=== PATIENT | female | born 1940 | race Caucasian/White ===

== ENCOUNTER → 2017-12-28 10:18 | Outpatient (BNVA) | payer MEDICARE, SELFPAY | PROVIDERS: PCP Student in an Organized Health Care Education/Training Program; Visit Provider Internal Medicine Cardiovascular Disease | DX: I48.0 Paroxysmal atrial fibrillation (principal); I10 Essential (primary) hypertension; E03.9 Hypothyroidism, unspecified; Z95.0 Presence of cardiac pacemaker; E78.2 Mixed hyperlipidemia | CPT/HCPCS: 93280; 99213 ==

== ENCOUNTER 2018-02-15 09:29 | Outpatient (CLI) | payer MEDICARE, SELFPAY ==
--- NOTE | 2018-02-15 09:25 | DI.RAD_ITS ---
SYMPTOM/DIAGNOSIS: S/P RT TKA RIGHT KNEE: Comparison is made with 12/20/16. Standing views were performed. There has been no change in the appearance of the right total knee prosthesis or surrounding bone.
== END 2018-02-15 09:49 ==
PROVIDERS: PCP Student in an Organized Health Care Education/Training Program; Visit Provider Student in an Organized Health Care Education/Training Program
DX: Z96.651 Presence of right artificial knee joint (principal); Z47.1 Aftercare following joint replacement surgery; I10 Essential (primary) hypertension; M17.11 Unilateral primary osteoarthritis, right knee
CPT/HCPCS: 99213; 73560

== ENCOUNTER 2018-03-09 01:19 | Outpatient (CLI) | payer MEDICARE, SELFPAY ==
--- NOTE | 2018-03-09 09:02 | DI.RAD_ITS ---
SYMPTOM/DIAGNOSIS: CHECK FOR HARRELL CAPSULE K21.9 PA AND LATERAL CHEST: 03/09/18 This examination was obtained to evaluate Harrell capsule position. There appears to be a mid esophageal indwelling device. There is also a transvenous cardiac pacemaker in position. Cardiac size is within normal limits. Lungs are clear and well expanded. No pleural effusion seen. Vascular clips noted in right upper quadrant consistent with previous cholecystectomy. 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
== END 2018-03-09 01:39 ==
PROVIDERS: PCP Student in an Organized Health Care Education/Training Program; Visit Provider Internal Medicine Gastroenterology
DX: K21.9 Gastro-esophageal reflux disease without esophagitis (principal); Z95.0 Presence of cardiac pacemaker
CPT/HCPCS: 71046

== ENCOUNTER 2018-03-13 00:44 | Outpatient (CLI) | payer MEDICARE, SELFPAY ==
--- NOTE | 2018-03-13 08:05 | DI.RAD_ITS ---
SYMPTOM/DIAGNOSIS: CHECK FOR HARRELL CAPSULE PA AND LATERAL CHEST: 03/13 Heart is not enlarged. Lungs are clear. There is a transvenous cardiac pacemaker in position. Presumed HARRELL capsule noted overlying mid-esophagus. No change from 03/09/18.
== END 2018-03-13 01:04 ==
PROVIDERS: PCP Student in an Organized Health Care Education/Training Program; Visit Provider Internal Medicine Gastroenterology
DX: Z95.0 Presence of cardiac pacemaker (principal); K21.9 Gastro-esophageal reflux disease without esophagitis
CPT/HCPCS: 71046

== ENCOUNTER 2018-03-13 07:08 | Outpatient (CLI) | payer MEDICARE, SELFPAY ==
[2018-03-13 07:48] LABS: HCT 42.5 % (36.0-46.0); HGB 14.4 g/dL (12.0-15.5); Mean Corp. HGB Concentration 33.9 g/dL (32.0-36.0); Mean Corpuscular Hemoglobin 32.3 pg (27.0-33.0); Mean Corpuscular Volume 95.3 fL (80-95); Mean Platelet Volume 12.3 fL (8.0-11.0); Platelet Count 162 x1000/uL (130-400); RBC 4.46 m/cumm (4.00-5.20); RBC Distribution Width 13.9 % (11.7-14.6); White Blood Cell Count 3.87 k/cumm (4.4-10.8)
[2018-03-13 09:08] LABS: Anion Gap 9.6 mmol/L (3-11); BUN 12 mg/dL (7-18); CO2 29.4 mmol/L (21.0-32.0); CREATININE 0.77 mg/dL (0.55-1.02); Calcium 9.3 mg/dL (8.5-10.1); Chloride 104 mmol/L (98-107); Cholesterol 204 mg/dL (50-200); Glucose 139 mg/dL (70-100); HDL Cholesterol 90 mg/dL (40-60); LDL CHOLESTEROL 101 mg/dL (<100); Potassium 4.2 mmol/L (3.5-5.1); Sodium 143 mmol/L (136-145); Triglyceride 75 mg/dL (30-150)
== END 2018-03-13 07:28 ==
PROVIDERS: PCP Student in an Organized Health Care Education/Training Program; Visit Provider Student in an Organized Health Care Education/Training Program
DX: E11.9 Type 2 diabetes mellitus without complications (principal); E03.9 Hypothyroidism, unspecified; I10 Essential (primary) hypertension; E78.5 Hyperlipidemia, unspecified
CPT/HCPCS: 36415; 80048; 80061; 83721; 85027; 71046; 84443

== ENCOUNTER 2018-03-17 00:35 | Outpatient (CLI) | payer MEDICARE, SELFPAY ==
--- NOTE | 2018-03-17 08:30 | DI.RAD_ITS ---
SYMPTOMS/DIAGNOSIS: CHECK FOR HARRELL CAPSULE PA AND LATERAL CHEST: The lungs are free of infiltrate. There is no pleural effusion. The cardiovascular structures are intact. Pacing wires are noted ending in the right ventricle and right atrium and are in stable position when compared with prior images. A Harrell capsule is noted overlying the mid esophagus, also unchanged in position when compared with previous images. SUMMARY: No acute abnormality is seen.
== END 2018-03-17 00:55 ==
PROVIDERS: PCP Student in an Organized Health Care Education/Training Program; Visit Provider Internal Medicine Gastroenterology
DX: K21.9 Gastro-esophageal reflux disease without esophagitis (principal); Z95.0 Presence of cardiac pacemaker
CPT/HCPCS: 71046

== ENCOUNTER 2018-03-22 09:41 | Outpatient (CLI) | payer MEDICARE, SELFPAY ==
--- NOTE | 2018-03-22 09:20 | DI.RAD_ITS ---
SYMPTOMS/DIAGNOSIS: CHECK FOR HARRELL CAPSULE, K21.9 PA CHEST: Comparison is made with February,. A pacemaker is again noted. The heart size is normal. An electronic device is again noted posterior to the heart. The lungs are clear. IMPRESSION: No change in position of the Harrell capsule compared with the previous exam.
== END 2018-03-22 10:01 ==
PROVIDERS: PCP Student in an Organized Health Care Education/Training Program; Visit Provider Internal Medicine Gastroenterology
DX: K21.9 Gastro-esophageal reflux disease without esophagitis (principal); Z95.0 Presence of cardiac pacemaker
CPT/HCPCS: 71045

== ENCOUNTER 2018-03-24 00:28 | Outpatient (CLI) | payer MEDICARE, SELFPAY ==
--- NOTE | 2018-03-24 09:16 | DI.RAD_ITS ---
SYMPTOMS/DIAGNOSIS: CHECK FOR HARRELL CAPSULE PA CHEST: A single view was obtained and shows the previously noted Harrell capsule unchanged in position overlying the mid esophagus. The lungs are clear and well expanded.
== END 2018-03-24 00:48 ==
PROVIDERS: PCP Student in an Organized Health Care Education/Training Program; Visit Provider Internal Medicine Gastroenterology
DX: K21.9 Gastro-esophageal reflux disease without esophagitis (principal); Z95.0 Presence of cardiac pacemaker
CPT/HCPCS: 71046

== ENCOUNTER 2018-03-31 09:50 | Outpatient (CLI) | payer MEDICARE, SELFPAY ==
--- NOTE | 2018-03-31 09:50 | DI.RAD_ITS ---
SYMPTOM/DIAGNOSIS: CHECK FOR HARRELL CAPSULE PA CHEST: Comparison is made with prior examinations. The Harrell capsule is not visualized on the current examination. Pacing wires are stable in position. Heart size and pulmonary vasculature are within normal limits. The lungs are clear and well expanded. No effusions or pneumothoraces are identified. Surgical clips are seen in the right upper quadrant, likely reflecting prior cholecystectomy. IMPRESSION: 1. No acute pulmonary process. 2. Non visualization of the Harrell capsule.
== END 2018-03-31 10:10 ==
PROVIDERS: PCP Student in an Organized Health Care Education/Training Program; Visit Provider Internal Medicine Gastroenterology
DX: K21.9 Gastro-esophageal reflux disease without esophagitis (principal); Z95.0 Presence of cardiac pacemaker
CPT/HCPCS: 71045

== ENCOUNTER → 2018-04-04 12:49 | Outpatient (BNVA) | payer MEDICARE, SELFPAY | PROVIDERS: PCP Student in an Organized Health Care Education/Training Program; Visit Provider Nurse Practitioner Primary Care | DX: R69 Illness, unspecified (principal) ==

== ENCOUNTER 2018-04-04 13:30 | Outpatient (CLI) | payer MEDICARE, SELFPAY | END 2018-04-04 13:50 | PROVIDERS: PCP Student in an Organized Health Care Education/Training Program; Visit Provider Nurse Practitioner Primary Care | DX: I44.30 Unspecified atrioventricular block (principal); I48.91 Unspecified atrial fibrillation; E66.9 Obesity, unspecified; I10 Essential (primary) hypertension; E11.9 Type 2 diabetes mellitus without complications; Z45.018 Encounter for adjustment and management of other part of cardiac pacemaker | CPT/HCPCS: 93288; 99213 ==

== ENCOUNTER 2018-05-19 09:39 | Outpatient (CLI) | payer MEDICARE, SELFPAY ==
--- NOTE | 2018-05-19 09:45 | DI.RAD_ITS ---
SYMPTOM/DIAGNOSIS: RT LEG PAIN RIGHT TIBIA AND FIBULA: Comparison is made with right knee dated 15 February 2018. There is a total knee prosthesis which is partially included on the exam. No fracture or abnormal bony lucencies are seen. There are degenerative changes of the ankle and calcaneal spurs. IMPRESSION: No acute abnormality.
== END 2018-05-19 09:59 ==
PROVIDERS: PCP Student in an Organized Health Care Education/Training Program; Referring Provider Student in an Organized Health Care Education/Training Program; Visit Provider Student in an Organized Health Care Education/Training Program
DX: M79.604 Pain in right leg (principal); Z96.651 Presence of right artificial knee joint; M19.071 Primary osteoarthritis, right ankle and foot; M77.31 Calcaneal spur, right foot; M79.89 Other specified soft tissue disorders
CPT/HCPCS: 99214; 73590

== ENCOUNTER 2018-05-22 00:38 | Outpatient (CLI) | payer MEDICARE, SELFPAY ==
--- NOTE | 2018-05-22 11:35 | DI.US_ITS ---
SYMPTOM/DIAGNOSIS: RT LEG SWELLING, ? DVT, M79.89 RIGHT LOWER EXTREMITY ULTRASOUND: The femoral, popliteal and calf veins as well as saphenous vein appear free of thrombus. The Doppler venous wave form augments normally. No superficial venous thrombosis is seen. There is no evidence of popliteal cyst or hematoma. IMPRESSION: Negative right lower extremity ultrasound. No evidence of DVT.
== END 2018-05-22 00:58 ==
PROVIDERS: PCP Student in an Organized Health Care Education/Training Program; Visit Provider Student in an Organized Health Care Education/Training Program
DX: R22.41 Localized swelling, mass and lump, right lower limb (principal); M79.89 Other specified soft tissue disorders
CPT/HCPCS: 93971

== ENCOUNTER → 2018-06-16 09:10 | Outpatient (BNVA) | payer MEDICARE, SELFPAY | PROVIDERS: PCP Student in an Organized Health Care Education/Training Program; Referring Provider Student in an Organized Health Care Education/Training Program; Visit Provider Student in an Organized Health Care Education/Training Program | DX: M79.604 Pain in right leg (principal) | CPT/HCPCS: 99213 ==

== ENCOUNTER 2018-06-22 00:56 | Outpatient (CLI) | payer MEDICARE, SELFPAY ==
--- NOTE | 2018-06-22 12:35 | DI.CT_ITS ---
SYMPTOMS/DIAGNOSIS: RT LOWER LEG PAIN, M79.661 CT OF THE RIGHT LOWER LEG: Comparison is made with plain films dated . Images were performed from the distal femoral metaphysis through the inferior aspect of the callous. There is a total knee prothesis in place which creates artifact. No surrounding bony lucencies are seen. The bones appear osteoporotic. A smoothly marginated bony density is seen beneath the tip of the lateral malleolus. Vascular calcifications are seen. There are dilated superficial venous varicosities. IMPRESSION: Unremarkable total knee prosthesis. Osteoporosis. No evidence of fracture.
== END 2018-06-22 01:16 ==
PROVIDERS: PCP Student in an Organized Health Care Education/Training Program; Visit Provider Physician Assistant
DX: M79.661 Pain in right lower leg (principal); Z96.651 Presence of right artificial knee joint; M81.0 Age-related osteoporosis without current pathological fracture
CPT/HCPCS: 73700

== ENCOUNTER → 2018-07-13 13:32 | Outpatient (BNVA) | payer MEDICARE, SELFPAY | PROVIDERS: PCP Student in an Organized Health Care Education/Training Program; Visit Provider Internal Medicine Cardiovascular Disease | DX: R69 Illness, unspecified (principal) ==

== ENCOUNTER 2018-07-13 14:40 | Outpatient (CLI) | payer MEDICARE, SELFPAY | END 2018-07-13 15:00 | PROVIDERS: PCP Student in an Organized Health Care Education/Training Program; Visit Provider Internal Medicine Cardiovascular Disease | DX: I44.30 Unspecified atrioventricular block (principal); I48.0 Paroxysmal atrial fibrillation; I10 Essential (primary) hypertension; Z45.018 Encounter for adjustment and management of other part of cardiac pacemaker; E78.5 Hyperlipidemia, unspecified; E03.9 Hypothyroidism, unspecified; Z79.01 Long term (current) use of anticoagulants | CPT/HCPCS: 93280; 99214 ==

== ENCOUNTER → 2018-07-31 13:33 | Outpatient (BNVA) | payer MEDICARE, SELFPAY | PROVIDERS: PCP Student in an Organized Health Care Education/Training Program; Referring Provider Student in an Organized Health Care Education/Training Program; Visit Provider Student in an Organized Health Care Education/Training Program | DX: M79.604 Pain in right leg (principal) | CPT/HCPCS: 99213 ==

== ENCOUNTER 2018-09-22 01:19 | Outpatient (CLI) | payer MEDICARE, SELFPAY ==
--- NOTE | 2018-09-22 09:47 | DI.CT_ITS ---
SYMPTOMS/DIAGNOSIS: GERD, K21.9, ABNL WT LOSS, R63.4 CT SCAN OF THE ABDOMEN AND PELVIS: CT scan of the abdomen and pelvis was performed following the uneventful administration of intravenous contrast material. The visualized lung bases are clear. There is a moderate sized hiatal hernia present. The liver is normal in size. No suspicious hepatic mass is seen. The patient is status post cholecystectomy. There is no biliary ductal dilatation. The portal, superior mesenteric and spleen veins are patent. The pancreas, spleen and adrenal glands show no acute abnormality. The kidneys show normal and symmetric enhancement. No solid renal mass or obstruction is present. The urinary bladder is intact. The patient appears to be status post hysterectomy. There is mild atherosclerosis of the abdominal aorta but no aneurysmal dilatation is seen. No significant abdominal or pelvic adenopathy, ascites or pneumoperitoneum is present. There is diverticulosis of the colon but no evidence of acute diverticulitis. The bowel shows no evidence of obstruction or inflammation. There is a normal appendix present. Incidental note is made of a circumaortic left renal vein. Degenerative changes are present in the spine. There is a right convex scoliosis of the lumbar spine noted. IMPRESSION: 1. No evidence of abdominal mass or adenopathy. 2. Moderate hiatal hernia. 3. Colonic diverticulosis but no evidence of acute diverticulitis.
[2018-09-22] MEDS: Omnipaque 350 MG/ML 100 ML BTL IJ (09:48)
== END 2018-09-22 01:39 ==
PROVIDERS: PCP Student in an Organized Health Care Education/Training Program; Visit Provider Internal Medicine Gastroenterology
DX: K21.9 Gastro-esophageal reflux disease without esophagitis (principal); R63.4 Abnormal weight loss; K44.9 Diaphragmatic hernia without obstruction or gangrene; K57.30 Diverticulosis of large intestine without perforation or abscess without bleeding
CPT/HCPCS: 74177; J3490

== ENCOUNTER 2018-11-14 00:19 | Outpatient (CLI) | payer MEDICARE, SELFPAY ==
--- NOTE | 2018-11-14 13:48 | DI.NM_ITS ---
SYMPTOMS/DIAGNOSIS: GASTROPARESIS SYNDROME GASTRIC EMPTYING EXAMINATION: The patient received 1.0 mCi of technetium 99m sulfur colloid according to protocol. The 1-hour gastric emptying time was 103%, the 2-hour gastric emptying percentage was 57%, the 4-hour gastric emptying percent was 7%. These are within normal limits. IMPRESSION: Normal gastric emptying examination.
== END 2018-11-14 00:39 ==
PROVIDERS: PCP Student in an Organized Health Care Education/Training Program; Visit Provider Surgery
DX: K31.84 Gastroparesis (principal)
CPT/HCPCS: 78265

== ENCOUNTER 2018-12-01 02:29 | Outpatient (CLI) | payer MEDICARE, SELFPAY ==
--- NOTE | 2018-12-01 12:50 | DI.MAMMO_ITS ---
SYMPTOMS/DIAGNOSIS: SCREENING, Z12.31 MAMMOGRAM: Mammograms were interpreted according to the usual protocol including computer analysis with CAD system, tomosynthesis and C view imaging. The breasts are heterogeneously dense. No dominant mass or clumped microcalcification is identified in either breast. The current examination is compared with previous examinations including August 2017 and there has been no gross interval change in appearance in comparison with the previous studies. CONCLUSION: No significant evidence of malignancy at this time. Routine screening examinations are suggested at yearly intervals due to the family history of breast carcinoma. Category 1, breast density category C. MQSA ASSESSMENT OF FINDINGS: Negative. Category 1. Patient will receive a letter notifying them of these results. Bi-RADS category C. The breasts are heterogeneously dense, which may obscure small masses.
== END 2018-12-01 02:49 ==
PROVIDERS: PCP Student in an Organized Health Care Education/Training Program; Visit Provider Student in an Organized Health Care Education/Training Program
DX: Z12.31 Encounter for screening mammogram for malignant neoplasm of breast (principal)
CPT/HCPCS: 77063; 77067

== ENCOUNTER 2019-03-05 08:08 | Outpatient (CLI) | payer MEDICARE, SELFPAY ==
[2019-03-05 09:58] LABS: TSH (W/Ref FT4) 4.28 uIU/mL (0.36-3.74)
== END 2019-03-05 08:28 ==
PROVIDERS: PCP Student in an Organized Health Care Education/Training Program; Visit Provider Student in an Organized Health Care Education/Training Program
DX: E03.9 Hypothyroidism, unspecified (principal); E04.1 Nontoxic single thyroid nodule
CPT/HCPCS: 36415; 84439; 84443

== ENCOUNTER 2019-03-26 15:07 | Outpatient (CLI) | payer MEDICARE, SELFPAY ==
--- NOTE | 2019-03-26 15:03 | DI.RAD_ITS ---
EXAM: XR HIP RT COMPLETE AND AP PELVIS INDICATION: Pain after a mechanical fall, W19.XXXA. COMPARISON: No exams were available for comparison TECHNIQUE: 2D digital imaging was performed. FINDINGS: On the lateral view, there appears to be discontinuity of the cortex in the subcapital region of the right femur suspicious for nondisplaced subcapital fracture. No other fracture or dislocation is see n. The bones are normally mineralized. The soft tissues are unremarkable. IMPRESSION: Findings suspicious for nondisplaced subcapital right femoral neck fracture. A CT scan of the right hip is requested for further evaluation.
--- NOTE | 2019-03-26 15:05 | DI.RAD_ITS ---
EXAM: XR KNEE RT 3V AP,LAT,IFEANYI INDICATION: Pain after a mechanical fall, W19.XXXA. COMPARISON: XR knee RT 2V AP,lat from 02/15/2018 TECHNIQUE: 2D digital imaging was performed. FINDINGS: There are again seen postsurgical changes of a right total knee replacement. The orthopedic hardware appears in good position. No fracture is identified. The soft tissues are unremarkable. IMPRESSION: No acute fracture or dislocation.
== END 2019-03-26 15:27 ==
PROVIDERS: PCP Student in an Organized Health Care Education/Training Program; Visit Provider Family Medicine
DX: M25.551 Pain in right hip (principal); M21.851 Other specified acquired deformities of right thigh; M25.561 Pain in right knee; Z96.651 Presence of right artificial knee joint; W19.XXXA Unspecified fall, initial encounter
CPT/HCPCS: 73562; 73502

== ENCOUNTER 2019-03-26 16:27 | Emergency (ER) | payer MEDICARE, SELFPAY ==
[2019-03-26 16:28] VITALS: BP 154/72; PULSE 83; RESP 12; TEMP 36.5; O2SAT 98
--- NOTE | 2019-03-26 16:33 | ED.GENADUL_ITS ---
Discharge Plan Disposition Patient Disposition: HOME Condition: Improving Discharge Details Chief Complaint: Orthopedic Clinical Impression: Traumatic ecchymosis of multiple sites of right lower extremity Primary Care Provider: Vicenta Freed ED Provider: Brandon Wall Home Meds and New Rx's Prescriptions: Continued psyllium husk [Metamucil] 0.4 gram capsule 1.2 gm PO BID RF: 0 flecainide 150 mg tablet 150 mg PO BID Qty: 180 RF: 3 glucosam-chond vl-[id number]-sv ac 1 EACH capsule 1 ea PO DAILY RF: 0 albuterol sulfate [ProAir HFA] 8.5 GM HFA aerosol inhaler 2 puff Inhalation Q4H PRN PRNQty: 3 RF: 3 omeprazole 40 MG capsule,delayed release(DR/EC) 40 mg PO BID RF: 0 metoprolol tartrate 25 mg tablet 12.5 mg PO BID Qty: 90 RF: 3 Eliquis 5 mg tablet 5 mg PO BID Qty: 180 RF: 1 Flovent HFA 110 mcg/actuation HFA aerosol inhaler 2 puff Inhalation BID Qty: 3 RF: 3 levothyroxine 100 mcg tablet 100 mcg PO DAILY Qty: 90 RF: 3 multivitamin 1 EACH capsule 1 ea PO DAILY RF: 0 acetaminophen [Mapap Extra Strength] 500 MG tablet 1,000 mg PO TID PRN PRNQty: 120 RF: 0 Lactobacillus acidophilus Tablet,Chewable 2 tab PO DAILY RF: 0 Discharge Instructions Instructions: Contusion in Adults (ED) Additional Instructions: Follow-up in clinic if you have pain that persist beyond 7 to 10 days time. Apply ice 20 minutes of time to reduce inflammation and discomfort. May use Tylenol if needed for pain. Return to the emergency department for any acute concerns. Continue your regular medications. Medical Decision Making 79-year-old female who fell 1 week ago and is developed right hip and knee pain since that time. Referred from outpatient clinic after outpatient x-rays of the right hip revealed discontinuity of the cortex in the subcapital region of the right femur suspicious for nondisplaced subcapital fracture. The knee x-ray was unremarkable. Patient does have tenderness with axial loading and palpation of the right hip. Given the question of a subtle finding on the x-ray, the patient was referred for noncontrast CT scan of the right lower extremity. This was notable for no evidence of bony injury. Laboratories reassuring. Patient with recent fall, ecchymosis, now no evidence of bony injury and therefore consistent with muscular contusion and bruising. Discussed with her and spit a course of resolution. She is stable and appropriate for outpatient management. Lab Data Lab results reviewed: Yes I reviewed the patient's lab results. Labs: Laboratory Results - last 24 hr 03/26/19 03/26/19 03/26/19 16:58 16:58 16:58 WBC 5.17 RBC 4.07 Hgb 13.1 Hct 39.9 MCV 98.0 H MCH 32.2 MCHC 32.8 RDW 13.5 Plt Count 181 MPV 10.9 Immature Gran % 0.2 Neutrophils % 53.0 Lymphocytes % 32.9 Monocytes % 11.2 Eosinophils % 2.5 Basophils % 0.2 Absolute Neutrophils 2.74 Absolute Lymphocytes 1.70 Absolute Monocytes 0.58 Absolute Eosinophils 0.13 Absolute Basophils 0.01 PT 10.6 INR 1.1 Sodium 142 Potassium 4.0 Chloride 104 Carbon Dioxide 30.9 Anion Gap 7.1 BUN 19 H Creatinine 0.77 Estimated GFR/1.73 m2 >= 60.00 Glucose 124 H Calcium 8.9 Total Bilirubin 0.3 AST 18 ALT 28 Alkaline Phosphatase 49 Total Protein 7.1 Albumin 3.6 HPI General Mode of arrival: ambulatory . Date/Time Provider Initiated Documentation: 03/26/19 16:27 . Limitations to Documentation: no limitations . Information obtained by: patient . History of Present Illness 79 year old F presents to the emergency department with the chief complaint of Possible right hip fracture., described as moderate, and is localized to the right and lower extremity. Patient reports no radiation. and it has been constant. Movement worsens symptoms . Patient notes other (Bruising). Patient did receive the following treatments prior to arrival, none Related Data Home Medications Medication Instructions Recorded Confirmed glucosam-chond ug-[id number]-wl ac 1 ea PO DAILY NS 07/03/12 03/26/19 multivitamin 1 ea PO DAILY 11/05/12 03/26/19 albuterol sulfate [ProAir HFA] 2 puff INHALATION Q4H PRN PRN #3 06/28/16 03/26/19 inhaler acetaminophen [Mapap Extra 1,000 mg PO TID PRN PRN #120 tab 12/03/16 03/26/19 Strength] omeprazole 40 mg PO BID tab-cap 11/17/17 03/26/19 metoprolol tartrate 25 mg tablet 12.5 mg PO BID #90 tab 06/18/18 03/26/19 apixaban 5 mg tablet 5 mg PO BID #180 tab-cap 09/29/18 03/26/19 fluticasone propionate 110 2 puff INHALATION BID #3 inh 01/11/19 03/26/19 mcg/actuation HFA aerosol inhaler flecainide 150 mg tablet 150 mg PO BID #180 tab-cap 03/01/19 03/26/19 psyllium husk 0.4 gram capsule 1.2 gm PO BID cap 03/01/19 03/26/19 levothyroxine 100 mcg tablet 100 mcg PO DAILY #90 tab-cap 03/06/19 03/26/19 Lactobacillus acidophilus 2 tab PO DAILY 03/26/19 03/26/19 Previous Rx's Medication Instructions Recorded acetaminophen [Mapap Extra 1,000 mg PO TID PRN PRN #120 tab 12/03/16 Strength] metoprolol tartrate 25 mg tablet 12.5 mg PO BID #90 tab 06/18/18 apixaban 5 mg tablet 5 mg PO BID #180 tab-cap 09/29/18 fluticasone propionate 110 2 puff INHALATION BID #3 inh 01/11/19 mcg/actuation HFA aerosol inhaler flecainide 150 mg tablet 150 mg PO BID #180 tab-cap 03/01/19 levothyroxine 100 mcg tablet 100 mcg PO DAILY #90 tab-cap 03/06/19 Allergies Allergy/AdvReac Type Severity Reaction Status Date / Time ranitidine Allergy Severe WHEEZING Verified 03/26/19 16:35 cefadroxil Allergy Mild Verified 03/26/19 16:35 ciprofloxacin AdvReac Intermediate WEAKNESS Verified 03/26/19 16:35 pneumococcal 13-valent AdvReac Intermediate temp and Verified 03/26/19 16:35 conjugate to body aches [From Prevnar 13 (PF)] sucralfate AdvReac Intermediate N/V Verified 03/26/19 16:35 General Stated Complaint: Orthopedic DEXTER: 3 Review of Systems Narrative: 6 systems reviewed and otherwise neg [facility] Medical History Asthma Atrial fibrillation Essential hypertension GERD without esophagitis Hypothyroidism Sensorineural hearing loss of both ears Surgical History Cardiac Cath, 2008 Cholecystectomy Colonoscopy - IV Sedation (03/17/16) EGD - MAC (06/29/17) Extraction of cataract B/L Hernia, hiatal (banding) Hyseterectomy, Total Laparoscopic w/ BSO (07/01/16) +Endometrial cancer Pacemaker (12/04/13) Replacement of total knee joint (12/03/16) R knee Dr Del Cid sentinal lymph node dissection (07/01/16) NEG for mets from endometrium upper GI Series (10/05/17) for sx of epigastric dysphagia,GERD. Done by Dr. Duncan. Impression: Moderate sized Hiatal Hernia. Marked gastroesophageal reflux. Family History Mother , old age at age 98. No problems noted. Father , Heart disease at age 64. Heart disease [place] Sister , Colon [place] Personal history of malignant neoplasm Sister , Heart problems at age 72. Personal history of malignant neoplasm Breast cancer, dx'ed in her 60s Heart disease Sister Hypertensive disorder, systemic arterial Diabetes Sister Diabetes Sister Hypertensive disorder, systemic arterial Brother , Parkinson's at age 75. Personal history of malignant neoplasm Brother Parkinson's disease Brother , Heart condition at age 62. Hypertensive disorder, systemic arterial Diabetes Brother Hypertensive disorder, systemic arterial Diabetes Social History (Updated 03/26/19 @ 15:45 by Colleen Melendrez LPN) Smoking/Tobacco Use Status: Never Alcohol Intake: never Drug use: Never Substance use type: does not use Adopted: No Foster care: No Housing: apartment Number of Children: 0 number of grandchildren: 0 Communication Needs: Corrective Lenses current occupation: retired from [employer] Pets and animals: No Current gender identity: female What is your relationship status?: Panel score (0-1 are the most socially isolated patients): 0 Seatbelt use: always Working smoke detector in home: Yes Fire extinguisher in home: Yes Carbon monox detector in home: Yes Firearms in home: No Do you feel safe at home: Yes Do you feel safe in your relationship?: Yes Exam Narrative Exam Narrative: GEN: awake, alert, oriented 3. Pleasant, well groomed, interactive. HEAD: Normocephalic, atraumatic ENT: Mucous membranes moist, oropharynx unremarkable, External ear exam unremarkable EYES: PERRL, EOMI NECK: Full ROM, no CONSTANCE, no menigismus CHEST/RESP: Nontender, clear to auscultation bilateral, no wheeze/rhonchi/rales CARDIOVASCULAR: RRR, no murmur, rub dorian. 2+ Rad pulse bilateral ABDOMEN: Soft, nontender, no mass. +Bowel sounds EXT: Full ROM, the right lateral hip is ecchymotic and tender to palpation. No significant pain with internal or external rotation. Pain with axial loading of the femur. There is bruising and minimal tenderness of the right lateral knee. Neuro: Grossly normal neurologic exam, conversant, interactive. Psych: Speech fluent, thoughts congruent, affect normal Course Vital Signs Vital signs: Vital Signs Temperature 36.5 C 03/26/19 16:28 Pulse 83 03/26/19 16:28 Respiratory Rate 12 03/26/19 16:28 Blood Pressure 154/72 H 03/26/19 16:28 Pulse Oximetry 98 03/26/19 16:28 Temperature 36.5 C 03/26/19 16:28 Temperature Source Temporal Artery Scan 03/26/19 16:28 Pulse 83 03/26/19 16:28 Respiratory Rate 12 03/26/19 16:28 Blood Pressure 154/72 H 03/26/19 16:28 Blood Pressure Position Sitting 03/26/19 16:28 Pulse Oximetry 98 03/26/19 16:28 Oxygen Delivery Method Room Air 03/26/19 16:28 Oxygen Flow Rate 0 03/26/19 16:28 Pain Level 5 03/26/19 16:28
[2019-03-26] MEDS: Normal Saline Flush 10 ML SYR IVP (17:03)
[2019-03-26 17:11] LABS: Abs Immature Grans 0.01 k/cumm (0.0-0.09); Absolute Basophil Count 0.01 k/cumm (0.0-0.2); Absolute Eosinophil Count 0.13 k/cumm (0.0-0.7); Absolute Monocyte Count 0.58 k/cumm (0.11-0.7); Absolute Neutrophil Count 2.74 k/cumm (1.2-6.7); Basophils % 0.2; Eosinophils % 2.5; HCT 39.9 % (36.0-46.0); HGB 13.1 g/dL (12.0-15.5); Immature Grans % 0.2; Lymphocytes % 32.9; Mean Corp. HGB Concentration 32.8 g/dL (32.0-36.0); Mean Corpuscular Hemoglobin 32.2 pg (27.0-33.0); Mean Platelet Volume 10.9 fL (8.0-11.0); Monocytes % 11.2; Platelet Count 181 x1000/uL (130-400); RBC 4.07 m/cumm (4.00-5.20); RBC Distribution Width 13.5 % (11.7-14.6); White Blood Cell Count 5.17 k/cumm (4.4-10.8)
[2019-03-26 17:18] LABS: INR 1.1 (0.9-1.1); Prothrombin Time 10.6 sec (9.3-11.0)
--- NOTE | 2019-03-26 17:18 | DI.CT_ITS ---
EXAM: CT LOWER EXTREMITY RT WO CLINICAL HISTORY: R hip question fracture. Pain TECHNIQUE: Imaging Protocol: Axial computed tomography images with coronal and sagittal reformatted images were created and reviewed. COMPARISON: XR HIP RT COMPLETE AP PELVIS from 03/26/2019 FINDINGS: Bones: The osseous structures and articular surfaces are intact. There is no evidence of fracture or dislocation. Bony alignment is satisfactory. There is no evidence of joint space narrowing or cysti c degeneration seen. There is periarticular spurring of the acetabulum and the femoral head. Soft Tissues: Normal. IMPRESSION: No acute fracture or dislocation. If symptoms persist, an MRI may be considered for further evaluati on. DATA REPOSITORY: All CT scans at this facility are submitted to the National Radiology Data Registry (NRDR) Dose Index Registry (DIR) with the [employer] (ACR). RADIATION OPTIMIZATION: All CT scans at this facility use at least one of these dose optimization te chniques: automated exposure control; mA and/or kV adjustment per patient size (includes targeted exa ms where dose is matched to clinical indication); or iterative reconstruction.
[2019-03-26 17:21] LABS: ALT 28 U/L (14-59); AST 18 U/L (15-37); Albumin 3.6 g/dL (3.4-5.0); Alkaline Phosphatase 49 U/L (46-116); Anion Gap 7.1 mmol/L (3-11); BUN 19 mg/dL (7-18); Bilirubin, Total 0.3 mg/dL (0.2-1.0); CO2 30.9 mmol/L (21.0-32.0); CREATININE 0.77 mg/dL (0.55-1.02); Calcium 8.9 mg/dL (8.5-10.1); Chloride 104 mmol/L (98-107); Glucose 124 mg/dL (74-106); Sodium 142 mmol/L (136-145); Total Protein 7.1 g/dL (6.4-8.2)
--- NOTE | 2019-03-26 17:30 | DI.VRAD_ITS ---
PROCEDURE INFORMATION: Exam: CT Right Lower Extremity Without Contrast, Hip Exam date and time: 03/26/2019 5:13 PM Age: 79 years old Clinical history: Pain; Hip; Right TECHNIQUE: Imaging protocol: CT of the Right lower extremity without contrast was performed. Exam focused on the hip. COMPARISON: CR XR HIP RT COMPLETE AP PELVIS 03/26/2019 2:57 PM FINDINGS: Bones/joints: Normal. No acute fracture or dislocation. Soft tissues: Normal. IMPRESSION: Unremarkable CT. Dictated and Authenticated by: Antonio Maldonado MD. Ordering:JR Taylor MD
[2019-03-26 17:59] VITALS: BP 119/80; PULSE 65; TEMP 37; O2SAT 97
== END 2019-03-26 18:03 | disposition home or self-care (01) ==
PROVIDERS: Emergency Provider Emergency Medicine; PCP Student in an Organized Health Care Education/Training Program
DX: S70.01XA Contusion of right hip, initial encounter (principal); S80.01XA Contusion of right knee, initial encounter; W19.XXXA Unspecified fall, initial encounter; Z79.01 Long term (current) use of anticoagulants; I48.91 Unspecified atrial fibrillation; I10 Essential (primary) hypertension
CPT/HCPCS: 36415; 73562; 80053; 86900; 86901; 99284; 73502; 73700; 85025; 85610

== ENCOUNTER → 2019-05-04 10:02 | Outpatient (BNVA) | payer MEDICARE, SELFPAY | PROVIDERS: PCP Student in an Organized Health Care Education/Training Program; Referring Provider Student in an Organized Health Care Education/Training Program; Visit Provider Student in an Organized Health Care Education/Training Program | DX: M70.61 Trochanteric bursitis, right hip (principal); M25.551 Pain in right hip; G57.01 Lesion of sciatic nerve, right lower limb; I10 Essential (primary) hypertension | CPT/HCPCS: 20610; 99213; J1040 ==

== ENCOUNTER 2019-06-14 08:33 | Outpatient (CLI) | payer MEDICARE, SELFPAY ==
[2019-06-14 09:53] LABS: TSH (W/Ref FT4) 2.15 uIU/mL (0.36-3.74)
== END 2019-06-14 08:53 ==
PROVIDERS: PCP Student in an Organized Health Care Education/Training Program; Visit Provider Student in an Organized Health Care Education/Training Program
DX: E03.9 Hypothyroidism, unspecified (principal); E04.1 Nontoxic single thyroid nodule; R23.2 Flushing
CPT/HCPCS: 36415; 84443

== ENCOUNTER → 2019-06-15 10:39 | Outpatient (BNVA) | payer MEDICARE, SELFPAY | PROVIDERS: PCP Student in an Organized Health Care Education/Training Program; Referring Provider Student in an Organized Health Care Education/Training Program; Visit Provider Student in an Organized Health Care Education/Training Program | DX: G57.01 Lesion of sciatic nerve, right lower limb (principal); M70.61 Trochanteric bursitis, right hip; Z98.890 Other specified postprocedural states; I10 Essential (primary) hypertension | CPT/HCPCS: 99213 ==

== ENCOUNTER 2019-06-19 01:59 | Outpatient (CLI) | payer MEDICARE, SELFPAY ==
--- NOTE | 2019-06-19 12:00 | DI.US_ITS ---
EXAM: US THYROID CLINICAL HISTORY: thyroid nodules, e04.1, flushing, r23.2, ? change in nodules TECHNIQUE: Ultrasound performed using standard protocol. COMPARISON: US lower extremity venous RT from 05/22/2018 FINDINGS: Thyroid ultrasound was performed according to the usual protocol. Right thyroid lobe measures 42 x 1 4 x 14 millimeters. Left thyroid lobe measures 41 x 18 x 14 millimeters. Thyroid parenchyma is diff usely heterogeneous. 5 millimeters solid mildly hypoechoic nodule noted, lower pole of left thyroid lobe. No other focal findings. IMPRESSION: Heterogeneous appearance of thyroid parenchyma. 5 millimeter hypoechoic nodule left thyroid lobe. F ollow-up thyroid ultrasound recommended in 12 months. DATA REPOSITORY:
== END 2019-06-19 02:19 ==
PROVIDERS: PCP Student in an Organized Health Care Education/Training Program; Visit Provider Student in an Organized Health Care Education/Training Program
DX: E04.1 Nontoxic single thyroid nodule (principal); R23.2 Flushing
CPT/HCPCS: 76536

== ENCOUNTER 2019-07-03 00:24 | Outpatient (CLI) | payer MEDICARE, SELFPAY ==
--- NOTE | 2019-07-03 09:45 | DI.NM_ITS ---
EXAM: NM BONE SCAN WHOLE BODY GRP CLINICAL HISTORY: RIGHT ILIAC BONE PAIN, M89.8X8. TECHNIQUE: Injected Dose: 26 mCi Tc-99m MDP Delayed Images: 2-3 hours. COMPARISON: CT ABDOMEN PELVIS W from 09/22/2018 from 11/14/2018 FINDINGS: Symmetric axial uptake. Bilateral renal excretion is identified. There are foci of increased radiotra cer uptake on the right at L4-L5 and L5-S1 and on the left at L3-L4. These areas correspond to degen erative changes in the lumbar spine as identified on the CT scan from 09/22/2018. A right convex scol iosis of the lumbar spine is noted. Symmetric uptake is seen in the shoulders bilaterally, which is likely degenerative. Findings consistent with a right knee replacement are noted. There is symmetri c uptake in the feet. This likely reflects degenerative change. Correlation with plain films may be obtained. No abnormal radiotracer uptake is seen the pelvis. No findings to definitely suggest met astatic disease are present. There is symmetric uptake seen in the kidneys and urinary bladder. IMPRESSION: 1. No definite evidence to suggest osseous metastatic disease. 2. Findings most suggestive of degenerative changes in the axial and appendicular skeleton as describ ed above. The radiotracer uptake seen in the lower lumbar spine appears to correspond to the signifi cant degenerative changes in the patient as seen on the CT scan from 09/22/2018. 3. No abnormal radiotracer uptake is seen in the pelvis. DATA REPOSITORY:
== END 2019-07-03 00:44 ==
PROVIDERS: PCP Student in an Organized Health Care Education/Training Program; Visit Provider Student in an Organized Health Care Education/Training Program
DX: M47.817 Spondylosis without myelopathy or radiculopathy, lumbosacral region (principal); M89.8X8 Other specified disorders of bone, other site; M19.011 Primary osteoarthritis, right shoulder; M19.012 Primary osteoarthritis, left shoulder; Z96.651 Presence of right artificial knee joint
CPT/HCPCS: 78306

== ENCOUNTER → 2019-07-09 10:49 | Outpatient (BNVA) | payer MEDICARE, SELFPAY | PROVIDERS: PCP Student in an Organized Health Care Education/Training Program; Referring Provider Student in an Organized Health Care Education/Training Program; Visit Provider Student in an Organized Health Care Education/Training Program | DX: M70.61 Trochanteric bursitis, right hip (principal) | CPT/HCPCS: 20610; 99213; J1030; J1040 ==

== ENCOUNTER → 2019-07-11 09:18 | Outpatient (BNVA) | payer MEDICARE, SELFPAY | PROVIDERS: PCP Student in an Organized Health Care Education/Training Program; Referring Provider Student in an Organized Health Care Education/Training Program; Visit Provider Physician Assistant | DX: I48.91 Unspecified atrial fibrillation (principal); Z79.899 Other long term (current) drug therapy; Z45.018 Encounter for adjustment and management of other part of cardiac pacemaker | CPT/HCPCS: 93280; 99211; 99213 ==

== ENCOUNTER 2019-08-24 08:33 | Outpatient (CLI) | payer MEDICARE, SELFPAY ==
[2019-08-25 14:01] LABS: COVID-19 RT-PCR UVMMC Result Negative (Negative)
== END 2019-08-24 08:53 ==
PROVIDERS: PCP Student in an Organized Health Care Education/Training Program; Visit Provider Student in an Organized Health Care Education/Training Program
DX: R06.02 Shortness of breath (principal); R50.9 Fever, unspecified
CPT/HCPCS: U0003

== ENCOUNTER 2019-09-24 01:26 | Outpatient (CLI) | payer MEDICARE, SELFPAY ==
--- NOTE | 2019-09-24 07:15 | DI.NM_ITS ---
APPROVED REPORT Exam: Pharmacologic Patient Location: Out-Patient Room/Bed: Stress Nurse: Amy Smith RN BMI: 32.11 Baseline Rhythm: Atrial Paced, R BBB. Comment: MN=0.40 Indications: Patient testing today = Flecanide Surveillance (Atrial Fibrillation). Medical History Medical History: Atrial Fibrillation, AV Heart Block, GERD, Hypothyroidism. Cardiac Medications: Flecainide, Apixaban, Metoprolol Tartrate. Allergies: Ranitidine, Cefadroxil, Ciprofloxacin, Pneumococcal 13 Valent, Sucralfate. Cardiac Risk Factors: FHX of CAD, HTN, Asthma Previous Cardiac Procedures: Pacemaker 2013, Cardiac Cath 2008. Pretest Chest Pain Characteristics: None Exercise History: Sedentary Physical Disabilities: Patient unable to walk in treadmill. Lung Sounds: Clear to auscultation Heart Sounds: Regular Stress Test Details Test: Pharmacologic stress testing performed using 0.4 mg of regadenoson per 5 mL given IV over 10 s econds. Reason for pharmacologic stress test: physical limitation. Nuclear Acquisition: Rest Tc-99m/Stress Tc-99m 1 day Rest Isotope: Tc-99m Sestamibi. Dose: 10.8 Date: 09/24/2019 Injection Time: 0845 Stress Isotope: Tc-99m Sestamibi. Dose: 33.2 Date: 09/24/2019 Injection Time: 1025 HR Resting HR Supine: 62 bpm Max Heart Rate (APMHR): 140 bpm Target HR (85% APMHR): 119 bpm Max HR Achieved: 67 bpm % of APMHR: 47 HR response to stress: Blunted HR response to stress BP Resting BP Supine: 138/82 mmHg Max BP: 146/80 mmHg BP response to stress: Blunted blood pressure response to stress. ECG Resting ECG: Atrial Paced, R BBB, MN=0.40. Stress ECG: , RBBB Recovery ECG: RBBB Clinical Stress Symptoms: Chest pain under left breast (rated 7/10) at approximately 20 seconds until approxim ately 4 minutes post Lexiscan injection. Stress ECG Conclusion 1. Patient underwent pharmacologic stress with Lexiscan. 2. Baseline electrocardiogram showed atrial pacing and a right bundle branch block. Blunted heart ra te and blood pressure response to pharmacologic stress. Patient complained of chest pain following t he Lexiscan infusion which persisted into recovery 3. Electrocardiographically the test was nondiagnostic due to inadequate heart rate achieved (47% of predicted for age) 4. There were no dysrhythmias Stress Test Summary STAGE HR BP Symptoms NOTES Supine 62 138/82 1 min post Lexiscan injection 65 130/70 3 min post Lexiscan injection 62 140/72 6 min post Lexiscan injection 64 146/80 9 min post Lexiscan injection 62 142/80 MPI Conclusion There is no evidence of myocardial ischemia or infarction Calculated ejection fraction is 60% Radiologist Interpretation Radiologist Interpretation by: Brandon Toure MD Interpretation Date/Time: 09/25/2019 13:29:54
[2019-09-24] MEDS: Regadenoson 0.4 MG/5 ML SYR IVP (14:50)
== END 2019-09-24 01:46 ==
PROVIDERS: PCP Student in an Organized Health Care Education/Training Program; Visit Provider Physician Assistant
DX: I48.91 Unspecified atrial fibrillation (principal); I44.30 Unspecified atrioventricular block; E03.9 Hypothyroidism, unspecified; K21.9 Gastro-esophageal reflux disease without esophagitis; Z79.899 Other long term (current) drug therapy; Z82.49 Family history of ischemic heart disease and other diseases of the circulatory system
CPT/HCPCS: 78452; 93016; 93018; 93017; J2785

== ENCOUNTER → 2019-09-28 12:30 | Outpatient (BNVA) | payer MEDICARE, SELFPAY | PROVIDERS: PCP Student in an Organized Health Care Education/Training Program; Referring Provider Student in an Organized Health Care Education/Training Program; Visit Provider Internal Medicine Cardiovascular Disease | DX: I48.91 Unspecified atrial fibrillation (principal); Z79.899 Other long term (current) drug therapy; Z95.0 Presence of cardiac pacemaker; I10 Essential (primary) hypertension | CPT/HCPCS: 99213 ==

== ENCOUNTER 2019-10-01 11:28 | Outpatient (CLI) | payer MEDICARE, SELFPAY ==
--- NOTE | 2019-10-01 10:45 | DI.RAD_ITS ---
EXAM: XR LUMBAR SPINE COMPLETE CLINICAL HISTORY: eval spinal stenosis. TECHNIQUE: 2D digital imaging was performed. COMPARISON: No exams were available for comparison FINDINGS: There are 5 lumbar type vertebral bodies. There is a right convex scoliosis of the upper lumbar spin e. No acute fracture or subluxation is seen. There is disc space narrowing at L2-3, L3-4 and L5-S1. Vacuum discs are noted at these levels. There are hypertrophic changes of the facets throughout th e lumbar spine. The bones are osteopenic. There are surgical clips in the right upper quadrant of t he abdomen. IMPRESSION: Moderately severe degenerative changes of the lumbar spine. DATA REPOSITORY: RADIATION DOSE DELIVERED:
== END 2019-10-01 11:48 ==
PROVIDERS: PCP Student in an Organized Health Care Education/Training Program; Referring Provider Student in an Organized Health Care Education/Training Program; Visit Provider Student in an Organized Health Care Education/Training Program
DX: M48.061 Spinal stenosis, lumbar region without neurogenic claudication (principal); M41.26 Other idiopathic scoliosis, lumbar region; M51.37 Other intervertebral disc degeneration, lumbosacral region; M85.88 Other specified disorders of bone density and structure, other site
CPT/HCPCS: 99213; 72110

== ENCOUNTER 2019-10-02 01:45 | Outpatient (CLI) | payer MEDICARE, SELFPAY ==
--- NOTE | 2019-10-02 14:50 | DI.CT_ITS ---
EXAM: CT LUMBAR SPINE WO CLINICAL HISTORY: PAIN, SPINAL STENOSIS LUMBAR REGION M48.061. TECHNIQUE: Imaging Protocol: Axial computed tomography images with coronal and sagittal reformatted images were created and reviewed CONTRAST MATERIAL: Intravenous: Omnipaque 350 Contrast volume:0 mL Oral: No COMPARISON: CT LUMBAR SPINE WITHOUT CONTRAST from 01/06/2016 FINDINGS: Bones: The last intervertebral disc space is designated the L5/S1 level for the numbering purpose of this examination. The vertebral body heights are well maintained. There is a right convex scoliosis of the lumbar spine. No fracture is seen. T12-L1: There is a vacuum disc. Endplate osteophytes are present. No significant central spinal ca nal stenosis is seen no significant neural foraminal stenosis is present. L1-2: No significant central spinal canal stenosis is seen. Mild bilateral neural foraminal narrowi ng is present. There are endplate osteophytes and vacuum disc present. Facet arthropathy is present . L2-3: There is a vacuum disc present. No significant central spinal canal stenosis is seen. There are degenerative changes of the facets. Endplate osteophytes are present. Moderately severe left ne ural foraminal stenosis is seen. No significant right neural foraminal stenosis is present. L3-4: There is a vacuum disc. There is a mild diffuse disc bulge. There are hypertrophic changes o f the facets. These all contribute to cause moderate central spinal canal stenosis. Moderately helen re right and moderate left neural foraminal stenosis is present. L4-5: There is a vacuum disc. Endplate osteophytes are seen. There is diffuse disc bulge. Hypertr ophic changes of the facets are noted. These all contribute to cause moderate central spinal canal s tenosis. There is marked right neural foraminal stenosis. No significant left neural foraminal sten osis is present. L5-S1: There is a vacuum disc. Endplate osteophytes are present. Degenerative changes are seen in the facet joints. No significant central spinal canal stenosis is present. Mild bilateral neural fo raminal stenosis is present. Soft Tissues: The visualized SI joints and sacrum are will maintained. The paraspinal soft tissues a re unremarkable. IMPRESSION: Multilevel degenerative changes in the lumbar spine. The findings result in multilevel central spina l canal and neural foraminal stenosis as described above. RADIATION DOSE DELIVERED: 594.63mGy.cm Total DLP 594.63mGy.cm Total DLP DATA REPOSITORY: All CT scans at this facility are submitted to the National Radiology Data Registry (NRDR) Dose Index Registry (DIR) with the [employer] (A[employer]). RADIATION OPTIMIZATION: All CT scans at this facility use at least one of these dose optimization te chniques: automated exposure control; mA and/or kV adjustment per patient size (includes targeted exa ms where dose is matched to clinical indication); or iterative reconstruction.
== END 2019-10-02 02:05 ==
PROVIDERS: PCP Student in an Organized Health Care Education/Training Program; Visit Provider Student in an Organized Health Care Education/Training Program
DX: M54.5 Low back pain (principal); M48.061 Spinal stenosis, lumbar region without neurogenic claudication; M41.26 Other idiopathic scoliosis, lumbar region; M51.37 Other intervertebral disc degeneration, lumbosacral region
CPT/HCPCS: 72131

== ENCOUNTER 2019-11-06 08:42 | Outpatient (CLI) | payer MEDICARE, SELFPAY ==
--- NOTE | 2019-11-06 06:00 | DI.RAD_ITS ---
EXAM: XR PAIN CLINIC LUMBAR SP 2V CLINICAL HISTORY: Lumbar Radiculopathy TECHNIQUE: 2D and realtime digital imaging was performed. Fluoroscopy was provided in the OR COMPARISON: No exams were available for comparison FINDINGS: C-arm fluoroscopy was utilized by Dr. Maloney during reported transforaminal epidural steroid injection. H anel copy shows needle placement at what appears to be the L5-S1 neural foramen, laterality not specif ied. Fluoro time, 23.9 seconds. IMPRESSION: RADIATION DOSE DELIVERED: Total DLP
[2019-11-06 08:50] VITALS: BP 135/82; PULSE 67; RESP 18; TEMP 37.2; O2SAT 99
--- NOTE | 2019-11-06 08:51 | PDOC.PAIN ---
Pain Clinic Procedure Note Procedure Note Procedure Note: PROCEDURE NOTE Transforaminal Epidural Steroid Injection with Fluoroscopic Guidance at right L5 TFESI Chief Complaint: right leg pain. Pre-operative diagnosis: lumbar radiculopathy Post-operative diagnosis: same as above Elaina Huddleston has [facility]bar Transforaminal Epidural Steroid Injection right L5 COMMENTS: Referring provider: Ms Lucio APRN Pre-procedure VAS: moderate level of pain to the right leg. Elaina Huddleston was greeted by the nurse who verified patients name and . Patient was then taken to the fluoroscopy suite. Elaina was interviewed and the medical record reviewed. There were no medical, pharmacologic, radiographic or other structural contraindications to attempting fluoroscopically guided transforaminal lumbar epidural steroid injection. The risks, benefits, and potential side effects were reviewed with the patient. Risk include, but not limited to, post dural puncture, headache, infection, nerve injury, allergic reaction, possible increase in symptoms over the ensuing 24 to 48 hours, and paralysis. The patient appeared to understand, questions were answered and the patient agreed to proceed. Once I obtained informed verbal consent, the printed consent form was signed by the patient and myself. Standard time-out procedure was performed. TECHNIQUE: After informed written consent was obtained the patient was placed in the prone position. The lumbar spine was prepped with chloraprep and draped. Sterile technique was observed during the entire procedure ( cap, gloves, and mask were worn). Vitals signs were monitored throughout the procedure. The RIGHT side was marked with a radioopaque marker. The skin and subcutaneous structures were anesthetized with lidocaine 1% to a total volume of 3 ML at each level. Under fluoroscopic guidance, in ipsilateral oblique view, co-axial approach, 22 gauge 5'' spinal needle(s) were advanced to the base of the L5 pedicle(s). The needle(s) were advanced to the superio-posterior aspect of the neural foramen under lateral view. Oblique and AP views were rechecked. Under AP view Omnipaque 240 1.5 cc's was injected while visualized with fluoroscopy. There was no evidence of intravascular uptake, the epidural space was delineated. 15 mg Dexamethasone was injected after negative aspiration, at each level, followed by lidocaine 1% 1.0-ML at each level. (48 cc of Omnipaque was wasted) Outcome: The patient tolerated the procedure well and had stable vital signs. The patient noted after getting up after the procedure that their RIGHT leg pain was at a 2 out of 10 level. Follow up plans and appointments were discussed with Elaina . The patient was observed in the pain clinic and then discharged after having met discharge criteria to the care of a electric train driver. The patient received written instructions as documented in nursing records. Disposition: Elaina was discharged from the procedure suite without new neurological complaints. Follow-up: Follow up with Ms Brett APRN on PRN basis. I personally performed the entire procedure. Jeromy Davies MD ABPN-subspecialty board certification in Pain Medicine Attending Physician-Pain Management
[2019-11-06 09:32] VITALS: BP 133/52; PULSE 60; RESP 17; O2SAT 98
[2019-11-06] MEDS: Dexamethasone Sod. Phos./Pres-Free 10 MG/ML VIAL IJ (09:35)
[2019-11-06] MEDS: Omnipaque 240 MG/ML 50 ML BTL IJ (09:35)
== END 2019-11-06 09:02 ==
PROVIDERS: PCP Student in an Organized Health Care Education/Training Program; Visit Provider Internal Medicine
DX: M54.16 Radiculopathy, lumbar region (principal)
CPT/HCPCS: 64483; 72100; 76000; Q9967

== ENCOUNTER → 2020-01-30 08:49 | Outpatient (BNVA) | payer MEDICARE, SELFPAY | PROVIDERS: PCP Student in an Organized Health Care Education/Training Program; Referring Provider Student in an Organized Health Care Education/Training Program; Visit Provider Internal Medicine Cardiovascular Disease | DX: I48.91 Unspecified atrial fibrillation (principal); Z45.018 Encounter for adjustment and management of other part of cardiac pacemaker; I10 Essential (primary) hypertension | CPT/HCPCS: 93280; 99212 ==

== ENCOUNTER 2020-02-01 02:40 | Outpatient (CLI) | payer MEDICARE, SELFPAY ==
[2020-02-01 15:21] LABS: HCT 37.3 % (36.0-46.0); HGB 12.6 g/dL (11.2-15.7); MCH 32.6 pg (27.0-33.0); MCHC 33.8 % (32.0-36.0); MCV 96.6 fL (80-95); Platelet Count 185 10^3/uL (130-400); RBC 3.86 10^6/uL (3.93-5.22); RDW 12.8 % (11.7-14.6); RDW-SD 45.3 fL; WBC 5.15 10^3/uL (4.4-10.8)
[2020-02-01 16:19] LABS: Anion Gap 7.2 mmol/L (3-11); BUN 11 mg/dL (7-18); CO2 29.8 mmol/L (21.0-32.0); CREATININE 0.78 mg/dL (0.55-1.02); Calcium 8.5 mg/dL (8.5-10.1); Calculated LDL 136 mg/dL (<100); Chloride 105 mmol/L (98-107); Cholesterol 261 mg/dL (<200); Glucose 190 mg/dL (74-106); HDL Cholesterol 101 mg/dL (40-60); Sodium 142 mmol/L (136-145); TSH (W/Ref FT4) 2.75 uIU/mL (0.36-3.74); Triglyceride 120 mg/dL (<150)
== END 2020-02-01 03:00 ==
PROVIDERS: PCP Student in an Organized Health Care Education/Training Program; Visit Provider Student in an Organized Health Care Education/Training Program
DX: R00.1 Bradycardia, unspecified (principal); I10 Essential (primary) hypertension; R79.89 Other specified abnormal findings of blood chemistry
CPT/HCPCS: 36415; 80048; 80061; 85027; 84443

== ENCOUNTER 2020-03-14 04:03 | Outpatient (CLI) | payer MEDICARE, SELFPAY ==
--- NOTE | 2020-03-14 12:09 | DI.MAMMO_ITS ---
EXAM: MAMMO SCREENING CLINICAL HISTORY: screening,Z12.39 TECHNIQUE: Bilateral full field digital CC and MLO mammographic images were obtained with 3D tomosyn thesis and utilizing computer aided detection (CAD). COMPARISON: Available for comparison. FINDINGS: Masses/Architectural Distortion: There is a new asymmetric density in the posterior lateral right karen ast seen on the CC view. Microcalcifications: No suspicious pleomorphic-type are seen. Skin Thickening/Nipple Retraction: None. IMPRESSION: 1. New asymmetric density in the posterolateral right breast on the CC view. 2. This area should be further evaluated with a spot compression view. Ultrasound may be indicated a t that time. BI-RADS Category 0 - Assessment Incomplete: Need additional imaging evaluation Breast Density - Category C - Heterogeneously dense The mammogram demonstrates the patient's breast tissue is dense. Dense breast tissue is very common a nd is not abnormal but dense breast tissue can make it harder to find cancer on a mammogram. Also, de nse breast tissue may increase their breast cancer risk. This information about the result of the [facility] mogram report was provided to the patient to raise their awareness. Use this report when you speak wi th the patient about their risks for breast cancer, which includes their family history. At that time , you may recommend for more screening tests (Ultrasound or MRI) as they might be useful based on the ir risk. A negative radiographic report should not delay biopsy if a dominant or clinically suspicious mass is present. Up to ten percent of cancers are not identified on mammography. A negative report may reinforce clinical impression. Adenosis and dense breasts may obscure an underlying neoplasm. False positive reports average 6 to 10%. Patient will receive a letter notifying them of these results.
== END 2020-03-14 04:23 ==
PROVIDERS: PCP Student in an Organized Health Care Education/Training Program; Visit Provider Student in an Organized Health Care Education/Training Program
DX: Z12.31 Encounter for screening mammogram for malignant neoplasm of breast (principal); R92.8 Other abnormal and inconclusive findings on diagnostic imaging of breast
CPT/HCPCS: 77063; 77067

== ENCOUNTER 2020-03-24 01:22 | Outpatient (CLI) | payer MEDICARE, SELFPAY ==
--- NOTE | 2020-03-24 | DI.US_ITS ---
EXAM: MG MAMMO SCREEN CALL BACK UNI AND US BREAST RT LIMITED CLINICAL HISTORY: F/U MAMMO, NEW ASYMMETRIC DENSITY POST LAT RT BREAST ON CC VIEW. TECHNIQUE: 3D spot compression view of the area of concern in the posterior lateral right breast. COMPARISON: Prior mammograms. FINDINGS: This additional 3D view of the previously described area renders this area less concerning. In addit ion, today's complete right breast ultrasound revealed no evidence of solid or significant cystic les ions in all 4 quadrants. I note that there is a group of microcalcifications towards the upper outer quadrant of the right karen ast, which is more evident than on prior studies. Presently it has benign appearance but recommend 6- month followup. IMPRESSION: 1. Additional spot 3D spot view is less concerning. No radiographic evidence of malignancy at this l ocation in the right breast. 2. Right breast ultrasound is negative. 3. Appropriate followup is repeat right breast mammogram in 6 months to restudy the group of microcal cifications in the upper-outer quadrant of the right breast. BI-RADS Category 3 - 6 month - Probably Benign Finding: Recommend follow-up mammography in 6 months Breast Density - Category B - Scattered areas of fibroglandular density Breast density Category C or D implies that the patient has dense breast tissue. Dense breast tissue can make it harder to find cancer on a mammogram. Dense breast tissue is also associated with an incr eased risk of breast cancer. This information about the result of the mammogram report was provided to the patient to raise their awareness. Use this report when you speak with the patient about their risks for breast cancer, which includes their family history. At that time, you may recommend additional screening tests (Ultrasoun d or MRI) as these tests may add significant information. A negative radiographic report should not delay biopsy if a dominant or clinically suspicious mass is present. Up to ten percent of cancers are not identified on mammography. A negative report may reinforce clinical impression. Adenosis and dense breasts may obscure an underlying neoplasm. False positive reports average 6 to 10%. Patient will receive a letter notifying them of these results.
== END 2020-03-24 01:42 ==
PROVIDERS: PCP Student in an Organized Health Care Education/Training Program; Visit Provider Student in an Organized Health Care Education/Training Program
DX: R92.8 Other abnormal and inconclusive findings on diagnostic imaging of breast (principal); R92.0 Mammographic microcalcification found on diagnostic imaging of breast
CPT/HCPCS: 76642; 77063; 77067

== ENCOUNTER → 2020-08-13 09:48 | Outpatient (BNVA) | payer MEDICARE, SELFPAY | PROVIDERS: PCP Student in an Organized Health Care Education/Training Program; Referring Provider Student in an Organized Health Care Education/Training Program; Visit Provider Physician Assistant | DX: I48.0 Paroxysmal atrial fibrillation (principal); I44.30 Unspecified atrioventricular block; Z45.018 Encounter for adjustment and management of other part of cardiac pacemaker | CPT/HCPCS: 93280; 99212 ==

== ENCOUNTER 2020-08-31 06:23 | Emergency (ER) | payer MEDICARE, SELFPAY ==
--- NOTE | 2020-08-31 06:25 | W.ED.GENAD ---
Discharge Plan Disposition Patient Disposition: HOME Condition: Good Discharge Details Clinical Impression: Muscle spasm of left shoulder area Primary Care Provider: Vicenta Freed ED Provider: Jonah Garcia [place] Meds and New Rx's Prescriptions: New methocarbamol 500 mg tablet 500 mg PO TID PRN (Reason: spasm) Qty: 15 RF: 0 Continued levothyroxine 112 mcg tablet 112 mcg PO DAILY Qty: 90 RF: 3 omeprazole 40 mg capsule,delayed release(DR/EC) 40 mg PO DAILY Qty: 90 RF: 3 psyllium husk [Metamucil] 0.4 gram capsule 1.2 gm PO BID RF: 0 glucosam-chond or-[id number]-[id number] ac 1 EACH capsule 1 ea PO DAILY RF: 0 Flovent HFA 110 mcg/actuation HFA aerosol inhaler 2 puff Inhalation BID Qty: 3 RF: 3 flecainide 150 mg tablet 150 mg PO BID Qty: 180 RF: 3 Eliquis 5 mg tablet 5 mg PO BID Qty: 180 RF: 6 albuterol sulfate [ProAir HFA] 90 mcg/actuation HFA aerosol inhaler 2 puff Inhalation Q4H PRN PRN (Reason: shortness of breath or wheezing) Qty: 3 RF: 1 metoprolol tartrate 25 mg tablet 12.5 mg PO BID Qty: 90 RF: 3 multivitamin 1 EACH capsule 1 ea PO DAILY RF: 0 acetaminophen [Mapap Extra Strength] 500 MG tablet 1,000 mg PO TID PRN PRNQty: 120 RF: 0 Lactobacillus acidophilus Tablet,Chewable 2 tab PO DAILY RF: 0 Discharge Instructions Instructions: Muscle Spasm (ED) Additional Instructions: This appears to be related to muscle spasm involving the trapezius muscle. We will try using heat and gentle massage. Continue your Tylenol. Start methocarbamol as directed to see if this helps relax the muscles. Follow-up with primary care next week if not improving. Return to ED if you develop chest pain, shortness of breath, numbness, weakness, other concerns. Referrals: Vicenta Freed DO [Primary Care Provider] - Medical Decision Making Despite there being no known injury this is likely muscle spasm involving the left trapezius muscle. Less likely radicular pain as this pain is brought on by certain range of motion. No chest pain or pressure and no pleuritic pain or shortness of breath. Given history and exam this does not appear to be cardiac or pulmonary in nature. Would like to use lidocaine patch but she is on flecainide and this is too much of a risk. Cannot use nonsteroidals because she is on blood thinning. We will continue Tylenol. We will start Robaxin. Moist heat and gentle massage recommended. Follow-up primary care later this week if no improvement. Return to ED for chest pain, shortness of breath, numbness, weakness. HPI General Mode of arrival: ambulatory. Date/Time Provider Initiated Documentation: 08/31/20 06:25. Limitations to Documentation: no limitations. Information obtained by: patient and RN notes reviewed. HPI Narrative: Patient presents to ED with left shoulder pain that started about 1 week ago. Instead of getting better seems to be getting worse. It does down the back of the left side of her neck into the top of her shoulder and somewhat into the back of the arm. It hurts to turn or flex extend her neck. It hurts in the posterior shoulder when she is trying to use her left upper extremity. She does not have any numbness or weakness in the arm. She has no chest pain or pressure. She has no pleuritic pain or shortness of breath. She is on flecainide and metoprolol as well as Eliquis. She has been using Tylenol, miracle rub, heat/cold. This morning seem to be much worse. She came into ED to have it evaluated. Related Data Home Medications Medication Instructions Recorded Confirmed glucosam-chond [id number] ac 1 ea PO DAILY NS 07/03/12 08/31/20 multivitamin 1 ea PO DAILY 11/05/12 08/31/20 acetaminophen [Mapap Extra 1,000 mg PO TID PRN PRN #120 tab 12/03/16 08/31/20 Strength] psyllium husk 0.4 gram capsule 1.2 gm PO BID cap 03/01/19 08/31/20 Lactobacillus acidophilus 2 tab PO DAILY 03/26/19 08/31/20 fluticasone propionate 110 2 puff INHALATION BID #3 inh 01/18/20 08/31/20 mcg/actuation HFA aerosol inhaler levothyroxine 112 mcg tablet 112 mcg PO DAILY #90 tab-cap 02/07/20 08/31/20 flecainide 150 mg tablet 150 mg PO BID #180 tab-cap 03/18/20 08/31/20 apixaban 5 mg tablet 5 mg PO BID #180 tab-cap 05/26/20 08/31/20 albuterol sulfate 90 mcg/actuation 2 puff INHALATION Q4H PRN PRN #3 06/11/20 08/31/20 aerosol inhaler inhaler metoprolol tartrate 25 mg tablet 12.5 mg PO BID #90 tab 07/23/20 08/31/20 omeprazole 40 mg capsule,delayed 40 mg PO DAILY #90 tab-cap 08/07/20 08/31/20 release methocarbamol 500 mg PO TID PRN #15 tab 08/31/20 Previous Rx's Medication Instructions Recorded acetaminophen [Mapap Extra 1,000 mg PO TID PRN PRN #120 tab 12/03/16 Strength] fluticasone propionate 110 2 puff INHALATION BID #3 inh 01/18/20 mcg/actuation HFA aerosol inhaler levothyroxine 112 mcg tablet 112 mcg PO DAILY #90 tab-cap 02/07/20 flecainide 150 mg tablet 150 mg PO BID #180 tab-cap 03/18/20 apixaban 5 mg tablet 5 mg PO BID #180 tab-cap 05/26/20 albuterol sulfate 90 mcg/actuation 2 puff INHALATION Q4H PRN PRN #3 06/11/20 aerosol inhaler inhaler metoprolol tartrate 25 mg tablet 12.5 mg PO BID #90 tab 07/23/20 omeprazole 40 mg capsule,delayed 40 mg PO DAILY #90 tab-cap 08/07/20 release methocarbamol 500 mg PO TID PRN #15 tab 08/31/20 Allergies Allergy/AdvReac Type Severity Reaction Status Date / Time ranitidine Allergy Severe WHEEZING Verified 08/31/20 06:32 cefadroxil Allergy Mild Verified 08/31/20 06:32 ciprofloxacin AdvReac Intermediate WEAKNESS Verified 08/31/20 06:32 pneumococcal 13-valent AdvReac Intermediate temp and Verified 08/31/20 06:32 conjugate to body aches [From Prevnar 13 (PF)] sucralfate AdvReac Intermediate N/V Verified 08/31/20 06:32 General DEXTER: 3 Review of Systems Narrative: As documented in HPI otherwise negative as below. Const: no fever, chills, weakness Resp: no cough, SOB, pleuritic pain CV: no CP, diaphoresis, edema, syncope Neuro: no headache, numbness, focal weakness, confusion PFSH Medical History Asthma Atrial fibrillation Deformity of toenail Essential hypertension GERD without esophagitis High risk medications (not anticoagulants) long-term use Flecainide - started by Dr. Douglass Hypothyroidism Sensorineural hearing loss of both ears Surgical History Cardiac Cath, 2008 Cholecystectomy Colonoscopy - IV Sedation (03/17/16) EGD - MAC (06/29/17) Extraction of cataract B/L Hernia, hiatal (banding) Hyseterectomy, Total Laparoscopic w/ BSO (07/01/16) +Endometrial cancer Pacemaker (12/04/13) Replacement of total knee joint (12/03/16) R knee Dr Del Cid sentinal lymph node dissection (07/01/16) NEG for mets from endometrium upper GI Series (10/05/17) for sx of epigastric dysphagia,GERD. Done by Dr. Duncan. Impression: Moderate sized Hiatal Hernia. Marked gastroesophageal reflux. Family History Mother , old age at age 98. No problems noted. Father , Heart disease at age 64. Heart disease [place] Sister , Colon [place] Personal history of malignant neoplasm Sister , Heart problems at age 72. Personal history of malignant neoplasm Breast cancer, dx'ed in her 60s Heart disease Sister Hypertensive disorder, systemic arterial Diabetes Sister Diabetes Sister Hypertensive disorder, systemic arterial Brother , Parkinson's at age 75. Personal history of malignant neoplasm Brother Parkinson's disease Brother , Heart condition at age 62. Hypertensive disorder, systemic arterial Diabetes Brother Hypertensive disorder, systemic arterial Diabetes Social History Smoking/Tobacco Use Status: Never Smoking risk assessment performed?: Yes Alcohol Intake: never Drug use: Never Substance use type: does not use Adopted: No Foster care: No Housing: apartment Number of Children: 0 number of grandchildren: 0 Communication Needs: Corrective Lenses current occupation: retired from [employer] Pets and animals: No Current gender identity: female What is your relationship status?: Panel score (0-1 are the most socially isolated patients): 0 Seatbelt use: always Working smoke detector in home: Yes Fire extinguisher in home: Yes Carbon monox detector in home: Yes Firearms in home: No Do you feel safe at home: Yes Do you feel safe in your relationship?: Yes Exam Narrative Exam Narrative: Const: Elderly female in NAD. HEENT: NC/AT. Normal facial exam. Neck: Trachea midline. Some tenderness along the left trapezius extending from the base of skull down to the top of posterior shoulder. Range of motion intact though with discomfort with turning head left or right. Lungs: Normal respiratory effort. Lungs are clear. Cor: RRR without murmur/gallop. Good radial pulses. Neuro: A+O x 3. Normal speech, mentation, gait. Cranial nerves II - XII grossly intact. No gross motor or sensory deficit. Left upper extremity with 5 out of 5 strength and normal sensation. Ext: Pain posterior left shoulder with range of motion involving left upper extremity. Skin: Warm and dry without rash.
[2020-08-31 06:27] VITALS: BP 160/82; PULSE 87; RESP 16; TEMP 36.3; O2SAT 94
[2020-08-31] MEDS: Methocarbamol 500 MG TAB PO (07:07)
[2020-08-31 07:22] VITALS: BP 134/68; PULSE 65; RESP 16; TEMP 36.7; O2SAT 98
== END 2020-08-31 07:23 | disposition home or self-care (01) ==
PROVIDERS: Emergency Provider Emergency Medicine; PCP Student in an Organized Health Care Education/Training Program
DX: M62.838 Other muscle spasm (principal)
CPT/HCPCS: 99283

== ENCOUNTER 2020-09-13 19:20 | Emergency (ER) | payer MEDICARE, SELFPAY ==
[2020-09-13] VITALS (17 sets, daily range): BP systolic 114–143; BP diastolic 52–106; PULSE 64–89; RESP 10–21; TEMP 36.3–36.9; O2SAT 94–100
--- NOTE | 2020-09-13 19:15 | RT.EKG_ITS ---
APPROVED REPORT Exam: Resting ECG Reason for Exam: chest pain Patient Location: E HR:78 bpm ECG Measurements Heart Rate 78 AXIS MS 283 P 16 QRSd 123 QRS 49 QT 406 T -19 QTc 463 Conclusion Sinus rhythm...normal P axis, V-rate 60- 99 Prolonged MS interval...MS >220, V-rate 50- 90 Nonspecific intraventricular conduction delay...QRSd >115mS, not LBBB/RBBB Nonspecific T abnormalities, anterior leads...T <-0.10mV, V2-V4 Physician: Rate of 78, sinus, less than [address] depression in the V3. T wave inversion in III, V2 th rough V5. Prolonged MS 283. QTc 463. Previous ekg from 2014 shows similiar inversions and depressions
--- NOTE | 2020-09-13 19:37 | ED.GENADUL_ITS ---
Discharge Plan Disposition Patient Disposition: HOME Condition: Stable Discharge Details Clinical Impression: Chest pain Primary Care Provider: Vicenta Freed ED Provider: Gee Vazquez Home Meds and New Rx's Prescriptions: Continued levothyroxine 112 mcg tablet 112 mcg PO DAILY Qty: 90 RF: 3 omeprazole 40 mg capsule,delayed release(DR/EC) 40 mg PO DAILY Qty: 90 RF: 3 psyllium husk [Metamucil] 0.4 gram capsule 1.2 gm PO BID RF: 0 glucosam-chond xg-arrpgv-dk ac 1 EACH capsule 1 ea PO DAILY RF: 0 Flovent HFA 110 mcg/actuation HFA aerosol inhaler 2 puff Inhalation BID Qty: 3 RF: 3 flecainide 150 mg tablet 150 mg PO BID Qty: 180 RF: 3 Eliquis 5 mg tablet 5 mg PO BID Qty: 180 RF: 6 albuterol sulfate [ProAir HFA] 90 mcg/actuation HFA aerosol inhaler 2 puff Inhalation Q4H PRN PRN (Reason: shortness of breath or wheezing) Qty: 3 RF: 1 metoprolol tartrate 25 mg tablet 12.5 mg PO BID Qty: 90 RF: 3 multivitamin 1 EACH capsule 1 ea PO DAILY RF: 0 acetaminophen [Mapap Extra Strength] 500 MG tablet 1,000 mg PO TID PRN PRNQty: 120 RF: 0 Lactobacillus acidophilus Tablet,Chewable 2 tab PO DAILY RF: 0 Discharge Instructions Instructions: Chest Pain (ED) Additional Instructions: At this time your work-up shows that you are not having a heart attack. The reproducible pain in your chest is likely from a muscle spasm or irritation from your pacemaker but there is no evidence of infection or new concerning abnormality at this time. Please follow-up closely with your primary care provider. If you notice any worsening of your symptoms, or any new symptoms such as vomiting, diarrhea, fever, chills, shortness of breath, chest pain, numbness, weakness, or fainting , please return immediately to the emergency department for reevaluation. Please follow up with your primary care provider as soon as possible for reassessment and reevaluation. As always, it was a pleasure participating in your medical care today. Referrals: Vicenta Freed DO [Primary Care Provider] - Discharge Data Discharge Date/Time-TO BE ENTERED AT DEPARTURE: 09/14/20 00:25 Medical Decision Making <Asuncion Cates DO - Last Filed: 09/14/20 13:10> 80-year-old female with a history of obesity, pacemaker, hypothyroidism, hypertension, hyperlipidemia, atrial fibrillation, GERD presents for 2 episodes of left-sided chest pain since this afternoon. Given 4 baby aspirin and nitro in route and pain now improved. EKG on arrival notes a rate of 78, sinus, prolonged MN with T wave inversion in lead III and anterior leads. No STEMI. BP hypertensive per EMS 180/110s. Blood pressure now 120/52. Remainder vitals within normal limits. She appears afebrile and nontoxic. Her left anterior chest pain is reproducible and tender to palpation. Her pain appears likely musculoskeletal, possibly radiating from her recent left shoulder trapezius muscle spasm, however considering her age and improvement with nitro, will obtain a cardiac work-up, CT chest and plan for repeat troponin and EKG. Case endorsed to Dr. Vazquez to follow-up on labs and imaging and final disposition. ECG Data Attestation: I personally reviewed and interpreted this ECG (s) as follows: Interpretation: Rate of 78, sinus, less than [address] depression in the V3. T wave inversion in III, V2 through V5. Prolonged MN 283. QTc 463. <Gee Vazquez DO - Last Filed: 09/13/20 23:47> Patient was signed out to me by my colleague Dr. Asuncion Cates. Please refer to her HPI, physical exam assessment and plan. Patient was seen and assessed by myself. Patient describes a sharp intermittent pain in her left anterior chest. Began earlier this evening, and is currently completely gone aside for when you palpate the left anterior chest wall just below her pacemaker. This brings back the pain in its original state. Is been goes away immediately after he stopped pressing. She denies any pleuritic chest pain, she denies any crushing sensation or heaviness on her chest. She denies any tearing or ripping sensation. Physical exam shows no signs of shingles, and is otherwise unremark able. Patient has had a unremarkable and reassuring work-up. No acute process per virtual radiology on CTA of the chest. Laboratory work-up shows no elevated white count, elevated troponin or other abnormality. Serial troponins are normal. Serial EKGs are unchanged. No other acute process. On reassessment the patient remains notably stable. Symptoms at this time are clinically inconsistent with STEMI or ACS as the pain is reproducible, and serial troponins and EKG are unremarkable especially in the setting of an absence of previous ischemic heart disease. Patient will be discharged home. I did discuss observation versus discharge and the patient states that she feels very comfortable going home and would like to go home. Discussed red flags which to return. I have extensively reviewed the treatment plan and discharge instructions with the patient. I have addressed all patient concerns at this time. The patient was made aware of what symptoms to monitor for that would warrant a return to the emergency department. Discussed the plan with the patient, they demonstrate verbal understanding and agreement with our assessment and plan at this time. The documentation in this chart was dictated using [email or web address] dictation software. Please excuse any dictation errors. FINDINGS: Tubes, catheters and devices: Mild cardiomegaly.Cardiac pacemaker without gross hardware complication or change. No gross fluid collections are seen around the pacer unit. Pulmonary arteries: The pulmonary arteries enhance appropriately with no evidence of pulmonary embolism. Aorta: The aorta enhances appropriately without evidence of dissection or aneurysm. No mediastinal hematoma. Moderate aortic ectasia/tortuosity with mild calcific atherosclerosis. Thyroid: The visualized thyroid gland demonstrates no gross abnormality. Lungs: No acute tracheobronchial abnormalities. No gross pulmonary infiltrates or edema pattern. Mild atelectasis in the lung bases. No pulmonary mass lesions are identified. Pleural spaces: No pleural effusion. No pneumothorax. Heart: No pericardial effusion. Mediastinal space: Moderate-sized hiatal hernia. The mid and distal stomach are grossly normal. Small peripelvic cysts in the left renal hilum unchanged. These do not require further evaluation. Lymph nodes: No supraclavicular or axillary adenopathy. No mediastinal or hilar adenopathy. Gallbladder and bile ducts: Prior cholecystectomy with expected mild postoperative dilatation of the common bile duct. This is unchanged. Pancreas: Mild pancreatic atrophy without acute abnormality. No pancreatic ductal dilatation. Bones/joints: No acute osseous abnormalities are identified. Osteopenia. Moderate rightward convexity lumbar scoliosis partially visualized. Soft tissues: The soft tissues of the chest wall demonstrate no acute abnormality. IMPRESSION: 1. No evidence of pulmonary embolism or aortic disse ction. 2. No acute thoracic process. 3. Mild cardiomegaly and cardiac pacemaker without gross hardware complication or change. There are no fluid collections or inflammatory changes seen around the pacer unit although local streak artifact limits the assessment of this somewhat. 4. Moderate-sized hiatal hernia. 5. Additional non-emergent findings detailed above. Thank you for allowing us to participate in the care of your patient. Dictated and Authenticated by: Matheus Ghosh MD 09/13/2020 9:25 PM Eastern Time ([place] & [place]) EKG HPI <Asuncion Cates DO - Last Filed: 09/14/20 13:10> General Mode of arrival: EMS . Date/Time Provider Initiated Documentation: 09/13/20 19:29 . Limitations to Documentation: no limitations . Information obtained by: patient . HPI Narrative: Patient is an 80-year-old female with a history of obesity, hypertension, hyperlipidemia, pacemaker, atrial fibrillation on Eliquis presents to the ED with a complaint of 2 episodes of chest pain since this afternoon. Patient states the first episode occurred while she was sitting at home, last approximately 30 minutes and then resolved on its own. She states the second episode also started at rest while she was sitting after her shower at home and states the pain is left-sided, sharp without radiation. She was given 4 aspirin in route per EMS as well as nitro and states the pain is now improved and currently 4/10. She admits to some dizziness consistent with a spinning sensation earlier today but denies any dizziness at present. She denies any fever, cough, nausea, vomiting. Of note, patient was seen here earlier this month for muscle spasm in her left shoulder which was treated with methocarbamol. She states she is unsure if the pain is radiating from this left shoulder muscle strain but states the pain in her chest is worse with palpation. Related Data Home Medications Medication Instructions Recorded Confirmed glucosam-chond ad-aktewn-hp ac 1 ea PO DAILY NS 07/03/12 09/13/20 multivitamin 1 ea PO DAILY 11/05/12 09/13/20 acetaminophen [Mapap Extra 1,000 mg PO TID PRN PRN #120 tab 12/03/16 09/13/20 Strength] psyllium husk 0.4 gram capsule 1.2 gm PO BID cap 03/01/19 09/13/20 Lactobacillus acidophilus 2 tab PO DAILY 03/26/19 09/13/20 fluticasone propionate 110 2 puff INHALATION BID #3 inh 01/18/20 09/13/20 mcg/actuation HFA aerosol inhaler levothyroxine 112 mcg tablet 112 mcg PO DAILY #90 tab-cap 02/07/20 09/13/20 flecainide 150 mg tablet 150 mg PO BID #180 tab-cap 03/18/20 09/13/20 apixaban 5 mg tablet 5 mg PO BID #180 tab-cap 05/26/20 09/13/20 albuterol sulfate 90 mcg/actuation 2 puff INHALATION Q4H PRN PRN #3 06/11/20 09/13/20 aerosol inhaler inhaler metoprolol tartrate 25 mg tablet 12.5 mg PO BID #90 tab 07/23/20 09/13/20 omeprazole 40 mg capsule,delayed 40 mg PO DAILY #90 tab-cap 08/07/20 09/13/20 release Previous Rx's Medication Instructions Recorded acetaminophen [Mapap Extra 1,000 mg PO TID PRN PRN #120 tab 12/03/16 Strength] fluticasone propionate 110 2 puff INHALATION BID #3 inh 01/18/20 mcg/actuation HFA aerosol inhaler levothyroxine 112 mcg tablet 112 mcg PO DAILY #90 tab-cap 02/07/20 flecainide 150 mg tablet 150 mg PO BID #180 tab-cap 03/18/20 apixaban 5 mg tablet 5 mg PO BID #180 tab-cap 05/26/20 albuterol sulfate 90 mcg/actuation 2 puff INHALATION Q4H PRN PRN #3 06/11/20 aerosol inhaler inhaler metoprolol tartrate 25 mg tablet 12.5 mg PO BID #90 tab 07/23/20 omeprazole 40 mg capsule,delayed 40 mg PO DAILY #90 tab-cap 08/07/20 release Allergies Allergy/AdvReac Type Severity Reaction Status Date / Time ranitidine Allergy Severe WHEEZING Verified 09/13/20 19:36 cefadroxil Allergy Mild Verified 09/13/20 19:36 ciprofloxacin AdvReac Intermediate WEAKNESS Verified 09/13/20 19:36 pneumococcal 13-valent AdvReac Intermediate temp and Verified 09/13/20 19:36 conjugate to body aches [From Prevnar 13 (PF)] sucralfate AdvReac Intermediate N/V Verified 09/13/20 19:36 General Stated Complaint: Chest Pain DEXTER: 2 Review of Systems <Asuncion Cates DO - Last Filed: 09/14/20 13:10> All systems reviewed & are unremarkable except as noted in HPI and below Constitutional Constitutional: Reports as per HPI, Denies chills and Denies fever(s) Eyes Eyes: Denies blurry vision ENT Ears, Nose, Mouth, and Throat: Denies dizziness, Denies sore throat and Denies throat swelling Cardiovascular Cardiovascular: Reports chest pain and Denies dyspnea Respiratory Respiratory: Denies cough and Denies dyspnea Gastrointestinal Gastrointestinal: Denies abdominal pain, Denies diarrhea and Denies vomiting Genitourinary Genitourinary: Denies hematuria and Denies dysuria Musculoskeletal Musculoskeletal: Denies back pain and Denies numbness Integumentary/Breasts Skin/Breast: Denies lesions and Denies rash Neurologic Neurologic: Denies dizziness, Denies localized weakness and Denies numbness Allergic/Immunologic Allergic/Immunologic: Denies throat swelling PFSH <Asuncion Cates DO - Last Filed: 09/14/20 13:10> Medical History Asthma Atrial fibrillation Deformity of toenail Essential hypertension GERD without esophagitis High risk medications (not anticoagulants) long-term use Flecainide - started by Dr. Douglass Hypothyroidism Sensorineural hearing loss of both ears Surgical History Cardiac Cath, 2008 Cholecystectomy Colonoscopy - IV Sedation (03/17/16) EGD - MAC (06/29/17) Extraction of cataract B/L Hernia, hiatal (banding) Hyseterectomy, Total Laparoscopic w/ BSO (07/01/16) +Endometrial cancer Pacemaker (12/04/13) Replacement of total knee joint (12/03/16) R knee Dr Del Cid sentinal lymph node dissection (07/01/16) NEG for mets from endometrium upper GI Series (10/05/17) for sx of epigastric dysphagia,GERD. Done by Dr. Duncan. Impression: Moderate sized Hiatal Hernia. Marked gastroesophageal reflux. Family History Mother , old age at age 98. No problems noted. Father , Heart disease at age 64. Heart disease [place] Sister , Colon [place] Personal history of malignant neoplasm Sister , Heart problems at age 72. Personal history of malignant neoplasm Breast cancer, dx'ed in her 60s Heart disease Sister Hypertensive disorder, systemic arterial Diabetes Sister Diabetes Sister Hypertensive disorder, systemic arterial Brother , Parkinson's at age 75. Personal history of malignant neoplasm Brother Parkinson's disease Brother , Heart condition at age 62. Hypertensive disorder, systemic arterial Diabetes Brother Hypertensive disorder, systemic arterial Diabetes Social History Smoking/Tobacco Use Status: Never Smoking risk assessment performed?: Yes Alcohol Intake: never Drug use: Never Substance use type: does not use Adopted: No Foster care: No Housing: apartment Number of Children: 0 number of grandchildren: 0 Communication Needs: Corrective Lenses current occupation: retired from [employer] Pets and animals: No Current gender identity: female What is your relationship status?: Panel score (0-1 are the most socially isolated patients): 0 Seatbelt use: always Working smoke detector in home: Yes Fire extinguisher in home: Yes Carbon monox detector in home: Yes Firearms in home: No Do you feel safe at home: Yes Do you feel safe in your relationship?: Yes Exam <Asuncion Cates DO - Last Filed: 09/14/20 13:10> Const General: cooperative and no acute distress [facility] Head: normal to inspection Face and sinus: normal facial exam Eyes General: appearance normal, both eyes and all related structures EOM: EOM intact bilaterally Neck Neck: normal visual inspection and No submandibular swelling Lymphatic: no lymphadenopathy noted Chest Chest: normal inspection of the chest Chest/axillae images: 1. Localized tenderness to palpation. No crepitus, erythema, edema, rash, ecchymosis. Resp Effort & Inspection: normal respiratory effort and able to speak in complete sentences Auscultation: clear to auscultation bilaterally Cardio Rate: regular rate Rhythm: regular rhythm GI Inspection: normal to inspection Palpation: soft, not firm, not rigid and nontender Auscultation: normal bowel sounds Skin General skin exam: no rashes or lesions noted Neuro General: patient alert, patient awake and patient oriented x3 Cognition: normal cognition Speech: speech normal Motor: muscle tone normal throughout Sensory Exam: no sensory deficits noted Extrem General: normal to inspection, full ROM, capillary refill normal, no calf tenderness bilaterally and no edema Psych Appearance: grossly normal Mental Status: mental status grossly normal Speech and Movement: speech and movement normal Affect: normal affect Course <Asuncion Cates DO - Last Filed: 09/14/20 13:10> Vital Signs Vital signs: Vital Signs Temperature 98.4 F 09/13/20 19:31 Pulse 76 09/13/20 19:31 Respiratory Rate 20 09/13/20 19:31 Blood Pressure 128/52 L 09/13/20 19:31 Pulse Oximetry 94 09/13/20 19:31 Temperature 98.4 F 09/13/20 19:31 Temperature Source Skin 09/13/20 19:31 Pulse 76 09/13/20 19:31 Respiratory Rate 20 09/13/20 19:31 Blood Pressure 128/52 L 09/13/20 19:31 Blood Pressure Position Sitting 09/13/20 19:31 Pulse Oximetry 94 09/13/20 19:31 Oxygen Delivery Method Room Air 09/13/20 19:31 Oxygen Flow Rate 0 09/13/20 19:31 Pain Level 3 09/13/20 19:31 Sign Out <Asuncion Cates DO - Last Filed: 09/14/20 13:10> Sign Out Data: Sign Out Comment: Chest pain work-up. Her pain appears reproducible but was improved with nitro. Considering her age and comorbidities, may likely need admission for ACS rule out. Follow-up labs and imaging and final disposition. Plan for repeat troponin and EKG. Last updated by Asuncion Cates DO at 09/13/20 20:00
--- NOTE | 2020-09-13 19:45 | DI.CT_ITS ---
Exam(s) CT THORAX CTA EXAM: CT THORAX CTA CLINICAL HISTORY: L sided chest pain, dizzy. TECHNIQUE: Imaging Protocol: Axial CT angiography was performed with multi-slice acquisition and mu lti-planar and/or 3D reconstructions. CONTRAST MATERIAL: Intravenous: Omnipaque 350 Contrast volume:structured data in ml COMPARISON: CT CT ABDOMEN PELVIS W from 09/22/2018 FINDINGS: CT angiography of the chest was performed with intravenous infusion of 75 cc of Omnipaque 350. There is a transvenous cardiac pacemaker in position. No gross fluid collection associated with the pacer site. Pacer wires grossly intact as visualized although there is some artifact which obscures evaluation. The lungs are clear. No pleural effusion. Tracheobronchial tree appears intact. No evidence of pulmonary embolic disease. Thoracic aorta is of normal diameter, no thoracic aortic an eurysm or dissection, major branch vessels appear intact. No mediastinal or hilar adenopathy. Images obtained through the upper abdomen show unremarkable appearance of the visualized portions of the liver, spleen, pancreas, adrenals, and kidneys. Note is made of apparent left parapelvic renal c ysts. Note is made of a prior cholecystectomy. IMPRESSION: Negative CT angiogram of the chest. No evidence of pulmonary embolic disease. RADIATION DOSE DELIVERED: 538.06mGy.cm Total DLP 538.06mGy.cm Total DLP DATA REPOSITORY: All CT scans at this facility are submitted to the National Radiology Data Registry (NRDR) Dose Index Registry (DIR) with the [employer] (ACR). RADIATION OPTIMIZATION: All CT scans at this facility use at least one of these dose optimization te chniques: automated exposure control; mA and/or kV adjustment per patient size (includes targeted exa ms where dose is matched to clinical indication); or iterative reconstruction.
[2020-09-13 19:56] LABS: Abs Immature Grans 0.02 10^3/uL (0.0-0.06); Absolute Basophil Count 0.02 10^3/uL (0.0-0.2); Absolute Eosinophil Count 0.12 10^3/uL (0.0-0.7); Absolute Neutrophil Count 3.18 10^3/uL (1.2-6.7); Basophils % 0.3; HCT 39.4 % (36.0-46.0); HGB 13.1 g/dL (11.2-15.7); Immature Grans % 0.3; Lymphocytes % 33.7; MCH 32.1 pg (27.0-33.0); MCHC 33.2 % (32.0-36.0); MCV 96.6 fL (80-95); MPV 11.5 fL (8.0-11.0); Monocytes % 10.1; Neutrophils % 53.6; Nucleated RBC 0 %; Platelet Count 192 10^3/uL (130-400); RBC 4.08 10^6/uL (3.93-5.22); RDW 13.2 % (11.7-14.6); RDW-SD 46.5 fL; WBC 5.94 10^3/uL (4.4-10.8)
[2020-09-13 20:23] LABS: PTT Activated 21.9 sec (21.0-27.5); Prothrombin Time 10.5 sec (9.3-11.0)
[2020-09-13 20:29] LABS: ALT 22 U/L (14-59); AST 15 U/L (15-37); Albumin 3.7 g/dL (3.4-5.0); Alkaline Phosphatase 56 U/L (46-116); Anion Gap 8.6 mmol/L (3-11); BUN 16 mg/dL (7-18); Bilirubin, Total 0.4 mg/dL (0.2-1.0); CO2 30.4 mmol/L (21.0-32.0); CREATININE 0.8 mg/dL (0.55-1.02); Calcium 9.2 mg/dL (8.5-10.1); Chloride 106 mmol/L (98-107); Glucose 144 mg/dL (74-106); Magnesium 1.6 mg/dL (1.8-2.4); Potassium 3.9 mmol/L (3.5-5.1); Sodium 145 mmol/L (136-145); Total Protein 7.2 g/dL (6.4-8.2); Troponin I < 0.05 ng/mL (<0.06)
[2020-09-13] MEDS: Omnipaque 350 MG/ML 100 ML BTL IJ (20:46)
[2020-09-13] MEDS: Normal Saline - Diluent 50 ML VIAL IV (20:46)
--- NOTE | 2020-09-13 21:25 | DI.VRAD_ITS ---
PROCEDURE INFORMATION: Exam: CTA Chest With Contrast Exam date and time: 09/13/2020 7:51 PM Age: 80 years old Clinical indication: Chest pressure; Patient HX: Chest pain today, pain around pacemaker. TECHNIQUE: Imaging protocol: Computed tomographic angiography of the chest with contrast. 3D rendering (Not supervised by radiologist): MIP and/or 3D reconstructed images were created by the technologist. Total images: 1426 Radiation optimization: All CT scans at this facility use at least one of these dose optimization techniques: automated exposure control; mA and/or kV adjustment per patient size (includes targeted exams where dose is matched to clinical indication); or iterative reconstruction. Contrast material: OMNIPAQUE 350; Contrast volume: 75 ml; Contrast route: INTRAVENOUS (IV); COMPARISON: CT CHEST FOR PULMONARY EMBOLUS 11/21/2014 5:38 PM FINDINGS: Tubes, catheters and devices: Mild cardiomegaly.Cardiac pacemaker without gross hardware complication or change. No gross fluid collections are seen around the pacer unit. Pulmonary arteries: The pulmonary arteries enhance appropriately with no evidence of pulmonary embolism. Aorta: The aorta enhances appropriately without evidence of dissection or aneurysm. No mediastinal hematoma. Moderate aortic ectasia/tortuosity with mild calcific atherosclerosis. Thyroid: The visualized thyroid gland demonstrates no gross abnormality. Lungs: No acute tracheobronchial abnormalities. No gross pulmonary infiltrates or edema pattern. Mild atelectasis in the lung bases. No pulmonary mass lesions are identified. Pleural spaces: No pleural effusion. No pneumothorax. Heart: No pericardial effusion. Mediastinal space: Moderate-sized hiatal hernia. The mid and distal stomach are grossly normal. Small peripelvic cysts in the left renal hilum unchanged. These do not require further evaluation. Lymph nodes: No supraclavicular or axillary adenopathy. No mediastinal or hilar adenopathy. Gallbladder and bile ducts: Prior cholecystectomy with expected mild postoperative dilatation of the common bile duct. This is unchanged. Pancreas: Mild pancreatic atrophy without acute abnormality. No pancreatic ductal dilatation. Bones/joints: No acute osseous abnormalities are identified. Osteopenia. Moderate rightward convexity lumbar scoliosis partially visualized. Soft tissues: The soft tissues of the chest wall demonstrate no acute abnormality. IMPRESSION: 1. No evidence of pulmonary embolism or aortic dissection. 2. No acute thoracic process. 3. Mild cardiomegaly and cardiac pacemaker without gross hardware complication or change. There are no fluid collections or inflammatory changes seen around the pacer unit although local streak artifact limits the assessment of this somewhat. 4. Moderate-sized hiatal hernia. 5. Additional non-emergent findings detailed above. Dictated and Authenticated by: Matheus Ghosh MD. Ordering:MIKAELA Roland MD
--- NOTE | 2020-09-13 22:45 | RT.EKG_ITS ---
APPROVED REPORT Exam: Resting ECG Reason for Exam: chest pain Patient Location: E HR:69 bpm ECG Measurements Heart Rate 69 AXIS MS 336 P 6 QRSd 115 QRS 23 QT 411 T 28 QTc 441 Conclusion Sinus rhythm...normal P axis, V-rate 60- 99 Prolonged MS interval...MS >220, V-rate 50- 90 Nonspecific intraventricular conduction delay...QRSd >115mS, not LBBB/RBBB Nonspecific T abnormalities, anterior leads...T <-0.10mV, V2-V4 Physician: persistant t wave inversions V2-V5, unchanged from today or 2014. no stemi or significant ST elevtion or depression
[2020-09-13 23:18] LABS: Troponin I < 0.05 ng/mL (<0.06)
--- NOTE | 2020-09-13 23:57 | NUR.NOTE ---
pt is pain free , she is dressed and waiting for RTC to bring her home Nursing Note:
== END 2020-09-14 00:25 | disposition home or self-care (01) ==
PROVIDERS: Physician Assistant; Emergency Provider Student in an Organized Health Care Education/Training Program; PCP Student in an Organized Health Care Education/Training Program
DX: R07.9 Chest pain, unspecified (principal); Z95.0 Presence of cardiac pacemaker
CPT/HCPCS: 36415; 71275; 80053; 93005; 96374; 99285; 83735; 84484; 85025; 85610; 85730; 93010; 99284; J3490

== ENCOUNTER 2020-09-24 02:23 | Outpatient (CLI) | payer MEDICARE, SELFPAY ==
--- NOTE | 2020-09-24 10:23 | DI.MAMMO_ITS ---
Exam(s) MG MAMMO DIAGNOSTIC UNI EXAM: MG MAMMO DIAGNOSTIC UNI CLINICAL HISTORY: DIAGNOSTIC, F/U ABNL MAMMO, 6 MONTH FOLLOW UP,Q83.9,R92.8. TECHNIQUE: Craniocaudal and mediolateral oblique Full Field Digital Mammography views of the right b reast with Computer Aided Diagnosis followed by Tomosynthesis. COMPARISON: Priors available for comparison FINDINGS: Mammography/Tomosynthesis: Masses/Architectural Distortion: None seen. Microcalcifictions: No suspicious pleomorphic-type are seen. Stable calcifications in the upper-outer quadrant of the right breast. Skin Thickening/Nipple Retraction: None. IMPRESSION: 1. No evidence of malignancy is noted. 2. Unless there is more urgent need, follow-up screening mammography is recommended, as per [employer] guidelines. 3. The findings were discussed with the patient on the date of the examination. BI-RADS Category 2 - Benign Findings Breast Density - Category B - Scattered areas of fibroglandular density Breast density Category C or D implies that the patient has dense breast tissue. Dense breast tissue can make it harder to find cancer on a mammogram. Dense breast tissue is also associated with an incr eased risk of breast cancer. This information about the result of the mammogram report was provided to the patient to raise their awareness. Use this report when you speak with the patient about their risks for breast cancer, which includes their family history. At that time, you may recommend additional screening tests (Ultrasoun d or MRI) as these tests may add significant information. A negative radiographic report should not delay biopsy if a dominant or clinically suspicious mass is present. Up to ten percent of cancers are not identified on mammography. A negative report may reinforce clinical impression. Adenosis and dense breasts may obscure an underlying neoplasm. False positive reports average 6 to 10%. Patient will receive a letter notifying them of these results.
== END 2020-09-24 02:43 ==
PROVIDERS: PCP Student in an Organized Health Care Education/Training Program; Visit Provider Student in an Organized Health Care Education/Training Program
DX: Z12.31 Encounter for screening mammogram for malignant neoplasm of breast (principal); R92.8 Other abnormal and inconclusive findings on diagnostic imaging of breast; N60.81 Other benign mammary dysplasias of right breast
CPT/HCPCS: 77061; 77065; G0279

== ENCOUNTER → 2020-10-13 13:08 | Outpatient (BNVA) | payer MEDICARE, SELFPAY | PROVIDERS: PCP Student in an Organized Health Care Education/Training Program; Referring Provider Student in an Organized Health Care Education/Training Program; Visit Provider Internal Medicine Cardiovascular Disease | DX: I10 Essential (primary) hypertension (principal); I48.91 Unspecified atrial fibrillation; Z95.0 Presence of cardiac pacemaker | CPT/HCPCS: 99213 ==

== ENCOUNTER 2021-01-27 04:05 | Outpatient (CLI) | payer MEDICARE, SELFPAY ==
[2021-01-28 10:58] LABS: FREE T4 1.31 ng/dL (0.76-1.46)
== END 2021-01-27 04:06 | disposition home or self-care (01) ==
LOC: LBO 04:05
PROVIDERS: PCP Student in an Organized Health Care Education/Training Program; Visit Provider Student in an Organized Health Care Education/Training Program
DX: R00.1 Bradycardia, unspecified (principal)
CPT/HCPCS: 36415; 84439; 84443

== ENCOUNTER → 2021-02-11 11:18 | Outpatient (BNVA) | payer MEDICARE, SELFPAY | PROVIDERS: PCP Student in an Organized Health Care Education/Training Program; Referring Provider Student in an Organized Health Care Education/Training Program; Visit Provider Physician Assistant | DX: I48.91 Unspecified atrial fibrillation (principal); Z45.018 Encounter for adjustment and management of other part of cardiac pacemaker | CPT/HCPCS: 93280; 99212 ==

== ENCOUNTER 2021-02-23 00:50 | Outpatient (CLI) | payer MEDICARE, SELFPAY ==
--- NOTE | 2021-02-23 06:30 | DI.NM_ITS ---
APPROVED REPORT Conclusion This is a pharmacologic nuclear stress test paired with low-level exercise Resting EKG showed atrial pacing, ventricular sensing At peak exercise there was atrial and ventricular pacing, peak heart rate was 120 Reported heart rates of 190 at peak exercise were inaccurate A resting myocardial perfusion imaging study alone was performed, this showed no evidence of prior my ocardial infarction. Perfusion appeared normal Resting scan was reviewed with Dr. Toure from radiology
== END 2021-02-23 01:10 ==
PROVIDERS: PCP Student in an Organized Health Care Education/Training Program; Visit Provider Physician Assistant
DX: I48.91 Unspecified atrial fibrillation (principal); Z95.0 Presence of cardiac pacemaker
CPT/HCPCS: 78452; 93016; 93018; 78451; 93017

== ENCOUNTER 2021-02-23 01:48 | Outpatient (CLI) | payer MEDICARE, SELFPAY ==
--- NOTE | 2021-02-23 08:45 | DI.RAD_ITS ---
Exam(s) XR LUMBAR SPINE COMP W FLEX/EX EXAM: XR LUMBAR SPINE COMP W FLEX/EX CLINICAL HISTORY: Evaluate stenosis, arthropathy; r/o bony path,spinal stenosis,leg weakness,. TECHNIQUE: 2D digital imaging was performed. COMPARISON: CR XR LUMBAR SPINE COMPLETE from 10/01/2019 FINDINGS: Again noted is rotoscoliosis convex right, appearing unchanged. No evidence of acute fracture. Agai n noted is advanced multilevel disc space narrowing. The epicenter of the scoliosis is again noted t o be at L2-3 level. Multilevel facet arthropathy is again noted. Sacroiliac joints appear unchanged . No ominous osseous lesions. Cardiac pacemaker wires in the right atrium and right ventricle are again noted as are cholecystectom y clips IMPRESSION: As above. No radiographic change from 10/01/2019. DATA REPOSITORY: RADIATION DOSE DELIVERED:
== END 2021-02-23 02:08 ==
PROVIDERS: PCP Student in an Organized Health Care Education/Training Program; Visit Provider Student in an Organized Health Care Education/Training Program
DX: M48.062 Spinal stenosis, lumbar region with neurogenic claudication (principal); M54.16 Radiculopathy, lumbar region; R29.898 Other symptoms and signs involving the musculoskeletal system
CPT/HCPCS: 72114

== ENCOUNTER 2021-02-23 10:50 | Emergency (ER) | payer MEDICARE, SELFPAY ==
[2021-02-23] VITALS (22 sets, daily range): BP systolic 127–144; BP diastolic 53–104; PULSE 59–94; RESP 11–21; TEMP 36.5–36.6; O2SAT 95–100
--- NOTE | 2021-02-23 10:45 | RT.EKG_ITS ---
APPROVED REPORT Exam: Resting ECG Reason for Exam: sob Patient Location: E HR:62 bpm ECG Measurements Heart Rate 62 AXIS NM 237 P [id number] QRSd 114 QRS 72 QT 390 T 67 QTc 396 Conclusion Atrial-paced rhythm no STEMI I have reviewed and interpreted ECG and agree with software generated interpretation.
[2021-02-23 11:04] LABS: Abs Immature Grans 0.02 10^3/uL (0.0-0.06); Absolute Basophil Count 0.01 10^3/uL (0.0-0.2); Absolute Eosinophil Count 0.12 10^3/uL (0.0-0.7); Absolute Lymphocyte Count 1.25 10^3/uL (1.2-3.4); Absolute Monocyte Count 0.47 10^3/uL (0.1-0.8); Basophils % 0.2; Eosinophils % 2.4; HCT 38.7 % (36.0-46.0); HGB 12.8 g/dL (11.2-15.7); Immature Grans % 0.4; Lymphocytes % 25.2; MCH 31.9 pg (27.0-33.0); MCHC 33.1 % (32.0-36.0); MCV 96.5 fL (80-95); MPV 11.1 fL (8.0-11.0); Monocytes % 9.5; Neutrophils % 62.3; Nucleated RBC 0 %; Platelet Count 181 10^3/uL (130-400); RBC 4.01 10^6/uL (3.93-5.22); RDW 12.6 % (11.7-14.6); RDW-SD 45.1 fL; WBC 4.97 10^3/uL (4.4-10.8)
[2021-02-23 11:17] LABS: ALT 24 U/L (14-59); AST 17 U/L (15-37); Albumin 3.5 g/dL (3.4-5.0); Alkaline Phosphatase 57 U/L (46-116); Anion Gap 7.6 mmol/L (3-11); BUN 12 mg/dL (7-18); Bilirubin, Total 0.6 mg/dL (0.2-1.0); CO2 29.4 mmol/L (21.0-32.0); CREATININE 0.7 mg/dL (0.55-1.02); Calcium 8.9 mg/dL (8.5-10.1); Chloride 104 mmol/L (98-107); Glucose 154 mg/dL (74-106); Potassium 3.7 mmol/L (3.5-5.1); Sodium 141 mmol/L (136-145); Total Protein 6.8 g/dL (6.4-8.2)
[2021-02-23 11:25] LABS: Magnesium 1.7 mg/dL (1.8-2.4)
[2021-02-23 11:28] LABS: INR 1.1 (0.9-1.1); Prothrombin Time 11.2 sec (9.3-11.0)
[2021-02-23 11:34] LABS: Troponin I < 0.05 ng/mL (<0.06)
[2021-02-23 11:40] LABS: TSH (W/Ref FT4) 1.28 uIU/mL (0.36-3.74)
[2021-02-23 11:50] LABS: D-Dimer 744 ng/mlFEU (<500)
--- NOTE | 2021-02-23 12:00 | DI.RAD_ITS ---
Exam(s) XR PORTABLE CHEST AP EXAM: XR PORTABLE CHEST AP CLINICAL HISTORY: episode of vtach, h/o pacemaker. TECHNIQUE: 2D digital imaging was performed. COMPARISON: CR XR CHEST 1V IN DI DEPT from 03/31/2018 FINDINGS: Heart size is upper normal. Bipolar left subclavian pacemaker again noted with lead tips in are in R A and RV The mediastinum is not widened. Lungs are clear. No infiltrates nor obvious pleural effusions. Incidentally noted is a calcific density measuring 1.3 x 1.3 cm in the right glenohumeral joint infer ior recess region IMPRESSION: No acute pulmonary findings on this single AP portable view of the chest. Bipolar pacemaker. No pulmonary edema. 13 x 13 millimeter right glenohumeral joint calcified loose body incidentally noted. DATA REPOSITORY: RADIATION DOSE DELIVERED: All CT scans at this facility use at least one of these dose optimization techniques: automated exposure control; mA and/or kV adjustment per patient size (includes targeted e xams where dose is matched to clinical indication); or iterative reconstruction.
--- NOTE | 2021-02-23 12:07 | W.ED.GENAD ---
Discharge Plan Disposition Patient Disposition: HOME Condition: Stable Discharge Details Clinical Impression: Atrioventricular pacing seen on electrocardiogram Primary Care Provider: Vicenta Freed ED Provider: Sandy Miller Home Meds and New Rx's Prescriptions: Continued omeprazole 40 mg capsule,delayed release(DR/EC) 40 mg PO DAILY Qty: 90 RF: 3 levothyroxine 112 mcg tablet 112 mcg PO DAILY Qty: 90 RF: 3 metformin 500 mg tablet 500 mg PO BID Qty: 60 RF: 1 flecainide 150 mg tablet 150 mg PO BID Qty: 180 RF: 1 Eliquis 5 mg tablet 5 mg PO BID Qty: 180 RF: 6 albuterol sulfate [ProAir HFA] 90 mcg/actuation HFA aerosol inhaler 2 puff Inhalation Q4H PRN PRN (Reason: shortness of breath or wheezing) Qty: 3 RF: 1 metoprolol tartrate 25 mg tablet 12.5 mg PO BID Qty: 90 RF: 3 Flovent HFA 110 mcg/actuation HFA aerosol inhaler 2 puff Inhalation BID Qty: 3 RF: 3 multivitamin 1 EACH capsule 1 ea PO DAILY RF: 0 acetaminophen [Mapap Extra Strength] 500 MG tablet 1,000 mg PO TID PRN PRNQty: 120 RF: 0 Discharge Instructions Additional Instructions: Please return immediately to the emergency department if you develop any new or worsening symptoms, if your condition does not improve as expected, or if you become otherwise concerned. 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 Referrals: Gaston Gonzalez [[facility]] - Vicenta Freed DO [Primary Care Provider] - Discharge Data Discharge Date/Time-TO BE ENTERED AT DEPARTURE: 02/23/21 12:52 Medical Decision Making Elaina Huddleston is an 81-year-old woman with a history of diabetes, hyperlipidemia, hypothyroidism, GERD, hypertension, atrial fibrillation on apixaban status post pacemaker placement presenting to the emergency department for episode of V. tach during stress test, Pt asymptomatic during episode. Now in atrially paced rhythm, continues to be asymptomatic. Concern for metabolic/electrolyte derangement, ACS, pulmonary embolism, other. EKG obtained and okay. Plan for IV placement, telemetry, screening labs, CXR, will interrogate pacer and discuss with Dr. García of cardiology. Labs reviewed, mild hypomagnesemia at 1.7, d-dimer elevated but WNL when age adjusted, trop neg. CXR neg. Pacer interrogation shows no v tach. Dr. García called ED, states that she reviewed tracing from stress test, no v. tach present, rhythm was normal with pacing artifact. No further intervention recommended. Mag repleted with PO. Plan for outpt f/u with PCP. Pt remains asymptomatic, requesting d/c to home. I had a lengthy discussion with Patient regarding return to emergency department precautions, home care, and importance of outpatient follow-up. Pt verbalizes understanding of the plan and is amenable. Patient discharged to home with clear plan for outpatient follow-up. All questions were answered. Disposition decision was made weighing the risks and benefits of hospitalization versus outpatient treatment, the risk for further decompensation, and the patient's wishes. Medical Records Medical records reviewed: Yes I reviewed the patient's medical records. Imaging Data Radiologic Study: Attestation: I personally reviewed and interpreted this imaging study as follows: Radiologist's impression: EXAM: XR PORTABLE CHEST AP CLINICAL HISTORY: episode of vtach, h/o pacemaker. TECHNIQUE: 2D digital imaging was performed. COMPARISON: CR XR CHEST 1V IN DI DEPT from 03/31/2018 FINDINGS: Heart size is upper normal. Bipolar left subclavian pacemaker again noted with lead tips in are in RA and RV The mediastinum is not widened. Lungs are clear. No infiltrates nor obvious pleural effusions. Incidentally noted is a calcific density measuring 1.3 x 1.3 cm in the right glenohumeral joint inferior recess region IMPRESSION: No acute pulmonary findings on this single AP portable view of the chest. Bipolar pacemaker. No pulmonary edema. 13 x 13 millimeter right glenohumeral joint calcified loose body incidentally noted. Lab Data Lab results reviewed: Yes I reviewed the patient's lab results. Labs: Laboratory Tests Range/Units 02/23/21 02/23/21 02/23/21 10:50 10:50 10:50 WBC (4.4-10.8) 10^3/uL 4.97 RBC (3.93-5.22) 10^6/uL 4.01 Hgb (11.2-15.7) g/dL 12.8 Hct (36.0-46.0) % 38.7 MCV (80-95) fL 96.5 H MCH (27.0-33.0) pg 31.9 MCHC (32.0-36.0) % 33.1 RDW (11.7-14.6) % 12.6 Plt Count (130-400) 10^3/uL 181 MPV (8.0-11.0) fL 11.1 H Immature Gran % 0.4 Neutrophils % 62.3 Lymphocytes % 25.2 Monocytes % 9.5 Eosinophils % 2.4 Basophils % 0.2 Nucleated RBC % % 0 Absolute Neutrophils (1.2-6.7) 10^3/uL 3.10 Absolute Lymphocytes (1.2-3.4) 10^3/uL 1.25 Absolute Monocytes (0.1-0.8) 10^3/uL 0.47 Absolute Eosinophils (0.0-0.7) 10^3/uL 0.12 Absolute Basophils (0.0-0.2) 10^3/uL 0.01 PT (9.3-11.0) sec INR (0.9-1.1) D-Dimer (<500) ng/mlFEU Sodium (136-145) mmol/L 141 Potassium (3.5-5.1) mmol/L 3.7 Chloride (98-107) mmol/L 104 Carbon Dioxide (21.0-32.0) mmol/L 29.4 Anion Gap (3-11) mmol/L 7.6 BUN (7-18) mg/dL 12 Creatinine (0.55-1.02) mg/dL 0.7 Estimated GFR/1.73 m2 (mL/min/1.73m2) >= 60.00 Glucose (74-106) mg/dL 154 H Calcium (8.5-10.1) mg/dL 8.9 Magnesium (1.8-2.4) mg/dL 1.7 L Total Bilirubin (0.2-1.0) mg/dL 0.6 AST (15-37) U/L 17 ALT (14-59) U/L 24 Alkaline Phosphatase (46-116) U/L 57 Troponin I (<0.06) ng/mL Total Protein (6.4-8.2) g/dL 6.8 Albumin (3.4-5.0) g/dL 3.5 TSH (0.36-3.74) uIU/mL Range/Units 02/23/21 02/23/21 02/23/21 10:50 10:50 11:10 WBC (4.4-10.8) 10^3/uL RBC (3.93-5.22) 10^6/uL Hgb (11.2-15.7) g/dL Hct (36.0-46.0) % MCV (80-95) fL MCH (27.0-33.0) pg MCHC (32.0-36.0) % RDW (11.7-14.6) % Plt Count (130-400) 10^3/uL MPV (8.0-11.0) fL Immature Gran % Neutrophils % Lymphocytes % Monocytes % Eosinophils % Basophils % Nucleated RBC % % Absolute Neutrophils (1.2-6.7) 10^3/uL Absolute Lymphocytes (1.2-3.4) 10^3/uL Absolute Monocytes (0.1-0.8) 10^3/uL Absolute Eosinophils (0.0-0.7) 10^3/uL Absolute Basophils (0.0-0.2) 10^3/uL PT (9.3-11.0) sec INR (0.9-1.1) D-Dimer (<500) ng/mlFEU 744 H Sodium (136-145) mmol/L Potassium (3.5-5.1) mmol/L Chloride (98-107) mmol/L Carbon Dioxide (21.0-32.0) mmol/L Anion Gap (3-11) mmol/L BUN (7-18) mg/dL Creatinine (0.55-1.02) mg/dL Estimated GFR/1.73 m2 (mL/min/1.73m2) Glucose (74-106) mg/dL Calcium (8.5-10.1) mg/dL Magnesium (1.8-2.4) mg/dL Total Bilirubin (0.2-1.0) mg/dL AST (15-37) U/L ALT (14-59) U/L Alkaline Phosphatase (46-116) U/L Troponin I (<0.06) ng/mL < 0.05 Total Protein (6.4-8.2) g/dL Albumin (3.4-5.0) g/dL TSH (0.36-3.74) uIU/mL 1.28 Range/Units 02/23/21 02/23/21 11:10 13:53 WBC (4.4-10.8) 10^3/uL RBC (3.93-5.22) 10^6/uL Hgb (11.2-15.7) g/dL Hct (36.0-46.0) % MCV (80-95) fL MCH (27.0-33.0) pg MCHC (32.0-36.0) % RDW (11.7-14.6) % Plt Count (130-400) 10^3/uL MPV (8.0-11.0) fL Immature Gran % Neutrophils % Lymphocytes % Monocytes % Eosinophils % Basophils % Nucleated RBC % % Absolute Neutrophils (1.2-6.7) 10^3/uL Absolute Lymphocytes (1.2-3.4) 10^3/uL Absolute Monocytes (0.1-0.8) 10^3/uL Absolute Eosinophils (0.0-0.7) 10^3/uL Absolute Basophils (0.0-0.2) 10^3/uL PT (9.3-11.0) sec 11.2 H INR (0.9-1.1) 1.1 D-Dimer (<500) ng/mlFEU Sodium (136-145) mmol/L Potassium (3.5-5.1) mmol/L Chloride (98-107) mmol/L Carbon Dioxide (21.0-32.0) mmol/L Anion Gap (3-11) mmol/L BUN (7-18) mg/dL Creatinine (0.55-1.02) mg/dL Estimated GFR/1.73 m2 (mL/min/1.73m2) Glucose (74-106) mg/dL Calcium (8.5-10.1) mg/dL Magnesium (1.8-2.4) mg/dL Total Bilirubin (0.2-1.0) mg/dL AST (15-37) U/L ALT (14-59) U/L Alkaline Phosphatase (46-116) U/L Troponin I (<0.06) ng/mL Cancelled Total Protein (6.4-8.2) g/dL Albumin (3.4-5.0) g/dL TSH (0.36-3.74) uIU/mL ECG Data Attestation: I personally reviewed and interpreted this ECG (s) as follows: Interpretation: EKG shows atrial paced rhythm at 62, normal axis, inferior T wave changes improved from prior 09/13/2020, no STEMI, nondiagnostic EKG HPI General Mode of arrival: wheelchair. Date/Time Provider Initiated Documentation: 02/23/21 10:52. Limitations to Documentation: no limitations. Information obtained by: patient, RN notes reviewed and old records reviewed. HPI Narrative: Elaina Huddleston is an 81-year-old woman with a history of diabetes, hyperlipidemia, hypothyroidism, GERD, hypertension, atrial fibrillation on apixaban status post pacemaker placement presenting to the emergency department for episode of V. tach. Patient had nuclear stress test today, ordered by cardiology for proximal atrial fibrillation. Stress test staff report that during stress test patient had 5 to 6 minutes of ventricular tachycardia, triage note reports patient complaining of shortness of breath during episode, however patient states to me that she felt essentially normal at the time and had no symptoms. Patient converted to sinus rhythm, patient denies sensation of defibrillator shock, is now in an atrially paced rhythm on the monitor. Patient sent to the emergency department by Dr. García of cardiology for further evaluation. Patient denies any pain, cough, shortness of breath, fever, vomiting, diarrhea, numbness, weakness. Patient reports that she feels well and in her usual state of health and has no recent illness. She reports that she has had a good appetite. No complaints recently or at this time. Related Data Home Medications Medication Instructions Recorded Confirmed multivitamin 1 ea PO DAILY 11/05/12 02/23/21 acetaminophen [Mapap Extra 1,000 mg PO TID PRN PRN #120 tab 12/03/16 02/23/21 Strength] apixaban 5 mg tablet 5 mg PO BID #180 tab-cap 05/26/20 02/23/21 albuterol sulfate 90 mcg/actuation 2 puff INHALATION Q4H PRN PRN #3 06/11/20 02/23/21 aerosol inhaler inhaler metoprolol tartrate 25 mg tablet 12.5 mg PO BID #90 tab 07/23/20 02/23/21 omeprazole 40 mg capsule,delayed 40 mg PO DAILY #90 tab-cap 08/07/20 02/23/21 release fluticasone propionate 110 2 puff INHALATION BID #3 inh 02/06/21 02/23/21 mcg/actuation HFA aerosol inhaler flecainide 150 mg tablet 150 mg PO BID #180 tab-cap 02/19/21 02/23/21 levothyroxine 112 mcg tablet 112 mcg PO DAILY #90 tab-cap 02/19/21 02/23/21 metformin 500 mg tablet 500 mg PO BID #60 tab 02/19/21 02/23/21 Previous Rx's Medication Instructions Recorded acetaminophen [Mapap Extra 1,000 mg PO TID PRN PRN #120 tab 12/03/16 Strength] apixaban 5 mg tablet 5 mg PO BID #180 tab-cap 05/26/20 albuterol sulfate 90 mcg/actuation 2 puff INHALATION Q4H PRN PRN #3 06/11/20 aerosol inhaler inhaler metoprolol tartrate 25 mg tablet 12.5 mg PO BID #90 tab 07/23/20 omeprazole 40 mg capsule,delayed 40 mg PO DAILY #90 tab-cap 08/07/20 release fluticasone propionate 110 2 puff INHALATION BID #3 inh 02/06/21 mcg/actuation HFA aerosol inhaler flecainide 150 mg tablet 150 mg PO BID #180 tab-cap 02/19/21 levothyroxine 112 mcg tablet 112 mcg PO DAILY #90 tab-cap 02/19/21 metformin 500 mg tablet 500 mg PO BID #60 tab 02/19/21 Allergies Allergy/AdvReac Type Severity Reaction Status Date / Time ranitidine Allergy Severe WHEEZING Verified 02/23/21 11:05 cefadroxil Allergy Mild Verified 02/23/21 11:05 ciprofloxacin AdvReac Intermediate WEAKNESS Verified 02/23/21 11:05 pneumococcal 13-valent AdvReac Intermediate temp and Verified 02/23/21 11:05 conjugate to body aches [From Prevnar 13 (PF)] sucralfate AdvReac Intermediate N/V Verified 02/23/21 11:05 General Stated Complaint: SOB DEXTER: 3 Review of Systems Narrative: Constitutional: denies fevers Eyes: denies eye pain ENT: denies ear pain, dental pain, sore throat Cardiovascular: denies chest pain, edema, palpitations Respiratory: denies SOB, cough GI: denies abdominal pain, vomiting, diarrhea : denies flank pain MSK: denies back pain, neck pain, arthralgias, myalgias Skin: denies rash Neuro: denies headaches, numbness, weakness PFSH Medical History Asthma Atrial fibrillation Deformity of toenail Essential hypertension GERD without esophagitis High risk medications (not anticoagulants) long-term use Flecainide - started by Dr. Douglass Hypothyroidism Leg edema Leg weakness With standing .. Hx lumbar stenosis .. Hx spinal injection (?) Sensorineural hearing loss of both ears Surgical History Cardiac Cath, 2008 Cholecystectomy Colonoscopy - IV Sedation (03/17/16) EGD - MAC (06/29/17) Extraction of cataract B/L Hernia, hiatal (banding) Hyseterectomy, Total Laparoscopic w/ BSO (07/01/16) +Endometrial cancer Pacemaker (12/04/13) Replacement of total knee joint (12/03/16) R knee Dr Del Cid sentinal lymph node dissection (07/01/16) NEG for mets from endometrium upper GI Series (10/05/17) for sx of epigastric dysphagia,GERD. Done by Dr. Duncan. Impression: Moderate sized Hiatal Hernia. Marked gastroesophageal reflux. Family History Mother , old age at age 98. No problems noted. Father , Heart disease at age 64. Heart disease [place] Sister , Colon [place] Personal history of malignant neoplasm Sister , Heart problems at age 72. Personal history of malignant neoplasm Breast cancer, dx'ed in her 60s Heart disease Sister Hypertensive disorder, systemic arterial Diabetes Sister Diabetes Sister Hypertensive disorder, systemic arterial Brother , Parkinson's at age 75. Personal history of malignant neoplasm Brother Parkinson's disease Brother , Heart condition at age 62. Hypertensive disorder, systemic arterial Diabetes Brother Hypertensive disorder, systemic arterial Diabetes Social History Smoking/Tobacco Use Status: Never Smoking risk assessment performed?: Yes Alcohol Intake: never Drug use: Never Substance use type: does not use Adopted: No Foster care: No Housing: apartment Number of Children: 0 number of grandchildren: 0 Communication Needs: Corrective Lenses current occupation: retired from [employer] Pets and animals: No Current gender identity: female What is your relationship status?: Panel score (0-1 are the most socially isolated patients): 0 Seatbelt use: always Working smoke detector in home: Yes Fire extinguisher in home: Yes Carbon monox detector in home: Yes Firearms in home: No Do you feel safe at home: Yes Do you feel safe in your relationship?: Yes Exam Narrative Exam Narrative: Constitutional: well and [id number], pleasant, conversing normally HENT: head atraumatic/normocephalic/normal inspection, mucous membranes moist Eyes: conjunctiva normal, sclera normal, pupils 3mm b/l Neck: no stridor, normal ROM, trachea midline Chest: normal inspection Resp: normal work of breathing, LCTAB Cardio: normal rate, normal rhythm, no murmur appreciated GI: abdomen soft, non-tender, non-distended Back: normal inspection, no rash Skin: warm, dry, normal color, no rash Neuro: alert, not altered, grossly non-focal, normal tone Ext: no edema, no posterior calf TTP Psych: normal mood, normal affect, normal behavior Course Vital Signs Vital signs: Vital Signs Temperature 36.6 C 02/23/21 10:57 Pulse 85 02/23/21 10:57 Respiratory Rate 16 02/23/21 10:57 Blood Pressure 144/72 H 02/23/21 10:57 Pulse Oximetry 95 02/23/21 10:57 Temperature 36.6 C 02/23/21 10:57 Temperature Source Tympanic 02/23/21 10:57 Pulse 72 02/23/21 11:03 Pulse 60 02/23/21 11:10 Respiratory Rate 14 02/23/21 11:10 Respiratory Effort 02/23/21 11:23 Respiratory Depth Normal 02/23/21 11:23 Respiratory Pattern Normal 02/23/21 11:23 Blood Pressure 144/72 H 02/23/21 11:03 Blood Pressure Mean 89 02/23/21 11:03 Blood Pressure Position Sitting 02/23/21 10:57 Pulse Oximetry 100 02/23/21 11:10 Oxygen Delivery Method Room Air 02/23/21 10:57 Oxygen Flow Rate 0 02/23/21 10:57 Lab/Test Results Lab/Test Results: Laboratory Tests Range/Units 02/23/21 02/23/21 02/23/21 10:50 10:50 10:50 WBC (4.4-10.8) 10^3/uL 4.97 RBC (3.93-5.22) 10^6/uL 4.01 Hgb (11.2-15.7) g/dL 12.8 Hct (36.0-46.0) % 38.7 MCV (80-95) fL 96.5 H MCH (27.0-33.0) pg 31.9 MCHC (32.0-36.0) % 33.1 RDW (11.7-14.6) % 12.6 Plt Count (130-400) 10^3/uL 181 MPV (8.0-11.0) fL 11.1 H Immature Gran % 0.4 Neutrophils % 62.3 Lymphocytes % 25.2 Monocytes % 9.5 Eosinophils % 2.4 Basophils % 0.2 Nucleated RBC % % 0 Absolute Neutrophils (1.2-6.7) 10^3/uL 3.10 Absolute Lymphocytes (1.2-3.4) 10^3/uL 1.25 Absolute Monocytes (0.1-0.8) 10^3/uL 0.47 Absolute Eosinophils (0.0-0.7) 10^3/uL 0.12 Absolute Basophils (0.0-0.2) 10^3/uL 0.01 PT (9.3-11.0) sec INR (0.9-1.1) D-Dimer (<500) ng/mlFEU Sodium (136-145) mmol/L 141 Potassium (3.5-5.1) mmol/L 3.7 Chloride (98-107) mmol/L 104 Carbon Dioxide (21.0-32.0) mmol/L 29.4 Anion Gap (3-11) mmol/L 7.6 BUN (7-18) mg/dL 12 Creatinine (0.55-1.02) mg/dL 0.7 Estimated GFR/1.73 m2 (mL/min/1.73m2) >= 60.00 Glucose (74-106) mg/dL 154 H Calcium (8.5-10.1) mg/dL 8.9 Magnesium (1.8-2.4) mg/dL 1.7 L Total Bilirubin (0.2-1.0) mg/dL 0.6 AST (15-37) U/L 17 ALT (14-59) U/L 24 Alkaline Phosphatase (46-116) U/L 57 Troponin I (<0.06) ng/mL Total Protein (6.4-8.2) g/dL 6.8 Albumin (3.4-5.0) g/dL 3.5 TSH (0.36-3.74) uIU/mL Range/Units 02/23/21 02/23/21 02/23/21 10:50 10:50 11:10 WBC (4.4-10.8) 10^3/uL RBC (3.93-5.22) 10^6/uL Hgb (11.2-15.7) g/dL Hct (36.0-46.0) % MCV (80-95) fL MCH (27.0-33.0) pg MCHC (32.0-36.0) % RDW (11.7-14.6) % Plt Count (130-400) 10^3/uL MPV (8.0-11.0) fL Immature Gran % Neutrophils % Lymphocytes % Monocytes % Eosinophils % Basophils % Nucleated RBC % % Absolute Neutrophils (1.2-6.7) 10^3/uL Absolute Lymphocytes (1.2-3.4) 10^3/uL Absolute Monocytes (0.1-0.8) 10^3/uL Absolute Eosinophils (0.0-0.7) 10^3/uL Absolute Basophils (0.0-0.2) 10^3/uL PT (9.3-11.0) sec INR (0.9-1.1) D-Dimer (<500) ng/mlFEU 744 H Sodium (136-145) mmol/L Potassium (3.5-5.1) mmol/L Chloride (98-107) mmol/L Carbon Dioxide (21.0-32.0) mmol/L Anion Gap (3-11) mmol/L BUN (7-18) mg/dL Creatinine (0.55-1.02) mg/dL Estimated GFR/1.73 m2 (mL/min/1.73m2) Glucose (74-106) mg/dL Calcium (8.5-10.1) mg/dL Magnesium (1.8-2.4) mg/dL Total Bilirubin (0.2-1.0) mg/dL AST (15-37) U/L ALT (14-59) U/L Alkaline Phosphatase (46-116) U/L Troponin I (<0.06) ng/mL < 0.05 Total Protein (6.4-8.2) g/dL Albumin (3.4-5.0) g/dL TSH (0.36-3.74) uIU/mL 1.28 Range/Units 02/23/21 11:10 WBC (4.4-10.8) 10^3/uL RBC (3.93-5.22) 10^6/uL Hgb (11.2-15.7) g/dL Hct (36.0-46.0) % MCV (80-95) fL MCH (27.0-33.0) pg MCHC (32.0-36.0) % RDW (11.7-14.6) % Plt Count (130-400) 10^3/uL MPV (8.0-11.0) fL Immature Gran % Neutrophils % Lymphocytes % Monocytes % Eosinophils % Basophils % Nucleated RBC % % Absolute Neutrophils (1.2-6.7) 10^3/uL Absolute Lymphocytes (1.2-3.4) 10^3/uL Absolute Monocytes (0.1-0.8) 10^3/uL Absolute Eosinophils (0.0-0.7) 10^3/uL Absolute Basophils (0.0-0.2) 10^3/uL PT (9.3-11.0) sec 11.2 H INR (0.9-1.1) 1.1 D-Dimer (<500) ng/mlFEU Sodium (136-145) mmol/L Potassium (3.5-5.1) mmol/L Chloride (98-107) mmol/L Carbon Dioxide (21.0-32.0) mmol/L Anion Gap (3-11) mmol/L BUN (7-18) mg/dL Creatinine (0.55-1.02) mg/dL Estimated GFR/1.73 m2 (mL/min/1.73m2) Glucose (74-106) mg/dL Calcium (8.5-10.1) mg/dL Magnesium (1.8-2.4) mg/dL Total Bilirubin (0.2-1.0) mg/dL AST (15-37) U/L ALT (14-59) U/L Alkaline Phosphatase (46-116) U/L Troponin I (<0.06) ng/mL Total Protein (6.4-8.2) g/dL Albumin (3.4-5.0) g/dL TSH (0.36-3.74) uIU/mL
--- NOTE | 2021-02-23 12:14 | NUR.NOTE ---
pacemaker interrogated and sent Nursing Note:
[2021-02-23] MEDS: Magnesium Oxide 400 MG TAB PO (12:40)
== END 2021-02-23 12:52 | disposition home or self-care (01) ==
PROVIDERS: Emergency Provider Student in an Organized Health Care Education/Training Program; PCP Student in an Organized Health Care Education/Training Program
DX: I49.1 Atrial premature depolarization (principal); E83.42 Hypomagnesemia; Z95.0 Presence of cardiac pacemaker; E03.9 Hypothyroidism, unspecified
CPT/HCPCS: 36415; 72114; 80053; 93005; 93016; 93018; 99285; 71045; 78451; 83735; 84443; 84484; 85025; 85379; 85610; 93010

== ENCOUNTER → 2021-05-19 10:54 | Outpatient (BNVA) | payer MEDICARE, SELFPAY | PROVIDERS: PCP Student in an Organized Health Care Education/Training Program; Referring Provider Student in an Organized Health Care Education/Training Program; Visit Provider Surgery | DX: K21.9 Gastro-esophageal reflux disease without esophagitis (principal); Z95.0 Presence of cardiac pacemaker; I48.91 Unspecified atrial fibrillation | CPT/HCPCS: 99212; 99213 ==

== ENCOUNTER 2021-05-21 11:16 | Outpatient (CLI) | payer MEDICARE, SELFPAY ==
--- NOTE | 2021-05-21 11:15 | RT.EKG_ITS ---
APPROVED REPORT Exam: Resting ECG Reason for Exam: tachycardia Patient Location: O HR:128 bpm ECG Measurements Heart Rate 128 AXIS IA 141 P 100 QRSd 245 QRS -89 QT 436 T 104 QTc 638 Conclusion Ventricular-paced rhythm
== END 2021-05-21 11:17 | disposition home or self-care (01) ==
LOC: DI.KIM 11:17
PROVIDERS: PCP Student in an Organized Health Care Education/Training Program; Visit Provider Student in an Organized Health Care Education/Training Program
DX: R00.0 Tachycardia, unspecified (principal); Z95.0 Presence of cardiac pacemaker
CPT/HCPCS: 93010

== ENCOUNTER 2021-06-01 03:11 | Outpatient (CLI) | payer MEDICARE, SELFPAY ==
[2021-06-01 10:11] LABS: Source Nasal/Nares
[2021-06-01 12:57] LABS: COVID-19 PCR Negative (Negative)
== END 2021-06-01 03:12 | disposition home or self-care (01) ==
LOC: LBO 03:11
PROVIDERS: PCP Student in an Organized Health Care Education/Training Program; Visit Provider Surgery
DX: Z20.822 Contact with and (suspected) exposure to COVID-19 (principal); Z01.818 Encounter for other preprocedural examination
CPT/HCPCS: 87635

== ENCOUNTER 2021-06-03 08:19 | Day surgery (SDC) | payer MEDICARE, SELFPAY ==
--- NOTE | 2021-06-03 06:38 | ENDO_ITS ---
Date of service: 06/03/21 Time of Service: Endoscopy Report DATE OF PROCEDURE: 06/03/21 PRE-OP DIAGNOSIS: Dysphagia, GERD POST-OP DIAGNOSIS: other (Gastritis, duodenitis, Hiatal Hernia and Reflux esophagitis) PROCEDURE: EGD with biopsies SURGEON: Eusebia Tavera ANESTHESIA TYPE: General:No Airway (Nirav Antunez, CLAIRE) ESTIMATED BLOOD LOSS: 3 PATHOLOGY: other (Duodenal bx, antrum bx, GE junction bx, ) COMPLICATIONS: None DISPOSITION: same day INDICATIONS: Mrs Huddleston is an 81-year-old female with a history of reflux who comes in with increased and heartburn and reflux symptoms as well as some dysphagia. Her last upper endoscopy was in 2018 and showed some mild gastritis. Duodenal biopsies were normal. We discussed the procedure, risks and benefits. I reviewed her cardiac history. I will have anesthesia review her history as well. I do not think that she needs an echocardiogram especially as she just saw cardiology who did not feel she needed 1. Risks, benefits and complications have been reviewed. Complications include but are not limited to bleeding, pain, perforation, sore throat, aspiration, and adverse reaction to the medications. Questions were entertained and answered to their satisfaction and they wished to proceed. No guarantees were given or implied. EGD under sedation (2) Pacemaker: (3) Atrial fibrillation: PROCEDURE START TIME: FINDINGS: Inflammation of the duodenum, stomach and esophagus. Hiatal hernia PROCEDURE DESCRIPTION: After informed consent was obtained the patient was take to the procedure room and placed in a supine position. Monitors were applied and a time out was done. The patients name, date of , procedure type, allergies to medications and metal in their body was reviewed. A bite block was placed and the patient was sedated. Once sedated and comfortable the gastroscope was advanced through the oropharynx which was grossly normal into the esophagus. The proximal and mid- esophagus were normal. In the distal esophagus there was some scarring and mild inflammation noted. The GE junction was wide open. The scope was advanced into the stomach and through the pylorus into the 3rd portion of the duodenum. The duodenum was noted to have some mild inflammation. Biopsies were done in D2. The scope was retracted back into the stomach. There was moderate inflammation of the antrum and body. Biopsies were done to rule out H. pylori. There were no ulcers. The scope was retroflexed. The cardia and fundus were noted to be normal. There was a 5 cm hiatal hernia noted. The scope was retracted back into the esophagus and biopsies were done of the GE junction to rule out Saleh's. The Z line was regular. The GE junction was at 32 cm. The scope was removed and the patient was woken up and taken back to [facility] in stable condition. Follow up: 7-10 days in the office
--- NOTE | 2021-06-03 06:41 | W.PM.DSUDISC ---
Discharge Plan Disposition Patient Disposition: HOME Condition: Good Discharge Details Reason For Visit: EGD Attending Provider: Eusebia Tavera Primary Care Provider: Vicenta Freed Home Meds and New Rx's Prescriptions: New omeprazole 40 mg capsule,delayed release(DR/EC) 40 mg PO BID Qty: 60 RF: 0 Continued levothyroxine 112 mcg tablet 112 mcg PO DAILY Qty: 90 RF: 3 flecainide 150 mg tablet 150 mg PO BID Qty: 180 RF: 1 (DME) compress.stocking,knee,reg,lrg Misc See Rx Instructions .ROUTE .MEDSUPPLY Qty: 1 RF: 0 Jardiance 10 mg tablet 10 mg PO DAILY Qty: 30 RF: 1 Eliquis 5 mg tablet 5 mg PO BID Qty: 180 RF: 6 albuterol sulfate [ProAir HFA] 90 mcg/actuation HFA aerosol inhaler 2 puff Inhalation Q4H PRN PRN (Reason: shortness of breath or wheezing) Qty: 3 RF: 1 metoprolol tartrate 25 mg tablet 12.5 mg PO BID Qty: 90 RF: 3 Flovent HFA 110 mcg/actuation HFA aerosol inhaler 2 puff Inhalation BID Qty: 3 RF: 3 multivitamin 1 EACH capsule 1 ea PO DAILY RF: 0 acetaminophen [Mapap Extra Strength] 500 MG tablet 1,000 mg PO TID PRN PRNQty: 120 RF: 0 Discontinued omeprazole 40 mg capsule,delayed release(DR/EC) 40 mg PO DAILY Qty: 90 RF: 3 Discharge Instructions Instructions: Diet for Stomach Ulcers and Gastritis (ED), Gastritis (DC), GERD (Gastroesophageal Reflux Disease) (DC), Hiatal Hernia (DC) Additional Instructions: Findings: Inflammation of the stomach, Hiatal Hernia Follow up: in the office on 06/12 Please call if you develop: fevers >101.5 Nausea or Vomiting Abdominal pain that is not transient Rectal bleeding that is more then a tbsp A hard abdomen and inability to pass gas DAY SURGERY UNIT POST ENDOSCOPY INSTRUCTIONS Instructions for everyone who is given Anesthesia: For your safety, please do the following for the next 24 Hours: a. Do not drive or operate dangerous equipment b. Do not drink alcohol beverages or use any recreational drugs for the first 24 hours or while taking pain medications. The medications in your body may have a reaction that can be dangerous. c. Do not make any important decisions or sign any important papers 1. Generally there are no restrictions on your activity after a day or so has gone by, but you may feel a bit fatigued for a few days. 2. After you arrive home you may have a light meal and return to a normal diet as you can tolerate it without feeling sick to your stomach. 3. After surgery, you may feel pain or discomfort. This should be only transient, but if it persists please contact your doctor. 4. If there are any questions regarding the findings of your procedure, please feel free to contact your doctor. 6. If you are unable to contact your doctor with a problem, contact the hospital at [phone]. 7. Continue all your regular medications unless directed otherwise. I understand the above instructions and have no questions. Signature of Patient or Responsible Adult Escort Date/Time Name of Responsible Adult Escort Signature of Nurse Date/Time Referrals: Eusebia Tavera MD [ [facility] STAFF PHYSICIAN] - Activity:: Activity as Tolerated Diet:: low acid Discharge Orders Discharge Orders: Discharge Order (Routine); Ordered 06/03/21 Ordered By: Eusebia Tavera
[2021-06-03 08:33] VITALS: BP 148/87; PULSE 91; RESP 18; TEMP 36.1; O2SAT 95
[2021-06-03] MEDS: Lactated Ringers 1,000 ML 80 ML IV (08:53)
--- NOTE | 2021-06-03 09:04 | ANES.PREOP_ITS ---
General Info Date of Service Date Performed: 06/03/21 Height: 5 ft 1 in Weight: 83.8 kg Body Mass Index (BMI): 34.9 Surgical Procedure: Operation Date: 06/03/21 09:35 Proposed Procedures Side Surgeon p Gastroscopy Eusebia Tavera MD Meds Allergies and Home Medications Allergies Allergy/AdvReac Type Severity Reaction Status Date / Time ranitidine Allergy Severe WHEEZING Verified 06/03/21 08:42 cefadroxil Allergy Mild Verified 06/03/21 08:42 ciprofloxacin AdvReac Intermediate WEAKNESS Verified 06/03/21 08:42 pneumococcal 13-valent AdvReac Intermediate temp and Verified 06/03/21 08:42 conjugate to body aches [From Prevnar 13 (PF)] sucralfate AdvReac Intermediate N/V Verified 06/03/21 08:42 Home Medication Medication Instructions Recorded multivitamin 1 ea PO DAILY 11/05/12 acetaminophen [Mapap Extra 1,000 mg PO TID PRN PRN #120 tab 12/03/16 Strength] apixaban 5 mg tablet 5 mg PO BID #180 tab-cap 05/26/20 albuterol sulfate 90 mcg/actuation 2 puff INHALATION Q4H PRN PRN #3 06/11/20 aerosol inhaler inhaler metoprolol tartrate 25 mg tablet 12.5 mg PO BID #90 tab 07/23/20 omeprazole 40 mg capsule,delayed 40 mg PO DAILY #90 tab-cap 08/07/20 release fluticasone propionate 110 2 puff INHALATION BID #3 inh 02/06/21 mcg/actuation HFA aerosol inhaler flecainide 150 mg tablet 150 mg PO BID #180 tab-cap 02/19/21 levothyroxine 112 mcg tablet 112 mcg PO DAILY #90 tab-cap 02/19/21 compress.stocking,knee,reg,lrg #1 ea 03/20/21 empagliflozin 10 mg tablet 10 mg PO DAILY #30 tab 04/25/21 Current Visit Medications: Current Medications Generic Name Dose Route Start Last Admin Trade Name Freq PRN Reason Stop Dose Admin Hyoscyamine Sulfate 0.125 mg 06/03/21 06:42 Hyoscyamine 0.125 Mg Sl/Oral/Chew SL DIRECTED PRN Ringer's Solution 1,000 mls @ 80 mls/hr 06/03/21 06:00 06/03/21 08:53 IV 06/22/21 23:59 80 mls/hr INFUSION FLORIAN Administration IV Miscellaneous Supplies 1 each 06/03/21 06:00 Iv Access IV 06/22/21 23:59 DIRECTED FLORIAN Ondansetron HCl 4 mg 06/03/21 06:42 Ondansetron 4 Mg/2 Ml Vial IVP Q4H PRN PRN Nausea / Vomiting Sodium Chloride 0 ml 06/03/21 06:00 Normal Saline Flush 10 Ml Syr IV 06/22/21 23:59 PRN PRN Sodium Chloride 0 ml 06/03/21 06:00 Normal Saline 10 Ml Vial IJ 06/22/21 23:59 DIRECTED PRN Sterile Water 0 ml 06/03/21 06:00 Water,Injection,Sterile 10 Ml Vial IJ 06/22/21 23:59 DIRECTED PRN PFSH Active Problems Active Problems: Problem Status Onset Code Tachycardia R00.0 Atrioventricular pacing seen on electrocardiogram R94.31 Pacemaker 09/16/17 Z95.0 SOB (shortness of breath) R06.02 Reactive airway disease J45.909 Chest pain R07.9 Dysphagia, unspecified 07/07/12 R13.10 Atrophic gastritis without mention of hemorrhage 07/07/12 K29.40 Gastroesophageal reflux disease 07/07/12 K21.9 Epigastric abdominal pain of unknown etiology 05/26/17 R10.13 Obesity, unspecified 07/06/11 E66.9 Atrioventricular block 07/07/12 I44.30 Atrial fibrillation 07/06/11 I48.91 Medical History Medical History Asthma (01/18/13) possible asthma; PFTs normal 04/27/2012.07/2013 Atrial fibrillation 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 A1C goal 7.5 ... 7.1 today, 08/07/20. 6.8/6.9 in 11/2016. A1C 6.5 post weight loss and focused effort on reducing carbs/sweets. 06/02/18, ik A1C remains @ 6.5 08/2018, good job! 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 [facility] q6m x1 year, then annually. --[facility] [place] 06/2016 Shakira Diaz MD Post-radiation association with new abd pain (?), ik, 05/26/17 Essential hypertension (01/18/13) FRS 13% .. Well controlled, 116/70 06/02/18, ik Exertional dyspnea (01/28/15) Family hx-breast malignancy (11/13/12) SISTER IN 60s High risk medications (not anticoagulants) long-term use Flecainide - started by Dr. Douglass History of hiatal hernia History of postmenopausal bleeding Hot flashes Hot Flashes x 6 mos, 06/13/19. Hyperlipidemia (07/07/12) Hypomagnesemia Noted @ ED, 02/2021 .. replenished. Monitor [ ] Hypothyroidism (01/02/13) TSH 2.43 (05/2017) vs. >9 (02/2017). Cont @ same 88mcg. Impaired glucose tolerance (03/10/12) Leg edema Leg weakness With standing .. Hx lumbar stenosis .. Hx spinal injection (?) Macular pucker Multinodular goiter (12/19/15) Muscle spasm of left shoulder area Trapezius MM Spasm .. Neurogenic pain of right lower extremity (09/19/15) Osteoarth NOS-unspec (07/06/11) Pelvic pain (02/07/13) Piriformis syndrome of right side Postnasal drip (01/09/15) Primary osteoarthritis of right knee (01/10/17) s/p RT TKR Fall 2018 Right lumbar radiculopathy Sensorineural hearing loss of both ears Sensorineural hearing loss, bilateral (12/28/13) Spinal stenosis of lumbar region Symptomatic bradycardia Thyroid nodule (01/28/15) 01/01/15 US 4mm nodule isthmus 05/15/15 US 4.5 nodule isthmus, ?7x5 nodule right Trochanteric bursitis, right hip (05/19/16) Urge incontinence Surgical History Surgical History Cardiac Cath, 2008 Cholecystectomy Colonoscopy - IV Sedation (03/17/16) EGD - MAC (06/29/17) Extraction of cataract B/L Hernia, hiatal (banding) History of Surgical Procedure a. Cholecystectomy. b. Bilateral cataract surgery. c. Hiatal hernia repair 2008. d. Esophagus stretching 2013 - Dr. Ragsdale. e. Pacemaker 12/04/2013 Hyseterectomy, Total Laparoscopic w/ BSO (07/01/16) +Endometrial cancer Pacemaker (12/04/13) Replacement of total knee joint (12/03/16) R knee Dr Del Cid sentinal lymph node dissection (07/01/16) NEG for mets from endometrium Status post right knee replacement Dr. Del Cid, Ortho. She is happy with knee, able to step down from sidewalk w/o fear per 03/02/18 appt discussion. COntinues to do well; seeing ortho for possible neuropathic pain (outer rt calf). upper GI Series (10/05/17) for sx of epigastric dysphagia,GERD. Done by Dr. Duncan. Impression: Moderate sized Hiatal Hernia. Marked gastroesophageal reflux. Tobacco Smoking/Tobacco Use Status: Never Alcohol Alcohol Intake: never Substance Use Substance use: Never Substance use type: does not use Vital Signs and Lab Results Vital Signs Most Recent Vital Signs in EMR: Most Recent Vital Signs Temp Pulse Resp BP Pulse Ox 36.1 C L 91 H 18 148/87 H 95 06/03/21 08:33 06/03/21 08:33 06/03/21 08:33 06/03/21 08:33 06/03/21 08:33 Point of Care Results Point of Care Results: Finger Stick Blood Glucose 131 06/03/21 08:33 Lab Results Blood Type / Crossmatch: No Data to Display Complete Blood Count: No Data to Display Complete Metabolic Panel: Hemoglobin A1c 7.5 % (4.5-5.7) H 05/21/21 11:16 05/21/21 Liver Function Panel: No Data to Display Coagulation Panel: No Data to Display Cardiac Panel: No Data to Display Arterial Blood Gas: No Data to Display Venous Blood Gas: No Data to Display Pancreas Panel: No Data to Display Thyroid Panel: No Data to Display Infectious Disease: Coronavirus (COVID-19)(PCR) Negative (Negative) 06/01/21 09:27 06/01/21 Coronavirus 2019 Source Nasal/Nares 06/01/21 09:27 06/01/21 Blood Cultures: No Data to Display Toxicology Panel: No Data to Display Anesthesia Assessment and Plan Anesthesia History Personal History: No History of Anesthesia Complications Family History: No Family History of Anesthesia Complications Exercise Tolerance Exercise Tolerance: Metabolic Equivalents<4 Pertinent Negatives Pertinent Negatives: No Symptoms of GERD, No Major Cardiovascular Symptoms or Complaints, No Major Pulmonary Symptoms or Complaints and No History of CVA/TIA Cardiac & Pulmonary Exam Cardiac Exam: Normal S1/S2 Heart Sounds Pulmonary Exam: Clear Bilateral Breath Sounds Implantable Cardiac Device Does patient have a Pacemaker or an ICD?: Yes Device Distribution Operations Supervisor:: [employer] for Placement:: Joonib Date of Last Device Interrogation:: 05/13/21 Airway Exam Known Difficult Airway: No Mallampati Class: 1 Mouth Opening: Normal (> 3cm) Thyromental Distance: Greater than 3 cm Neck Range of Motion: Full ROM Neck Circumference: Normal Teeth Condition: Normal Dentition ASA Classification ASA Score: ASA 2 Emergency Case?: No NPO Status NPO Status: NPO Clears >2 hours, Solids >8 hours Anesthesia Plan Resuscitation Status: Full Code Anesthesia Technique: General Anesthesia Airway Planned: Natural Airway Monitors Used: Standard Monitors
[2021-06-03 09:09] VITALS: BMI 34.9
--- NOTE | 2021-06-03 09:24 | STOM_PTH ---
PATIENT: Elaina Huddleston LOC: [facility] U#:[id number] AGE/SX: 81/F ROOM: RE06/03/[address]: Eusebia Tavera MD : 1940 BED: DIS: 06/03/2021 SPEC #: [id number] RECD: 06/03/21 12:47 STATUS: MOE RE #: [id number] ANTONIO: 06/03/21 09:[address]: Eusebia Tavera DEPT: Surgical Specimen RECD BY: Mallory Carcamo ENTERED: 06/03/21 12:49 SP TYPE: STOMACH OTHR DR: Vicenta Freed DO Tissues: 1 - BIOPSY BOWEL 2 - STOMACH BIOPSY 3 - ESOPHAGUS BIOPSY Procedures: GROSS AND MICRO LEVEL 4 Comments: [id number]
[2021-06-03 09:37] VITALS: BP 129/69; PULSE 62; RESP 16; TEMP 36.2; O2SAT 98
[2021-06-03 09:39] VITALS: BP 129/69; PULSE 62; RESP 12; TEMPC 36.3; O2SAT 100
--- NOTE | 2021-06-03 09:39 | W.ANESPOSTOP ---
Postoperative Evaluation Date, Time and Location Date Performed: 06/03/21 Time Performed: 09:39 Patient Location: Day Surgery Unit Vital Signs Most Recent Imported Vital Signs: Most Recent Vital Signs Temp Pulse Resp BP Pulse Ox 36.1 C L 91 H 18 148/87 H 95 06/03/21 08:33 06/03/21 08:33 06/03/21 08:33 06/03/21 08:33 06/03/21 08:33 Most Recent Manually Entered Vital Signs: Adult Blood Pressure: 129/69 Heart Rate: 62 Respirations: 12 Oxygen Saturation (%): 100 Temperature (C): 36.3 C Pain Score (0-10 Scale): 9 Pain Score Most Recent Pain Score: Most Recent Pain Score Pain Level 0 06/03/21 08:33 Assessment Mental Status: Awake (Alert & Oriented to Patient Baseline) Airway and Respiratory Function: Patent airway with normal (patient baseline) respiratory exam Cardiovascular Function: Hemodynamically Stable Hydration Status: Adequately Hydrated Nausea & Vomiting: No Nausea or Vomiting Pain: Pt. Denies Any Pain Peripheral Nerve Block: Patient did not receive a nerve block
[2021-06-03 10:07] VITALS: BP 117/62; PULSE 60; RESP 16; TEMP 36.2; O2SAT 100
== END 2021-06-03 10:34 | disposition home or self-care (01) ==
LOC: SUR 08:19
PROVIDERS: PCP Student in an Organized Health Care Education/Training Program; Visit Provider Surgery
PROC: 0DJ68ZZ Inspection of Stomach, Via Natural or Artificial Opening Endoscopic (ICD-10-PCS; CPT 43235; principal; 2021-06-03 09:30)
DX: K29.70 Gastritis, unspecified, without bleeding (principal); K29.80 Duodenitis without bleeding; K21.00 Gastro-esophageal reflux disease with esophagitis, without bleeding; E11.9 Type 2 diabetes mellitus without complications; K44.9 Diaphragmatic hernia without obstruction or gangrene; J45.909 Unspecified asthma, uncomplicated; E66.9 Obesity, unspecified; I48.91 Unspecified atrial fibrillation; Z95.0 Presence of cardiac pacemaker; K31.89 Other diseases of stomach and duodenum
CPT/HCPCS: 43239; 88305; J2001

== ENCOUNTER 2021-06-09 08:37 | Outpatient (CLI) | payer MEDICARE, SELFPAY ==
--- NOTE | 2021-06-09 08:30 | RT.EKG_ITS ---
APPROVED REPORT Exam: Resting ECG Reason for Exam: tachycardia Patient Location: O HR:98 bpm ECG Measurements Heart Rate 98 AXIS NM 47 P [id number] QRSd 217 QRS -71 QT 459 T 94 QTc 587 Conclusion A-V dual-paced rhythm with some inhibition...atrial and/or vent inhibition No further analysis attempted due to paced rhythm
== END 2021-06-09 08:38 | disposition home or self-care (01) ==
LOC: DI.CARD 08:38
PROVIDERS: PCP Student in an Organized Health Care Education/Training Program; Visit Provider Internal Medicine Cardiovascular Disease
DX: R00.0 Tachycardia, unspecified (principal)
CPT/HCPCS: 93010

== ENCOUNTER → 2021-06-09 10:43 | Outpatient (BNVA) | payer MEDICARE, SELFPAY | PROVIDERS: PCP Student in an Organized Health Care Education/Training Program; Referring Provider Student in an Organized Health Care Education/Training Program; Visit Provider Internal Medicine Cardiovascular Disease | DX: Z95.0 Presence of cardiac pacemaker (principal); I48.91 Unspecified atrial fibrillation; R00.0 Tachycardia, unspecified | CPT/HCPCS: 93005; 99214 ==

== ENCOUNTER → 2021-06-23 09:50 | Outpatient (BNVA) | payer MEDICARE, SELFPAY | PROVIDERS: PCP Student in an Organized Health Care Education/Training Program; Referring Provider Student in an Organized Health Care Education/Training Program; Visit Provider Surgery | DX: Z48.815 Encounter for surgical aftercare following surgery on the digestive system (principal); K29.70 Gastritis, unspecified, without bleeding; K20.90 Esophagitis, unspecified without bleeding | CPT/HCPCS: 99212; 99213 ==

== ENCOUNTER → 2021-07-10 09:44 | Outpatient (BNVA) | payer MEDICARE, SELFPAY | PROVIDERS: PCP Student in an Organized Health Care Education/Training Program; Referring Provider Student in an Organized Health Care Education/Training Program; Visit Provider Surgery | DX: Z48.815 Encounter for surgical aftercare following surgery on the digestive system (principal) | CPT/HCPCS: 99212 ==

== ENCOUNTER 2021-07-14 02:40 | Outpatient (CLI) | payer MEDICARE, SELFPAY ==
[2021-07-14 15:50] LABS: ALT 23 U/L (14-59); AST 16 U/L (15-37); Albumin 3.7 g/dL (3.4-5.0); Alkaline Phosphatase 61 U/L (46-116); Anion Gap 10.8 mmol/L (3-11); BUN 16 mg/dL (7-18); Bilirubin, Total 0.4 mg/dL (0.2-1.0); CO2 26.2 mmol/L (21.0-32.0); CREATININE 0.9 mg/dL (0.55-1.02); Chloride 105 mmol/L (98-107); Estimated GFR 59.94 (mL/min/1.73m2); Glucose 163 mg/dL (74-106); Potassium 4.6 mmol/L (3.5-5.1); Sodium 142 mmol/L (136-145); Total Protein 6.7 g/dL (6.4-8.2)
== END 2021-07-14 02:41 | disposition home or self-care (01) ==
LOC: LBO 02:40
PROVIDERS: Internal Medicine Cardiovascular Disease; PCP Student in an Organized Health Care Education/Training Program; Visit Provider Internal Medicine Cardiovascular Disease
DX: I44.30 Unspecified atrioventricular block (principal); I48.91 Unspecified atrial fibrillation; R00.0 Tachycardia, unspecified; R06.02 Shortness of breath; R07.9 Chest pain, unspecified
CPT/HCPCS: 36415; 80053

== ENCOUNTER 2021-08-06 02:41 | Outpatient (CLI) | payer MEDICARE, SELFPAY ==
--- NOTE | 2021-08-06 10:00 | NS.NUTBLAN_ITS ---
Elaina was referred for diabetes self management. She reports being dx with Dm2 a couple years ago and has been unable to tolerate metformin and most recently Jardiance. Most recent A1C (05/21/21) 7.5% which is at target in view of advanced age. She takes no DM meds at this time. Finger stick today: 197 mg/dl- 4 hours after eating 2 eggo waffles with butter Session today focused on how to balance carbohydrates and other macronutrients at meals. Reviewed typical meals and made adjustments for better glycemic management. Session also focused on how to use glucometer. The lancets she was prescribed are too delicate in view of her declining dexterity. She was able to us a BD microtainer contact activated lancet. Elaina demonstrated back that she can preform accurate finger sticks. Provided Elaina a blood sugar log book and asked her to check her fasting levels and 1 hour after lunch. Follow up appt. scheduled for 10:30 am on 08/12/21 to review blood sugar log.
== END 2021-08-06 02:42 | disposition home or self-care (01) ==
PROVIDERS: PCP Student in an Organized Health Care Education/Training Program; Visit Provider Dietitian, Registered
DX: E11.9 Type 2 diabetes mellitus without complications (principal); Z71.3 Dietary counseling and surveillance
CPT/HCPCS: 97802

== ENCOUNTER 2021-08-08 13:12 | Emergency (ER) | payer MEDICARE, SELFPAY ==
[2021-08-08] VITALS (79 sets, daily range): BP systolic 77–172; BP diastolic 42–149; PULSE 54–165; RESP 0–31; TEMP 36.7; O2SAT 89–99
--- NOTE | 2021-08-08 13:15 | RT.EKG_ITS ---
APPROVED REPORT Exam: Resting ECG Reason for Exam: sob Patient Location: E HR:125 bpm ECG Measurements Heart Rate 125 AXIS TN 152 P [id number] QRSd 288 QRS 0 QT 492 T 112 QTc 712 Conclusion Atrial-paced rhythm Right bundle branch block...QRSd>120, terminal axis(90,270) Anterolateral infarct, acute...ST >0.20mV, V2-V6,I,aVL paced rhythn, wide regular, tachycardia; largely unchanged from prior although wider
--- NOTE | 2021-08-08 13:45 | DI.CT_ITS ---
Exam(s) CT CHEST PE CTA EXAM: CT CHEST PE CTA CLINICAL HISTORY: tachy,sob. TECHNIQUE: Imaging Protocol: CT angiography of the chest was performed using pulmonary embolus alfredo col. Multi planar reconstructions were performed. CONTRAST MATERIAL: Intravenous: Omnipaque 350 Contrast volume: 100 cc COMPARISON: CT,NM,TMT NM MPI REST OR STRESS ONLY from 02/23/2021 FINDINGS: CHEST: PULMONARY ARTERIES: There are no intraluminal filling defects to suggest acute pulmonary emboli. LUNGS: There are bilateral diffuse infiltrates. Also multiple bilateral sub cm nodular densities thr oughout both lung ford. Tiny unilateral left pleural effusion. MEDIASTINUM: Small right hilar lymph nodes noted. No obvious left hilar adenopathy. No prominent me diastinal adenopathy. Visualized thyroid unremarkable. CARDIAC: Mild cardiomegaly. Pacemaker wires.Caliber of the thoracic aorta is within normal limits. R ight ventricle is slightly larger than the left and there is some reflux of contrast into the intrahe patic IVC and intrahepatic veins.. No pericardial effusion. Caliber thoracic aorta is within normal limits. PARTIALLY VISUALIZED UPPERMOST ABDOMEN: Gallbladder surgically absent. No adrenal masses evident. OSSEOUS: No significant osseous lesions.. IMPRESSION: 1. No evidence of acute pulmonary emboli. 2. Extensive subtle bilateral nodular infiltrates, average size 7-8 millimeters. Also non nodular in filtrates. Tiny left pleural effusion. Cannot exclude malignancy here such as metastatic disease. Also infectious/inflammatory etiologies. 3. Cardiomegaly. Pacemaker wires. Enlarged right ventricle. RADIATION DOSE DELIVERED: 437.36mGy.cm Total DLP DATA REPOSITORY: All CT scans at this facility are submitted to the National Radiology Data Registry (NRDR) Dose Index Registry (DIR) with the [employer] (ACR). RADIATION OPTIMIZATION: All CT scans at this facility use at least one of these dose optimization te chniques: automated exposure control; mA and/or kV adjustment per patient size (includes targeted exa ms where dose is matched to clinical indication); or iterative reconstruction.
[2021-08-08 13:50] LABS: Source Nasal/Nares
[2021-08-08 13:55] LABS: Abs Immature Grans 0.02 10^3/uL (0.0-0.06); Absolute Basophil Count 0.03 10^3/uL (0.0-0.2); Absolute Eosinophil Count 0.05 10^3/uL (0.0-0.7); Absolute Lymphocyte Count 1.39 10^3/uL (1.2-3.4); Absolute Monocyte Count 0.53 10^3/uL (0.1-0.8); Basophils % 0.4; Eosinophils % 0.7; HCT 42.5 % (36.0-46.0); Immature Grans % 0.3; Lymphocytes % 19.8; MCH 32.3 pg (27.0-33.0); MCHC 32.9 % (32.0-36.0); MCV 97.9 fL (80-95); MPV 12.1 fL (8.0-11.0); Monocytes % 7.5; Neutrophils % 71.3; Platelet Count 199 10^3/uL (130-400); RBC 4.34 10^6/uL (3.93-5.22); RDW 13.2 % (11.7-14.6); RDW-SD 48.2 fL; WBC 7.02 10^3/uL (4.4-10.8)
[2021-08-08 14:09] LABS: INR 1.2 (0.9-1.1); PTT Activated 25.1 sec (21.0-27.5); Prothrombin Time 12.4 sec (9.3-11.0)
[2021-08-08 14:18] LABS: ALT 52 U/L (14-59); AST 41 U/L (15-37); Albumin 3.8 g/dL (3.4-5.0); Alkaline Phosphatase 67 U/L (46-116); Anion Gap 11.8 mmol/L (3-11); BUN 30 mg/dL (7-18); Bilirubin, Total 0.6 mg/dL (0.2-1.0); CO2 23.2 mmol/L (21.0-32.0); CREATININE 1.2 mg/dL (0.55-1.02); Calcium 9.3 mg/dL (8.5-10.1); Chloride 103 mmol/L (98-107); Estimated GFR 43.01 (mL/min/1.73m2); Glucose 247 mg/dL (74-106); Magnesium 1.8 mg/dL (1.8-2.4); NT-proBNP 4479 pg/mL (<300); Potassium 4.3 mmol/L (3.5-5.1); Sodium 138 mmol/L (136-145); TSH (W/Ref FT4) 0.63 uIU/mL (0.36-3.74); Total Protein 7.1 g/dL (6.4-8.2); Troponin I < 50 ng/L (<or=60)
--- NOTE | 2021-08-08 14:24 | ED.GENADUL_ITS ---
Discharge Plan Disposition Patient Disposition: STILL A PATIENT Condition: Serious Discharge Details Chief Complaint: SOB Primary Care Provider: Vicenta Freed ED Provider: Edin Pollock Home Meds and New Rx's Prescriptions: No Action levothyroxine 112 mcg tablet 112 mcg PO DAILY Qty: 90 3RF (DME) compress.stocking,knee,reg,lrg Misc See Rx Instructions .ROUTE .MEDSUPPLY Qty: 1 0RF Rx Instructions: As directed, 20mmHg-30mmHg (pt unable to tolerate higher pressure) Mylanta Coat-Cool 1,200 mg-270 mg -80 mg/10 mL suspension PO 0RF (DME) lancing device with lancets [OneTouch Delica Plus Lanc Dev] Kit See Rx Instructions .ROUTE .MEDSUPPLY Qty: 1 0RF Rx Instructions: Monitor BS 2-3x/wk; E11.9, to achieve A1C under 7%, T 2 DM (DME) lancets [OneTouch Delica Plus Lancet] 33 gauge misc See Rx Instructions .ROUTE .MEDSUPPLY Qty: 100 3RF Rx Instructions: Monitor BS 2-3x/wk; E11.9, to achieve A1C under 7%, T 2 DM (DME) blood-glucose meter [OneTouch Verio Meter] Misc See Rx Instructions .ROUTE .MEDSUPPLY Qty: 1 0RF Rx Instructions: Monitor BS 2-3x/wk; E11.9, to achieve A1C under 7%, T 2 DM (DME) OneTouch Verio test strips Strip See Rx Instructions .ROUTE .MEDSUPPLY Qty: 100 3RF Rx Instructions: Monitor BS 2-3x/wk; E11.9, to achieve A1C under 7%, T 2 DM flecainide 150 mg tablet 150 mg PO BID Qty: 180 1RF Flovent HFA 110 mcg/actuation HFA aerosol inhaler 2 puff Inhalation BID Qty: 3 3RF Rx Instructions: Rinse mouth after use metoprolol tartrate 25 mg tablet 12.5 mg PO BID Qty: 90 3RF Rx Instructions: 0.5 tab bid Eliquis 5 mg tablet 5 mg PO BID Qty: 180 6RF fluconazole [Diflucan] 150 mg tablet 150 mg PO Q3D Qty: 2 1RF Hold Instructions: Home Medication placed on hold at Doctor's office Rx Instructions: Do not take @ same time as flecainide albuterol sulfate [ProAir HFA] 90 mcg/actuation HFA aerosol inhaler 2 puff Inhalation Q4H PRN PRN (Reason: shortness of breath or wheezing) Qty: 3 1RF Jardiance 10 mg tablet 10 mg PO DAILY Qty: 90 3RF Hold Instructions: Home Medication placed on hold at Doctor's office Rx Instructions: Continue pantoprazole [Protonix] 40 mg tablet,delayed release (DR/EC) 40 mg PO DAILY 0RF Rx Instructions: 07/29/[address] [facility] GASTRO STOPPED OMEPRAZOLE AND ORDERED PROTONIX JWO multivitamin 1 EACH capsule 1 ea PO DAILY 0RF acetaminophen [Mapap Extra Strength] 500 MG tablet 1,000 mg PO TID PRN PRNQty: 120 0RF Medical Decision Making 81-year-old female presents to the ER reporting worsening dyspnea with exertion of the past couple of weeks, worse so today. Patient is able to speak in full sentences, O2 sat is 99% on room air but she is tachycardic in the 120s, lungs diminished bilateral bases, minimal pitting edema bilateral lower extremities. Examination concerning for PE, CHF, less likely ACS or infectious process. Question pacemaker functionality, plan to interrogate pacemaker. Given low suspicion for ACS, will not initiate aspirin. Initial blood pressure of 128/93, no evidence of hypotension, given concern for CHF, will hold any fluid bolus. Case discussed with Dr. Arellano, who personally evaluated the patient, please see his note. Laboratory values reveal a white blood cell count of 7.02 hemoglobin 14.0 hematocrit 42.5 platelet count 199. INR 1.2, D-dimer elevated at 924. Electrolytes unremarkable. Creatinine 1.2 with a GFR of 43.01. Glucose 247, initial troponin less than 50. BNP 4479. COVID-negative. TSH is 0.63. Watching her cardiac rn, heart rate dropped into the 80s and could see good pacer spikes. At that time blood pressures dropped into the 80s over 60s. Within a matter of 10-15 seconds heart rate back into the 120s, blood pressure back into the low 100s over 70s Renal function slightly decreased from baseline. Multiple repeat blood pressures revealed 102/71, 79/51, 107/67. Patient still satting in the mid 90s without difficulty. Given her hypotension, plan is to give 500 cc of IV fluid All pertinent information was faxed to [facility] and requested a consult at 1410. I received a call from [facility] at 1449, after the interrogation everything appears to be functioning normally. Good atrial capture. The heart rate of 130 is the maximum tracking rate. They plan to fax us the full report. This report will also be faxed to [facility] cardiology. CTA obtained, awaiting official read. 1524, I received a call from [facility]. They report there is a long cardiology wait and they will be calling us back as soon as possible. They state that they cannot accept the patient today but could likely except tomorrow. CTA reveals no evidence of pulmonary embolism. Small effusions with coarse interstitial changes and nodular opacities with airspace disease seen in both lungs. Consider infectious versus inflammatory process. Follow-up recommended. At time of signout, awaiting cardiology consultation, likely need for IV diuresis and admission whether that be here at our facility or transfer to a higher level of care. Medical Records Medical records reviewed: Yes I reviewed the patient's medical records. Imaging Data Radiologic Study: Attestation: I personally reviewed and interpreted this imaging study as follows: Imaging: CT Scan Radiologist's impression: PROCEDURE INFORMATION: Exam: CTA Chest With Contrast Exam date and time: 08/08/2021 2:40 PM Age: 81 years old Clinical indication: Shortness of breath and other: Tachycardia TECHNIQUE: Imaging protocol: Computed tomographic angiography of the chest with contrast. 3D rendering (Not supervised by radiologist): MIP and/or 3D reconstructed images were created by the technologist. Radiation optimization: All CT scans at this facility use at least one of these dose optimization techniques: automated exposure control; mA and/or kV adjustment per patient size (includes targeted exams where dose is matched to clinical indication); or iterative reconstruction. Contrast material: OMNIPAQUE 350; Contrast volume: 100 ml; Contrast route: INTRAVENOUS (IV); COMPARISON: CT THORAX CTA 09/13/2020 8:50 PM FINDINGS: Tubes, catheters and devices: Left-sided pacemaker noted. Pulmonary arteries: Normal. No pulmonary emboli. Aorta: Unremarkable. No aortic aneurysm. No aortic dissection. Lungs: There are some coarse interstitial markings seen in the lower lobes particularly with hazy illdefined airspace opacities and nodular densities particularly in the lower lobes with more mild right upper lobe involvement. Pleural spaces: There are small bilateral pleural effusions. Heart: Cardiomegaly. Lymph nodes: Unremarkable. No enlarged lymph nodes.Gallbladder and bile ducts: Status post cholecystectomy. Bones/joints: Unremarkable. No acute fracture. Soft tissues: Unremarkable. Other findings: There is some mild right infrahilar fullness. IMPRESSION: 1. No evidence for pulmonary embolus. 2. Small effusions with coarse interstitial changes and nodular opacities with airspace disease seen in both lungs. Consider infectious versus inflammatory process. Follow-up recommended. Lab Data Lab results reviewed: Yes I reviewed the patient's lab results. Labs: Laboratory Tests Range/Units 08/08/21 08/08/21 08/08/21 13:40 13:45 13:45 WBC (4.4-10.8) 10^3/uL 7.02 RBC (3.93-5.22) 10^6/uL 4.34 Hgb (11.2-15.7) g/dL 14.0 Hct (36.0-46.0) % 42.5 MCV (80-95) fL 97.9 H MCH (27.0-33.0) pg 32.3 MCHC (32.0-36.0) % 32.9 RDW (11.7-14.6) % 13.2 Plt Count (130-400) 10^3/uL 199 MPV (8.0-11.0) fL 12.1 H Immature Gran % 0.3 Neutrophils % 71.3 Lymphocytes % 19.8 Monocytes % 7.5 Eosinophils % 0.7 Basophils % 0.4 Nucleated RBC % (0.0-0.3) % 0.0 Absolute Neutrophils (1.2-6.7) 10^3/uL 5.00 Absolute Lymphocytes (1.2-3.4) 10^3/uL 1.39 Absolute Monocytes (0.1-0.8) 10^3/uL 0.53 Absolute Eosinophils (0.0-0.7) 10^3/uL 0.05 Absolute Basophils (0.0-0.2) 10^3/uL 0.03 PT (9.3-11.0) sec INR (0.9-1.1) APTT (21.0-27.5) sec D-Dimer (<500) ng/mlFEU Sodium (136-145) mmol/L 138 Potassium (3.5-5.1) mmol/L 4.3 Chloride (98-107) mmol/L 103 Carbon Dioxide (21.0-32.0) mmol/L 23.2 Anion Gap (3-11) mmol/L 11.8 H BUN (7-18) mg/dL 30 H Creatinine (0.55-1.02) mg/dL 1.2 H Estimated GFR/1.73 m2 (mL/min/1.73m2) 43.01 Glucose (74-106) mg/dL 247 H Calcium (8.5-10.1) mg/dL 9.3 Magnesium (1.8-2.4) mg/dL 1.8 Total Bilirubin (0.2-1.0) mg/dL 0.6 AST (15-37) U/L 41 H ALT (14-59) U/L 52 Alkaline Phosphatase (46-116) U/L 67 Troponin I (<or=60) ng/L < 50 NT-Pro-B Natriuret Pep (<300) pg/mL 4479 H Total Protein (6.4-8.2) g/dL 7.1 Albumin (3.4-5.0) g/dL 3.8 TSH Cancelled 0.63 COVID-19 Source SARS-CoV-2 (PCR) (Negative) Range/Units 08/08/21 08/08/21 13:45 13:45 WBC (4.4-10.8) 10^3/uL RBC (3.93-5.22) 10^6/uL Hgb (11.2-15.7) g/dL Hct (36.0-46.0) % MCV (80-95) fL MCH (27.0-33.0) pg MCHC (32.0-36.0) % RDW (11.7-14.6) % Plt Count (130-400) 10^3/uL MPV (8.0-11.0) fL Immature Gran % Neutrophils % Lymphocytes % Monocytes % Eosinophils % Basophils % Nucleated RBC % (0.0-0.3) % Absolute Neutrophils (1.2-6.7) 10^3/uL Absolute Lymphocytes (1.2-3.4) 10^3/uL Absolute Monocytes (0.1-0.8) 10^3/uL Absolute Eosinophils (0.0-0.7) 10^3/uL Absolute Basophils (0.0-0.2) 10^3/uL PT (9.3-11.0) sec 12.4 H INR (0.9-1.1) 1.2 H APTT (21.0-27.5) sec 25.1 D-Dimer (<500) ng/mlFEU 924 H Sodium (136-145) mmol/L Potassium (3.5-5.1) mmol/L Chloride (98-107) mmol/L Carbon Dioxide (21.0-32.0) mmol/L Anion Gap (3-11) mmol/L BUN (7-18) mg/dL Creatinine (0.55-1.02) mg/dL Estimated GFR/1.73 m2 (mL/min/1.73m2) Glucose (74-106) mg/dL Calcium (8.5-10.1) mg/dL Magnesium (1.8-2.4) mg/dL Total Bilirubin (0.2-1.0) mg/dL AST (15-37) U/L ALT (14-59) U/L Alkaline Phosphatase (46-116) U/L Troponin I (<or=60) ng/L NT-Pro-B Natriuret Pep (<300) pg/mL Total Protein (6.4-8.2) g/dL Albumin (3.4-5.0) g/dL TSH COVID-19 Source Nasal/Nares SARS-CoV-2 (PCR) (Negative) Negative ECG Data Attestation: I personally reviewed and interpreted this ECG (s) as follows: Interpretation: Please see official report by Dr. Arellano. Atrial paced rhythm, heart rate of 125. Right bundle branch block. No dynamic changes when compared to recent EKG performed at cardiology appointment on 06-09 HPI General Mode of arrival: ambulatory . Date/Time Provider Initiated Documentation: 08/08/21 13:14 . Limitations to Documentation: no limitations . Information obtained by: patient . HPI Narrative: This is a an 81-year-old female, past surgical history of pacemaker, A. fib, atrioventricular block, reactive airway disease, diabetes, thyroid disease, anticoagulated, presenting to the ER for 2 to 3 weeks of worsening dyspnea with exertion, much worse today. Patient denies recent illness or trauma. She denies headache, fever, chest pain, cough, abdominal pain, nausea, vomiting. Reports chronic low back pain. Denies pain or swelling in her lower extremities. Patient states that she was seen by her service team leader a month or so ago and is scheduled to be seen again in the next couple of weeks. Reports that she is taking all of her medications as directed. Reports that her pacemaker is approximately 8 years old. Related Data Home Medications Medication Instructions Recorded Confirmed multivitamin 1 ea PO DAILY 11/05/12 08/08/21 acetaminophen 500 mg tablet (Mapap 1,000 mg PO TID PRN PRN #120 tab 12/03/16 08/08/21 Extra Strength) metoprolol tartrate 25 mg tablet 12.5 mg PO BID #90 tab 07/23/20 08/08/21 levothyroxine 112 mcg tablet 112 mcg PO DAILY #90 tab-cap 02/19/21 08/08/21 compress.stocking,knee,reg,lrg #1 ea 03/20/21 07/24/21 apixaban 5 mg tablet (Eliquis) 5 mg PO BID #180 tab-cap 06/15/21 08/08/21 calcium carb 1,200 mg-mag hydrox ml PO 06/23/21 07/24/21 270 mg-simeth 80 mg/10 mL oral susp (Mylanta Coat-Cool) albuterol sulfate 90 mcg/actuation 2 puff INHALATION Q4H PRN PRN #3 06/24/21 08/08/21 aerosol inhaler (ProAir HFA) inhaler empagliflozin 10 mg tablet 10 mg PO DAILY #90 tab 06/24/21 08/08/21 (Jardiance) fluconazole 150 mg tablet 150 mg PO Q3D #2 tab 06/24/21 08/08/21 (Diflucan) blood sugar diagnostic (OneTouch #100 ea 07/24/21 08/08/21 Verio test strips) blood-glucose meter (OneTouch #1 ea 07/24/21 Verio Meter) flecainide 150 mg tablet 150 mg PO BID #180 tab-cap 07/24/21 08/08/21 fluticasone propionate 110 2 puff INHALATION BID #3 inh 07/24/21 08/08/21 mcg/actuation HFA aerosol inhaler (Flovent HFA) lancets 33 gauge (GatherTouch Delica #100 ea 07/24/21 Plus Lancet) lancing device with lancets kit #1 ea 07/24/21 (Flintuch Delica Plus Lanc Dev) pantoprazole 40 mg tablet,delayed 40 mg PO DAILY 07/29/21 08/08/21 release (Protonix) Previous Rx's Medication Instructions Recorded acetaminophen 500 mg tablet (Mapap 1,000 mg PO TID PRN PRN #120 tab 12/03/16 Extra Strength) metoprolol tartrate 25 mg tablet 12.5 mg PO BID #90 tab 07/23/20 levothyroxine 112 mcg tablet 112 mcg PO DAILY #90 tab-cap 02/19/21 compress.stocking,knee,reg,lrg #1 ea 03/20/21 apixaban 5 mg tablet (Eliquis) 5 mg PO BID #180 tab-cap 06/15/21 albuterol sulfate 90 mcg/actuation 2 puff INHALATION Q4H PRN PRN #3 06/24/21 aerosol inhaler (ProAir HFA) inhaler empagliflozin 10 mg tablet 10 mg PO DAILY #90 tab 06/24/21 (Jardiance) fluconazole 150 mg tablet 150 mg PO Q3D #2 tab 06/24/21 (Diflucan) blood sugar diagnostic (OneTouch #100 ea 07/24/21 Verio test strips) blood-glucose meter (OneTouch #1 ea 07/24/21 Verio Meter) flecainide 150 mg tablet 150 mg PO BID #180 tab-cap 07/24/21 fluticasone propionate 110 2 puff INHALATION BID #3 inh 07/24/21 mcg/actuation HFA aerosol inhaler (Flovent HFA) lancets 33 gauge (OneTouch Delica #100 ea 07/24/21 Plus Lancet) lancing device with lancets kit #1 ea 07/24/21 (Flintuch Delica Plus Lanc Dev) Allergies Allergy/AdvReac Type Severity Reaction Status Date / Time ranitidine Allergy Severe WHEEZING Verified 08/08/21 13:26 cefadroxil Allergy Mild Verified 08/08/21 13:26 ciprofloxacin AdvReac Intermediate WEAKNESS Verified 08/08/21 13:26 pneumococcal 13-valent AdvReac Intermediate temp and Verified 08/08/21 13:26 conjugate to body aches [From Prevnar 13 (PF)] sucralfate AdvReac Intermediate N/V Verified 08/08/21 13:26 General Stated Complaint: SOB DEXTER: 2 Review of Systems Constitutional Constitutional: Denies fever(s), Denies headache(s) and Reports weakness (Gener alized) ENT Ears, Nose, Mouth, and Throat: Denies headache(s) and Denies neck pain Cardiovascular Cardiovascular: Denies chest pain, Reports dyspnea and Reports dyspnea on exertion Respiratory Respiratory: Denies cough, Reports dyspnea and Reports dyspnea on exertion Gastrointestinal Gastrointestinal: Denies abdominal pain, Denies nausea and Denies vomiting Musculoskeletal Musculoskeletal: Reports back pain and Denies neck pain Integumentary/Breasts Skin/Breast: Denies rash Neurologic Neurologic: Denies headache(s) and Reports weakness (Generalized) Hematologic/Lymphatic Hematologic/Lymphatic: Reports easy bleeding and Reports easy bruising PFSH All Active Problems Edema (Acute) LE edema , R>L .. notable, possibly 2' Jardiance intolerance, but possible lymphedema (?) Medication intolerance (Acute) Unable to tolerate Jardiance (candidiasis!), Metformin. Gastroesophageal reflux disease (Acute 07/07/12) Managed with PPI for years, worsening x 2-3 months. Now associated with LUQ tenderness, 05/26/17. []H.pylori [] U/S LUQ ik IMPROVED with weight loss, 06/02.19, ik EGD rescheduled with Dr. Escobar (2' Bock not yet taking appts @ [facility]), 05/26/17 .. Consulted, EGD sched for 06/29/17. note: s/p Singh, hernia repair, and esoph dilation (2013) Atrophic gastritis without mention of hemorrhage (Acute 07/07/12) History of hiatal hernia (Acute) Type 2 diabetes mellitus (Acute) Recent A1C increase, from [id number] to DM this past year.. Vulvovaginal candidiasis (Acute) 2' Jardiance .. trial monostat or diflucan . STOP Jardiance if janae returns. Esophagitis determined by biopsy (Acute) Tachycardia (Acute) Atrioventricular pacing seen on electrocardiogram (Acute) Pacemaker (Acute 09/16/17) Dual lead Medtronic pacemaker Adapta .. Placed 2013, Dr. Edin Robles. 99Medtronic dual lead pacemaker implanted 12/04/2013 .. Adapta ADDRO1 [id number] .. RA Medtronic [id number], 11/2013.. RV [id number] 12/04/2013)) Reactive airway disease (Chronic) Dysphagia, unspecified (Acute 07/07/12) EGD KD: mild esophagitis 10/[address] Ragsdale 09/23/[address] Duncan, [facility], [place], [place]. Impression: Gerd Dysphagia. Rule out secondary to esophageal ulcer,dysmotility, or from perhaps a failing Singh. recommeded: Upper GI Gerd protocaol discussed w/ pt. panel 2,B12 If pt continues sx, may want to repeat upper endoscopy. Plans to see her back in follw[place]. Atrioventricular block (Acute 07/07/12) pacemaker placement 12/04/2013; 5 sec asystoles last interrogation, 03/2017.. Placing referral since Dr. Sweeney retired and she may need cardio eval pre-GI surgery, ik, 09/01/17 Atrial fibrillation (Acute 07/06/11) normal echo and cath 2008; flecanide Rx; apixiban; echo 09/2013 EF 60%.. 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 A1C goal 7.5 ... 7.1 today, 08/07/20. 6.8/6.9 in 11/2016. A1C 6.5 post weight loss and focused effort on reducing carbs/sweets. 06/02/18, ik A1C remains @ 6.5 08/2018, good job! 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 [facility] q6m x1 year, then annually. --[facility] [place] 06/2016 Shakira Diaz MD Post-radiation association with new abd pain (?), ik, 05/26/17 Essential hypertension (01/18/13) FRS 13% .. Well controlled, 116/70 06/02/18, ik Exertional dyspnea (01/28/15) Family hx-breast malignancy (11/13/12) SISTER IN 60s High risk medications (not anticoagulants) long-term use Flecainide - started by Dr. Douglass History of postmenopausal bleeding Hot flashes Hot Flashes x 6 mos, 06/13/19. Hyperlipidemia (07/07/12) Hypomagnesemia Noted @ ED, 02/2021 .. replenished. Monitor [ ] Hypothyroidism (01/02/13) TSH 2.43 (05/2017) vs. >9 (02/2017). Cont @ same 88mcg. Impaired glucose tolerance (03/10/12) Leg edema Leg weakness With standing .. Hx lumbar stenosis .. Hx spinal injection (?) Macular pucker Multinodular goiter (12/19/15) Muscle spasm of left shoulder area Trapezius MM Spasm .. Neurogenic pain of right lower extremity (09/19/15) Osteoarth NOS-unspec (07/06/11) Pelvic pain (02/07/13) Piriformis syndrome of right side Postnasal drip (01/09/15) Primary osteoarthritis of right knee (01/10/17) s/p RT TKR Fall 2018 Right lumbar radiculopathy Sensorineural hearing loss of both ears Sensorineural hearing loss, bilateral (12/28/13) Spinal stenosis of lumbar region Symptomatic bradycardia Thyroid nodule (01/28/15) 01/01/15 US 4mm nodule isthmus 05/15/15 US 4.5 nodule isthmus, ?7x5 nodule right Trochanteric bursitis, right hip (05/19/16) Urge incontinence Surgical History Cardiac Cath, 2008 Cholecystectomy Colonoscopy - IV Sedation (03/17/16) EGD - MAC (06/29/17) Extraction of cataract B/L Hernia, hiatal (banding) History of Surgical Procedure a. Cholecystectomy. b. Bilateral cataract surgery. c. Hiatal hernia repair 2008. d. Esophagus stretching 2013 - Dr. Ragsdale. e. Pacemaker 12/04/2013 Hyseterectomy, Total Laparoscopic w/ BSO (07/01/16) +Endometrial cancer Pacemaker (12/04/13) Replacement of total knee joint (12/03/16) R knee Dr Del Cid sentinal lymph node dissection (07/01/16) NEG for mets from endometrium Status post right knee replacement Dr. Del Cid, Ortho. She is happy with knee, able to step down from sidewalk w/o fear per 03/02/18 appt discussion. COntinues to do well; seeing ortho for possible neuropathic pain (outer rt calf). upper GI Series (10/05/17) for sx of epigastric dysphagia,GERD. Done by Dr. Duncan. Impression: Moderate sized Hiatal Hernia. Marked gastroesophageal reflux. Family History Mother , old age at age 98. No problems noted. Father , Heart disease at age 64. Heart disease [place] Sister , Colon Ca Personal history of malignant neoplasm Sister , Heart problems at age 72. Personal history of malignant neoplasm Breast cancer, dx'ed in her 60s Heart disease Sister Hypertensive disorder, systemic arterial Diabetes Sister Diabetes Sister Hypertensive disorder, systemic arterial Brother , Parkinson's at age 75. Personal history of malignant neoplasm Brother Parkinson's disease Brother , Heart condition at age 62. Hypertensive disorder, systemic arterial Diabetes Brother Hypertensive disorder, systemic arterial Diabetes Social History Smoking/Tobacco Use Status: Never Smoking risk assessment performed?: Yes Alcohol Intake: never Drug use: Never Substance use type: does not use Adopted: No Foster care: No Housing: apartment Number of Children: 0 number of grandchildren: 0 Communication Needs: Corrective Lenses current occupation: retired from [employer] Pets and animals: No Current gender identity: female What is your relationship status?: Panel score (0-1 are the most socially isolated patients): 0 Seatbelt use: always Working smoke detector in home: Yes Fire extinguisher in home: Yes Carbon monox detector in home: Yes Firearms in home: No Do you feel safe at home: Yes Do you feel safe in your relationship?: Yes Exam Const General: cooperative, healthy appearing, comfortable and no acute distress Orientation: alert, awake and oriented x3 HENMT Head: normal to inspection, normocephalic and atraumatic Mouth: moist mucous membranes abnormal (Slightly dry) Eyes General: appearance normal, both eyes and all related structures Conjunctivae: conjunctivae normal Neck Neck: normal visual inspection, full ROM, trachea midline and supple Resp Effort & Inspection: normal respiratory effort and able to speak in complete sentences Auscultation: diminished lung sounds bilaterally in the lower lung ford Cardio Rate: tachycardic (120's) Rhythm: regular rhythm GI Palpation: soft and nontender Back/Spine/Pelvis Back: No no CVA tenderness and No back tenderness Skin General skin exam: no rashes or lesions noted Neuro General: patient alert, patient awake, patient oriented x3, moves all extremities and no focal motor deficits Cognition: normal cognition Speech: speech normal Gait: normal gait Motor: muscle tone normal throughout Sensory Exam: no sensory deficits noted Extrem General: full ROM, capillary refill normal and pedal edema bilaterally (Minimal, pitting) Psych Appearance: grossly normal Mental Status: mental status grossly normal Course Vital Signs Vital signs: Vital Signs Temperature 36.7 C 08/08/21 13:22 Pulse 122 H 08/08/21 13:22 Respiratory Rate 15 08/08/21 13:22 Blood Pressure 128/93 H 08/08/21 13:22 Pulse Oximetry 99 08/08/21 13:22 Temperature 36.7 C 08/08/21 13:22 Temperature Source Skin 08/08/21 13:22 Pulse 113 H 08/08/21 13:46 Pulse 130 H 08/08/21 13:50 Respiratory Rate 16 08/08/21 13:50 Respiratory Effort Labored 08/08/21 13:45 Respiratory Depth Normal 08/08/21 13:45 Respiratory Pattern Normal 08/08/21 13:45 Blood Pressure 121/96 H 08/08/21 13:46 Blood Pressure Mean 99 08/08/21 13:46 Blood Pressure Position Supine 08/08/21 13:22 Pulse Oximetry 98 08/08/21 13:50 Oxygen Delivery Method Room Air 08/08/21 13:22 Oxygen Flow Rate 0 08/08/21 13:22 Pain Level 0 08/08/21 13:22 Lab/Test Results Lab/Test Results: Laboratory Tests Range/Units 08/08/21 08/08/21 08/08/21 13:40 13:45 13:45 WBC (4.4-10.8) 10^3/uL 7.02 RBC (3.93-5.22) 10^6/uL 4.34 Hgb (11.2-15.7) g/dL 14.0 Hct (36.0-46.0) % 42.5 MCV (80-95) fL 97.9 H MCH (27.0-33.0) pg 32.3 MCHC (32.0-36.0) % 32.9 RDW (11.7-14.6) % 13.2 Plt Count (130-400) 10^3/uL 199 MPV (8.0-11.0) fL 12.1 H Immature Gran % 0.3 Neutrophils % 71.3 Lymphocytes % 19.8 Monocytes % 7.5 Eosinophils % 0.7 Basophils % 0.4 Nucleated RBC % (0.0-0.3) % 0.0 Absolute Neutrophils (1.2-6.7) 10^3/uL 5.00 Absolute Lymphocytes (1.2-3.4) 10^3/uL 1.39 Absolute Monocytes (0.1-0.8) 10^3/uL 0.53 Absolute Eosinophils (0.0-0.7) 10^3/uL 0.05 Absolute Basophils (0.0-0.2) 10^3/uL 0.03 PT (9.3-11.0) sec INR (0.9-1.1) APTT (21.0-27.5) sec Sodium (136-145) mmol/L 138 Potassium (3.5-5.1) mmol/L 4.3 Chloride (98-107) mmol/L 103 Carbon Dioxide (21.0-32.0) mmol/L 23.2 Anion Gap (3-11) mmol/L 11.8 H BUN (7-18) mg/dL 30 H Creatinine (0.55-1.02) mg/dL 1.2 H Estimated GFR/1.73 m2 (mL/min/1.73m2) 43.01 Glucose (74-106) mg/dL 247 H Calcium (8.5-10.1) mg/dL 9.3 Magnesium (1.8-2.4) mg/dL 1.8 Total Bilirubin (0.2-1.0) mg/dL 0.6 AST (15-37) U/L 41 H ALT (14-59) U/L 52 Alkaline Phosphatase (46-116) U/L 67 Troponin I (<or=60) ng/L < 50 NT-Pro-B Natriuret Pep (<300) pg/mL 4479 H Total Protein (6.4-8.2) g/dL 7.1 Albumin (3.4-5.0) g/dL 3.8 TSH Cancelled 0.63 COVID-19 Source Range/Units 08/08/21 08/08/21 13:45 13:45 WBC (4.4-10.8) 10^3/uL RBC (3.93-5.22) 10^6/uL Hgb (11.2-15.7) g/dL Hct (36.0-46.0) % MCV (80-95) fL MCH (27.0-33.0) pg MCHC (32.0-36.0) % RDW (11.7-14.6) % Plt Count (130-400) 10^3/uL MPV (8.0-11.0) fL Immature Gran % Neutrophils % Lymphocytes % Monocytes % Eosinophils % Basophils % Nucleated RBC % (0.0-0.3) % Absolute Neutrophils (1.2-6.7) 10^3/uL Absolute Lymphocytes (1.2-3.4) 10^3/uL Absolute Monocytes (0.1-0.8) 10^3/uL Absolute Eosinophils (0.0-0.7) 10^3/uL Absolute Basophils (0.0-0.2) 10^3/uL PT (9.3-11.0) sec 12.4 H INR (0.9-1.1) 1.2 H APTT (21.0-27.5) sec 25.1 Sodium (136-145) mmol/L Potassium (3.5-5.1) mmol/L Chloride (98-107) mmol/L Carbon Dioxide (21.0-32.0) mmol/L Anion Gap (3-11) mmol/L BUN (7-18) mg/dL Creatinine (0.55-1.02) mg/dL Estimated GFR/1.73 m2 (mL/min/1.73m2) Glucose (74-106) mg/dL Calcium (8.5-10.1) mg/dL Magnesium (1.8-2.4) mg/dL Total Bilirubin (0.2-1.0) mg/dL AST (15-37) U/L ALT (14-59) U/L Alkaline Phosphatase (46-116) U/L Troponin I (<or=60) ng/L NT-Pro-B Natriuret Pep (<300) pg/mL Total Protein (6.4-8.2) g/dL Albumin (3.4-5.0) g/dL TSH COVID-19 Source Nasal/Nares Critical Care Time Critical Care Time Critical Care Time: Yes Total Critical Care Time: 35 Attestation: Upon my evaluation, this patient had a high probability of clinically significant, life-threatening deterioration due to their current medical conditions, which required my direct attention, intervention, and personal management. I have personally provided greater than 30 minutes of critical care time exclusive of the time spend on separately billable procedures. Time includes obtaining a history, examining the patient, pulse oximetry, review of laboratory data, radiology results, discussion with consultants, arranging urgent treatment with development of a management plan, evaluation of patient's response to treatment, and monitoring for potential decompensation. Interventions were performed as documented above.
[2021-08-08 14:27] LABS: D-Dimer 924 ng/mlFEU (<500)
[2021-08-08 14:37] LABS: COVID-19 PCR Negative (Negative)
[2021-08-08] MEDS: Omnipaque 350 MG/ML 100 ML BTL IJ (14:46)
[2021-08-08] MEDS: Normal Saline Flush 10 ML SYR IVP (14:46)
[2021-08-08] MEDS: Normal Saline 250 ML 500 ML IV (15:06)
--- NOTE | 2021-08-08 15:40 | DI.VRAD_ITS ---
PROCEDURE INFORMATION: Exam: CTA Chest With Contrast Exam date and time: 08/08/2021 2:40 PM Age: 81 years old Clinical indication: Shortness of breath and other: Tachycardia TECHNIQUE: Imaging protocol: Computed tomographic angiography of the chest with contrast. 3D rendering (Not supervised by radiologist): MIP and/or 3D reconstructed images were created by the technologist. Radiation optimization: All CT scans at this facility use at least one of these dose optimization techniques: automated exposure control; mA and/or kV adjustment per patient size (includes targeted exams where dose is matched to clinical indication); or iterative reconstruction. Contrast material: OMNIPAQUE 350; Contrast volume: 100 ml; Contrast route: INTRAVENOUS (IV); COMPARISON: CT THORAX CTA 09/13/2020 8:50 PM FINDINGS: Tubes, catheters and devices: Left-sided pacemaker noted. Pulmonary arteries: Normal. No pulmonary emboli. Aorta: Unremarkable. No aortic aneurysm. No aortic dissection. Lungs: There are some coarse interstitial markings seen in the lower lobes particularly with hazy ill-defined airspace opacities and nodular densities particularly in the lower lobes with more mild right upper lobe involvement. Pleural spaces: There are small bilateral pleural effusions. Heart: Cardiomegaly. Lymph nodes: Unremarkable. No enlarged lymph nodes. Gallbladder and bile ducts: Status post cholecystectomy. Bones/joints: Unremarkable. No acute fracture. Soft tissues: Unremarkable. Other findings: There is some mild right infrahilar fullness. IMPRESSION: 1. No evidence for pulmonary embolus. 2. Small effusions with coarse interstitial changes and nodular opacities with airspace disease seen in both lungs. Consider infectious versus inflammatory process. Follow-up recommended. Dictated and Authenticated by: Lucy Mills MD. Ordering:ARABELLA Jesus MD
[2021-08-08] MEDS: Furosemide 20 MG/2 ML VIAL IVP ×2 (16:16→18:36)
[2021-08-08] MEDS: Metoprolol 5 MG/5 ML VIAL IVP (17:05)
[2021-08-08 17:07] LABS: Troponin I < 50 ng/L (<or=60)
[2021-08-08] MEDS: Furosemide 20 MG/2 ML VIAL (18:36)
--- NOTE | 2021-08-08 19:08 | W.ED.GENAD ---
Discharge Plan Disposition Patient Disposition: STILL A PATIENT Condition: Serious Discharge Details Primary Care Provider: Vicenta Freed ED Provider: Mallory Castellon Home Meds and New Rx's Prescriptions: No Action levothyroxine 112 mcg tablet 112 mcg PO DAILY Qty: 90 3RF (DME) compress.stocking,knee,reg,lrg Misc See Rx Instructions .ROUTE .MEDSUPPLY Qty: 1 0RF Rx Instructions: As directed, 20mmHg-30mmHg (pt unable to tolerate higher pressure) Mylanta Coat-Cool 1,200 mg-270 mg -80 mg/10 mL suspension PO 0RF (DME) lancing device with lancets [OneTouch Delica Plus Lanc Dev] Kit See Rx Instructions .ROUTE .MEDSUPPLY Qty: 1 0RF Rx Instructions: Monitor BS 2-3x/wk; E11.9, to achieve A1C under 7%, T 2 DM (DME) lancets [OneTouch Delica Plus Lancet] 33 gauge misc See Rx Instructions .ROUTE .MEDSUPPLY Qty: 100 3RF Rx Instructions: Monitor BS 2-3x/wk; E11.9, to achieve A1C under 7%, T 2 DM (DME) blood-glucose meter [OneTouch Verio Meter] Misc See Rx Instructions .ROUTE .MEDSUPPLY Qty: 1 0RF Rx Instructions: Monitor BS 2-3x/wk; E11.9, to achieve A1C under 7%, T 2 DM (DME) OneTouch Verio test strips Strip See Rx Instructions .ROUTE .MEDSUPPLY Qty: 100 3RF Rx Instructions: Monitor BS 2-3x/wk; E11.9, to achieve A1C under 7%, T 2 DM flecainide 150 mg tablet 150 mg PO BID Qty: 180 1RF Flovent HFA 110 mcg/actuation HFA aerosol inhaler 2 puff Inhalation BID Qty: 3 3RF Rx Instructions: Rinse mouth after use metoprolol tartrate 25 mg tablet 12.5 mg PO BID Qty: 90 3RF Rx Instructions: 0.5 tab bid Eliquis 5 mg tablet 5 mg PO BID Qty: 180 6RF fluconazole [Diflucan] 150 mg tablet 150 mg PO Q3D Qty: 2 1RF Hold Instructions: Home Medication placed on hold at Doctor's office Rx Instructions: Do not take @ same time as flecainide albuterol sulfate [ProAir HFA] 90 mcg/actuation HFA aerosol inhaler 2 puff Inhalation Q4H PRN PRN (Reason: shortness of breath or wheezing) Qty: 3 1RF Jardiance 10 mg tablet 10 mg PO DAILY Qty: 90 3RF Hold Instructions: Home Medication placed on hold at Doctor's office Rx Instructions: Continue pantoprazole [Protonix] 40 mg tablet,delayed release (DR/EC) 40 mg PO DAILY 0RF Rx Instructions: 07/29/21 Isidro WEEKS [facility] GASTRO STOPPED OMEPRAZOLE AND ORDERED PROTONIX JWO multivitamin 1 EACH capsule 1 ea PO DAILY 0RF acetaminophen [Mapap Extra Strength] 500 MG tablet 1,000 mg PO TID PRN PRNQty: 120 0RF Medical Decision Making Care accepted in transfer 1600 from Edin Gastelum physician respiratory therapist assistant pending CTA and reassessment Patient was given 20 mg of IV Lasix I spoke with Dr. Mayo, community relations coordinator with [facility] and he recommended attempting 5 mg of metoprolol This is administered, however patient became quite hypotensive to 85/60 and I do not feel comfortable giving additional medication at this time At this time her rhythm is uncertain, her Medtronic pacemaker was interrogated with our device but is actively removed interrogation only and does not display rhythms Dr. Mayo recommended calling electrophysiology should you have any additional medication question and so Dr. Nelson was consulted who recommends transfer to higher level of care Patient is agreeable to transfer at this time He confirmed her CODE STATUS is DNR/DNI She is agreeable to further medications and intervention for dysrhythmia at this time She is fully alert, oriented, of decisional capacity She is pending transfer to [facility] [address] and has been accepted under the care of Dr. Yazmin FLOREZ General Mode of arrival: ambulatory. Date/Time Provider Initiated Documentation: 08/08/21 13:14. Limitations to Documentation: no limitations. Information obtained by: patient. Related Data Home Medications Medication Instructions Recorded Confirmed multivitamin 1 ea PO DAILY 11/05/12 08/08/21 acetaminophen 500 mg tablet (Mapap 1,000 mg PO TID PRN PRN #120 tab 12/03/16 08/08/21 Extra Strength) metoprolol tartrate 25 mg tablet 12.5 mg PO BID #90 tab 07/23/20 08/08/21 levothyroxine 112 mcg tablet 112 mcg PO DAILY #90 tab-cap 02/19/21 08/08/21 compress.stocking,knee,reg,lrg #1 ea 03/20/21 07/24/21 apixaban 5 mg tablet (Eliquis) 5 mg PO BID #180 tab-cap 06/15/21 08/08/21 calcium carb 1,200 mg-mag hydrox ml PO 06/23/21 07/24/21 270 mg-simeth 80 mg/10 mL oral susp (Mylanta Coat-Cool) albuterol sulfate 90 mcg/actuation 2 puff INHALATION Q4H PRN PRN #3 06/24/21 08/08/21 aerosol inhaler (ProAir HFA) inhaler empagliflozin 10 mg tablet 10 mg PO DAILY #90 tab 06/24/21 08/08/21 (Jardiance) fluconazole 150 mg tablet 150 mg PO Q3D #2 tab 06/24/21 08/08/21 (Diflucan) blood sugar diagnostic (COSMIC COLORuch #100 ea 07/24/21 08/08/21 Verio test strips) blood-glucose meter (OneTouch #1 ea 07/24/21 Verio Meter) flecainide 150 mg tablet 150 mg PO BID #180 tab-cap 07/24/21 08/08/21 fluticasone propionate 110 2 puff INHALATION BID #3 inh 07/24/21 08/08/21 mcg/actuation HFA aerosol inhaler (Flovent HFA) lancets 33 gauge (WaveseisTouch Delica #100 ea 07/24/21 Plus Lancet) lancing device with lancets kit #1 ea 07/24/21 (OneTouch Delica Plus Lanc Dev) pantoprazole 40 mg tablet,delayed 40 mg PO DAILY 07/29/21 08/08/21 release (Protonix) Previous Rx's Medication Instructions Recorded acetaminophen 500 mg tablet (Mapap 1,000 mg PO TID PRN PRN #120 tab 12/03/16 Extra Strength) metoprolol tartrate 25 mg tablet 12.5 mg PO BID #90 tab 07/23/20 levothyroxine 112 mcg tablet 112 mcg PO DAILY #90 tab-cap 02/19/21 compress.stocking,knee,reg,lrg #1 ea 03/20/21 apixaban 5 mg tablet (Eliquis) 5 mg PO BID #180 tab-cap 06/15/21 albuterol sulfate 90 mcg/actuation 2 puff INHALATION Q4H PRN PRN #3 06/24/21 aerosol inhaler (ProAir HFA) inhaler empagliflozin 10 mg tablet 10 mg PO DAILY #90 tab 06/24/21 (Jardiance) fluconazole 150 mg tablet 150 mg PO Q3D #2 tab 06/24/21 (Diflucan) blood sugar diagnostic (WaveseisTouch #100 ea 07/24/21 Verio test strips) blood-glucose meter (WaveseisTouch #1 ea 07/24/21 Verio Meter) flecainide 150 mg tablet 150 mg PO BID #180 tab-cap 07/24/21 fluticasone propionate 110 2 puff INHALATION BID #3 inh 07/24/21 mcg/actuation HFA aerosol inhaler (Flovent HFA) lancets 33 gauge (WaveseisTouch Delica #100 ea 07/24/21 Plus Lancet) lancing device with lancets kit #1 ea 07/24/21 (OneTouch Delica Plus Lanc Dev) Allergies Allergy/AdvReac Type Severity Reaction Status Date / Time ranitidine Allergy Severe WHEEZING Verified 08/08/21 13:26 cefadroxil Allergy Mild Verified 08/08/21 13:26 ciprofloxacin AdvReac Intermediate WEAKNESS Verified 08/08/21 13:26 pneumococcal 13-valent AdvReac Intermediate temp and Verified 08/08/21 13:26 conjugate to body aches [From Prevnar 13 (PF)] sucralfate AdvReac Intermediate N/V Verified 08/08/21 13:26 General Stated Complaint: SOB DEXTER: 2 PFSH All Active Problems Edema (Acute) LE edema , R>L .. notable, possibly 2' Jardiance intolerance, but possible lymphedema (?) Medication intolerance (Acute) Unable to tolerate Jardiance (candidiasis!), Metformin. Gastroesophageal reflux disease (Acute 07/07/12) Managed with PPI for years, worsening x 2-3 months. Now associated with LUQ tenderness, 05/26/17. []H.pylori [] U/S LUQ ik IMPROVED with weight loss, 06/02.19, ik EGD rescheduled with Dr. Escobar (2' [place] not yet taking appts @ [facility]), 05/26/17 .. Consulted, EGD sched for 06/29/17. note: s/p Singh, hernia repair, and esoph dilation (2013) Atrophic gastritis without mention of hemorrhage (Acute 07/07/12) History of hiatal hernia (Acute) Type 2 diabetes mellitus (Acute) Recent A1C increase, from [id number] to DM this past year.. Vulvovaginal candidiasis (Acute) 2' Jardiance .. trial monostat or diflucan . STOP Jardiance if janae returns. Esophagitis determined by biopsy (Acute) Tachycardia (Acute) Atrioventricular pacing seen on electrocardiogram (Acute) Pacemaker (Acute 09/16/17) Dual lead Medtronic pacemaker Adapta .. Placed 2013, Dr. Edin Robles. 99Medtronic dual lead pacemaker implanted 12/04/2013 .. Adapta [id number] [id number] .. RA Medtronic [id number], 11/2013.. RV [id number] 12/04/2013)) Reactive airway disease (Chronic) Dysphagia, unspecified (Acute 07/07/12) EGD KD: mild esophagitis 10/[address] Ragsdale 09/23/[address] Duncan, [facility], [place], [place]. Impression: Gerd Dysphagia. Rule out secondary to esophageal ulcer,dysmotility, or from perhaps a failing Singh. recommeded: Upper GI Gerd protocaol discussed w/ pt. panel 2,B12 If pt continues sx, may want to repeat upper endoscopy. Plans to see her back in [place]oll[place]. Atrioventricular block (Acute 07/07/12) pacemaker placement 12/04/2013; 5 sec asystoles last interrogation, 03/2017.. Placing referral since Dr. Sweeney retired and she may need cardio eval pre-GI surgery, ik, 09/01/17 Atrial fibrillation (Acute 07/06/11) normal echo and cath 2008; flecanide Rx; apixiban; echo 09/2013 EF 60%.. 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 A1C goal 7.5 ... 7.1 today, 08/07/20. 6.8/6.9 in 11/2016. A1C 6.5 post weight loss and focused effort on reducing carbs/sweets. 06/02/18, ik A1C remains @ 6.5 08/2018, good job! 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 [facility] q6m x1 year, then annually. [place] [place] Shakira Diaz MD Post-radiation association with new abd pain (?), ik, 05/26/17 Essential hypertension (01/18/13) FRS 13% .. Well controlled, 116/70 06/02/18, ik Exertional dyspnea (01/28/15) Family hx-breast malignancy (11/13/12) SISTER IN 60s High risk medications (not anticoagulants) long-term use Flecainide - started by Dr. Douglass History of postmenopausal bleeding Hot flashes Hot Flashes x 6 mos, 06/13/19. Hyperlipidemia (07/07/12) Hypomagnesemia Noted @ ED, 02/2021 .. replenished. Monitor [ ] Hypothyroidism (01/02/13) TSH 2.43 (05/2017) vs. >9 (02/2017). Cont @ same 88mcg. Impaired glucose tolerance (03/10/12) Leg edema Leg weakness With standing .. Hx lumbar stenosis .. Hx spinal injection (?) Macular pucker Multinodular goiter (12/19/15) Muscle spasm of left shoulder area Trapezius MM Spasm .. Neurogenic pain of right lower extremity (09/19/15) Osteoarth NOS-unspec (07/06/11) Pelvic pain (02/07/13) Piriformis syndrome of right side Postnasal drip (01/09/15) Primary osteoarthritis of right knee (01/10/17) s/p RT TKR Fall 2018 Right lumbar radiculopathy Sensorineural hearing loss of both ears Sensorineural hearing loss, bilateral (12/28/13) Spinal stenosis of lumbar region Symptomatic bradycardia Thyroid nodule (01/28/15) 01/01/15 US 4mm nodule isthmus 05/15/15 US 4.5 nodule isthmus, ?7x5 nodule right Trochanteric bursitis, right hip (05/19/16) Urge incontinence Surgical History Cardiac Cath, 2008 Cholecystectomy Colonoscopy - IV Sedation (03/17/16) EGD - MAC (06/29/17) Extraction of cataract B/L Hernia, hiatal (banding) History of Surgical Procedure a. Cholecystectomy. b. Bilateral cataract surgery. c. Hiatal hernia repair 2008. d. Esophagus stretching 2013 - Dr. Ragsdale. e. Pacemaker 12/04/2013 Hyseterectomy, Total Laparoscopic w/ BSO (07/01/16) +Endometrial cancer Pacemaker (12/04/13) Replacement of total knee joint (12/03/16) R knee Dr Del Cid sentinal lymph node dissection (07/01/16) NEG for mets from endometrium Status post right knee replacement Dr. Del Cid, Ortho. She is happy with knee, able to step down from sidewalk w/o fear per 03/02/18 appt discussion. COntinues to do well; seeing ortho for possible neuropathic pain (outer rt calf). upper GI Series (10/05/17) for sx of epigastric dysphagia,GERD. Done by Dr. Duncan. Impression: Moderate sized Hiatal Hernia. Marked gastroesophageal reflux. Family History Mother , old age at age 98. No problems noted. Father , Heart disease at age 64. Heart disease [place] Sister , Colon Ca Personal history of malignant neoplasm Sister , Heart problems at age 72. Personal history of malignant neoplasm Breast cancer, dx'ed in her 60s Heart disease Sister Hypertensive disorder, systemic arterial Diabetes Sister Diabetes Sister Hypertensive disorder, systemic arterial Brother , Parkinson's at age 75. Personal history of malignant neoplasm Brother Parkinson's disease Brother , Heart condition at age 62. Hypertensive disorder, systemic arterial Diabetes Brother Hypertensive disorder, systemic arterial Diabetes Social History Smoking/Tobacco Use Status: Never Smoking risk assessment performed?: Yes Alcohol Intake: never Drug use: Never Substance use type: does not use Adopted: No Foster care: No Housing: apartment Number of Children: 0 number of grandchildren: 0 Communication Needs: Corrective Lenses current occupation: retired from [employer] Pets and animals: No Current gender identity: female What is your relationship status?: Panel score (0-1 are the most socially isolated patients): 0 Seatbelt use: always Working smoke detector in home: Yes Fire extinguisher in home: Yes Carbon monox detector in home: Yes Firearms in home: No Do you feel safe at home: Yes Do you feel safe in your relationship?: Yes Course Vital Signs Vital signs: Vital Signs Temperature 36.7 C 08/08/21 13:22 Pulse 122 H 08/08/21 13:22 Respiratory Rate 15 08/08/21 13:22 Blood Pressure 128/93 H 08/08/21 13:22 Pulse Oximetry 99 08/08/21 13:22 Temperature 36.7 C 08/08/21 13:22 Temperature Source Skin 08/08/21 13:22 Pulse 96 H 08/08/21 18:17 Pulse 133 H 08/08/21 18:17 Respiratory Rate 22 08/08/21 18:17 Respiratory Effort Labored 08/08/21 13:45 Respiratory Depth Normal 08/08/21 13:45 Respiratory Pattern Normal 08/08/21 13:45 Blood Pressure 93/62 L 08/08/21 18:17 Blood Pressure Mean 70 08/08/21 18:17 Blood Pressure Position Supine 08/08/21 13:22 Pulse Oximetry 94 08/08/21 18:17 Oxygen Delivery Method Room Air 08/08/21 13:22 Oxygen Flow Rate 0 08/08/21 13:22 Pain Level 0 08/08/21 13:22 Lab/Test Results Lab/Test Results: Laboratory Tests Range/Units 08/08/21 08/08/21 08/08/21 13:40 13:45 13:45 WBC (4.4-10.8) 10^3/uL 7.02 RBC (3.93-5.22) 10^6/uL 4.34 Hgb (11.2-15.7) g/dL 14.0 Hct (36.0-46.0) % 42.5 MCV (80-95) fL 97.9 H MCH (27.0-33.0) pg 32.3 MCHC (32.0-36.0) % 32.9 RDW (11.7-14.6) % 13.2 Plt Count (130-400) 10^3/uL 199 MPV (8.0-11.0) fL 12.1 H Immature Gran % 0.3 Neutrophils % 71.3 Lymphocytes % 19.8 Monocytes % 7.5 Eosinophils % 0.7 Basophils % 0.4 Nucleated RBC % (0.0-0.3) % 0.0 Absolute Neutrophils (1.2-6.7) 10^3/uL 5.00 Absolute Lymphocytes (1.2-3.4) 10^3/uL 1.39 Absolute Monocytes (0.1-0.8) 10^3/uL 0.53 Absolute Eosinophils (0.0-0.7) 10^3/uL 0.05 Absolute Basophils (0.0-0.2) 10^3/uL 0.03 PT (9.3-11.0) sec INR (0.9-1.1) APTT (21.0-27.5) sec D-Dimer (<500) ng/mlFEU Sodium (136-145) mmol/L 138 Potassium (3.5-5.1) mmol/L 4.3 Chloride (98-107) mmol/L 103 Carbon Dioxide (21.0-32.0) mmol/L 23.2 Anion Gap (3-11) mmol/L 11.8 H BUN (7-18) mg/dL 30 H Creatinine (0.55-1.02) mg/dL 1.2 H Estimated GFR/1.73 m2 (mL/min/1.73m2) 43.01 Glucose (74-106) mg/dL 247 H Calcium (8.5-10.1) mg/dL 9.3 Magnesium (1.8-2.4) mg/dL 1.8 Total Bilirubin (0.2-1.0) mg/dL 0.6 AST (15-37) U/L 41 H ALT (14-59) U/L 52 Alkaline Phosphatase (46-116) U/L 67 Troponin I (<or=60) ng/L < 50 NT-Pro-B Natriuret Pep (<300) pg/mL 4479 H Total Protein (6.4-8.2) g/dL 7.1 Albumin (3.4-5.0) g/dL 3.8 TSH Cancelled 0.63 COVID-19 Source SARS-CoV-2 (PCR) (Negative) Range/Units 08/08/21 08/08/21 08/08/21 13:45 13:45 16:25 WBC (4.4-10.8) 10^3/uL RBC (3.93-5.22) 10^6/uL Hgb (11.2-15.7) g/dL Hct (36.0-46.0) % MCV (80-95) fL MCH (27.0-33.0) pg MCHC (32.0-36.0) % RDW (11.7-14.6) % Plt Count (130-400) 10^3/uL MPV (8.0-11.0) fL Immature Gran % Neutrophils % Lymphocytes % Monocytes % Eosinophils % Basophils % Nucleated RBC % (0.0-0.3) % Absolute Neutrophils (1.2-6.7) 10^3/uL Absolute Lymphocytes (1.2-3.4) 10^3/uL Absolute Monocytes (0.1-0.8) 10^3/uL Absolute Eosinophils (0.0-0.7) 10^3/uL Absolute Basophils (0.0-0.2) 10^3/uL PT (9.3-11.0) sec 12.4 H INR (0.9-1.1) 1.2 H APTT (21.0-27.5) sec 25.1 D-Dimer (<500) ng/mlFEU 924 H Sodium (136-145) mmol/L Potassium (3.5-5.1) mmol/L Chloride (98-107) mmol/L Carbon Dioxide (21.0-32.0) mmol/L Anion Gap (3-11) mmol/L BUN (7-18) mg/dL Creatinine (0.55-1.02) mg/dL Estimated GFR/1.73 m2 (mL/min/1.73m2) Glucose (74-106) mg/dL Calcium (8.5-10.1) mg/dL Magnesium (1.8-2.4) mg/dL Total Bilirubin (0.2-1.0) mg/dL AST (15-37) U/L ALT (14-59) U/L Alkaline Phosphatase (46-116) U/L Troponin I (<or=60) ng/L < 50 NT-Pro-B Natriuret Pep (<300) pg/mL Total Protein (6.4-8.2) g/dL Albumin (3.4-5.0) g/dL TSH COVID-19 Source Nasal/Nares SARS-CoV-2 (PCR) (Negative) Negative Sign Out Sign Out Data: Sign Out Comment: CHF, hypotension, tachycardia. Awaiting [facility] cardiology consultation, eventual diuresis and disposition. Last updated by Edin Pollock PA at 08/08/21 15:51
== END 2021-08-08 20:09 | disposition still patient (30) ==
PROVIDERS: Physician Assistant; Emergency Provider Physician Assistant; PCP Student in an Organized Health Care Education/Training Program
DX: Z20.822 Contact with and (suspected) exposure to COVID-19 (principal)
CPT/HCPCS: 71275; 80053; 87635; 93005; 96361; 96374; 96375; 96376; 99291; 83735; 83880; 84443; 84484; 85025; 85379; 85610; 85730; 93010; J1941; J3490

== ENCOUNTER 2021-08-12 03:37 | Outpatient (CLI) | payer MEDICARE, SELFPAY ==
--- NOTE | 2021-08-14 13:26 | W.DIABETESNO ---
Date of service: 08/14/21 Time of Service: 13:26 Diabetes Note Reason for Visit: dm NOTE: Elaina missed appt this week secondary to being [place] [facility] [place] Spoke to her on phone today. She reports her fasting sugars have been under 130 mg/dl. Post prandial levels have ranged from 175-203 mgdl. She will return to [facility] on 08/20/21. Requested that Elaina bring Dr. Ceron her blood sugar log and to check her sugars at least twice daily (fasting/after lunch). She is able to use the lancets but would prefer the other larger lancet. WIll call if needs further diabetes self management education. Time Spent in Nutritional Counseling and Treatment: 0
== END 2021-08-12 03:38 | disposition home or self-care (01) ==
LOC: DS 03:37
PROVIDERS: PCP Student in an Organized Health Care Education/Training Program; Visit Provider Dietitian, Registered

== ENCOUNTER → 2021-08-25 01:07 | Outpatient (CLI) | payer MEDICARE, SELFPAY ==
--- NOTE | 2021-08-25 13:33 | DI.RAD_ITS ---
Exam(s) XR CHEST 2V PA LATERAL EXAM: XR CHEST 2V PA LATERAL CLINICAL HISTORY: baseline for starting amiodarone, yearly,high risk medication,z79.899. TECHNIQUE: 2D digital imaging was performed. COMPARISON: CR XR PORTABLE CHEST AP from 02/23/2021 FINDINGS: 2 views: Bipolar left subclavian pacemaker again noted with lead tips in right atrium and RV, unchanged. Heart size is normal. The mediastinum is not widened. Right lung is clear. Mild markings left infrahilar region noted. No pleural effusions. No pulmonar y edema. No pneumothorax. IMPRESSION: Minimal increased markings in the left infrahilar region. No large infiltrates nor pleural effusions . Bipolar cardiac pacemaker. Heart size upper normal. No pulmonary edema. DATA REPOSITORY: RADIATION DOSE DELIVERED:
== END ==
PROVIDERS: PCP Student in an Organized Health Care Education/Training Program; Visit Provider Student in an Organized Health Care Education/Training Program
DX: J98.4 Other disorders of lung; Z95.0 Presence of cardiac pacemaker; I42.9 Cardiomyopathy, unspecified; Z79.899 Other long term (current) drug therapy
CPT/HCPCS: 71046

== ENCOUNTER → 2021-08-31 08:54 | Outpatient (BNVA) | payer MEDICARE, SELFPAY | PROVIDERS: PCP Student in an Organized Health Care Education/Training Program; Referring Provider Student in an Organized Health Care Education/Training Program | DX: M25.562 Pain in left knee (principal) | CPT/HCPCS: 20610; J1040 ==

== ENCOUNTER 2021-09-09 14:25 | Outpatient (CLI) | payer MEDICARE, SELFPAY ==
--- NOTE | 2021-09-09 14:15 | RT.EKG_ITS ---
APPROVED REPORT Exam: Resting ECG Reason for Exam: afib Patient Location: O HR:86 bpm ECG Measurements Heart Rate 86 AXIS IN 162 P 0 QRSd 95 QRS 4 QT 388 T -16 QTc 464 Conclusion Atrial-paced complexes...other complexes also detected Probable left ventricular hypertrophy...multiple LVH criteria Baseline wander in lead(s) V2,V3,V4
[2021-09-09 22:23] LABS: ALT 24 U/L (14-59); AST 16 U/L (15-37); Albumin 3.5 g/dL (3.4-5.0); Alkaline Phosphatase 57 U/L (46-116); Anion Gap 7.3 mmol/L (3-11); BUN 20 mg/dL (7-18); Bilirubin, Total 0.3 mg/dL (0.2-1.0); CO2 30.7 mmol/L (21.0-32.0); CREATININE 1.1 mg/dL (0.55-1.02); Calcium 8.8 mg/dL (8.5-10.1); Chloride 102 mmol/L (98-107); Estimated GFR 47.55 (mL/min/1.73m2); Glucose 186 mg/dL (74-106); Potassium 3.8 mmol/L (3.5-5.1); Sodium 140 mmol/L (136-145); TSH (W/Ref FT4) 0.33 uIU/mL (0.36-3.74); Total Protein 6.7 g/dL (6.4-8.2)
[2021-09-09 22:40] LABS: FREE T4 1.67 ng/dL (0.76-1.46)
== END 2021-09-09 14:26 | disposition home or self-care (01) ==
LOC: DI.CARD 14:26 → LBN 21:35
PROVIDERS: PCP Student in an Organized Health Care Education/Training Program; Visit Provider Physician Assistant
DX: I42.9 Cardiomyopathy, unspecified (principal); I44.30 Unspecified atrioventricular block; I48.91 Unspecified atrial fibrillation; Z95.0 Presence of cardiac pacemaker; I47.1 Supraventricular tachycardia
CPT/HCPCS: 80053; 84439; 84443

== ENCOUNTER → 2021-09-09 14:44 | Outpatient (BNVA) | payer MEDICARE, SELFPAY | PROVIDERS: PCP Student in an Organized Health Care Education/Training Program; Visit Provider Physician Assistant | DX: I48.91 Unspecified atrial fibrillation (principal); I42.9 Cardiomyopathy, unspecified; I44.30 Unspecified atrioventricular block; I47.1 Supraventricular tachycardia; Z95.0 Presence of cardiac pacemaker | CPT/HCPCS: 36415; 93005; 93280 ==

== ENCOUNTER 2021-10-05 04:39 | Outpatient (CLI) | payer MEDICARE, SELFPAY ==
[2021-10-05] MEDS: Albuterol HFA 18 GM 200 PUFF INH IH (10:57)
[2021-10-05] MEDS: Inhaler, Assist Device 1 EACH MC (10:58)
--- NOTE | 2021-10-05 15:59 | W.PFT ---
Date of service: 10/05/21 Time of Service: 10:06 Pulmonary Function Test Result Requesting Provider Abdiaziz Indications: Amiodarone use Interpretation Spirometry: There is no airflow limitation. There is no significant bronchodilator response. Lung Volumes: Lung volumes are normal. Diffusion Capacity: Diffusion is normal Airway Pressure: Airways resistance is normal Impression Normal pulmonary function testing Note: When compared to 04/27/12, lung function is stable. Clinical Correlation therefore is recommended.
== END 2021-10-05 04:40 | disposition home or self-care (01) ==
LOC: RT 04:39
PROVIDERS: PCP Student in an Organized Health Care Education/Training Program; Visit Provider Student in an Organized Health Care Education/Training Program
DX: I42.9 Cardiomyopathy, unspecified (principal); I47.1 Supraventricular tachycardia; Z79.899 Other long term (current) drug therapy
CPT/HCPCS: 94060; 94726; 94729

== ENCOUNTER 2021-12-03 01:42 | Outpatient (CLI) | payer MEDICARE, SELFPAY ==
[2021-12-03 10:53] LABS: ALT 26 U/L (14-59); AST 17 U/L (15-37); Albumin 3.2 g/dL (3.4-5.0); Alkaline Phosphatase 47 U/L (46-116); BUN 14 mg/dL (7-18); Bilirubin, Direct 0.1 mg/dL (0.0-0.2); Bilirubin, Total 0.4 mg/dL (0.2-1.0); CREATININE 0.8 mg/dL (0.55-1.02); Calcium 8.6 mg/dL (8.5-10.1); Chloride 104 mmol/L (98-107); Glucose 199 mg/dL (74-106); Potassium 3.8 mmol/L (3.5-5.1); Sodium 141 mmol/L (136-145); TSH (W/Ref FT4) 1.75 uIU/mL (0.36-3.74); Total Protein 6.4 g/dL (6.4-8.2)
== END 2021-12-03 01:43 | disposition home or self-care (01) ==
LOC: LBO 01:43
PROVIDERS: PCP Student in an Organized Health Care Education/Training Program; Visit Provider Student in an Organized Health Care Education/Training Program
DX: E11.9 Type 2 diabetes mellitus without complications (principal); I42.9 Cardiomyopathy, unspecified; I48.91 Unspecified atrial fibrillation; R60.0 Localized edema; Z79.899 Other long term (current) drug therapy
CPT/HCPCS: 36415; 80053; 80076; 84443

== ENCOUNTER → 2021-12-08 10:25 | Outpatient (BNVA) | payer MEDICARE, SELFPAY | PROVIDERS: PCP Student in an Organized Health Care Education/Training Program; Referring Provider Student in an Organized Health Care Education/Training Program; Visit Provider Internal Medicine Cardiovascular Disease | DX: Z79.01 Long term (current) use of anticoagulants (principal); I48.91 Unspecified atrial fibrillation; I42.9 Cardiomyopathy, unspecified; Z95.0 Presence of cardiac pacemaker | CPT/HCPCS: 99214 ==

== ENCOUNTER 2022-01-14 10:43 | Outpatient (CLI) | payer MEDICARE, SELFPAY ==
--- NOTE | 2022-01-14 09:30 | DI.RAD_ITS ---
Exam(s) XR HIP RT COMPLETE AP PELVIS EXAM: XR HIP RT COMPLETE AP PELVIS INDICATION: pain. COMPARISON: CT CT LOWER EXTREMITY RT WO from 03/26/2019 CR XR HIP RT COMPLETE AP PELVIS from 03/26/2019 TECHNIQUE: 2D digital imaging was performed. Three views. FINDINGS: There is mild bilateral hip joint space narrowing. There is acetabular spurring greater on the right . There is spurring from the margin of the right femoral head. There is no evidence of acute fractu re, lytic or blastic bony lesions. Degenerative changes are seen at the SI joints. IMPRESSION: Moderate degenerative changes of the right hip. Mild degenerative changes of the left hip. DATA REPOSITORY: RADIATION DOSE DELIVERED:
== END 2022-01-14 10:44 | disposition home or self-care (01) ==
LOC: DIORS 10:44
PROVIDERS: PCP Student in an Organized Health Care Education/Training Program; Referring Provider Student in an Organized Health Care Education/Training Program; Visit Provider Physician Assistant Surgical
DX: M25.562 Pain in left knee (principal); M25.561 Pain in right knee; M25.551 Pain in right hip
CPT/HCPCS: 20610; 73502; J1040

== ENCOUNTER 2022-01-17 13:23 | Emergency (ER) | payer MEDICARE, SELFPAY ==
[2022-01-17 13:30] VITALS: BP 140/64; PULSE 76; RESP 18; TEMP 36.7; O2SAT 99
--- NOTE | 2022-01-17 13:45 | DI.CT_ITS ---
Exam(s) CT LUMBAR SPINE WO EXAM: CT LUMBAR SPINE WO CLINICAL HISTORY: radicular symptoms to RLE. TECHNIQUE: Imaging Protocol: Axial computed tomography images with coronal and sagittal reformatted images were created and reviewed COMPARISON: CR XR LUMBAR SPINE COMPLETE from 10/01/2019 FINDINGS: Bones: The last intervertebral disc space is designated the L5/S1 level for the numbering purpose of this examination. The vertebral body heights are well maintained. There are prominent endplate osteophytes throughout. Multi level disc space narrowing with vacuum phenomenon. Facet degenerative changes present. Moderate dextro rotoscoliosis. Combination of the degenerative changes causes moderate central canal stenosis at L3-4 and L4-5. Multilevel neural foraminal narrowing is present. No gross evidence of a focal disc herniation. No fracture is seen. The visualized SI joints and sacrum are will maintained. Soft Tissues: Small hiatal hernia. Status post cholecystectomy. Mild atherosclerotic changes of th e aorta. The paraspinal soft tissues are unremarkable. IMPRESSION: Multilevel degenerative changes causing moderate central canal stenosis at L3-4 and L4-5 and multilev el neural foraminal narrowing. No evidence of acute fracture or destructive lesion. RADIATION DOSE DELIVERED: 842.32mGy.cm Total DLP 842.32mGy.cm Total DLP 842.32mGy.cm Total DLP 842.32mGy.cm Total DLP DATA REPOSITORY: All CT scans at this facility are submitted to the National Radiology Data Registry (NRDR) Dose Index Registry (DIR) with the [employer] ([employer]). RADIATION OPTIMIZATION: All CT scans at this facility use at least one of these dose optimization te chniques: automated exposure control; mA and/or kV adjustment per patient size (includes targeted exa ms where dose is matched to clinical indication); or iterative reconstruction.
--- NOTE | 2022-01-17 13:45 | DI.CT_ITS ---
Exam(s) CT LOWER EXTREMITY RT WO EXAM: CT LOWER EXTREMITY RT WO CLINICAL HISTORY: hip pain. TECHNIQUE: Imaging Protocol: Axial computed tomography images with coronal and sagittal reformatted images were created and reviewed. CONTRAST MATERIAL: Noncontrast COMPARISON: CT CT LOWER EXTREMITY RT WO from 03/26/2019 CR XR HIP RT COMPLETE AP PELVIS from 01/14/2022 FINDINGS: Bones: The osseous structures and articular surfaces are intact. There is no evidence of fracture or dislocation. Bony alignment is satisfactory. No cellulitic or osteomyelitic changes are identified. There is [id number]-rc-[id number] joint space narrowing. Mild to moderate periarticular spurring. No lyti c or sclerotic lesions are identified. Soft Tissues: Normal. IMPRESSION: Degenerative changes. No evidence of fracture. RADIATION DOSE DELIVERED: 525.39mGy.cm Total DLP DATA REPOSITORY: All CT scans at this facility are submitted to the National Radiology Data Registry (NRDR) Dose Index Registry (DIR) with the [employer] ([employer]). RADIATION OPTIMIZATION: All CT scans at this facility use at least one of these dose optimization te chniques: automated exposure control; mA and/or kV adjustment per patient size (includes targeted exa ms where dose is matched to clinical indication); or iterative reconstruction.
[2022-01-17] MEDS: oxyCODONE 5 MG TAB 2.5 MG PO (14:12)
[2022-01-17] MEDS: Acetaminophen 325 MG TAB 650 MG PO (14:12)
--- NOTE | 2022-01-17 14:14 | ED.GENADUL_ITS ---
Discharge Plan Disposition Patient Disposition: HOME Condition: Stable Discharge Details Clinical Impression: Acute lumbar radiculopathy Primary Care Provider: Vicenta Freed ED Provider: Edin Pollock Home Meds and New Rx's Prescriptions: Continued (DME) compress.stocking,knee,reg,lrg Misc See Rx Instructions .ROUTE .MEDSUPPLY Qty: 1 0RF Rx Instructions: As directed, 20mmHg-30mmHg (pt unable to tolerate higher pressure) Mylanta Coat-Cool 1,200 mg-270 mg -80 mg/10 mL suspension PO (DME) lancing device with lancets [OneTouch Delica Plus Lanc Dev] Kit See Rx Instructions .ROUTE .MEDSUPPLY Qty: 1 0RF Rx Instructions: Monitor BS 2-3x/wk; E11.9, to achieve A1C under 7%, T 2 DM (DME) blood-glucose meter [OneTouch Verio Meter] Misc See Rx Instructions .ROUTE .MEDSUPPLY Qty: 1 0RF Rx Instructions: Monitor BS 2-3x/wk; E11.9, to achieve A1C under 7%, T 2 DM (DME) OneTouch Verio test strips Strip See Rx Instructions .ROUTE .MEDSUPPLY Qty: 100 3RF Rx Instructions: Monitor BS 2-3x/wk; E11.9, to achieve A1C under 7%, T 2 DM fluticasone propionate [Flovent HFA] 110 mcg/actuation HFA aerosol inhaler 2 puff Inhalation BID Qty: 3 3RF Rx Instructions: Rinse mouth after use (DME) lancets [BD Microtainer Lancet] 30 gauge misc See Rx Instructions .Route Qty: 100 3RF Rx Instructions: monitor blood sugars once daily, T 2 DM E11.9, to achieve A1C goal under 7.5% Eliquis 5 mg tablet 5 mg PO BID Qty: 180 6RF albuterol sulfate [ProAir HFA] 90 mcg/actuation HFA aerosol inhaler 2 puff Inhalation Q4H PRN PRN (Reason: shortness of breath or wheezing) Qty: 3 1RF metoprolol tartrate 25 mg tablet 12.5 mg PO BID Qty: 90 3RF Rx Instructions: 0.5 tab bid levothyroxine 100 mcg tablet 100 mcg PO DAILY Qty: 90 1RF amiodarone 200 mg tablet 200 mg PO DAILY Qty: 90 1RF Rx Instructions: Cont Kiesling (Cardio) Rx furosemide 20 mg tablet 20 mg PO DAILY Qty: 90 3RF pantoprazole 40 mg tablet,delayed release (DR/EC) 40 mg PO DAILY Rx Instructions: 09/30/21- increase to BID . Bhavani Coyne APRN [facility] 10/29/21 decrease to daily P.YOKO Coyne multivitamin 1 EACH capsule 1 ea PO DAILY acetaminophen [Mapap Extra Strength] 500 MG tablet 1,000 mg PO TID PRN PRNQty: 120 0RF No Action methylprednisolone [Medrol (Roni)] 4 mg tablets,dose pack See Rx Instructions PO DIRECTED Qty: 21 0RF Rx Instructions: 1 pack PO as directed for right leg pain gabapentin 100 mg capsule 100 - 200 mg PO QHS Qty: 20 0RF Rx Instructions: Radicular right leg pain Discharge Instructions Additional Instructions: Follow-up with Dr. Del Cid, he is aware you are in the emergency department Please return earlier should you have new or worsening complaints Of right knee for several doses of pain medication, you may take this at home as needed, use caution Discharge Data Discharge Date/Time-TO BE ENTERED AT DEPARTURE: 01/17/22 16:58 Medical Decision Making <DARNELL Estrella - Last Filed: 01/20/22 18:23> Patient appears well, she is diffusely tender, low suspicion for DVT clinically this has been going on for the past month Dr. Del Cid was in contact and states that he is considering performing a hip injection on her, he states he did evaluate her a month ago for similar pain. There is no trauma, I did order CT lumbar spine she has been having some back pain and her pain radiates into her right lower extremity He did order oxycodone and Tylenol for discomfort She is pending CT at this time <DARNELL Hammond - Last Filed: 01/17/22 16:51> Patient appears well, she is diffusely tender, low suspicion for DVT clinically this has been going on for the past month Dr. Del Cid was in contact and states that he is considering performing a hip injection on her, he states he did evaluate her a month ago for similar pain. There is no trauma, I did order CT lumbar spine she has been having some back pain and her pain radiates into her right lower extremity He did order oxycodone and Tylenol for discomfort She is pending CT at this time 1530: Edin Pollock PA-C I assumed care of this 82-year-old female from my colleague DARNELL Castellon. Please see her initial HPI and examination. At time of signout awaiting CT imaging and disposition. CT imaging resulted, multiple chronic findings but nothing acute. Could consider outpatient MRI. Discussed CT findings with patient. She is able to ambulate slowly but steadily using her cane. She is scheduled to be seen by her PCP on Tuesday and her orthopedic team on . Will DC with plan set forth by DARNELL Castellon. Standard discharge and return precautions were provided. Patient understands, is agreeable to this plan, and has no additional questions or concerns upon discharge. This documentation was generated using [employer] system, please disregard any oddities of phrase or misspellings. Imaging Data Radiologic Study: Attestation: I personally reviewed and interpreted this imaging study as follows: Imaging: CT Scan Radiologist's impression: PROCEDURE INFORMATION: Exam: CT Lumbar Spine Without Contrast Exam date and time: 01/17/2022 3:48 PM Age: 82 years old Clinical indication: Low back pain; Patient HX: Radicular symptoms to rle TECHNIQUE: Imaging protocol: Computed tomography of the lumbar spine without contrast. COMPARISON: CT LUMBAR SPINE WO 10/02/2019 2:41 PM FINDINGS: Bones/joints: Lumbar scoliosis. No acute compression deformities. Advanced multilevel lumbar spine disc degeneration at every level. Diffuse spondylosis changes. Multilevel lateral recess and foraminal stenosis. Central canal narrowing L2-L3, L3-L4 and L4-L5. Mediastinal space: Small hiatal hernia. Gallbladder and bile ducts: Cholecystectomy. Cholecystectomy. Soft tissues: Unremarkable. IMPRESSION: 1. Advanced multilevel disc degeneration, spondylosis changes and scoliosis. 2. Multilevel central canal and foraminal narrowing. Consider follow-up MRI of the lumbar spine Radiologic Study #2: Attestation: I personally reviewed and interpreted this imaging study as kristie nance: Imaging: CT Scan Radiologist's impression: PROCEDURE INFORMATION: Exam: CT Right Lower Extremity Without Contrast, Hip Exam date and time: 01/17/2022 3:57 PM Age: 82 years old Clinical indication: Right; Patient HX: Hip pain TECHNIQUE: Imaging protocol: CT of the Right lower extremity without contrast was performed. Exam focused on the hip. COMPARISON: CT LOWER EXTREMITY RT WO 03/26/2019 5:13 PM FINDINGS: Bones/joints: Advanced disc degeneration at L3-L4, L4-L5 and L5-S1. Moderate degenerative changes of the right hip joint space. Pelvic rim is intact. No evidence of right hip fracture. Soft tissues: No soft tissue hematoma. Bowel: Sigmoid colon diverticulosis. IMPRESSION: No hip fracture. Moderate degenerative changes of the hip joint space. HPI <DARNELL Estrella - Last Filed: 01/20/22 18:23> General Date/Time Provider Initiated Documentation: 01/17/22 13:26 . HPI Narrative: This 82-year-old female presents with reports of right hip and back pain. She states it radiates down her entire right lower extremity. She denies any falls or injuries. She is actually states she was seen by orthopedics and is here secondary to worsening pain she denies any abdominal pain or urinary symptoms. Her pain is exacerbated with movement. She took Tylenol yesterday but states that this has not alleviated her symptoms. She does feel like she is able to ambulate around her house with cane. Related Data Home Medications Medication Instructions Recorded Confirmed multivitamin 1 ea PO DAILY 11/05/12 01/20/22 acetaminophen 500 mg tablet (Mapap 1,000 mg PO TID PRN PRN #120 tabs 12/03/16 01/20/22 Extra Strength) compress.stocking,knee,reg,lrg #1 ea 03/20/21 01/20/22 apixaban 5 mg tablet (Eliquis) 5 mg PO BID #180 tab-caps 06/15/21 01/20/22 calcium carb 1,200 mg-mag hydrox ml PO 06/23/21 01/20/22 270 mg-simeth 80 mg/10 mL oral susp (Mylanta Coat-Cool) albuterol sulfate 90 mcg/actuation 2 puff inhalation Q4H PRN PRN 06/24/21 01/20/22 aerosol inhaler (ProAir HFA) shortness of breath or wheezing ##3 blood sugar diagnostic (OneTouch #100 ea 07/24/21 01/20/22 Verio test strips) blood-glucose meter (OneTouch #1 ea 07/24/21 01/20/22 Verio Meter) fluticasone propionate 110 2 puff inhalation BID #3 07/24/21 01/20/22 mcg/actuation HFA aerosol inhaler inhalations (Flovent HFA) lancing device with lancets kit #1 ea 07/24/21 01/20/22 ([employer] Delica Plus Lancing Device kit) lancets 30 gauge (BD Microtainer #100 ea 08/20/21 01/20/22 Lancet) metoprolol tartrate 25 mg tablet 12.5 mg PO BID #90 tabs 08/24/21 01/20/22 levothyroxine 100 mcg tablet 100 mcg PO DAILY #90 tab-caps 09/20/21 01/20/22 amiodarone 200 mg tablet 200 mg PO DAILY #90 tabs 11/04/21 01/20/22 furosemide 20 mg tablet 20 mg PO DAILY #90 tabs 11/04/21 01/20/22 pantoprazole 40 mg tablet,delayed 40 mg PO DAILY 11/04/21 01/20/22 release gabapentin 100 mg capsule 100 - 200 mg PO QHS #20 caps 01/20/22 01/20/22 methylprednisolone 4 mg tablets in See Rx Instructions PO DIRECTED 01/20/22 01/20/22 a dose pack (BURLESQUICEOUSrol (Roni)) #21 dose pk Previous Rx's Medication Instructions Recorded acetaminophen 500 mg tablet (Mapap 1,000 mg PO TID PRN PRN #120 tabs 12/03/16 Extra Strength) compress.stocking,knee,reg,lrg #1 ea 03/20/21 apixaban 5 mg tablet (Eliquis) 5 mg PO BID #180 tab-caps 06/15/21 albuterol sulfate 90 mcg/actuation 2 puff inhalation Q4H PRN PRN 06/24/21 aerosol inhaler (ProAir HFA) shortness of breath or wheezing ##3 blood sugar diagnostic ([facility] ea 07/24/21 Verio test strips) blood-glucose meter (OneTouch #1 ea 07/24/21 Verio Meter) fluticasone propionate 110 2 puff inhalation BID #3 07/24/21 mcg/actuation HFA aerosol inhaler inhalations (Flovent HFA) lancing device with lancets kit #1 ea 07/24/21 ([employer] Delica Plus Lancing Device kit) lancets 30 gauge (BD Microtainer #100 ea 08/20/21 Lancet) metoprolol tartrate 25 mg tablet 12.5 mg PO BID #90 tabs 08/24/21 levothyroxine 100 mcg tablet 100 mcg PO DAILY #90 tab-caps 09/20/21 amiodarone 200 mg tablet 200 mg PO DAILY #90 tabs 11/04/21 furosemide 20 mg tablet 20 mg PO DAILY #90 tabs 11/04/21 gabapentin 100 mg capsule 100 - 200 mg PO QHS #20 caps 01/20/22 methylprednisolone 4 mg tablets in See Rx Instructions PO DIRECTED 01/20/22 a dose pack (Medrol (Roni)) #21 dose pk Allergies Allergy/AdvReac Type Severity Reaction Status Date / Time ranitidine Allergy Severe WHEEZING Verified 01/20/22 15:30 cefadroxil Allergy Mild Verified 01/20/22 15:30 ciprofloxacin AdvReac Intermediate WEAKNESS Verified 01/20/22 15:30 pneumococcal 13-valent AdvReac Intermediate temp and Verified 01/20/22 15:30 conjugate to body aches [From Prevnar 13 (PF)] sucralfate AdvReac Intermediate N/V Verified 01/20/22 15:30 General Stated Complaint: Orthopedic DEXTER: 4 Review of Systems <DARNELL Estrella - Last Filed: 01/20/22 18:23> All systems reviewed & are unremarkable except as noted in HPI and below PFSH <DARNELL Estrella - Last Filed: 01/20/22 18:23> All Active Problems (Updated 01/17/22 @ 15:42 by DARNELL Estrella) Acute lumbar radiculopathy (Acute) Pyrosis (Acute) Sensorineural hearing loss (Acute) Lesion of face (Acute) or BCCA left lateral canthus 09/14/[address] Dillon 09/22/21 sutures removed Left knee pain (Acute) DEPO MEDROL 01/14/[address] [facility] during hosp stay for atrial tachy .. NEG.. referred to local ortho ([facility]). High risk medications (not anticoagulants) long-term use (Acute) Amiodarone started, 07/2021 (after years on flecainide).. [ ] Ophtho, EP, Echo, PFTs .. short-term lasix. Cardiomyopathy (Acute) Due to atrial tachycardia.. xferred to [facility], PM reprogrammed. Amiodarone replacing flecainide. Low-dose diuretics (see 08/11/21 [facility] Cardio note).. Atrial tachycardia (Acute) per Cardiology, [facility] .. Admitted post xfer from [facility] ED (08/08/21). EF 50%. Amiodarone started; Flecainide stopped. Atrioventricular pacing seen on electrocardiogram (Acute) Atrial fibrillation (Acute 07/06/11) normal echo and cath 2008; flecanide Rx; apixiban; echo 09/2013 EF 60%.. Atrioventricular block (Acute 07/07/12) pacemaker placement 12/04/2013; 5 sec asystoles last interrogation, 03/2017. Pacemaker (Acute 09/16/17) Sees DARNELL Tejada ([facility]). Dual lead Medtronic pacemaker Adapta .. Placed 2013, Dr. Edin Robles. 99Medtronic dual lead pacemaker implanted 12/04/2013 .. Adapta [id number] .. RA Medtronic [id number], 11/2013.. RV [id number] 12/04/2013)) Tachycardia (Acute) Type 2 diabetes mellitus (Acute) Recent A1C increase, from pre-diabetes to DM this past year.. Edema (Acute) LE edema , R>L .. notable, possibly 2' Jardiance intolerance, but possible lymphedema (?) Medication intolerance (Acute) Unable to tolerate Jardiance (candidiasis!), Metformin. Vulvovaginal candidiasis (Acute) 2' Jardiance .. trial monostat or diflucan . STOP Jardiance if janae returns. Dysphagia, unspecified (Acute 07/07/12) EGD KD: mild esophagitis 10/[address] Ragsdale 09/23/[address] Duncan, [facility], [place], [place]. Impression: Gerd Dysphagia. Rule out secondary to esophageal ulcer,dysmotility, or from perhaps a failing Singh. recommeded: Upper GI Gerd protocaol discussed w/ pt. panel 2,B12 If pt continues sx, may want to repeat upper endoscopy. Plans to see her back in follwup. Gastroesophageal reflux disease (Acute 07/07/12) Managed with PPI for years, worsening x 2-3 months. Now associated with LUQ tenderness, 05/26/17. []H.pylori [] U/S LUQ ik IMPROVED with weight loss, 06/02., ik EGD rescheduled with Dr. Escobar (2' Margaret not yet taking appts @ [facility]), 05/26/17 .. Consulted, EGD sched for 06/29/17. 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 A1C goal 7.5 ... 7.1 today, 08/07/20. 6.8/6.9 in 11/2016. A1C 6.5 post weight loss and focused effort on reducing carbs/sweets. 06/02/18, ik A1C remains @ 6.5 08/2018, good job! 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 [facility] q6m x1 year, then annually. --[facility] 06/2016 Shakira Diaz MD Post-radiation association with new abd pain (?), ik, 05/26/17 Essential hypertension (01/18/13) FRS 13% .. Well controlled, 116/70 06/02/18, ik Exertional dyspnea (01/28/15) Failed fundoplication Family hx-breast malignancy (11/13/12) SISTER IN 60s High risk medications (not anticoagulants) long-term use Flecainide - started by Dr. Douglass History of postmenopausal bleeding Hot flashes Hot Flashes x 6 mos, 06/13/19. Hyperlipidemia (07/07/12) Hypomagnesemia Noted @ ED, 02/2021 .. replenished. Monitor [ ] Hypothyroidism (01/02/13) TSH 2.43 (05/2017) vs. >9 (02/2017). Cont @ same 88mcg. Impaired glucose tolerance (03/10/12) Leg edema Leg weakness With standing .. Hx lumbar stenosis .. Hx spinal injection (?) Macular pucker Multinodular goiter (12/19/15) Muscle spasm of left shoulder area Trapezius MM Spasm .. Neurogenic pain of right lower extremity (09/19/15) Osteoarth NOS-unspec (07/06/11) Pelvic pain (02/07/13) Piriformis syndrome of right side Postnasal drip (01/09/15) Primary osteoarthritis of right knee (01/10/17) s/p RT TKR Fall 2017 Right lumbar radiculopathy Sensorineural hearing loss of both ears Sensorineural hearing loss, bilateral (12/28/13) Spinal stenosis of lumbar region Symptomatic bradycardia Thyroid nodule (01/28/15) 01/01/15 US 4mm nodule isthmus 05/15/15 US 4.5 nodule isthmus, ?7x5 nodule right Trochanteric bursitis, right hip (05/19/16) Urge incontinence Surgical History Cardiac Cath, 2008 Cholecystectomy Colonoscopy - IV Sedation (03/17/16) EGD - MAC (06/29/17) Extraction of cataract B/L Hernia, hiatal (banding) History of Surgical Procedure a. Cholecystectomy. b. Bilateral cataract surgery. c. Hiatal hernia repair 2008. d. Esophagus stretching 2013 - Dr. Ragsdale. e. Pacemaker 12/04/2013 Hyseterectomy, Total Laparoscopic w/ BSO (07/01/16) +Endometrial cancer Pacemaker (12/04/13) Replacement of total knee joint (12/03/16) R knee Dr Del Cid sentinal lymph node dissection (07/01/16) NEG for mets from endometrium Status post right knee replacement Dr. Del Cid, Ortho. She is happy with knee, able to step down from sidewalk w/o fear per 03/02/18 appt discussion. COntinues to do well; seeing ortho for possible neuropathic pain (outer rt calf). upper GI Series (10/05/17) for sx of epigastric dysphagia,GERD. Done by Dr. Duncan. Impression: Moderate sized Hiatal Hernia. Marked gastroesophageal reflux. Family History Mother , old age at age 98. No problems noted. Father , Heart disease at age 64. Heart disease ID Sister , Colon Ca Personal history of malignant neoplasm Sister , Heart problems at age 72. Personal history of malignant neoplasm Breast cancer, dx'ed in her 60s Heart disease Sister Hypertensive disorder, systemic arterial Diabetes Sister Diabetes Sister Hypertensive disorder, systemic arterial Brother , Parkinson's at age 75. Personal history of malignant neoplasm Brother Parkinson's disease Brother , Heart condition at age 62. Hypertensive disorder, systemic arterial Diabetes Brother Hypertensive disorder, systemic arterial Diabetes Social History Smoking/Tobacco Use Status: Never Smoking risk assessment performed?: Yes Alcohol Intake: never Drug use: Never Substance use type: does not use Adopted: No Foster care: No Housing: apartment Number of Children: 0 number of grandchildren: 0 Communication Needs: Corrective Lenses current occupation: retired from [employer] Pets and animals: No Current gender identity: female What is your relationship status?: Panel score (0-1 are the most socially isolated patients): 0 Seatbelt use: always Working smoke detector in home: Yes Fire extinguisher in home: Yes Carbon monox detector in home: Yes Firearms in home: No Do you feel safe at home: Yes Do you feel safe in your relationship?: Yes Exam <DARNELL Estrella - Last Filed: 01/20/22 18:23> Const General: cooperative and comfortable Resp Effort & Inspection: normal respiratory effort Auscultation: clear to auscultation bilaterally Cardio Rate: regular rate Rhythm: regular rhythm GI Inspection: normal to inspection Other: No abdominal tenderness No CVA tenderness, no abdominal bruit or pulsatile mass Skin General skin exam: no rashes or lesions noted Neuro General: patient alert and patient oriented x3 Other: distal pulses intact Extrem Other: tenderness to right hip and knee Course <DARNELL Estrella - Last Filed: 01/20/22 18:23> Vital Signs Vital signs: Vital Signs Temperature 36.7 C 01/17/22 13:30 Pulse 76 01/17/22 13:30 Respiratory Rate 18 01/17/22 13:30 Blood Pressure 140/64 01/17/22 13:30 Pulse Oximetry 99 01/17/22 13:30 Temperature 36.7 C 01/17/22 13:30 Temperature Source Tympanic 01/17/22 13:30 Pulse 76 01/17/22 13:30 Respiratory Rate 18 01/17/22 13:30 Respiratory Effort 01/17/22 13:32 Blood Pressure 140/64 01/17/22 13:30 Blood Pressure Position Supine 01/17/22 13:30 Pulse Oximetry 99 01/17/22 13:30 Oxygen Delivery Method Room Air 01/17/22 13:30 Oxygen Flow Rate 0 01/17/22 13:30 Pain Level 10 01/17/22 14:12 Sign Out <DARNELL Estrella - Last Filed: 01/20/22 18:23> Sign Out Data: Sign Out Comment: pending ct hip and lumbar spine, amb trial if wnl Last updated by Mallory Castellon PA at 01/17/22 15:40
--- NOTE | 2022-01-17 16:22 | DI.VRAD_ITS ---
PROCEDURE INFORMATION: Exam: CT Lumbar Spine Without Contrast Exam date and time: 01/17/2022 3:48 PM Age: 82 years old Clinical indication: Low back pain; Patient HX: Radicular symptoms to rle TECHNIQUE: Imaging protocol: Computed tomography of the lumbar spine without contrast. COMPARISON: CT LUMBAR SPINE WO 10/02/2019 2:41 PM FINDINGS: Bones/joints: Lumbar scoliosis. No acute compression deformities. Advanced multilevel lumbar spine disc degeneration at every level. Diffuse spondylosis changes. Multilevel lateral recess and foraminal stenosis. Central canal narrowing L2-L3, L3-L4 and L4-L5. Mediastinal space: Small hiatal hernia. Gallbladder and bile ducts: Cholecystectomy. Cholecystectomy. Soft tissues: Unremarkable. IMPRESSION: 1. Advanced multilevel disc degeneration, spondylosis changes and scoliosis. 2. Multilevel central canal and foraminal narrowing. Consider follow-up MRI of the lumbar spine. Dictated and Authenticated by: Turner Galaviz MD. Ordering:MAGDIEL Tejada MD
--- NOTE | 2022-01-17 16:22 | DI.VRAD_ITS ---
PROCEDURE INFORMATION: Exam: CT Right Lower Extremity Without Contrast, Hip Exam date and time: 01/17/2022 3:57 PM Age: 82 years old Clinical indication: Right; Patient HX: Hip pain TECHNIQUE: Imaging protocol: CT of the Right lower extremity without contrast was performed. Exam focused on the hip. COMPARISON: CT LOWER EXTREMITY RT WO 03/26/2019 5:13 PM FINDINGS: Bones/joints: Advanced disc degeneration at L3-L4, L4-L5 and L5-S1. Moderate degenerative changes of the right hip joint space. Pelvic rim is intact. No evidence of right hip fracture. Soft tissues: No soft tissue hematoma. Bowel: Sigmoid colon diverticulosis. IMPRESSION: No hip fracture. Moderate degenerative changes of the hip joint space. Dictated and Authenticated by: Turner Galaviz MD. Ordering:MAGDIEL Tejada MD
== END 2022-01-17 16:58 | disposition home or self-care (01) ==
PROVIDERS: Emergency Provider Physician Assistant; PCP Student in an Organized Health Care Education/Training Program
DX: M54.16 Radiculopathy, lumbar region (principal); I10 Essential (primary) hypertension; J45.909 Unspecified asthma, uncomplicated; E11.9 Type 2 diabetes mellitus without complications; Z79.51 Long term (current) use of inhaled steroids
CPT/HCPCS: 99284; 72131; 73700

== ENCOUNTER → 2022-01-21 03:33 | Outpatient (CLI) | payer MEDICARE, SELFPAY ==
--- NOTE | 2022-01-21 08:30 | DI.RAD_ITS ---
Exam(s) RF JOINT INJECTION FLUORO GUID EXAM: RF JOINT INJECTION FLUORO GUID CLINICAL HISTORY: R HIP INJ UNDER FLUORO,rt hip pain, m25.551 TECHNIQUE: 2D and realtime digital imaging was performed. CONTRAST MATERIAL: Water soluble contrast was administered. COMPARISON: No exams were available for comparison FINDINGS: Fluoroscopy was provided for Dr. Del Cid during the performance of a right hip injection. Please r efer to the procedure report for complete details. IMPRESSION: RADIATION DOSE DELIVERED: cassie Henry=8.87 mGy
[2022-01-21] MEDS: Bupivacaine 0.5% Pres-Free 10 ML VIAL IJ (15:40)
[2022-01-21] MEDS: methylPREDNISolone ACETATE 80 MG/ML VIAL IM (15:41)
[2022-01-21] MEDS: Omnipaque 300 MG/ML 10 ML BTL IJ (15:41)
--- NOTE | 2022-01-21 21:25 | W.PROCNOTE ---
Date of service: 01/21/22 Time of Service: 15:40 Procedure Note Date of procedure: 01/21/22 Procedure: Right Hip Injection with Fluoroscopic Guidance Surgeon/Proceduralist/Physician: Castillo Del Cid Procedure Diagnosis: Right Hip Osteoarthritis Procedure Indications: Elaina has had persistent and debilitating pain of the RIGHT hip and groin. Noninvasive measures have been tried. To serve as both diagnostic and therapeutic, an injection under fluoroscopy was recommended. I had discussed the risks of the procedure and the patient elected to proceed. Procedure Description: Elaina was greeted in the flouroscopy room. The correct side was identified and the consent was reviewed with the patient and signed. The patient was then placed in the supine position on the fluoroscopy table. The RIGHT hip was then prepped with Chloraprep. The anterolateral injection starting point was identiifed by bony landmarks and fluoroscopy. The skin and soft tissue in the tract of the injection was anesthetized with 1% Lidocaine. A spinal needle was then inserted deep into the hip joint at the level of the lateral femoral neck under fluoroscopic guidance. A small amount of Omnipaque solution was injected to confirm intraarticular placement. Once confirmed, the hip was injected with 5cc of 0.5% Bupivicaine and 80mg of Depo-Medrol. A bandaid was placed on the injection site. The patient tolerated the procedure well and noted improvement in pre-injection pain.
== END ==
PROVIDERS: PCP Student in an Organized Health Care Education/Training Program; Visit Provider Student in an Organized Health Care Education/Training Program
DX: M25.551 Pain in right hip (principal)
CPT/HCPCS: 20610; 77002; J1040

== ENCOUNTER → 2022-01-29 13:55 | Outpatient (CLI) | payer MEDICARE, SELFPAY ==
--- NOTE | 2022-01-29 09:45 | DI.RAD_ITS ---
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 TECHNIQUE: 2D digital imaging was performed. COMPARISON: CR XR KNEE RT 3V AP,LAT,IFEANYI from 03/26/2019 FINDINGS: 3 views There is a right knee prosthesis. There is satisfactory position alignment of the components of the prosthesis. No evidence of fracture or obvious loosening. There is no radiographic evidence of oste omyelitis. No prominent joint effusion. IMPRESSION: Satisfactory appearance of the prosthesis. DATA REPOSITORY: RADIATION DOSE DELIVERED:
== END ==
PROVIDERS: PCP Student in an Organized Health Care Education/Training Program; Visit Provider Nurse Practitioner Adult Health
DX: Z96.652 Presence of left artificial knee joint
CPT/HCPCS: 73562

== ENCOUNTER 2022-02-25 10:23 | Outpatient (CLI) | payer MEDICARE, SELFPAY ==
[2022-02-25 10:34] VITALS: BP 124/77; PULSE 72; RESP 20; TEMP 36.4; O2SAT 94
[2022-02-25 11:13] VITALS: BP 137/65; PULSE 65; RESP 12; O2SAT 100
--- NOTE | 2022-02-25 11:18 | PDOC.PAIN ---
Date of service: 02/25/22 Time of Service: 11:24 Pain Clinic Procedure Note Procedure Note Procedure Note: Lumbar Epidural Steroid Injection Procedure Note COMMENTS:She was previously evaluated by Dr. Del Cid. She has low back pain and pain radiating to the right leg (right buttock, posterior thigh, and lateral calf). She has positive findings on MRI which could cause these symptoms. Pre-procedure pain VAS was 6/10. She is diabetic and her blood sugar this AM was 207. For this reason I did reduce the amount of Depomedrol from 80 mg to 40 mg. Dx: Lumbosacral radiculopathy Elaina Huddleston has been referred to the [facility] for lumbar epidural steroid injection. The patient was greeted by the nurse who verified patients name and . Patient was then taken to the fluoroscopy suite. The patient was interviewed and the medial record reviewed. There were no medical, pharmacologic, radiographic, or other structural contraindications to attempting fluoroscopically guided lumbar epidural steroid injection. Risks and expected side effects as well as potential benefits of the procedure were reviewed and voiced concerns expressed. The patient consent form was signed and witnessed. Standard patient time-out procedure was performed. The patient was placed in the prone position on the fluoroscopy table and automated blood pressure cuff and pulse oximeter applied. The skin entry point for entering/approaching the epidural space by a L5-L5 and marked. Following thorough chlorhexadine preparation of the skin and draping and 1% lidocaine infiltration of the skin entry point and subcutaneous tissues, a 18 gauge Touhy needle was placed under fluoroscopic guidance and with loss of resistance technique into the epidural space. Needle tip placement and depth were aided and confirmed by fluoroscopy. There was no paresthesia or return of blood or CSF through the needle. 1 cc's of Omnipaque 240 was injected with clear epidural spread confirmed with fluoroscopy. 40mg depomedrol was injected. There was not any unusual discomfort expressed by Elaina Huddleston. Patient's vital signs were stable throughout the procedure and were as recorded in nursing records. Follow up plans and appointments were discussed with patient. Post procedure instruction was given as documented in nursing records and having met discharge criteria and was discharged from the [facility]. COMMENTS: If this procedure is helpful, it can be completed up to 3 times per 12 months. Post-procedure pain VAS was 2/10. Nirav Richmond DO, MPH [facility]-Pain Management [facility]
--- NOTE | 2022-02-25 11:19 | DI.RAD_ITS ---
Exam(s) XR PAIN CLINIC LUMBAR SP 2V EXAM: XR PAIN CLINIC LUMBAR SP 2V CLINICAL HISTORY: DX: lumbar radiculopathy TECHNIQUE: 2D and realtime digital imaging was performed. COMPARISON: No exams were available for comparison FINDINGS: C-arm fluoroscopy was utilized by Dr. Richmond during reported upper dural injection. Hard copy shows ep idural injection at what appears to be the L5-S1 level. IMPRESSION: RADIATION DOSE DELIVERED: cassie Henry=8.79 mGy
[2022-02-25] MEDS: methylPREDNISolone ACETATE 80 MG/ML VIAL IJ (11:26)
[2022-02-25] MEDS: Omnipaque 240 MG/ML 50 ML BTL IJ (11:27)
== END 2022-02-25 10:24 | disposition home or self-care (01) ==
LOC: PC 10:23
PROVIDERS: PCP Student in an Organized Health Care Education/Training Program; Visit Provider Preventive Medicine Occupational Medicine
DX: M54.17 Radiculopathy, lumbosacral region (principal); M54.50 Low back pain, unspecified
CPT/HCPCS: 62323; 72100; J1040; Q9967

== ENCOUNTER → 2022-03-10 13:42 | Outpatient (BNVA) | payer MEDICARE, SELFPAY | PROVIDERS: PCP Student in an Organized Health Care Education/Training Program; Visit Provider Physician Assistant | DX: I44.30 Unspecified atrioventricular block (principal); Z95.0 Presence of cardiac pacemaker; I48.91 Unspecified atrial fibrillation | CPT/HCPCS: 93280 ==

== ENCOUNTER → 2022-03-30 13:25 | Outpatient (CLI) | payer MEDICARE, SELFPAY ==
--- NOTE | 2022-03-30 12:45 | DI.RAD_ITS ---
Exam(s) XR KNEE LT 4V AP,LAT,IFEANYI,PAT EXAM: XR KNEE LT 4V AP,LAT,IFEANYI,PAT CLINICAL HISTORY: evaluate patella, new swelling, lt ant knee pain, tenderness lt patella,. TECHNIQUE: 2D digital imaging was performed of the left knee. Five images were obtained. Merchant, AP, lateral and PA tunnel views were obtained. COMPARISON: CR LEFT KNEE 3 VIEW COMPLETE from 10/20/2010 CR KNEES BILAT AP STANDING from 11/11/2010 FINDINGS: BONES: No acute fracture is present. No bony destructive lesion is seen. JOINTS: Degenerative changes are seen in the knee with joint space narrowing and periarticular spurri ng. The findings are marked at the patellofemoral joint. 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 No joint effusion is seen. SOFT TISSUE: Chronic well corticated calcifications are seen in the soft tissues anterior to the knee . IMPRESSION: Marked osteoarthritis of the knee. DATA REPOSITORY: RADIATION DOSE DELIVERED:
== END ==
PROVIDERS: PCP Student in an Organized Health Care Education/Training Program; Visit Provider Student in an Organized Health Care Education/Training Program
DX: M17.12 Unilateral primary osteoarthritis, left knee (principal)
CPT/HCPCS: 73564

== ENCOUNTER 2022-04-08 07:43 | Emergency (ER) | payer MEDICARE, SELFPAY ==
[2022-04-08 07:44] VITALS: BP 118/90; PULSE 81; RESP 18; TEMP 36.3; O2SAT 99
--- NOTE | 2022-04-08 08:31 | W.ED.GENAD ---
Discharge Plan Disposition Patient Disposition: Home Condition: Stable Discharge Details Clinical Impression: Knee pain, left anterior Primary Care Provider: Vicenta Freed ED Provider: Edin Pollock Home Meds and New Rx's Prescriptions: Continued (DME) compress.stocking,knee,reg,lrg Misc See Rx Instructions .ROUTE .MEDSUPPLY Qty: 1 0RF Rx Instructions: As directed, 20mmHg-30mmHg (pt unable to tolerate higher pressure) Mylanta Coat-Cool 1,200 mg-270 mg -80 mg/10 mL suspension PO (DME) lancing device with lancets [OneTouch Delica Plus Lanc Dev] Kit See Rx Instructions .ROUTE .MEDSUPPLY Qty: 1 0RF Rx Instructions: Monitor BS 2-3x/wk; E11.9, to achieve A1C under 7%, T 2 DM (DME) blood-glucose meter [OneTouch Verio Meter] Misc See Rx Instructions .ROUTE .MEDSUPPLY Qty: 1 0RF Rx Instructions: Monitor BS 2-3x/wk; E11.9, to achieve A1C under 7%, T 2 DM (DME) OneTouch Verio test strips Strip See Rx Instructions .ROUTE .MEDSUPPLY Qty: 100 3RF Rx Instructions: Monitor BS 2-3x/wk; E11.9, to achieve A1C under 7%, T 2 DM fluticasone propionate [Flovent HFA] 110 mcg/actuation HFA aerosol inhaler 2 puff Inhalation BID Qty: 3 3RF Rx Instructions: Rinse mouth after use gabapentin 100 mg capsule 100 mg PO TID PRN (Reason: burning leg pain) Qty: 90 1RF Rx Instructions: Radicular right leg pain, qHS & AM trial (DME) lancets [BD Microtainer Lancet] 30 gauge misc See Rx Instructions .Route Qty: 100 3RF Rx Instructions: monitor blood sugars once daily, T 2 DM E11.9, to achieve A1C goal under 7.5% Eliquis 5 mg tablet 5 mg PO BID Qty: 180 6RF albuterol sulfate [ProAir HFA] 90 mcg/actuation HFA aerosol inhaler 2 puff Inhalation Q4H PRN PRN (Reason: shortness of breath or wheezing) Qty: 3 1RF metoprolol tartrate 25 mg tablet 12.5 mg PO BID Qty: 90 3RF Rx Instructions: 0.5 tab bid amiodarone 200 mg tablet 200 mg PO DAILY Qty: 90 1RF Rx Instructions: Cont Kiesling (Cardio) Rx furosemide 20 mg tablet 20 mg PO DAILY Qty: 90 3RF pantoprazole 40 mg tablet,delayed release (DR/EC) 40 mg PO DAILY Rx Instructions: 09/30/21- increase to BID . Bhavani Coyne APRN [facility] 10/29/21 decrease to daily P.YOKO Coyne levothyroxine 100 mcg tablet 100 mcg PO DAILY Qty: 90 1RF multivitamin 1 EACH capsule 1 ea PO DAILY acetaminophen [Mapap Extra Strength] 500 MG tablet 1,000 mg PO TID PRN PRNQty: 120 0RF Discharge Instructions Instructions: Knee Pain (ED) Additional Instructions: I was able to review your x-ray from 03-30 which reveals osteoarthritis. Rest, elevate, cool and/or warm compresses every 2 hours for 20 minutes. [id number] Tylenol as directed as well as Lidoderm patches. Wear Ruben compression wrap as needed, advance activity as tolerated. I recommend using your walker as opposed to your cane as it is more stable. I was able to make you the orthopedic appointment on May 03 at 10 AM which is a 1 week sooner than your already scheduled appointment, you will also be placed on the cancellation list. Please watch for new or worsening symptoms and return to the ER for any concerns. Medical Decision Making This is an 82-year-old female who presents complaining of chronic left knee pain, no acute injury. Had an x-ray on 03-30 but did not get the results. I was able to review this x-ray reveals osteoarthritis. Patient reports that she has had multiple injections to her knee and they seem to help less and less as time goes on. She is unable to be seen by orthopedics until May 10. Clinically she appears well, nontoxic. Knee pain appears chronic in nature. No acute injury, I see no clear indication to repeat imaging. Exam is not consistent with DVT. No evidence of septic joint. Patient does have what appears to be a small effusion, given her treatment with apixaban, will defer aspiration at this time. Plan to provide p.o. Tylenol, Lidoderm patch, and a compression Ruben wrap with web rolling Patient reports some relief with her symptoms. She typically ambulates with a cane because she states the walker is too cumbersome. She was able to ambulate steadily using a walker throughout the ER. Pt schedueld to be seen by ortho on 05/10/22, concerned she can't wait that long. Ortho office contacted and appointment made for 05/03/22 at 10am, will also be placed on can cancellation list. Standard discharge and return precautions were provided. Patient understands, is agreeable to this plan, and has no additional questions or concerns upon discharge. This documentation was generated using [employer]ation system, please disregard any oddities of phrase or misspellings. Medical Records Medical records reviewed: Yes I reviewed the patient's medical records. HPI General Mode of arrival: EMS. Date/Time Provider Initiated Documentation: 04/08/22 07:47. Limitations to Documentation: no limitations. Information obtained by: patient and EMS. History of Present Illness 82 year old F presents to the emergency department with the chief complaint of L knee pain, described as severe, with intensity rated at 7. Quality is described as aching, and is localized to the left and lower extremity. Patient reports no radiation. Patient started experiencing this year(s) (Many) and it has been constant. No relieving factors improve symptom(s), Movement worsens symptoms . Patient notes no other symptoms.. Patient did receive the following treatments prior to arrival, none Related Data Home Medications Medication Instructions Recorded Confirmed multivitamin 1 ea PO DAILY 11/05/12 04/08/22 acetaminophen 500 mg tablet (Mapap 1,000 mg PO TID PRN PRN #120 tabs 12/03/16 04/08/22 Extra Strength) compress.stocking,knee,reg,lrg #1 ea 03/20/21 04/08/22 apixaban 5 mg tablet (Eliquis) 5 mg PO BID #180 tab-caps 06/15/21 04/08/22 calcium carb 1,200 mg-mag hydrox ml PO 06/23/21 03/30/22 270 mg-simeth 80 mg/10 mL oral susp (Mylanta Coat-Cool) albuterol sulfate 90 mcg/actuation 2 puff inhalation Q4H PRN PRN 06/24/21 04/08/22 aerosol inhaler (ProAir HFA) shortness of breath or wheezing ##3 blood sugar diagnostic (OneTouch #100 ea 07/24/21 04/08/22 Verio test strips) blood-glucose meter (OneTouch #1 ea 07/24/21 04/08/22 Verio Meter) fluticasone propionate 110 2 puff inhalation BID #3 07/24/21 04/08/22 mcg/actuation HFA aerosol inhaler inhalations (Flovent HFA) lancing device with lancets kit #1 ea 07/24/21 04/08/22 (OneTouch Delica Plus Lancing Device kit) lancets 30 gauge (BD Microtainer #100 ea 08/20/21 04/08/22 Lancet) metoprolol tartrate 25 mg tablet 12.5 mg PO BID #90 tabs 08/24/21 04/08/22 amiodarone 200 mg tablet 200 mg PO DAILY #90 tabs 11/04/21 04/08/22 furosemide 20 mg tablet 20 mg PO DAILY #90 tabs 11/04/21 04/08/22 pantoprazole 40 mg tablet,delayed 40 mg PO DAILY 11/04/21 04/08/22 release levothyroxine 100 mcg tablet 100 mcg PO DAILY #90 tab-caps 03/10/22 04/08/22 gabapentin 100 mg capsule 100 mg PO TID PRN burning leg pain 03/30/22 04/08/22 #90 caps Previous Rx's Medication Instructions Recorded acetaminophen 500 mg tablet (Mapap 1,000 mg PO TID PRN PRN #120 tabs 12/03/16 Extra Strength) compress.stocking,knee,reg,lrg #1 ea 03/20/21 apixaban 5 mg tablet (Eliquis) 5 mg PO BID #180 tab-caps 06/15/21 albuterol sulfate 90 mcg/actuation 2 puff inhalation Q4H PRN PRN 06/24/21 aerosol inhaler (ProAir HFA) shortness of breath or wheezing ##3 blood sugar diagnostic (OneTouch #100 ea 07/24/21 Verio test strips) blood-glucose meter (OneTouch #1 ea 07/24/21 Verio Meter) fluticasone propionate 110 2 puff inhalation BID #3 07/24/21 mcg/actuation HFA aerosol inhaler inhalations (Flovent HFA) lancing device with lancets kit #1 ea 07/24/21 (Aktivito Delica Plus Lancing Device kit) lancets 30 gauge (BD Microtainer #100 ea 08/20/21 Lancet) metoprolol tartrate 25 mg tablet 12.5 mg PO BID #90 tabs 08/24/21 amiodarone 200 mg tablet 200 mg PO DAILY #90 tabs 11/04/21 furosemide 20 mg tablet 20 mg PO DAILY #90 tabs 11/04/21 levothyroxine 100 mcg tablet 100 mcg PO DAILY #90 tab-caps 03/10/22 gabapentin 100 mg capsule 100 mg PO TID PRN burning leg pain 03/30/22 #90 caps Allergies Allergy/AdvReac Type Severity Reaction Status Date / Time ranitidine Allergy Severe WHEEZING Verified 04/08/22 07:49 cefadroxil Allergy Mild Verified 04/08/22 07:49 ciprofloxacin AdvReac Intermediate WEAKNESS Verified 04/08/22 07:49 pneumococcal 13-valent AdvReac Intermediate temp and Verified 04/08/22 07:49 conjugate to body aches [From Prevnar 13 (PF)] sucralfate AdvReac Intermediate N/V Verified 04/08/22 07:49 General Stated Complaint: Orthopedic DEXTER: 4 Review of Systems Constitutional Constitutional: Denies fever(s) Cardiovascular Cardiovascular: Denies chest pain and Denies dyspnea Respiratory Respiratory: Denies dyspnea Musculoskeletal Musculoskeletal: Reports arthralgias, Reports joint swelling, Denies numbness, Reports stiffness and Denies tingling Integumentary/Breasts Skin/Breast: Denies rash Neurologic Neurologic: Denies numbness and Denies tingling Hematologic/Lymphatic Hematologic/Lymphatic: Reports easy bleeding and Reports easy bruising REPLACED BY [facility] All Active Problems (Updated 04/08/22 @ 09:34 by DARNELL Hammond) Knee pain, left anterior (Acute) Lymphedema (Acute) nonpitting edema -- seems lymphedema -- appreciate pt eval Knee pain, left anterior (Acute) Pyrosis (Acute) Sensorineural hearing loss (Acute) Lesion of face (Acute) or BCCA left lateral canthus 09/14/[address] Dillon 09/22/21 sutures removed Left knee pain (Acute) DEPO MEDROL 01/14/22 Arthrocentesis @ [facility] (during hosp stay for atrial tach), NEG.. referred to local ortho ([facility]). High risk medications (not anticoagulants) long-term use (Acute) Amiodarone started, 07/2021 (after years on flecainide).. [ ] Ophtho, EP, Echo, PFTs .. short-term lasix. Cardiomyopathy (Acute) Due to atrial tachycardia.. xferred to [facility], PM reprogrammed. Amiodarone replacing flecainide. Low-dose diuretics (see 08/11/21 [facility] Cardio note).. Atrial tachycardia (Acute) per Cardiology, [facility] .. Admitted post xfer from [facility] ED (08/08/21). EF 50%. Amiodarone started; Flecainide stopped. Atrioventricular pacing seen on electrocardiogram (Acute) Atrial fibrillation (Acute 07/06/11) normal echo and cath 2008; flecanide Rx; apixiban; echo 09/2013 EF 60%.. Atrioventricular block (Acute 07/07/12) pacemaker placement 12/04/2013; 5 sec asystoles last interrogation, 03/2017. Pacemaker (Acute 09/16/17) Sees DARNELL Tejada ([facility]). Dual lead Medtronic pacemaker Adapta .. Placed 2013, Dr. Edin Robles. 99Medtronic dual lead pacemaker implanted 12/04/2013 .. Adapta [id number] [id number] .. RA Medtronic [id number], 11/2013.. RV [id number] 12/04/2013)) Tachycardia (Acute) Type 2 diabetes mellitus (Acute) Recent A1C increase, from pre-diabetes to DM this past year.. Edema (Acute) LE edema , R>L .. notable, possibly 2' Jardiance intolerance, but possible lymphedema (?) Medication intolerance (Acute) Unable to tolerate Jardiance (candidiasis!), Metformin. Vulvovaginal candidiasis (Acute) 2' Jardiance .. trial monostat or diflucan . STOP Jardiance if janae returns. Dysphagia, unspecified (Acute 07/07/12) EGD KD: mild esophagitis 10/[address] Ragsdale 09/23/[address] Duncan, [facility], [place], [place]. Impression: Gerd Dysphagia. Rule out secondary to esophageal ulcer,dysmotility, or from perhaps a failing Singh. recommeded: Upper GI Gerd protocaol discussed w/ pt. panel 2,B12 If pt continues sx, may want to repeat upper endoscopy. Plans to see her back in follwup. Gastroesophageal reflux disease (Acute 07/07/12) Managed with PPI for years, worsening x 2-3 months. Now associated with LUQ tenderness, 05/26/17. []H.pylori [] U/S LUQ ik IMPROVED with weight loss, 06/02.19, ik EGD rescheduled with Dr. Escobar (2' Margaret not yet taking appts @ [facility]), 05/26/17 .. Consulted, EGD sched for 06/29/17. 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 A1C goal 7.5 ... 7.1 today, 08/07/20. 6.8/6.9 in 11/2016. A1C 6.5 post weight loss and focused effort on reducing carbs/sweets. 06/02/18, ik A1C remains @ 6.5 08/2018, good job! 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 [facility] q6m x1 year, then annually. --[facility] 06/2016 Shakira Diaz MD Post-radiation association with new abd pain (?), ik, 05/26/17 Essential hypertension (01/18/13) FRS 13% .. Well controlled, 116/70 06/02/18, ik Exertional dyspnea (01/28/15) Failed fundoplication Family hx-breast malignancy (11/13/12) SISTER IN 60s High risk medications (not anticoagulants) long-term use Flecainide - started by Dr. Douglass History of postmenopausal bleeding Hot flashes Hot Flashes x 6 mos, 06/13/19. Hyperlipidemia (07/07/12) Hypomagnesemia Noted @ ED, 02/2021 .. replenished. Monitor [ ] Hypothyroidism (01/02/13) TSH 2.43 (05/2017) vs. >9 (02/2017). Cont @ same 88mcg. Impaired glucose tolerance (03/10/12) Leg edema Leg weakness With standing .. Hx lumbar stenosis .. Hx spinal injection (?) Macular pucker Multinodular goiter (12/19/15) Muscle spasm of left shoulder area Trapezius MM Spasm .. Neurogenic pain of right lower extremity (09/19/15) Osteoarth NOS-unspec (07/06/11) Pelvic pain (02/07/13) Piriformis syndrome of right side Postnasal drip (01/09/15) Primary osteoarthritis of right knee (01/10/17) s/p RT TKR Fall 2018 Right lumbar radiculopathy Sensorineural hearing loss of both ears Sensorineural hearing loss, bilateral (12/28/13) Spinal stenosis of lumbar region Symptomatic bradycardia Thyroid nodule (01/28/15) 01/01/15 US 4mm nodule isthmus 05/15/15 US 4.5 nodule isthmus, ?7x5 nodule right Trochanteric bursitis, right hip (05/19/16) Urge incontinence Surgical History Cardiac Cath, 2008 Cholecystectomy Colonoscopy - IV Sedation (03/17/16) EGD - MAC (06/29/17) Extraction of cataract B/L Hernia, hiatal (banding) History of Surgical Procedure a. Cholecystectomy. b. Bilateral cataract surgery. c. Hiatal hernia repair 2008. d. Esophagus stretching 2013 - Dr. Ragsdale. e. Pacemaker 12/04/2013 Hyseterectomy, Total Laparoscopic w/ BSO (07/01/16) +Endometrial cancer Pacemaker (12/04/13) Replacement of total knee joint (12/03/16) R knee Dr Del Cid sentinal lymph node dissection (07/01/16) NEG for mets from endometrium Status post right knee replacement Dr. Del Cid, Ortho. She is happy with knee, able to step down from sidewalk w/o fear per 03/02/18 appt discussion. COntinues to do well; seeing ortho for possible neuropathic pain (outer rt calf). upper GI Series (10/05/17) for sx of epigastric dysphagia,GERD. Done by Dr. Duncan. Impression: Moderate sized Hiatal Hernia. Marked gastroesophageal reflux. Family History Mother , old age at age 98. No problems noted. Father , Heart disease at age 64. Heart disease [place] Sister , Colon [place] Personal history of malignant neoplasm Sister , Heart problems at age 72. Personal history of malignant neoplasm Breast cancer, dx'ed in her 60s Heart disease Sister Hypertensive disorder, systemic arterial Diabetes Sister Diabetes Sister Hypertensive disorder, systemic arterial Brother , Parkinson's at age 75. Personal history of malignant neoplasm Brother Parkinson's disease Brother , Heart condition at age 62. Hypertensive disorder, systemic arterial Diabetes Brother Hypertensive disorder, systemic arterial Diabetes Social History Smoking/Tobacco Use Status: Never Smoking risk assessment performed?: Yes Alcohol Intake: never Drug use: Never Substance use type: does not use Adopted: No Foster care: No Housing: apartment Number of Children: 0 number of grandchildren: 0 Communication Needs: Corrective Lenses current occupation: retired from [employer] Pets and animals: No Current gender identity: female What is your relationship status?: Panel score (0-1 are the most socially isolated patients): 0 Seatbelt use: always Working smoke detector in home: Yes Fire extinguisher in home: Yes Carbon monox detector in home: Yes Firearms in home: No Do you feel safe at home: Yes Do you feel safe in your relationship?: Yes Exam Const General: cooperative, healthy appearing, comfortable and no acute distress Orientation: alert and awake [facility] Head: normal to inspection, normocephalic and atraumatic Mouth: moist mucous membranes Eyes Conjunctivae: conjunctivae normal Neck Neck: normal visual inspection, trachea midline and supple Resp Effort & Inspection: normal respiratory effort and able to speak in complete sentences Cardio Rate: regular rate Rhythm: abnormal rhythm irregularly irregular Skin General skin exam: no rashes or lesions noted Neuro General: patient alert, patient awake, moves all extremities and no focal motor deficits Cognition: normal cognition Speech: speech normal Gait: antalgic (Minimally) and gait assisted Method: walker Sensory Exam: no sensory deficits noted Extrem General: full ROM and capillary refill normal Other: Left knee with diffuse anterior discomfort, what appears to be a small effusion along the medial/anterior aspect. There is no warmth or erythema. There is no posterior discomfort, calf discomfort, calf swelling or erythema. Negative Homans' sign. Normal pedal pulse and capillary refill. Knee appears stable but pain increases with range of motion. Psych Appearance: grossly normal Mental Status: mental status grossly normal Course Vital Signs Vital signs: Vital Signs Temperature 36.3 C L 04/08/22 07:44 Pulse 81 04/08/22 07:44 Respiratory Rate 18 04/08/22 07:44 Blood Pressure 118/90 04/08/22 07:44 Pulse Oximetry 99 04/08/22 07:44 Temperature 36.3 C L 04/08/22 07:44 Temperature Source Temporal Artery Scan 04/08/22 07:44 Pulse 81 04/08/22 07:44 Respiratory Rate 18 04/08/22 07:44 Respiratory Effort Non-Labored 04/08/22 07:46 Blood Pressure 118/90 04/08/22 07:44 Blood Pressure Position Sitting 04/08/22 07:44 Pulse Oximetry 99 04/08/22 07:44 Oxygen Delivery Method Room Air 04/08/22 07:44 Oxygen Flow Rate 0 04/08/22 07:44 Pain Level 10 04/08/22 07:46
[2022-04-08] MEDS: Lidocaine 5% Patch 1 PATCH TP (08:38)
[2022-04-08] MEDS: Acetaminophen 325 MG TAB 650 MG PO (08:39)
== END 2022-04-08 10:00 | disposition home or self-care (01) ==
PROVIDERS: Emergency Provider Physician Assistant; PCP Student in an Organized Health Care Education/Training Program
DX: M25.562 Pain in left knee (principal); G89.29 Other chronic pain; I10 Essential (primary) hypertension; E11.9 Type 2 diabetes mellitus without complications; J45.909 Unspecified asthma, uncomplicated; E03.9 Hypothyroidism, unspecified; M17.11 Unilateral primary osteoarthritis, right knee; Z95.0 Presence of cardiac pacemaker; Z96.651 Presence of right artificial knee joint; Z79.51 Long term (current) use of inhaled steroids
CPT/HCPCS: 99283; 99284

== ENCOUNTER → 2022-04-12 09:55 | Outpatient (BNVA) | payer MEDICARE, SELFPAY | PROVIDERS: PCP Student in an Organized Health Care Education/Training Program; Referring Provider Student in an Organized Health Care Education/Training Program; Visit Provider Student in an Organized Health Care Education/Training Program | DX: M17.12 Unilateral primary osteoarthritis, left knee (principal) | CPT/HCPCS: 99213 ==

== ENCOUNTER 2022-04-15 02:21 | Outpatient (CLI) | payer MEDICARE, SELFPAY ==
[2022-04-15 09:56] LABS: HCT 38.8 % (36.0-46.0); MCH 32.7 pg (27.0-33.0); MCHC 33.5 % (32.0-36.0); MCV 98 fL (80-95); MPV 11.5 fL (8.0-11.0); Platelet Count 223 10^3/uL (130-400); RBC 3.97 10^6/uL (3.93-5.22); RDW 12.8 % (11.7-14.6); RDW-SD 46.4 fL; WBC 5.99 10^3/uL (4.4-10.8)
[2022-04-15 10:27] LABS: Anion Gap 4.3 mmol/L (3-11); BUN 13 mg/dL (7-18); CO2 33.7 mmol/L (21.0-32.0); CREATININE 0.9 mg/dL (0.55-1.02); Calcium 9.3 mg/dL (8.5-10.1); Chloride 101 mmol/L (98-107); Estimated GFR 63.43 (mL/min/1.73m2); Glucose 258 mg/dL (74-106); Potassium 3.6 mmol/L (3.5-5.1); Sodium 139 mmol/L (136-145)
[2022-04-15 10:42] LABS: ALT 20 U/L (14-59); AST 23 U/L (15-37); Albumin 3.6 g/dL (3.4-5.0); Alkaline Phosphatase 68 U/L (46-116); Bilirubin, Direct 0.2 mg/dL (0.0-0.2); Bilirubin, Total 0.6 mg/dL (0.2-1.0); TSH (W/Ref FT4) 4.23 uIU/mL (0.36-3.74); Total Protein 7.3 g/dL (6.4-8.2)
[2022-04-15 11:05] LABS: FREE T4 1.68 ng/dL (0.76-1.46)
[2022-04-15 12:34] LABS: Hemoglobin A1C 8.6 % (<5.7)
[2022-04-15 22:03] LABS: Lab Add On Test DONE
[2022-04-16 19:59] LABS: T3, Total 63 ng/dL (97-169)
[2022-04-18 14:18] LABS: T3,Free 2.1 pg/mL (2.8-5.3)
== END 2022-04-15 02:22 | disposition home or self-care (01) ==
LOC: LBO 02:21
PROVIDERS: PCP Student in an Organized Health Care Education/Training Program; Visit Provider Student in an Organized Health Care Education/Training Program
DX: I42.9 Cardiomyopathy, unspecified (principal); I48.91 Unspecified atrial fibrillation; Z79.899 Other long term (current) drug therapy; M25.562 Pain in left knee; Z01.818 Encounter for other preprocedural examination; E11.9 Type 2 diabetes mellitus without complications; R79.89 Other specified abnormal findings of blood chemistry
CPT/HCPCS: 36415; 80048; 80076; 85027; 83036; 84439; 84443; 84480; 84481

== ENCOUNTER 2022-04-29 02:26 | Outpatient (CLI) | payer MEDICARE, SELFPAY ==
[2022-04-30 15:44] LABS: Fructosamine 345 mcmol/L (200 - 285)
== END 2022-04-29 02:27 | disposition home or self-care (01) ==
LOC: LBO 02:26
PROVIDERS: PCP Student in an Organized Health Care Education/Training Program; Visit Provider Student in an Organized Health Care Education/Training Program
DX: E08.65 Diabetes mellitus due to underlying condition with hyperglycemia (principal); M17.12 Unilateral primary osteoarthritis, left knee; Z01.818 Encounter for other preprocedural examination
CPT/HCPCS: 36415; 82985

== ENCOUNTER 2022-05-17 15:21 | Outpatient (REF) | payer MEDICARE, SELFPAY ==
[2022-05-18 15:10] LABS: Fructosamine 294 mcmol/L (200 - 285)
== END 2022-05-17 15:22 | disposition home or self-care (01) ==
LOC: LBN 15:21
PROVIDERS: PCP Student in an Organized Health Care Education/Training Program; Visit Provider Student in an Organized Health Care Education/Training Program
DX: E11.65 Type 2 diabetes mellitus with hyperglycemia (principal)
CPT/HCPCS: 82985

== ENCOUNTER 2022-05-26 07:05 | Inpatient (IN) | payer MEDICARE, SELFPAY ==
[2022-05-26] VITALS (10 sets, daily range): BP systolic 93–126; BP diastolic 43–81; PULSE 60–79; RESP 12–18; TEMP 36–36.7; O2SAT 96–99; BMI 32.0
--- NOTE | 2022-05-26 07:30 | HPE_ITS ---
Assessment and Plan Assessment and plan (1) Arthropathy of left knee: Status: Acute Assessment and plan: Elaina is an 82-year-old who unfortunately had worsening and debilitating pain about the left knee.? She has failed a host of nonoperative options.? Previous injection has helped but only for a few weeks.? She has severe deformity of the patellofemoral joint with other signs of arthritis throughout the knee.? At this point, I think the best neck step is knee replacement. She was previously scheduled for this but unfortunately had worsening blood glucose control. She is now doing much better and desires to proceed with left knee replacement. Once again, reviewed the basic details of knee replacement surgery. I also explained the necessary time for rehabilitation following the procedure.? Furthermore, I went over in detail the possible complications of knee replacement.? These include but are not limited to bleeding, infection, pain, stiffness, weakness, damage to nerves, damage to vessels, damage to muscle and tendon, fracture, leg length inequality, wound healing complications, instability, component loosening, and blood clot.? Questions were answered.?.? After a review of the presented information and risks, Elaina desired to proceed.? I will plan to keep her overnight in the hospital and likely utilize home health services given her level of debilitation and deconditioning.? She has been following with her primary care team and cardiology regularly without any change.? She has responded very well to her diabetes medication with an acceptable fructosamine level.? We will follow her glucose levels while she is here in the hospital. She has held the apixaban and is ready for surgery today. History of Present Illness History of Present Illness Chief Complaint: Left Knee Pain Narrative: Elaina is an 82-year-old female who had seen previously for debilitating left knee pain. She had the acute onset of left knee pain last year which continue to worsen to the point that she was unable to ambulate and even required the use of pain medications. I saw her previously in March for complete history and physical to move forward with knee replacement. Unfortunately, her A1c became elevated. Her surgery was postponed and she is work diligently on her blood glucose control. She denies any chest pain or shortness of breath. She denies any fevers or chills. She is had no recent sick contacts. Her fructosamine level drawn last week was 294 which is acceptable to proceed with surgery. She continues have pain about the left knee. She has a pacemaker which has been functioning appropriately. Additionally, she has elevated TSH but yet persistently normal/high T4 readings which is being managed by her primary care team. Review of Systems All systems reviewed & are unremarkable except as noted in HPI and below PFSH All Active Problems (Updated 05/26/22 @ 09:16 by Castillo Del Cid MD) Arthropathy of left knee (Acute) Diabetes mellitus due to underlying condition, uncontrolled, with hyperglycemia (Acute) A1C rise due to inactivity 2' back/knee pain & steroid use.. winter 2021 Insulin dose changed (Acute) Elevated serum free T4 level (Acute) high TSH, High T4, 03/2022 ... Hx low TSH and high T4 (08/2021) Elevated TSH (Acute) Arthritis of left knee (Acute) Lymphedema (Acute) nonpitting edema -- seems lymphedema -- appreciate pt eval Knee pain, left anterior (Acute) Pyrosis (Acute) Sensorineural hearing loss (Acute) Left knee pain (Acute) DEPO MEDROL 01/14/22 [place]cent[place] [facility] [place]ach[place] NEG.. referred to local ortho ([facility]). Atrial tachycardia (Acute) per Cardiology, [facility] .. Admitted post xfer from [facility] ED (08/08/21). EF 50%. Amiodarone started; Flecainide stopped. Atrioventricular pacing seen on electrocardiogram (Acute) Atrial fibrillation (Acute 07/06/11) normal echo and cath 2008; flecanide Rx; apixiban; echo 09/2013 EF 60%.. Atrioventricular block (Acute 07/07/12) pacemaker placement 12/04/2013; 5 sec asystoles last interrogation, 03/2017. Pacemaker (Acute 09/16/17) Sees DARNELL Tejada ([facility]). Dual lead Medtronic pacemaker Adapta .. Placed 2013, Dr. Edin Robles. 99Medtronic dual lead pacemaker implanted 12/04/2013 .. Adapta ADDRO1 [id number] .. RA Medtronic [id number], 11/2013.. RV [id number] 12/04/2013)) Tachycardia (Acute) Type 2 diabetes mellitus (Acute) A1C jump 2' limited ambulation & steroid use. [ ] Insulin due to intolerance of PO Rx, ik, 03/2022.. Recent A1C increase, from pre-diabetes to DM this past year.. Edema (Acute) LE edema , R>L .. notable, possibly 2' Jardiance intolerance, but possible lymphedema (?) Medication intolerance (Acute) Unable to tolerate Jardiance (candidiasis!), Metformin. Vulvovaginal candidiasis (Acute) 2' Jardiance .. trial monostat or diflucan . STOP Jardiance if janae returns. Dysphagia, unspecified (Acute 07/07/12) EGD KD: mild esophagitis 10/[address] Ragsdale 09/23/[address] Duncan, [facility], [place], [place]. Impression: Gerd Dysphagia. Rule out secondary to esophageal ulcer,dysmotility, or from perhaps a failing Singh. recommeded: Upper GI Gerd protocaol discussed w/ pt. panel 2,B12 If pt continues sx, may want to repeat upper endoscopy. Plans to see her back in follwup. Gastroesophageal reflux disease (Acute 07/07/12) Managed with PPI for years, worsening x 2-3 months. Now associated with LUQ t enderness, 05/26/17. []H.pylori [] U/S LUQ ik IMPROVED with weight loss, 06/02.19, ik EGD rescheduled with Dr. Escobar (2' Margaret not yet taking appts @ [facility]), 05/26/17 .. Consulted, EGD sched for 06/29/17. note: s/p Singh, hernia repair, and esoph dilation (2013) 10/29/21 GI visit with f/u in 6w Atrophic gastritis without mention of hemorrhage (Acute 07/07/12) History of hiatal hernia (Acute) Esophagitis determined by biopsy (Acute) Reactive airway disease (Chronic) Medical History Asthma (01/18/13) possible asthma; PFTs normal 04/27/2012.07/2013 Cardiomyopathy Due to atrial tachycardia.. xfer[place] [facility] PM reprogrammed. Amiodarone replacing flecainide. Low-dose diuretics (see 08/11/21 [facility] [place] note).. 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 A1C goal 7.5 ... 7.1 today, 08/07/20. 6.8/6.9 in 11/2016. A1C 6.5 post weight loss and focused effort on reducing carbs/sweets. 06/02/18, ik A1C remains @ 6.5 08/2018, good job! 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 [facility] q6m x1 year, then annually. --[facility] [place] Shakira Diaz MD Post-radiation association with new abd pain (?), ik, 05/26/17 Essential hypertension (01/18/13) FRS 13% .. Well controlled, 116/70 06/02/18, ik Exertional dyspnea (01/28/15) Failed fundoplication Family hx-breast malignancy (11/13/12) SISTER IN 60s High risk medications (not anticoagulants) long-term use Flecainide - started by Dr. Douglass High risk medications (not anticoagulants) long-term use Amiodarone started, 07/2021 (after years on flecainide).. [ ] Ophtho, EP, Echo, PFTs .. short-term lasix. History of postmenopausal bleeding Hot flashes Hot Flashes x 6 mos, 06/13/19. Hyperlipidemia (07/07/12) Hypomagnesemia Noted @ ED, 02/2021 .. replenished. Monitor [ ] Hypothyroidism (01/02/13) TSH 2.43 (05/2017) vs. >9 (02/2017). Cont @ same 88mcg. Impaired glucose tolerance (03/10/12) Leg edema Leg weakness With standing .. Hx lumbar stenosis .. Hx spinal injection (?) Lesion of face or BCCA left lateral canthus 09/14/[address] Dillon 09/22/21 sutures removed Macular pucker Multinodular goiter (12/19/15) Muscle spasm of left shoulder area Trapezius MM Spasm .. Neurogenic pain of right lower extremity (09/19/15) Osteoarth NOS-unspec (07/06/11) Pelvic pain (02/07/13) Piriformis syndrome of right side Postnasal drip (01/09/15) Primary osteoarthritis of right knee (01/10/17) s/p RT TKR Fall 2018 Right lumbar radiculopathy Sensorineural hearing loss of both ears Sensorineural hearing loss, bilateral (12/28/13) Spinal stenosis of lumbar region Symptomatic bradycardia Thyroid nodule (01/28/15) 01/01/15 US 4mm nodule isthmus 05/15/15 US 4.5 nodule isthmus, ?7x5 nodule right Trochanteric bursitis, right hip (05/19/16) Urge incontinence Surgical History Cardiac Cath, 2008 Cholecystectomy Colonoscopy - IV Sedation (03/17/16) EGD - MAC (06/29/17) Extraction of cataract B/L Hernia, hiatal (banding) History of Surgical Procedure a. Cholecystectomy. b. Bilateral cataract surgery. c. Hiatal hernia repair 2008. d. Esophagus stretching 2013 - Dr. Ragsdale. e. Pacemaker 12/04/2013 Hyseterectomy, Total Laparoscopic w/ BSO (07/01/16) +Endometrial cancer Pacemaker (12/04/13) Replacement of total knee joint (12/03/16) R knee Dr Del Cid sentinal lymph node dissection (07/01/16) NEG for mets from endometrium Status post right knee replacement Dr. Del Cid, Ortho. She is happy with knee, able to step down from sidewalk w/o fear per 03/02/18 appt discussion. COntinues to do well; seeing ortho for possible neuropathic pain (outer rt calf). upper GI Series (10/05/17) for sx of epigastric dysphagia,GERD. Done by Dr. Duncan. Impression: Moderate sized Hiatal Hernia. Marked gastroesophageal reflux. Family History Mother , old age at age 98. No problems noted. Father , Heart disease at age 64. Heart disease [place] Sister , Colon [place] Personal history of malignant neoplasm Sister , Heart problems at age 72. Personal history of malignant neoplasm Breast cancer, dx'ed in her 60s Heart disease Sister Hypertensive disorder, systemic arterial Diabetes Sister Diabetes Sister Hypertensive disorder, systemic arterial Brother , Parkinson's at age 75. Personal history of malignant neoplasm Brother Parkinson's disease Brother , Heart condition at age 62. Hypertensive disorder, systemic arterial Diabetes Brother Hypertensive disorder, systemic arterial Diabetes Social History Smoking/Tobacco Use Status: Never Smoking risk assessment performed?: Yes Alcohol Intake: never Drug use: Never Substance use type: does not use Adopted: No Foster care: No Housing: apartment Number of Children: 0 number of grandchildren: 0 Communication Needs: Corrective Lenses current occupation: retired from [employer] Pets and animals: No Current gender identity: female What is your relationship status?: Panel score (0-1 are the most socially isolated patients): 0 Seatbelt use: always Working smoke detector in home: Yes Fire extinguisher in home: Yes Carbon monox detector in home: Yes Firearms in home: No Do you feel safe at home: Yes Do you feel safe in your relationship?: Yes Meds Allergies and Home Medications Allergies Allergy/AdvReac Type Severity Reaction Status Date / Time ranitidine Allergy Severe WHEEZING Verified 05/26/22 08:05 cefadroxil Allergy Mild Verified 05/26/22 08:05 empagliflozin AdvReac Severe Other (See Unverified 05/26/22 08:05 [From Jardiance] Comment) metformin AdvReac Severe Diarrhea Unverified 05/26/22 08:05 ciprofloxacin AdvReac Intermediate WEAKNESS Verified 05/26/22 08:05 pneumococcal 13-valent AdvReac Intermediate temp and Verified 05/26/22 08:05 conjugate to body aches [From Prevnar 13 (PF)] sucralfate AdvReac Intermediate N/V Verified 05/26/22 08:05 Home Medications Medication Instructions Recorded Confirmed Type multivitamin 1 ea PO DAILY 11/05/12 05/26/22 History compress.stocking,knee,reg,lrg #1 ea 03/20/21 05/25/22 Rx apixaban 5 mg tablet (Eliquis) 5 mg PO BID #180 tab-caps 06/15/21 05/26/22 Rx calcium carb 1,200 mg-mag hydrox 10 ml PO PRN PRN 06/23/21 05/26/22 History 270 mg-simeth 80 mg/10 mL oral susp (Mylanta Coat-Cool) albuterol sulfate 90 mcg/actuation 2 puff inhalation Q4H PRN PRN 06/24/21 05/26/22 Rx aerosol inhaler (ProAir HFA) shortness of breath or wheezing ##3 blood sugar diagnostic (WorkSnugTouch #100 ea 07/24/21 05/25/22 Rx Verio test strips) blood-glucose meter (WorkSnugTouch #1 ea 07/24/21 05/25/22 Rx Verio Meter) fluticasone propionate 110 2 puff inhalation BID #3 07/24/21 05/26/22 Rx mcg/actuation HFA aerosol inhaler inhalations (Flovent HFA) lancing device with lancets kit #1 ea 07/24/21 05/25/22 Rx (qualifyor Delica Plus Lancing Device kit) lancets 30 gauge (BD Microtainer #100 ea 08/20/21 05/25/22 Rx Lancet) metoprolol tartrate 25 mg tablet 12.5 mg PO BID #90 tabs 08/24/21 05/26/22 Rx furosemide 20 mg tablet 20 mg PO DAILY #90 tabs 11/04/21 05/26/22 Rx pantoprazole 40 mg tablet,delayed 40 mg PO DAILY 11/04/21 05/26/22 History release levothyroxine 100 mcg tablet 100 mcg PO DAILY #90 tab-caps 03/10/22 05/26/22 Rx gabapentin 100 mg capsule 100 mg PO TID PRN burning leg pain 03/30/22 05/26/22 Rx #90 caps acetaminophen 500 mg tablet 1,000 mg PO TID PRN PRN knee and 04/15/22 05/26/22 Rx leg pain #120 tabs tramadol 50 mg tablet 50 mg PO Q8H PRN pain #15 tabs 04/15/22 05/26/22 Rx insulin glargine 100 unit/mL (3 10 unit (0.1 mL) subcut DAILY for 04/19/22 05/26/22 Rx mL) subcutaneous pen mgmt of diabetes, E11.9, with A1C goal < 7.5 #15 mL pen needle, diabetic 31 gauge x #100 ea 04/20/22 05/25/22 Rx 3/16 (BD Ultra-Fine Mini Pen Needle) amiodarone 200 mg tablet 200 mg PO DAILY #90 tabs 05/17/22 05/26/22 Rx Exam Const General: cooperative, healthy appearing, comfortable and no acute distress Resp Auscultation: clear to auscultation bilaterally Cardio Rate: regular rate Rhythm: regular rhythm Extrem Other: Left knee with no overlying skin changes per no signs of infection. Range of motion is 10 to 110 degrees. Pain with range of motion. Pain over the medial joint line. Results Labs Labs: Laboratory Results - last 24 hr 05/26/22 07:20 COVID-19 Source Nasal/Nares SARS-CoV-2 (PCR) Negative Last Vital Signs Temp 36.7 C 05/26/22 07:50 Pulse 79 05/26/22 07:50 Resp 16 05/26/22 07:50 BP 125/81 05/26/22 07:50 Pulse Ox 98 05/26/22 07:50
[2022-05-26 07:33] LABS: Source Nasal/Nares
[2022-05-26] MEDS: Gabapentin 300 MG CAP PO ×2 (08:00→23:27)
[2022-05-26] MEDS: Celecoxib 200 MG CAP 400 MG PO (08:00)
[2022-05-26] MEDS: Acetaminophen 500 MG TAB 1000 MG PO ×3 (08:00→20:34)
[2022-05-26 08:05] LABS: COVID-19 PCR Negative (Negative)
[2022-05-26] MEDS: Lactated Ringers 1,000 ML 80 ML IV ×2 (08:10→17:54)
--- NOTE | 2022-05-26 08:11 | W.ANESPRE ---
General Info Date of Service Date Performed: 05/26/22 Height: 5 ft 1 in Weight: 76.9 kg Body Mass Index (BMI): 32.0 Surgical Procedure: Operation Date: 05/26/22 09:40 Proposed Procedure Side Surgeon p Knee Total Arthroplasty, Cemented CR Left Castillo Del Cid MD Meds Allergies and Home Medications Allergies Allergy/AdvReac Type Severity Reaction Status Date / Time ranitidine Allergy Severe WHEEZING Verified 05/26/22 08:05 cefadroxil Allergy Mild Verified 05/26/22 08:05 empagliflozin AdvReac Severe Other (See Unverified 05/26/22 08:05 [From Jardiance] Comment) metformin AdvReac Severe Diarrhea Unverified 05/26/22 08:05 ciprofloxacin AdvReac Intermediate WEAKNESS Verified 05/26/22 08:05 pneumococcal 13-valent AdvReac Intermediate temp and Verified 05/26/22 08:05 conjugate to body aches [From Prevnar 13 (PF)] sucralfate AdvReac Intermediate N/V Verified 05/26/22 08:05 Home Medication Medication Instructions Recorded multivitamin 1 ea PO DAILY 11/05/12 compress.stocking,knee,reg,lrg #1 ea 03/20/21 apixaban 5 mg tablet (Eliquis) 5 mg PO BID #180 tab-caps 06/15/21 calcium carb 1,200 mg-mag hydrox 10 ml PO PRN PRN 06/23/21 270 mg-simeth 80 mg/10 mL oral susp (Mylanta Coat-Cool) albuterol sulfate 90 mcg/actuation 2 puff inhalation Q4H PRN PRN 06/24/21 aerosol inhaler (ProAir HFA) shortness of breath or wheezing ##3 blood sugar diagnostic (d[employer] TechnologiesTouch #100 ea 07/24/21 Verio test strips) blood-glucose meter (OneTouch #1 ea 07/24/21 Verio Meter) fluticasone propionate 110 2 puff inhalation BID #3 07/24/21 mcg/actuation HFA aerosol inhaler inhalations (Flovent HFA) lancing device with lancets kit #1 ea 07/24/21 (d[employer] TechnologiesTouch Delica Plus Lancing Device kit) lancets 30 gauge (BD Microtainer #100 ea 08/20/21 Lancet) metoprolol tartrate 25 mg tablet 12.5 mg PO BID #90 tabs 08/24/21 furosemide 20 mg tablet 20 mg PO DAILY #90 tabs 11/04/21 pantoprazole 40 mg tablet,delayed 40 mg PO DAILY 11/04/21 release levothyroxine 100 mcg tablet 100 mcg PO DAILY #90 tab-caps 03/10/22 gabapentin 100 mg capsule 100 mg PO TID PRN burning leg pain 03/30/22 #90 caps acetaminophen 500 mg tablet 1,000 mg PO TID PRN PRN knee and 04/15/22 leg pain #120 tabs tramadol 50 mg tablet 50 mg PO Q8H PRN pain #15 tabs 04/15/22 insulin glargine 100 unit/mL (3 10 unit (0.1 mL) subcut DAILY for 04/19/22 mL) subcutaneous pen mgmt of diabetes, E11.9, with A1C goal < 7.5 #15 mL pen needle, diabetic 31 gauge x #100 ea 04/20/2207/08 (BD Ultra-Fine Mini Pen Needle) amiodarone 200 mg tablet 200 mg PO DAILY #90 tabs 05/17/22 Current Visit Medications: Current Medications Generic Name Dose Route Start Last Admin Trade Name Freq PRN Reason Stop Dose Admin Acetaminophen 1,000 mg 05/26/22 06:00 05/26/22 08:00 Acetaminophen 500 Mg Tab PO 05/26/22 16:00 1,000 mg PREOP FLORIAN Administration Celecoxib 400 mg 05/26/22 06:00 05/26/22 08:00 Celecoxib 200 Mg Cap PO 05/26/22 16:00 400 mg PREOP FLORIAN Administration Gabapentin 300 mg 05/26/22 06:00 05/26/22 08:00 Gabapentin 300 Mg Cap PO 05/26/22 16:00 300 mg PREOP FLORIAN Administration Tranexamic Acid 1,000 mg/ 60 mls @ 360 mls/hr 05/26/22 06:00 Sodium Chloride IVPB 05/26/22 16:00 PREOP FLORIAN Ringer's Solution 1,000 mls @ 80 mls/hr 05/26/22 06:00 IV 06/24/22 23:59 INFUSION FLORIAN Cefazolin Sodium/Dextrose 2 gm in 50 mls @ 100 mls/hr 05/26/22 06:00 Ancef Duplex IVPB 06/24/22 23:59 PREOP FLORIAN IV Miscellaneous Supplies 1 each 05/26/22 06:00 Iv Access IV 06/24/22 23:59 DIRECTED FLORIAN Sodium Chloride 0 ml 05/26/22 06:00 Normal Saline Flush 10 Ml Syr IV 06/24/22 23:59 PRN PRN Sodium Chloride 0 ml 05/26/22 06:00 Normal Saline 10 Ml Vial IJ 06/24/22 23:59 DIRECTED PRN Sterile Water 0 ml 05/26/22 06:00 Water,Injection,Sterile 10 Ml Vial IJ 06/24/22 23:59 DIRECTED PRN PFSH Active Problems Active Problems: Problem Status Onset Code Diabetes mellitus due to underlying condition, uncontrolled, with hyperglycemia E08.65 Insulin dose changed Z79.4 Elevated serum free T4 level R79.89 Elevated TSH R79.89 Arthritis of left knee M17.12 Lymphedema I89.0 Knee pain, left anterior M25.562 Pyrosis R12 Sensorineural hearing loss H90.5 Left knee pain M25.562 Atrial tachycardia I47.1 Atrioventricular pacing seen on electrocardiogram R94.31 Atrial fibrillation 07/06/11 I48.91 Atrioventricular block 07/07/12 I44.30 Pacemaker 09/16/17 Z95.0 Tachycardia R00.0 Type 2 diabetes mellitus E11.9 Edema R60.9 Medication intolerance Z78.9 Vulvovaginal candidiasis B37.3 Dysphagia, unspecified 07/07/12 R13.10 Gastroesophageal reflux disease 07/07/12 K21.9 Atrophic gastritis without mention of hemorrhage 07/07/12 K29.40 History of hiatal hernia Z87.19 Esophagitis determined by biopsy K20.90 Reactive airway disease J45.909 Medical History Medical History Asthma (01/18/13) possible asthma; PFTs normal 04/27/2012.07/2013 Cardiomyopathy Due to atrial tachycardia.. xfer[place] to [facility] [place] [facility] [place] PM reprogrammed. Amiodarone replacing flecainide. Low-dose diuretics (see 08/11/21 [facility] [place]. 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 A1C goal 7.5 ... 7.1 today, 08/07/20. 6.8/6.9 in 11/2016. A1C 6.5 post weight loss and focused effort on reducing carbs/sweets. 06/02/18, ik A1C remains @ 6.5 08/2018, good job! 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 [facility] q6m x1 year, then annually. --[facility] [place] 06/2016 Shakira Diaz MD Post-radiation association with new abd pain (?), ik, 05/26/17 Essential hypertension (01/18/13) FRS 13% .. Well controlled, 116/70 06/02/18, ik Exertional dyspnea (01/28/15) Failed fundoplication Family hx-breast malignancy (11/13/12) SISTER IN 60s High risk medications (not anticoagulants) long-term use Flecainide - started by Dr. Douglass High risk medications (not anticoagulants) long-term use Amiodarone started, 07/2021 (after years on flecainide).. [ ] Ophtho, EP, Echo, PFTs .. short-term lasix. History of postmenopausal bleeding Hot flashes Hot Flashes x 6 mos, 06/13/19. Hyperlipidemia (07/07/12) Hypomagnesemia Noted @ ED, 02/2021 .. replenished. Monitor [ ] Hypothyroidism (01/02/13) TSH 2.43 (05/2017) vs. >9 (02/2017). Cont @ same 88mcg. Impaired glucose tolerance (03/10/12) Leg edema Leg weakness With standing .. Hx lumbar stenosis .. Hx spinal injection (?) Lesion of face or BCCA left lateral canthus 09/14/[address] Dillon 09/22/21 sutures removed Macular pucker Multinodular goiter (12/19/15) Muscle spasm of left shoulder area Trapezius MM Spasm .. Neurogenic pain of right lower extremity (09/19/15) Osteoarth NOS-unspec (07/06/11) Pelvic pain (02/07/13) Piriformis syndrome of right side Postnasal drip (01/09/15) Primary osteoarthritis of right knee (01/10/17) s/p RT TKR Fall 2018 Right lumbar radiculopathy Sensorineural hearing loss of both ears Sensorineural hearing loss, bilateral (12/28/13) Spinal stenosis of lumbar region Symptomatic bradycardia Thyroid nodule (01/28/15) 01/01/15 US 4mm nodule isthmus 05/15/15 US 4.5 nodule isthmus, ?7x5 nodule right Trochanteric bursitis, right hip (05/19/16) Urge incontinence Medical History Comments:: 05/26/22 - used inhaler at 0600am Surgical History Surgical History Cardiac Cath, 2008 Cholecystectomy Colonoscopy - IV Sedation (03/17/16) EGD - MAC (06/29/17) Extraction of cataract B/L Hernia, hiatal (banding) History of Surgical Procedure a. Cholecystectomy. b. Bilateral cataract surgery. c. Hiatal hernia repair 2008. d. Esophagus stretching 2013 - Dr. Ragsdale. e. Pacemaker 12/04/2013 Hyseterectomy, Total Laparoscopic w/ BSO (07/01/16) +Endometrial cancer Pacemaker (12/04/13) Replacement of total knee joint (12/03/16) R knee Dr Del Cid sentinal lymph node dissection (07/01/16) NEG for mets from endometrium Status post right knee replacement Dr. Del Cid, Ortho. She is happy with knee, able to step down from sidewalk w/o fear per 03/02/18 appt discussion. COntinues to do well; seeing ortho for possible neuropathic pain (outer rt calf). upper GI Series (10/05/17) for sx of epigastric dysphagia,GERD. Done by Dr. Duncan. Impression: Moderate sized Hiatal Hernia. Marked gastroesophageal reflux. Tobacco Smoking/Tobacco Use Status: Never Alcohol Alcohol Intake: never Substance Use Substance use: Never Substance use type: does not use Vital Signs and Lab Results Vital Signs Most Recent Vital Signs in EMR: Most Recent Vital Signs Temp Pulse Resp BP Pulse Ox 36.7 C 79 16 125/81 98 05/26/22 07:50 05/26/22 07:50 05/26/22 07:50 05/26/22 07:50 05/26/22 07:50 Point of Care Results Point of Care Results: Finger Stick Blood Glucose 157 05/26/22 07:46 Lab Results Blood Type / Crossmatch: No Data to Display Complete Blood Count: No Data to Display Complete Metabolic Panel: No Data to Display Liver Function Panel: No Data to Display Coagulation Panel: No Data to Display Cardiac Panel: No Data to Display Arterial Blood Gas: No Data to Display Venous Blood Gas: No Data to Display Pancreas Panel: No Data to Display Thyroid Panel: No Data to Display Infectious Disease: Coronavirus (COVID-19)(PCR) Negative (Negative) 05/26/22 07:20 Coronavirus 2019 Source Nasal/Nares 05/26/22 07:20 Blood Cultures: No Data to Display Toxicology Panel: No Data to Display Imaging and Studies Imaging and Studies Study information below may be from another EMR and interpreted by another provider. Please see original notes in EMR for more complete details. EKG Summary: Conclusion Atrial-paced complexes...other complexes also detected Probable left ventricular hypertrophy...multiple LVH criteria 09/09/21 Stress Test Summary: Conclusion This is a pharmacologic nuclear stress test paired with low-level exercise Resting EKG showed atrial pacing, ventricular sensing At peak exercise there was atrial and ventricular pacing, peak heart rate was 120 Reported heart rates of 190 at peak exercise were inaccurate A resting myocardial perfusion imaging study alone was performed, this showed no evidence of prior myocardial infarction. Perfusion appeared normal Resting scan was reviewed with Dr. Toure from radiology 02/23/21 Pulmonary Function Summary: Normal pulmonary function testing Note: When compared to 04/27/12, lung function is stable. 10/05/21 Anesthesia Assessment and Plan Anesthesia History Personal History: No History of Anesthesia Complications Family History: No Family History of Anesthesia Complications Exercise Tolerance Exercise Tolerance: Metabolic Equivalents<4 Cardiac & Pulmonary Exam Cardiac Exam: Normal S1/S2 Heart Sounds, Heart Murmur Present and Other Pulmonary Exam: Clear Bilateral Breath Sounds Implantable Cardiac Device Does patient have a Pacemaker or an ICD?: Yes Device Manager Clinical Applications:: [employer] [id number] Reason for Placement:: AV Block Date of Last Device Interrogation:: 02/2022 Airway Exam Known Difficult Airway: No Mallampati Class: 1 Mouth Opening: Normal (> 3cm) Thyromental Distance: Greater than 3 cm Neck Range of Motion: Full ROM Neck Circumference: Normal Teeth Condition: Normal Dentition (Some chipped, none loose. Prominent front teeth. ) ASA Classification ASA Score: ASA 3 Emergency Case?: No NPO Status NPO Status: NPO Clears >2 hours, Solids >8 hours Anesthesia Plan Resuscitation Status: Full Code Anesthesia Technique: Spinal Anesthesia Airway Planned: Natural Airway Monitors Used: Standard Monitors Preoperative Comments:: BS 157 @ 0746 Last Plavix dose 05/22/22
[2022-05-26] MEDS: ceFAZolin 2 GM/50 ML BAG IVPB (09:27)
--- NOTE | 2022-05-26 10:11 | W.ANESNERVE ---
Nerve Block Single Injection Procedure Date and Time Date Performed: 05/26/22 Procedure Start: 08:55 Location Where Procedure Performed Procedure Location: Day Surgery Unit Reason Performed: Postoperative Analgesia Requesting Provider: Castillo Del Cid Timeout Performed Timeout Performed: Yes Monitoring Used ECG, Blood Pressure, SpO2 and See EMR for corresponding vital signs Sterility Sterility: Hand Hygiene, Surgical Cap, Surgical Mask, Sterile Gloves, Sterile Drape/Sheet and Chlorhexidine Sedation Given During Procedure Sedation Given (Indicate Dose Given): Versed IV Dose:: 1 mg Patient Mental Status Patient Mental Status: Sedate with meaningful communication Nerve Block 1st Nerve Block: Laterality: Left Block Type: Adductor Canal Ultrasound Image Saved?: Yes Needle / Catheter Used: 100mm SonoPlex II Local Anesthetic Bolus (Indicate Dose Given): Lidocaine used for local infiltration of skin, Injected in 3-5ml increments after negative blood aspiration, Blood noted on aspiration (Needle withdrawn, line cleared, no further blood noted.) and Bupivacaine 0.25% Dose:: 15 ml Additives (Indicate Dose Given): None Ultrasound: Sterile probe cover and gel used Nerve Stimulator: Not Used Paresthesia: None Procedure Tolerated: No Complications Procedure Outcome: Successful Performed By: Irasema Yanez
--- NOTE | 2022-05-26 13:44 | W.ANESPOSTOP ---
Postoperative Evaluation Date, Time and Location Date Performed: 05/26/22 Time Performed: 11:49 Patient Location: PACU Vital Signs Most Recent Imported Vital Signs: Most Recent Vital Signs Temp Pulse Resp BP Pulse Ox 36.1 C L 67 18 115/68 97 05/26/22 13:03 05/26/22 13:03 05/26/22 13:03 05/26/22 13:03 05/26/22 13:03 Pain Score Most Recent Pain Score: Most Recent Pain Score Pain Level [left knee] 3 05/26/22 13:03 Pain Level 05/26/22 13:39 Assessment Mental Status: Awake (Alert & Oriented to Patient Baseline) Airway and Respiratory Function: Patent airway with normal (patient baseline) respiratory exam Cardiovascular Function: Hemodynamically Stable Hydration Status: Adequately Hydrated Nausea & Vomiting: No Nausea or Vomiting Pain: Pain is tolerable per patient Peripheral Nerve Block: Regional nerve block not resolved at time of post operative discharge
[2022-05-26] MEDS: ceFAZolin 1 GM/50 ML BAG IVPB ×2 (15:13→23:27)
--- NOTE | 2022-05-26 15:45 | PT.INIE ---
Date of service: 05/26/22 Time of Service: 03:45 PT Notes Visit Reasons: Left Knee DJD Physical Therapy Inpatient Initial Evaluation Date: 05/26/2022 Referring Doctor: DARNELL Sorto PT Orders: PT CONSULT: S/P Ortho Surgery Precautions: Fall. Standard. WBAT on the L LE with AD. Patient Profile/Admitting Diagnosis: Patient with arthropahty of L knee S/P R total knee arthroplasty on postoperative day 0. PMHX: All Active Problems?(Updated 05/26/22 @ 09:16 by Castillo Del Cid MD) Arthropathy of left knee (Acute) Diabetes mellitus due to underlying condition, uncontrolled, with hyperglycemia (Acute) A1C rise due to inactivity 2' back/knee pain & steroid use.. winter 2021 Insulin dose changed (Acute) Elevated serum free T4 level (Acute) high TSH, High T4, 03/2022 ... Hx low TSH and high T4 (08/2021)Elevated TSH (Acute) Arthritis of left knee (Acute) Lymphedema (Acute) nonpitting edema -- seems lymphedema -- appreciate pt eval Knee pain, left anterior (Acute) Pyrosis (Acute) Sensorineural hearing loss (Acute) Left knee pain (Acute) DEPO MEDROL 01/14/22 Arthrocentesis @ [facility] (during hosp stay for atrial tach), NEG.. referred to local ortho ([facility]). Atrial tachycardia (Acute) per Cardiology, [facility] .. Admitted post xfer from [facility] ED (08/08/21). EF 50%. Amiodarone started; Flecainide stopped.Atrioventricular pacing seen on electrocardiogram (Acute) Atrial fibrillation (Acute 07/06/11) normal echo and cath 2008; flecanide Rx; apixiban; echo 09/2013 EF 60%.. Atrioventricular block (Acute 07/07/12) pacemaker placement 12/04/2013; 5 sec asystoles last interrogation, 03/2017. Pacemaker (Acute 09/16/17) Sees DARNELL Tejada ([facility]). Dual lead Medtronic pacemaker? Adapta .. Placed 2013, Dr. Edin Robles.? 99 Medtronic dual lead pacemaker implanted 2013 .. Adapta ADDRO1? [id number] .. RA? Medtronic [id number], 11/2013.. RV [id number]? 12/04/2013)) Tachycardia (Acute) Type 2 diabetes mellitus (Acute) A1C jump 2' limited ambulation & steroid use. [ ] Insulin due to intolerance of PO Rx, ik, 03/2022.. Recent A1C increase, from pre-diabetes to DM this past year.. Edema (Acute) LE edema , R>L .. notable, possibly 2' Jardiance intolerance, but possible lymphedema (?)Medication intolerance (Acute) Unable to tolerate Jardiance (candidiasis!), Metformin. Vulvovaginal candidiasis (Acute) 2' Jardiance .. trial monostat or diflucan . STOP Jardiance if janae returns. Dysphagia, unspecified (Acute 07/07/12) EGD KD: mild esophagitis 10/[address] Ragsdale 09/23/[address] Duncan, [facility], [place], [place]. Impression: Gerd Dysphagia. Rule out secondary to esophageal ulcer,dysmotility, or from perhaps a failing Singh. recommeded: Upper GI Gerd protocaol discussed w/ pt. panel 2,B12 If pt continues sx, may want to repeat upper endoscopy. Plans to see her back in follwup. Gastroesophageal reflux disease (Acute 07/07/12) Managed with PPI for years, worsening x 2-3 months. Now associated with LUQ tenderness, 05/26/17. []H.pylori [] U/S LUQ ik IMPROVED with weight loss, 06/02.19, ik EGD rescheduled with Dr. Escobar (2' Margaret not yet taking appts @ [facility]), 05/26/17 .. Consulted, EGD sched for 06/29/17. note: s/p Singh, hernia repair, and esoph dilation (2013) 10/29/21 GI visit with f/u in 6w Atrophic gastritis without mention of hemorrhage (Acute 07/07/12) History of hiatal hernia (Acute) Esophagitis determined by biopsy (Acute) Reactive airway disease (Chronic) Medical History? Asthma (01/18/13) possible asthma; PFTs normal 04/27/2012.07/2013 Cardiomyopathy Due to atrial tachycardia.. xferred to [facility], PM reprogrammed. Amiodarone replacing flecainide. Low-dose diuretics (see 08/11/21 [facility] Cardio note).. 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 A1C goal 7.5 ... 7.1 today, 08/07/20. 6.8/6.9 in 11/2016. A1C 6.5 post weight loss and focused effort on reducing carbs/sweets. 06/02/18, ik A1C remains @ 6.5 08/2018, good job! 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 [facility] q6m x1 year, then annually. --[facility] 06/2016 Shakira Diaz MD Post-radiation association with new abd pain (?), ik, 05/26/17 Essential hypertension (01/18/13) FRS 13% .. Well controlled, 116/70 06/02/18, ik Exertional dyspnea (01/28/15) Failed fundoplication Family hx-breast malignancy (11/13/12) SISTER IN 60s High risk medications (not anticoagulants) long-term use Flecainide - started by Dr. DouglassHigh risk medications (not anticoagulants) long-term use Amiodarone started, 07/2021 (after years on flecainide).. [ ] Ophtho, EP, Echo, PFTs .. short-term lasix.History of postmenopausal bleeding Hot flashes Hot Flashes x 6 mos, 06/13/19.Hyperlipidemia (07/07/12) Hypomagnesemia Noted @ ED, 02/2021 .. replenished. Monitor [ ] Hypothyroidism (01/02/13) TSH 2.43 (05/2017) vs. >9 (02/2017). Cont @ same 88mcg. Impaired glucose tolerance (03/10/12) Leg edema Leg weakness With standing .. Hx lumbar stenosis .. Hx spinal injection (?) Lesion of face or BCCA left lateral canthus 09/14/[address] Dillon 09/22/21 sutures removedMacular pucker Multinodular goiter (12/19/15) Muscle spasm of left shoulder area Trapezius MM Spasm .. Neurogenic pain of right lower extremity (09/19/15) Osteoarth NOS-unspec (07/06/11) Pelvic pain (02/07/13) Piriformis syndrome of right side Postnasal drip (01/09/15) Primary osteoarthritis of right knee (01/10/17) s/p RT TKR Fall 2018Right lumbar radiculopathy Sensorineural hearing loss of both ears Sensorineural hearing loss, bilateral (12/28/13) Spinal stenosis of lumbar region Symptomatic bradycardia Thyroid nodule (01/28/15) 01/01/15 US 4mm nodule isthmus 05/15/15 US 4.5 nodule isthmus, ?7x5 nodule right Trochanteric bursitis, right hip (05/19/16) Urge incontinence Surgical History? Cardiac Cath, 2008 Cholecystectomy Colonoscopy - IV Sedation (03/17/16) EGD - MAC (06/29/17) Extraction of cataract B/LHernia, hiatal (banding) History of Surgical Procedure a. Cholecystectomy. b. Bilateral cataract surgery. c. Hiatal hernia repair 2008. d. Esophagus stretching 2013 - Dr. Ragsdale. e. Pacemaker 12/04/2013Hyseterectomy, Total Laparoscopic w/ BSO (07/01/16) +Endometrial cancer Pacemaker (12/04/13) Replacement of total knee joint (12/03/16) R knee Dr Del Cid sentinal lymph node dissection (07/01/16) NEG for mets from endometrium Status post right knee replacement Dr. Del Cid, Ortho. She is happy with knee, able to step down from sidewalk w/o fear per 03/02/18 appt discussion. COntinues to do well; seeing ortho for possible neuropathic pain (outer rt calf). upper GI Series (10/05/17) for sx of epigastric dysphagia,GERD. Done by Dr. Duncan. Impression: Moderate sized Hiatal Hernia. Marked gastroesophageal reflux. Social History/Home Situation: Lives in an independent longterm facility in [place], [place] with a ramp to the building entrance. Has a friend who has been providing transportation needs lately as she had been having issues with her L knee. Independent with all indoor and outdoor ambulation using SPC. Occasionally uses a FWW. Prepares own meals and does her own groceries. Manages home chores on her own. Equipment Owned/DME: FWW, SPC Subjective: Reports pain in L knee at 4-5/10 initially with movement of left leg onto edge of bed prior to sitting up and during initial ambulation but felt better later in the walk. Denies headache, chest pain, and lightheadedness throughout. Did report fatigue which limited ambulation distance minimally. Agreeable to home health PT. Objective: General Observation: Supine in bed. JEANINE wraps to L LE. Cyocuff to L knee. IV in R UE. Mental Status: Alert and oriented as to person, place, time, and purpose. Able to pay attention, focus, and respond appropriately. Pain: 4-5/10 in L knee Vital Signs: WNl as closley monitored by nursing staff ROM: Right Lower Extremity: Hip flexion WFL. Hip abduction WFL. Knee flexion WFL. Ankle dorsiflexion WFL. Ankle plantarflexion WFL. Left Lower Extremity: Hip flexion WFL. Hip abduction WFL. Knee flexion 45 degrees to 90 degrees. Knee extension -45 degrees. Ankle dorsiflexion WFL. Ankle plantarflexion WFL. Strength: Right Lower Extremity: Hip flexors 4/5. Hip abductors 4/5. Knee flexors 4/5. Knee extensors 4/5. Ankle dorsiflexors 4/5. Ankle plantarflexors 4/5. Left Lower Extremity: Hip flexors 4-/5. Hip abductors 4-/5. Knee flexors 3-/5. Knee extensors 3-/5. Ankle dorsiflexors 4-/5. Ankle plantarflexors 4-/5. Bed Mobility/Transfers: Supine to sit minimal assist to L LE Sit to stand minimal assist Stand to sit contact guard assist Bed to reclining chair contact guard assist Gait: Instructed patient with level surface ambulation of 60 feet requiring contact guard assist. Step-to gait pattern. Abiola decreased. Gait mildly antalgic. Thoracic kyphosis. Balance: Static Sitting: Normal Dynamic Sitting: Normal Static Standing: Fair Dynamic Standing: Fair Special Tests: Mobility Limitations Standardized Measure [facility] AM-PAC 6 clicks Basic Mobility Inpatient Short Form: Raw Score: 18 CMS Score: 47% deficit Informed Consent/Education: Patient was instructed in purpose of PT consult and plan of care. Agreeable to proceed with established PT POC to achieve personal goals. Will provide HEP training and written HEP prior to discharge. Assessment: Patient with arthropahty of L knee S/P R total klnee arthroplasty on postoperative day 0. Will benefit from pre-medication for pain to maximize transfers and ambulation performance. Patient presents with clinical signs and symptoms consistent with current/admitting diagnoses that have resulted to mobility limitations, gait instability, generalized weakness, and overall ADL decline as demonstrated by the following impairment level findings: 1. Decreased strength to L knee major muscle groups 2. Impaired standing balance 3. Impaired activity tolerance 4. Limitation of joint range of motion in L knee Impairments are contributing to the following functional limitations: 1. Decline in bed mobility skills 2. Decline in transfer skills 3. Difficulty with ambulation without assistive device and physical assistance 4. Increased completion time for mobility ADL performance 5. Increased risk for falls 6. Difficulty with managing steps alone safely Patient is assessed as a 04648 moderate complexity based on the following: History: 82-year-old female with past medical history as indicated above Examination: Demonstrable impairment in strength, balance, and mobility level with underlying impairments and functional limitations as exhibited above as well as deficit score of 47% utilizing the [facility] Mobility Inpatient Short Form Presentation: Evolving Decision Makin moderate complexity Goals: Goals X1 week 1. Supine-Sit independent 2. Sit-Supine independent 3. Sit-Stand independent 4. Stand-Sit independent with Fww 5. Bed-Chair independent with FWW 6. Chair-Bed independent with FWW 7. Independent gait on level surface with use of FWW for at least 300 feet without report of pain nor dyspnea Plan of Care/Treatment Plan: 1-2x/day, 7 days/week x 1 week. Plan of care has been reviewed with the HOME CARE COORDINATOR providing the service under Physical Therapy direction. Initiate Physical Therapy intervention for pain management as needed, strengthening, bed mobility, transfers, gait, stairs, balance training, and use of assistive device. DISCHARGE RECOMMENDATIONS: [] Home with no services [] [X] Home with services. Home when medically cleared by orthopedic surgeon/hospitalist. Recommend home health PT services in order to progress mobility level using least restrictive assistive ambulatory device, assess home safety, identify additional equipment needs, and establish a functional maintenance program that will increase ability of patient to remain at home. [] Home with outpatient PT [] [] SNF for continued rehabilitation [] [] [facility] [] [] SNF versus LTC based on ability to participate and progress [] TREATMENT CODE/TIME: 18298 x 20 minutes, 43403 x 25 minutes begining at 15:45 PM. Thank you for the opportunity to participate in the care of this patient. Jaja Treadwell PT, DPT, CLT [facility] [place], [place]
[2022-05-26] MEDS: Insulin Aspart 300 UNITS/3 ML PEN SC (17:02)
--- NOTE | 2022-05-26 20:30 | ROE_ITS ---
Date of service: 05/26/22 Time of Service: 10:45 Operative Note Operative Note DATE OF PROCEDURE: 05/26/22 PRE-OP DIAGNOSIS: Left Knee Osteoarthritis POST-OP DIAGNOSIS: same PROCEDURE: Left Total Knee Replacement SURGEON: Castillo Del Cid ANESTHESIA TYPE: Spinal Refer to Anesthesia Record ESTIMATED BLOOD LOSS: 300 PATHOLOGY: none sent COMPLICATIONS: None Patient was transported to: PACU Patient's condition: stable Implants: 1. Depuy Attune Cruciate Retaining Femoral Component, Size 4 2. Depuy Attune Rotating Platform Tibial Component, Size 3 3. Depuy Attune 4x10mm CR,RP Poly 4. Depuy Attune Patellar Component, Size 29 Indications: I have seen Elaina in clinic for symptoms of knee arthritis, confirmed with radiographic findings. She has exhausted nonoperative methods and was having significant limitations in daily function and desired better function and less pain. I discussed the technical details of a knee replacement. I explained the risks of the procedure to include, but not limited to, bleeding, infection, pain, stiffness, fracture, damage to nerves and vessels, damage to muscles and tendons, loosening, need for repeat procedure, blood clot and cardiopulmonary demise. Despite these risks, Elaina elected to proceed. Findings: There was significant signs of arthritis throughout the knee with severe bony changes of the patella and the trochlea. She also had bronze colored synovium fitting with a diagnosis of hemarthrosis.. Procedure Description: Elaina was greeted in the preoperative holding area where the correct side was identified and marked. The consent was reviewed with the patient and signed. The history and physical was updated. All questions were answered. Preoperative mediacations were administered: Acetaminophen 1000mg, Celebrex 400mg, and Gabapentin 300mg. An adductor canal block was then administered by the anesthesia team in the PACU. Elaina was taken back to the operating room. A spinal anesthestic was then administered. The patient was placed into the supine position on the operating room table. A nonsterile tourniquet was placed high onto the leg but only used for cementing. Posts were placed for positioning during the procedure. All b dianne prominences were well padded. Prophylactic antibiotics in the form of Cefazolin were administered. 1g of Tranxemic Acid was given intravenously within 30 minutes of incision. The left leg was then prepped with Chloraprep and draped in a standard fashion with impervious stockinette and extremity drape. A second prep with Chloraprep was performed prior to placing Ioband. A timeout to confirm correct identity, side and site, procedure, allergies, anesthesia, and medical concerns was performed. With the knee in some flexion, a midline incision was made overlying the knee. Full thickness skin flaps were raised once the extensor mechanism was encountered. These were raised medially and laterally. Any bleeding was controlled with electrocautery. Once the extensor mechanism was fully exposed, a medial parapatellar arthrotomy was performed in a flexed position. All bleeding from the arthrotomy and the geniculate arteries was coagulated. A medial subperiosteal peel was performed with electrocautery to the midcoronal plane. The fat pad was removed while keeping the patellar tendon protected. The anterior distal femur synovium was removed for later visualization. The ACL and PCL were resected and the anterior horn of the lateral meniscus was transected. The knee was then flexed with the patella everted. Large osteophytes from the tibia were removed. Large osteophytes from the femur were removed. There was a significant groove worn into the trochlea and the distal-anterior femur. The synovium of the knee was bronze-colored consistent with recurrent hemarthrosis. A synovectomy was performed. Using a step drill, and based on preoperative templating, the femoral canal was entered. This was done with a step drill without any difficulty. The intramedullary distal femoral cut guide was inserted, set to a 5 degree valgus cut and 9mm cut thickness. The distal femoral cut guide was then held in position and pinned. With the soft tissues protected, the distal cut was performed. This was passed over a few times to ensure a planar cut. I then turned attention to the tibia. The extramedullary guide was placed onto the leg. The distal aspect was slid m edial to adjust for position of center of ankle and stay in line with shaft of the tibia. Approximately 3-5 degrees of posterior slope was kept in the proximal cutting guide. The center of the guide was aligned with the PCL. The stylus was used to assess cut thickness. The medial side, most involved side, was set for a 6mm cut, corresponding to 9mm laterally. This was then held in position and pinned into place with 2 additional pins and a cross pin for stability. The medial and lateral collateral ligaments were protected and the cut was performed. With this completed, it was assessed and noted to be of appropriate dimensions. The guide was removed. A spacer block was inserted and the knee was brought into extension. The 8mm spacer block provided full extension, without hyperextension and with stability of both the medial and lateral collateral ligaments was assessed. The pins from the femur and the tibia were then removed. The distal femur was then sized. The anterior stylus was placed onto the lateral ridge of the anterior femur. This indicated a size 4 femur. The external rotation of the guide was adjusted to 5 degrees to match the epicondylar axis, perpendicular to [place]?s line. The 4-in-1 cutting guide was the placed. The posterior medial femur cut was evaluated and appeared of good thickness. The spacer block was inserted underneath the cutting guide and stability was confirmed in 90 degrees of flexion. An adam wing was used to confirm appropriate position of the anterior cut to avoid notching. This cutting guide was ensured to be flush on the cut surface and then pinned into place with headed pins. While protecting the soft tissues, quad tendon, and collateral ligaments, the anterior and posterior cuts were performed with a saw. The central two pins were removed and the posterior and anterior chamfers were cut next. The notch-cutting guide was placed. This was pinned to lateralize the femoral component as much as possible while keeping it flush on the cut surface. This was then pinned into position. A reciprocating saw was used to make the small notch cut. A trial CR femoral component was then inserted, impacted down to the cut surfaces, and the lug holes were drilled. A provisional trial tibial component was placed and the knee was brought through range of motion. There was noted to be excellent extension and flexion. There was no significant instability. The patella was tracking without thumbs. The tibial cut surface was fully exposed. The medial and lateral menisci were removed. The tibia was then sized as a 4. The tibia had been previously marked during trialing to correspond to the center of the tibial component to help with rotation. The trial was aligned to this shabana, approximately rotated to the medial 1/3rd of the tibial tubercle. The trial was pinned into place. The tibia was prepared with a reamer and a keel punch. The knee was then brought into extension and the patella was measured as 17mm. Using the patellar clamp, this was resected to a flat surface with at least 13mm of thickness remaining. The size 29 patella fit the best. This was oriented and then clamped into position. The lugs were drilled. The trial components were removed. The final components, except for the polyethylene were opened on the back table. The periosteal and capsular tissues, especially posteriorly, around the knee were then systematically injected with a periarticular cocktail consisting of 246mg of Ropivacaine, 0.5mg of Epinephrine, 0.08mg of Clonidine, and 30mg of Ketorolac, diluted to 100cc.. The tourniquet was then inflated to 275mmHg. The knee was thoroughly irrigated with a pulse lavage and dried. On the back table, with the implants opened, the cement was mixed. 2 batches of medium viscosity cement were prepared with vacuum assistance. After the cement was ready it was placed on to the back side of the tibial and femoral component. Cement was manual pressurized and impregnated into the cut surface of the tibia. The tibial component was then inserted into the cut surface and impacted into position. Excess cement was removed and the component was reimpacted. Again, excess cement was removed and our attention was then turned to the femur. The femoral cut surface was once again dried and cement was manually impacted into the cut surface. The femoral component was lined with the lug holes and impacted. Excess cement was removed. It was ensured to be down against the cut surface. The trial polyethylene was then inserted and the leg was brought out into full extension for the duration of the cement curing process, approximately 18min. Cement was lastly manually impacted into the cut surface of the patella and the patellar button was clamped into position and held. During this process attention was turned to the gutters of the knee and for all interfaces for any excess cement. While the cement was hardening, the knee was irrigated with Surgiphor Betadine solution. It was allowed to sit in the knee for 3 minutes and then it was thoroughly irrigated with saline. After the cement had finally cured, approximately 18min, the clamp was removed from the patella and the knee was taken through range of motion. A size 10mm polyethylene component provided the best range of motion and stability with less than 2mm gapping with medial and lateral stress and full extension without significant hyperextension. The patella was tracking with a no-thumbs technique. The trial poly was removed and once again the knee was checked for any loose, excess, or errant cement. The poly component was then inserted into position after cleaning and drying the tibial tray. The capsule was then reapproximated with a No. 1 Vicryl at multiple locations. The capsule was finally closed with a No. 2 Stratafix, barbed suture. The tourniquet was then released and the arthrotomy appeared watertight without significant bleeding. The second dosing of 1g TXA was started. Deep tissues were then reapproximated with 0 Vicryl and 2-0 Vicryl. The skin was closed with a running 3-0 Monocryl in a subcuticular fashion. This was reinforced with skin glue. A Mepilex silver dressing was applied along with a [id number] JEANINE wrap. A CryoCuff was applied. Elaina was transferred to the hospital bed without difficulty an suffering no apparent complication. Elaina has a good prognosis. Physical therapy will start today and without restrictions, weight-bearing as tolerated. Home medicine of kaity will be used for DVT prophylaxis.
[2022-05-26] MEDS: Apixaban 5 MG TAB PO (20:33)
[2022-05-26] MEDS: Celecoxib 200 MG CAP PO (20:33)
[2022-05-26] MEDS: Mometasone 220 MCG 14 DOSE INHALER 2 PUFF IH (20:34)
[2022-05-27] VITALS (7 sets, daily range): BP systolic 98–112; BP diastolic 56–78; PULSE 61–73; RESP 14–18; TEMP 36.1–36.5; O2SAT 92–99
[2022-05-27] MEDS: Lactated Ringers 1,000 ML 80 ML IV (05:49)
[2022-05-27] MEDS: Levothyroxine 100 MCG TAB PO (05:49)
[2022-05-27] MEDS: Mometasone 220 MCG 14 DOSE INHALER 2 PUFF IH ×2 (07:50→21:04)
--- NOTE | 2022-05-27 08:19 | PDOC.CMIN ---
- If Service Date Differs Date of service: 05/27/22 Time of Service: 08:19 Care Management Initial Assess REASON FOR HOSPITALIZATION:: Left knee DJD PAST MEDICAL HISTORY/PAST SURGICAL HISTORY:: All Active Problems (Updated 05/26/22 @ 09:16 by Castillo Del Cid MD). Arthropathy of left knee (Acute). Diabetes mellitus due to underlying condition, uncontrolled, with hyperglycemia (Acute). A1C rise due to inactivity 2' back/knee pain & steroid use.. winter 2021. Insulin dose changed (Acute). Elevated serum free T4 level (Acute). high TSH, High T4, 03/2022 ... Hx low TSH and high T4 (08/2021). Elevated TSH (Acute). Arthritis of left knee (Acute). Lymphedema (Acute). nonpitting edema -- seems lymphedema -- appreciate pt eval. Knee pain, left anterior (Acute). Pyrosis (Acute). Sensorineural hearing loss (Acute). Left knee pain (Acute). DEPO MEDROL 01/14/22. Arthrocentesis @ [facility] [place] (during hosp stay for atrial tach), NEG.. referred to local ortho ([facility] Atrial tachycardia (Acute). per Cardiology, [facility] [place] .. Admitted post xfer from [facility] ED (08/08/21). EF 50%. Amiodarone started; Flecainide stopped. Atrioventricular pacing seen on electrocardiogram (Acute). Atrial fibrillation (Acute 07/06/11). normal echo and cath 2008; flecanide Rx; apixiban; echo 09/2013 EF 60%.. Atrioventricular block (Acute 07/07/12). pacemaker placement 12/04/2013; 5 sec asystoles. last interrogation, 03/2017. Pacemaker (Acute 09/16/17). Sees DARNELL Tejada ([facility]). Dual lead Medtronic pacemaker Adapta .. Placed 2013, Dr. Edin Robles. 99Medtronic dual lead pacemaker implanted 12/04/2013 .. Adapta ADDRO1 [id number] .. RA Medtronic [id number], 11/2013.. RV [id number] 12/04/2013)). Tachycardia (Acute). Type 2 diabetes mellitus (Acute). A1C jump 2' limited ambulation & steroid use. [ ] Insulin due to intolerance of PO Rx, ik, 03/2022.. Recent A1C increase, from pre-diabetes to DM this past year.. Edema (Acute). LE edema , R>L .. notable, possibly 2' Jardiance intolerance, but possible lymphedema (?). Medication intolerance (Acute). Unable to tolerate Jardiance (candidiasis!), Metformin. Vulvovaginal candidiasis (Acute). 2' Jardiance .. trial monostat or diflucan . STOP Jardiance if janae returns. Dysphagia, unspecified (Acute 07/07/12). EGD KD: mild esophagitis. 10/[address] Ragsdale. 09/23/[address] Duncan, [facility], [place], [place]. Impression: Gerd. Dysphagia. Rule out secondary to esophageal ulcer,dysmotility, or from perhaps a failing Singh. recommeded: Upper GI. Gerd protocaol discussed w/ pt. panel 2,B12. If pt continues sx, may want to repeat upper endoscopy. Plans to see her back in follwup. Gastroesophageal reflux disease (Acute 07/07/12). Managed with PPI for years, worsening x 2-3 months. Now associated with LUQ tenderness, 05/26/17. []H.pylori [] U/S LUQ ik IMPROVED with weight loss, 06/02.19, ik. EGD rescheduled with Dr. Escobar (2' Margaret not yet taking appts @ [facility]), 05/26/17 .. Consulted, EGD sched for 06/29/17. note: s/p Singh, hernia repair, and esoph dilation (2013). 10/29/21 GI visit with f/u in 6w. Atrophic gastritis without mention of hemorrhage (Acute 07/07/12). History of hiatal hernia (Acute). Esophagitis determined by biopsy (Acute). Reactive airway disease (Chronic). Medical History . Asthma (01/18/13). possible asthma; PFTs normal 04/27/2012.07/2013. Cardiomyopathy. Due to atrial tachycardia.. xferred to [facility] [place], PM reprogrammed. Amiodarone replacing flecainide. Low-dose diuretics (see 08/11/21 [facility] [place] [place] Cardio note).. 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 Dr Jeffrey Cardenas. Controlled type 2 diabetes mellitus without complication, without long-term current use of insulin (03/26/16). POOR CTL, 01/2021 (A1C 7.6) .. A1C goal 7.5 ... 7.1 today, 08/07/20. 6.8/6.9 in 11/2016. A1C 6.5 post weight loss and focused effort on reducing carbs/sweets. 06/02/18, ik A1C remains @ 6.5 08/2018, good job! Deformity of toenail. Endometrial cancer (07/19/16). --Stage 1A grade 2 endometrioid endometrial cancer (no lymph node mets). --Recommend surveillance; pt will see Dr. [facility] q6m x1 year, then annually. --[facility] [place] 06/2016 Shakira Diaz MD. Post-radiation association with new abd pain (?), ik, 05/26/17. Essential hypertension (01/18/13). FRS 13% .. Well controlled, 116/70 06/02/18, ik. Exertional dyspnea (01/28/15). Failed fundoplication. Family hx-breast malignancy (11/13/12). SISTER IN 60s. High risk medications (not anticoagulants) long-term use. Flecainide - started by Dr. Douglass. High risk medications (not anticoagulants) long-term use. Amiodarone started, 07/2021 (after years on flecainide).. [ ] Ophtho, EP, Echo, PFTs .. short-term lasix. History of postmenopausal bleeding. Hot flashes. Hot Flashes x 6 mos, 06/13/19. Hyperlipidemia (07/07/12). Hypomagnesemia. Noted @ ED, 02/2021 .. replenished. Monitor [ ]. Hypothyroidism (01/02/13). TSH 2.43 (05/2017) vs. >9 (02/2017). Cont @ same 88mcg. Impaired glucose tolerance (03/10/12). Leg edema. Leg weakness. With standing .. Hx lumbar stenosis .. Hx spinal injection (?). Lesion of face. or BCCA left lateral canthus. 09/14/[address] Dillon. 09/22/21 sutures removed. Macular pucker. Multinodular goiter (12/19/15). Muscle spasm of left shoulder area. Trapezius MM Spasm .. Neurogenic pain of right lower extremity (09/19/15). Osteoarth NOS-unspec (07/06/11). Pelvic pain (02/07/13). Piriformis syndrome of right side. Postnasal drip (01/09/15). Primary osteoarthritis of right knee (01/10/17). s/p RT TKR Fall 2018. Right lumbar radiculopathy. Sensorineural hearing loss of both ears. Sensorineural hearing loss, bilateral (12/28/13). Spinal stenosis of lumbar region. Symptomatic bradycardia. Thyroid nodule (01/28/15). 01/01/15 US 4mm nodule isthmus. 05/15/15 US 4.5 nodule isthmus, ?7x5 nodule right. Trochanteric bursitis, right hip (05/19/16). Urge incontinence. Surgical History . Cardiac Cath, 2008. Cholecystectomy. Colonoscopy - IV Sedation (03/17/16). EGD - MAC (06/29/17). Extraction of cataract. B/L. Hernia, hiatal (banding). History of Surgical Procedure. a. Cholecystectomy. b. Bilateral cataract surgery. c. Hiatal hernia repair 2008. d. Esophagus stretching 2013 - Dr. Ragsdale. [place]. Pacemaker 12/04/2013. Hyseterectomy, Total Laparoscopic w/ BSO (07/01/16). +Endometrial cancer. Pacemaker (12/04/13). Replacement of total knee joint (12/03/16). R knee. Dr Del Cid. sentinal lymph node dissection (07/01/16). NEG for mets from endometrium. Status post right knee replacement. Dr. Del Cid, Ortho. She is happy with knee, able to step down from sidewalk w/o fear per 03/02/18 appt discussion. COntinues to do well; seeing ortho for possible neuropathic pain (outer rt calf). upper GI Series (10/05/17). for sx of epigastric dysphagia,GERD. Done by Dr. Duncan. Impression: Moderate sized Hiatal Hernia. Marked gastroesophageal reflux. PREVIOUS FUNCTIONAL STATUS/SOCIAL/FAMILY SUPPORTS:: Elaina is retired and lives alone at the [facility]. Elaina shares that she's lived there for the past 8 years and feels very supported by the friends she's made. Elaina is independent at baseline and uses a cane PRN. She has a car but drives infrequently. Her friends typically transport her otherwise she uses [facility]. CURRENT FUNCTIONAL STATUS:: Elaina is sitting in her chair when CM met with her. She is awake, alert and easily engages in conversation. Per pt, she is managing quite well in the community. She defers a referral to [facility] or [facility] at this time. ADVANCE DIRECTIVES:: None on file. Has patient been provided with info about the portal/API?: Yes Did the patient sign up for the portal?: No CODE STATUS:: Full Code INSURANCE COVERAGE / FINANCIAL ISSUES:: [facility]. Medicare CURRENT HOME/COMMUNITY SERVICES/EQUIPMENT:: [employer] PRIMARY CARE PHYSICIAN:: Vicenta Freed POTENTIAL DISCHARGE NEEDS:: [facility] RN/PT/OT. Discharge plan. Follow up appointments PATIENT/FAMILY EDUCATION NEEDS:: Review discharge instructions, limitations, medications and plan to follow up with community providers. Discuss ask me three and goals of self care. TRANSPORTATION:: Via private vehicle with friend. PLAN:: Anticipate Elaina will discharge home with New [facility] RN/PT/OT when medically ready per provider. She will transport via private vehicle with her friend Denice. She will follow up with community providers and discharge plan of care as prescribed.
[2022-05-27] MEDS: ceFAZolin 1 GM/50 ML BAG IVPB (08:47)
[2022-05-27] MEDS: Insulin Aspart 300 UNITS/3 ML PEN SC ×3 (08:48→17:09)
[2022-05-27] MEDS: Acetaminophen 500 MG TAB 1000 MG PO ×2 (08:56→14:14)
[2022-05-27] MEDS: Amiodarone 200 MG TAB PO (09:00)
[2022-05-27] MEDS: Apixaban 5 MG TAB PO (09:00)
[2022-05-27] MEDS: Furosemide 20 MG TAB PO (09:01)
[2022-05-27] MEDS: Celecoxib 200 MG CAP PO (09:01)
[2022-05-27] MEDS: Insulin Glargine 300 UNITS/3 ML PEN 10 UNITS SC (09:02)
[2022-05-27] MEDS: Multivitamin TAB 1 TAB PO (09:03)
[2022-05-27] MEDS: Pantoprazole 40 MG TABCR PO (09:03)
[2022-05-27] MEDS: Metoprolol 12.5 MG TAB PO ×2 (09:03→21:02)
[2022-05-27] MEDS: Gabapentin 100 MG CAP PO (09:07)
--- NOTE | 2022-05-27 11:45 | PT.INTREAT ---
Date of service: 05/27/22 Time of Service: 09:00 PT Notes Visit Reasons: Left Knee DJD Inpatient Physical Therapy Treatment Note [facility] Date: 05/27/2022 PRECAUTIONS: Fall, WBAT R, Activity as tolerated SUBJECTIVE: Elaina is pleasant and agreeable to participating in PT. She reports that she does not feel that she can manage independently at home at this time. She states that she does not want to discharge to a rehab if she does not have to. OBJECTIVE: PAIN: Patient c/o pain in R knee with all knee flexion, and mobility activities BED MOBILITY/TRANSFERS Sit-supine: Min A with HOB flat Sit-stand: CGA Stand-sit: CGA GAIT Assistive Device: FWW Weight bearing: WBAT R Assist: SBA Distance: 60' in a.m.; 70' in p.m. Deviation: Slow pacing, short step height and length, antalgic gait, step-to to step-through pattern THEREX: Patient was issued and instructed in a HEP for LE strengthening and stabilization, to include: ankle pumps, quad sets, glute sets, heel slides, SLR. Patient requires assist due to pain. She is also guarding against flexing past about 30 degrees due to pain. ASSESSMENT: Patient tolerated session with c/o pain in R knee area with all activity and specifically with knee flexion. She was able to tolerate a slight progression in gait distance with FWW support and with SBA. Due to pain, she does not appear ready to discharge to home, where she is alone and independent. PLAN: Continue with global strengthening, gait and transfer training for improved mobility and activity tolerance. TREATMENT CODE/TIME: Session 1: 30 minutes; [id number], [id number] (09:00) Session 2: 33 minutes; [id number], [id number] (12:40)
[2022-05-27] MEDS: oxyCODONE 5 MG TAB PO ×2 (12:15→21:03)
--- NOTE | 2022-05-27 14:14 | CHAPLAIN ---
Elaina was up in the chair when I visited. She said her knee was is hurting, but she expects that. This is her second knee replacement. She was very pleasant and easily engaged in a conversation. Elaina said her family is a nephew, and he isn't able to visit, but she has many friends that she can rely on and they have been visiting. Elaina seems to be comfortable being here.
--- NOTE | 2022-05-27 18:12 | W.PM.PROGNOT ---
Date of Service Date of service: 05/27/22 Time of Service: 15:15 Assessment and Plan Assessment and plan (1) Arthritis of left knee: Status: Acute Assessment and plan: Elaina is a 82-year-old status post left knee replacement POD #1. Unfortunate, she is having some pain. She had significant deformity of the patellofemoral joint and it seems most her pain is related to this as well as notable swelling. She already has ecchymosis throughout the leg which is likely result of her anticoagulation. I will plan to hold her Eliquis for the next a day or 2. I will continue to encourage her mobilization. We will try ketorolac IV to help with pain. Continue with physical therapy. Hopeful to discharge to home with home health services in the upcoming few days. I will also check labs in the morning. Subjective Subjective Interval history since last seen: Elaina has been having some pain, especially with flexion. She has had some relief with the medications although she is reluctant to take them. She has been able to work with PT although with some pain. No F/C. NO SOB. Exam Narrative Exam Narrative: Sitting up in the hospital bed. NAD. AAOx3. LLE has notable ecchymosis and swelling. Knee joint is still compressible. Leg is soft but edemtaous. +ADF/APF/EHL/FHL. SILT DP/SP/Tib. [place] DP pulse. Able to demonstrate SLR but with pain. Time Spent with Patient Time Spent with Patient: <25 minutes Time was spent: obtaining and/or reviewing separately otained hiistory and ordering medications,tests, procedures
[2022-05-27] MEDS: Gabapentin 300 MG CAP PO (21:03)
[2022-05-28] VITALS (7 sets, daily range): BP systolic 88–111; BP diastolic 48–68; PULSE 63–74; RESP 16–19; TEMP 36.1–36.8; O2SAT 94–99
[2022-05-28] MEDS: oxyCODONE 5 MG TAB PO ×3 (02:24→16:07)
[2022-05-28] MEDS: Levothyroxine 100 MCG TAB PO (05:32)
[2022-05-28 06:09] LABS: HCT 31.5 % (36.0-46.0); HGB 10.4 g/dL (11.2-15.7); MCH 32.5 pg (27.0-33.0); MCV 98 fL (80-95); MPV 11.7 fL (8.0-11.0); Platelet Count 147 10^3/uL (130-400); RDW 13.1 % (11.7-14.6); RDW-SD 46.7 fL; WBC 7.14 10^3/uL (4.4-10.8)
[2022-05-28 06:33] LABS: Anion Gap 6.7 mmol/L (3-11); BUN 14 mg/dL (7-18); CO2 29.3 mmol/L (21.0-32.0); CREATININE 0.9 mg/dL (0.55-1.02); Calcium 8.7 mg/dL (8.5-10.1); Chloride 104 mmol/L (98-107); Estimated GFR 63.43 (mL/min/1.73m2); Glucose 186 mg/dL (74-106); Potassium 3.8 mmol/L (3.5-5.1); Sodium 140 mmol/L (136-145)
[2022-05-28] MEDS: Mometasone 220 MCG 14 DOSE INHALER 2 PUFF IH ×2 (07:49→19:45)
[2022-05-28] MEDS: Amiodarone 200 MG TAB PO (08:02)
[2022-05-28] MEDS: Acetaminophen 500 MG TAB 1000 MG PO ×3 (08:02→19:45)
[2022-05-28] MEDS: Furosemide 20 MG TAB PO (08:02)
[2022-05-28] MEDS: Insulin Aspart 300 UNITS/3 ML PEN SC ×3 (08:03→17:03)
[2022-05-28] MEDS: Insulin Glargine 300 UNITS/3 ML PEN 10 UNITS SC (08:03)
[2022-05-28] MEDS: Metoprolol 12.5 MG TAB PO (08:04)
[2022-05-28] MEDS: Ketorolac 15 MG/ML VIAL IVP ×3 (08:04→20:39)
[2022-05-28] MEDS: Multivitamin TAB 1 TAB PO (08:04)
[2022-05-28] MEDS: Pantoprazole 40 MG TABCR PO (08:04)
[2022-05-28] MEDS: Normal Saline Flush 10 ML SYR IV ×2 (08:05→20:40)
[2022-05-28] MEDS: Polyethylene Glycol 3350 17 GM PACKET PO (08:17)
--- NOTE | 2022-05-28 09:18 | PDOC.CMPRO ---
- If Service Date Differs Date of service: 05/28/22 Time of Service: 09:18 Care Management Progress Note S/O: Elaina is sitting up in her chair when CM met with her. She is awake and easily engages in conversation. She is working with PT and mentions it is mostly just difficult to go from a sit to stand position. Anticipate, Elaina will discharge home with New [facility] PT/OT in the next few days per Ortho. CM will continue to follow. A: 82 year old female admitted to [facility] on 05/26/22 for Left knee DJD P: Anticipate Elaina will discharge home with New [facility] PT/OT when medically ready per Ortho. She will transport via private vehicle with her friend Denice. She will follow up with community providers and discharge plan of care as prescribed.
--- NOTE | 2022-05-28 10:22 | PT.INTREAT ---
PT Notes Visit Reasons: Left Knee DJD Date: 05/28/2022 PRECAUTIONS: Fall, WBAT R, Activity as tolerated SUBJECTIVE: Pt in recliner when approached for therapy this morning, Pt pleasant and agreeable to participating with therapy, pt had concerns about knee being painful 10/10 but is concerned about taking pain meds and that she is concerned about getting hooked with pain meds. Pt eventually agreed to taking oxicodone prior to therapy after a few minutes conversing with nurse and therapist. OBJECTIVE:? PAIN: Patient c/o pain in R knee with all knee flexion, and mobility activities ? BED MOBILITY/TRANSFERS? Sit-supine: Min A with HOB flat ? Sit-stand: CGA? Stand-sit: CGA? GAIT? Assistive Device: FWW? Weight bearing: WBAT R Assist: SBA ? Distance:? 80' ? Deviation: Slow pacing, short step height and length, antalgic gait, Step to/ step-through pattern ? THEREX: Review of HEP for LE strengthening and stabilization: ankle pumps, quad sets, glute sets, heel slides, SLR. ? ASSESSMENT:? Pt transfer going in bed post gait training to place cryo cuff to help with swelling and pain. pt able to move in bed to position herself using verbal and tactile cue for guidance with activity. PLAN: Continue with global strengthening, gait and transfer training for improved mobility and activity tolerance. TREATMENT CODE/TIME: Session 1: 30 minutes; [id number], [id number] (8:40) ?
--- NOTE | 2022-05-28 12:27 | W.PM.PROGNOT ---
Date of Service Date of service: 05/28/22 Time of Service: 12:27 Assessment and Plan Assessment and plan (1) Arthritis of left knee: Status: Acute Assessment and plan: Elaina is an 82-year-old who is postop day #2 status post left knee replacement. Her case is complicated given her notable debilitation and deconditioning prior to the surgery with severe bony deformity of the left knee. She also seems to be complicated by significant bleeding and swelling around the left knee. She does have some improvements when she takes the oxycodone however, she has been reluctant to do so. Therefore, I recommend that she be more aggressive with taking this medication as we will be supervising here in the hospital. I also will change her to IV ketorolac and hold her Eliquis. I am hopeful that the bleeding will temper and the ketorolac will help out with some of her pain in place of the Celebrex. She has completed her antibiotic course. She is on a sliding scale insulin regimen. Likely discharge to home with home health therapy in the next few days. Subjective Subjective Interval history since last seen: Elaina had pain overnight and was reluctant to take pain medications. However, she did take oxycodone this morning and that did help out. She was able to mobilize physical therapy. She does find it painful to get out of the chair. However, once walking she was feeling better. She does feel that it is slightly better than last night. There was some concern about redness and warmth to the knee. However, according to her nurse, this is fluctuated throughout the day. She denies fevers or chills. No chest pain or shortness of breath. She is tolerating a regular diet. She is voiding. Exam Narrative Exam Narrative: Sitting up in the chair. No acute distress. Alert and orient x3 Evaluation the left knee shows various amounts of ecchymosis around the left knee, mostly medial. There is a generalized rubor to the skin mostly adjacent to the incision within the central portion of the knee more lateral than medial. There is some edema throughout the knee and the upper portion of the leg. Mild effusion. Given the concern for hemarthrosis, I did aspirate the left knee after prepping the skin with ChloraPrep. I removed approximate 10 cc of old appearing blood. While she had some pain she was able to demonstrate a straight leg raise with minimal lag. Sensation intact light touch over the deep and superficial peroneal nerve and tibial nerve. Palpable DP pulse. Objective Last Vital Signs Temp 36.8 C 05/28/22 11:28 Pulse 66 05/28/22 11:28 Resp 16 05/28/22 11:28 BP 108/67 05/28/22 11:28 Pulse Ox 94 05/28/22 11:28 Laboratory Results - last 24 hr 05/28/22 05/28/22 06:00 06:00 WBC 7.14 RBC 3.20 L Hgb 10.4 L Hct 31.5 L MCV 98 H MCH 32.5 MCHC 33.0 RDW 13.1 Plt Count 147 MPV 11.7 H Sodium 140 Potassium 3.8 Chloride 104 Carbon Dioxide 29.3 Anion Gap 6.7 BUN 14 Creatinine 0.9 Est GFR (CKD-EPI 2020) 63.43 Glucose 186 H Calcium 8.7 Time Spent with Patient Time Spent with Patient: <25 minutes Time was spent: preparing to see the patient(eg.review tests), obtaining and/or reviewing separately otained hiistory and indepentently interpreting results
[2022-05-28] MEDS: Gabapentin 300 MG CAP PO (19:44)
[2022-05-29 03:57] VITALS: BP 107/57; PULSE 75; RESP 18; TEMP 36.9; O2SAT 93
[2022-05-29] MEDS: Levothyroxine 100 MCG TAB PO (06:17)
[2022-05-29 06:58] VITALS: BP 132/63; PULSE 79; RESP 16; TEMP 36.8; O2SAT 100
[2022-05-29] MEDS: Mometasone 220 MCG 14 DOSE INHALER 2 PUFF IH ×2 (07:41→19:55)
[2022-05-29] MEDS: Normal Saline Flush 10 ML SYR IV ×2 (07:58→14:52)
[2022-05-29] MEDS: Insulin Aspart 300 UNITS/3 ML PEN SC ×3 (07:58→16:44)
[2022-05-29] MEDS: Polyethylene Glycol 3350 17 GM PACKET PO (07:58)
[2022-05-29] MEDS: Metoprolol 12.5 MG TAB PO ×2 (07:59→19:53)
[2022-05-29] MEDS: Multivitamin TAB 1 TAB PO (07:59)
[2022-05-29] MEDS: Ketorolac 15 MG/ML VIAL IVP ×3 (07:59→20:05)
[2022-05-29] MEDS: Insulin Glargine 300 UNITS/3 ML PEN 10 UNITS SC (07:59)
[2022-05-29] MEDS: Pantoprazole 40 MG TABCR PO (07:59)
[2022-05-29] MEDS: Acetaminophen 500 MG TAB 1000 MG PO ×3 (07:59→19:54)
[2022-05-29] MEDS: Docusate Sodium 100 MG CAP PO ×2 (07:59→15:44)
[2022-05-29] MEDS: Furosemide 20 MG TAB PO (07:59)
[2022-05-29] MEDS: Amiodarone 200 MG TAB PO (07:59)
[2022-05-29] MEDS: Apixaban 5 MG TAB PO ×2 (08:12→19:53)
--- NOTE | 2022-05-29 09:37 | PT.INTREAT ---
PT Notes Visit Reasons: Left Knee DJD Date: 05/29/2022 PRECAUTIONS: Fall, WBAT R, Activity as tolerated SUBJECTIVE: Pt in recliner when approached for therapy this morning, Pt agreed to participating with therapy. OBJECTIVE:? PAIN: Patient @2/10 at rest, 8/10 upon standing, 5/10 after gait training, 2/10 sitting back at recliner. ? BED MOBILITY/TRANSFERS? Sit-stand: CGA/SBA ? Stand-sit: CGA/SBA? GAIT? Assistive Device: FWW? Weight bearing: WBAT L Assist: SBA ? Distance:? 100' ? Deviation: Slow pacing, short step height and length, antalgic gait, Step to iniytially, step-through pattern after 20' ? THEREX: Review of HEP for seated LE strengthening and stabilization: ankle pumps, quad sets, glute sets, heel slides, SLR. ? ASSESSMENT: Pt reports that the pain decreases after standing for awhile and has place some weight on her Left knee. pt had no complaints and was able to perform exercises with good technique after review. PLAN: Continue with global strengthening, gait and transfer training for improved mobility and activity tolerance. TREATMENT CODE/TIME: Session 1: 30 minutes; [id number], [id number] (8:00am) ?
[2022-05-29] MEDS: oxyCODONE 5 MG TAB PO (09:55)
[2022-05-29 11:26] VITALS: BP 92/48; PULSE 65; RESP 16; TEMP 37; O2SAT 98
[2022-05-29 15:14] VITALS: BP 96/55; PULSE 64; RESP 16; TEMP 36.8; O2SAT 99
[2022-05-29] MEDS: Mylanta Suspension 30 ML CUP PO (15:44)
--- NOTE | 2022-05-29 16:02 | W.PM.PROGNOT ---
Date of Service Date of service: 05/29/22 Time of Service: 11:00 Assessment and Plan Assessment and plan (1) Arthritis of left knee: Status: Acute Assessment and plan: Elaina is an 82-year-old who is status post left knee replacement. She still continues to have pain as well as hypotension. She also is having continued pain and some difficulty with mobilization. I do feel she is making some progress. I would encourage her to continue work with nursing and with physical therapy. I do not see any signs of complication. Where initial bleeding occurred in the left knee seems to have stopped and thus we will resume Eliquis. I will continue to watch her for hyperglycemia and have blood pressure issues she continues to mobilize. She has yet to have a bowel movement as well and therefore we will start be more aggressive with bowel movement treatment. Subjective Subjective Interval history since last seen: Elaina continues to report pain about the left knee. She has been able to ambulate with nursing with some support. She finds that initiating motion, getting out of the chair of the bed and the first step or 2 is the worst. However, she does feel that things are improving as she walks. She is try to make her self walk farther every time. She has not had a bowel movement. She denies fevers or chills. She does report continued redness around the knee itself. No chest pain or shortness of breath. Exam Narrative Exam Narrative: Sitting up in the chair. Left knee shows a dressing which is clean dry and intact. There is rubor and some ecchymosis seen around the left knee although not significantly different from yesterday's exam. The knee still feels soft without significant effusion under pressure. She is able to demonstrate a straight leg raise although causes her pain. She has intact ankle dorsiflexion and plantarflexion as well as great toe extension and flexion. Sensation intact light touch over the deep and superficial peroneal nerve and tibial nerve. I am able to work her through range of motion from 5 to 85 degrees although deeper flexion causes pain. Time Spent with Patient Time Spent with Patient: <25 minutes Time was spent: preparing to see the patient(eg.review tests), obtaining and/or reviewing separately otained hiistory, ordering medications,tests, procedures and counseling the patient
--- NOTE | 2022-05-29 16:13 | W.PM.PROGNOT ---
Date of Service Date of service: 05/29/22 Time of Service: 11:00 Assessment and Plan Assessment and plan (1) Arthritis of left knee: Status: Acute Assessment and plan: Elaina is an 82-year-old who is status post left knee replacement. She still continues to have pain as well as hypotension. She also is having continued pain and some difficulty with mobilization. I do feel she is making some progress. I would encourage her to continue work with nursing and with physical therapy. I do not see any signs of complication. Where initial bleeding occurred in the left knee seems to have stopped and thus we will resume Eliquis. I will continue to watch her for hyperglycemia and have blood pressure issues she continues to mobilize. She has yet to have a bowel movement as well and therefore we will start be more aggressive with bowel movement treatment. (2) Diabetes mellitus due to underlying condition, uncontrolled, with hyperglycemia: Status: Acute (3) Hypotension due to blood loss: Status: Acute Subjective Subjective Interval history since last seen: Eliana continues to report pain about the left knee. She has been able to ambulate with nursing with some support. She finds that initiating motion, getting out of the chair of the bed and the first step or 2 is the worst. However, she does feel that things are improving as she walks. She is try to make her self walk farther every time. She has not had a bowel movement. She denies fevers or chills. She does report continued redness around the knee itself. No chest pain or shortness of breath. Exam Narrative Exam Narrative: Sitting up in the chair. Left knee shows a dressing which is clean dry and intact. There is rubor and some ecchymosis seen around the left knee although not significantly different from yesterday's exam. The knee still feels soft without significant effusion under pressure. She is able to demonstrate a straight leg raise although causes her pain. She has intact ankle dorsiflexion and plantarflexion as well as great toe extension and flexion. Sensation intact light touch over the deep and superficial peroneal nerve and tibial nerve. I am able to work her through range of motion from 5 to 85 degrees although deeper flexion causes pain. Time Spent with Patient Time Spent with Patient: <25 minutes Time was spent: preparing to see the patient(eg.review tests), obtaining and/or reviewing separately otained hiistory, ordering medications,tests, procedures and counseling the patient
[2022-05-29] MEDS: Bisacodyl 10 MG SUPP PR (18:14)
[2022-05-29 19:24] VITALS: BP 129/76; PULSE 86; RESP 18; TEMP 36.9; O2SAT 96
[2022-05-29] MEDS: Gabapentin 300 MG CAP PO (19:52)
[2022-05-29 23:57] VITALS: BP 112/71; PULSE 70; RESP 16; TEMP 36.5; O2SAT 100
[2022-05-30] VITALS (11 sets, daily range): BP systolic 93–122; BP diastolic 48–68; PULSE 63–88; RESP 16–20; TEMP 36.2–38.6; O2SAT 94–100
[2022-05-30] MEDS: Levothyroxine 100 MCG TAB PO (05:58)
[2022-05-30] MEDS: Normal Saline Flush 10 ML SYR IV ×3 (07:28→20:15)
[2022-05-30] MEDS: Polyethylene Glycol 3350 17 GM PACKET PO (07:28)
[2022-05-30] MEDS: Ketorolac 15 MG/ML VIAL IVP ×3 (07:29→20:15)
[2022-05-30] MEDS: Metoprolol 12.5 MG TAB PO ×2 (07:29→20:14)
[2022-05-30] MEDS: Furosemide 20 MG TAB PO (07:29)
[2022-05-30] MEDS: Pantoprazole 40 MG TABCR PO (07:29)
[2022-05-30] MEDS: Amiodarone 200 MG TAB PO (07:30)
[2022-05-30] MEDS: Apixaban 5 MG TAB PO ×2 (07:30→20:14)
[2022-05-30] MEDS: Acetaminophen 500 MG TAB 1000 MG PO ×3 (07:30→20:14)
[2022-05-30] MEDS: Multivitamin TAB 1 TAB PO (07:30)
[2022-05-30] MEDS: Mometasone 220 MCG 14 DOSE INHALER 2 PUFF IH ×2 (08:50→20:15)
[2022-05-30] MEDS: Insulin Glargine 300 UNITS/3 ML PEN 10 UNITS SC (09:03)
[2022-05-30] MEDS: Insulin Aspart 300 UNITS/3 ML PEN SC ×2 (09:04→16:49)
[2022-05-30] MEDS: oxyCODONE 5 MG TAB PO (09:13)
--- NOTE | 2022-05-30 11:51 | PT.INTREAT ---
PT Notes Visit Reasons: Left Knee DJD Date: 05/30/2022 PRECAUTIONS: Fall, WBAT R, Activity as tolerated SUBJECTIVE: Pt in bed when approached for therapy this morning, Pt agreed to participating with therapy. Pt reported that she had a vomiting fit yesterday afternoon lasting to the night preventing her from having a restful sleep, pt reports that she was not able to perform bed exercises due to this, pt reports feeling much better this morning and is looking forward to walking. OBJECTIVE:? PAIN: Patient @2/10 at rest, 5/10 upon standing, 5/10 after gait training, 2/10 sitting back at recliner. ? BED MOBILITY/TRANSFERS? Supine to EOB: CGA EOB to supine: CGA/setup A ? Sit-stand: CGA/SBA ? Stand-sit: CGA/SBA? GAIT? Assistive Device: FWW? Weight bearing: WBAT L Assist: SBA ? Distance:? 140' ? Deviation: Slow pacing, short step height and length, antalgic gait, Step to iniytially, step-through pattern after 20' ? THEREX: Review of HEP for supine and seated LE strengthening and stabilization: ankle pumps, quad sets, glute sets, heel slides, SLR. ? ASSESSMENT: Pt tolerated activity well with pt able to improve on distance and durartion during gait training. pt reports that the pain stayed at her starting level despite doing the walking. PLAN: Continue with global strengthening, gait and transfer training for improved mobility and activity tolerance. TREATMENT CODE/TIME: Session 1: 30 minutes; [id number], [id number] (9:10-9:40am)
[2022-05-30 14:08] LABS: Bilirubin Negative (Negative); Blood Negative (Negative); Clarity Clear (Clear); Glucose Negative (Negative); Ketones Negative (Negative); Leukocyte Esterase Negative (Negative); Nitrite Negative (Negative); Urobilinogen 0.2 EU/dL (Up TO 0.2)
--- NOTE | 2022-05-30 17:59 | W.PM.PROGNOT ---
Date of Service Date of service: 05/30/22 Time of Service: 10:30 Assessment and Plan Assessment and plan (1) Hypotension due to blood loss: Status: Acute (2) Diabetes mellitus due to underlying condition, uncontrolled, with hyperglycemia: Status: Acute (3) Arthritis of left knee: Status: Acute Assessment and plan: POD#4 s/p L TKA. Elaina seems to be making some improvements. Her pain is not peaking as much and she is still reluctant to utilize any pain medications. She continues to have some hyperglycemia so I will change the scale to moderate and consider an incrase in her baseline lantus. Continue to mobilize with PT. Check UA with history of one episode of fever. Start IS. Likely home d/c with HH services tomrorow. Subjective Subjective Interval history since last seen: Elaina had some nausea last night which has improved. She had a large BM yesterday. She continues to have some hypotension and hyperglycemia. Pain has been controlled. She has been mobilizing to the bathroom with nursing. No other acute issues except for a momentary episode of some confusion and panic this morning. Exam Narrative Exam Narrative: Sitting up in the chair. NAD. AAOx3. LLE leg with some rubor and ecchymosis. No significant change. Dressing c/d/i. +SLR. +ADF/APF/EHL/FHL SILT DP/SP/Tib Objective Last Vital Signs Temp 36.8 C 05/30/22 15:23 Pulse 75 05/30/22 15:23 Resp 18 05/30/22 15:23 BP 113/59 L 05/30/22 15:23 Pulse Ox 95 05/30/22 15:23 Laboratory Results - last 24 hr 05/30/22 13:50 Urine Color Yellow Urine Clarity Clear Urine pH 6.0 Ur Specific [place] 1.010 Urine Protein Negative Urine Ketones Negative Urine Blood Negative Urine Nitrite Negative Urine Bilirubin Negative Urine Urobilinogen 0.2 Ur Leukocyte Esterase Negative Urine Glucose Negative Time Spent with Patient Time Spent with Patient: <25 minutes Time was spent: preparing to see the patient(eg.review tests), obtaining and/or reviewing separately otained hiistory and ordering medications,tests, procedures
[2022-05-30] MEDS: Gabapentin 300 MG CAP PO (22:05)
[2022-05-31 03:17] VITALS: BP 101/65; PULSE 64; RESP 18; TEMP 36.3; O2SAT 98
[2022-05-31] MEDS: Levothyroxine 100 MCG TAB PO (05:55)
[2022-05-31 07:22] VITALS: BP 134/65; PULSE 78; RESP 16; TEMP 37.1; O2SAT 97
[2022-05-31] MEDS: Normal Saline Flush 10 ML SYR IV (07:47)
[2022-05-31] MEDS: Acetaminophen 500 MG TAB 1000 MG PO (07:48)
[2022-05-31] MEDS: Insulin Aspart 300 UNITS/3 ML PEN SC ×2 (07:48→12:18)
[2022-05-31] MEDS: Metoprolol 12.5 MG TAB PO (07:48)
[2022-05-31] MEDS: Ketorolac 15 MG/ML VIAL IVP (07:48)
[2022-05-31] MEDS: Pantoprazole 40 MG TABCR PO (07:49)
[2022-05-31] MEDS: Furosemide 20 MG TAB PO (07:49)
[2022-05-31] MEDS: Multivitamin TAB 1 TAB PO (07:49)
[2022-05-31] MEDS: Apixaban 5 MG TAB PO (07:49)
[2022-05-31] MEDS: Amiodarone 200 MG TAB PO (07:49)
[2022-05-31] MEDS: Mometasone 220 MCG 14 DOSE INHALER 2 PUFF IH (07:53)
[2022-05-31] MEDS: Polyethylene Glycol 3350 17 GM PACKET PO (07:54)
[2022-05-31] MEDS: Insulin Glargine 300 UNITS/3 ML PEN 10 UNITS SC (08:07)
--- NOTE | 2022-05-31 11:06 | PDOC.CMDIS ---
- If Service Date Differs Date of service: 05/31/22 Time of Service: 11:06 LACE Index Scoring Tool - Questions: Length of Stay (in days): 4 - 6 Acuity (Admit via E.D.?): No Comorbidities: Diabetes w/o Complication, Metastatic Solid Tumor (HX endometrial cancer, ) E.D. Visits: 3 - Answers: Total Score: 12 Risk of Readmission: High Risk Care Management Discharge Reason for Hospitalization: Left knee DJD Discharge Plan: Elaina is discharged home with new [facility] RN, PT/OT, [employer]OT[employer] ENGINEERING TECHNICIAN services. She is transported via private vehicle with her friend. Elaina will follow up with community providers and discharge plan of care as prescribed. New RX's are transferred to [facility]. Elaina is planning to follow up with ortho on 06/07/22, as scheduled. Patient/Family Education Needs: Review discharge instructions, limitations and plan to follow up with community providers. Discuss ask me three. Services Needed at Discharge: Home Health Care Services ([facility] RN/PT/OT/AUTOMOTIVE ENGINEERING TECHNICIAN, CM notified agency)
[2022-05-31 11:12] VITALS: BP 100/66; PULSE 68; RESP 14; TEMP 36.8; O2SAT 94
--- NOTE | 2022-05-31 12:56 | DSE_ITS ---
Date of service: 05/31/22 Time of Service: 12:56 DS: Diagnosis Discharge Diagnosis (1) Arthropathy of left knee: Discharge Plan Disposition Patient Disposition: Home Condition: Good Discharge Details Reason For Visit: Left Knee DJD Admit Date/Time: 05/26/22 07:05 Admit Provider: Castillo Del Cid Attending Provider: Castillo Del Cid Primary Care Provider: Vicenta Freed Hospital Course Hospital Course: Patient was admitted to the medical/surgical floor following the procedure. The surgery was tolerated well without any notable medical, surgical, or anesthetic complications. Mobilization began postoperatively. She was voiding spontaneously. She had a bowel movement. She did have difficulties with hypoglycemia and hypotension following the procedure. This was also complicated with some periods of weakness and pain which did respond eventually to typical treatment algorithms. Vitals were stable. [facility] for discharge home with home health services. No acute medical issues. Pain was controlled on oral regimen. Home Meds and New Rx's Prescriptions: New acetaminophen 500 mg tablet 1,000 mg PO Q8H PRN Qty: 90 0RF Rx Instructions: Take two tablets up to every 8 hours as needed for pain celecoxib [Celebrex] 200 mg capsule 200 mg PO BID PRNQty: 60 0RF Rx Instructions: Take one tablet twice daily for pain and inflammation docusate sodium [Colace] 100 mg capsule 100 mg PO BID Qty: 30 0RF Continued (DME) compress.stocking,knee,reg,lrg Misc See Rx Instructions .ROUTE .MEDSUPPLY Qty: 1 0RF Rx Instructions: As directed, 20mmHg-30mmHg (pt unable to tolerate higher pressure) Mylanta Coat-Cool 1,200 mg-270 mg -80 mg/10 mL suspension 10 ml PO PRN PRN (DME) lancing device with lancets [OneTouch Delica Plus Lanc Dev] Kit See Rx Instructions .ROUTE .MEDSUPPLY Qty: 1 0RF Rx Instructions: Monitor BS 2-3x/wk; E11.9, to achieve A1C under 7%, T 2 DM (DME) blood-glucose meter [OneTouch Verio Meter] Misc See Rx Instructions .ROUTE .MEDSUPPLY Qty: 1 0RF Rx Instructions: Monitor BS 2-3x/wk; E11.9, to achieve A1C under 7%, T 2 DM (DME) OneTouch Verio test strips Strip See Rx Instructions .ROUTE .MEDSUPPLY Qty: 100 3RF Rx Instructions: Monitor BS 2-3x/wk; E11.9, to achieve A1C under 7%, T 2 DM fluticasone propionate [Flovent HFA] 110 mcg/actuation HFA aerosol inhaler 2 puff Inhalation BID Qty: 3 3RF Rx Instructions: Rinse mouth after use gabapentin 100 mg capsule 100 mg PO TID PRN (Reason: burning leg pain) Qty: 90 1RF Rx Instructions: Radicular right leg pain, qHS & AM trial (DME) lancets [BD Microtainer Lancet] 30 gauge misc See Rx Instructions .Route Qty: 100 3RF Rx Instructions: monitor blood sugars once daily, T 2 DM E11.9, to achieve A1C goal under 7.5% Eliquis 5 mg tablet 5 mg PO BID Qty: 180 6RF albuterol sulfate [ProAir HFA] 90 mcg/actuation HFA aerosol inhaler 2 puff Inhalation Q4H PRN PRN (Reason: shortness of breath or wheezing) Qty: 3 1RF metoprolol tartrate 25 mg tablet 12.5 mg PO BID Qty: 90 3RF Rx Instructions: 0.5 tab bid furosemide 20 mg tablet 20 mg PO DAILY Qty: 90 3RF pantoprazole 40 mg tablet,delayed release (DR/EC) 40 mg PO DAILY Rx Instructions: 09/30/21- increase to BID . Bhavani Coyne APRN [facility] gastro 10/29/21 decrease to daily YOKO Rios levothyroxine 100 mcg tablet 100 mcg PO DAILY Qty: 90 1RF insulin glargine 100 unit/mL (3 mL) insulin pen 10 unit subcut DAILY Qty: 15 1RF Rx Instructions: Start @ 10units and increase per CDE/PCP direction (DME) pen needle, diabetic [BD Ultra-Fine Mini Pen Needle] 31 gauge x 3/16 needle See Rx Instructions .ROUTE .MEDSUPPLY Qty: 100 2RF Rx Instructions: For DM, E11.9, FOR ONCE DAILY INJECTION, WITH GOAL A1C < 8 amiodarone 200 mg tablet 200 mg PO DAILY Qty: 90 3RF Rx Instructions: Cont Kiesling (Cardio) Rx multivitamin 1 EACH capsule 1 ea PO DAILY Changed tramadol 50 mg tablet 50 mg PO Q4H PRN PRN (Reason: pain) Qty: 15 0RF Discontinued acetaminophen 500 mg tablet 1,000 mg PO TID PRN PRN (Reason: knee and leg pain) Qty: 120 1RF Discharge Instructions Additional Instructions: Total Knee Discharge Instructions Activity: The most important activity is to walk and to work on gentle motion (both flexion and extension). You should try to take short walks a few times a day. It is important that when resting you work on keeping the knee straight. Avoid putting a pillow behind the knee as this will encourage flexion. Work on range of motion exercises as provided by Physical Therapy. - You will have Home Health PT to help with exercises and walking until you can start outpatient physical therapy around 2 weeks. - You should wear the APRIL hose on both legs for 2 weeks. You may remove these at night. You may also use any compression sock in place of the APRIL hose. - Utilize [employer] to review exercises, see videos on exercises and obtain basic information pertaining to your surgery and your recovery. Dressing: Remove the Ruben wrap by 2 days after your surgery and put on the APRIL st ocking given to you from the hospital. Keep the surgical dressing (underneath the RUBEN wrap) in place for at least one week. After the first week it may be removed and replaced with light gauze and tape or nothing. The wound and dressing may get wet after 3 days but avoid soaking the dressing or otherwise it will need to be changed. Many people prefer covering the dressing with cling wrap (saran wrap) to minimize it from getting soaked. If it gets wet, just pat dry. If it starts to peel off then it will need to be changed. Medications: - You should take Tylenol and anti-inflammatory Celebrex as your primary pain control medications. If the Celebrex is too expensive or not covered, please call the office for another alternative (Advil/Ibuprofen or Naproxen/Aleve) - You have been prescribed a stronger pain medication Tramadol for breakthrough pain, take as needed as prescribed. - You normally take a stomach acid reduction agent Pantoprozole to help reduce stomach acid and reflux - continue with this medication. - You take Gabapentin at baseline - continued with this medication to help with restlessness and nerve pain. - You will resume your Apixaban for DVT prevention. - If you have constipation you should take Colace (which has been prescribed) or Miralax (which is available [id number]). It takes most people 3-4 days to have a bowel movement. Follow-up: 2 weeks If you have any acute concerns or questions, please do not hesitate to contact the office at [phone]. You may contact Dr. Del Cid with any questions after hours through the hospital at [phone] or on his cell phone at [phone]. 1. Encounter Date and Reason I certify that Elaina Huddleston was seen by Castillo Del Cid MD on 05/31/22 and that I had a [id number] encounter with this patient that meets the physician face to face encounter requirements. 2. Clinical Findings Supporting Skilled Need and Homebound Status I certify that home health services are medically necessary, include either intermittent care home and/or physical/speech therapy, and that this patient is homebound in that absences from the home require considerable and taxing effort and are infrequent or of short duration, or are attributable to the need to receive medical care. [X] (a) Attached documentation from encounter provides clinical findings supporting skilled need and homebound status (including what assistance patient requires to leave the home). The encounter with the patient was in whole, or in part, for the following medical condition, which is the primary reason for home health care: Left Knee DJD Senior Living: Elaina will benefit from home health services including nursing to assist with management of postoperative medications, pain, and complications. Physical Therapy: Elaina will benefit from home health PT/OT services to assist with return to independent daily living, ambulation, and function. She has weakness and limitations following left knee replacement. She has no formal restrictions. Speech Therapy: Homebound: Elaina is homebound. She is unable to leave her home unassisted. 3. Certification and Authentication I certify that I composed the above information based on my clinical judgement relating to this patient's medical condition and, if applicable, clinical findings communicated to me by the NPP or inpatient physician who performed the Home Health Referral. All further orders will be obtained through Dr. Castillo De lCid Stand Alone Forms: Nursing Discharge Form Referrals: Castillo Del Cid MD [ [facility] STAFF PHYSICIAN] - 06/07/22 10:30 am Activity:: Activity as Tolerated Equipment/Supplies:: Walker Diet:: As Tolerated Discharge Orders Discharge Orders: Discharge Order (Routine); Ordered 05/31/22 Ordered By: Castillo Del Cid DS: Summary Time Spent with Patient providing and/or coordinating discharge services: Less than 30 minutes Status at Discharge Functional status at discharge: uses cane/walker Overall status at discharge: patient is progressing back to baseline Mental Status: mental status grossly normal Speech and Movement: speech and movement normal Mood: congruent mood Affect: normal affect Exam Narrative Exam Narrative: NAD. AAOx3. Sitting up in the chair. Dressing c/d/i. +SLR. Tolerates ROM from 10-90. +ADF/APF/EHL/FHL. SILT DP/SP/Tib. Psych Mental Status: mental status grossly normal Speech and Movement: speech and movement normal Mood: congruent mood Affect: normal affect DS: Data Vitals/I&O Vitals and I&O: Vital Signs Temp Pulse Resp BP Pulse Ox 05/31/22 07:22 37.1 C 78 16 134/65 97 05/31/22 03:17 36.3 C L 64 18 101/65 98 05/30/22 23:46 36.2 C L 63 16 105/59 L 97 PFSH All Active Problems Hypotension due to blood loss (Acute) Diabetes mellitus due to underlying condition, uncontrolled, with hyperglycemia (Acute) A1C rise due to inactivity 2' back/knee pain & steroid use.. winter 2021 Insulin dose changed (Acute) Elevated serum free T4 level (Acute) high TSH, High T4, 03/2022 ... Hx low TSH and high T4 (08/2021) Elevated TSH (Acute) Arthritis of left knee (Acute) s/p L TKA 05/26/22 Lymphedema (Acute) nonpitting edema -- seems lymphedema -- appreciate pt eval Pyrosis (Acute) Sensorineural hearing loss (Acute) Left knee pain (Acute) DEPO MEDROL 01/14/22 Arthrocentesis @ [facility] (during hosp stay for atrial tach), NEG.. referred to local ortho ([facility]). Atrial tachycardia (Acute) per Cardiology, [facility] .. Admitted post xfer from [facility] ED (08/08/21). EF 50%. Amiodarone started; Flecainide stopped. Atrioventricular pacing seen on electrocardiogram (Acute) Atrial fibrillation (Acute 07/06/11) normal echo and cath 2008; flecanide Rx; apixiban; echo 09/2013 EF 60%.. Atrioventricular block (Acute 07/07/12) pacemaker placement 12/04/2013; 5 sec asystoles last interrogation, 03/2017. Pacemaker (Acute 09/16/17) Sees DARNELL Tejada ([facility]). Dual lead Medtronic pacemaker Adapta .. Placed 2013, Dr. Edin Robles. 99Medtronic dual lead pacemaker implanted 12/04/2013 .. Adapta ADDRO1 [id number] .. RA Medtronic [id number], 11/2013.. RV [id number] 12/04/2013)) Tachycardia (Acute) Type 2 diabetes mellitus (Acute) A1C jump 2' limited ambulation & steroid use. [ ] Insulin due to intolerance of PO Rx, ik, 03/2022.. Recent A1C increase, from pre-diabetes to DM this past year.. Edema (Acute) LE edema , R>L .. notable, possibly 2' Jardiance intolerance, but possible lymphedema (?) Medication intolerance (Acute) Unable to tolerate Jardiance (candidiasis!), Metformin. Vulvovaginal candidiasis (Acute) 2' Jardiance .. trial monostat or diflucan . STOP Jardiance if janae returns. Dysphagia, unspecified (Acute 07/07/12) EGD KD: mild esophagitis 10/[address] Ragsdale 09/23/[address] Duncan, [facility], [place], [place]. Impression: Gerd Dysphagia. Rule out secondary to esophageal ulcer,dysmotility, or from perhaps a failing Singh. recommeded: Upper GI Gerd protocaol discussed w/ pt. panel 2,B12 If pt continues sx, may want to repeat upper endoscopy. Plans to see her back in follwup. Gastroesophageal reflux disease (Acute 07/07/12) Managed with PPI for years, worsening x 2-3 months. Now associated with LUQ tenderness, 05/26/17. []H.pylori [] U/S LUQ ik IMPROVED with weight loss, 06/02.19, ik EGD rescheduled with Dr. Escobar (2' Dorena not yet taking appts @ [facility]), 05/26/17 .. Consulted, EGD sched for 06/29/17. note: s/p Singh, hernia repair, and esoph dilation (2013) 10/29/21 GI visit with f/u in 6w Atrophic gastritis without mention of hemorrhage (Acute 07/07/12) History of hiatal hernia (Acute) Esophagitis determined by biopsy (Acute) Reactive airway disease (Chronic) Medical History Arthropathy of left knee Asthma (01/18/13) possible asthma; PFTs normal 04/27/2012.07/2013 Cardiomyopathy Due to atrial tachycardia.. xferred to [facility], PM reprogrammed. Amiodarone replacing flecainide. Low-dose diuretics (see 08/11/21 [facility] Cardio note).. 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 A1C goal 7.5 ... 7.1 today, 08/07/20. 6.8/6.9 in 11/2016. A1C 6.5 post weight loss and focused effort on reducing carbs/sweets. 06/02/18, ik A1C remains @ 6.5 08/2018, good job! 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 [facility] q6m x1 year, then annually. --[facility] 06/2016 Shakira Diaz MD Post-radiation association with new abd pain (?), ik, 05/26/17 Essential hypertension (01/18/13) FRS 13% .. Well controlled, 116/70 06/02/18, ik Exertional dyspnea (01/28/15) Failed fundoplication Family hx-breast malignancy (11/13/12) SISTER IN 60s High risk medications (not anticoagulants) long-term use Flecainide - started by Dr. Douglass High risk medications (not anticoagulants) long-term use Amiodarone started, 07/2021 (after years on flecainide).. [ ] Ophtho, EP, Echo, PFTs .. short-term lasix. History of postmenopausal bleeding Hot flashes Hot Flashes x 6 mos, 06/13/19. Hyperlipidemia (07/07/12) Hypomagnesemia Noted @ ED, 02/2021 .. replenished. Monitor [ ] Hypothyroidism (01/02/13) TSH 2.43 (05/2017) vs. >9 (02/2017). Cont @ same 88mcg. Impaired glucose tolerance (03/10/12) Leg edema Leg weakness With standing .. Hx lumbar stenosis .. Hx spinal injection (?) Lesion of face or BCCA left lateral canthus 09/14/[address] Dillon 09/22/21 sutures removed Macular pucker Multinodular goiter (12/19/15) Muscle spasm of left shoulder area Trapezius MM Spasm .. Neurogenic pain of right lower extremity (09/19/15) Osteoarth NOS-unspec (07/06/11) Pelvic pain (02/07/13) Piriformis syndrome of right side Postnasal drip (01/09/15) Primary osteoarthritis of right knee (01/10/17) s/p RT TKR Fall 2017 Right lumbar radiculopathy Sensorineural hearing loss of both ears Sensorineural hearing loss, bilateral (12/28/13) Spinal stenosis of lumbar region Symptomatic bradycardia Thyroid nodule (01/28/15) 01/01/15 US 4mm nodule isthmus 05/15/15 US 4.5 nodule isthmus, ?7x5 nodule right Trochanteric bursitis, right hip (05/19/16) Urge incontinence Surgical History Cardiac Cath, 2008 Cholecystectomy Colonoscopy - IV Sedation (03/17/16) EGD - MAC (06/29/17) Extraction of cataract B/L Hernia, hiatal (banding) History of Surgical Procedure a. Cholecystectomy. b. Bilateral cataract surgery. c. Hiatal hernia repair 2008. d. Esophagus stretching 2013 - Dr. Ragsdale. e. Pacemaker 12/04/2013 Hyseterectomy, Total Laparoscopic w/ BSO (07/01/16) +Endometrial cancer Pacemaker (12/04/13) Replacement of total knee joint (12/03/16) R knee Dr Del Cid sentinal lymph node dissection (07/01/16) NEG for mets from endometrium Status post right knee replacement Dr. Del Cid, Ortho. She is happy with knee, able to step down from sidewalk w/o fear per 03/02/18 appt discussion. COntinues to do well; seeing ortho for possible neuropathic pain (outer rt calf). upper GI Series (10/05/17) for sx of epigastric dysphagia,GERD. Done by Dr. Duncan. Impression: Moderate sized Hiatal Hernia. Marked gastroesophageal reflux. Family History Mother , old age at age 98. No problems noted. Father , Heart disease at age 64. Heart disease [place] Sister , Colon [place] Personal history of malignant neoplasm Sister , Heart problems at age 72. Personal history of malignant neoplasm Breast cancer, dx'ed in her 60s Heart disease Sister Hypertensive disorder, systemic arterial Diabetes Sister Diabetes Sister Hypertensive disorder, systemic arterial Brother , Parkinson's at age 75. Personal history of malignant neoplasm Brother Parkinson's disease Brother , Heart condition at age 62. Hypertensive disorder, systemic arterial Diabetes Brother Hypertensive disorder, systemic arterial Diabetes Social History Smoking/Tobacco Use Status: Never Smoking risk assessment performed?: Yes Alcohol Intake: never Drug use: Never Substance use type: does not use Adopted: No Foster care: No Housing: apartment Number of Children: 0 number of grandchildren: 0 Communication Needs: Corrective Lenses current occupation: retired from [employer] Pets and animals: No Current gender identity: female What is your relationship status?: Panel score (0-1 are the most socially isolated patients): 0 Seatbelt use: always Working smoke detector in home: Yes Fire extinguisher in home: Yes Carbon monox detector in home: Yes Firearms in home: No Do you feel safe at home: Yes Do you feel safe in your relationship?: Yes Time Spent with Patient Time Spent with Patient: <45 minutes Time was spent: preparing to see the patient(eg.review tests), obtaining and/or reviewing separately otained hiistory and ordering medications,tests, procedures
--- NOTE | 2022-05-31 14:20 | PT.INTREAT ---
Date of service: 05/31/22 Time of Service: 09:02 PT Notes Visit Reasons: Left Knee DJD Inpatient Physical Therapy Treatment Note [facility] Date: 05/31/2022 PRECAUTIONS: Fall, WBAT L, Activity as tolerated SUBJECTIVE: Elaina is pleasant and agreeable to participating in PT. She reports feeling much better today, and feeling more confident and ready to return home. OBJECTIVE: PAIN: Minimal L knee discomfort reported with ther ex and initiating ambulation BED MOBILITY/TRANSFERS Sit-supine: S with HOB flat Sit-supine: S with HOB flat Sit-stand: SBA Stand-sit: SBA GAIT Assistive Device: FWW Weight bearing: WBAT L Assist: SBA Distance: 60' Deviation: Slow pacing, short step height and length, antalgic gait, step-to to step-through pattern THEREX: Patient was instructed in a LE strengthening and stabilization, to include: ankle pumps, quad sets, glute sets, heel slides, hip abduction and SLR. ASSESSMENT: Patient tolerated session with minimal c/o L knee discomfort with therex and gait training initiation. She demonstrates improved ability to complete transfers and bed mobility without assist. PLAN: Patient to discharge to home later today, per provider. Recommend follow up with PT upon discharge. TREATMENT CODE/TIME: 24 minutes; [id number], [id number] (09:02)
--- NOTE | 2022-05-31 18:00 | PT.INDS ---
PT Notes Visit Reasons: Left Knee DJD Physical Therapy Inpatient Discharge Summary Date: 06/01/2022 Dates of service: 05/26/2022 through 05/31/2022 This is a clinical summary of care provided for the duration of dates listed above. No charge was made in the completion of this documentation. Referring Doctor:? DARNELL Sorto PT Orders: PT CONSULT: S/P Ortho Surgery Precautions: Fall. Standard.?WBAT on the L LE with AD. Patient Profile/Admitting Diagnosis:? Patient with arthropahty of L knee S/P R total knee arthroplasty on postoperative day 0. PMHX: All Active Problems?(Updated 05/26/22 @ 09:16 by Castillo Del Cid MD) Arthropathy of left knee (Acute) Diabetes mellitus due to underlying condition, uncontrolled, with hyperglycemia (Acute) A1C rise due to inactivity 2' back/knee pain & steroid use.. winter 2021 Insulin dose changed (Acute) Elevated serum free T4 level (Acute) high TSH, High T4, 03/2022 ... Hx low TSH and high T4 (08/2021)Elevated TSH (Acute) Arthritis of left knee (Acute) Lymphedema (Acute) nonpitting edema -- seems lymphedema -- appreciate pt eval Knee pain, left anterior (Acute) Pyrosis (Acute) Sensorineural hearing loss (Acute) Left knee pain (Acute) DEPO MEDROL 01/14/22 Arthrocentesis @ [facility] (during hosp stay for atrial tach), NEG.. referred to local ortho ([facility]). Atrial tachycardia (Acute) per Cardiology, [facility] .. Admitted post xfer from [facility] ED (08/08/21). EF 50%. Amiodarone started; Flecainide stopped.Atrioventricular pacing seen on? electrocardiogram (Acute) Atrial fibrillation (Acute 07/06/11) normal echo and cath 2008; flecanide Rx; apixiban; echo 09/2013 EF 60%.. Atrioventricular block (Acute 07/07/12) pacemaker placement 12/04/2013; 5 sec asystoles last interrogation, 03/2017. Pacemaker (Acute 09/16/17) Sees DARNELL Tejada ([facility]). Dual lead Medtronic pacemaker? Adapta .. Placed 2013, Dr. Edin Robles.? 99 Medtronic dual lead pacemaker implanted ? ? ? 2014 .. Adapta ADDRO1? [id number] .. RA? Medtronic [id number], 11/2013.. RV [id number]? 12/04/2013)) Tachycardia (Acute) Type 2 diabetes mellitus (Acute) A1C jump 2' limited ambulation & steroid use. [ ] Insulin due to intolerance of PO Rx, ik, 03/2022.. Recent A1C increase, from pre-diabetes to DM this past? year.. Edema (Acute) LE edema , R>L .. notable, possibly 2' Jardiance intolerance, but possible lymphedema (?)Medication intolerance (Acute) Unable to tolerate Jardiance (candidiasis!), Metformin. Vulvovaginal candidiasis (Acute) 2' Jardiance .. trial monostat or diflucan . STOP Jardiance if janae returns. Dysphagia, unspecified (Acute 07/07/12) EGD KD: mild esophagitis 10/[address] Ragsdale 09/23/[address] Duncan, [facility], [place], [place]. Impression: Gerd Dysphagia. Rule out secondary to esophageal ulcer,dysmotility, or from perhaps a failing Singh. recommeded: Upper GI Gerd protocaol discussed w/ pt. panel 2,B12 If pt continues sx, may want to repeat upper endoscopy. Plans to see her back in follwup. Gastroesophageal reflux disease (Acute 07/07/12) Managed with PPI for years, worsening x 2-3 months. Now associated with LUQ tenderness, 05/26/17. []H.pylori [] U/S LUQ ik IMPROVED with weight loss, 06/02.19, ik EGD rescheduled with Dr. Escobar (2' [facility] not yet taking appts @ [facility]), 05/26/17 .. Consulted, EGD sched for 06/29/17. note: s/p Singh, hernia repair, and esoph dilation (2013) 10/29/21 GI visit with f/u in 6w Atrophic gastritis without mention of hemorrhage (Acute 07/07/12) History of hiatal hernia (Acute) Esophagitis determined by biopsy (Acute) Reactive airway disease (Chronic) Medical History? Asthma (01/18/13) possible asthma; PFTs normal 04/27/2012.07/2013 Cardiomyopathy Due to atrial tachycardia.. xferred to [facility], PM reprogrammed. Amiodarone replacing flecainide. Low-dose diuretics (see 08/11/21 [facility] Cardio note).. 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 A1C goal 7.5 ... 7.1 today, 08/07/20. 6.8/6.9 in 11/2016. A1C 6.5 post weight loss and focused effort on reducing carbs/sweets.? ? ? 06/02/18, ik A1C remains @ 6.5 08/2018, good job! 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 [facility] q6m x1 year, then annually. --[facility] 06/2016 Shakira Diaz MD Post-radiation association with new abd pain (?), ik, 05/26/17 Essential hypertension (01/18/13) FRS 13% .. Well controlled, 116/70 06/02/18, ik Exertional dyspnea (01/28/15) Failed fundoplication Family hx-breast malignancy (11/13/12) SISTER IN 60s High risk medications (not anticoagulants) long-term use Flecainide - started by Dr. DouglassHigh risk medications (not anticoagulants) long-term use Amiodarone started, 07/2021 (after years on flecainide).. [ ] Ophtho, EP, Echo, PFTs .. short-term lasix.History of postmenopausal bleeding Hot flashes Hot Flashes x 6 mos, 06/13/19.Hyperlipidemia (07/07/12) Hypomagnesemia Noted @ ED, 02/2021 .. replenished. Monitor [ ] Hypothyroidism (01/02/13) TSH 2.43 (05/2017) vs. >9 (02/2017). Cont @ same 88mcg. Impaired glucose tolerance (03/10/12) Leg edema Leg weakness With standing .. Hx lumbar stenosis .. Hx spinal injection (?) Lesion of face or BCCA left lateral canthus 09/14/[address] Dillon 09/22/21 sutures removedMacular pucker Multinodular goiter (12/19/15) Muscle spasm of left shoulder area Trapezius MM Spasm .. Neurogenic pain of right lower extremity (09/19/15) Osteoarth NOS-unspec (07/06/11) Pelvic pain (02/07/13) Piriformis syndrome of right side Postnasal drip (01/09/15) Primary osteoarthritis of right knee (01/10/17) s/p RT TKR Fall 2018Right lumbar radiculopathy Sensorineural hearing loss of both ears Sensorineural hearing loss, bilateral (12/28/13) Spinal stenosis of lumbar region Symptomatic bradycardia Thyroid nodule (01/28/15) 01/01/15 US 4mm nodule isthmus 05/15/15 US 4.5 nodule isthmus, ?7x5 nodule right Trochanteric bursitis, right hip (05/19/16) Urge incontinence Surgical History? Cardiac Cath, 2008 Cholecystectomy Colonoscopy - IV Sedation (03/17/16) EGD - MAC (06/29/17) Extraction of cataract B/LHernia, hiatal (banding) History of Surgical Procedure a. Cholecystectomy. b. Bilateral cataract surgery. c. Hiatal hernia repair 2008. d. Esophagus stretching 2013 - Dr. Ragsdale. e. Pacemaker 12/04/2013Hyseterectomy, Total Laparoscopic w/ BSO (07/01/16) +Endometrial cancer Pacemaker (12/04/13) Replacement of total knee joint (12/03/16) R knee Dr Del Cid sentinal lymph node dissection (07/01/16) NEG for mets from endometrium Status post right knee replacement Dr. Del Cid, Ortho. She is happy with knee, able to step down from sidewalk w/o fear per 03/02/18 appt discussion. COntinues to do well; seeing ortho for? possible neuropathic pain (outer rt calf). upper GI Series (06/13/18) for sx of epigastric dysphagia,GERD. Done by Dr. Duncan. Impression: Moderate sized Hiatal Hernia. Marked gastroesophageal reflux. Social History/Home Situation: Lives in an independent prison facility in [place], [place] with a ramp to the building entrance.? Has a friend who has been providing transportation needs lately as she had been having issues with her L knee.? Independent with all indoor and outdoor ambulation using SPC.? Occasionally uses a FWW.? Prepares own meals and does her own groceries.? Manages home chores on her own. Equipment Owned/DME: FWW, SPC Subjective: NT. See most recent GEODETIC TECHNICIAN notes. Objective: General Observation: NT. See most recent GEODETIC TECHNICIAN notes. Mental Status: NT. See most recent GEODETIC TECHNICIAN notes. Pain: NT. See most recent GEODETIC TECHNICIAN notes. Vital Signs: NT. See most recent GEODETIC TECHNICIAN notes. ROM: Right Lower Extremity: Hip flexion WFL. Hip abduction WFL. Knee flexion WFL. Ankle dorsiflexion WFL. Ankle plantarflexion WFL. Left Lower Extremity: Hip flexion WFL. Hip abduction WFL. Knee flexion 45 degrees to 90 degrees.? Knee extension -45 degrees.? Ankle dorsiflexion WFL. Ankle plantarflexion WFL. Strength: Right Lower Extremity: Hip flexors 4/5. Hip abductors 4/5. Knee flexors 4/5. Knee extensors 4/5. Ankle dorsiflexors 4/5. Ankle plantarflexors 4/5. Left Lower Extremity: Hip flexors 4-/5. Hip abductors 4-/5. Knee flexors 3-/5. Knee extensors 3-/5. Ankle dorsiflexors 4-/5. Ankle plantarflexors 4-/5. BED MOBILITY/TRANSFERS? Sit-supine: S with HOB flat ? Sit-supine: S with HOB flat Sit-stand: SBA? Stand-sit: SBA? GAIT? Assistive Device: FWW? Weight bearing: WBAT L Assist: SBA ? Distance:? 60'? Deviation: Slow pacing, short step height and length, antalgic gait, step-to to step-through pattern Balance: Static Sitting: Normal Dynamic Sitting: Normal Static Standing: Fair Dynamic Standing: Fair Special Tests: Mobility Limitations Standardized Measure [facility]-PAC 6 clicks Basic Mobility Inpatient Short Form: Raw Score: 23? CMS Score: 11% deficit? ? ? Assessment: Patient with arthropahty of L knee S/P R total klnee arthroplasty on postoperative day 0.? Will benefit from pre-medication for pain to maximize transfers and ambulation performance.? Patient presents with clinical signs and symptoms consistent with current/admitting diagnoses that have resulted to mobility limitations, gait instability, generalized weakness, and overall ADL decline as demonstrated by the following impairment level findings: 1.? Decreased strength to L knee major muscle groups 2.? Impaired standing balance 3.? Impaired activity tolerance 4.? Limitation of joint range of motion in L knee Impairments are contributing to the following functional limitations: 1.? Decline in bed mobility skills 2.? Decline in transfer skills 3.? Difficulty with ambulation without assistive device and physical assistance 4.? Increased completion time for mobility ADL performance 5.? Increased risk for falls 6.? Difficulty with managing steps alone safely Goals: Goals X1 week 1. Supine-Sit independent NOT MET 2. Sit-Supine independent NOT MET 3. Sit-Stand independent NOT MET 4. Stand-Sit independent with FWW NOT MET 5. Bed-Chair independent with FWW NOT MET 6. Chair-Bed independent with FWW NOT MET 7. Independent gait on level surface with use of FWW for at least 300 feet without report of pain nor dyspnea NOT MET DISCHARGE RECOMMENDATIONS: [] ? Home with no services [] [X] ? Home with services.? Home when medically cleared by orthopedic surgeon/hospitalist.? Recommend home health PT services in order to progress mobility level using least restrictive assistive ambulatory device, assess home safety, identify additional equipment needs, and establish a functional maintenance program that will increase ability of patient to remain at home. [] ? Home with outpatient PT [] [] ? SNF for continued rehabilitation [] [] ? Retirement Care [] [] ? SNF versus LTC based on ability to participate and progress [] TREATMENT CODE/TIME: [facility] Thank you for the opportunity to participate in the care of this patient. Jaja Treadwell PT, DPT, CLT [facility] [place], [place]
== END 2022-05-31 13:29 | disposition home or self-care (01) | DRG 470 ==
LOC: PDS 09:51 → MS 12:00
PROVIDERS: Admitting Provider Student in an Organized Health Care Education/Training Program; PCP Student in an Organized Health Care Education/Training Program; Visit Provider Student in an Organized Health Care Education/Training Program
PROC: 0SRD0J9 Replacement of Left Knee Joint with Synthetic Substitute, Cemented, Open Approach (ICD-10-PCS; CPT 27447; principal; 2022-05-26 09:30)
DX: M17.12 Unilateral primary osteoarthritis, left knee (principal); I42.8 Other cardiomyopathies; Z79.4 Long term (current) use of insulin; I89.0 Lymphedema, not elsewhere classified; I48.91 Unspecified atrial fibrillation; I44.30 Unspecified atrioventricular block; Z95.0 Presence of cardiac pacemaker; K21.9 Gastro-esophageal reflux disease without esophagitis; J45.909 Unspecified asthma, uncomplicated; E78.5 Hyperlipidemia, unspecified; E03.9 Hypothyroidism, unspecified; M54.16 Radiculopathy, lumbar region; M48.061 Spinal stenosis, lumbar region without neurogenic claudication; Z96.651 Presence of right artificial knee joint; Z79.01 Long term (current) use of anticoagulants; G89.18 Other acute postprocedural pain; M25.562 Pain in left knee; I95.81 Postprocedural hypotension; E11.65 Type 2 diabetes mellitus with hyperglycemia
CPT/HCPCS: 27447; 36415; 76942; 80048; 85027; 87635; 94640; 97110; 97162; 97530; 81003; J0690; J1100; J1885; J2250; J2370; J2405; J3490

== ENCOUNTER → 2022-06-07 10:23 | Outpatient (BNVA) | payer MEDICARE, SELFPAY | PROVIDERS: PCP Student in an Organized Health Care Education/Training Program; Referring Provider Student in an Organized Health Care Education/Training Program | DX: R60.0 Localized edema; Z47.1 Aftercare following joint replacement surgery; Z96.652 Presence of left artificial knee joint ==

== ENCOUNTER 2022-06-08 12:39 | Outpatient (REF) | payer MEDICARE, SELFPAY ==
[2022-06-08 13:30] LABS: Abs Immature Grans 0.12 10^3/uL (0.0-0.06); Absolute Basophil Count 0.04 10^3/uL (0.0-0.2); Absolute Eosinophil Count 0.38 10^3/uL (0.0-0.7); Absolute Lymphocyte Count 1.29 10^3/uL (1.2-3.4); Absolute Monocyte Count 0.58 10^3/uL (0.1-0.8); Absolute Neutrophil Count 6.19 10^3/uL (1.2-6.7); Basophils % 0.5; Eosinophils % 4.4; HCT 33.2 % (36.0-46.0); HGB 10.7 g/dL (11.2-15.7); Immature Grans % 1.4; MCH 31.3 pg (27.0-33.0); MCHC 32.2 % (32.0-36.0); MCV 97 fL (80-95); MPV 10.1 fL (8.0-11.0); Monocytes % 6.7; Platelet Count 436 10^3/uL (130-400); RBC 3.42 10^6/uL (3.93-5.22); RDW-SD 48.6 fL
[2022-06-08 13:37] LABS: ALT 27 U/L (14-59); AST 41 U/L (15-37); Albumin 3.4 g/dL (3.4-5.0); Alkaline Phosphatase 74 U/L (46-116); Anion Gap 7.2 mmol/L (3-11); BUN 12 mg/dL (7-18); Bilirubin, Total 0.5 mg/dL (0.2-1.0); CO2 31.8 mmol/L (21.0-32.0); Calcium 9.1 mg/dL (8.5-10.1); Chloride 99 mmol/L (98-107); Glucose 107 mg/dL (74-106); Potassium 3.9 mmol/L (3.5-5.1); Sodium 138 mmol/L (136-145); Total Protein 6.7 g/dL (6.4-8.2)
== END 2022-06-08 12:40 | disposition home or self-care (01) ==
LOC: LBN 12:39
PROVIDERS: PCP Student in an Organized Health Care Education/Training Program; Visit Provider Student in an Organized Health Care Education/Training Program
DX: R68.89 Other general symptoms and signs (principal)
CPT/HCPCS: 80053; 85025

== ENCOUNTER 2022-06-14 12:26 | Outpatient (CLI) | payer MEDICARE, SELFPAY ==
--- NOTE | 2022-06-14 10:15 | DI.RAD_ITS ---
Exam(s) XR CHEST 2V PA LATERAL EXAM: XR CHEST 2V PA LATERAL CLINICAL HISTORY: Acute Dyspnea-R06.00, Known Cardiomyopathy, Acute SOB TECHNIQUE: 2D digital imaging was performed. COMPARISON: CR XR CHEST 2V PA LATERAL from 08/25/2021 FINDINGS: A pacemaker is noted. HEART: Normal size. Aorta: Not dilated. PULMONARY VASCULATURE: Normal. LUNGS: Clear. PLEURAL SPACE: No pleural effusion or pneumothorax. BONE:Unremarkable for age. IMPRESSION: No acute abnormality. DATA REPOSITORY: RADIATION DOSE DELIVERED:
== END 2022-06-14 12:46 ==
LOC: DI 12:28
PROVIDERS: PCP Student in an Organized Health Care Education/Training Program; Visit Provider Family Medicine
DX: R06.00 Dyspnea, unspecified (principal); I42.9 Cardiomyopathy, unspecified
CPT/HCPCS: 71046

== ENCOUNTER 2022-06-14 14:47 | Outpatient (CLI) | payer MEDICARE, SELFPAY ==
--- NOTE | 2022-06-14 14:45 | RT.EKG_ITS ---
APPROVED REPORT Exam: Resting ECG Reason for Exam: Shortness of breath Patient Location: O HR:74 bpm ECG Measurements Heart Rate 74 AXIS WV [id number] P [id number] QRSd 95 QRS 36 QT 446 T 32 QTc 495 Conclusion Probably sinus rhythm with atrial premature beats Test of baseline artifact Borderline prolonged QT interval...QTc >485mS
== END 2022-06-14 14:48 | disposition home or self-care (01) ==
LOC: DI.KIM 14:48
PROVIDERS: PCP Student in an Organized Health Care Education/Training Program; Visit Provider Family Medicine
DX: R06.02 Shortness of breath (principal)
CPT/HCPCS: 93010

== ENCOUNTER 2022-06-16 12:10 | Outpatient (CLI) | payer MEDICARE, SELFPAY ==
--- NOTE | 2022-06-16 11:15 | DI.CT_ITS ---
Exam(s) CT CHEST PE CTA EXAM: CT CHEST PE CTA CLINICAL HISTORY: Post-op dyspnea,? PE. TECHNIQUE: Imaging Protocol: Axial CT angiography was performed with multi-slice acquisition and mu lti-planar and/or 3D reconstructions. CONTRAST MATERIAL: Intravenous: Omnipaque 350 contrast volume:66 mL COMPARISON: CT CT ABDOMEN PELVIS W from 09/22/[address] THORAX CTA from 09/13/[address] CHEST PE CTA from 08/08/2021 CR XR CHEST 2V PA LATERAL from 06/14/2022 FINDINGS: Tracheobronchial tree: Patent where visualized. Pulmonary parenchyma: No consolidation or dominant measurable mass. Atelectatic changes are seen in t he lung bases. Pulmonary Arteries: No evidence of filling defect to suggest pulmonary emboli. Mediastinum and Maricel: No dominant adenopathy or fluid collection. The esophagus is unremarkable. Th ere is a moderate hiatal hernia. Visualized thyroid gland: Unremarkable. Pleura: No effusion or pneumothorax. Heart: The heart is not dilated. No coronary artery calcifications are seen. No pericardial effusion. Aorta: Thoracic aorta non-dilated. No evidence of dissection. Atherosclerosis is present. Upper abdomen: Unremarkable. Tubes, Catheters, and Lines: Cardiac pacing wires are stable in position. Soft tissues: Unremarkable. Bones: Within normal limits for the patient's age. IMPRESSION: 1. No evidence of pulmonary embolism, thoracic aortic dissection or aneurysm. 2. No acute pulmonary process. RADIATION DOSE DELIVERED: 351.73mGy.cm Total DLP DATA REPOSITORY: All CT scans at this facility are submitted to the National Radiology Data Registry (NRDR) Dose Index Registry (DIR) with the [employer] (ACR). RADIATION OPTIMIZATION: All CT scans at this facility use at least one of these dose optimization te chniques: automated exposure control; mA and/or kV adjustment per patient size (includes targeted exa ms where dose is matched to clinical indication); or iterative reconstruction.
[2022-06-16] MEDS: Omnipaque 350 MG/ML 100 ML BTL IJ (14:11)
[2022-06-16] MEDS: Normal Saline - Diluent 50 ML VIAL IJ (14:13)
[2022-06-16] MEDS: Normal Saline Flush 10 ML SYR IVP (14:14)
== END 2022-06-16 12:30 ==
LOC: DI 12:10
PROVIDERS: PCP Student in an Organized Health Care Education/Training Program; Visit Provider Family Medicine
DX: R06.09 Other forms of dyspnea (principal); Z95.0 Presence of cardiac pacemaker; R06.02 Shortness of breath
CPT/HCPCS: 71275; J3490

== ENCOUNTER 2022-06-21 08:59 | Outpatient (REF) | payer MEDICARE, SELFPAY ==
[2022-06-20 16:07] LABS: BUN 16 mg/dL (7-18); Calcium 8.9 mg/dL (8.5-10.1); Glucose 197 mg/dL (74-106); Sodium 144 mmol/L (136-145)
[2022-06-20 16:08] LABS: Anion Gap 7.5 mmol/L (3-11); CO2 31.5 mmol/L (21.0-32.0); Chloride 105 mmol/L (98-107); NT-proBNP 166 pg/mL (<300); Potassium 2.6 mmol/L (3.5-5.1)
== END 2022-06-21 09:00 | disposition home or self-care (01) ==
LOC: LBN 08:59
PROVIDERS: PCP Student in an Organized Health Care Education/Training Program; Visit Provider Student in an Organized Health Care Education/Training Program
DX: R06.00 Dyspnea, unspecified (principal); R06.02 Shortness of breath; R06.89 Other abnormalities of breathing; R60.0 Localized edema; Z86.79 Personal history of other diseases of the circulatory system; E08.65 Diabetes mellitus due to underlying condition with hyperglycemia; I10 Essential (primary) hypertension; E78.5 Hyperlipidemia, unspecified; E11.65 Type 2 diabetes mellitus with hyperglycemia; E83.42 Hypomagnesemia
CPT/HCPCS: 80048; 83880

== ENCOUNTER 2022-06-23 01:44 | Outpatient (CLI) | payer MEDICARE, SELFPAY ==
--- NOTE | 2022-06-23 08:00 | DI.CT_ITS ---
Exam(s) CT CHEST HIGH RESOLUTION EXAM: CT CHEST HIGH RESOLUTION CLINICAL HISTORY: evaluate for AMIODARONE TOXICITY,SOB,HYPOKALEMIA,HIGH RISK,R06.02,Z79.899. TECHNIQUE: Imaging protocol: Axial computed tomography images were obtained and coronal and sagittal reformatted images were created and reviewed. COMPARISON: CT CT CHEST PE CTA from 06/16/2022 FINDINGS: Tracheobronchial tree: Patent where visualized. Mediastinum and Maricel: No dominant adenopathy or fluid collection. The esophagus is unremarkable. Pulmonary parenchyma: There are ground-glass opacity seen in the lung bases. No focal consolidations are seen. No noncalcified pulmonary nodules or linear opacities are present. No architectural dist ortion. Pleura: No effusion or pneumothorax. Heart: The heart is not dilated. No coronary artery calcifications are seen. There is a cardiac pacem mickey in place. Aorta: Thoracic aorta non-dilated. Atherosclerosis is present. Upper abdomen: There is increased density of the liver. Patient is status post cholecystectomy. Th ere is a moderate hiatal hernia. Lymph nodes: Within normal limits. Bones:Within normal limits for the patient's age. Degenerative changes are seen in the shoulders kai aterally. Tubes, Catheters, and Lines: There is a cardiac pacemaker in place. IMPRESSION: 1. Ground-glass opacities seen predominantly in the lung bases. This can be seen with amiodarone tox icity. 2. Increased attenuation of the liver and spleen which can be seen with amiodarone administration. 3. No focal consolidating infiltrates. RADIATION DOSE DELIVERED: 576.35mGy.cm Total DLP DATA REPOSITORY: All CT scans at this facility are submitted to the National Radiology Data Registry (NRDR) Dose Index Registry (DIR) with the [employer] (ACR). RADIATION OPTIMIZATION: All CT scans at this facility use at least one of these dose optimization te chniques: automated exposure control; mA and/or kV adjustment per patient size (includes targeted exa ms where dose is matched to clinical indication); or iterative reconstruction.
== END 2022-06-23 02:04 ==
PROVIDERS: PCP Student in an Organized Health Care Education/Training Program; Visit Provider Student in an Organized Health Care Education/Training Program
DX: R06.02 Shortness of breath (principal); Z79.899 Other long term (current) drug therapy; Z95.0 Presence of cardiac pacemaker; R91.8 Other nonspecific abnormal finding of lung field; E87.6 Hypokalemia
CPT/HCPCS: 71250

== ENCOUNTER 2022-06-24 16:32 | Outpatient (REF) | payer MEDICARE, SELFPAY ==
[2022-06-24 17:06] LABS: Hemoglobin A1C 6.7 % (<5.7)
[2022-06-24 17:13] LABS: Anion Gap 8.1 mmol/L (3-11); BUN 16 mg/dL (7-18); CO2 29.9 mmol/L (21.0-32.0); CREATININE 1.1 mg/dL (0.55-1.02); Calcium 9.4 mg/dL (8.5-10.1); Chloride 105 mmol/L (98-107); Estimated GFR 49.86 (mL/min/1.73m2); Glucose 163 mg/dL (74-106); Magnesium 1.6 mg/dL (1.8-2.4); Potassium 5.2 mmol/L (3.5-5.1); Sodium 143 mmol/L (136-145); TSH (W/Ref FT4) 3.41 uIU/mL (0.36-3.74)
== END 2022-06-24 16:33 | disposition home or self-care (01) ==
LOC: NCHCN 16:32
PROVIDERS: PCP Student in an Organized Health Care Education/Training Program; Visit Provider Student in an Organized Health Care Education/Training Program
DX: E08.65 Diabetes mellitus due to underlying condition with hyperglycemia (principal); E87.6 Hypokalemia; R06.02 Shortness of breath
CPT/HCPCS: 80048; 83036; 83735; 84443

== ENCOUNTER 2022-06-28 18:45 | Outpatient (REF) | payer MEDICARE, SELFPAY ==
[2022-06-28 18:18] LABS: Anion Gap 9.9 mmol/L (3-11); BUN 25 mg/dL (7-18); CO2 28.1 mmol/L (21.0-32.0); CREATININE 1.2 mg/dL (0.55-1.02); Calcium 9.2 mg/dL (8.5-10.1); Chloride 105 mmol/L (98-107); Estimated GFR 44.91 (mL/min/1.73m2); Glucose 136 mg/dL (74-106); Magnesium 1.8 mg/dL (1.8-2.4); Potassium 4.4 mmol/L (3.5-5.1); Sodium 143 mmol/L (136-145)
== END 2022-06-28 18:46 | disposition home or self-care (01) ==
LOC: LBN 18:45
PROVIDERS: PCP Student in an Organized Health Care Education/Training Program; Visit Provider Student in an Organized Health Care Education/Training Program
DX: E87.5 Hyperkalemia (principal); R79.0 Abnormal level of blood mineral
CPT/HCPCS: 80048; 83735

== ENCOUNTER 2022-07-01 11:20 | Outpatient (CLI) | payer MEDICARE, SELFPAY ==
--- NOTE | 2022-07-01 11:15 | RT.EKG_ITS ---
APPROVED REPORT Exam: Resting ECG Reason for Exam: atrial tachy Patient Location: O HR:85 bpm ECG Measurements Heart Rate 85 AXIS IA 56 P -72 QRSd 101 QRS 7 QT 441 T 36 QTc 525 Conclusion Atrial paced rhythm Borderline T wave abnormalities...T/QRS ratio < 1/20 or flat T Baseline wander in lead(s) V5
== END 2022-07-01 11:21 | disposition home or self-care (01) ==
LOC: DI.CARD 11:20
PROVIDERS: PCP Student in an Organized Health Care Education/Training Program; Visit Provider Internal Medicine Cardiovascular Disease
DX: I47.1 Supraventricular tachycardia (principal); R94.31 Abnormal electrocardiogram [ECG] [EKG]
CPT/HCPCS: 93010

== ENCOUNTER → 2022-07-01 12:45 | Outpatient (BNVA) | payer MEDICARE, SELFPAY | PROVIDERS: PCP Student in an Organized Health Care Education/Training Program; Visit Provider Internal Medicine Cardiovascular Disease | DX: I48.91 Unspecified atrial fibrillation (principal); Z95.0 Presence of cardiac pacemaker; I42.8 Other cardiomyopathies; I47.1 Supraventricular tachycardia; R06.02 Shortness of breath | CPT/HCPCS: 93005; 99214 ==

== ENCOUNTER 2022-07-05 15:32 | Outpatient (CLI) | payer MEDICARE, SELFPAY ==
--- NOTE | 2022-07-05 13:00 | DI.RAD_ITS ---
Exam(s) XR KNEE LT 1V XR STANDING ALIGNMENT EXAM: XR STANDING ALIGNMENT and XR knee LT 1 V CLINICAL HISTORY: S/P L TKA. TECHNIQUE: 2D digital imaging was performed. Five images were obtained. COMPARISON: CR XR KNEE LT 4V AP,LAT,IFEANYI,PAT from 03/30/2022 CR XR KNEE LT 1V from 07/05/2022 FINDINGS: BONES: There are degenerative changes in the hips, right greater than left. The patient now has bila teral total knee replacements which appear in good position. The ankles are well maintained.There is no significant leg length discrepancy. SOFT TISSUE: Normal. IMPRESSION: Bilateral total knee replacements. DATA REPOSITORY: RADIATION DOSE DELIVERED:
== END 2022-07-05 15:33 | disposition home or self-care (01) ==
LOC: DIORS 15:33
PROVIDERS: PCP Student in an Organized Health Care Education/Training Program; Referring Provider Student in an Organized Health Care Education/Training Program; Visit Provider Physician Assistant
DX: Z96.652 Presence of left artificial knee joint (principal); Z47.1 Aftercare following joint replacement surgery
CPT/HCPCS: 73560; 77073

== ENCOUNTER 2022-07-21 09:11 | Outpatient (CLI) | payer MEDICARE, SELFPAY ==
--- NOTE | 2022-07-21 06:00 | DI.RAD_ITS ---
Exam(s) XR PAIN CLINIC LUMBAR SP 2V EXAM: XR PAIN CLINIC LUMBAR SP 2V CLINICAL HISTORY: DX: Lumbar Radiculopatchy TECHNIQUE: 2D and realtime digital imaging was performed. CONTRAST MATERIAL: Refer to procedure report. COMPARISON: No exams were available for comparison FINDINGS: Fluoroscopy was provided for Dr. Richmond during the performance of a pain management. Please refer to the procedure report for complete details. Ka,r=6.0 mGy IMPRESSION: RADIATION DOSE DELIVERED:
[2022-07-21 09:36] VITALS: BP 130/77; PULSE 63; RESP 20; TEMP 36.2; O2SAT 100
[2022-07-21] MEDS: Omnipaque 240 MG/ML 50 ML BTL IJ (10:08)
[2022-07-21 10:09] VITALS: BP 123/69; PULSE 63; RESP 18; O2SAT 96
[2022-07-21] MEDS: methylPREDNISolone ACETATE 80 MG/ML VIAL IJ (10:09)
--- NOTE | 2022-07-21 10:17 | PDOC.PAIN ---
Date of service: 07/21/22 Time of Service: 10:22 Pain Clinic Procedure Note Procedure Note Procedure Note: Lumbar Epidural Steroid Injection Procedure Note COMMENTS:She last had this procedure on 02/25/2022 and had 80% pain relief up until about 1-2 weeks ago. She also states that her function was improved >50% during that time. Her blood sugars did not rise with the procedure. Her diabetes is well controlled. I am using 40 mg of Depomedrol, instead of 80mg, because of the diabetes. Dx: Lumbosacral radiculopathy Pre-procedure pain VAS was 4/10 Elaina Huddleston has been referred to the [facility] for lumbar epidural steroid injection. The patient was greeted by the nurse who verified patients name and . Patient was then taken to the fluoroscopy suite. The patient was interviewed and the medial record reviewed. There were no medical, pharmacologic, radiographic, or other structural contraindications to attempting fluoroscopically guided lumbar epidural steroid injection. Risks and expected side effects as well as potential benefits of the procedure were reviewed and voiced concerns expressed. The patient consent form was signed and witnessed. Standard patient time-out procedure was performed. The patient was placed in the prone position on the fluoroscopy table and automated blood pressure cuff and pulse oximeter applied. The skin entry point for entering/approaching the epidural space at L5-S1 and marked. Following thorough chlorhexadine preparation of the skin and draping and 1% lidocaine infiltration of the skin entry point and subcutaneous tissues, a 18 gauge Touhy needle was placed under fluoroscopic guidance and with loss of resistance technique into the epidural space. Needle tip placement and depth were aided and confirmed by fluoroscopy. There was no paresthesia or return of blood or CSF through the needle. 1 cc's of Omnipaque 240 was injected with clear epidural spread confirmed with fluoroscopy. 40mg depomedrol was injected. This was followed by 2 cc of 1% Lidocaine. The needle was then removed. There was not any unusual discomfort expressed by Elaina Huddleston. Patient's vital signs were stable throughout the procedure and were as recorded in nursing records. Follow up plans and appointments were discussed with patient. Post procedure instruction was given as documented in nursing records and having met discharge criteria and was discharged from the Pain Management Center. COMMENTS: If this procedure is helpful, it can be completed up to 3 times per 12 months. Post-procedure pain VAS was 0/10. If this procedure allows her to have >50% improvement in pain and/or function for at least 3 months, the procedure can be repeated. Nirav Richmond DO, MPH [facility]-Pain Management [facility]
== END 2022-07-21 09:12 | disposition home or self-care (01) ==
LOC: PC 09:11
PROVIDERS: PCP Student in an Organized Health Care Education/Training Program; Visit Provider Preventive Medicine Occupational Medicine
DX: M54.17 Radiculopathy, lumbosacral region (principal); M54.50 Low back pain, unspecified
CPT/HCPCS: 62323; 72100; J1040; Q9967

== ENCOUNTER → 2022-08-02 12:55 | Outpatient (BNVA) | payer MEDICARE, SELFPAY | PROVIDERS: PCP Student in an Organized Health Care Education/Training Program; Referring Provider Student in an Organized Health Care Education/Training Program; Visit Provider Student in an Organized Health Care Education/Training Program | DX: Z47.1 Aftercare following joint replacement surgery (principal); Z96.652 Presence of left artificial knee joint ==

== ENCOUNTER 2022-08-24 04:20 | Outpatient (CLI) | payer MEDICARE, SELFPAY ==
--- NOTE | 2022-08-24 14:10 | DI.US_ITS ---
APPROVED REPORT EXAM: Comprehensive 2D, Doppler, and color-flow Echocardiogram Patient Location: Out-Patient Finish Mixer: Casey Howell RDMS, RVT Indications: SOB, AFIB Other Information Study Quality: Adequate Conclusion Normal left ventricular wall thickness and chamber size. Ejection fraction is 55 to 60%. Wall motio n is normal Normal right ventricular size and function Both atria are normal in size Device lead noted in the right heart The aortic valve is sclerotic and trileaflet with mild regurgitation Mild mitral annular calcification. Mildly thickened mitral leaflets. Mild mitral regurgitation Normal tricuspid valve with moderate regurgitation. Estimated right ventricular systolic pressure is 28 mmHg Wall motion Left Ventricle The left ventricle is normal size. The left ventricular systolic function is normal. The left ventric ular ejection fraction is within the normal range. There is normal left ventricular wall thickness. T here is normal LV segmental wall motion. There is no ventricular septal defect visualized. LVEF is 5 5-60%. Right Ventricle The right ventricle is normal size. The right ventricular systolic function is normal. The RVSP is 27 .9 mmHg. Pacemaker lead is present in the right ventricle. Atria The left atrium size is normal. The right atrium size is normal. The interatrial septum is intact wit h no evidence for an atrial septal defect. Aortic Valve The Aortic valve is sclerotic. Aortic valve is trileaflet. There is no aortic valvular stenosis. Mild aortic regurgitation. Mitral Valve Mild mitral annular calcification. The mitral valve is mildly thickened. No evidence of mitral valve stenosis. Mild mitral regurgitation. Tricuspid Valve The tricuspid valve is normal in structure. There is no tricuspid valve stenosis. moderate tricuspid regurgitation. Pulmonic Valve The pulmonary valve is normal in structure. There is no pulmonic valvular stenosis. There is no pulmo sharan valvular regurgitation. Great Vessels The aortic root is normal in size. The ascending aorta is normal in size. Aortic arch is normal in ca liber. IVC is normal in size and collapses >50% with inspiration. Pericardium There is no pericardial effusion. 2D Dimensions IVSD d PLAX 0.85 cm F: 0.6-1.0 LV Vol A2C d MOD 94.4 mL LVPW d PLAX 0.82 cm F: 0.6 - 1.0 LV Vol A4C d MOD 69.7 mL LVID d PLAX 4.41 cm F: 3.8 - 5.2 LA vol/ BSA A2C s A-L 37.3 mL/m2 LVDs 3.05 cm F: 2.2 - 3.5 LA vol/ BSA A4C s A-L 36.2 mL/m2 Ao Root d 2.71 cm F: 2.7 - 3.3 LA Vol/ BSA Biplane s A-L 37.1 mL/m2 RA Area A4C 11.49 cm2 LA Area A4C s MOD 21.07 cm2 RA Vol/ BSA A4C s A-L 14.4 mL/m2 LA Area A2C s MOD 21.20 cm2 Ao Asc Diam d 3.18 cm F: 2.3 - 3.1 LV EF A4C MOD 55.4 % LV EF Teichholz 58.6 % LV EF A2C MOD 54.8 % LVEF (Arreola's) 53.61 % F: 54 - 74 LV EF Biplane MOD 53.6 % LV Volume 66.29 mL F: 46 - 106 SV 44.92 mL LV Volume Index 38.54 mL/m2 F: 29 - 61 SV Index 26.15 mL/m2 LV Vol Biplane MOD 83.8 mL FS 30.75 % M-Mode TAPSE 1.99 cm (M/F) >1.7 LV Diastology MV E' medial 0.066 (>0.07 m/s) E/A Ratio 1.2 LV E/e MED 10.05 (<14) MV E Vmax 0.67 (0.4-1.3 m/s) MV E' lateral 0.086 (>0.1 m/s) MV A Vmax 0.55 (0.4-1.3 m/s) LV E/e LAT 7.80 (<14) MV E/A Ratio 1.13 MV E/E' medial 10.10 MV E/E' lateral 7.80 Aortic Valve LVOT Area 2.60 cm2 AoV Area Vmax 1.78 cm2 LVOT Vmax 0.86 m/s AoV Area/ BSA (Vmax) 1.04 cm2/m2 LVOT Mean Bret. 0.57 m/s MARIKA Mean Bret. 1.61 cm2 LVOT Peak Grad 2.9 mmHg MARIKA Mean Bret. Index 0.94 cm2/m2 LVOT Mean Grad 1.5 mmHg AR DT 1807 msec LVOT VTI 0.188 m AR PHT 524 msec LVOT Diam s 1.80 cm AoV Vmax 1.25 m/s Velocity Ratio 0.69 AoV Mean Bret. 0.92 m/s AoV Peak Grad 6.3 mmHg LVOT SV 48.99 mL AoV Mean Grad 3.8 mmHg AoV VTI 0.286 m AoV Area VTI 1.71 cm2 AoV Area/ BSA (VTI) 1.00 cm/m2 Mitral Valve MV DT 243 (160-240 msec) MV PHT 70 msec MV Area PHT 3.13 cm2 MV VTI 0.208 m MV Area VTI 2.35 (4.0-6.0 cm2) Pulmonary Valve PV Vmax 1.09 (0.5-1.5 m/s) RVOT Peak Gr. 0.61 mmHg PV Peak Grad 4.7 mmHg RVOT Mean Gr. 0.30 mmHg PV Mean Grad 2.4 mmHg RVOT VTI 0.092 m PV VTI 0.275 m RVOT Vmax 0.39 m/s Tricuspid Valve TR Peak Grad 24.8 mmHg TR Vmax 2.49 m/s RA Pressure 3.00 mmHg RVSP (TR) 27.9 mmHg
== END 2022-08-24 04:40 ==
LOC: DI 04:20
PROVIDERS: PCP Student in an Organized Health Care Education/Training Program; Visit Provider Internal Medicine Cardiovascular Disease
DX: I48.91 Unspecified atrial fibrillation (principal)
CPT/HCPCS: 93306

== ENCOUNTER → 2022-09-08 12:43 | Outpatient (BNVA) | payer MEDICARE, SELFPAY | PROVIDERS: PCP Student in an Organized Health Care Education/Training Program; Referring Provider Student in an Organized Health Care Education/Training Program; Visit Provider Physician Assistant | DX: Z45.010 Encounter for checking and testing of cardiac pacemaker pulse generator [battery] (principal); I48.91 Unspecified atrial fibrillation; Z79.01 Long term (current) use of anticoagulants | CPT/HCPCS: 93280; 99213 ==

== ENCOUNTER 2022-09-17 12:12 | Outpatient (CLI) | payer MEDICARE, SELFPAY ==
[2022-09-17 12:00] LABS: ALT 23 U/L (14-59); AST 21 U/L (15-37); Albumin 3.5 g/dL (3.4-5.0); Alkaline Phosphatase 56 U/L (46-116); Anion Gap 5.5 mmol/L (3-11); BUN 17 mg/dL (7-18); Bilirubin, Total 0.4 mg/dL (0.2-1.0); CO2 29.5 mmol/L (21.0-32.0); CREATININE 0.8 mg/dL (0.55-1.02); Chloride 103 mmol/L (98-107); Estimated GFR 73.06 (mL/min/1.73m2); Glucose 143 mg/dL (74-106); Magnesium 1.5 mg/dL (1.8-2.4); Potassium 3.2 mmol/L (3.5-5.1); Sodium 138 mmol/L (136-145); TSH (W/Ref FT4) 1.58 uIU/mL (0.36-3.74); Total Protein 6.9 g/dL (6.4-8.2)
[2022-09-17 12:09] LABS: Bilirubin, Direct 0.1 mg/dL (0.0-0.2)
== END 2022-09-17 12:13 | disposition home or self-care (01) ==
LOC: LBO 12:14
PROVIDERS: PCP Student in an Organized Health Care Education/Training Program; Visit Provider Student in an Organized Health Care Education/Training Program
DX: N17.9 Acute kidney failure, unspecified (principal); T50.2X5A Adverse effect of carbonic-anhydrase inhibitors, benzothiadiazides and other diuretics, initial encounter; I42.9 Cardiomyopathy, unspecified; Z79.899 Other long term (current) drug therapy; E87.6 Hypokalemia
CPT/HCPCS: 36415; 80048; 80076; 83735; 84443

== ENCOUNTER 2022-09-21 03:59 | Outpatient (CLI) | payer MEDICARE, SELFPAY ==
[2022-09-21 12:42] LABS: Anion Gap 8.7 mmol/L (3-11); BUN 17 mg/dL (7-18); CO2 30.3 mmol/L (21.0-32.0); CREATININE 0.9 mg/dL (0.55-1.02); Calcium 9.5 mg/dL (8.5-10.1); Chloride 102 mmol/L (98-107); Estimated GFR 63.43 (mL/min/1.73m2); Glucose 146 mg/dL (74-106); Magnesium 1.4 mg/dL (1.8-2.4); Potassium 3.8 mmol/L (3.5-5.1); Sodium 141 mmol/L (136-145)
== END 2022-09-21 04:00 | disposition home or self-care (01) ==
LOC: LBO 03:59
PROVIDERS: PCP Student in an Organized Health Care Education/Training Program; Visit Provider Student in an Organized Health Care Education/Training Program
DX: E87.6 Hypokalemia (principal); N17.9 Acute kidney failure, unspecified
CPT/HCPCS: 36415; 80048; 83735

== ENCOUNTER → 2022-09-27 10:09 | Outpatient (BNVA) | payer MEDICARE, SELFPAY | PROVIDERS: PCP Student in an Organized Health Care Education/Training Program; Visit Provider Student in an Organized Health Care Education/Training Program | DX: Z47.1 Aftercare following joint replacement surgery (principal); Z96.652 Presence of left artificial knee joint | CPT/HCPCS: 99213 ==

== ENCOUNTER 2022-10-05 01:57 | Outpatient (CLI) | payer MEDICARE, SELFPAY ==
[2022-10-05 12:30] LABS: ALT 22 U/L (14-59); AST 21 U/L (15-37); Albumin 3.6 g/dL (3.4-5.0); Alkaline Phosphatase 60 U/L (46-116); Bilirubin, Direct 0.1 mg/dL (0.0-0.2); Bilirubin, Total 0.5 mg/dL (0.2-1.0); TSH (W/Ref FT4) 0.64 uIU/mL (0.36-3.74); Total Protein 7.1 g/dL (6.4-8.2)
== END 2022-10-05 01:58 | disposition home or self-care (01) ==
LOC: LBO 01:58
PROVIDERS: PCP Student in an Organized Health Care Education/Training Program; Referring Provider Student in an Organized Health Care Education/Training Program; Visit Provider Student in an Organized Health Care Education/Training Program
DX: E87.6 Hypokalemia (principal); I48.91 Unspecified atrial fibrillation; I42.9 Cardiomyopathy, unspecified; Z79.899 Other long term (current) drug therapy; R60.0 Localized edema; R79.89 Other specified abnormal findings of blood chemistry; R94.6 Abnormal results of thyroid function studies
CPT/HCPCS: 36415; 80076; 84443

== ENCOUNTER 2022-10-22 01:23 | Outpatient (CLI) | payer MEDICARE, SELFPAY ==
[2022-10-22 10:11] LABS: Anion Gap 5.7 mmol/L (3-11); BUN 11 mg/dL (7-18); CO2 34.3 mmol/L (21.0-32.0); CREATININE 0.7 mg/dL (0.55-1.02); Calcium 8.7 mg/dL (8.5-10.1); Chloride 101 mmol/L (98-107); Estimated GFR 85.76 (mL/min/1.73m2); Glucose 145 mg/dL (74-106); Magnesium 1.7 mg/dL (1.8-2.4); Potassium 3.5 mmol/L (3.5-5.1); Sodium 141 mmol/L (136-145)
== END 2022-10-22 01:24 | disposition home or self-care (01) ==
LOC: LBO 01:23
PROVIDERS: PCP Student in an Organized Health Care Education/Training Program; Referring Provider Student in an Organized Health Care Education/Training Program; Visit Provider Student in an Organized Health Care Education/Training Program
DX: Z91.89 Other specified personal risk factors, not elsewhere classified (principal); R79.89 Other specified abnormal findings of blood chemistry
CPT/HCPCS: 36415; 80048; 83735

== ENCOUNTER 2022-11-18 09:42 | Outpatient (CLI) | payer MEDICARE, SELFPAY ==
[2022-11-18 09:58] VITALS: BP 124/73; PULSE 78; RESP 20; TEMP 36.6; O2SAT 95
--- NOTE | 2022-11-18 10:29 | DI.RAD_ITS ---
Exam(s) XR PAIN CLINIC LUMBAR SP 2V EXAM: XR PAIN CLINIC LUMBAR SP 2V CLINICAL HISTORY: Dx: Lumbar Radiculopathy TECHNIQUE: 2D and realtime digital imaging was performed. Radiologist not present. CONTRAST MATERIAL: None. COMPARISON: No exams were available for comparison FINDINGS: Fluoroscopy was provided for pain management therapy. Please refer to procedure report or details. Radiation Exposure Index: Ka,r=7.67 mGy IMPRESSION: As above. RADIATION DOSE DELIVERED:
[2022-11-18 10:31] VITALS: BP 125/67; PULSE 65; RESP 16; O2SAT 100
[2022-11-18] MEDS: Omnipaque 240 MG/ML 50 ML BTL IJ (10:31)
[2022-11-18] MEDS: methylPREDNISolone ACETATE 80 MG/ML VIAL IJ (10:31)
--- NOTE | 2022-11-18 10:35 | PDOC.PAIN_ITS ---
Date of service: 11/18/22 Time of Service: 10:35 Pain Managment Procedure Note Procedure Note Procedure Note: PROCEDURE NOTE LUMBAR EPIDURAL STEROID INJECTION Date of Service: November 18, 2022 Patient:Elaina Winn? Provider: Nirav Richmond DO, MPH Elaina Huddleston has been referred to the [facility] for a lumbar epidural steroid injection. Pre-operative diagnosis: Lumbosacral Radiculopathy Post-operative diagnosis: Same Pre-Procedure Pain: VAS= 8 /10 Comments: PCP has allowed her to hold the Eliquis. She had >60% pain relief for >3 months with her last LESI on 07/21/22. Elaina was interviewed and the medical record was reviewed.? There were no medical, pharmacologic, radiographic or other structural contraindications to attempting fluoroscopically guided Lumbar epidural steroid injection.? Risks, potential side effects, indications, and potential benefits of the procedure were reviewed with Elaina.? Questions and concerns were addressed.? After it was clear that Elaina was fully informed about the procedure, the printed consent form was signed by the patient and myself.? Elaina was placed in the prone position on the fluoroscopy table and automated blood pressure cuff and pulse oximeter applied. The skin entry point for entering/approaching the epidural space for the lumbar epidural steroid injection was marked. Following thorough chlorhexadine preparation of the skin and draping and 1% lidocaine infiltration of the skin entry point and subcutaneo us tissues, an 18 gauge Touhy needle was placed and advanced under fluoroscopic guidance and with loss of resistance technique into the L5-S1 epidural space. Needle tip placement and depth were aided and confirmed by fluoroscopy. There was no paresthesia or return of blood or CSF through the needle. 1 mls of Omnipaque 240 was injected with clear epidural spread confirmed with fluoroscopy. 80 mg of Depo-Medrol was? injected. This was followed by 1 ml of preservative-free normal saline to flush the steroid out of the needle. There was no unusual discomfort expressed by Elaina. The needle was withdrawn without difficulty. (49 mls of Omnipaque was wasted) Elaina was observed and was without hemodynamic, neurologic, or allergic reactions.? Fluoroscopic images were digitally archived. Elaina's vital signs were stable throughout the procedure and were as recorded in nursing records. Follow up plans and appointments were discussed with Elaina. Post procedure instruction was given as documented in nursing records and having met discharge criteria Elaina was discharged from the [facility]. COMMENTS: No apparent complications. Post-procedure pain: VAS= 0/10. Elaina to contact [facility] as needed. If at least 50% improvement in pain and/or function for at least 3 months is achieved, this procedure can be repeated. I personally performed this entire procedure. NIRAV RICHMOND DO, MPH ABPMR-subspecialty board certification in Pain Medicine [facility]
== END 2022-11-18 09:43 | disposition home or self-care (01) ==
LOC: PC 09:42
PROVIDERS: PCP Student in an Organized Health Care Education/Training Program; Visit Provider Preventive Medicine Occupational Medicine
DX: M54.50 Low back pain, unspecified (principal); M54.17 Radiculopathy, lumbosacral region
CPT/HCPCS: 62323; 72100; J1040; Q9967

== ENCOUNTER 2022-12-31 07:47 | Emergency (ER) | payer MEDICARE, SELFPAY ==
[2022-12-31] VITALS (24 sets, daily range): BP systolic 106–150; BP diastolic 49–71; PULSE 59–85; RESP 9–22; TEMP 37.2; O2SAT 93–100
--- NOTE | 2022-12-31 07:45 | RT.EKG_ITS ---
APPROVED REPORT Exam: Resting ECG Reason for Exam: SOB Patient Location: E HR:76 bpm ECG Measurements Heart Rate 76 AXIS MA 219 P -45 QRSd 93 QRS 11 QT 407 T 11 QTc 455 Conclusion Sinus or ectopic atrial rhythm...P axis (-45,135) Atrial premature complex...SV complex w/ short R-R interval Borderline prolonged MA interval...MA >212, V-rate 50- 90
--- NOTE | 2022-12-31 08:00 | DI.CT_ITS ---
Exam(s) CT CHEST PE CTA EXAM: CT CHEST PE CTA CLINICAL HISTORY: shortness of breath, chest pain. TECHNIQUE: Imaging Protocol: Axial CT angiography was performed with multi-slice acquisition and mu lti-planar and/or 3D reconstructions. CONTRAST MATERIAL: Intravenous: Omnipaque 350 contrast volume:70 mL COMPARISON: CT CT CHEST PE CTA from 06/16/[address] CHEST HIGH RESOLUTION from 06/23/2022 FINDINGS: Tracheobronchial tree: Patent where visualized. Pulmonary parenchyma: There is a ground-glass infiltrate in the right lower lobe suspicious for pneum onia. No architectural distortion. Pulmonary Arteries: No evidence of filling defect to suggest pulmonary emboli. Mediastinum and Maricel: No dominant adenopathy or fluid collection. The esophagus is unremarkable. St able mildly enlarged right hilar lymph node. Hiatal hernia. Visualized thyroid gland: Unremarkable. Pleura: No effusion or pneumothorax. Heart: Cardiomegaly. No coronary artery calcifications are seen. No pericardial effusion. Aorta: Thoracic aorta non-dilated. No evidence of dissection. Atherosclerosis. Upper abdomen: Status post cholecystectomy. Tubes, Catheters, and Lines: There is a cardiac pacing device in place. Soft tissues: Unremarkable. Bones: Within normal limits for the patient's age. IMPRESSION: 1. No evidence of pulmonary embolism, thoracic aortic dissection or aneurysm. 2. Ground-glass infiltrate in the right lower lobe suspicious for pneumonia. 3. Findings were discussed with Dr. Dalal at 9:38 a.m. on 12/31/2022. RADIATION DOSE DELIVERED: 404.21mGy.cm Total DLP DATA REPOSITORY: All CT scans at this facility are submitted to the National Radiology Data Registry (NRDR) Dose Index Registry (DIR) with the [employer] (ACR). RADIATION OPTIMIZATION: All CT scans at this facility use at least one of these dose optimization te chniques: automated exposure control; mA and/or kV adjustment per patient size (includes targeted exa ms where dose is matched to clinical indication); or iterative reconstruction.
--- NOTE | 2022-12-31 08:09 | W.ED.GENAD ---
Discharge Plan Disposition Patient Disposition: Home Condition: Stable Discharge Details Clinical Impression: Shortness of breath, Hypokalemia, CAP (community acquired pneumonia), Hypomagnesemia Primary Care Provider: Vicenta Freed ED Provider: Kg Dalal Home Meds and New Rx's Prescriptions: New levofloxacin 750 mg tablet 750 mg PO DAILY Qty: 5 0RF Continued (DME) compress.stocking,knee,reg,lrg Misc See Rx Instructions .ROUTE .MEDSUPPLY Qty: 1 0RF Rx Instructions: As directed, 20mmHg-30mmHg (pt unable to tolerate higher pressure) Mylanta Coat-Cool 1,200 mg-270 mg -80 mg/10 mL suspension 10 ml PO PRN PRN (DME) lancing device with lancets [Vingle Delica Plus Lanc Dev] Kit See Rx Instructions .ROUTE .MEDSUPPLY Qty: 1 0RF Rx Instructions: Monitor BS 2-3x/wk; E11.9, to achieve A1C under 7%, T 2 DM (DME) blood-glucose meter [OneTo [employer] Verio Meter] Misc See Rx Instructions .ROUTE .MEDSUPPLY Qty: 1 0RF Rx Instructions: Monitor BS 2-3x/wk; E11.9, to achieve A1C under 7%, T 2 DM potassium chloride 20 mEq tablet extended release 20 meq PO BID PRN (Reason: very low K as discussed with PCP) Patient Comments: patient no longer taking fluticasone propionate [Flovent HFA] 110 mcg/actuation HFA aerosol inhaler 2 puff Inhalation BID Qty: 3 3RF Rx Instructions: Rinse mouth after use Eliquis 5 mg tablet 5 mg PO BID Qty: 180 6RF albuterol sulfate [ProAir HFA] 90 mcg/actuation HFA aerosol inhaler 2 puff Inhalation Q4H PRN PRN (Reason: shortness of breath or wheezing) Qty: 3 1RF pantoprazole 40 mg tablet,delayed release (DR/EC) 40 mg PO DAILY Rx Instructions: 09/30/21- increase to BID . Bhavani Altte, RESTORATIVE CARE TECHNICIAN [facility] gastro 10/29/21 decrease to daily P.Margarete, RESTORATIVE CARE TECHNICIAN (DME) pen needle, diabetic [BD Ultra-Fine Mini Pen Needle] 31 gauge x 3/16 needle See Rx Instructions .ROUTE .MEDSUPPLY Qty: 100 2RF Rx Instructions: For DM, E11.9, FOR ONCE DAILY INJECTION, WITH GOAL A1C < 8 (DME) OneTouch Verio test strips Strip See Rx Instructions .ROUTE .MEDSUPPLY Qty: 200 3RF Rx Instructions: Monitor BS BID per CDE; E11.9, to achieve A1C under 7%, T2 DM (DME) lancets [OneTouch Delica Lancets] 33 gauge misc See Rx Instructions .Route Qty: 100 3RF Rx Instructions: As directed metoprolol tartrate 25 mg tablet See Rx Instructions .ROUTE .COMPLEX Qty: 90 3RF Dose Instruction: TAKE 1/2 TABLET BY MOUTH TWICE DAILY Rx Instructions: TAKE 1/2 TABLET BY MOUTH TWICE DAILY levothyroxine 100 mcg tablet 100 mcg PO DAILY Qty: 90 1RF insulin glargine 100 unit/mL (3 mL) insulin pen 10 unit subcut DAILY Qty: 15 1RF Rx Instructions: Start @ 10units and increase per CDE/PCP direction furosemide 20 mg tablet 20 mg PO BID MDD 40mg Qty: 180 3RF Rx Instructions: Re-start @ 2/day multivitamin 1 EACH capsule 1 ea PO DAILY acetaminophen 500 mg tablet 1,000 mg PO Q8H PRN Qty: 90 0RF Rx Instructions: Take two tablets up to every 8 hours as needed for pain docusate sodium [Colace] 100 mg capsule 100 mg PO BID Qty: 30 0RF Patient Comments: patient no longer taking Discharge Instructions Instructions: Hypokalemia (ED), Hypomagnesemia (ED), Pneumonia (ED) Additional Instructions: follow up with your primary care provider next week especially if you aren't feeling better if you feel more ill, have worsening shortness of breath or severe pain return to the emergency department Medical Decision Making 82 yo female with hx of pacemaker, afib, gerd, who comes in with cc of shortness of breath and cough for 2 days. Denies fevers or chills, states yesterday when she was coughing she had anterior chest pain, no pain since. Does also note some mild swelling of her lower extremities. She is stable on arrival, caox4 and speaking clearly. She does have pitting edema bilaterally of her lower distal extremities, no calf tenderness, clear lungs. No concerning findings on bedside pocus of her heart or lungs. Given her age and complaints will proceed with cbc, cmp, ekg/troponin, probnp, fluvid, and cta of the chest. labs show mild low mag and K, repletion ordered, CTA unremarkable other then a small right lower lobe infiltrate. Pt stable with stable vitals, o2 sat on room air is 96% and she is speaking in full sentences. She is caox4 and has decision making capacity. Discussed obs admission vs trial oral antibiotics for pneumonia as an outpatient and she wants to proceed with oral antibiotics and discharge which I feel is reasonable given her reassuring workup and well appearance with stable vitals. She will f/u with her pcp xi and return precautions given. Pt with symptoms over 2 days so do not feel delta troponin indicated. Differential Diagnosis Differential Diagnosis: chf, pneumonia, pe, covid, flu Medical Records Medical records reviewed: Yes I reviewed the patient's medical records. Imaging Data Radiologic Study: Attestation: I personally reviewed and interpreted this imaging study as follows: Imaging: CT Scan Radiologist's impression: right lower lobe infiltrate Lab Data Lab results reviewed: Yes I reviewed the patient's lab results. ECG Data Attestation: I personally reviewed and interpreted this ECG (s) as follows: Prior ECG tracings: available for review Interpretation: sinus rate of 76, pr 219, no stemi HPI General Date/Time Provider Initiated Documentation: 12/31/22 07:51. Limitations to Documentation: no limitations. Information obtained by: patient. History of Present Illness 82 year old F presents to the emergency department with the chief complaint of shortness of breath, described as moderate, Patient started experiencing this day(s) (2) and it has been constant. No relieving factors improve symptom(s), No exacerbating factors reported . Patient notes chest pain and cough; denies fever/chills. Patient did receive the following treatments prior to arrival, none Related Data Home Medications Medication Instructions Recorded Confirmed multivitamin 1 ea PO DAILY 11/05/12 12/31/22 compress.stocking,knee,reg,lrg #1 ea 03/20/21 11/24/22 calcium carb 1,200 mg-mag hydrox 10 ml PO PRN PRN 06/23/21 12/31/22 270 mg-simeth 80 mg/10 mL oral susp (Mylanta Coat-Cool) albuterol sulfate 90 mcg/actuation 2 puff inhalation Q4H PRN PRN 06/24/21 12/31/22 aerosol inhaler (ProAir HFA) shortness of breath or wheezing ##3 blood-glucose meter (OneTouch #1 ea 07/24/21 11/24/22 Verio Meter) lancing device with lancets kit #1 ea 07/24/21 11/24/22 (OneTouch Delica Plus Lancing Device kit) pantoprazole 40 mg tablet,delayed 40 mg PO DAILY 11/04/21 12/31/22 release pen needle, diabetic 31 gauge x #100 ea 04/20/22 11/24/22 3/16 (BD Ultra-Fine Mini Pen Needle) acetaminophen 500 mg tablet 1,000 mg PO Q8H PRN pain #90 tabs 05/26/22 12/31/22 docusate sodium 100 mg capsule 100 mg PO BID #30 caps 05/26/22 11/24/22 (Colace) blood sugar diagnostic (OneTouch #200 ea 07/07/22 11/24/22 Verio test strips) lancets 33 gauge (OneTouch Delica #100 ea 07/12/22 11/24/22 Lancets) metoprolol tartrate 25 mg tablet See Rx Instructions .Route 07/27/22 12/31/22 .COMPLEX #90 tabs levothyroxine 100 mcg tablet 100 mcg PO DAILY #90 tab-caps 09/09/22 12/31/22 fluticasone propionate 110 2 puff inhalation BID #3 09/17/22 12/31/22 mcg/actuation HFA aerosol inhaler inhalations (Flovent HFA) insulin glargine 100 unit/mL (3 10 unit (0.1 mL) subcut DAILY for 10/07/22 12/31/22 mL) subcutaneous pen mgmt of diabetes, E11.9, with A1C goal < 7.5 #15 mL potassium chloride 20 mEq 20 meq PO BID PRN very low K as 10/12/22 11/18/22 tablet,extended release discussed with PCP furosemide 20 mg tablet 20 mg PO BID edema #180 tabs 10/14/22 12/31/22 apixaban 5 mg tablet (Eliquis) 5 mg PO BID #180 tab-caps 11/24/22 12/31/22 levofloxacin 750 mg tablet 750 mg PO DAILY #5 tabs 12/31/22 Previous Rx's Medication Instructions Recorded compress.stocking,knee,reg,lrg #1 ea 03/20/21 albuterol sulfate 90 mcg/actuation 2 puff inhalation Q4H PRN PRN 06/24/21 aerosol inhaler (ProAir HFA) shortness of breath or wheezing ##3 blood-glucose meter (OneTouch #1 ea 07/24/21 Verio Meter) lancing device with lancets kit #1 ea 07/24/21 (Refined Investment TechnologiesTouch Delica Plus Lancing Device kit) pen needle, diabetic 31 gauge x #100 ea 04/20/22 3/ (BD Ultra-Fine Mini Pen Needle) acetaminophen 500 mg tablet 1,000 mg PO Q8H PRN pain #90 tabs 05/26/22 docusate sodium 100 mg capsule 100 mg PO BID #30 caps 05/26/22 (Colace) blood sugar diagnostic (OneTouch #200 ea 07/07/22 Verio test strips) lancets 33 gauge (OneTouch Delica #100 ea 07/12/22 Lancets) metoprolol tartrate 25 mg tablet See Rx Instructions .Route 07/27/22 .COMPLEX #90 tabs levothyroxine 100 mcg tablet 100 mcg PO DAILY #90 tab-caps 09/09/22 fluticasone propionate 110 2 puff inhalation BID #3 09/17/22 mcg/actuation HFA aerosol inhaler inhalations (Flovent HFA) insulin glargine 100 unit/mL (3 10 unit (0.1 mL) subcut DAILY for 10/07/22 mL) subcutaneous pen mgmt of diabetes, E11.9, with A1C goal < 7.5 #15 mL furosemide 20 mg tablet 20 mg PO BID edema #180 tabs 10/14/22 apixaban 5 mg tablet (Eliquis) 5 mg PO BID #180 tab-caps 11/24/22 levofloxacin 750 mg tablet 750 mg PO DAILY #5 tabs 12/31/22 Allergies Allergy/AdvReac Type Severity Reaction Status Date / Time ranitidine Allergy Severe WHEEZING Verified 12/31/22 07:57 cefadroxil Allergy Mild Verified 12/31/22 07:57 empagliflozin AdvReac Severe UTI Verified 12/31/22 08:01 [From Jardiance] metformin AdvReac Severe Diarrhea Verified 12/31/22 07:57 ciprofloxacin AdvReac Intermediate WEAKNESS Verified 12/31/22 07:57 pneumococcal 13-valent AdvReac Intermediate temp and Verified 12/31/22 07:57 conjugate to body aches [From Prevnar 13 (PF)] sucralfate AdvReac Intermediate N/V Verified 12/31/22 07:57 General Stated Complaint: SOB/SuddenOnset DEXTER: 3 Review of Systems All systems reviewed & are unremarkable except as noted in HPI and below Constitutional Constitutional: Denies chills, Denies fever(s) and Denies weakness Cardiovascular Cardiovascular: Reports chest pain and Reports dyspnea Respiratory Respiratory: Reports cough and Reports dyspnea Gastrointestinal Gastrointestinal: Denies abdominal pain, Denies nausea and Denies vomiting Integumentary/Breasts Skin/Breast: Denies rash Neurologic Neurologic: Denies weakness PFSH All Active Problems (Updated 12/31/22 @ 09:58 by Kg Dalal MD) Shortness of breath (Acute) Hypokalemia (Acute) CAP (community acquired pneumonia) (Acute) Hypomagnesemia (Acute) Lipedema of lower extremity (Acute) nodular, symm, tender inner upper calves Nail dystrophy (Acute) Hypokalemia (Acute) Critically low, High risk medication use (Acute) Amiodarone since July, evaluating for tox (06/20/22 d/w [facility]) 2' SOB w/NEG CTA & no improvement post diuresis (furosemide 40) SOB (shortness of breath) (Acute) Diabetes mellitus due to underlying condition, uncontrolled, with hyperglycemia (Acute) A1C rise due to inactivity 2' back/knee pain & steroid use.. winter 2021 Insulin dose changed (Acute) Elevated serum free T4 level (Acute) high TSH, High T4, 03/2022 ... Hx low TSH and high T4 (08/2021) Elevated TSH (Acute) Lymphedema (Acute) nonpitting edema -- seems lymphedema -- appreciate pt eval Atrial tachycardia (Acute) per Cardiology, [facility] [place] .. Admitted post xfer from [facility] ED (08/08/21). EF 50%. Amiodarone started; Flecainide stopped. Amiodarone stopped 2022 concern for pulm tox Atrial fibrillation (Acute 07/06/11) normal echo and cath 2008; flecanide Rx; apixiban; echo 09/2013 EF 60%.. Atrioventricular block (Acute 07/07/12) pacemaker placement 12/04/2013; 5 sec asystoles last interrogation, 03/2017. Pacemaker (Acute 09/16/17) Sees DARNELL Tejada ([facility]). Dual lead Medtronic pacemaker Adapta .. Placed 2013, Dr. Edin Robles. 99Medtronic dual lead pacemaker implanted 12/04/2013 .. Adapta [id number] .. RA Medtronic [id number], 11/2013.. RV [id number] 12/04/2013)) Tachycardia (Acute) Type 2 diabetes mellitus (Acute) A1C jump 2' limited ambulation & steroid use. [ ] Insulin due to intolerance of PO Rx, ik, 03/2022.. Recent A1C increase, from pre-diabetes to DM this past year.. Edema (Acute) LE edema , R>L .. notable, possibly 2' Jardiance intolerance, but possible lymphedema (?) Medication intolerance (Acute) Unable to tolerate Jardiance (candidiasis!), Metformin. Dysphagia, unspecified (Acute 07/07/12) EGD KD: mild esophagitis 10/[address] Ragsdale 09/23/[address] Duncan, [facility], [place], [place]. Impression: Gerd Dysphagia. Rule out secondary to esophageal ulcer,dysmotility, or from perhaps a failing Singh. recommeded: Upper GI Gerd protocaol discussed w/ pt. panel 2,B12 If pt continues sx, may want to repeat upper endoscopy. Plans to see her back in follwup. Gastroesophageal reflux disease (Acute 07/07/12) Managed with PPI for years, worsening x 2-3 months. Now associated with LUQ tenderness, 05/26/17. []H.pylori [] U/S LUQ ik IMPROVED with weight loss, 06/02.19, ik EGD rescheduled with Dr. Escobar (2' Margaret not yet taking appts @ [facility]), 05/26/17 .. Consulted, EGD sched for 06/29/17. note: s/p Singh, hernia repair, and esoph dilation (2013) 10/29/21 GI visit with f/u in 6w Atrophic gastritis without mention of hemorrhage (Acute 07/07/12) History of hiatal hernia (Acute) Reactive airway disease (Chronic) Medical History (Updated 12/31/22 @ 09:58 by Kg Dalal MD) Arthritis of left knee s/p L TKA 05/26/22 Arthropathy of left knee Asthma (01/18/13) possible asthma; PFTs normal 04/27/2012.07/2013 Cardiomyopathy Due to atrial tachycardia.. xferred to [facility] [place], PM reprogrammed. Amiodarone replacing flecainide. Low-dose diuretics (see 08/11/21 [facility] Cardio note).. 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 A1C goal 7.5 ... 7.1 today, 08/07/20. 6.8/6.9 in 11/2016. A1C 6.5 post weight loss and focused effort on reducing carbs/sweets. 06/02/18, ik A1C remains @ 6.5 08/2018, good job! 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 [facility] q6m x1 year, then annually. --[facility] [place] 06/2016 Shakira Diaz MD Post-radiation association with new abd pain (?), ik, 05/26/17 Esophagitis determined by biopsy Essential hypertension (01/18/13) FRS 13% .. Well controlled, 116/70 06/02/18, ik Exertional dyspnea (01/28/15) Failed fundoplication Family hx-breast malignancy (11/13/12) SISTER IN 60s High risk medications (not anticoagulants) long-term use Flecainide - started by Dr. Douglass High risk medications (not anticoagulants) long-term use Amiodarone started, 07/2021 (after years on flecainide).. [ ] Ophtho, EP, Echo, PFTs .. short-term lasix. History of postmenopausal bleeding Hot flashes Hot Flashes x 6 mos, 06/13/19. Hyperlipidemia (03/15/13) Hypomagnesemia Noted @ ED, 02/2021 .. replenished. Monitor [ ] Hypothyroidism (01/02/13) TSH 2.43 (05/2017) vs. >9 (02/2017). [facility] Impaired glucose tolerance (03/10/12) Left knee pain DEPO MEDROL 01/14/22 Arthrocentesis @ [facility] [place] (during hosp stay for atrial tach), NEG.. referred to local ortho ([facility]). Leg edema Leg weakness With standing .. Hx lumbar stenosis .. Hx spinal injection (?) Lesion of face or BCCA left lateral canthus 09/14/[address] Dillon 09/22/21 sutures removed Macular pucker Multinodular goiter (12/19/15) Muscle spasm of left shoulder area Trapezius MM Spasm .. Neurogenic pain of right lower extremity (09/19/15) Osteoarth NOS-unspec (07/06/11) Pelvic pain (02/07/13) Piriformis syndrome of right side Postnasal drip (01/09/15) Primary osteoarthritis of right knee (01/10/17) s/p RT TKR Fall 2017 Pyrosis Right lumbar radiculopathy Sensorineural hearing loss Sensorineural hearing loss of both ears Sensorineural hearing loss, bilateral (12/28/13) Spinal stenosis of lumbar region Symptomatic bradycardia Thyroid nodule (01/28/15) 01/01/15 US 4mm nodule isthmus 05/15/15 US 4.5 nodule isthmus, ?7x5 nodule right Trochanteric bursitis, right hip (05/19/16) Urge incontinence Vulvovaginal candidiasis 2' Jardiance .. trial monostat or diflucan . STOP Jardiance if janae returns. Surgical History Cardiac Cath, 2008 Cholecystectomy Colonoscopy - IV Sedation (03/17/16) EGD - MAC (06/29/17) Extraction of cataract B/L Hernia, hiatal (banding) History of Surgical Procedure a. Cholecystectomy. b. Bilateral cataract surgery. c. Hiatal hernia repair 2008. d. Esophagus stretching 2013 - Dr. Ragsdale. [place]. Pacemaker 12/04/2013 History of total knee arthroplasty (05/26/22) History of total left knee replacement (TKR) (05/26/22) Hyseterectomy, Total Laparoscopic w/ BSO (07/01/16) +Endometrial cancer Pacemaker (12/04/13) Replacement of total knee joint (12/03/16) R knee Dr Del Cid sentinal lymph node dissection (07/01/16) NEG for mets from endometrium Status post right knee replacement Dr. Del Cid, Ortho. She is happy with knee, able to step down from sidewalk w/o fear per 03/02/18 appt discussion. COntinues to do well; seeing ortho for possible neuropathic pain (outer rt calf). upper GI Series (10/05/17) for sx of epigastric dysphagia,GERD. Done by Dr. Duncan. Impression: Moderate sized Hiatal Hernia. Marked gastroesophageal reflux. Family History Mother , old age at age 98. No problems noted. Father , Heart disease at age 64. Heart disease PR Sister , Colon Ca Personal history of malignant neoplasm Sister , Heart problems at age 72. Personal history of malignant neoplasm Breast cancer, dx'ed in her 60s Heart disease Sister Hypertensive disorder, systemic arterial Diabetes Sister Diabetes Sister Hypertensive disorder, systemic arterial Brother , Parkinson's at age 75. Personal history of malignant neoplasm Brother Parkinson's disease Brother , Heart condition at age 62. 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 Pets and animals: No Current gender identity: female What is your relationship status?: Panel score (0-1 are the most socially isolated patients): 0 Seatbelt use: always Working smoke detector in home: Yes Fire extinguisher in home: Yes Carbon monox detector in home: Yes Firearms in home: No Do you feel safe at home: Yes Do you feel safe in your relationship?: Yes Exam Const General: no acute distress Orientation: alert HENMT Head: normal to inspection Ears: external ears normal General nose exam: external nose normal Mouth: moist mucous membranes Eyes General: appearance normal, both eyes and all related structures Neck Neck: normal visual inspection Resp Effort & Inspection: normal respiratory effort and able to speak in complete sentences Auscultation: clear to auscultation bilaterally Cardio Jugular venous pressure: no JVD Rate: regular rate GI Palpation: soft and nontender Skin General skin exam: no rashes or lesions noted Neuro General: patient alert and patient oriented x3 Extrem General: edema Psych Mental Status: mental status grossly normal Course Vital Signs Vital signs: Vital Signs Temperature 37.2 C 12/31/22 07:52 Pulse 69 12/31/22 07:52 Respiratory Rate 22 12/31/22 07:52 Blood Pressure 150/71 H 12/31/22 07:52 Pulse Oximetry 98 12/31/22 07:52 Temperature 37.2 C 12/31/22 07:52 Temperature Source Skin 12/31/22 07:52 Pulse 69 12/31/22 07:52 Respiratory Rate 22 12/31/22 07:52 Blood Pressure 150/71 H 12/31/22 07:52 Blood Pressure Position Supine 12/31/22 07:52 Pulse Oximetry 98 12/31/22 07:52 Oxygen Delivery Method Room Air 12/31/22 07:52 Oxygen Flow Rate 0 12/31/22 07:52 Pain Level 0 12/31/22 07:52 Lab/Test Results Lab/Test Results: Laboratory Tests Range/Units 12/31/22 07:52 COVID-19 Source Cancelled SARS-CoV-2 (PCR) Cancelled POCUS Exam (ED) Limited Cardiac Exam DATE OF EXAM: 12/31/22 TIME OF EXAM: 08:16 PROVIDER THAT PERFORMED THE STUDY: Kg Dalal IS THIS A REPEAT EXAM DURING THIS ENCOUNTER: no REASON FOR EXAM: Dyspnea VISUALIZED STRUCTURES: Four Chambers VIEW OBTAINED: Parasternal long-axis and Parasternal short-axis PERTINENT FINDINGS/IMPRESSION: No apparent abnormalities; No LV dysfunction Exam complete Limited Thoracic Lung Exam DATE OF EXAM: 12/31/22 TIME OF EXAM: 08:22 PROVIDER THAT PERFORMED THE STUDY: Kg Dalal IS THIS A REPEAT EXAM DURING THIS ENCOUNTER: No REASON FOR EXAM: Shortness ofBreath VISUALIZED STRUCTURES: right anterior and left anterior PERTINENT FINDINGS/IMPRESSION: No apparent abnormalities Exam complete
[2022-12-31 08:14] LABS: BE (Venous) 8 mmol/L (-2-3); HCO3 (Venous) 32 mmol/L (23-28); O2 Sat (Venous) 75 %; TCO2 (Venous) 29 mmol/L (24-29); pCO2 (Venous) 47 mmHg (41-51); pH (Venous) 7.45 (7.31-7.41); pO2 (Venous) 39 mmHg
[2022-12-31 08:16] LABS: Abs Immature Grans 0.03 10^3/uL (0.0-0.06); Absolute Basophil Count 0.03 10^3/uL (0.0-0.2); Absolute Eosinophil Count 0.09 10^3/uL (0.0-0.7); Absolute Monocyte Count 0.59 10^3/uL (0.1-0.8); Absolute Neutrophil Count 4.65 10^3/uL (1.2-6.7); Basophils % 0.5; Eosinophils % 1.4; HCT 37.3 % (36.0-46.0); HGB 12.6 g/dL (11.2-15.7); Immature Grans % 0.5; Lymphocytes % 18.2; MCH 32.3 pg (27.0-33.0); MCHC 33.8 % (32.0-36.0); MCV 96 fL (80-95); MPV 10.6 fL (8.0-11.0); Neutrophils % 70.4; Platelet Count 201 10^3/uL (130-400); RDW 13.1 % (11.7-14.6); RDW-SD 45.9 fL; WBC 6.59 10^3/uL (4.4-10.8)
[2022-12-31 08:29] LABS: PTT Activated 26.3 sec (21.5-31.9); Prothrombin Time 10.5 sec (9.3-11.0)
[2022-12-31 08:46] LABS: ALT 17 U/L (14-59); AST 17 U/L (15-37); Albumin 3.4 g/dL (3.4-5.0); Alkaline Phosphatase 59 U/L (46-116); Anion Gap 5.9 mmol/L (3-11); BUN 9 mg/dL (7-18); Bilirubin, Total 0.7 mg/dL (0.2-1.0); CO2 33.1 mmol/L (21.0-32.0); CREATININE 0.7 mg/dL (0.55-1.02); Calcium 8.7 mg/dL (8.5-10.1); Chloride 102 mmol/L (98-107); Estimated GFR 85.76 (mL/min/1.73m2); Glucose 151 mg/dL (74-106); Magnesium 1.6 mg/dL (1.8-2.4); NT-proBNP 143 pg/mL (<300); Sodium 141 mmol/L (136-145); TSH (W/Ref FT4) 0.77 uIU/mL (0.36-3.74); Total Protein 6.9 g/dL (6.4-8.2); Troponin I < 50 ng/L (<or=60)
[2022-12-31] MEDS: Omnipaque 350 MG/ML 100 ML BTL IJ (08:55)
[2022-12-31] MEDS: Normal Saline - Diluent 50 ML VIAL IJ (08:56)
[2022-12-31 09:00] LABS: COVID-19 PCR Negative (Negative); Influenza A PCR Negative (Negative); Influenza B PCR Negative (Negative); RSV PCR Negative (Negative); Source Nasopharynx
[2022-12-31] MEDS: Potassium Chloride 20 MEQ TABCR 40 MEQ PO (09:24)
[2022-12-31] MEDS: MAGNESIUM SULFATE 1 GM/100 ML BAG IVPB (09:25)
[2022-12-31] MEDS: levoFLOXacin 500 MG, levoFLOXacin 250 MG 750 MG PO (09:58)
== END 2022-12-31 10:40 | disposition home or self-care (01) ==
PROVIDERS: Emergency Provider Emergency Medicine; PCP Student in an Organized Health Care Education/Training Program
DX: J18.9 Pneumonia, unspecified organism (principal); E87.6 Hypokalemia; E83.42 Hypomagnesemia; R94.31 Abnormal electrocardiogram [ECG] [EKG]; I48.91 Unspecified atrial fibrillation; Z79.01 Long term (current) use of anticoagulants; Z79.4 Long term (current) use of insulin; Z95.0 Presence of cardiac pacemaker
CPT/HCPCS: 36415; 71275; 76604; 80053; 82805; 87635; 87637; 93005; 93308; 96365; 99285; 83735; 83880; 84443; 84484; 85025; 85610; 85730; 93010; 99284; J3475; J3490

== ENCOUNTER → 2023-01-13 11:24 | Outpatient (BNVA) | payer MEDICARE, SELFPAY | PROVIDERS: PCP Student in an Organized Health Care Education/Training Program; Visit Provider Internal Medicine Cardiovascular Disease | DX: I48.0 Paroxysmal atrial fibrillation (principal); E11.9 Type 2 diabetes mellitus without complications; Z95.0 Presence of cardiac pacemaker | CPT/HCPCS: 99213 ==

== ENCOUNTER 2023-01-17 02:11 | Outpatient (CLI) | payer MEDICARE, SELFPAY ==
[2023-01-17 10:20] LABS: HGB 12.7 g/dL (11.2-15.7)
[2023-01-17 11:04] LABS: Anion Gap 6.7 mmol/L (3-11); BUN 9 mg/dL (7-18); CO2 30.3 mmol/L (21.0-32.0); CREATININE 0.7 mg/dL (0.55-1.02); Calcium 9.1 mg/dL (8.5-10.1); Chloride 104 mmol/L (98-107); Estimated GFR 85.23 (mL/min/1.73m2); Glucose 106 mg/dL (74-106); Magnesium 1.8 mg/dL (1.8-2.4); Potassium 3.7 mmol/L (3.5-5.1); Sodium 141 mmol/L (136-145)
[2023-01-17 11:10] LABS: Hemoglobin A1C 6.6 % (<5.7)
== END 2023-01-17 02:12 | disposition home or self-care (01) ==
LOC: LBO 02:11
PROVIDERS: PCP Student in an Organized Health Care Education/Training Program; Referring Provider Student in an Organized Health Care Education/Training Program; Visit Provider Student in an Organized Health Care Education/Training Program
DX: I10 Essential (primary) hypertension (principal); R73.09 Other abnormal glucose
CPT/HCPCS: 36415; 80048; 83036; 83735; 85018

== ENCOUNTER → 2023-02-23 09:56 | Outpatient (BNVA) | payer MEDICARE, SELFPAY | PROVIDERS: PCP Student in an Organized Health Care Education/Training Program; Referring Provider Student in an Organized Health Care Education/Training Program; Visit Provider Podiatrist | DX: B35.1 Tinea unguium (principal); L60.3 Nail dystrophy; I73.89 Other specified peripheral vascular diseases; E11.65 Type 2 diabetes mellitus with hyperglycemia; R60.0 Localized edema; I87.2 Venous insufficiency (chronic) (peripheral); L60.0 Ingrowing nail | CPT/HCPCS: 11721 ==

== ENCOUNTER 2023-03-01 01:11 | Outpatient (CLI) | payer MEDICARE, SELFPAY ==
[2023-03-01 11:08] LABS: Anion Gap 8.4 mmol/L (3-11); BUN 11 mg/dL (7-18); CO2 29.6 mmol/L (21.0-32.0); CREATININE 0.7 mg/dL (0.55-1.02); Calcium 9.3 mg/dL (8.5-10.1); Chloride 103 mmol/L (98-107); Estimated GFR 85.23 (mL/min/1.73m2); Glucose 135 mg/dL (74-106); Potassium 3.6 mmol/L (3.5-5.1); Sodium 141 mmol/L (136-145)
== END 2023-03-01 01:12 | disposition home or self-care (01) ==
LOC: LBO 01:11
PROVIDERS: Absent Provider Student in an Organized Health Care Education/Training Program; PCP Student in an Organized Health Care Education/Training Program; Visit Provider Student in an Organized Health Care Education/Training Program
DX: E87.8 Other disorders of electrolyte and fluid balance, not elsewhere classified (principal)
CPT/HCPCS: 36415; 80048

== ENCOUNTER 2023-03-30 10:46 | Outpatient (CLI) | payer MEDICARE, SELFPAY ==
--- NOTE | 2023-03-30 06:00 | DI.RAD_ITS ---
Exam(s) XR PAIN CLINIC SACRIOILIAC 2V EXAM: XR PAIN CLINIC SACRIOILIAC 2V CLINICAL HISTORY: Dx: Sacroiliac Joint Dysfunction. TECHNIQUE: Fluoroscopy was provided for the referring physician for guidance with performing pain cl inic injection procedure. COMPARISON: No exams were available for comparison FINDINGS: Please see procedure note for details. Fluoro time: 16.1 seconds RADIATION DOSE DELIVERED: Kar=3.92 mGy
[2023-03-30 11:14] VITALS: BP 142/77; PULSE 77; RESP 20; TEMP 36.7; O2SAT 98
[2023-03-30 11:58] VITALS: BP 145/84; PULSE 66; RESP 14; O2SAT 100
[2023-03-30] MEDS: methylPREDNISolone ACETATE 80 MG/ML VIAL IJ (12:01)
[2023-03-30] MEDS: Omnipaque 240 MG/ML 50 ML BTL IJ (12:01)
--- NOTE | 2023-04-05 15:12 | PDOC.PAIN_ITS ---
Date of service: 03/30/23 Time of Service: 15:00 Pain Managment Procedure Note Procedure Note Procedure Note: PROCEDURE NOTE RIGHT INTRA-ARTICULAR SACROILIAC JOINT INJECTION Date of Service: March 30, 2023 Patient: Elaina Huddleston Provider: Nirav Kilpatrick DO, MPH COMMENTS: I previously evaluated the patient in the office and their symptoms in relation to the sacroiliac joint pain have remained the same. Pre-operative diagnosis: Sacroiliac joint dysfunction Post-operative diagnosis: Same Pre-procedure pain: VAS= 7/10 Elaina Huddleston has been referred to our [facility] for a Right intra-articular Sacroiliac joint injection. Elaina was interviewed and the medical record reviewed. There were no medical, pharmacologic, radiographic or other structural contraindications to attempting a fluoroscopically-guided, contrast-enhanced, intra-articular Sacroiliac joint injection. The risks, benefits, and potential side effects of this procedure were reviewed with the patient. Questions and concerns were addressed. After it was clear that Elaina was fully informed about the procedure, the printed consent form was signed by the patient and myself. Elaina was placed in the prone position on the fluoroscopy table and an automated blood pressure cuff, 3 lead EKG, and pulse oximeter were applied. The skin entry point for approaching the Right sacroiliac joint was identified under the most advantageous fluoroscopic view and marked. Following thorough Chlorhexadine preparation of the skin and draping with sterile surgical drapes, 2 mls of 1% lidocaine was infiltrated into the skin at the entry point and the surrounding subcutaneous tissues. Next, a 3.5 22G spinal needle was placed under fluoroscopic guidance into the Right sacroiliac joint. Intra-articular placement was confirmed by a clear arthrogram resulting from the injection of 0.25ml of Omnipaque-240. Next, 1 ml of Depo- Medrol 80 mg/ml was injected intra- articularly with an initial reproduction of a significant component of the usual pain. This was followed with 1 ml of 1% Lidocaine. The needle was then removed without difficulty. (49 ml of Omnipaque-240 was wasted). Elaina's vital signs were stable throughout the procedure and were as recorded in nursing records. Follow up plans and appointments were discussed with Elaina. Post procedure instructions were given as documented in nursing records. Having met discharge criteria, Elaina was [facility] from the [facility]. COMMENTS: Post-procedure pain: VAS= 0/10. If the patient receives at least 50% improvement in pain and/or function for at least 3 months, this procedure can be repeated if needed. I personally performed this entire procedure. NIRAV KILPATRICK DO, MPH ABPMR-subspecialty board certification in Pain Medicine [facility]
== END 2023-03-30 10:47 | disposition home or self-care (01) ==
LOC: PC 10:46
PROVIDERS: PCP Student in an Organized Health Care Education/Training Program; Visit Provider Preventive Medicine Occupational Medicine
DX: M54.50 Low back pain, unspecified (principal); M46.1 Sacroiliitis, not elsewhere classified
CPT/HCPCS: 00123; 27096; 72200; J1040; Q9967

== ENCOUNTER 2023-04-07 07:27 | Inpatient (IN) | payer MEDICARE, SELFPAY ==
[2023-04-07] VITALS (135 sets, daily range): BP systolic 60–184; BP diastolic 33–119; PULSE 68–143; RESP 9–35; TEMP 36.4–38.4; O2SAT 2–100
--- OUTSIDE RECORDS SUMMARY | 2023-04-07 09:12 | XMS_ITS | Continuity of Care Document ---
Author Name Unknown Organization [facility] Ambulatory Clinics Address [address] [place] [address] Care Team Providers Care Exercise Equipment Specialist Name Role Phone Unavailable, Physician Primary Care Physician Un available Encounter [facility] NBR [id number] Date(s): 01/25/23 - 01/25/23 [facility] [address], [place] [address] Encounter Diagnosis GERD - Gastro-esophageal reflux disease(Discharge Diagnosis) - 01/25/23 Family history of cancer of colon(Discharge Diagnosis) - 01/25/23 H/O adenomatous polyp of colon(Discharge Diagnosis) - 01/25/23 Discharge Disposition: Home or Self Care Attending Physician: Jake Watts MD Referring Physician: Jake Watts MD Allergies, Adverse Reactions, Alerts Substance Reaction Severity Status ciprofloxacin Weakness Unknown Active cefadroxil Unknown Active sucralfate Weakness Unknown Active pneumococcal 13-valent conjugate vaccine Unknown Active raNITIdine Wheezing Unknown Active Medications amiodarone 200 mg oral tablet 200 mg = 1 tab, Oral, Daily, # 90 tab, 0 Refill(s) Start Date: 12/27/22 Status: Ordered BD UF MINI PEN NEEDLE [id number] BD UF MINI PEN NEEDLE [id number], TEST ONCE DAILY Start Date: 12/27/22 Status: Ordered celecoxib 200 mg oral capsule 200 mg = 1 cap, Oral, BID, # 60 cap, 0 Refill(s) Start Date: 12/27/22 Status: Ordered Eliquis 5 mg oral tablet 5 mg = 1 tab, Oral, BID, # 60 tab, 0 Refill(s) Start Date: 12/27/22 Status: Ordered Flovent HFA 110 mcg/inh inhalation aerosol 2 puffs, Inhale, BID, # 12 g, 0 Refill(s) Start Date: 12/27/22 Status: Ordered Flovent HFA 110 mcg/inh inhalation aerosol 2 puffs, Inhale, BID, # 12 g, 0 Refill(s) Start Date: 12/27/22 Status: Ordered furosemide 20 mg oral tablet 20 mg = 1 tab, Oral, Daily, # 90 tab, 0 Refill(s) Start Date: 12/27/22 Status: Ordered gabapentin 100 mg oral capsule 100 mg = 1 cap, Oral, TID, # 90 cap, 0 Refill(s) Start Date: 12/27/22 Status: Ordered Lantus Solostar Pen 100 units/mL subcutaneous solution 10 units =, Subcutaneous, Daily, # 3 mL, 0 Refill(s) Start Date: 12/27/22 Status: Ordered levothyroxine 100 mcg (0.1 mg) oral tablet 100 mcg = 1 tab, Oral, Daily, # 90 tab, 0 Refill(s) Start Date: 12/27/22 Status: Ordered MethylPREDNISolone Dose Pack 4 mg oral tablet 1 packets, Oral, Once, as directed on package labeling, # 21 tab, 0 Refill(s) Start Date: 12/27/22 Status: Ordered Metoprolol Tartrate 25 mg oral tablet 25 mg = 1 tab, Oral, BID, # 180 tab, 0 Refill(s) Start Date: 12/27/22 Status: Ordered ONETOUCH DELICA PLUS 33G LANCT ONETOUCH DELICA PLUS 33G LANCT, 0 Refill(s) Start Date: 12/27/22 Status: Ordered ONETOUCH VERIO TEST STRIP ONETOUCH VERIO TEST STRIP, MONITOR BLOOD SUGAR TWO TIMES A DAY Start Date: 12/27/22 Status: Ordered pantoprazole 40 mg oral delayed release tablet 1 tab, Oral, BID, # 60 tab, 1 Refill(s), Pharmacy: [id number] Start Date: 12/06/22 Stop Date: 01/05/23 Status: Ordered Potassium Chloride (Eqv-K-Tab) 20 mEq oral tablet, extended release TAKE ONE TABLET BY MOUTH TWICE A DAY FOR 5 DAYS Start Date: 12/27/22 Status: Ordered Restasis 0.05% ophthalmic emulsion 1 drops, Eye-Both, BID, # 30 EA, 0 Refill(s) Start Date: 12/27/22 Status: Ordered traMADol 50 mg oral tablet 50 mg = 1 tab, Oral, every 4 hr, PRN as needed for pain, 0 Refill(s) Start Date: 12/27/22 Status: Ordered Tylenol 8 Hour 650 mg oral tablet, extended release 1,300 mg = 2 tab, Oral, every 8 hr, PRN as needed for fever, # 24 tab, 0 Refill(s) Start Date: 01/25/23 Status: Ordered Problem List Condition Confirmation Course Effective Dates Status H ealth Status Informant Allergic rhinitis Confirmed Active Asthma Confirmed Active Atrial fibrillation Confirmed Active Atrophic gastritis Confirmed Active Bilateral hearing loss Confirmed Active Endometrial cancer Confirmed Active Cardiac pacemaker Confirmed Active Chronic gastritis Confirmed Active Degenerative joint disease Confirmed Active DM - Diabetes mellitus type 2 Confirmed Active Dysphagia Confirmed Active Family history of cancer of colon 1 Confirmed Active Failed fundoplication Confirmed Active Gastritis Confirmed Active GERD - Gastro-esophageal reflux disease Confirmed Active Hiatal hernia Confirmed Active H/O adenomatous polyp of colon Confirmed Active Hyperlipidemia Confirmed Active Hypertension Confirmed Active Lumbar spinal stenosis Confirmed Active Obesity Confirmed Active Piriformis syndrome Confirmed Active Pyrosis Confirmed Active Symptomatic sinus bradycardia Confirmed Active Thyroid disease Confirmed Active Trochanteric bursitis Confirmed Active Urge incontinence of urine Confirmed Active Weakness of leg Confirmed Active 1pt sister Procedures Procedure Date Related Diagnosis Body Site Status EGD - Esophagogastroduodenoscopy 06/02/21 Completed EGD - Esophagogastroduodenoscopy 06/28/17 Completed Knee replacement 12/02/16 Complete d Sentinal lymph node dissection 06/30/16 Completed Colonoscopy 03/16/16 Completed Implantation of cardiac pacemaker 1 12/03/13 Completed lap hiatal hernia 02/26/09 Complet ed Angioplasty Completed Cataract surgery Complete d Cholecystectomy Completed Dilation and curettage 2 Completed Esophageal Stretching 3 C ompleted [facility] [address] Vital Signs Most recent to oldest [Reference Range]: 1 Temperature Temporal Artery [36-38 Deg C ] 36.2 Deg C (01/25/23 1:28 PM) Peripheral Pulse Rate [60-100 bpm] 72 bp m (01/25/23 1:28 PM) Blood Pressure [90-140/60-90 mmHg] 110/7 8mmHg (01/25/23 1:28 PM) Weight 74.84 kg (01/25/23 1:28 PM) Weight Measured (lbs) 164.994 lb (01/25/23 1:28 PM) [place] Body Weight Calculated 47.854 kg (01/25/23 1:28 PM) Height 155 cm (01/25/23 1:28 PM) Height/Length Measured (inches) 61.02 in ch (01/25/23 1:28 PM) BSA Measured 1.8 m2 (01/25/23 1:28 PM) Body Mass Index 31.15 kg/m2 (01/25/23 1:28 PM) Social History Social History Type Response Tobacco Never tobacco user T obacco Use:. Sex Physician Outpatient Note * Jake Watts MD: PERFORM Event Display: Office Clinic Note Physician Authored Date: [id number] WEOR BENJAMIN :1940 Age:83 years Sex:Female Visit Date:01/25/2023 Primary Care Physician: Unavailable, Physician Chief Complaint 1 year follow up History of Present Illness 83-year-old female??seen in follow-up??for GERD,??on PPI twice daily??for slipped fundoplication??with 5 cm hiatal hernia. ??Her last EGD??was on 06/03/2021 which showed a 5 cm hiatal hernia??without si gnificant??histologic??abnormality.?? Her last colonoscopy was in 2016 which showed a sessile serrated adenoma.?? Sister had colon cancer in her 70s.?? Patient is inquiring whether or not??she shouldhave a colonoscopy.?? The patient is status post??pacemaker,??she is on amiodarone,??Eliquis??but has Performance status.?? She denies heartburn, regurgitation, dysphagia??or change in bowel habits.?? Despite the large hiatal hernia she has infrequent episodes of??substernal/epigastric discomfort??and cannot recall her last episode. ??She has been using laxatives infrequently??essentially all of her life. Physical Exam Vitals & Measurements T:??36.2?C ??(Temporal Artery)?? HR:??72??(Peripheral)?? BP:??110/78?? SpO2:??99%?? HT:??155??cm?? WT:??74.84??kg?? BMI:??31.15?? BSA:??1.8?? Well-developed well-nourished white female no acute distress She is alert and oriented,??walks with a cane. Lungs: Clear auscultation bilaterally Heart: Regular rhythm S1-S2 Abdomen:??Normoactive bowel sounds, soft, nontender, no masses organomegaly Assessment/Plan 1.??GERD - Gastro-esophageal reflux disease??K21.9 Symptoms are well controlled on??PPI which she takes twice daily 30 minutes before meal.?? Despite slipped fundoplication large hiatal hernia she is doing well. 2.??Family history of cancer of colon??Z80.0 We discussed the fact that??she has a first-degree relative with colorectal cancer??and??per??[place] [employer] recommendations??this would be considered??a risk factor??for colorectal cancer.?? However??we also discussed that??other GI societies??did not consider??late onset colorectal cancer??to be a significant increased risk??for??colorectal cancer.?? Therefore,??it really is up to patient preference??as to whether or not she would like to proceed with colonoscopy.?? She will think about this??and let us know her decision.?? She has performance status.?? She stated that??if she werefound to have??colon cancer??on colonoscopy??she would agree to??surgical resection??if cure was pos sible.?? Although no formal follow-up was scheduled, we will be happy to see her back as needed. 3.??H/O adenomatous polyp of colon??Z86.010 Problem List/Past Medical History Ongoing Allergic rhinitis Asthma Atrial fibrillation Atrophic gastritis Bilateral hearing loss Cardiac pacemaker Chronic gastritis Degenerative joint disease DM - Diabetes mellitus type 2 Dysphagia Endometrial cancer Failed fundoplication Family history of cancer of colon Gastritis GERD - Gastro-esophageal reflux disease H/O adenomatous polyp of colon Hiatal hernia Hyperlipidemia Hypertension Lumbar spinal stenosis Obesity Piriformis syndrome Pyrosis Symptomatic sinus bradycardia Thyroid disease Trochanteric bursitis Urge incontinence of urine Weakness of leg Historical No qualifying data Procedure/Surgical History ???EGD - Esophagogastroduodenoscopy (06/03/2021)???EGD - Esophagogastroduodenoscopy (06/29/2017)???Knee replacement (12/03/2016)???Sentinal lymph node dissection (07/01/2016)???Colonoscopy (03/17/2016)???Implantation of cardiac pacemaker (12/04/2013)???lap hiatal hernia (02/27/2009)???Angioplasty???Cataract surgery???Cholecystectomy???Dilation and curettage???Esophageal Stretching Medications amiodarone 200 mg oral tablet, 200 mg= 1 tab, Oral, Daily BD UF MINI PEN NEEDLE [id number] celecoxib 200 mg oral capsule, 200 mg= 1 cap, Oral, BID Eliquis 5 mg oral tablet, 5 mg= 1 tab, Oral, BID Flovent HFA 110 mcg/inh inhalation aerosol, 2 puffs, Inhale, BID Flovent HFA 110 mcg/inh inhalation aerosol, 2 puffs, Inhale, BID furosemide 20 mg oral tablet, 20 mg= 1 tab, Oral, Daily gabapentin 100 mg oral capsule, 100 mg= 1 cap, Oral, TID Lantus Solostar Pen 100 units/mL subcutaneous solution, 10 units, Subcutaneous, Daily levothyroxine 100 mcg (0.1 mg) oral tablet, 100 mcg= 1 tab, Oral, Daily MethylPREDNISolone Dose Pack 4 mg oral tablet, 1 packets, Oral, Once Metoprolol Tartrate 25 mg oral tablet, 25 mg= 1 tab, Oral, BID ONETOUCH DELICA PLUS 33G LANCT ONETOUCH VERIO TEST STRIP pantoprazole 40 mg oral delayed release tablet, 1 tab, Oral, BID Potassium Chloride (Eqv-K-Tab) 20 mEq oral tablet, extended release Restasis 0.05% ophthalmic emulsion, 1 drops, Eye-Both, BID traMADol 50 mg oral tablet, 50 mg= 1 tab, Oral, every 4 hr, PRN Tylenol 8 Hour 650 mg oral tablet, extended release, 1300 mg= 2 tab, Oral, every 8 hr, PRN Allergies cefadroxil ciprofloxacin??(Weakness) pneumococcal 13-valent conjugate vaccine raNITIdine??(Wheezing) sucralfate??(Weakness) Social History Alcohol Never Electronic Cigarette/Vaping Electronic Cigarette Use: Never. Substance Use Never, Heroin Tobacco Never tobacco user Tobacco Use:. Family History Breast cancer: Sister. Cancer: Sister, Sister and Brother. Cancer of colon: Sister. Diabetes mellitus: Mother. Heart disease: Mother and Father. Family Member(s): ?? FATHER, at age: Unknown. Cause of : Family Member(s): ?? MOTHER, at age: Unknown. Cause of : Electronically Signed on 01/25/23 01:56 PM Jake Watts MD Patient Care team information Care Team Personnel Name: Unavailable, Physician Position: No Access Member Role: Primary Care Physician
--- NOTE | 2023-04-07 09:15 | DI.RAD_ITS ---
Exam(s) XR PORTABLE CHEST AP EXAM: XR PORTABLE CHEST AP CLINICAL HISTORY: fever TECHNIQUE: 2D digital imaging was performed of the chest. One image was obtained. An AP view was ob tained. COMPARISON: CR XR PORTABLE CHEST AP from 02/23/2021 CR XR CHEST 2V PA LATERAL from 06/14/2022 FINDINGS: MEDIASTINUM: Normal. HEART: Normal. There is a cardiac pacing device in stable position. PULMONARY VASCULATURE: Normal. LUNGS: There is an opacity in the right lung base. The left lung is clear. PLEURAL SPACE: No pleural effusion or pneumothorax. BONE:Within normal limits for the patient's age. OTHER FINDINGS:Normal. IMPRESSION: Right basilar infiltrate. This may represent a pneumonia. A follow-up chest x-ray is recommended fo llowing treatment to document complete resolution. DATA REPOSITORY: RADIATION DOSE DELIVERED:
--- NOTE | 2023-04-07 09:15 | RT.EKG_ITS ---
APPROVED REPORT Exam: Resting ECG Reason for Exam: abd pain, fever Patient Location: E HR:87 bpm ECG Measurements Heart Rate 87 AXIS PA 218 P 29 QRSd 89 QRS 99 QT 363 T -10 QTc 436 Conclusion sinus 87 normal axis, PRlong 218 no acute changes
[2023-04-07] MEDS: PIPERACILLIN/TAZO 4.5 GM in Normal Saline 100 ML IVPB (09:23)
[2023-04-07 09:29] LABS: COVID-19 PCR Negative (Negative); Influenza A PCR Negative (Negative); Influenza B PCR Negative (Negative); RSV PCR Negative (Negative); Source Nasopharynx
--- NOTE | 2023-04-07 09:41 | ED.GENADUL_ITS ---
Discharge Plan Disposition Patient Disposition: Admit to [facility] Condition: Serious Discharge Details Chief Complaint: Fever Clinical Impression: Fever, Sepsis, Pneumonia Admit Date/Time: 04/07/23 12:33 Admit Provider: Edin Johnson Attending Provider: Edin Johnson Primary Care Provider: Vicenta Freed ED Provider: Jessica Fatima Medical Decision Making Patient arrived and was initially evaluated during downtime. Please see downtime documentation. Emergent evaluation of fever and bodyaches. Initial concerns for sepsis, pneumonia, intra-abdominal infection, UTI. Patient has no obvious signs on physical examination. Her fever is improving with Tylenol given by EMS. Will check lab work, cultures and imaging. 0955: Labs reported during downtime. CMP reviewed, no significant electrolyte abnormalities. Normal liver and renal function. CBC with a leukocytosis of 12, no anemia, normal platelet count. Lactic acid slightly elevated at 1.9. There was a delay in antibiotic administration secondary to the patient not knowing her allergies and being unable to access the medical record due to downtime. 1000: Chest x-ray and report reviewed and independently interpreted by me, the patient has a right lower lobe infiltrate. Broad-spectrum antibiotics have already been given. A CT scan was obtained due to the patient's persistent nausea, she has a benign abdominal exam and the CT scan does not demonstrate any additional intra- abdominal findings. Discussed with the hospitalist and the patient will be admitted for further management of her pneumonia. During the patient's time in the emergency department, she became progressively tachypneic and blood pressures began to soften. Though not hypoxic, patient placed on 2 L of oxygen to help with work of breathing. Medical Records Medical records reviewed: Yes I reviewed the patient's medical records. Lab Data Lab results reviewed: Yes I reviewed the patient's lab results. ECG Data Attestation: I personally reviewed and interpreted this ECG (s) as follows: Interpretation: Sinus 87, normal axis, prolonged ID interval at 218 HPI General Date/Time Provider Initiated Documentation: 04/07/23 09:03 . HPI Narrative: 83-year-old female with past medical history of PVD, diabetes, A-fib presents for evaluation of not feeling well. Patient reports that yesterday she started feeling sick. Had the chills and could not get warm. She is says that this morning she woke up feeling worse, she felt like her heart was racing fast. She has generalized fatigue and bodyaches. She has nausea and has vomited a few times. She received Tylenol and Zofran by EMS. Related Data Home Medications Medication Instructions Recorded Confirmed multivitamin 1 ea PO DAILY 11/05/12 04/07/23 compress.stocking,knee,reg,lrg #1 ea 03/20/21 04/07/23 calcium carb 1,200 mg-mag hydrox 10 ml PO PRN PRN 06/23/21 04/07/23 270 mg-simeth 80 mg/10 mL oral susp (Mylanta Coat-Cool) albuterol sulfate 90 mcg/actuation 2 puff inhalation Q4H PRN PRN 06/24/21 04/07/23 aerosol inhaler (ProAir HFA) shortness of breath or wheezing ##3 blood-glucose meter (OneTouch #1 ea 07/24/21 04/07/23 Verio Meter) lancing device with lancets kit #1 ea 07/24/21 04/07/23 (OneTouch Delica Plus Lancing Device kit) acetaminophen 500 mg tablet 1,000 mg (2 x 500 mg) PO Q8H PRN 05/26/22 04/07/23 pain #90 tabs docusate sodium 100 mg capsule 100 mg PO BID #30 caps 05/26/22 04/07/23 (Colace) blood sugar diagnostic (OneTouch #200 ea 07/07/22 04/07/23 Verio test strips) metoprolol tartrate 25 mg tablet See Rx Instructions .Route 07/27/22 04/07/23 .COMPLEX #90 tabs fluticasone propionate 110 2 puff inhalation BID #3 09/17/22 04/07/23 mcg/actuation HFA aerosol inhaler inhalations (Flovent HFA) insulin glargine 100 unit/mL (3 10 unit (0.1 mL) subcut DAILY for 10/07/22 04/07/23 mL) subcutaneous pen mgmt of diabetes, E11.9, with A1C goal < 7.5 #15 mL furosemide 20 mg tablet 20 mg PO BID edema #180 tabs 10/14/22 04/07/23 apixaban 5 mg tablet (Eliquis) 5 mg PO BID #180 tab-caps 11/24/22 04/07/23 pen needle, diabetic 31 gauge x #100 ea 01/03/23 04/07/23 316 (BD Ultra-Fine Mini Pen Needle) potassium chloride 20 mEq 20 meq PO DAILY #90 tabs 01/13/23 04/07/23 tablet,extended release lancets 33 gauge (OneTouch Delica #100 ea 02/03/23 04/07/23 Plus Lancet) ketoconazole 2 % topical cream 1 applic topical DAILY 3 months 02/23/23 04/07/23 #60 grams levothyroxine 100 mcg tablet 100 mcg PO DAILY #90 tab-caps 03/06/23 04/07/23 Previous Rx's Medication Instructions Recorded compress.stocking,knee,reg,lrg #1 ea 03/20/21 albuterol sulfate 90 mcg/actuation 2 puff inhalation Q4H PRN PRN 06/24/21 aerosol inhaler (ProAir HFA) shortness of breath or wheezing ##3 blood-glucose meter (OneTouch #1 ea 07/24/21 Verio Meter) lancing device with lancets kit #1 ea 07/24/21 (OneTouch Delica Plus Lancing Device kit) acetaminophen 500 mg tablet 1,000 mg (2 x 500 mg) PO Q8H PRN 05/26/22 pain #90 tabs docusate sodium 100 mg capsule 100 mg PO BID #30 caps 05/26/22 (Colace) blood sugar diagnostic (OneTouch #200 ea 07/07/22 Verio test strips) metoprolol tartrate 25 mg tablet See Rx Instructions .Route 07/27/22 .COMPLEX #90 tabs fluticasone propionate 110 2 puff inhalation BID #3 09/17/22 mcg/actuation HFA aerosol inhaler inhalations (Flovent HFA) insulin glargine 100 unit/mL (3 10 unit (0.1 mL) subcut DAILY for 10/07/22 mL) subcutaneous pen mgmt of diabetes, E11.9, with A1C goal < 7.5 #15 mL furosemide 20 mg tablet 20 mg PO BID edema #180 tabs 10/14/22 apixaban 5 mg tablet (Eliquis) 5 mg PO BID #180 tab-caps 11/24/22 pen needle, diabetic 31 gauge x #100 ea 01/03/23 316 (BD Ultra-Fine Mini Pen Needle) potassium chloride 20 mEq 20 meq PO DAILY #90 tabs 01/13/23 tablet,extended release lancets 33 gauge (OneTouch Delica #100 ea 02/03/23 Plus Lancet) ketoconazole 2 % topical cream 1 applic topical DAILY 3 months 02/23/23 #60 grams levothyroxine 100 mcg tablet 100 mcg PO DAILY #90 tab-caps 03/06/23 Allergies Allergy/AdvReac Type Severity Reaction Status Date / Time ranitidine Allergy Severe WHEEZING Verified 03/30/23 11:12 cefadroxil Allergy Mild Verified 03/30/23 11:12 empagliflozin AdvReac Severe UTI Verified 03/30/23 11:12 [From Jardiance] metformin AdvReac Severe Diarrhea Verified 03/30/23 11:12 ciprofloxacin AdvReac Intermediate WEAKNESS Verified 03/30/23 11:12 pneumococcal 13-valent AdvReac Intermediate temp and Verified 03/30/23 11:12 conjugate to body aches [From Prevnar 13 (PF)] sucralfate AdvReac Intermediate N/V Verified 03/30/23 11:12 levofloxacin AdvReac Other (See Verified 03/30/23 11:12 Comment) General Stated Complaint: Fever DEXTER: 3 PFSH All Active Problems (Updated 04/07/23 @ 14:35 by Jessica Fatima MD) Pneumonia (Acute) Sepsis (Acute) Fever (Acute) Ingrown toenail (Acute) Onychomycosis (Acute) PVD (peripheral vascular disease) (Chronic) Venous insufficiency (Acute) Sacroiliac joint dysfunction of right side (Acute) Hiatal hernia (Chronic) 01/25/23 5cm (H GI) Lipedema of lower extremity (Acute) nodular, symm, tender inner upper calves Nail dystrophy (Acute) Hypokalemia (Acute) Critically low, High risk medication use (Acute) Amiodarone since July, evaluating for tox (06/20/22 d/w [facility] cardio) 2' SOB w/NEG CTA & no improvement post diuresis (furosemide 40) SOB (shortness of breath) (Acute) Diabetes mellitus due to underlying condition, uncontrolled, with hyperglycemia (Acute) A1C rise due to inactivity 2' back/knee pain & steroid use.. winter 2021 Insulin dose changed (Acute) Elevated serum free T4 level (Acute) high TSH, High T4, 03/2022 ... Hx low TSH and high T4 (08/2021) Elevated TSH (Acute) Lymphedema (Acute) nonpitting edema -- seems lymphedema -- appreciate pt eval Atrial tachycardia (Acute) per Cardiology, [facility] .. Admitted post xfer from [facility] ED (08/08/21). EF 50%. Amiodarone started; Flecainide stopped. Amiodarone stopped 2022 concern for pulm tox Atrial fibrillation (Acute 07/06/11) normal echo and cath 2008; flecanide Rx; apixiban; echo 09/2013 EF 60%.. Atrioventricular block (Acute 07/07/12) pacemaker placement 12/04/2013; 5 sec asystoles last interrogation, 03/2017. Pacemaker (Acute 09/16/17) Sees DARNELL Tejada ([facility]). Dual lead Medtronic pacemaker Adapta .. Placed 2013, Dr. Edin Robles. 99Medtronic dual lead pacemaker implanted 12/04/2013 .. Adapta [id number] .. RA Medtronic [id number], 11/2013.. RV [id number] 12/04/2013)) Tachycardia (Acute) Type 2 diabetes mellitus (Acute) A1C jump 2' limited ambulation & steroid use. [ ] Insulin due to intolerance of PO Rx, ik, 03/2022.. Recent A1C increase, from pre-diabetes to DM this past year.. Edema (Acute) LE edema , R>L .. notable, possibly 2' Jardiance intolerance, but possible lymphedema (?) Medication intolerance (Acute) Unable to tolerate Jardiance (candidiasis!), Metformin. Dysphagia, unspecified (Acute 07/07/12) EGD KD: mild esophagitis 10/[address] Ragsdale 09/23/[address] Duncan, [facility], [place], [place]. Impression: Gerd Dysphagia. Rule out secondary to esophageal ulcer,dysmotility, or from perhaps a failing Singh. recommeded: Upper GI Gerd protocaol discussed w/ pt. panel 2,B12 If pt continues sx, may want to repeat upper endoscopy. Plans to see her back in [place]. Gastroesophageal reflux disease (Acute 07/07/12) Managed with PPI for years, worsening x 2-3 months. Now associated with LUQ tenderness, 05/26/17. []H.pylori [] U/S LUQ ik IMPROVED with weight loss, 06/02.19, ik EGD rescheduled with Dr. Escobar (2' [place] not yet taking appts @ [facility]), 05/26/17 .. Consulted, EGD sched for 06/29/17. note: s/p Singh, hernia repair, and esoph dilation (2013) 10/29/21 GI visit with f/u in 6w Atrophic gastritis without mention of hemorrhage (Acute 07/07/12) History of hiatal hernia (Acute) Reactive airway disease (Chronic) Medical History Arthropathy of left knee Arthritis of left knee s/p L TKA 05/26/22 Failed fundoplication Pyrosis Sensorineural hearing loss Lesion of face or BCCA left lateral canthus 09/14/[address] Dillon 09/22/21 sutures removed Left knee pain DEPO MEDROL 01/14/22 Arthrocentesis @ [facility] (during hosp stay for atrial tach), NEG.. referred to local ortho ([facility]). High risk medications (not anticoagulants) long-term use Amiodarone started, 07/2021 (after years on flecainide).. [ ] Ophtho, EP, Echo, PFTs .. short-term lasix. Cardiomyopathy Due to atrial tachycardia.. xferred to [facility], PM reprogrammed. Amiodarone replacing flecainide. Low-dose diuretics (see 08/11/21 [facility] Cardio note).. Vulvovaginal candidiasis 2' Jardiance .. trial monostat or diflucan . STOP Jardiance if janae returns. Esophagitis determined by biopsy Hypomagnesemia Noted @ ED, 02/2021 .. replenished. Monitor [ ] Macular pucker Leg edema Leg weakness With standing .. Hx lumbar stenosis .. Hx spinal injection (?) Muscle spasm of left shoulder area Trapezius MM Spasm .. Deformity of toenail Right lumbar radiculopathy Spinal stenosis of lumbar region High risk medications (not anticoagulants) long-term use Flecainide - started by Dr. Heitzman Hot flashes Hot Flashes x 6 mos, 06/13/19. Piriformis syndrome of right side Pelvic pain (02/07/13) Trochanteric bursitis, right hip (05/19/16) Thyroid nodule (01/28/15) 01/01/15 US 4mm nodule isthmus 05/15/15 US 4.5 nodule isthmus, ?7x5 nodule right Sensorineural hearing loss, bilateral (12/28/13) Primary osteoarthritis of right knee (01/10/17) s/p RT TKR Fall 2017 Postnasal drip (01/09/15) Osteoarth NOS-unspec (07/06/11) Neurogenic pain of right lower extremity (09/19/15) Multinodular goiter (12/19/15) Impaired glucose tolerance (03/10/12) Hypothyroidism (01/02/13) TSH 2.43 (05/2017) vs. >9 (02/2017). Cont @ same 88mcg. Hyperlipidemia (07/07/12) Family hx-breast malignancy (11/13/12) SISTER IN 60s Exertional dyspnea (01/28/15) Essential hypertension (01/18/13) FRS 13% .. 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 [facility] q6m x1 year, then annually. --[facility] 06/2016 Shakira Diaz MD Post-radiation association with new abd pain (?), ik, 05/26/17 Controlled type 2 diabetes mellitus without complication, without long-term current use of insulin (03/26/16) POOR CTL, 01/2021 (A1C 7.6) .. A1C goal 7.5 ... 7.1 today, 08/07/20. 6.8/6.9 in 11/2016. A1C 6.5 post weight loss and focused effort on reducing carbs/sweets. 06/02/18, michelle A1C remains @ 6.5 08/2018, good job! Chronic eczematoid otitis externa of both ears (01/22/16) Dr Jeffrey Cardenas Asthma (01/18/13) possible asthma; PFTs normal 04/27/2012.07/2013 Sensorineural hearing loss of both ears Urge incontinence History of postmenopausal bleeding Symptomatic bradycardia Surgical History History of total left knee replacement (TKR) (05/26/22) History of total knee arthroplasty (05/26/22) Status post right knee replacement Dr. Del Cid, Ortho. She is happy with knee, able to step down from sidewalk w/o fear per 03/02/18 appt discussion. COntinues to do well; seeing ortho for possible neuropathic pain (outer rt calf). upper GI Series (10/05/17) for sx of epigastric dysphagia,GERD. Done by Dr. Duncan. Impression: Moderate sized Hiatal Hernia. Marked gastroesophageal reflux. sentinal lymph node dissection (07/01/16) NEG for mets from endometrium Replacement of total knee joint (12/03/16) R knee Dr Del Cid Pacemaker (12/04/13) Hyseterectomy, Total Laparoscopic w/ BSO (07/01/16) +Endometrial cancer Hernia, hiatal (banding) EGD - MAC (06/29/17) Colonoscopy - IV Sedation (03/17/16) Cholecystectomy Extraction of cataract B/L Cardiac Cath, 2008 History of Surgical Procedure a. Cholecystectomy. b. Bilateral cataract surgery. c. Hiatal hernia repair 2008. d. Esophagus stretching 2013 - Dr. Ragsdale. e. Pacemaker 12/04/2013 Family History Mother , old age at age 98. No problems noted. Father , Heart disease at age 64. Heart disease [place] Sister , Colon [place] Personal history of malignant neoplasm Sister , Heart problems at age 72. Personal history of malignant neoplasm Breast cancer, dx'ed in her 60s Heart disease Sister Hypertensive disorder, systemic arterial Diabetes Sister Diabetes Sister Hypertensive disorder, systemic arterial Brother , Parkinson's at age 75. Personal history of malignant neoplasm Brother Parkinson's disease Brother , Heart condition at age 62. Hypertensive disorder, systemic arterial Diabetes Brother Hypertensive disorder, systemic arterial Diabetes Social History Smoking/Tobacco Use Status: Never Smoking risk assessment performed?: Yes Alcohol Intake: never Drug use: Never Substance use type: does not use Adopted: No Foster care: No Housing: apartment Number of Children: 0 number of grandchildren: 0 Communication Needs: Corrective Lenses current occupation: retired from [employer] Pets and animals: No Current gender identity: female What is your relationship status?: Panel score (0-1 are the most socially isolated patients): 0 Seatbelt use: always Working smoke detector in home: Yes Fire extinguisher in home: Yes Carbon monox detector in home: Yes Firearms in home: No Do you feel safe at home: Yes Do you feel safe in your relationship?: Yes Exam Narrative Exam Narrative: Review of Systems: All systems reviewed & are unremarkable except as noted in HPI and below: CONSTITUTIONAL: Alert and oriented Elderly, frail HEENT: NCAT EYES: PERRL, no conjunctival injection NOSE nares patent MOUTH dry MM NECK: Symmetric, trachea midline, No thyromegaly THROAT oropharynx clear CVS: Regular rate, No murmurs or gallops. Peripheral pulses 2+ and equal in all extremities Brisk capillary refill in all extremities. No peripheral edema RESP: Unlabored respiratory effort, Clear to auscultation bilaterally No wheezes rales or rhonchi GI: Soft, Nontender, Nondistended, No organomegaly MSK: Extremities with full range of motion, no deformity or TTP SKIN: Warm, Dry. No rashes or lesions. NEURO: No focal neurologic deficits. Course Vital Signs Vital signs: Vital Signs Temperature 37.7 C H 04/07/23 09:00 Pulse 75 04/07/23 09:00 Respiratory Rate 14 04/07/23 09:00 Blood Pressure 129/53 L 04/07/23 09:00 Pulse Oximetry 97 04/07/23 09:00 Temperature 37.9 C H 04/07/23 09:10 Temperature Source Oral 04/07/23 09:10 Pulse 80 04/07/23 09:10 Respiratory Rate 16 04/07/23 09:10 Respiratory Effort Normal, Non-Labored 04/07/23 09:08 Blood Pressure 139/68 04/07/23 09:10 Pulse Oximetry 97 04/07/23 09:10 Oxygen Delivery Method Room Air 04/07/23 09:10 Oxygen Flow Rate 0 04/07/23 09:04 Pain Level 4 04/07/23 09:10 Lab/Test Results Lab/Test Results: 04/07/23 09:20 Blood Blood Culture - Pending 04/07/23 09:00 Blood Blood Culture - Pending Laboratory Tests Range/Units 04/07/23 08:05 COVID-19 Source Nasopharynx SARS-CoV-2 (PCR) (Negative) Negative Influenza Type A (PCR) (Negative) Negative Influenza Type B (PCR) (Negative) Negative RSV (PCR) (Negative) Negative Critical Care Time Critical Care Time Critical Care Time: Yes Total Critical Care Time: 35 Attestation: CRITICAL CARE Upon my evaluation, this patient had a high probability of imminent or life- threatening deterioration due to sepsis, pneumonia which required my direct at tention, intervention, and personal management. I have personally provided 35 minutes of critical care time exclusive of time spent on separately billable procedures. Time includes review of laboratory data, radiology results, discussion with consultants, and monitoring for potential decompensation. Interventions were performed as documented above
[2023-04-07] MEDS: VANCOMYCIN/WATER (PEG) 1 GM/200 ML BAG IV (10:05)
[2023-04-07] MEDS: Promethazine 25 MG TAB PO (10:07)
[2023-04-07] MEDS: Normal Saline - Diluent 50 ML VIAL IJ (11:08)
[2023-04-07] MEDS: Omnipaque 350 MG/ML 500 ML BTL-Imaging package 100 ML IJ (11:10)
--- NOTE | 2023-04-07 11:15 | DI.CT_ITS ---
Exam(s) CT ABDOMEN PELVIS W EXAM: CT ABDOMEN PELVIS W CLINICAL HISTORY: nausea, fever TECHNIQUE: Imaging Protocol: Axial computed tomography images with coronal and sagittal reformatted images were created and reviewed CONTRAST MATERIAL: Intravenous: Omnipaque 350 Contrast volume:100 mL Oral: No COMPARISON: CT CT ABDOMEN PELVIS W from 09/22/[address] CHEST PE CTA from 12/31/2022 CR XR PORTABLE CHEST AP from 04/07/2023 FINDINGS: ABDOMEN: Lung Bases: There is a moderate size hiatal hernia. There is an infiltrate in the right middle lobe. Liver: Normal density. No measurable mass. Portal, Superior Mesenteric, and Splenic Veins: Unremarkable. Gallbladder and Biliary Tract: Status post cholecystectomy. There is no significant biliary ductal d ilatation. Pancreas: Normal density, no abnormal calcifications or inflammatory process. Spleen: Normal. Adrenals: No masses seen. Kidneys: Normal size, contour and axis. No radiodense stones or obstructive uropathy. No masses seen. Abdominal Aorta: Abdominal portion non-dilated. Atherosclerosis. Bowel: There is diverticulosis of the colon but no evidence of acute diverticulitis. There is no dipika dence of bowel obstruction or bowel wall thickening. No evidence of appendicitis. Peritoneal Cavity: No ascites, collection or mesenteric inflammatory response. No free air. Lymph Nodes: Within normal limits. Bones: Within normal limits for the patient's age. There is a right convex lumbar scoliosis. Soft Tissues: Unremarkable. PELVIS: Bladder: Symmetric distention, no gross wall thickening. Reproductive Organs: Status post hysterectomy. Lymph Nodes: Within normal limits. Bones: Within normal limits for the patient's age. IMPRESSION: 1. There is a right middle lobe pneumonia. 2. No acute abdominal or pelvic process. 3. Findings were discussed with Dr. Fatima at 11:54 a.m. on 04/07/2023. RADIATION DOSE DELIVERED: Total DLP DATA REPOSITORY: All CT scans at this facility are submitted to the National Radiology Data Registry (NRDR) Dose Index Registry (DIR) with the [employer] (ACR). RADIATION OPTIMIZATION: All CT scans at this facility use at least one of these dose optimization te chniques: automated exposure control; mA and/or kV adjustment per patient size (includes targeted exa ms where dose is matched to clinical indication); or iterative reconstruction.
[2023-04-07 11:19] LABS: ALT 20 U/L (14-59); AST 14 U/L (15-37); Albumin 3.3 g/dL (3.4-5.0); Alkaline Phosphatase 60 U/L (46-116); Anion Gap 8.9 mmol/L (3-11); BUN 12 mg/dL (7-18); Bilirubin, Total 1.1 mg/dL (0.2-1.0); CO2 29.1 mmol/L (21.0-32.0); CREATININE 0.8 mg/dL (0.55-1.02); Calcium 9.2 mg/dL (8.5-10.1); Chloride 98 mmol/L (98-107); Estimated GFR 72.61 (mL/min/1.73m2); Glucose 188 mg/dL (74-106); Lipase 13 U/L (16-77); NT-proBNP 92 pg/mL (<300); Potassium 3.5 mmol/L (3.5-5.1); Sodium 136 mmol/L (136-145)
[2023-04-07 11:20] LABS: Lactate 1.9 mmol/L (0.6-1.4); WBC 12.07 10^3/uL (4.4-10.8)
[2023-04-07 11:21] LABS: Absolute Basophil Count 0.03 10^3/uL (0.0-0.2); Absolute Eosinophil Count 0.03 10^3/uL (0.0-0.7); Absolute Lymphocyte Count 1.39 10^3/uL (1.2-3.4); Absolute Monocyte Count 1.34 10^3/uL (0.1-0.8); Absolute Neutrophil Count 9.21 10^3/uL (1.2-6.7); Basophils % 0.2; Eosinophils % 0.2; HCT 38.7 % (36.0-46.0); HGB 13.4 g/dL (11.2-15.7); Immature Grans % 0.6; Lymphocytes % 11.5; MCH 32.4 pg (27.0-33.0); MCHC 34.6 % (32.0-36.0); MCV 94 fL (80-95); MPV 10.7 fL (8.0-11.0); Monocytes % 11.1; Neutrophils % 76.4; Platelet Count 223 10^3/uL (130-400); RBC 4.13 10^6/uL (3.93-5.22); RDW 12.4 % (11.7-14.6); RDW-SD 42.7 fL
[2023-04-07 11:22] LABS: Abs Immature Grans 0.07 10^3/uL (0.0-0.06)
[2023-04-07] MEDS: Ketorolac 15 MG/ML VIAL 10 MG IVP (12:25)
[2023-04-07 13:23] LABS: Bilirubin Negative (Negative); Blood Large (Negative); Clarity Clear (Clear); Glucose Negative (Negative); Ketones Negative (Negative); Leukocyte Esterase Negative (Negative); Nitrite Negative (Negative); Urobilinogen 0.2 mg/dL (Up to 0.2)
[2023-04-07 13:30] LABS: Bacteria Negative HPF (Negative); C & S Indicated? No; Casts Negative LPF (Negative); Crystals Negative HPF (Negative); Epithelial Cells Rare HPF (Negative); Mucus Negative (Negative); RBC 20-50 HPF (0-2); WBC Negative HPF (0-5)
[2023-04-07] MEDS: Normal Saline 500 ML IV (13:45)
[2023-04-07 15:01] LABS: MRSA PCR Negative (Negative)
--- NOTE | 2023-04-07 15:19 | HPE_ITS ---
Date of service: 04/07/23 Time of Service: 14:50 Assessment and Plan Assessment and plan (1) Pneumonia: Status: Acute Assessment and plan: WBC 12.07, febrile 38.0, N/V, CT: right middle lobe PNA; CXR with Started on Vancomycin in the ED, will continue and discontiue if MRSA PCR is positive. Patient is now hypottensive and febrile Cefepime for coverage for more severe pneumonia and Azithromycin Awaiting furhter lab results, might be able to narrow the treatment (2) Fever: Status: Acute Assessment and plan: PRN acetaminophen , give IV if unable to retain oral Patient remains febrile after IV APAP (3) Sepsis associated hypotension: Status: Acute Assessment and plan: Recurring hypotension despite initial fluid resuscitation in the ER, will complete to 30 ml/kg of ideal body weight; considering ICU transfer if hypotension persists Treating pneumonia with above antibiotics. At 17:50 the patient had another episode of hypotension w SBP 80's- 70's, febrile 38.4.Patient was lethargic, looked pasty and showed signs of hypoperfusion with pallor around her mouth, was arousable to tactile stimuli, 250 ml LR bolus given X2. Dr Johnson completed a passive leg raise assessment and the stroke volume had increased 10%, most likely indicating positive fluid responsiveness. HR reported to be 120-130's, also noticed with POCUS-obstruction of outflow tract by mitral valve d/t fast rate. lopressor ordered and administered with decreased in HR; HR 87-99 post lopressor 2.5 mg IV X2, BP 80's/50's. Patient was less lethargic and more responsive to verbal stimuli,less localized pallor, more aware of her surroundings. Patient was transferred to ICU to the care of Dr. Johnson. (4) SIRS (systemic inflammatory response syndrome): Status: Acute Assessment and plan: As above (5) At risk for sepsis: Status: Acute Assessment and plan: As above lactic 1.9, RR 28 in the ED, (6) On deep vein thrombosis (DVT) prophylaxis: Status: Acute Assessment and plan: On Eliquis for Atrial-Fibrillation (7) Nausea and vomiting: Status: Acute Assessment and plan: Will start PRN IV ondansetron (8) Atrial fibrillation: Status: Acute Assessment and plan: On telemetry Metorprolol with parameters,A-fib HR 100 on telemetry Qualifiers: Atrial fibrillation type: unspecified Qualified Code(s): I48.91 - Unspecified atrial fibrillation (9) Discharge planning issues: Status: Acute Assessment and plan: CM to f/u, leaving alone Discussed with Dr. Johnson History of Present Illness History of Present Illness Chief Complaint: Shortness of breath nausea vomiting, malaise Narrative: This 83-year-old female patient with a past medical history of diabetes, atrial fibrillation, cardiomyopathy with a pacemaker, CHF with LVEF 50-55% in 07/2022, PVD presented to the emergency room at [facility] today via EMS with complaints of not feeling well since yesterday afternoon. During EMS transport, the patient received ondansetron and acetaminophen. In the ED, the patient was on oxygen remarkable labs were WBC at 12, and a lactic at 1.9. Fulvid was negative. Chest XR way showed right lower lobe infiltrate and the chest CT showed right middle lobe infiltrate. The patient received Zosyn, Vancomycin IV. The hospitalist was consulted and the patient was admitted to the medical-surgical unit with telemetry for management and evaluation of community acquired pneumonia, SIRS. After the acceptance to the floor,The patient also received 1 liter of NS in the ED for hypotension When seen, the patient reported chills,fever, inability to warm up, shortness of breath, no further palpitations, nausea without vomiting. The patient also reported having body aches and fatigue. The patient denied change in vision, coughing, nasal congestion, chest pain ,sore throat, hematemesis, diarrhea, constipation, melena, or dysuria. The patient also mentions that she has a pacemaker and that she wants to be revived and intubated if she can leave a normal life after. Review of Systems Narrative: Patient reports fatigue, body ache,chills Constitutional Constitutional: Reports system reviewed and no additional complaints, except as documented, Reports daytime sleepiness, Reports fatigue, Denies headache(s), Reports lethargy, Reports malaise and Reports weakness Eyes Eyes: Reports system reviewed and no additional complaints, except as documented and Denies loss of vision ENT Ears, Nose, Mouth, and Throat: Denies headache(s) Cardiovascular Cardiovascular: Reports as per HPI, Denies acrocyanosis, Denies chest pain, Reports palpitations, Reports dyspnea and Reports dyspnea on exertion Respiratory Respiratory: Reports as per HPI, Reports dyspnea and Reports dyspnea on exertion Gastrointestinal Gastrointestinal: Reports as per HPI, Reports system reviewed and no additional complaints, except as documented, Denies abdominal pain, Denies diarrhea, Reports nausea and Reports vomiting Genitourinary Genitourinary: Reports system reviewed and no additional complaints, except as documented, Denies dysuria, Denies urinary hesitancy and Denies urinary urgency Musculoskeletal Musculoskeletal: Denies back pain, Reports myalgias and Reports muscle weakness Integumentary/Breasts Skin/Breast: Reports system reviewed and no additional complaints, except as documented, Denies lesions, Denies rash and Denies wounds Neurologic Neurologic: Reports system reviewed and no additional complaints, except as documented, Reports as per HPI, Denies headache(s), Denies loss of vision and Reports weakness Psychiatric Psychiatric: Reports system reviewed and no additional complaints, except as documented Endocrine Endocrine: Reports fatigue and Reports palpitations Hematologic/Lymphatic Hematologic/Lymphatic: Reports system reviewed and no additional complaints, except as documented, Denies easy bruising and Denies lymphadenopathy PFSH All Active Problems At risk for sepsis (Acute) Sepsis associated hypotension (Acute) Nausea and vomiting (Acute) Discharge planning issues (Acute) On deep vein thrombosis (DVT) prophylaxis (Acute) SIRS (systemic inflammatory response syndrome) (Acute) Pneumonia (Acute) Sepsis (Acute) Fever (Acute) Ingrown toenail (Acute) Onychomycosis (Acute) PVD (peripheral vascular disease) (Chronic) Venous insufficiency (Acute) Sacroiliac joint dysfunction of right side (Acute) Hiatal hernia (Chronic) 01/25/23 5cm ([facility] GI) Lipedema of lower extremity (Acute) nodular, symm, tender inner upper calves Nail dystrophy (Acute) Hypokalemia (Acute) Critically low, High risk medication use (Acute) Amiodarone since July, evaluating for tox [place] [facility] [place] 2' SOB w/NEG CTA & no improvement post diuresis (furosemide 40) SOB (shortness of breath) (Acute) Diabetes mellitus due to underlying condition, uncontrolled, with hyperglycemia (Acute) A1C rise due to inactivity 2' back/knee pain & steroid use.. winter 2021 Insulin dose changed (Acute) Elevated serum free T4 level (Acute) high TSH, High T4, 03/2022 ... Hx low TSH and high T4 (08/2021) Elevated TSH (Acute) Lymphedema (Acute) nonpitting edema -- seems lymphedema -- appreciate pt eval Atrial tachycardia (Acute) per Cardiology, [facility] [place] .. Admitted post xfer from [facility] ED (08/08/21). EF 50%. Amiodarone started; Flecainide stopped. Amiodarone stopped 2022 concern for pulm tox Atrial fibrillation (Acute 07/06/11) normal echo and cath 2008; flecanide Rx; apixiban; echo 09/2013 EF 60%.. Atrioventricular block (Acute 07/07/12) pacemaker placement 12/04/2013; 5 sec asystoles last interrogation, 03/2017. Pacemaker (Acute 09/16/17) Sees DARNELL Tejada ([facility]). Dual lead Medtronic pacemaker Adapta .. Placed 2013, Dr. Edin Robles. 99Medtronic dual lead pacemaker implanted 12/04/2013 .. Adapta [id number] .. RA Medtronic [id number], 11/2013.. RV [id number] 12/04/2013)) Tachycardia (Acute) Type 2 diabetes mellitus (Acute) A1C jump 2' limited ambulation & steroid use. [ ] Insulin due to intolerance of PO Rx, ik, 03/2022.. Recent A1C increase, from pre-diabetes to DM this past year.. Edema (Acute) LE edema , R>L .. notable, possibly 2' Jardiance intolerance, but possible lymphedema (?) Medication intolerance (Acute) Unable to tolerate Jardiance (candidiasis!), Metformin. Dysphagia, unspecified (Acute 07/07/12) EGD KD: mild esophagitis 10/[address] Ragsdale 09/23/[address] Duncan, [facility], [place], [place]. Impression: Gerd Dysphagia. Rule out secondary to esophageal ulcer,dysmotility, or from perhaps a failing Singh. recommeded: Upper GI Gerd protocaol discussed w/ pt. panel 2,B12 If pt continues sx, may want to repeat upper endoscopy. Plans to see her back in follwup. Gastroesophageal reflux disease (Acute 07/07/12) Managed with PPI for years, worsening x 2-3 months. Now associated with LUQ tenderness, 2/1/18. []H.pylori [] U/S LUQ ik IMPROVED with weight loss, 06/02.19, ik EGD rescheduled with Dr. Escobar (2' [place] not yet taking appts @ [facility]), 05/26/17 .. Consulted, EGD sched for 06/29/17. note: s/p Singh, hernia repair, and esoph dilation (2013) 10/29/21 GI visit with f/u in 6w Atrophic gastritis without mention of hemorrhage (Acute 07/07/12) History of hiatal hernia (Acute) Reactive airway disease (Chronic) Medical History Arthropathy of left knee Arthritis of left knee s/p L TKA 05/26/22 Failed fundoplication Pyrosis Sensorineural hearing loss Lesion of face or BCCA left lateral canthus 09/14/[address] Dillon 09/22/21 sutures removed Left knee pain DEPO MEDROL 01/14/22 Arthrocentesis @ [facility] [facility] (during hosp stay for atrial tach), NEG.. referred to local ortho ([facility]). High risk medications (not anticoagulants) long-term use Amiodarone started, 07/2021 (after years on flecainide).. [ ] Ophtho, EP, Echo, PFTs .. short-term lasix. Cardiomyopathy Due to atrial tachycardia.. xferred to [facility] [place], PM reprogrammed. Amiodarone replacing flecainide. Low-dose diuretics (see 08/11/21 [facility] Cardio note).. Vulvovaginal candidiasis 2' Jardiance .. trial monostat or diflucan . STOP Jardiance if janae returns. Esophagitis determined by biopsy Hypomagnesemia Noted @ ED, 02/2021 .. replenished. Monitor [ ] Macular pucker Leg edema Leg weakness With standing .. Hx lumbar stenosis .. Hx spinal injection (?) Muscle spasm of left shoulder area Trapezius MM Spasm .. Deformity of toenail Right lumbar radiculopathy Spinal stenosis of lumbar region High risk medications (not anticoagulants) long-term use Flecainide - started by Dr. Douglass Hot flashes Hot Flashes x 6 mos, 06/13/19. Piriformis syndrome of right side Pelvic pain (02/07/13) Trochanteric bursitis, right hip (05/19/16) Thyroid nodule (01/28/15) 01/01/15 US 4mm nodule isthmus 05/15/15 US 4.5 nodule isthmus, ?7x5 nodule right Sensorineural hearing loss, bilateral (12/28/13) Primary osteoarthritis of right knee (01/10/17) s/p RT TKR Fall 2017 Postnasal drip (01/09/15) Osteoarth NOS-unspec (07/06/11) Neurogenic pain of right lower extremity (09/19/15) Multinodular goiter (12/19/15) Impaired glucose tolerance (03/10/12) Hypothyroidism (01/02/13) TSH 2.43 (05/2017) vs. >9 (02/2017). Cont @ same 88mcg. Hyperlipidemia (07/07/12) Family hx-breast malignancy (11/13/12) SISTER IN 60s Exertional dyspnea (01/28/15) Essential hypertension (01/18/13) FRS 13% .. 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 [facility] q6m x1 year, then annually. --[facility] 06/2016 Shakira Diaz MD Post-radiation association with new abd pain (?), ik, 05/26/17 Controlled type 2 diabetes mellitus without complication, without long-term current use of insulin (03/26/16) POOR CTL, 01/2021 (A1C 7.6) .. A1C goal 7.5 ... 7.1 today, 08/07/20. 6.8/6.9 in 11/2016. A1C 6.5 post weight loss and focused effort on reducing carbs/sweets. 06/02/18, michelle A1C remains @ 6.5 08/2018, good job! Chronic eczematoid otitis externa of both ears (01/22/16) Dr Jeffrey Cardenas Asthma (01/18/13) possible asthma; PFTs normal 04/27/2012.07/2013 Sensorineural hearing loss of both ears Urge incontinence History of postmenopausal bleeding Symptomatic bradycardia Surgical History History of total left knee replacement (TKR) (05/26/22) History of total knee arthroplasty (05/26/22) Status post right knee replacement Dr. Del Cid, Ortho. She is happy with knee, able to step down from sidewalk w/o fear per 03/02/18 appt discussion. COntinues to do well; seeing ortho for possible neuropathic pain (outer rt calf). upper GI Series (10/05/17) for sx of epigastric dysphagia,GERD. Done by Dr. Duncan. Impression: Moderate sized Hiatal Hernia. Marked gastroesophageal reflux. sentinal lymph node dissection (07/01/16) NEG for mets from endometrium Replacement of total knee joint (12/03/16) R knee Dr Del Cid Pacemaker (12/04/13) Hyseterectomy, Total Laparoscopic w/ BSO (07/01/16) +Endometrial cancer Hernia, hiatal (banding) EGD - MAC (06/29/17) Colonoscopy - IV Sedation (03/17/16) Cholecystectomy Extraction of cataract B/L Cardiac Cath, 2008 History of Surgical Procedure a. Cholecystectomy. b. Bilateral cataract surgery. c. Hiatal hernia repair 2008. d. Esophagus stretching 2013 - Dr. Ragsdale. e. Pacemaker 12/04/2013 Family History Mother , old age at age 98. No problems noted. Father , Heart disease at age 64. Heart disease [place] Sister , [place] Personal history of malignant neoplasm Sister , Heart problems at age 72. Personal history of malignant neoplasm Breast cancer, dx'ed in her 60s Heart disease Sister Hypertensive disorder, systemic arterial Diabetes Sister Diabetes Sister Hypertensive disorder, systemic arterial Brother , Parkinson's at age 75. Personal history of malignant neoplasm Brother Parkinson's disease Brother , Heart condition at age 62. Hypertensive disorder, systemic arterial Diabetes Brother Hypertensive disorder, systemic arterial Diabetes Social History Smoking/Tobacco Use Status: Never Smoking risk assessment performed?: Yes Alcohol Intake: never Drug use: Never Substance use type: does not use Adopted: No Foster care: No Housing: apartment Number of Children: 0 number of grandchildren: 0 Communication Needs: Corrective Lenses current occupation: retired from [employer] Pets and animals: No Current gender identity: female What is your relationship status?: Panel score (0-1 are the most socially isolated patients): 0 Seatbelt use: always Working smoke detector in home: Yes Fire extinguisher in home: Yes Carbon monox detector in home: Yes Firearms in home: No Do you feel safe at home: Yes Do you feel safe in your relationship?: Yes Meds Allergies and Home Medications Allergies Allergy/AdvReac Type Severity Reaction Status Date / Time ranitidine Allergy Severe WHEEZING Verified 03/30/23 11:12 cefadroxil Allergy Mild Verified 03/30/23 11:12 empagliflozin AdvReac Severe UTI Verified 03/30/23 11:12 [From Jardiance] metformin AdvReac Severe Diarrhea Verified 03/30/23 11:12 ciprofloxacin AdvReac Intermediate WEAKNESS Verified 03/30/23 11:12 pneumococcal 13-valent AdvReac Intermediate temp and Verified 03/30/23 11:12 conjugate to body aches [From Prevnar 13 (PF)] sucralfate AdvReac Intermediate N/V Verified 03/30/23 11:12 levofloxacin AdvReac Other (See Verified 03/30/23 11:12 Comment) Home Medications Medication Instructions Recorded Confirmed Type multivitamin 1 ea PO DAILY 11/05/12 04/07/23 History compress.stocking,knee,reg,lrg #1 ea 03/20/21 04/07/23 Rx calcium carb 1,200 mg-mag hydrox 10 ml PO PRN PRN 06/23/21 04/07/23 History 270 mg-simeth 80 mg/10 mL oral susp (Mylanta Coat-Cool) albuterol sulfate 90 mcg/actuation 2 puff inhalation Q4H PRN PRN 06/24/21 04/07/23 Rx aerosol inhaler (ProAir HFA) shortness of breath or wheezing ##3 blood-glucose meter (OneTouch #1 ea 07/24/21 04/07/23 Rx Verio Meter) lancing device with lancets kit #1 ea 07/24/21 04/07/23 Rx (OneTouch Delica Plus Lancing Device kit) acetaminophen 500 mg tablet 1,000 mg (2 x 500 mg) PO Q8H PRN 05/26/22 04/07/23 Rx pain #90 tabs docusate sodium 100 mg capsule 100 mg PO BID #30 caps 05/26/22 04/07/23 Rx (Colace) blood sugar diagnostic (OneTouch #200 ea 07/07/22 04/07/23 Rx Verio test strips) metoprolol tartrate 25 mg tablet See Rx Instructions .Route 07/27/22 04/07/23 Rx .COMPLEX #90 tabs fluticasone propionate 110 2 puff inhalation BID #3 09/17/22 04/07/23 Rx mcg/actuation HFA aerosol inhaler inhalations (Flovent HFA) insulin glargine 100 unit/mL (3 10 unit (0.1 mL) subcut DAILY for 10/07/22 04/07/23 Rx mL) subcutaneous pen mgmt of diabetes, E11.9, with A1C goal < 7.5 #15 mL furosemide 20 mg tablet 20 mg PO BID edema #180 tabs 10/14/22 04/07/23 Rx apixaban 5 mg tablet (Eliquis) 5 mg PO BID #180 tab-caps 11/24/22 04/07/23 Rx pen needle, diabetic 31 gauge x #100 ea 01/03/23 04/07/23 Rx 3/16 (BD Ultra-Fine Mini Pen Needle) potassium chloride 20 mEq 20 meq PO DAILY #90 tabs 01/13/23 04/07/23 Rx tablet,extended release lancets 33 gauge (Upgrade, IncTouch Delica #100 ea 02/03/23 04/07/23 Rx Plus Lancet) ketoconazole 2 % topical cream 1 applic topical DAILY 3 months 02/23/23 04/07/23 Rx #60 grams levothyroxine 100 mcg tablet 100 mcg PO DAILY #90 tab-caps 03/06/23 04/07/23 Rx Exam Narrative Exam Narrative: Constitutional The patient lying in bed with generalized weakness,and cooperative and somnolent during the interview. HENMT: Head is atraumatic, normocephalic, no lymphadenopathy. Facial structures with normal appearance Eyes: Well aligned but cannot keep them opened Neck: Normal ROM, no meningeal signs Neuro:alert and oriented to self, person, place, time and situation. No neurological focal deficit, Chest:Chest is symmetrical and normal appearance Resp: Oxygen applied, clear lung bilaterally with decreased right middle and lower lobes, no tachypnea Cardio: Tele Atrial fibrillation HR 100, S1, S2, no murmur, bilateral radial and dorsalis pedis pulses are positive, no edema GI: Abdomen is not distended, soft and non tender, bowel sounds are present : Negative Costovertebral angle tenderness, no bladder distension Back/spine/Pelvis: No back tenderness, normal alignment Integumentary: No skin lesions or rash Extremities: strength is consistently equal to bilateral lower and upper extremities Psych: RASS 0, congruent mood and normal affect. Results Labs 04/07/23 07:50 04/07/23 07:50 Labs: Laboratory Results - last 24 hr 04/07/23 04/07/23 04/07/23 07:50 08:05 13:10 WBC 12.07 H RBC 4.13 Hgb 13.4 Hct 38.7 MCV 94 MCH 32.4 MCHC 34.6 RDW 12.4 Plt Count 223 MPV 10.7 Immature Gran % 0.6 Neutrophils % 76.4 Lymphocytes % 11.5 Monocytes % 11.1 Eosinophils % 0.2 Basophils % 0.2 Nucleated RBC % 0.0 Absolute Neutrophils 9.21 H Absolute Lymphocytes 1.39 Absolute Monocytes 1.34 H Absolute Eosinophils 0.03 Absolute Basophils 0.03 VBG Lactate 1.9 H Sodium 136 Potassium 3.5 Chloride 98 Carbon Dioxide 29.1 Anion Gap 8.9 BUN 12 Creatinine 0.8 Est GFR (CKD-EPI 2020) 72.61 Glucose 188 H Calcium 9.2 Total Bilirubin 1.1 H AST 14 L ALT 20 Alkaline Phosphatase 60 NT-Pro-B Natriuret Pep 92 Total Protein 7.0 Albumin 3.3 L Lipase 13 L Urine Color Urine Clarity Urine pH Ur Specific [place] Urine Protein Urine Ketones Urine Blood Urine Nitrite Urine Bilirubin Urine Urobilinogen Ur Leukocyte Esterase Urine RBC Urine WBC Ur Epithelial Cells Urine Crystals Urine Bacteria Urine Casts Urine Mucus Ur Culture Indicated? Urine Glucose COVID-19 Source Nasopharynx SARS-CoV-2 (PCR) Negative Influenza Type A (PCR) Negative Influenza Type B (PCR) Negative RSV (PCR) Negative MRSA (TEM-PCR) Negative 04/07/23 13:15 WBC RBC Hgb Hct MCV MCH MCHC RDW Plt Count MPV Immature Gran % Neutrophils % Lymphocytes % Monocytes % Eosinophils % Basophils % Nucleated RBC % Absolute Neutrophils Absolute Lymphocytes Absolute Monocytes Absolute Eosinophils Absolute Basophils VBG Lactate Sodium Potassium Chloride Carbon Dioxide Anion Gap BUN Creatinine Est GFR (CKD-EPI 2020) Glucose Calcium Total Bilirubin AST ALT Alkaline Phosphatase NT-Pro-B Natriuret Pep Total Protein Albumin Lipase Urine Color Yellow Urine Clarity Clear Urine pH 6.0 Ur Specific [place] 1.010 Urine Protein Negative Urine Ketones Negative Urine Blood Large H Urine Nitrite Negative Urine Bilirubin Negative Urine Urobilinogen 0.2 Ur Leukocyte Esterase Negative Urine RBC 20-50 H Urine WBC Negative Ur Epithelial Cells Rare Urine Crystals Negative Urine Bacteria Negative Urine Casts Negative Urine Mucus Negative Ur Culture Indicated? No Urine Glucose Negative COVID-19 Source SARS-CoV-2 (PCR) Influenza Type A (PCR) Influenza Type B (PCR) RSV (PCR) MRSA (TEM-PCR) Last Vital Signs Temp 38.4 C H 04/07/23 14:42 Pulse 97 H 04/07/23 14:42 Resp 22 04/07/23 14:42 BP 88/52 L 04/07/23 14:42 Pulse Ox 93 04/07/23 14:42 Time Spent Time spent with Patient: >75 minutes Time was spent: preparing to see the patient(eg.review tests), obtaining and/or reviewing separately otained hiistory, ordering medications,tests, procedures, referring, communicating with other health child caregiver, indepentently interpreting results, counseling the patient and care coordination
[2023-04-07] MEDS: Albuterol/Ipratropium 3 ML UPD VIAL UPD ×2 (16:02→20:50)
[2023-04-07] MEDS: ACETAMINOPHEN 1,000 MG/100 ML BTL 400 MG IVPB (16:17)
[2023-04-07] MEDS: AZITHROMYCIN 500 MG in Normal Saline 250 ML 250 MG IVPB (16:29)
[2023-04-07] MEDS: Ondansetron 4 MG/2 ML VIAL IVP (17:17)
[2023-04-07] MEDS: CEFEPIME 2 GM in Normal Saline 100 ML IVPB (17:20)
--- NOTE | 2023-04-07 18:28 | W.PC.ACHO ---
Registration Status: ADM MAURISIO Primary Language: Preferred Language: Tajik ED Information & Data Chief Complaint Fever 04/07/23 09:42 Triage Note Epigastric pain since 04/07/23 09:04 yesterday afternoon w/ accompanying chills, unknown fever. EMS called today for same, found pt nauseous, vomiting (1x), and febrile ( 101.8). Received 1 gram tylenol and 4 mg Zophran en route. Medical / Surgical History (Last Reviewed 04/07/23 @ 11:04 by Jessica Fatima MD) Arthropathy of left knee Arthritis of left knee Failed fundoplication Pyrosis Sensorineural hearing loss Lesion of face Left knee pain High risk medications (not anticoagulants) long-term use Cardiomyopathy Vulvovaginal candidiasis Esophagitis determined by biopsy Hypomagnesemia Macular pucker Leg edema Leg weakness Muscle spasm of left shoulder area Deformity of toenail Right lumbar radiculopathy Spinal stenosis of lumbar region High risk medications (not anticoagulants) long-term use Hot flashes Piriformis syndrome of right side Pelvic pain (02/07/13) Trochanteric bursitis, right hip (05/19/16) Thyroid nodule (01/28/15) Sensorineural hearing loss, bilateral (12/28/13) Primary osteoarthritis of right knee (01/10/17) Postnasal drip (01/09/15) Osteoarth NOS-unspec (07/06/11) Neurogenic pain of right lower extremity (09/19/15) Multinodular goiter (12/19/15) Impaired glucose tolerance (03/10/12) Hypothyroidism (01/02/13) Hyperlipidemia (07/07/12) Family hx-breast malignancy (11/13/12) Exertional dyspnea (01/28/15) Essential hypertension (01/18/13) Endometrial cancer (07/19/16) Controlled type 2 diabetes mellitus without complication, without long-term current use of insulin (03/26/16) Chronic eczematoid otitis externa of both ears (01/22/16) Asthma (01/18/13) Sensorineural hearing loss of both ears Urge incontinence History of postmenopausal bleeding Symptomatic bradycardia (Last Reviewed 04/07/23 @ 11:04 by Jessica Fatima MD) History of total left knee replacement (TKR) (05/26/22) History of total knee arthroplasty (05/26/22) Status post right knee replacement upper GI Series (10/05/17) sentinal lymph node dissection (07/01/16) Replacement of total knee joint (12/03/16) Pacemaker (12/04/13) Hyseterectomy, Total Laparoscopic w/ BSO (07/01/16) Hernia, hiatal (banding) EGD - MAC (06/29/17) Colonoscopy - IV Sedation (03/17/16) Cholecystectomy Extraction of cataract Cardiac Cath, 2008 History of Surgical Procedure Most Recent Vital Signs Temperature 38 C H 04/07/23 15:51 Temperature Source Tympanic 04/07/23 15:51 Pulse 100 H 04/07/23 16:02 Pulse Rhythm Irregular 04/07/23 14:42 Pulse 102 H 04/07/23 14:01 Respiratory Rate 16 04/07/23 16:06 Respiratory Effort Labored 04/07/23 14:42 Respiratory Depth Shallow 04/07/23 14:42 Respiratory Pattern Tachypnea 04/07/23 14:42 Blood Pressure 117/71 04/07/23 15:51 Blood Pressure Mean 59 04/07/23 14:12 Pulse Oximetry 98 04/07/23 16:02 Oxygen Delivery Method Nasal Cannula 04/07/23 16:02 Oxygen Flow Rate 1 04/07/23 16:02 Pain Level 0 04/07/23 15:51 Allergies ranitidine Allergy (Severe, Verified 03/30/23 11:12) WHEEZING cefadroxil Allergy (Mild, Verified 03/30/23 11:12) pt. cant remember; HAS HAD CEFAZOLIN THE PAST WITH NO ISSUE empagliflozin [From Jardiance] Adverse Reaction (Severe, Verified 03/30/23 11:12) UTI metformin Adverse Reaction (Severe, Verified 03/30/23 11:12) Diarrhea ciprofloxacin Adverse Reaction (Intermediate, Verified 03/30/23 11:12) WEAKNESS pneumococcal 13-valent conjugate to [From Prevnar 13 (PF)] Adverse Reaction (Intermediate, Verified 03/30/23 11:12) temp and body aches sucralfate Adverse Reaction (Intermediate, Verified 03/30/23 11:12) N/V levofloxacin Adverse Reaction (Verified 03/30/23 11:12) Other (See Comment) pt reported stiff tendons both ankles. Active Medications Generic Name Dose Route Start Last Admin Trade Name Freq PRN Reason Stop Dose Admin Acetaminophen 1,000 mg 04/07/23 14:18 04/07/23 17:50 Acetaminophen 500 Mg Tab PO Not Given TID FLORIAN Albuterol/Ipratropium 3 ml 04/07/23 16:00 04/07/23 16:02 Albuterol/Ipratropium 3 Ml Upd Vial UPD 3 ml QID FLORIAN Administration Cefepime HCl 2 gm/ Sodium 100 mls @ 200 mls/hr 04/07/23 16:00 04/07/23 17:20 Chloride IVPB 200 mls/hr Q8H FLORIAN Administration Ondansetron HCl 4 mg 04/07/23 15:15 04/07/23 17:17 Ondansetron 4 Mg/2 Ml Vial IVP 4 mg Q6H PRN PRN Administration IV IV Catheter Type [Left Peripheral IV Antecubital] Diet Orders Category Date Time Status Diabetes Consistent CHO/Heart Healthy [DIET] Nutrition 04/07/23 Dinner Active Diagnostics 04/07/23 04/07/23 04/07/23 Range/Units Unknown 16:40 16:20 WBC (4.4-10.8) 10^3/uL RBC (3.93-5.22) 10^6/uL Hgb (11.2-15.7) g/dL Hct (36.0-46.0) % MCV (80-95) fL MCH (27.0-33.0) pg MCHC (32.0-36.0) % RDW (11.7-14.6) % Plt Count (130-400) 10^3/uL MPV (8.0-11.0) fL Immature Gran % Neutrophils % Lymphocytes % Monocytes % Eosinophils % Basophils % Nucleated RBC % (0.0-0.3) % Absolute Neutrophils (1.2-6.7) 10^3/uL Absolute Lymphocytes (1.2-3.4) 10^3/uL Absolute Monocytes (0.1-0.8) 10^3/uL Absolute Eosinophils (0.0-0.7) 10^3/uL Absolute Basophils (0.0-0.2) 10^3/uL VBG Lactate (0.6-1.4) mmol/L Sodium (136-145) mmol/L Potassium (3.5-5.1) mmol/L Chloride (98-107) mmol/L Carbon Dioxide (21.0-32.0) mmol/L Anion Gap (3-11) mmol/L BUN (7-18) mg/dL Creatinine (0.55-1.02) mg/dL Est GFR (CKD-EPI 2020) (mL/min/1.73m2) Glucose (74-106) mg/dL Calcium (8.5-10.1) mg/dL Total Bilirubin (0.2-1.0) mg/dL AST (15-37) U/L ALT (14-59) U/L Alkaline Phosphatase (46-116) U/L NT-Pro-B Natriuret Pep (<300) pg/mL Total Protein (6.4-8.2) g/dL Albumin (3.4-5.0) g/dL Lipase (16-77) U/L Urine Color (Yellow) Urine Clarity (Clear) Urine pH (5-8) Ur Specific [place] (1.005-1.025) Urine Protein (Negative) mg/dL Urine Ketones (Negative) mg/dL Urine Blood (Negative) Urine Nitrite (Negative) Urine Bilirubin (Negative) Urine Urobilinogen (Up to 0.2) mg/dL Ur Leukocyte Esterase (Negative) Urine RBC (0-2) HPF Urine WBC (0-5) HPF Ur Epithelial Cells (Negative) HPF Urine Crystals (Negative) HPF Urine Bacteria (Negative) HPF Urine Casts (Negative) LPF Urine Mucus (Negative) Ur Culture Indicated? Urine Glucose (Negative) mg/dL COVID-19 Source SARS-CoV-2 (PCR) (Negative) Influenza Type A (PCR) (Negative) Influenza Type B (PCR) (Negative) Urine Legionella Ag Pending RSV (PCR) (Negative) MRSA (TEM-PCR) Pending (Negative) Ur Strep pneumoniae Ag Pending Add-On Test Request Pending 04/07/23 04/07/23 04/07/23 Range/Units 13:15 13:10 08:05 WBC (4.4-10.8) 10^3/uL RBC (3.93-5.22) 10^6/uL Hgb (11.2-15.7) g/dL Hct (36.0-46.0) % MCV (80-95) fL MCH (27.0-33.0) pg MCHC (32.0-36.0) % RDW (11.7-14.6) % Plt Count (130-400) 10^3/uL MPV (8.0-11.0) fL Immature Gran % Neutrophils % Lymphocytes % Monocytes % Eosinophils % Basophils % Nucleated RBC % (0.0-0.3) % Absolute Neutrophils (1.2-6.7) 10^3/uL Absolute Lymphocytes (1.2-3.4) 10^3/uL Absolute Monocytes (0.1-0.8) 10^3/uL Absolute Eosinophils (0.0-0.7) 10^3/uL Absolute Basophils (0.0-0.2) 10^3/uL VBG Lactate (0.6-1.4) mmol/L Sodium (136-145) mmol/L Potassium (3.5-5.1) mmol/L Chloride (98-107) mmol/L Carbon Dioxide (21.0-32.0) mmol/L Anion Gap (3-11) mmol/L BUN (7-18) mg/dL Creatinine (0.55-1.02) mg/dL Est GFR (CKD-EPI 2020) (mL/min/1.73m2) Glucose (74-106) mg/dL Calcium (8.5-10.1) mg/dL Total Bilirubin (0.2-1.0) mg/dL AST (15-37) U/L ALT (14-59) U/L Alkaline Phosphatase (46-116) U/L NT-Pro-B Natriuret Pep (<300) pg/mL Total Protein (6.4-8.2) g/dL Albumin (3.4-5.0) g/dL Lipase (16-77) U/L Urine Color Yellow (Yellow) Urine Clarity Clear (Clear) Urine pH 6.0 (5-8) Ur Specific [place] 1.010 (1.005-1.025) Urine Protein Negative (Negative) mg/dL Urine Ketones Negative (Negative) mg/dL Urine Blood Large H (Negative) Urine Nitrite Negative (Negative) Urine Bilirubin Negative (Negative) Urine Urobilinogen 0.2 (Up to 0.2) mg/dL Ur Leukocyte Esterase Negative (Negative) Urine RBC 20-50 H (0-2) HPF Urine WBC Negative (0-5) HPF Ur Epithelial Cells Rare (Negative) HPF Urine Crystals Negative (Negative) HPF Urine Bacteria Negative (Negative) HPF Urine Casts Negative (Negative) LPF Urine Mucus Negative (Negative) Ur Culture Indicated? No Urine Glucose Negative (Negative) mg/dL COVID-19 Source Nasopharynx SARS-CoV-2 (PCR) Negative (Negative) Influenza Type A (PCR) Negative (Negative) Influenza Type B (PCR) Negative (Negative) Urine Legionella Ag RSV (PCR) Negative (Negative) MRSA (TEM-PCR) Negative (Negative) Ur Strep pneumoniae Ag Add-On Test Request 04/07/23 Range/Units 07:50 WBC 12.07 H (4.4-10.8) 10^3/uL RBC 4.13 (3.93-5.22) 10^6/uL Hgb 13.4 (11.2-15.7) g/dL Hct 38.7 (36.0-46.0) % MCV 94 (80-95) fL MCH 32.4 (27.0-33.0) pg MCHC 34.6 (32.0-36.0) % RDW 12.4 (11.7-14.6) % Plt Count 223 (130-400) 10^3/uL MPV 10.7 (8.0-11.0) fL Immature Gran % 0.6 Neutrophils % 76.4 Lymphocytes % 11.5 Monocytes % 11.1 Eosinophils % 0.2 Basophils % 0.2 Nucleated RBC % 0.0 (0.0-0.3) % Absolute Neutrophils 9.21 H (1.2-6.7) 10^3/uL Absolute Lymphocytes 1.39 (1.2-3.4) 10^3/uL Absolute Monocytes 1.34 H (0.1-0.8) 10^3/uL Absolute Eosinophils 0.03 (0.0-0.7) 10^3/uL Absolute Basophils 0.03 (0.0-0.2) 10^3/uL VBG Lactate 1.9 H (0.6-1.4) mmol/L Sodium 136 (136-145) mmol/L Potassium 3.5 (3.5-5.1) mmol/L Chloride 98 (98-107) mmol/L Carbon Dioxide 29.1 (21.0-32.0) mmol/L Anion Gap 8.9 (3-11) mmol/L BUN 12 (7-18) mg/dL Creatinine 0.8 (0.55-1.02) mg/dL Est GFR (CKD-EPI 2020) 72.61 (mL/min/1.73m2) Glucose 188 H (74-106) mg/dL Calcium 9.2 (8.5-10.1) mg/dL Total Bilirubin 1.1 H (0.2-1.0) mg/dL AST 14 L (15-37) U/L ALT 20 (14-59) U/L Alkaline Phosphatase 60 (46-116) U/L NT-Pro-B Natriuret Pep 92 (<300) pg/mL Total Protein 7.0 (6.4-8.2) g/dL Albumin 3.3 L (3.4-5.0) g/dL Lipase 13 L (16-77) U/L Urine Color (Yellow) Urine Clarity (Clear) Urine pH (5-8) Ur Specific [place] (1.005-1.025) Urine Protein (Negative) mg/dL Urine Ketones (Negative) mg/dL Urine Blood (Negative) Urine Nitrite (Negative) Urine Bilirubin (Negative) Urine Urobilinogen (Up to 0.2) mg/dL Ur Leukocyte Esterase (Negative) Urine RBC (0-2) HPF Urine WBC (0-5) HPF Ur Epithelial Cells (Negative) HPF Urine Crystals (Negative) HPF Urine Bacteria (Negative) HPF Urine Casts (Negative) LPF Urine Mucus (Negative) Ur Culture Indicated? Urine Glucose (Negative) mg/dL COVID-19 Source SARS-CoV-2 (PCR) (Negative) Influenza Type A (PCR) (Negative) Influenza Type B (PCR) (Negative) Urine Legionella Ag RSV (PCR) (Negative) MRSA (TEM-PCR) (Negative) Ur Strep pneumoniae Ag Add-On Test Request 04/07/23 14:30 Sputum Culture - Pending Sputum Gram Stain - Pending 04/07/23 09:00 Blood Culture - Pending Blood 04/07/23 09:20 Blood Culture - Pending Blood Intake and Output - 24 Hour Total 04/07/23 07:27 thru 04/07/23 17:51 Intake Total 1150 Output Total 525 Balance 625 Intake: IV 1150 Output: Urine 525 Other: Urine Color Yellow Urine Appearance Clear Falls Risk Assessment History of Falls No History 04/07/23 14:42 Contributing Factors Unstable 04/07/23 14:42 Ambulatory Aids Uses ambulatory device 04/07/23 14:42 Tubes/Lines W/no contributing factors 04/07/23 14:42 Fall Total Score 28 04/07/23 14:42 Level of Risk Moderate Risk 04/07/23 14:42 Problems (Last Reviewed 04/07/23 @ 11:04 by Jessica Fatima MD) At risk for sepsis (Acute) Sepsis associated hypotension (Acute) Nausea and vomiting (Acute) Discharge planning issues (Acute) On deep vein thrombosis (DVT) prophylaxis (Acute) SIRS (systemic inflammatory response syndrome) (Acute) Pneumonia (Acute) Sepsis (Acute) Fever (Acute) Atrial fibrillation (Acute 07/06/11) v v v v v v v v v Sending and/or Receiving Nurses: Please use comment section below to note any information pertinent to the patient hand-off not included above. Information / Comments: A/O x3, but fading O2 2 lPM Irreg HR zofran given for nausea A-fib Kaur in place Independent at baseline R arm IV infiltrated #20 in LAC Report received from: Marisol Amaro RN
--- NOTE | 2023-04-07 18:44 | NUR.NOTE ---
Received pt from ED staff approx 1415, 500 ml bolus of NS running, 2nd one since admit for low BPs. Pt received three 250ml boluses of LR between then and 1829 when she was transferred to the ICU. Dr. Johnson used US to view the heart. Gave two metoprolol IV push 2.[address], times: 1806 & 1824. +Nursing Note:
[2023-04-07] MEDS: Norepinephrine in D5W 8 MG/250 ML BAG 18.75 MG IV (19:03)
--- NOTE | 2023-04-07 19:45 | DI.RAD_ITS ---
Exam(s) XR PORTABLE CHEST AP EXAM: XR PORTABLE CHEST AP CLINICAL HISTORY: CVC line placement TECHNIQUE: 2D digital imaging was performed. COMPARISON: CR XR CHEST 2V PA LATERAL from 06/14/[address] ABDOMEN PELVIS W from 04/07/2023 CR XR PORTABLE CHEST AP from 04/07/2023 FINDINGS: There is central venous catheter has been inserted via the right internal jugular. The tip lies in the upper right atrium. Pacemaker again noted. LUNGS: Suboptimal evaluation due to poor pulmonary inflation. Increased densities are noted at the r ight lung base. Mild pulmonary vascular prominence and coarsening of interstitial markings on could indicate mild pulmonary edema. HEART: Normal size. AORTA: Normal diameter. BONES: Unremarkable for age. Soft tissues: Unremarkable. IMPRESSION: Tip of central line lies in the upper right atrium. Right basilar infiltrate. Question of mild pulm onary edema. DATA REPOSITORY: RADIATION DOSE DELIVERED:
[2023-04-07 19:55] LABS: MRSA PCR Negative (Negative)
--- NOTE | 2023-04-07 20:00 | DI.RAD_ITS ---
Exam(s) XR PORTABLE CHEST AP EXAM: XR PORTABLE CHEST AP CLINICAL HISTORY: Post line insertion TECHNIQUE: 2D digital imaging was performed. COMPARISON: CR,XR XR PORTABLE CHEST AP from 04/07/2023 FINDINGS: Limited exam due to positioning. The central line has been pulled back and the tip now lies in the d istal superior vena cava. No pneumothorax. DATA REPOSITORY: RADIATION DOSE DELIVERED:
[2023-04-07 20:28] LABS: Lab Add On Test DONE
--- NOTE | 2023-04-07 20:36 | W.EVENT ---
Date of service: 04/07/23 Time of Service: 17:35 Event Note: Called to see the patient urgently because of refractory hypotension despite IV fluids. I presented to the bedside along with my nurse practitioner who had been managing the patient earlier in the day. Patient denied any chest pain or shortness of breath. With systolic pressures 70s and 80s despite IV fluid resuscitation. Patient had 1250 mL total IV fluids prior to my arrival. We gave her another 250 mL fluid bolus which reached her 30 mL/kg ideal body weight sepsis guidelines. As she was still hypotensive I did a bedside [id number] ultrasound. Her IVC was not collapsing greater than 50% with IVC was less than 2 cm in diameter. We gave her another fluid bolus transferred to the intensive care unit where performed calculation of her volume time and no growth to her LVOT. She was noted to be in rapid atrial fibrillation during her hypotensive event and she received two 2.5 mg IV pushes of Lopressor to get her heart rate down. Systolic pressure stabilized in the 80s at the time we got her into the intensive care unit. However despite further fluid boluses she remained hypotensive and required norepinephrine drip although her atrial fibrillation rate was now controlled in the high 90s to low 100s. Patient is currently in the intensive care unit on norepinephrine drip with systolic blood pressures in the 120s heart rate of 98. CVC line was placed in the right internal jugular vein. See separate procedure note. Bedside echo shows normal systolic LV and RV function with LVH. Time Spent with Patient Time spent in critical care(minutes): 180 Time Spent Included: Performing procedures not included in c.c time, Coordination of care, Chart review, Documenting critically ill care, Time at immediate bedside and Discussing critically ill care with other medical staff
--- NOTE | 2023-04-07 20:55 | ROE_ITS ---
Date of service: 04/07/23 Time of Service: 19:04 Operative Note Operative Note DATE OF PROCEDURE: 04/07/23 PRE-OP DIAGNOSIS: Hypotension, sepsis POST-OP DIAGNOSIS: same PROCEDURE: Right internal jugular central venous triple-lumen catheter SURGEON: Edin Johnson ANESTHESIA TYPE: Local By Surgeon Refer to Anesthesia Record ESTIMATED BLOOD LOSS: 5 ([place]) PATHOLOGY: none sent COMPLICATIONS: None Patient was transported to: ICU Procedure Description: After obtaining verbal informed consent including discussion of indications, alternative treatments, potential complications patient consented to placement of triple-lumen central venous catheter. Timeout was taken to verify correct patient correct procedure and correct site. Patient was prepped and draped in sterile fashion after I had gowned and gloved and masked in a sterile fashion. Using the materials from an [employer] [place] 3 lumen 20 cm Blue Plus Pressure Injectable catheter along pressure injectable aero guard Blue +3 lumen CVC catheter kit. 5 mL of 1% lidocaine was used to locally anesthetize the skin and subcutaneous tissue and using SonArdelyx PX L 12-3 trans linear ultrasound probe which had been covered in sterile probe cover to identify the internal jugular vein. The vein was cannulated using the enclosed 18-gauge by 2-1/2 inch radiopaque over 20-gauge RW introducer needle.. Needle tip was followed into the internal jugular vein under ultrasound guidance. Dark red nonpulsatile blood flow was obtained through the syringe. Using Seldinger technique the enclosed spring wire guide with flexible J-tip guidewire was advanced through the needle and the needle was withdrawn. Small incision was used with the enclosed scalpel to allow introduction of the vessel dilator. After dilation of vessel slow dark red nonpulsatile blood flow occurred through the site. Vessel dilator was withdrawn and the previously filled triple-lumen catheter was advanced over the guidewire to the level of 15 cm at the skin. Guidewire was withdrawn. Blood flow was withdrawn through each of the ports and the triple- lumen catheter and then flushed a second time. Catheter was then secured at the skin incision site using the enclosed second site adjustable hub fastener and catheter clamp which were then sutured to the skin. Bio dot was applied over the catheter entry site and a dry sterile dressing with a clear window was applied over the entry site and catheter. [id number] ultrasound was done of her lungs to ensure there was no evidence for pneumothorax. Bubble study was performed which also confirmed proper placement of the catheter in the IVC with bubbles entering the right atrium from the SVC. Stat portable chest x-ray was performed and results are pending. I reviewed the x-ray myself the catheter tip appears to be at the SVC right atrial junction possibly in the RA, therefore under sterile technique, the catheter was repositioned by pulling the catheter back 5 cm and was resutured to the skin using the clamp locks and sutures. Repeat CXR was performed and demonstrated appropriate placement. Patient tolerated procedure well with no apparent complications.
--- NOTE | 2023-04-07 20:58 | DI.VRAD_ITS ---
PROCEDURE INFORMATION: Exam: XR Chest Exam date and time: 04/07/2023 8:15 PM Age: 83 years old Clinical indication: Device placement; Other: Cvc line placement TECHNIQUE: Imaging protocol: Radiologic exam of the chest. Views: 1 view. COMPARISON: CR XR PORTABLE CHEST AP 04/07/2023 8:00 PM FINDINGS: Tubes, catheters and devices: There is a right central line catheter in place. The tip is seen at the distal SVC level. Left-sided double lead pacemaker unchanged. Lungs: Hazy airspace opacification right lung base again noted, atelectasis versus consolidation. There are some coarse left lower lobe retrocardiac markings as well. Pleural spaces: Unremarkable. No pleural effusion. No pneumothorax. Heart/Mediastinum: Unremarkable. No cardiomegaly. Bones/joints: Unremarkable. IMPRESSION: Central line catheter tip distal SVC. Dictated and Authenticated by: Lucy Mills MD. Ordering:[facility] Alex Jesus MD
--- NOTE | 2023-04-07 21:00 | DI.VRAD_ITS ---
PROCEDURE INFORMATION: Exam: XR Chest Exam date and time: 04/07/2023 8:00 PM Age: 83 years old Clinical indication: Device placement; Other: Cvc line placement TECHNIQUE: Imaging protocol: Radiologic exam of the chest. Views: 1 view. COMPARISON: CR XR PORTABLE CHEST AP 04/07/2023 9:31 AM FINDINGS: Tubes, catheters and devices: A right central line catheter is in place. The tip is seen at the distal SVC/right atrial level. Double lead pacemaker again noted. Lungs: Right lung base airspace opacification appears slightly worse compared to earlier exam, atelectasis versus consolidation. There is some interval development of some coarse left lung base increased parenchymal markings. Pleural spaces: No pneumothorax after line placement. Heart/Mediastinum: Unremarkable. No cardiomegaly. Bones/joints: Unremarkable. Other findings: Coarse calcification at the right glenohumeral level, presumed loose body. IMPRESSION: 1. Right central line catheter tip at the distal SVC/right atrial level. 2. Bibasilar airspace opacity, atelectasis versus early consolidation. Follow-up to assess clearing recommended. Dictated and Authenticated by: Lucy Mills MD. Ordering:[facility] Alex Jesus MD
[2023-04-07 21:01] LABS: Procalcitonin < 0.1 ng/mL
[2023-04-07] MEDS: Mometasone 220 MCG 14 DOSE INHALER 2 PUFF IH (21:08)
[2023-04-07] MEDS: guaiFENesin 600 MG TABCR PO (21:15)
[2023-04-07] MEDS: Apixaban 5 MG TAB PO (21:16)
[2023-04-07] MEDS: Acetaminophen 500 MG TAB 1000 MG PO (21:16)
[2023-04-07] MEDS: Docusate Sodium 100 MG CAP PO (21:16)
[2023-04-07] MEDS: Amiodarone in Dextrose 360 MG/200 ML BAG 33.3 MG IV (22:18)
[2023-04-07] MEDS: Normal Saline Flush 10 ML SYR IVP (23:09)
[2023-04-08] VITALS (173 sets, daily range): BP systolic 61–139; BP diastolic 31–106; PULSE 56–139; RESP 3–30; TEMP 36.3–37.7; O2SAT 88–99
[2023-04-08] MEDS: Normal Saline-STERILE FIELD 0.9% 10 ML SYR (00:08)
[2023-04-08] MEDS: Hydrocortisone SOD SUC. 100 MG VIAL IVP (00:22)
[2023-04-08] MEDS: DOXYCYCLINE 100 MG in Normal Saline 100 ML IVPB ×3 (00:23→22:01)
[2023-04-08] MEDS: Pantoprazole 40 MG VIAL IVP ×2 (00:38→22:01)
[2023-04-08] MEDS: Normal Saline Flush 10 ML SYR IVP ×5 (00:38→23:42)
[2023-04-08] MEDS: CEFEPIME 2 GM in Normal Saline 100 ML IVPB ×3 (00:56→19:50)
[2023-04-08] MEDS: Norepinephrine in D5W 8 MG/250 ML BAG 33.75 MG IV (01:58)
[2023-04-08] MEDS: VANCOMYCIN/WATER (PEG) 1 GM/200 ML BAG IVPB ×2 (03:55→22:02)
[2023-04-08] MEDS: Levothyroxine 100 MCG TAB PO (06:04)
[2023-04-08 06:24] LABS: Abs Immature Grans 0.38 10^3/uL (0.0-0.06); Absolute Lymphocyte Count 0.59 10^3/uL (1.2-3.4); Basophils % 0.5; Eosinophils % 0.1; HCT 39.5 % (36.0-46.0); HGB 13.4 g/dL (11.2-15.7); Immature Grans % 1.3; MCH 31.9 pg (27.0-33.0); MCHC 33.9 % (32.0-36.0); MCV 94 fL (80-95); MPV 10.9 fL (8.0-11.0); Monocytes % 3.3; Neutrophils % 92.8; Platelet Count 207 10^3/uL (130-400); RDW 12.7 % (11.7-14.6); RDW-SD 43.9 fL
[2023-04-08 06:35] LABS: Absolute Basophil Count 0.15 10^3/uL (0.0-0.2); Absolute Eosinophil Count 0.03 10^3/uL (0.0-0.7); Absolute Monocyte Count 0.97 10^3/uL (0.1-0.8); Absolute Neutrophil Count 27.33 10^3/uL (1.2-6.7); WBC 29.45 10^3/uL (4.4-10.8)
[2023-04-08 06:47] LABS: ALT 17 U/L (14-59); AST 19 U/L (15-37); Albumin 2.6 g/dL (3.4-5.0); Alkaline Phosphatase 62 U/L (46-116); Anion Gap 11.9 mmol/L (3-11); BUN 13 mg/dL (7-18); Bilirubin, Total 0.8 mg/dL (0.2-1.0); CO2 25.1 mmol/L (21.0-32.0); Calcium 8.5 mg/dL (8.5-10.1); Chloride 106 mmol/L (98-107); Estimated GFR 55.55 (mL/min/1.73m2); Glucose 249 mg/dL (74-106); Potassium 3.1 mmol/L (3.5-5.1); Sodium 143 mmol/L (136-145); Total Protein 6.2 g/dL (6.4-8.2)
[2023-04-08 06:49] LABS: Troponin I 111 ng/L (<or=60)
[2023-04-08 07:10] LABS: Diff Comment Diff Reviewed; RBC Morphology Normal
[2023-04-08] MEDS: Albuterol/Ipratropium 3 ML UPD VIAL UPD ×4 (08:08→19:41)
[2023-04-08] MEDS: Insulin Glargine 300 UNITS/3 ML PEN 10 UNITS SC (08:15)
[2023-04-08] MEDS: Insulin Aspart 300 UNITS/3 ML PEN SC ×3 (08:19→16:46)
[2023-04-08] MEDS: Acetaminophen 500 MG TAB 1000 MG PO ×3 (08:41→19:51)
[2023-04-08] MEDS: guaiFENesin 600 MG TABCR PO ×2 (08:43→19:50)
[2023-04-08] MEDS: Docusate Sodium 100 MG CAP PO ×2 (08:43→19:51)
[2023-04-08] MEDS: Apixaban 5 MG TAB PO ×2 (08:44→19:51)
[2023-04-08] MEDS: Hydrocortisone SOD SUC. 100 MG VIAL 50 MG IVP ×3 (08:50→23:43)
--- NOTE | 2023-04-08 09:24 | POCUS_ITS ---
Pocus Exam Limited Cardiac Exam DATE OF EXAM: 04/07/23 REASON FOR EXAM: Hypotension and Septic Shock VISUALIZED STRUCTURES: four chambers, LVOT, aortic valve, mitral valve, Interventricular septum and IVC VIEW OBTAINED: Apical 4-Chamber, Parasternal long-axis, Parasternal short-axis and Subxiphoid PERTINENT FINDINGS/IMPRESSION: no IVC inspiratory collapsability, No LV dysfunction, No pericardial effusion, No plethoric IVC, No RV dilation and No RV dysfunction INCIDENTAL FINDINGS: Bedside [id number] ultrasound was performed to assess LV and RV function as well as to evaluate fluid responsiveness. Echocardiogram was performed including apical 4 and 5 chamber view as well as parasternal long axis parasternal short axis and subxiphoid view as well as views of the IVC. Patient had grossly normal LV and RV size and function with evidence of LVH. VTI performed with passive leg raise while the patient was receiving a fluid bolus was 19.8 cm on average (patient was in atrial fibrillation therefore for national account representative velocity time were obtained) and her post passive leg raise and fluid challenge demonstrated a VTI of 21.9 cm (over and average of 5 national account representative VTI curves). This represents an increase of 10.4% suggesting that the patient is still fluid responsive. Subxiphoid view of the heart was obtained and subsequently rotated to provide the long axis view of the IVC d emonstrating maximal dilatation 1.86 cm with an inspiratory collapse of 27.5%. This would suggest mildly increased right atrial pressure of 8 cm. Cautious judicious use of fluids is advised. Exam complete
[2023-04-08] MEDS: Ketoconazole 2% CREAM 15 GM TUBE TP (10:10)
--- NOTE | 2023-04-08 10:10 | PGE_ITS ---
Date of Service Date of service: 04/08/23 Time of Service: 10:10 Assessment and Plan Assessment and plan (1) Septic shock: Status: Acute Assessment and plan: - Patient had septic shock criteria with heart rate greater than 90, respiratory rate greater than 20, source of infection being pneumonia and ongoing hypotension despite adequate fluid resuscitation -Please see Dr. Dawson's event note overnight showing details -However, patient required transfer to the ICU and placement of right IJ central line and required up to 20 mics of Levophed -Currently on 14 mics of Levophed, continue to wean with goal mean arterial pressure greater than 65 -Continue vancomycin and cefepime -Follow-up blood and sputum cultures (2) Pneumonia: Status: Acute Assessment and plan: - Source of infection as noted above (3) Acute respiratory failure with hypoxia: Status: Acute Assessment and plan: - Likely secondary to pneumonia and septic shock as noted above -Currently on 1 L nasal cannula to maintain oxygen saturation greater than 92% -Wean as tolerated with goal oxygen saturation greater than 92% (4) Chronic atrial fibrillation with RVR: Status: Acute Assessment and plan: - Patient was in rapid A-fib last night likely secondary to hypotension and septic shock as noted above -Responded well to administration of IV Lopressor -Heart rate currently between 80 and 100 -Given that patient is on significant Levophed, will hold off on restarting her p.o. Lopressor and will give as needed IV doses at this time until needed -Will restart her home Lopressor once significant decrease and Levophed dosage (5) Diastolic heart failure: Status: Acute Assessment and plan: - Holding patient's home diuretic given that she is hypotensive and continues to be on Levophed Subjective Subjective Interval history since last seen: Patient states that she feels significantly better as compared to yesterday. She appreciates the care that she has been receiving and has no complaints or concerns at this time. Exam Narrative Exam Narrative: Well-appearing older female sitting up in the chair no acute distress, A&O x 4 right IJ venous cannula in place without surrounding erythema or drainage, heart irregularly irregular, rate between 80 and 90, lungs coarse breath sounds in the right middle and lower lobes, abdomen soft, nontender nondistended Objective Last Vital Signs Temp 98.8 F 04/08/23 07:35 Pulse 93 H 04/08/23 08:09 Resp 25 H 04/08/23 08:09 BP 100/75 04/08/23 08:09 Pulse Ox 97 04/08/23 09:10 Laboratory Results - last 24 hr 04/07/23 04/07/23 04/07/23 07:50 13:10 13:15 WBC 12.07 H RBC 4.13 Hgb 13.4 Hct 38.7 MCV 94 MCH 32.4 MCHC 34.6 RDW 12.4 Plt Count 223 MPV 10.7 Immature Gran % 0.6 Neutrophils % 76.4 Lymphocytes % 11.5 Monocytes % 11.1 Eosinophils % 0.2 Basophils % 0.2 Nucleated RBC % 0.0 Absolute Neutrophils 9.21 H Absolute Lymphocytes 1.39 Absolute Monocytes 1.34 H Absolute Eosinophils 0.03 Absolute Basophils 0.03 RBC Morphology VBG Lactate 1.9 H Sodium 136 Potassium 3.5 Chloride 98 Carbon Dioxide 29.1 Anion Gap 8.9 BUN 12 Creatinine 0.8 Est GFR (CKD-EPI 2020) 72.61 Glucose 188 H Calcium 9.2 Total Bilirubin 1.1 H AST 14 L ALT 20 Alkaline Phosphatase 60 Troponin I NT-Pro-B Natriuret Pep 92 Total Protein 7.0 Albumin 3.3 L Lipase 13 L Procalcitonin < 0.1 Urine Color Yellow Urine Clarity Clear Urine pH 6.0 Ur Specific Mabel 1.010 Urine Protein Negative Urine Ketones Negative Urine Blood Large H Urine Nitrite Negative Urine Bilirubin Negative Urine Urobilinogen 0.2 Ur Leukocyte Esterase Negative Urine RBC 20-50 H Urine WBC Negative Ur Epithelial Cells Rare Urine Crystals Negative Urine Bacteria Negative Urine Casts Negative Urine Mucus Negative Ur Culture Indicated? No Urine Glucose Negative MRSA (TEM-PCR) Negative Add-On Test Request 04/07/23 04/07/23 04/08/23 16:20 Unknown 05:35 WBC 29.45 H* RBC 4.20 Hgb 13.4 Hct 39.5 MCV 94 MCH 31.9 MCHC 33.9 RDW 12.7 Plt Count 207 MPV 10.9 Immature Gran % 1.3 Neutrophils % 92.8 Lymphocytes % 2.0 Monocytes % 3.3 Eosinophils % 0.1 Basophils % 0.5 Nucleated RBC % 0.0 Absolute Neutrophils 27.33 H Absolute Lymphocytes 0.59 L Absolute Monocytes 0.97 H Absolute Eosinophils 0.03 Absolute Basophils 0.15 RBC Morphology Normal VBG Lactate Sodium 143 Potassium 3.1 L Chloride 106 Carbon Dioxide 25.1 Anion Gap 11.9 H BUN 13 Creatinine 1.0 Est GFR (CKD-EPI 2020) 55.55 Glucose 249 H Calcium 8.5 Total Bilirubin 0.8 AST 19 ALT 17 Alkaline Phosphatase 62 Troponin I 111 H* NT-Pro-B Natriuret Pep Total Protein 6.2 L Albumin 2.6 L Lipase Procalcitonin Urine Color Urine Clarity Urine pH Ur Specific Mabel Urine Protein Urine Ketones Urine Blood Urine Nitrite Urine Bilirubin Urine Urobilinogen Ur Leukocyte Esterase Urine RBC Urine WBC Ur Epithelial Cells Urine Crystals Urine Bacteria Urine Casts Urine Mucus Ur Culture Indicated? Urine Glucose MRSA (TEM-PCR) Negative Add-On Test Request DONE Time Spent with Patient Time Spent with Patient: >50 minutes (60 minutes taking care of critically ill patient with right IJ central line requiring high doses of IV Levophed) Time was spent: preparing to see the patient(eg.review tests), obtaining and/or reviewing separately otained hiistory, ordering medications,tests, procedures, referring, communicating with other health career development engineer, indepentently interpreting results, counseling the patient and care coordination
[2023-04-08] MEDS: Multivitamin TAB 1 TAB PO (10:11)
[2023-04-08] MEDS: Potassium Chloride 20 MEQ TABCR PO (10:11)
[2023-04-08] MEDS: Norepinephrine in D5W 8 MG/250 ML BAG 20.625 MG IV (10:43)
[2023-04-08] MEDS: Potassium Chloride 20 MEQ TABCR 40 MEQ PO (11:34)
[2023-04-08] MEDS: Metoprolol 12.5 MG TAB PO ×2 (12:23→19:51)
--- NOTE | 2023-04-08 12:54 | NUR.NOTE ---
Heart rate much improved and is now in the low 100's after administration of 12.5 of Metoprolol. BP map is 67. Norepinephrine remains running at 5mcg/min.Nursing Note:
--- NOTE | 2023-04-08 14:03 | INITIAL_ITS ---
Date of service: 04/08/23 Time of Service: 14:03 Care Management Initial Assmt Initial Assessment REASON FOR HOSPITALIZATION:: Pneumonia PREVIOUS FUNCTIONAL STATUS/SOCIAL/FAMILY SUPPORTS:: Elaina is retired and lives alone at the [facility]. Elaina shares that she's lived there for the past 8 years and feels very supported by the friends she's made. Elaina is independent at baseline and uses a cane PRN. She has a car but drives infrequently. Her friends typically transport her otherwise she uses [facility]. CURRENT FUNCTIONAL STATUS:: ICU transfer for septic shock; continues to require closely monitoring at this time. ADVANCE DIRECTIVES:: None on file. Has patient been provided with info about the portal/API?: Yes Did the patient sign up for the portal?: No CODE STATUS:: Full Code INSURANCE COVERAGE / FINANCIAL ISSUES:: [facility]. Medicare CURRENT HOME/COMMUNITY SERVICES/EQUIPMENT:: [employer] PRIMARY CARE PHYSICIAN:: Vicenta Freed POTENTIAL DISCHARGE NEEDS:: Follow up appointments. PATIENT/FAMILY EDUCATION NEEDS:: Review discharge instructions, limitations, medications and plan to follow up with community providers. Discuss ask me three and goals of self care. ANTICIPATED BARRIERS TO DISCHARGE:: None identified at this time; patient is COVID positive. TRANSPORTATION:: Private vehicle. PLAN:: Anticipate Elaina will discharge home when medically ready per provider, she will be evaluated for additional services prior to discharge. She will transport via private vehicle with her friend or via [facility]. She will follow up with community providers and discharge plan of care as prescribed. PFSH All Active Problems (Updated 04/08/23 @ 10:16 by Joe Collier MD) Acute respiratory failure with hypoxia (Acute) Diastolic heart failure (Acute) Chronic atrial fibrillation with RVR (Acute) Septic shock (Acute) At risk for sepsis (Acute) Sepsis associated hypotension (Acute) Nausea and vomiting (Acute) Discharge planning issues (Acute) On deep vein thrombosis (DVT) prophylaxis (Acute) SIRS (systemic inflammatory response syndrome) (Acute) Pneumonia (Acute) Sepsis (Acute) Fever (Acute) Ingrown toenail (Acute) Onychomycosis (Acute) PVD (peripheral vascular disease) (Chronic) Venous insufficiency (Acute) Sacroiliac joint dysfunction of right side (Acute) Hiatal hernia (Chronic) 01/25/23 5cm ([facility]) Lipedema of lower extremity (Acute) nodular, symm, tender inner upper calves Nail dystrophy (Acute) Hypokalemia (Acute) Critically low, High risk medication use (Acute) Amiodarone since July, evaluating for tox (06/20/22 [place] [facility] 2' SOB w/NEG CTA & no improvement post diuresis (furosemide 40) SOB (shortness of breath) (Acute) Diabetes mellitus due to underlying condition, uncontrolled, with hyperglycemia (Acute) A1C rise due to inactivity 2' back/knee pain & steroid use.. winter 2021 Insulin dose changed (Acute) Elevated serum free T4 level (Acute) high TSH, High T4, 03/2022 ... Hx low TSH and high T4 (08/2021) Elevated TSH (Acute) Lymphedema (Acute) nonpitting edema -- seems lymphedema -- appreciate pt eval Atrial tachycardia (Acute) per Cardiology, [facility] .. Admitted post xfer from [facility] ED (08/08/21). EF 50%. Amiodarone started; Flecainide stopped. Amiodarone stopped 2022 concern for pulm tox Atrial fibrillation (Acute 07/06/11) normal echo and cath 2008; flecanide Rx; apixiban; echo 09/2013 EF 60%.. Atrioventricular block (Acute 07/07/12) pacemaker placement 12/04/2013; 5 sec asystoles last interrogation, 03/2017. Pacemaker (Acute 09/16/17) Sees DARNELL Tejada ([facility]). Dual lead Medtronic pacemaker Adapta .. Placed 2013, Dr. Edin Robles. 99Medtronic dual lead pacemaker implanted 12/04/2013 .. Adapta [id number] .. RA Medtronic [id number], 11/2013.. RV [id number] 12/04/2013)) Tachycardia (Acute) Type 2 diabetes mellitus (Acute) A1C jump 2' limited ambulation & steroid use. [ ] Insulin due to intolerance of PO Rx, ik, 03/2022.. Recent A1C increase, from pre-diabetes to DM this past year.. Edema (Acute) LE edema , R>L .. notable, possibly 2' Jardiance intolerance, but possible lymphedema (?) Medication intolerance (Acute) Unable to tolerate Jardiance (candidiasis!), Metformin. Dysphagia, unspecified (Acute 07/07/12) EGD KD: mild esophagitis 10/[address] Ragsdale 09/23/[address] Duncan, [facility], [place], [place]. Impression: Gerd Dysphagia. Rule out secondary to esophageal ulcer,dysmotility, or from perhaps a failing Singh. recommeded: Upper GI Gerd protocaol discussed w/ pt. panel 2,B12 If pt continues sx, may want to repeat upper endoscopy. Plans to see her back in [place]oll[place]. Gastroesophageal reflux disease (Acute 07/07/12) Managed with PPI for years, worsening x 2-3 months. Now associated with LUQ tenderness, 05/26/17. []H.pylori [] U/S LUQ ik IMPROVED with weight loss, 06/02.19, ik EGD rescheduled with Dr. Escobar (2' [place] not yet taking appts @ [facility]), 05/26/17 .. Consulted, EGD sched for 06/29/17. note: s/p Singh, hernia repair, and esoph dilation (2013) 10/29/21 GI visit with f/u in 6w Atrophic gastritis without mention of hemorrhage (Acute 07/07/12) History of hiatal hernia (Acute) Reactive airway disease (Chronic) Medical History Arthropathy of left knee Arthritis of left knee s/p L TKA 05/26/22 Failed fundoplication Pyrosis Sensorineural hearing loss Lesion of face or BCCA left lateral canthus 09/14/[address] Dillon 09/22/21 sutures removed Left knee pain DEPO MEDROL 01/14/22 Arthrocentesis @ [facility] (during hosp stay for atrial tach), NEG.. referred to local ortho ([facility]). High risk medications (not anticoagulants) long-term use Amiodarone started, 07/2021 (after years on flecainide).. [ ] Ophtho, EP, Echo, PFTs .. short-term lasix. Cardiomyopathy Due to atrial tachycardia.. xferred to [facility], PM reprogrammed. Amiodarone replacing flecainide. Low-dose diuretics (see 08/11/21 [facility] Cardio note).. Vulvovaginal candidiasis 2' Jardiance .. trial monostat or diflucan . STOP Jardiance if janae returns. Esophagitis determined by biopsy Hypomagnesemia Noted @ ED, 02/2021 .. replenished. Monitor [ ] Macular pucker Leg edema Leg weakness With standing .. Hx lumbar stenosis .. Hx spinal injection (?) Muscle spasm of left shoulder area Trapezius MM Spasm .. Deformity of toenail Right lumbar radiculopathy Spinal stenosis of lumbar region High risk medications (not anticoagulants) long-term use Flecainide - started by Dr. Douglass Hot flashes Hot Flashes x 6 mos, 06/13/19. Piriformis syndrome of right side Pelvic pain (02/07/13) Trochanteric bursitis, right hip (05/19/16) Thyroid nodule (01/28/15) 01/01/15 US 4mm nodule isthmus 05/15/15 US 4.5 nodule isthmus, ?7x5 nodule right Sensorineural hearing loss, bilateral (12/28/13) Primary osteoarthritis of right knee (01/10/17) s/p RT TKR Fall 2017 Postnasal drip (01/09/15) Osteoarth NOS-unspec (07/06/11) Neurogenic pain of right lower extremity (09/19/15) Multinodular goiter (12/19/15) Impaired glucose tolerance (03/10/12) Hypothyroidism (01/02/13) TSH 2.43 (05/2017) vs. >9 (02/2017). [facility] [place] Hyperlipidemia (07/07/12) Family hx-breast malignancy (11/13/12) SISTER IN 60s Exertional dyspnea (01/28/15) Essential hypertension (01/18/13) FRS 13% .. 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 [facility] q6m x1 year, then annually. --[facility] 06/2016 Shakira Diaz MD Post-radiation association with new abd pain (?), ik, 05/26/17 Controlled type 2 diabetes mellitus without complication, without long-term current use of insulin (12/02/16) POOR CTL, 01/2021 (A1C 7.6) .. A1C goal 7.5 ... 7.1 today, 08/07/20. 6.8/6.9 in 11/2016. A1C 6.5 post weight loss and focused effort on reducing carbs/sweets. 06/02/18, ik A1C remains @ 6.5 08/2018, good job! Chronic eczematoid otitis externa of both ears (01/22/16) Dr Jeffrey Cardenas Asthma (01/18/13) possible asthma; PFTs normal 04/27/2012.07/2013 Sensorineural hearing loss of both ears Urge incontinence History of postmenopausal bleeding Symptomatic bradycardia Surgical History History of total left knee replacement (TKR) (05/26/22) History of total knee arthroplasty (05/26/22) Status post right knee replacement Dr. Del Cid, Ortho. She is happy with knee, able to step down from sidewalk w/o fear per 03/02/18 appt discussion. COntinues to do well; seeing ortho for possible neuropathic pain (outer rt calf). upper GI Series (10/05/17) for sx of epigastric dysphagia,GERD. Done by Dr. Duncan. Impression: Moderate sized Hiatal Hernia. Marked gastroesophageal reflux. sentinal lymph node dissection (07/01/16) NEG for mets from endometrium Replacement of total knee joint (12/03/16) R knee Dr Del Cid Pacemaker (12/04/13) Hyseterectomy, Total Laparoscopic w/ BSO (07/01/16) +Endometrial cancer Hernia, hiatal (banding) EGD - MAC (06/29/17) Colonoscopy - IV Sedation (03/17/16) Cholecystectomy Extraction of cataract B/L Cardiac Cath, 2008 History of Surgical Procedure a. Cholecystectomy. b. Bilateral cataract surgery. c. Hiatal hernia repair 2008. d. Esophagus stretching 2013 - Dr. Ragsdale. e. Pacemaker 12/04/2013 Family History Mother , old age at age 98. No problems noted. Father , Heart disease at age 64. Heart disease MD Sister , Colon Ca Personal history of malignant neoplasm Sister , Heart problems at age 72. Personal history of malignant neoplasm Breast cancer, dx'ed in her 60s Heart disease Sister Hypertensive disorder, systemic arterial Diabetes Sister Diabetes Sister Hypertensive disorder, systemic arterial Brother , Parkinson's at age 75. Personal history of malignant neoplasm Brother Parkinson's disease Brother , Heart condition at age 62. Hypertensive disorder, systemic arterial Diabetes Brother Hypertensive disorder, systemic arterial Diabetes Social History Smoking/Tobacco Use Status: Never Smoking risk assessment performed?: Yes Alcohol Intake: never Drug use: Never Substance use type: does not use Adopted: No Foster care: No Housing: apartment Number of Children: 0 number of grandchildren: 0 Communication Needs: Corrective Lenses current occupation: retired from [employer] Pets and animals: No Current gender identity: female What is your relationship status?: Panel score (0-1 are the most socially isolated patients): 0 Seatbelt use: always Working smoke detector in home: Yes Fire extinguisher in home: Yes Carbon monox detector in home: Yes Firearms in home: No Do you feel safe at home: Yes Do you feel safe in your relationship?: Yes
[2023-04-08] MEDS: Lactated Ringers 500 ML IV (17:58)
[2023-04-08] MEDS: Mometasone 220 MCG 14 DOSE INHALER 2 PUFF IH (19:38)
[2023-04-08 21:15] LABS: Legionella Ag Detection Urine Negative (Negative)
[2023-04-09] VITALS (55 sets, daily range): BP systolic 81–122; BP diastolic 45–92; PULSE 68–92; RESP 12–28; TEMP 36.6–37; O2SAT 93–100
[2023-04-09 04:59] LABS: HCT 31.8 % (36.0-46.0); HGB 10.9 g/dL (11.2-15.7); MCH 32.5 pg (27.0-33.0); MCHC 34.3 % (32.0-36.0); MCV 95 fL (80-95); MPV 10.6 fL (8.0-11.0); Platelet Count 140 10^3/uL (130-400); RBC 3.35 10^6/uL (3.93-5.22); RDW 12.9 % (11.7-14.6); RDW-SD 45.1 fL
[2023-04-09 05:18] LABS: ALT 16 U/L (14-59); AST 16 U/L (15-37); Alkaline Phosphatase 52 U/L (46-116); BUN 14 mg/dL (7-18); Bilirubin, Total 0.6 mg/dL (0.2-1.0); CREATININE 0.8 mg/dL (0.55-1.02); Calcium 8.6 mg/dL (8.5-10.1); Chloride 108 mmol/L (98-107); Estimated GFR 72.61 (mL/min/1.73m2); Glucose 200 mg/dL (74-106); Sodium 140 mmol/L (136-145); Total Protein 5.3 g/dL (6.4-8.2)
[2023-04-09] MEDS: Levothyroxine 100 MCG TAB PO (06:39)
[2023-04-09] MEDS: Insulin Glargine 300 UNITS/3 ML PEN 10 UNITS SC (07:33)
[2023-04-09] MEDS: Insulin Aspart 300 UNITS/3 ML PEN SC ×3 (07:35→16:28)
[2023-04-09] MEDS: Albuterol/Ipratropium 3 ML UPD VIAL UPD ×2 (07:52→13:04)
[2023-04-09] MEDS: CEFEPIME 2 GM in Normal Saline 100 ML IVPB ×2 (07:52→20:11)
[2023-04-09] MEDS: Polyethylene Glycol 3350 17 GM PACKET PO (07:56)
[2023-04-09] MEDS: Acetaminophen 500 MG TAB 1000 MG PO ×3 (08:15→20:12)
[2023-04-09] MEDS: guaiFENesin 600 MG TABCR PO ×2 (08:16→20:11)
[2023-04-09] MEDS: Apixaban 5 MG TAB PO ×2 (08:16→20:14)
[2023-04-09] MEDS: Docusate Sodium 100 MG CAP PO (08:16)
[2023-04-09] MEDS: Metoprolol 12.5 MG TAB PO ×2 (08:17→20:12)
[2023-04-09] MEDS: Multivitamin TAB 1 TAB PO (08:17)
[2023-04-09] MEDS: Potassium Chloride 20 MEQ TABCR PO (08:17)
[2023-04-09] MEDS: Ketoconazole 2% CREAM 15 GM TUBE TP (08:24)
[2023-04-09] MEDS: Hydrocortisone SOD SUC. 100 MG VIAL 50 MG IVP (08:34)
[2023-04-09] MEDS: Normal Saline Flush 10 ML SYR IVP ×4 (08:35→23:19)
--- NOTE | 2023-04-09 09:00 | W.PM.PROGNOT ---
Date of Service Date of service: 04/09/23 Time of Service: 09:01 Assessment and Plan Assessment and plan (1) Septic shock: Status: Acute Assessment and plan: - Patient had septic shock criteria with heart rate greater than 90, respiratory rate greater than 20, source of infection being pneumonia and ongoing hypotension despite adequate fluid resuscitation -Please see Dr. Dawson's event note overnight showing details -However, patient required transfer to the ICU and placement of right IJ central line and required up to 20 mics of Levophed early evening 04/07/2023 -Since that time, Levophed has been weaned and discontinued at 4:30 AM on 04/09/2023 -Continue vancomycin and cefepime -Follow-up blood and sputum cultures (2) Pneumonia: Status: Acute Assessment and plan: - Source of infection as noted above (3) Acute respiratory failure with hypoxia: Status: Acute Assessment and plan: - Likely secondary to pneumonia and septic shock as noted above -Has not needed supplemental oxygen since about 5 AM on 04/09/2023 -Wean as tolerated with goal oxygen saturation greater than 92% (4) Chronic atrial fibrillation with RVR: Status: Acute Assessment and plan: - Patient was in rapid A-fib last night likely secondary to hypotension and septic shock as noted above -Responded well to administration of IV Lopressor -Heart rate currently between 80 and 100 -Has restarted home Lopressor p.o. dose and experienced slow heart rates (5) Diastolic heart failure: Status: Acute Assessment and plan: - Holding patient's home diuretic given that she is hypotensive and continues to be on Levophed -Will restart home diuretic based on today's blood pressures Subjective Subjective Interval history since last seen: Patient states that she feels significantly better today. She is encouraged by the fact that she is no longer requiring pressor support or supplemental oxygen. She has no complaints or concerns at this time. Exam Narrative Exam Narrative: Well-appearing older female sitting up in the chair no acute distress, nasal cannula no longer in place, A&O x 4 right IJ venous cannula in place without surrounding erythema or drainage, heart irregularly irregular, rate between 80 and 90, lungs coarse breath sounds in the right middle and lower lobes, abdomen soft, nontender nondistended Objective Last Vital Signs Temp 98.1 F 04/09/23 07:41 Pulse 74 04/09/23 08:22 Resp 20 04/09/23 08:22 BP 116/58 L 04/09/23 07:41 Pulse Ox 98 04/09/23 08:22 Laboratory Results - last 24 hr 04/09/23 04:55 WBC 14.10 H RBC 3.35 L Hgb 10.9 L D Hct 31.8 L MCV 95 MCH 32.5 MCHC 34.3 RDW 12.9 Plt Count 140 MPV 10.6 Sodium 140 Potassium 4.0 Chloride 108 H Carbon Dioxide 25.0 Anion Gap 7.0 BUN 14 Creatinine 0.8 Est GFR (CKD-EPI 2020) 72.61 Glucose 200 H Calcium 8.6 Total Bilirubin 0.6 AST 16 ALT 16 Alkaline Phosphatase 52 Total Protein 5.3 L Albumin 2.0 L Time Spent with Patient Time Spent with Patient: >50 minutes Time was spent: preparing to see the patient(eg.review tests), obtaining and/or reviewing separately otained hiistory, ordering medications,tests, procedures, referring, communicating with other health interior plant caretaker, indepentently interpreting results, counseling the patient and care coordination
[2023-04-09] MEDS: DOXYCYCLINE 100 MG in Normal Saline 100 ML IVPB ×2 (10:18→21:27)
--- NOTE | 2023-04-09 15:19 | NUR.NOTE ---
Patient receives visitors.Nursing Note:
--- NOTE | 2023-04-09 18:20 | NUR.NOTE ---
Right IJ central line is dc'd. Patient tolerates same well. Pressure bandage applied to neck.Nursing Note:
[2023-04-09] MEDS: Mometasone 220 MCG 14 DOSE INHALER 2 PUFF IH (20:15)
[2023-04-10] VITALS (8 sets, daily range): BP systolic 126–148; BP diastolic 62–80; PULSE 66–84; RESP 15–22; TEMP 37–37.5; O2SAT 93–100
[2023-04-10] MEDS: Levothyroxine 100 MCG TAB PO (05:49)
--- NOTE | 2023-04-10 06:19 | NUR.NOTE ---
Nursing Note: pt arrived to floor via wheelchair in stable condition. report received from aram lin. vitals stable, denies sob and pain. denies needs at this time. patient appears to be oriented, answers all questions appropriately. pt states I am ready to go home. pt is now resting in bed. wctm.
[2023-04-10 06:41] LABS: HCT 33.1 % (36.0-46.0); HGB 10.8 g/dL (11.2-15.7); MCH 31.4 pg (27.0-33.0); MCHC 32.6 % (32.0-36.0); MCV 96 fL (80-95); MPV 10.9 fL (8.0-11.0); Platelet Count 154 10^3/uL (130-400); RBC 3.44 10^6/uL (3.93-5.22); RDW 13.1 % (11.7-14.6); RDW-SD 46.8 fL; WBC 9.23 10^3/uL (4.4-10.8)
[2023-04-10 06:57] LABS: Anion Gap 7.7 mmol/L (3-11); BUN 13 mg/dL (7-18); CO2 25.3 mmol/L (21.0-32.0); CREATININE 0.7 mg/dL (0.55-1.02); Calcium 8.8 mg/dL (8.5-10.1); Chloride 110 mmol/L (98-107); Estimated GFR 85.23 (mL/min/1.73m2); Glucose 95 mg/dL (74-106); Potassium 3.9 mmol/L (3.5-5.1); Sodium 143 mmol/L (136-145)
--- NOTE | 2023-04-10 08:27 | DSE_ITS ---
Date of service: 04/10/23 Time of Service: 08:35 DS: Diagnosis Discharge Diagnosis (1) Septic shock: Status: Acute Asessment and Plan: -Patient had septic shock criteria with heart rate greater than 90, respiratory rate greater than 20, source of infection being pneumonia and ongoing hypotension despite adequate fluid resuscitation -However, patient required transfer to the ICU and placement of right IJ central line and required up to 20 mics of Levophed -levophed has been discontinued for >24hrs prior to discharge -initially on vancomycin and cefepime -will DC with additional 2 days of azithromycin and 5 days of cefpodoxime (2) Pneumonia: Status: Acute Asessment and Plan: - Source of infection as noted above (3) Acute respiratory failure with hypoxia: Status: Acute Asessment and Plan: - Secondary to pneumonia and septic shock as noted above -Required up to 2 L nasal cannula -Has been weaned off of supplemental oxygen and been on room air for about 24 hours prior to discharge (4) Chronic atrial fibrillation with RVR: Status: Acute Asessment and Plan: - Continue home beta-scarlet and anticoagulant (5) Diastolic heart failure: Status: Acute Asessment and Plan: - Continue home Lasix Discharge Plan Disposition Patient Disposition: Home Condition: Good Discharge Details Reason For Visit: pneumonia Admit Date/Time: 04/07/23 12:33 Admit Provider: Edin Johnson Attending Provider: Edin Johnson Primary Care Provider: AbdiazizVicenta Hospital Course Hospital Course: Patient initially presented with community-acquired pneumonia but developed septic shock requiring right IJ central line placement and Levophed for roughly 12 hours after being discontinued. She also had acute hypoxic respiratory failure requiring up to 2 L nasal cannula which had also been weaned down to room air roughly 24 hours before discharge. She was also on vancomycin and Zosyn but will be discharged with additional 2 days of azithromycin and 5 days of cefpodoxime. Home Meds and New Rx's Prescriptions: New azithromycin 500 mg tablet 500 mg PO DAILY 3 Days Qty: 3 0RF cefpodoxime 200 mg tablet 200 mg PO BID Qty: 10 0RF Rx Instructions: must administer with a meal/food Continued Mylanta Coat-Cool 1,200 mg-270 mg -80 mg/10 mL suspension 10 ml PO PRN PRN fluticasone propionate [Flovent HFA] 110 mcg/actuation HFA aerosol inhaler 2 puff Inhalation BID Qty: 3 3RF Rx Instructions: Rinse mouth after use Eliquis 5 mg tablet 5 mg PO BID Qty: 180 6RF ketoconazole 2 % cream 1 applic topical DAILY 90 Days Qty: 60 3RF Rx Instructions: Apply to toenails once daily albuterol sulfate [ProAir HFA] 90 mcg/actuation HFA aerosol inhaler 2 puff Inhalation Q4H PRN PRN (Reason: shortness of breath or wheezing) Qty: 3 1RF metoprolol tartrate 25 mg tablet See Rx Instructions .ROUTE .COMPLEX Qty: 90 3RF Dose Instruction: TAKE 1/2 TABLET BY MOUTH TWICE DAILY Rx Instructions: TAKE 1/2 TABLET BY MOUTH TWICE DAILY insulin glargine 100 unit/mL (3 mL) insulin pen 10 unit subcut DAILY Qty: 15 1RF Rx Instructions: Start @ 10units and increase per CDE/PCP direction potassium chloride 20 mEq tablet extended release 20 meq PO DAILY Qty: 90 0RF levothyroxine 100 mcg tablet 100 mcg PO DAILY Qty: 90 3RF multivitamin 1 EACH capsule 1 ea PO DAILY acetaminophen 500 mg tablet 1,000 mg PO Q8H PRN Qty: 90 0RF Rx Instructions: Take two tablets up to every 8 hours as needed for pain docusate sodium [Colace] 100 mg capsule 100 mg PO BID Qty: 30 0RF Patient Comments: patient no longer taking Held furosemide 20 mg tablet 20 mg PO BID MDD 40mg Qty: 180 3RF Hold Instructions: Resume on 04/23/23. hold until seen by PCP Rx Instructions: Re-start @ 2/day No Action (DME) compress.stocking,knee,reg,lrg Misc See Rx Instructions .ROUTE .MEDSUPPLY Qty: 1 0RF Rx Instructions: As directed, 20mmHg-30mmHg (pt unable to tolerate higher pressure) (DME) lancing device with lancets [My Single Pointuch Delica Plus Lanc Dev] Kit See Rx Instructions .ROUTE .MEDSUPPLY Qty: 1 0RF Rx Instructions: Monitor BS 2-3x/wk; E11.9, to achieve A1C under 7%, T 2 DM (DME) blood-glucose meter [OneTouch Verio Meter] Misc See Rx Instructions .ROUTE .MEDSUPPLY Qty: 1 0RF Rx Instructions: Monitor BS 2-3x/wk; E11.9, to achieve A1C under 7%, T 2 DM (DME) OneTouch Verio test strips Strip See Rx Instructions .ROUTE .MEDSUPPLY Qty: 200 3RF Rx Instructions: Monitor BS BID per CDE; E11.9, to achieve A1C under 7%, T2 DM (DME) pen needle, diabetic [BD Ultra-Fine Mini Pen Needle] 31 gauge x 3/16 needle See Rx Instructions .ROUTE .COMPLEX Qty: 100 2RF Dose Instruction: TEST ONCE DAILY Rx Instructions: TEST ONCE DAILY (DME) lancets [OneTouch Delica Plus Lancet] 33 gauge misc See Rx Instructions .ROUTE .COMPLEX Qty: 100 3RF Dose Instruction: TEST TWICE DAILY DIRECTED Rx Instructions: TEST TID for A1C goal <7, DM E11.9 Discharge Instructions Instructions: Community Acquired Pneumonia (DC) Stand Alone Forms: Nursing Discharge Form Referrals: Vicenta Freed DO [Primary Care Provider] - 04/21/23 10:15 am Activity:: Activity as Tolerated Equipment/Supplies:: No Equipment Needed Diet:: As Tolerated Discharge Orders Discharge Orders: Discharge Order (Routine); Ordered 04/10/23 Ordered By: Joe Collier DS: Summary Time Spent with Patient providing and/or coordinating discharge services: Greater than 30 minutes Status at Discharge Functional status at discharge: independent ambulation Overall status at discharge: patient is back to baseline Mental Status: mental status grossly normal Speech and Movement: speech and movement normal Mood: congruent mood Affect: normal affect Exam Narrative Exam Narrative: Well-appearing older female sitting up in the chair no acute distress, nasal cannula no longer in place, A&O x 4, heart irregularly irregular, rate between 80 and 90, lungs coarse breath sounds in the right middle and lower lobes, abdomen soft, nontender nondistended Psych Mental Status: mental status grossly normal Speech and Movement: speech and movement normal Mood: congruent mood Affect: normal affect DS: Data Vitals/I&O Vitals and I&O: Vital Signs Temperature 99.0 F 04/10/23 06:17 Temperature Source Tympanic 04/10/23 06:17 Pulse 84 04/10/23 06:22 Pulse Rhythm Irregular 04/07/23 14:42 Pulse 70 04/10/23 04:01 Respiratory Rate 16 04/10/23 06:17 Respiratory Effort Normal, Non-Labored 04/10/23 04:05 Respiratory Depth Normal 04/10/23 04:05 Respiratory Pattern Normal 04/10/23 04:05 Blood Pressure 148/80 H 04/10/23 06:17 Blood Pressure Mean 81 04/10/23 04:01 Blood Pressure Position Supine 04/10/23 01:06 Pulse Oximetry 93 04/10/23 06:17 Oxygen Delivery Method Room Air 04/10/23 06:17 Oxygen Flow Rate 0 04/10/23 06:17 Pain Level 0 04/10/23 06:17 Comment Norepi off 04/09/23 05:31 Intake & Output 04/09/23 04/10/23 04/10/23 17:59 05:59 17:59 Intake Total 850 / 850 235 / 1085 Output Total 300 / 300 1250 / 1550 300 / 300 Balance 550 / 550 -1015 / -465 -300 / -300 Weight 173 lb 15.115 oz Intake: IV 200 / 200 235 / 435 Oral 650 / 650 Output: Urine 300 / 300 1250 / 1550 300 / 300 Other: Urine Color Dark Jyothi Yellow Straw Urine Appearance Clear Clear Sediment Urine Odor None None Comment Urine is dark jyothi. Kaur present Stool Size Moderate Stool Characteristics Soft Liquid Brown Voiding Methods Indwelling Catheter Indwelling Catheter Data Completed and Pending Labs on day of discharge: Labs from last 24 hours 04/10/23 05:37 WBC 9.23 RBC 3.44 L Hgb 10.8 L Hct 33.1 L MCV 96 H MCH 31.4 MCHC 32.6 RDW 13.1 Plt Count 154 MPV 10.9 Sodium 143 Potassium 3.9 Chloride 110 H Carbon Dioxide 25.3 Anion Gap 7.7 BUN 13 Creatinine 0.7 Est GFR (CKD-EPI 2020) 85.23 Glucose 95 Calcium 8.8 04/08/23 06:45 Sputum Sputum Culture - Pending Preliminary micro results at discharge 04/07/23 09:20 Blood Culture - Preliminary Blood NO GROWTH 48 HOURS 04/07/23 09:00 Blood Culture - Preliminary Blood NO GROWTH 48 HOURS 04/08/23 06:45 Sputum Culture - Pending Sputum PFSH All Active Problems (Updated 04/08/23 @ 10:16 by Joe Collier MD) Acute respiratory failure with hypoxia (Acute) Diastolic heart failure (Acute) Chronic atrial fibrillation with RVR (Acute) Septic shock (Acute) At risk for sepsis (Acute) Sepsis associated hypotension (Acute) Nausea and vomiting (Acute) Discharge planning issues (Acute) On deep vein thrombosis (DVT) prophylaxis (Acute) SIRS (systemic inflammatory response syndrome) (Acute) Pneumonia (Acute) Sepsis (Acute) Fever (Acute) Ingrown toenail (Acute) Onychomycosis (Acute) PVD (peripheral vascular disease) (Chronic) Venous insufficiency (Acute) Sacroiliac joint dysfunction of right side (Acute) Hiatal hernia (Chronic) 01/25/23 5cm ([facility] GI) Lipedema of lower extremity (Acute) nodular, symm, tender inner upper calves Nail dystrophy (Acute) Hypokalemia (Acute) Critically low, High risk medication use (Acute) Amiodarone since July, evaluating for tox (06/20/22 d/w [facility] cardio) 2' SOB w/NEG CTA & no improvement post diuresis (furosemide 40) SOB (shortness of breath) (Acute) Diabetes mellitus due to underlying condition, uncontrolled, with hyperglycemia (Acute) A1C rise due to inactivity 2' back/knee pain & steroid use.. winter 2021 Insulin dose changed (Acute) Elevated serum free T4 level (Acute) high TSH, High T4, 03/2022 ... Hx low TSH and high T4 (08/2021) Elevated TSH (Acute) Lymphedema (Acute) nonpitting edema -- seems lymphedema -- appreciate pt eval Atrial tachycardia (Acute) per Cardiology, [facility] .. Admitted post xfer from [facility] ED (08/08/21). EF 50%. Amiodarone started; Flecainide stopped. Amiodarone stopped 2022 concern for pulm tox Atrial fibrillation (Acute 07/06/11) normal echo and cath 2008; flecanide Rx; apixiban; echo 09/2013 EF 60%.. Atrioventricular block (Acute 07/07/12) pacemaker placement 12/04/2013; 5 sec asystoles last interrogation, 03/2017. Pacemaker (Acute 09/16/17) Sees DARNELL Tejada ([facility]). Dual lead Medtronic pacemaker Adapta .. Placed 2013, Dr. Edin Robles. 99Medtronic dual lead pacemaker implanted 12/04/2013 .. Adapta [id number] .. RA Medtronic [id number], 11/2013.. RV [id number] 12/04/2013)) Tachycardia (Acute) Type 2 diabetes mellitus (Acute) A1C jump 2' limited ambulation & steroid use. [ ] Insulin due to intolerance of PO Rx, ik, 03/2022.. Recent A1C increase, from pre-diabetes to DM this past year.. Edema (Acute) LE edema , R>L .. notable, possibly 2' Jardiance intolerance, but possible lymphedema (?) Medication intolerance (Acute) Unable to tolerate Jardiance (candidiasis!), Metformin. Dysphagia, unspecified (Acute 07/07/12) EGD KD: mild esophagitis 10/[address] Ragsdale 09/23/[address] Duncan, [facility], [place], [place]. Impression: Gerd Dysphagia. Rule out secondary to esophageal ulcer,dysmotility, or from perhaps a failing Singh. recommeded: Upper GI Gerd protocaol discussed w/ pt. panel 2,B12 If pt continues sx, may want to repeat upper endoscopy. Plans to see her back in [place]oll[place]. Gastroesophageal reflux disease (Acute 07/07/12) Managed with PPI for years, worsening x 2-3 months. Now associated with LUQ tenderness, 05/26/17. []H.pylori [] U/S LUQ ik IMPROVED with weight loss, 06/02.19, ik EGD rescheduled with Dr. Escobar (2' Margaret not yet taking appts @ [facility]), 05/26/17 .. Consulted, EGD sched for 06/29/17. note: s/p Singh, hernia repair, and esoph dilation (2013) 10/29/21 GI visit with f/u in 6w Atrophic gastritis without mention of hemorrhage (Acute 07/07/12) History of hiatal hernia (Acute) Reactive airway disease (Chronic) Medical History Arthropathy of left knee Arthritis of left knee s/p L TKA 05/26/22 Failed fundoplication Pyrosis Sensorineural hearing loss Lesion of face or BCCA left lateral canthus 09/14/[address] Dillon 09/22/21 sutures removed Left knee pain DEPO MEDROL 01/14/[address] [facility] (during hosp stay for atrial tach), NEG.. referred to local ortho ([place]). High risk medications (not anticoagulants) long-term use Amiodarone started, 07/2021 (after years on flecainide).. [ ] Ophtho, EP, Echo, PFTs .. short-term lasix. Cardiomyopathy Due to atrial tachycardia.. xferred to [facility], PM reprogrammed. Amiodarone replacing flecainide. Low-dose diuretics (see 08/11/21 [facility] Cardio note).. Vulvovaginal candidiasis 2' Jardiance .. trial monostat or diflucan . STOP Jardiance if janae returns. Esophagitis determined by biopsy Hypomagnesemia Noted @ ED, 02/2021 .. replenished. Monitor [ ] Macular pucker Leg edema Leg weakness With standing .. Hx lumbar stenosis .. Hx spinal injection (?) Muscle spasm of left shoulder area Trapezius MM Spasm .. Deformity of toenail Right lumbar radiculopathy Spinal stenosis of lumbar region High risk medications (not anticoagulants) long-term use Flecainide - started by Dr. Douglass Hot flashes Hot Flashes x 6 mos, 06/13/19. Piriformis syndrome of right side Pelvic pain (02/07/13) Trochanteric bursitis, right hip (05/19/16) Thyroid nodule (01/28/15) 01/01/15 US 4mm nodule isthmus 05/15/15 US 4.5 nodule isthmus, ?7x5 nodule right Sensorineural hearing loss, bilateral (12/28/13) Primary osteoarthritis of right knee (01/10/17) s/p RT TKR Fall 2018 Postnasal drip (01/09/15) Osteoarth NOS-unspec (07/06/11) Neurogenic pain of right lower extremity (09/19/15) Multinodular goiter (12/19/15) Impaired glucose tolerance (03/10/12) Hypothyroidism (01/02/13) TSH 2.43 (05/2017) vs. >9 (02/2017). Cont @ same [facility] [place]. Hyperlipidemia (07/07/12) Family hx-breast malignancy (11/13/12) SISTER IN 60s Exertional dyspnea (01/28/15) Essential hypertension (01/18/13) FRS 13% .. 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 [facility] q6m x1 year, then annually. --[facility] 06/2016 Shakira Diaz MD Post-radiation association with new abd pain (?), ik, 05/26/17 Controlled type 2 diabetes mellitus without complication, without long-term current use of insulin (03/26/16) POOR CTL, 01/2021 (A1C 7.6) .. A1C goal 7.5 ... 7.1 today, 08/07/20. 6.8/6.9 in 11/2016. A1C 6.5 post weight loss and focused effort on reducing carbs/sweets. 06/02/18, ik A1C remains @ 6.5 08/2018, good job! Chronic eczematoid otitis externa of both ears (01/22/16) Dr Jeffrey Cardenas Asthma (01/18/13) possible asthma; PFTs normal 04/27/2012.07/2013 Sensorineural hearing loss of both ears Urge incontinence History of postmenopausal bleeding Symptomatic bradycardia Surgical History History of total left knee replacement (TKR) (05/26/22) History of total knee arthroplasty (05/26/22) Status post right knee replacement Dr. Del Cid, Ortho. She is happy with knee, able to step down from sidewalk w/o fear per 03/02/18 appt discussion. COntinues to do well; seeing ortho for possible neuropathic pain (outer rt calf). upper GI Series (10/05/17) for sx of epigastric dysphagia,GERD. Done by Dr. Duncan. Impression: Moderate sized Hiatal Hernia. Marked gastroesophageal reflux. sentinal lymph node dissection (07/01/16) NEG for mets from endometrium Replacement of total knee joint (12/03/16) R knee Dr Del Cid Pacemaker (12/04/13) Hyseterectomy, Total Laparoscopic w/ BSO (07/01/16) +Endometrial cancer Hernia, hiatal (banding) EGD - [facility] [place] (06/29/17) Colonoscopy - IV Sedation (03/17/16) Cholecystectomy Extraction of cataract B/L Cardiac Cath, 2008 History of Surgical Procedure a. Cholecystectomy. b. Bilateral cataract surgery. c. Hiatal hernia repair 2008. d. Esophagus stretching 2013 - Dr. Ragsdale. e. Pacemaker 12/04/2013 Family History Mother , old age at age 98. No problems noted. Father , Heart disease at age 64. Heart disease [place] Sister , Colon Ca Personal history of malignant neoplasm Sister , Heart problems at age 72. Personal history of malignant neoplasm Breast cancer, dx'ed in her 60s Heart disease Sister Hypertensive disorder, systemic arterial Diabetes Sister Diabetes Sister Hypertensive disorder, systemic arterial Brother , Parkinson's at age 75. Personal history of malignant neoplasm Brother Parkinson's disease Brother , Heart condition at age 62. Hypertensive disorder, systemic arterial Diabetes Brother Hypertensive disorder, systemic arterial Diabetes Social History Smoking/Tobacco Use Status: Never Smoking risk assessment performed?: Yes Alcohol Intake: never Drug use: Never Substance use type: does not use Adopted: No Foster care: No Housing: apartment Number of Children: 0 number of grandchildren: 0 Communication Needs: Corrective Lenses current occupation: retired from [employer] Pets and animals: No Current gender identity: female What is your relationship status?: Panel score (0-1 are the most socially isolated patients): 0 Seatbelt use: always Working smoke detector in home: Yes Fire extinguisher in home: Yes Carbon monox detector in home: Yes Firearms in home: No Do you feel safe at home: Yes Do you feel safe in your relationship?: Yes Time Spent with Patient Time Spent with Patient: <45 minutes Time was spent: preparing to see the patient(eg.review tests), obtaining and/or reviewing separately otained hiistory, ordering medications,tests, procedures, referring, communicating with other health early breastfeeding care specialist, indepentently interpreting results, counseling the patient and care coordination
--- NOTE | 2023-04-10 10:05 | PDOC.CMDIS ---
Date of service: 04/10/23 Time of Service: 10:05 LACE Index Scoring Tool Questions: Length of Stay (in days): 3 Was the patient admitted via the E.D.?: Yes Comorbidities: PVD and Diabetes w/o Complication E.D. Visits: 1 Answers: Total Score: 9 Risk of Readmission: Low Risk Care Management Discharge Plan Reason for Hospitalization: Pneumonia Discharge Plan: Elaina will discharge home when medically cleared. She will transport via private vehicle with her friend. She will follow up with community providers and discharge plan of care as prescribed. Patient/Family Education Needs: Review discharge instructions, discuss Ask Me Three.
[2023-04-10 16:31] LABS: Streptococcus Pneumoniae Ag, U Negative (Negative)
[2023-04-11 16:36] LABS: Mycoplasma Pneumoniae PCR Negative (Negative); Specimen source Sputum
== END 2023-04-10 09:18 | disposition home or self-care (01) | DRG 871 ==
LOC: ER 09:47 → MS 14:35 → ICU 04-08 13:46 → MS 04-08 13:48 → ICU 04-09 00:59 → MS 04-10 06:07
PROVIDERS: Family Medicine; Nurse Practitioner Acute Care; Admitting Provider Internal Medicine; Emergency Provider Emergency Medicine; PCP Student in an Organized Health Care Education/Training Program; Visit Provider Internal Medicine
DX: A41.9 Sepsis, unspecified organism (principal); I50.33 Acute on chronic diastolic (congestive) heart failure; J18.9 Pneumonia, unspecified organism; R65.21 Severe sepsis with septic shock; J96.01 Acute respiratory failure with hypoxia; I42.9 Cardiomyopathy, unspecified; I48.20 Chronic atrial fibrillation, unspecified; R11.2 Nausea with vomiting, unspecified; E11.9 Type 2 diabetes mellitus without complications; Z95.0 Presence of cardiac pacemaker; I73.9 Peripheral vascular disease, unspecified; B35.1 Tinea unguium; I87.8 Other specified disorders of veins; K44.9 Diaphragmatic hernia without obstruction or gangrene; E87.6 Hypokalemia; Z79.899 Other long term (current) drug therapy; Z79.4 Long term (current) use of insulin; I89.0 Lymphedema, not elsewhere classified; R13.10 Dysphagia, unspecified; J45.909 Unspecified asthma, uncomplicated; K29.40 Chronic atrophic gastritis without bleeding; Z96.652 Presence of left artificial knee joint; M54.16 Radiculopathy, lumbar region; M48.061 Spinal stenosis, lumbar region without neurogenic claudication; H90.3 Sensorineural hearing loss, bilateral; E04.2 Nontoxic multinodular goiter; E78.5 Hyperlipidemia, unspecified; I11.0 Hypertensive heart disease with heart failure; N39.41 Urge incontinence; Z85.42 Personal history of malignant neoplasm of other parts of uterus
CPT/HCPCS: 36569; 00123; 36415; 36591; 80048; 80053; 83690; 84145; 85027; 87040; 87449; 87637; 87641; 93005; 93308; 94640; 96361; 96365; 96366; 96368; 96375; 99291; 71045; 74177; 81003; 81015; 83605; 83880; 84484; 85025; 87070; 87086; 87205; 87581; 87899; 93010; 93306; 94664; 94667; 94668; 94760; 99223; 99233; 99239; 99292; G0378; J0131; J0456; J1720; J1885; J2405; J2543; J3490; J7620

== ENCOUNTER 2023-04-21 11:47 | Outpatient (REF) | payer MEDICARE, SELFPAY ==
[2023-04-21 15:19] LABS: Abs Immature Grans 0.02 10^3/uL (0.0-0.06); Absolute Basophil Count 0.02 10^3/uL (0.0-0.2); Absolute Eosinophil Count 0.11 10^3/uL (0.0-0.7); Absolute Lymphocyte Count 1.52 10^3/uL (1.2-3.4); Absolute Monocyte Count 0.42 10^3/uL (0.1-0.8); Absolute Neutrophil Count 3.85 10^3/uL (1.2-6.7); Basophils % 0.3; Eosinophils % 1.9; HCT 37.1 % (36.0-46.0); HGB 12.4 g/dL (11.2-15.7); Immature Grans % 0.3; Lymphocytes % 25.6; MCH 31.4 pg (27.0-33.0); MCHC 33.4 % (32.0-36.0); MCV 94 fL (80-95); MPV 10.5 fL (8.0-11.0); Monocytes % 7.1; Neutrophils % 64.8; Platelet Count 330 10^3/uL (130-400); RBC 3.95 10^6/uL (3.93-5.22); RDW 13.2 % (11.7-14.6); RDW-SD 45.2 fL; WBC 5.94 10^3/uL (4.4-10.8)
[2023-04-21 15:40] LABS: ALT 20 U/L (14-59); AST 26 U/L (15-37); Albumin 3.3 g/dL (3.4-5.0); Alkaline Phosphatase 54 U/L (46-116); Anion Gap 8.6 mmol/L (3-11); BUN 9 mg/dL (7-18); Bilirubin, Direct 0.2 mg/dL (0.0-0.2); Bilirubin, Total 0.6 mg/dL (0.2-1.0); CO2 30.4 mmol/L (21.0-32.0); CREATININE 0.8 mg/dL (0.55-1.02); Calcium 9.1 mg/dL (8.5-10.1); Chloride 102 mmol/L (98-107); Estimated GFR 72.61 (mL/min/1.73m2); Glucose 134 mg/dL (74-106); Magnesium 1.6 mg/dL (1.8-2.4); NT-proBNP 121 pg/mL (<300); Potassium 3.1 mmol/L (3.5-5.1); Sodium 141 mmol/L (136-145); TSH (W/Ref FT4) 1.13 uIU/mL (0.36-3.74); Total Protein 6.5 g/dL (6.4-8.2)
[2023-04-21 15:42] LABS: Hemoglobin A1C 6.9 % (<5.7)
== END 2023-04-21 11:48 | disposition home or self-care (01) ==
LOC: LBN 11:47
PROVIDERS: PCP Student in an Organized Health Care Education/Training Program; Referring Provider Student in an Organized Health Care Education/Training Program; Visit Provider Student in an Organized Health Care Education/Training Program
DX: R73.09 Other abnormal glucose (principal); R06.02 Shortness of breath; I50.30 Unspecified diastolic (congestive) heart failure; I48.20 Chronic atrial fibrillation, unspecified; E87.6 Hypokalemia; R79.89 Other specified abnormal findings of blood chemistry; Z79.899 Other long term (current) drug therapy
CPT/HCPCS: 80053; 80076; 83036; 83735; 83880; 84443; 85025

== ENCOUNTER 2023-04-22 09:49 | Outpatient (CLI) | payer MEDICARE, SELFPAY | END 2023-04-22 09:50 | disposition home or self-care (01) | PROVIDERS: PCP Student in an Organized Health Care Education/Training Program; Visit Provider Student in an Organized Health Care Education/Training Program | DX: R06.02 Shortness of breath (principal) | CPT/HCPCS: 93246 ==

== ENCOUNTER 2023-05-13 16:41 | Outpatient (REF) | payer MEDICARE, SELFPAY ==
[2023-05-13 19:13] LABS: ALT 21 U/L (14-59); AST 18 U/L (15-37); Albumin 3.3 g/dL (3.4-5.0); Alkaline Phosphatase 43 U/L (46-116); Anion Gap 7.9 mmol/L (3-11); BUN 9 mg/dL (7-18); Bilirubin, Total 0.6 mg/dL (0.2-1.0); CO2 29.1 mmol/L (21.0-32.0); CREATININE 0.8 mg/dL (0.55-1.02); Calcium 8.9 mg/dL (8.5-10.1); Chloride 103 mmol/L (98-107); Estimated GFR 72.61 (mL/min/1.73m2); Glucose 225 mg/dL (74-106); Magnesium 1.6 mg/dL (1.8-2.4); Sodium 140 mmol/L (136-145); TSH (W/Ref FT4) 0.17 uIU/mL (0.36-3.74); Total Protein 6.4 g/dL (6.4-8.2)
[2023-05-13 19:18] LABS: Vitamin D 25 Total 12.4 ng/mL (30-100)
[2023-05-13 19:53] LABS: FREE T4 1.48 ng/dL (0.76-1.46)
== END 2023-05-13 16:42 | disposition home or self-care (01) ==
LOC: LBN 16:41
PROVIDERS: PCP Student in an Organized Health Care Education/Training Program; Visit Provider Student in an Organized Health Care Education/Training Program
DX: E08.65 Diabetes mellitus due to underlying condition with hyperglycemia (principal); E87.6 Hypokalemia; R06.02 Shortness of breath; R79.89 Other specified abnormal findings of blood chemistry; Z79.899 Other long term (current) drug therapy; Z86.19 Personal history of other infectious and parasitic diseases; Z91.89 Other specified personal risk factors, not elsewhere classified
CPT/HCPCS: 80053; 82306; 83735; 84439; 84443

== ENCOUNTER 2023-05-16 11:25 | Outpatient (CLI) | payer MEDICARE, SELFPAY ==
--- NOTE | 2023-05-17 08:09 | ZIOP_ITS ---
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 The predominant rhythm is atrial fibrillation with a 50% burden the fastest atrial fibrillation ventricular rate was 171 bpm. 2. Periods of normal sinus rhythm with an average heart rate of 81 bpm. 3. Rare PVCs, no V. tach 4. Occasional appropriate atrial pacing and occasional appropriate ventricular pacing 5. Patient triggers corresponded to rapid atrial fibrillation and PVCs. Impression: Paroxysmal atrial fibrillation with rapid ventricular response
== END 2023-05-16 11:26 | disposition home or self-care (01) ==
LOC: CARDOPNVT 11:25
PROVIDERS: PCP Student in an Organized Health Care Education/Training Program; Visit Provider Internal Medicine Interventional Cardiology
DX: R06.02 Shortness of breath (principal); I48.91 Unspecified atrial fibrillation
CPT/HCPCS: 93248

== ENCOUNTER 2023-05-30 14:07 | Outpatient (CLI) | payer MEDICARE, SELFPAY ==
--- NOTE | 2023-05-30 09:45 | DI.RAD_ITS ---
Exam(s) XR KNEE LT 2V AP,LAT EXAM: XR KNEE LT 2V AP,LAT CLINICAL HISTORY: ANNUAL F/U L TKA. TECHNIQUE: 2D digital imaging was performed. Three views. COMPARISON: CR XR KNEE LT 1V from 07/05/2022 FINDINGS: BONES: There has been no change in the alignment of the total knee prosthesis. No acute fracture is present. No bony destructive lesion is seen. JOINTS: The knee is normally aligned. No joint effusion is seen. SOFT TISSUE: Venous varicosities. IMPRESSION: Stable appearance of knee prosthesis. DATA REPOSITORY: RADIATION DOSE DELIVERED:
== END 2023-05-30 14:08 | disposition home or self-care (01) ==
LOC: DIORS 14:08
PROVIDERS: PCP Student in an Organized Health Care Education/Training Program; Referring Provider Student in an Organized Health Care Education/Training Program; Visit Provider Student in an Organized Health Care Education/Training Program
DX: Z96.652 Presence of left artificial knee joint (principal); Z47.1 Aftercare following joint replacement surgery
CPT/HCPCS: 99213; 73560

== ENCOUNTER → 2023-05-31 02:53 | Outpatient (CLI) | payer MEDICARE, SELFPAY ==
--- NOTE | 2023-05-31 10:27 | DI.RAD_ITS ---
Exam(s) XR CHEST 2V PA LATERAL EXAM: XR CHEST 2V PA LATERAL CLINICAL HISTORY: evaluate for clearig of RT lwr/middle PNA Infiltr,cough,r05.9,h/o pneumon TECHNIQUE: 2D digital imaging was performed. COMPARISON: CR,XR XR PORTABLE CHEST AP from 04/07/2023 FINDINGS: HEART: Normal size. Pacemaker. Aorta: Not dilated. PULMONARY VASCULATURE: Normal. LUNGS: Clear. PLEURAL SPACE: No pleural effusion or pneumothorax. BONE:Unremarkable for age. Soft tissues: Unremarkable. IMPRESSION: No acute abnormality. DATA REPOSITORY: RADIATION DOSE DELIVERED:
== END ==
PROVIDERS: PCP Student in an Organized Health Care Education/Training Program; Visit Provider Student in an Organized Health Care Education/Training Program
DX: R05.9 Cough, unspecified (principal); Z87.01 Personal history of pneumonia (recurrent)
CPT/HCPCS: 71046; 99213

== ENCOUNTER → 2023-06-22 01:46 | Outpatient (CLI) | payer MEDICARE, SELFPAY ==
--- NOTE | 2023-06-22 12:25 | DI.US_ITS ---
APPROVED REPORT EXAM: Comprehensive 2D, Doppler, and color-flow Echocardiogram Patient Location: Out-Patient Payable Representative: Annie Parker RDCS (AE) Indications: Evaluate for diastolic heart failure, SOB, A Fib Other Information Study Quality: Adequate Conclusion Normal left ventricular wall thickness and chamber size. Ejection fraction. Wall motion is normal Normal right ventricular size and function Left atrium is moderately dilated. Right atrium is mildly dilated Device lead noted in the right heart The aortic valve is sclerotic and trileaflet with trace regurgitation Mildly thickened mitral leaflets, mild regurgitation Normal tricuspid valve with mild to moderate regurgitation Estimated right ventricular systolic pressure was 29 mmHg Patient was in atrial fibrillation throughout the study Wall motion Left Ventricle The left ventricle is normal size. The left ventricular systolic function is normal. The left ventric ular ejection fraction is within the normal range. There is normal left ventricular wall thickness. T here is normal LV segmental wall motion. There is no ventricular septal defect visualized. LVEF is 55 -60%. Right Ventricle The right ventricle is normal size. The right ventricular systolic function is normal. Atria Left atrium is moderate to severely dilated. Right atrium is mildly dilated. The interatrial septum i s intact with no evidence for an atrial septal defect. Aortic Valve The Aortic valve is sclerotic. Aortic valve is trileaflet. There is no aortic valvular stenosis. Trac e aortic regurgitation. Mitral Valve Mitral valve leaflets are mildly thickened. No evidence of mitral valve stenosis. Mild mitral regurgi tation. Tricuspid Valve The tricuspid valve is normal in structure. There is no tricuspid valve stenosis. Mild to moderate tr icuspid regurgitation. The RVSP is 28.8 mmHg. Pulmonic Valve The pulmonary valve is normal in structure. There is no pulmonic valvular stenosis. There is no pulmo sharan valvular regurgitation. Great Vessels The aortic root is normal in size. The ascending aorta is normal in size. Aortic arch is normal in ca liber. IVC is normal in size and collapses >50% with inspiration. Pericardium There is no pericardial effusion. 2D Dimensions IVSD d PLAX 0.84 cm F: 0.6-1.0 Ao Root d 2.77 cm F: 2.7 - 3.3 LVPW d PLAX 0.82 cm F: 0.6 - 1.0 Ao Asc Diam d 3.20 cm F: 2.3 - 3.1 LVID d PLAX 3.91 cm F: 3.8 - 5.2 LVDs 2.81 cm F: 2.2 - 3.5 LV EF Teichholz 55.0 % FS 28.11 % LV EDV (Teich) 66.3 mL LV ESV (Teich) 29.8 mL M-Mode TAPSE 2.37 cm (M/F) >1.7 Auto EF LV EDV A4C 61.3 mL LV EDV A2C 98.7 mL LV EDV BP 77.4 mL LV ESV A4C 28.0 mL LV ESV A2C 45.3 mL LV ESV BP 35.6 mL LVEF(%) A4C 54.4 % LVEF(%) A2C 54.1 % LVEF(%) BP 54.0 % LV SV A4C 33.3 ml LV SV A2C 53.4 ml LV SV BP 41.8 ml LV CO A4C 2.3 L/min LV CO A2C 3.7 L/min LV CO BP 3.0 L/min HR A4C 67.67 BPM HR A2C 69.10 BPM LV EDV Index (BP) LV Strain Long Pk Overal Avg (s) 16.43 LA Volume LA Length A4C 5.7 cm LA Length A2C 5.9 cm LA Area A4C s 25.41 cm2 LA Area A2C s 20.91 cm2 LA Vol A4C A-L 96.47 mL LA Vol A2C A-L 62.43 mL LA Vol Biplane A-L 79.4 mL LA Vol/BSA A4C A-L LA Vol/BSA A2C A-L LA Vol/BSA BP A-L 47.0 mL/m2 LA Vol A4C MOD 86.7 mL LA Vol A2C MOD 58.6 mL LA Vol BP MOD 72.5 mL RA Volume RA Area A4C 11.9 cm2 RA ESV A4C (A-L) 24.3mL RA Vol/BSA A4C A-L RA Length A4C 4.9 cm RA ESV A4C (MOD) 23.2mL LV Diastology MV E' lateral 0.139 (>0.1 m/s) MV E Vmax 1.04 (0.4-1.3 m/s) Aortic Valve AoV Vmax 1.40 m/s LVOT Vmax 1.06 m/s AoV Peak Grad 23.1 mmHg LVOT Peak Grad 4.5 mmHg AoV Area (Vmax) 2.11 cm2 LVOT VTI 0.235 m AoV VTI 0.288 m LVOT Mean Grad 2.2 mmHg AoV Mean Bret. 0.96 m/s LVOT SV 65.57 mL AoV Mean Grad 4.2 mmHg LVOT Diam s 1.85 cm AoV Area (VTI) 2.28 cm2 AV Regurg Peak Gr. 38.20 mmHg Velocity Ratio 0.76 AR Decel Woodruff 0.7m/sec2 AR DT 4176 msec AR PHT 1211 msec AR Vmax 3.09 m/s Mitral Valve MR Vmax 0.98 m/s MR VTI 0.183 m MR Peak Grad 3.8 mmHg MR Mean Grad 1.6 mmHg Pulmonary Valve PV Vmax 1.03 (0.5-1.5 m/s) RVOT Vmax 0.66 m/s PV Peak Grad 4.3 mmHg RVOT Peak Gr. 1.8 mmHg PV Mean Bret 0.70 m/s RVOT VTI 0.122 m PV Mean Grad 2.1 mmHg RVOT Mean Gr. 1.0 mmHg Tricuspid Valve RA Pressure 3.00 mmHg TR Vmax 2.54 m/s TV S' 0.15 m/s TR Peak Grad 25.8 mmHg RVSP (TR) 28.8 mmHg
== END ==
PROVIDERS: PCP Student in an Organized Health Care Education/Training Program; Visit Provider Student in an Organized Health Care Education/Training Program
DX: I50.30 Unspecified diastolic (congestive) heart failure (principal)
CPT/HCPCS: 93306

== ENCOUNTER → 2023-06-30 09:25 | Outpatient (BNVA) | payer MEDICARE, SELFPAY | PROVIDERS: PCP Student in an Organized Health Care Education/Training Program; Referring Provider Student in an Organized Health Care Education/Training Program; Visit Provider Podiatrist | DX: R60.0 Localized edema (principal); L60.3 Nail dystrophy; I87.2 Venous insufficiency (chronic) (peripheral); I73.9 Peripheral vascular disease, unspecified; B35.1 Tinea unguium; L60.0 Ingrowing nail; E08.65 Diabetes mellitus due to underlying condition with hyperglycemia | CPT/HCPCS: 11721; 93922 ==

== ENCOUNTER 2023-07-06 03:55 | Outpatient (CLI) | payer MEDICARE, SELFPAY ==
[2023-07-06 15:17] LABS: ALT 19 U/L (14-59); AST 23 U/L (15-37); Albumin 3.2 g/dL (3.4-5.0); Alkaline Phosphatase 53 U/L (46-116); Anion Gap 8.6 mmol/L (3-11); BUN 10 mg/dL (7-18); Bilirubin, Total 0.4 mg/dL (0.2-1.0); CO2 29.4 mmol/L (21.0-32.0); CREATININE 0.7 mg/dL (0.55-1.02); Calcium 8.8 mg/dL (8.5-10.1); Chloride 104 mmol/L (98-107); Estimated GFR 85.23 (mL/min/1.73m2); Glucose 143 mg/dL (74-106); Magnesium 1.7 mg/dL (1.8-2.4); Sodium 142 mmol/L (136-145); Total Protein 6.7 g/dL (6.4-8.2)
== END 2023-07-06 03:56 | disposition home or self-care (01) ==
LOC: LBO 03:56
PROVIDERS: PCP Student in an Organized Health Care Education/Training Program; Visit Provider Student in an Organized Health Care Education/Training Program
DX: Z91.89 Other specified personal risk factors, not elsewhere classified (principal); R77.0 Abnormality of albumin
CPT/HCPCS: 36415; 80053; 83735

== ENCOUNTER → 2023-07-14 10:41 | Outpatient (BNVA) | payer MEDICARE, SELFPAY | PROVIDERS: PCP Student in an Organized Health Care Education/Training Program; Referring Provider Student in an Organized Health Care Education/Training Program; Visit Provider Internal Medicine Cardiovascular Disease | DX: I48.91 Unspecified atrial fibrillation (principal); Z95.0 Presence of cardiac pacemaker; I42.9 Cardiomyopathy, unspecified; R06.02 Shortness of breath | CPT/HCPCS: 99213 ==

== ENCOUNTER 2023-08-18 05:52 | Outpatient (CLI) | payer MEDICARE, SELFPAY ==
[2023-08-18 09:54] LABS: Anion Gap 9.1 mmol/L (3-11); BUN 11 mg/dL (7-18); CO2 30.9 mmol/L (21.0-32.0); CREATININE 0.8 mg/dL (0.55-1.02); Calcium 8.6 mg/dL (8.5-10.1); Chloride 103 mmol/L (98-107); Estimated GFR 72.61 (mL/min/1.73m2); Glucose 141 mg/dL (74-106); Magnesium 1.8 mg/dL (1.8-2.4); Potassium 3.7 mmol/L (3.5-5.1); Sodium 143 mmol/L (136-145); TSH (W/Ref FT4) 52.06 uIU/mL (0.36-3.74)
[2023-08-18 10:14] LABS: FREE T4 0.56 ng/dL (0.76-1.46)
[2023-08-18 20:25] LABS: Vitamin D 25 Total 10.1 ng/mL (30-100)
== END 2023-08-18 05:53 | disposition home or self-care (01) ==
LOC: LBO 05:52
PROVIDERS: PCP Student in an Organized Health Care Education/Training Program; Visit Provider Student in an Organized Health Care Education/Training Program
DX: I10 Essential (primary) hypertension (principal); R79.89 Other specified abnormal findings of blood chemistry; Z91.89 Other specified personal risk factors, not elsewhere classified; E07.9 Disorder of thyroid, unspecified; E55.9 Vitamin D deficiency, unspecified
CPT/HCPCS: 36415; 80048; 82306; 83735; 84439; 84443

== ENCOUNTER → 2023-09-01 00:24 | Outpatient (CLI) | payer MEDICARE, SELFPAY ==
--- NOTE | 2023-09-01 | DI.US_ITS ---
Exam(s) US THYROID EXAM: US THYROID CLINICAL HISTORY: E03.9, E04.1, R79.89, eval nodule, Hypothyroidism, abn blood chemistry. TECHNIQUE: Ultrasound thyroid performed using standard protocol. COMPARISON: US US THYROID from 06/19/2019 FINDINGS: ISTHMUS: 6 mm RIGHT LOBE: Size: 4.8 x 2.1 x 1.8 cm Echogenicity: There is diffuse heterogeneity of the right lobe of the thyroid gland. Vascularity: There is diffuse hyper vascularity of the gland. Nodules: None. LEFT LOBE: Size: 4.8 x 1.8 x 1.6 cm Echogenicity: There is diffuse heterogeneity of the left lobe of the thyroid gland. Vascularity: There is diffuse hypervascularity of the gland. Nodules: The nodule seen in the medial aspect of the left lobe is again visualized and measures 2.7 mm AP x 3 mm craniocaudad by 4.6 mm transverse. It is hypoechoic. No echogenic foci are seen. Prev iously this nodule measured 0.4 x 0.5 x 0.5 cm. It is consistent with a TI rads level 4 nodule. Due to its size, no follow-up is recommended. OTHER FINDINGS: Sonographically unremarkable appearing lymph nodes are seen in the soft tissues. IMPRESSION: 1. Diffuse heterogeneity and vascularity of the thyroid gland suggesting diffuse thyroid disease such as thyroiditis. Please correlate with patient's laboratory values. 2. Left thyroid nodule. Due to its size, no follow-up is recommended. DATA REPOSITORY:
== END ==
PROVIDERS: PCP Student in an Organized Health Care Education/Training Program; Visit Provider Student in an Organized Health Care Education/Training Program
DX: E06.5 Other chronic thyroiditis (principal)
CPT/HCPCS: 76536

== ENCOUNTER → 2023-09-07 12:44 | Outpatient (BNVA) | payer MEDICARE, SELFPAY | PROVIDERS: PCP Student in an Organized Health Care Education/Training Program; Referring Provider Student in an Organized Health Care Education/Training Program; Visit Provider Student in an Organized Health Care Education/Training Program | DX: Z45.010 Encounter for checking and testing of cardiac pacemaker pulse generator [battery] (principal); I48.91 Unspecified atrial fibrillation | CPT/HCPCS: 93280 ==

== ENCOUNTER → 2023-09-28 09:23 | Outpatient (BNVA) | payer MEDICARE, SELFPAY | PROVIDERS: PCP Student in an Organized Health Care Education/Training Program; Referring Provider Student in an Organized Health Care Education/Training Program; Visit Provider Podiatrist | DX: R60.0 Localized edema (principal); E08.65 Diabetes mellitus due to underlying condition with hyperglycemia; L60.3 Nail dystrophy; I87.2 Venous insufficiency (chronic) (peripheral); I73.9 Peripheral vascular disease, unspecified; B35.1 Tinea unguium; G62.9 Polyneuropathy, unspecified; R20.8 Other disturbances of skin sensation; L65.9 Nonscarring hair loss, unspecified; R23.8 Other skin changes | CPT/HCPCS: 11721 ==

== ENCOUNTER 2023-10-04 05:08 | Outpatient (CLI) | payer MEDICARE, SELFPAY ==
[2023-10-04 11:56] LABS: TSH (W/Ref FT4) 6.12 uIU/mL (0.36-3.74)
[2023-10-04 12:17] LABS: FREE T4 1.04 ng/dL (0.76-1.46)
== END 2023-10-04 05:09 | disposition home or self-care (01) ==
LOC: LBO 05:08
PROVIDERS: PCP Student in an Organized Health Care Education/Training Program; Referring Provider Student in an Organized Health Care Education/Training Program; Visit Provider Student in an Organized Health Care Education/Training Program
DX: E03.9 Hypothyroidism, unspecified (principal); E04.1 Nontoxic single thyroid nodule; R79.89 Other specified abnormal findings of blood chemistry
CPT/HCPCS: 36415; 84439; 84443

== ENCOUNTER → 2023-10-12 03:32 | Outpatient (CLI) | payer MEDICARE, SELFPAY ==
--- NOTE | 2023-10-12 | DI.US_ITS ---
Exam(s) US EXTREMITY VENOUS BI EXAM: US EXTREMITY VENOUS BI CLINICAL HISTORY: S/P RADIATION, Z92.3, SWELLING BOTH LOWER EXTREMITIES, M79.89,. TECHNIQUE: Bilateral lower extremity venous ultrasound performed using grayscale, color-flow, and sp ectral Doppler analysis. COMPARISON: No exams were available for comparison FINDINGS: The bilateral common femoral, femoral and popliteal veins demonstrate normal compressibility, augment ation, and color Doppler. The posterior tibial veins are patent. No Thacker's cyst identified. IMPRESSION: Right: Negative for DVT Left: Negative for DVT DATA REPOSITORY:
== END ==
PROVIDERS: PCP Student in an Organized Health Care Education/Training Program; Visit Provider Radiology Radiation Oncology
DX: M79.89 Other specified soft tissue disorders (principal); Z85.42 Personal history of malignant neoplasm of other parts of uterus; Z92.3 Personal history of irradiation
CPT/HCPCS: 93970

== ENCOUNTER 2023-11-25 15:38 | Inpatient (IN) | payer MEDICARE, SELFPAY ==
[2023-11-25] VITALS (29 sets, daily range): BP systolic 101–164; BP diastolic 60–146; PULSE 58–115; RESP 10–24; TEMP 36.7–37.4; O2SAT 92–100
--- NOTE | 2023-11-25 15:45 | RT.EKG_ITS ---
APPROVED REPORT Exam: Resting ECG Reason for Exam: fall, landed on L side Patient Location: E HR:91 bpm ECG Measurements Heart Rate 91 AXIS MO [id number] P [id number] QRSd 85 QRS 52 QT 361 T -48 QTc 444 Conclusion Atrial fibrillation...V-rate 77-101, irreg A-activity afib rate controlled inferior lateral t wave inversion
--- NOTE | 2023-11-25 15:45 | DI.RAD_ITS ---
Exam(s) XR SHOULDER LT COMPLETE 2+V EXAM: XR SHOULDER LT COMPLETE 2+V CLINICAL HISTORY: L shoulder pain s/p fall. TECHNIQUE: 2D digital imaging was performed of the left shoulder. Three images were obtained. AP, Grashey and Y views were obtained. COMPARISON: No exams were available for comparison FINDINGS: BONES: There is an acute comminuted fracture involving the proximal left humerus. There is an impact ed component through the surgical neck. There is also a mildly displaced comminuted component involv ing the greater tuberosity. No bony destructive lesion is seen. JOINTS: No dislocation present. SOFT TISSUE: Normal. IMPRESSION: Comminuted impacted fracture involving the proximal left humerus. DATA REPOSITORY: RADIATION DOSE DELIVERED:
[2023-11-25] MEDS: HYDROmorphone 2 MG/ML SYR (15:54)
--- NOTE | 2023-11-25 15:54 | DI.CT_ITS ---
Exam(s) CT CHEST/ABD/PEL W CT THORACIC LUMBAR SPINE REC EXAM: CT CHEST/ABD/PEL W and CT thoracic and lumbar spine recons CLINICAL HISTORY: trauma, landed on L shoulder TECHNIQUE: Imaging Protocol: Axial computed tomography images with coronal and sagittal reformatted images were created and reviewed CONTRAST MATERIAL: Intravenous: Omnipaque 350 contrast volume:100 mL Oral: No COMPARISON: CT CT CHEST PE CTA from 12/31/[address] ABDOMEN PELVIS W from 04/07/2023 FINDINGS: CHEST: Tracheobronchial tree: Patent where visualized. Pulmonary parenchyma: No consolidation or dominant measurable mass. There is an area of atelectasis s een in the medial aspect of the right middle lobe. Visualized thyroid gland: Unremarkable. Mediastinum and Maricel: No dominant adenopathy or fluid collection. The esophagus is unremarkable. The re is a moderate size hiatal hernia. Pleura: No effusion or pneumothorax. Heart: Mild cardiomegaly. Coronary artery calcifications are present. Cardiac monitoring device and wires are in place. No pericardial effusion. Pulmonary arteries: No central pulmonary embolism is present. Aorta: Thoracic aorta non-dilated. There is no evidence of dissection. Atherosclerotic calcification is present. Lymph nodes: Within normal limits. Tubes, Catheters, and Lines: Cardiac pacing device is in good position. Soft tissues: Unremarkable. Bones:There is a comminuted fracture of the surgical neck and head of the left humerus. Age-appropri ate degenerative changes are present. CT scan of the thoracic spine recons: No acute fractures or subluxations are present. CT scan of the lumbar spine recons: Age-appropriate degenerative changes are present. There is a rig ht convex lumbar scoliosis. No acute fractures or subluxations are present. ABDOMEN: Liver: Normal density. No measurable mass. Portal, Superior Mesenteric, and Splenic Veins: Unremarkable. Gallbladder and Biliary Tract: Status post cholecystectomy. There is unchanged size of the extrahepa tic bile duct. Pancreas: There is again seen fatty atrophy of the pancreas. No inflammatory process is seen. Spleen: Normal. Adrenals: No masses seen. Kidneys: Normal size, contour and axis. No radiodense stones or obstructive uropathy. No masses seen. Abdominal Aorta: Abdominal portion non-dilated. Atherosclerotic calcification is present. Bowel: No obstruction or bowel wall thickening. No evidence of appendicitis. There are diverticula s een in the colon but no evidence of acute diverticulitis. Peritoneal Cavity: No ascites, collection or mesenteric inflammatory response. No free air. Lymph Nodes: Within normal limits. Bones: Within normal limits for the patient's age. Soft Tissues: Unremarkable. PELVIS: Bladder: Symmetric distention, no gross wall thickening. Reproductive Organs: The uterus is absent. Lymph Nodes: Within normal limits. Bones: Within normal limits. IMPRESSION: 1. No evidence of acute thoracic injury. 2. No acute abdominal or pelvic organ injury. 3. No acute fracture or subluxation in the thoracic or lumbar spine. RADIATION DOSE DELIVERED: Total DLP DATA REPOSITORY: All CT scans at this facility are submitted to the National Radiology Data Registry (NRDR) Dose Index Registry (DIR) with the [employer] ([employer]). RADIATION OPTIMIZATION: All CT scans at this facility use at least one of these dose optimization te chniques: automated exposure control; mA and/or kV adjustment per patient size (includes targeted exa ms where dose is matched to clinical indication); or iterative reconstruction.
--- NOTE | 2023-11-25 15:54 | DI.CT_ITS ---
Exam(s) CT HEAD CERV SPINE FACIAL WO EXAM: CT HEAD CERV SPINE FACIAL WO CLINICAL HISTORY: trauma, on eliquis. TECHNIQUE: Imaging Protocol: Axial computed tomography images with coronal and sagittal reformatted images were created and reviewed COMPARISON: CT HEAD WITHOUT CONTRAST from 07/04/2008 FINDINGS: CT Head: Ventricles and Extra axial spaces: Normal in size and morphology for the patient's age. Hemorrhage: None. Cerebral parenchyma: Normal. Midline shift: None. Brainstem/Cerebellum: Normal. Calvarium: Normal. Visualized Paranasal sinuses/Mastoids: Clear. Soft Tissues: Unremarkable. CT Face: Facial Bones: No definite fracture is noted in facial bones. Sinuses and Mastoids: Unremarkable. Bilateral hearing aids. Globes, extraocular muscles, optic nerves and retrobulbar fat: Normal. Upper aerodigestive tract: Normal. Mandible and bilateral temporomandibular joints: Normal. Soft tissues: A subcutaneous hematoma overlying the left cheek. CT Cervical Spine: Bones: No acute fracture or subluxation. Age-appropriate degenerative changes are seen in the cervica l spine. Soft Tissues: Unremarkable. Lung Apices: Clear. IMPRESSION: 1. No acute intracranial process. 2. No acute fracture or subluxation in the cervical spine. 3. No acute facial fracture. 4. Cutaneous hematoma in the left cheek. RADIATION DOSE DELIVERED: Total DLP DATA REPOSITORY: All CT scans at this facility are submitted to the National Radiology Data Registry (NRDR) Dose Index Registry (DIR) with the [employer] ([employer]). RADIATION OPTIMIZATION: All CT scans at this facility use at least one of these dose optimization te chniques: automated exposure control; mA and/or kV adjustment per patient size (includes targeted exa ms where dose is matched to clinical indication); or iterative reconstruction.
--- NOTE | 2023-11-25 15:57 | W.ED.GENAD ---
Discharge Plan Disposition Patient Disposition: Admit to [facility] Discharge Details Clinical Impression: Fracture, humerus closed, Acute hypokalemia Admit Date/Time: 11/25/23 21:03 Admit Provider: Nirav Laboy Attending Provider: Nirav Laboy Primary Care Provider: Vicenta Freed ED Provider: Misa Smith HPI General Date/Time Provider Initiated Documentation: 11/25/23 15:43. HPI Narrative: Elaina is an 83-year-old female on anticoagulation who presents to the emergency department today for evaluation of fall. She reports that she fell while turning outside her home, landed on the ground on her left side. She currently is complaining of pain to her left shoulder that radiates down her arm with any movement. She also has a bruise to the left cheek. She currently denies headache, dizziness, nausea/vomiting, difficulty breathing, abdominal pain, extremity numbness/tingling or weakness. Says she was feeling well prior to incident. She does have a history of chronic A-fib, asthma, T2DM, pacemaker placement, and peripheral artery and vascular disease. Physical exam remarkable for bruise to left cheek. PERRL, EOMs intact. Clear speech. Patient is alert and oriented x 3. No scalp tenderness/bogginess/deformity. Full painless range of motion to C-spine, no C-spine/T-spine/L-spine step-off/tenderness/deformity. No ecchymosis noted to trunk or back. She does have significant swelling to her anterior left shoulder, pain with any movement or palpation of arm. Good hand grasp to left hand. Abdomen is soft, nondistended, nontender to palpation. Easy work of breathing, lung sounds clear bilaterally. Normal heart sounds. Mild swelling and bruising noted to left lateral knee. 5 out of 5 muscle strength upper and lower extremities, sensation grossly intact. DDx includes was not limited to: Intracranial hemorrhage, fracture, dislocation, pneumothorax/hemothorax, cardiac contusion, other intra-abdominal pathology, soft tissue injury I independently interpreted the following tests; EKG notable for A-fib, rate 91, no changes consistent with acute ischemia. CBC reassuring. CMP notable for mild hypokalemia, potassium 3.3. TSH slightly elevated at 6.23. Coags reassuring. Left shoulder x-ray significant for acute comminuted fracture involving proximal left humerus impacted through the surgical neck. Head CT, CT C-spine/T-spine/L-spine and CT abdomen/pelvis all unremarkable, no acute findings. Discussed case with [facility] [place]ist Dr. Samaniego, this may require surgical repair but is not to be done on an emergent basis. Recommend sling and pain control, with range of motion out of his sling a couple times a day being sure to mobilize the wrist, elbow, and fingers. As patient requires significant narcotics for pain control and is unable to get up bed without assistance, patient to be admitted for observation until a caregiver, is able to stay with her due to safety concerns for patient with falls on Eliquis. Discussed case with Dr. Laboy, hospitalist. Patient to be admitted to inpatient care unit for observation. Related Data Home Medications ?Medication ?Instructions ?Recorded ?Confirmed multivitamin 1 ea PO DAILY 11/05/12 11/25/23 compress.stocking,knee,reg,lrg #1 ea 03/20/21 11/11/23 calcium carb 1,200 mg-mag hydrox 10 ml PO PRN PRN 06/23/21 11/25/23 270 mg-simeth 80 mg/10 mL oral susp (Mylanta Coat-Cool) blood-glucose meter (OneTouch #1 ea 07/24/21 11/11/23 Verio Meter) lancing device with lancets kit #1 ea 07/24/21 11/11/23 (OneTouch Delica Plus Lancing Device kit) acetaminophen 500 mg tablet 1,000 mg (2 x 500 mg) PO Q8H PRN 05/26/22 11/25/23 pain #90 tabs docusate sodium 100 mg capsule 100 mg PO BID #30 caps 05/26/22 11/25/23 (Colace) ketoconazole 2 % topical cream 1 applic topical DAILY 3 months 02/23/23 11/25/23 #60 grams albuterol sulfate 90 mcg/actuation 2 puff inhalation Q4H PRN PRN 05/13/23 11/25/23 aerosol inhaler (ProAir HFA) shortness of breath or wheezing ##3 furosemide 20 mg tablet 20 mg PO BID edema #180 tabs 05/13/23 11/25/23 metoprolol tartrate 25 mg tablet See Rx Instructions .Route 05/29/23 11/25/23 .COMPLEX #90 tabs potassium chloride 20 mEq 20 meq PO DAILY #90 tabs 07/19/23 11/25/23 tablet,extended release blood sugar diagnostic (OneTouch #200 ea 07/29/23 11/11/23 Verio test strips) fluticasone propionate 110 2 puff inhalation BID #3 08/11/23 11/25/23 mcg/actuation HFA aerosol inhaler inhalations beclomethasone dipropionate 40 2 inh inhalation BID #10.6 grams 08/18/23 11/25/23 mcg/actuation HFA breath activated aerosol (Qvar RediHaler) levothyroxine 75 mcg tablet 75 mcg PO DAILY #90 tabs 09/09/23 11/25/23 pen needle, diabetic 31 gauge x #100 ea 10/01/23 11/11/23/ (BD Ultra-Fine Mini Pen Needle) sucralfate 1 gram tablet 1 g PO BID PRN gastric pain #60 11/01/23 11/25/23 tabs apixaban 5 mg tablet (Eliquis) 5 mg PO BID #180 tab-caps 11/11/23 11/25/23 lancets 33 gauge (OneTouch Delica #100 ea 11/17/23 Plus Lancet) insulin glargine 100 unit/mL (3 10 unit (0.1 mL) subcut DAILY for 11/21/23 11/25/23 mL) subcutaneous pen mgmt of diabetes, E11.9, with A1C goal < 7.5 #15 mL Previous Rx's ?Medication ?Instructions ?Recorded compress.stocking,knee,reg,lrg #1 ea 03/20/21 blood-glucose meter (OneTouch #1 ea 07/24/21 Verio Meter) lancing device with lancets kit #1 ea 07/24/21 (OneTouch Delica Plus Lancing Device kit) acetaminophen 500 mg tablet 1,000 mg (2 x 500 mg) PO Q8H PRN 05/26/22 pain #90 tabs docusate sodium 100 mg capsule 100 mg PO BID #30 caps 05/26/22 (Colace) ketoconazole 2 % topical cream 1 applic topical DAILY 3 months 02/23/23 #60 grams albuterol sulfate 90 mcg/actuation 2 puff inhalation Q4H PRN PRN 05/13/23 aerosol inhaler (ProAir HFA) shortness of breath or wheezing ##3 furosemide 20 mg tablet 20 mg PO BID edema #180 tabs 05/13/23 metoprolol tartrate 25 mg tablet See Rx Instructions .Route 05/29/23 .COMPLEX #90 tabs potassium chloride 20 mEq 20 meq PO DAILY #90 tabs 07/19/23 tablet,extended release blood sugar diagnostic (OneTouch #200 ea 07/29/23 Verio test strips) fluticasone propionate 110 2 puff inhalation BID #3 08/11/23 mcg/actuation HFA aerosol inhaler inhalations beclomethasone dipropionate 40 2 inh inhalation BID #10.6 grams 08/18/23 mcg/actuation HFA breath activated aerosol (Qvar RediHaler) levothyroxine 75 mcg tablet 75 mcg PO DAILY #90 tabs 09/09/23 pen needle, diabetic 31 gauge x #100 ea 10/01/2307/08 (BD Ultra-Fine Mini Pen Needle) sucralfate 1 gram tablet 1 g PO BID PRN gastric pain #60 11/01/23 tabs apixaban 5 mg tablet (Eliquis) 5 mg PO BID #180 tab-caps 11/11/23 lancets 33 gauge (Oneuch Delica #100 ea 11/17/23 Plus Lancet) insulin glargine 100 unit/mL (3 10 unit (0.1 mL) subcut DAILY for 11/21/23 mL) subcutaneous pen mgmt of diabetes, E11.9, with A1C goal < 7.5 #15 mL Allergies Allergy/AdvReac Type Severity Reaction Status Date / Time ranitidine Allergy Severe WHEEZING Verified 11/25/23 16:22 cefadroxil Allergy Mild Other (See Verified 11/25/23 16:22 Comment) empagliflozin (From AdvReac Severe UTI Verified 11/25/23 16:22 Jardiance) metformin AdvReac Severe Diarrhea Verified 11/25/23 16:22 ciprofloxacin AdvReac Intermediate WEAKNESS Verified 11/25/23 16:22 pneumococcal 13-valent AdvReac Intermediate temp and Verified 11/25/23 16:22 conjugate to (From Prevnar body aches 13 (PF)) sucralfate AdvReac Intermediate N/V Verified 11/25/23 16:22 levofloxacin AdvReac Other (See Verified 11/25/23 16:22 Comment) General Stated Complaint: Fall/Non TraumaCriteria DEXTER: 3 Review of Systems Narrative: see HPI Exam Const General: cooperative, in distress (pain) and frail appearing Orientation: alert and oriented x3 HENMT Head: no palpable skull fracture and normocephalic Ears: hearing grossly normal bilaterally and other (hearing aids in place) General nose exam: external nose normal Face and sinus: other (ecchymosis and swelling to L cheek) Mouth: oral mucosae normal Neck Neck: normal visual inspection, full ROM and no lymphadenopathy Resp Effort & Inspection: normal respiratory effort and able to speak in complete sentences Auscultation: clear to auscultation bilaterally Cardio Rate: regular rate Rhythm: regular rhythm GI Inspection: normal to inspection and non-distended Palpation: soft, not firm, no guarding and nontender Auscultation: normal bowel sounds Rectal Exam - female: visual inspection normal and normal sphincter tone Back/Spine/Pelvis Cervical Spine: normal cervical lordosis and cervical ROM normal Thoracic/Lumbar Spine: thoracic and lumbar spine normal to inspection Skin General skin exam: no rashes or lesions noted Trauma: no lacerations or abrasions Extrem Right upper extremity: normal to inspection Left upper extremity: shoulder/upper arm Details: tenderness, abnormal ROM and deformity Location: of the proximal humerus; no abrasions, no lacerations, no ecchymosis, no crepitus and no foreign bodies Left lower extremity: knee Details: tenderness, swelling and ecchymosis Course Vital Signs Vital signs: Vital Signs Temperature 36.7 C 11/25/23 15:42 Pulse 112 H 11/25/23 15:42 Respiratory Rate 11/25/23 15:42 Blood Pressure 146/75 H 11/25/23 15:42 Pulse Oximetry 98 11/25/23 15:42 Temperature 36.7 C 11/25/23 15:42 Temperature Source Oral 11/25/23 15:42 Pulse 112 H 11/25/23 15:42 Respiratory Rate 20 11/25/23 15:42 Respiratory Effort Normal 11/25/23 15:46 Blood Pressure 146/75 H 11/25/23 15:42 Pulse Oximetry 98 11/25/23 15:42 Oxygen Delivery Method Room Air 11/25/23 15:42 Oxygen Flow Rate 0 11/25/23 15:42 Pain Level 10 11/25/23 15:54 Medical Decision Making Imaging Data Radiologic Study: Radiologist's impression: Exam(s) XR SHOULDER LT COMPLETE 2+V EXAM: XR SHOULDER LT COMPLETE 2+V CLINICAL HISTORY: L shoulder pain s/p fall. TECHNIQUE: 2D digital imaging was performed of the left shoulder. Three images were obtained. AP, Grashey and Y views were obtained. COMPARISON: No exams were available for comparison FINDINGS: BONES: There is an acute comminuted fracture involving the proximal left humerus. There is an impacted component through the surgical neck. There is also a mildly displaced comminuted component involving the greater tuberosity. No bony destructive lesion is seen. JOINTS: No dislocation present. SOFT TISSUE: Normal. IMPRESSION: Comminuted impacted fracture involving the proximal left humerus Radiologic Study #2: Radiologist's impression: Exam(s) CT HEAD CERV SPINE FACIAL WO EXAM: CT HEAD CERV SPINE FACIAL WO CLINICAL HISTORY: trauma, on eliquis. TECHNIQUE: Imaging Protocol: Axial computed tomography images with coronal and sagittal reformatted images were created and reviewed COMPARISON: CT HEAD WITHOUT CONTRAST from 07/04/2008 FINDINGS: CT Head: Ventricles and Extra axial spaces: Normal in size and morphology for the patient's age. Hemorrhage: None. Cerebral parenchyma: Normal. Midline shift: None. Brainstem/Cerebellum: Normal. Calvarium: Normal. Visualized Paranasal sinuses/Mastoids: Clear. Soft Tissues: Unremarkable. CT Face: Facial Bones: No definite fracture is noted in facial bones. Sinuses and Mastoids: Unremarkable. Bilateral hearing aids. Globes, extraocular muscles, optic nerves and retrobulbar fat: Normal. Upper aerodigestive tract: Normal. Mandible and bilateral temporomandibular joints: Normal. Soft tissues: A subcutaneous hematoma overlying the left cheek. CT Cervical Spine: Bones: No acute fracture or subluxation. Age-appropriate degenerative changes are seen in the cervical spine. Soft Tissues: Unremarkable. Lung Apices: Clear. IMPRESSION: 1. No acute intracranial process. 2. No acute fracture or subluxation in the cervical spine. 3. No acute facial fracture. 4. Cutaneous hematoma in the left cheek. Radiologic Study #3: Radiologist's impression: Exam(s) CT CHEST/ABD/PEL W CT THORACIC LUMBAR SPINE REC EXAM: CT CHEST/ABD/PEL W and CT thoracic and lumbar spine recons CLINICAL HISTORY: trauma, landed on L shoulder TECHNIQUE: Imaging Protocol: Axial computed tomography images with coronal and sagittal reformatted images were created and reviewed CONTRAST MATERIAL: Intravenous: Omnipaque 350 contrast volume:100 mL Oral: No COMPARISON: CT CT CHEST PE CTA from 12/31/[address] ABDOMEN PELVIS W from 04/07/2023 FINDINGS: CHEST: Tracheobronchial tree: Patent where visualized. Pulmonary parenchyma: No consolidation or dominant measurable mass. There is an area of atelectasis seen in the medial aspect of the right middle lobe. Visualized thyroid gland: Unremarkable. Mediastinum and Maricel: No dominant adenopathy or fluid collection. The esophagus is unremarkable. There is a moderate size hiatal hernia. Pleura: No effusion or pneumothorax. Heart: Mild cardiomegaly. Coronary artery calcifications are present. Cardiac monitoring device and wires are in place. No pericardial effusion. Pulmonary arteries: No central pulmonary embolism is present. Aorta: Thoracic aorta non-dilated. There is no evidence of dissection. Atherosclerotic calcification is present. Lymph nodes: Within normal limits. Tubes, Catheters, and Lines: Cardiac pacing device is in good position. Soft tissues: Unremarkable. Bones:There is a comminuted fracture of the surgical neck and head of the left humerus. Age-appropriate degenerative changes are present. CT scan of the thoracic spine recons: No acute fractures or subluxations are present. CT scan of the lumbar spine recons: Age-appropriate degenerative changes are present. There is a right convex lumbar scoliosis. No acute fractures or subluxations are present. ABDOMEN: Liver: Normal density. No measurable mass. Portal, Superior Mesenteric, and Splenic Veins: Unremarkable. Gallbladder and Biliary Tract: Status post cholecystectomy. There is unchanged size of the extrahepatic bile duct. Pancreas: There is again seen fatty atrophy of the pancreas. No inflammatory process is seen. Spleen: Normal. Adrenals: No masses seen. Kidneys: Normal size, contour and axis. No radiodense stones or obstructive uropathy. No masses seen. Abdominal Aorta: Abdominal portion non-dilated. Atherosclerotic calcification is present. Bowel: No obstruction or bowel wall thickening. No evidence of appendicitis. There are diverticula seen in the colon but no evidence of acute diverticulitis. Peritoneal Cavity: No ascites, collection or mesenteric inflammatory response. No free air. Lymph Nodes: Within normal limits. Bones: Within normal limits for the patient's age. Soft Tissues: Unremarkable. PELVIS: Bladder: Symmetric distention, no gross wall thickening. Reproductive Organs: The uterus is absent. Lymph Nodes: Within normal limits. Bones: Within normal limits. IMPRESSION: 1. No evidence of acute thoracic injury. 2. No acute abdominal or pelvic organ injury. 3. No acute fracture or subluxation in the thoracic or lumbar spine. Quality:SDOH Health Related Social Needs: No Data to Display PFSH All Active Problems Acute hypokalemia (Acute) Fracture, humerus closed (Acute) Phlegm in throat (Acute) sensation in throat then brings it up (vs reflux or vomit) Hypovitaminosis D (Acute) Thyroid nodule (Acute 01/28/15) 01/01/15 US 4mm nodule isthmus 05/15/15 US 4.5 nodule isthmus, ?7x5 nodule right Hypothyroidism (Chronic 01/02/13) States her muscles are getting sore, Especially in L arm, and also bone pain (pt read insert from pharmacy) States her knees are bothering as in, weakness and pain, as well, fluid is building up. PAD (peripheral artery disease) (Acute) Right - asymptomatic. Pt declines referral to [facility] vascular at this time. 06/2023. EO Asthma (Chronic 01/18/13) [employer] [facility] Rx per insurance, 05/2023, ik .. possible asthma; PFTs normal 04/27/2012.07/2013 Hypomagnesemia (Acute) Noted @ ED, 02/2021 .. replenished. Monitor [ ] Low serum albumin (Acute) Amiodarone pulmonary toxicity (Acute) Diastolic heart failure (Acute) Chronic atrial fibrillation with RVR (Chronic) On deep vein thrombosis (DVT) prophylaxis (Acute) Ingrown toenail (Acute) Onychomycosis (Acute) PVD (peripheral vascular disease) (Chronic) Venous insufficiency (Acute) Sacroiliac joint dysfunction of right side (Acute) Hiatal hernia (Chronic) 01/25/23 5cm ([facility]) Nail dystrophy (Acute) Hypokalemia (Acute) Critically low, SOB (shortness of breath) (Acute) Cont post hospitalization despite ABx/Recovery from PNA Diabetes mellitus due to underlying condition, uncontrolled, with hyperglycemia (Acute) A1C rise due to inactivity 2' back/knee pain & steroid use.. winter 2021 Insulin dose changed (Acute) Atrial fibrillation (Acute 07/06/11) normal echo and cath 2008; flecanide Rx; apixiban; echo 09/2013 EF 60%.. Type 2 diabetes mellitus (Chronic) A1C jump 2' limited ambulation & steroid use. [ ] Insulin due to intolerance of PO Rx, ik, 03/2022.. Recent A1C increase, from pre-diabetes to DM this past year.. Edema (Acute) LE edema , R>L .. notable, possibly 2' Jardiance intolerance, but possible lymphedema (?) Medication intolerance (Acute) Unable to tolerate Jardiance (candidiasis!), Metformin. Dysphagia, unspecified (Acute 07/07/12) EGD KD: mild esophagitis 10/[address] Ragsdale 09/23/[address] Duncan, [facility], [place], [place]. Impression: Gerd Dysphagia. Rule out secondary to esophageal ulcer,dysmotility, or from perhaps a failing Singh. recommeded: Upper GI Gerd protocaol discussed w/ pt. panel 2,B12 If pt continues sx, may want to repeat upper endoscopy. Plans to see her back in follwup. Gastroesophageal reflux disease (Acute 07/07/12) Managed with PPI for years, worsening x 2-3 months. Now associated with LUQ tenderness, 05/26/17. []H.pylori [] U/S LUQ ik IMPROVED with weight loss, 06/02.19, ik EGD rescheduled with Dr. Escobar (2' [place] not yet taking appts @ [facility]), 05/26/17 .. Consulted, EGD sched for 06/29/17. note: s/p Singh, hernia repair, and esoph dilation (2013) 10/29/21 GI visit with f/u in 6w Atrophic gastritis without mention of hemorrhage (Acute 07/07/12) History of hiatal hernia (Acute) Reactive airway disease (Chronic) Medical History Iatrogenic hyperthyroidism Levothyroxine stopped, rechecked 08/14 (1 month later than planned) with very high TSH, so re-starting Rx High risk medication use Stopped (2022) ..Amiodarone since July, evaluating for tox (06/20/22 d/w [facility]) 2' SOB w/NEG CTA & no improvement post diuresis (furosemide 40) Elevated serum free T4 level Cardiology STOPPED levothyroxine, 05/2023..high TSH, High T4, 03/2022 ... Hx low TSH and high T4 (08/2021) Sepsis ICU during [facility] Hospitalization (pneumonia with quick onset/worsening!) Lipedema of lower extremity nodular, symm, tender inner upper calves Atrial tachycardia per Cardiology, [facility] .. Admitted post xfer from [facility] ED (08/08/21). EF 50%. Amiodarone started; Flecainide stopped. Amiodarone stopped 2022 concern for pulm tox Pacemaker (09/16/17) Sees DARNELL Tejada ([facility]). Dual lead Medtronic pacemaker Adapta .. Placed 2013, Dr. Edin Robles. 99Medtronic dual lead pacemaker implanted 12/04/2013 .. Adapta [id number] .. RA Medtronic [id number], 11/2013.. RV [id number] 12/04/2013)) Atrioventricular block (07/07/12) pacemaker placement 12/04/2013; 5 sec asystoles last interrogation, 03/2017. Lymphedema nonpitting edema -- seems lymphedema -- appreciate pt eval Arthropathy of left knee Arthritis of left knee s/p L TKA 05/26/22 Failed fundoplication Pyrosis Lesion of face or BCCA left lateral canthus 09/14/[address] Dillon 09/22/21 sutures removed Left knee pain DEPO MEDROL 01/14/22 Arthrocentesis @ [facility] (during hosp stay for atrial tach), NEG.. referred to local ortho ([facility]). High risk medications (not anticoagulants) long-term use Amiodarone started, 07/2021 (after years on flecainide).. [ ] Ophtho, EP, Echo, PFTs .. short-term lasix. Cardiomyopathy Due to atrial tachycardia.. xferred to [facility], PM reprogrammed. Amiodarone replacing flecainide. Low-dose diuretics (see 08/11/21 [facility] Cardio note).. Vulvovaginal candidiasis 2' Jardiance .. trial monostat or diflucan . STOP Jardiance if janae returns. Esophagitis determined by biopsy Macular pucker Leg edema Leg weakness With standing .. Hx lumbar stenosis .. Hx spinal injection (?) Muscle spasm of left shoulder area Trapezius MM Spasm .. Deformity of toenail Right lumbar radiculopathy Spinal stenosis of lumbar region High risk medications (not anticoagulants) long-term use Flecainide - started by Dr. Douglass Hot flashes Hot Flashes x 6 mos, 06/13/19. Piriformis syndrome of right side Pelvic pain (02/07/13) Trochanteric bursitis, right hip (05/19/16) Primary osteoarthritis of right knee (01/10/17) s/p RT TKR Fall 2017 Postnasal drip (01/09/15) Osteoarth NOS-unspec (07/06/11) Neurogenic pain of right lower extremity (09/19/15) Multinodular goiter (12/19/15) Impaired glucose tolerance (03/10/12) Hyperlipidemia (07/07/12) Family hx-breast malignancy (11/13/12) SISTER IN 60s Exertional dyspnea (01/28/15) Essential hypertension (01/18/13) FRS 13% .. 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 [facility] q6m x1 year, then annually. --[facility] 06/2016 Shakira Diaz MD Post-radiation association with new abd pain (?), ik, 05/26/17 Controlled type 2 diabetes mellitus without complication, without long-term current use of insulin (03/26/16) POOR CTL, 01/2021 (A1C 7.6) .. A1C goal 7.5 ... 7.1 today, 08/07/20. 6.8/6.9 in 11/2016. A1C 6.5 post weight loss and focused effort on reducing carbs/sweets. 06/02/18, michelle A1C remains @ 6.5 08/2018, good job! Chronic eczematoid otitis externa of both ears (01/22/16) Dr Jeffrey Cardenas Sensorineural hearing loss of both ears Urge incontinence urgency/frequency History of postmenopausal bleeding Symptomatic bradycardia Surgical History History of total left knee replacement (TKR) (05/26/22) History of total knee arthroplasty (05/26/22) Status post right knee replacement Dr. Del Cid, Ortho. She is happy with knee, able to step down from sidewalk w/o fear per 03/02/18 appt discussion. COntinues to do well; seeing ortho for possible neuropathic pain (outer rt calf). upper GI Series (10/05/17) for sx of epigastric dysphagia,GERD. Done by Dr. Duncan. Impression: Moderate sized Hiatal Hernia. Marked gastroesophageal reflux. sentinal lymph node dissection (07/01/16) NEG for mets from endometrium Replacement of total knee joint (12/03/16) R knee Dr Del Cid Pacemaker (12/04/13) Hyseterectomy, Total Laparoscopic w/ BSO (07/01/16) +Endometrial cancer Hernia, hiatal (banding) EGD - MAC (06/29/17) Colonoscopy - IV Sedation (03/17/16) Cholecystectomy Extraction of cataract B/L Cardiac Cath, 2008 History of Surgical Procedure a. Cholecystectomy. b. Bilateral cataract surgery. c. Hiatal hernia repair 2008. d. Esophagus stretching 2013 - Dr. Ragsdale. e. Pacemaker 12/04/2013 Family History Mother , old age at age 98. No problems noted. Father , Heart disease at age 64. Heart disease [place] Sister , Colon Ca Personal history of malignant neoplasm Sister , Heart problems at age 72. Personal history of malignant neoplasm Breast cancer, dx'ed in her 60s Heart disease Sister Hypertensive disorder, systemic arterial Diabetes Sister Diabetes Sister Hypertensive disorder, systemic arterial Brother , Parkinson's at age 75. Personal history of malignant neoplasm Brother Parkinson's disease Brother , Heart condition at age 62. Hypertensive disorder, systemic arterial Diabetes Brother Hypertensive disorder, systemic arterial Diabetes Social History Smoking/Tobacco Use Status: Never Smoking risk assessment performed?: Yes Alcohol Intake: never Drug use: Never Substance use type: does not use Adopted: No Foster care: No Housing: apartment Number of Children: 0 number of grandchildren: 0 Communication Needs: Corrective Lenses current occupation: retired from [employer] Pets and animals: No Current gender identity: female What is your relationship status?: Panel score (0-1 are the most socially isolated patients): 0 Seatbelt use: always Working smoke detector in home: Yes Fire extinguisher in home: Yes Carbon monox detector in home: Yes Firearms in home: No Do you feel safe at home: Yes Do you feel safe in your relationship?: Yes
--- NOTE | 2023-11-25 16:00 | DI.RAD_ITS ---
Exam(s) XR KNEE LT 4V AP,LAT,IFEANYI,PAT EXAM: XR KNEE LT 4V AP,LAT,IFEANYI,PAT CLINICAL HISTORY: L knee bruising s/p fall. TECHNIQUE: 2D digital imaging was performed. Three images were obtained. AP, AP tunnel and lateral views were obtained. 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 No fracture or dislocation. JOINTS: The orthopedic hardware is in good position. No evidence of hardware loosening. SOFT TISSUE: There is soft tissue swelling around the knee. No radiopaque foreign body is identified . IMPRESSION: 1. Stable left total knee replacement. 2. No acute fracture or dislocation.. DATA REPOSITORY: RADIATION DOSE DELIVERED:
[2023-11-25 16:02] LABS: HCT 37.5 % (36.0-46.0); HGB 12.7 g/dL (11.2-15.7); MCH 31.7 pg (27.0-33.0); MCHC 33.9 % (32.0-36.0); MCV 94 fL (80-95); MPV 11.2 fL (8.0-11.0); Platelet Count 190 10^3/uL (130-400); RBC 4.01 10^6/uL (3.93-5.22); RDW 12.4 % (11.7-14.6); WBC 6.94 10^3/uL (4.4-10.8)
[2023-11-25] MEDS: HYDROmorphone 2 MG/ML SYR 0.5 MG IVP (16:16)
[2023-11-25 16:50] LABS: ALT 18 U/L (14-59); AST 22 U/L (15-37); Albumin 3.3 g/dL (3.4-5.0); Alkaline Phosphatase 69 U/L (46-116); BUN 12 mg/dL (7-18); Bilirubin, Total 0.59 mg/dL (0.2-1.0); CREATININE 0.8 mg/dL (0.55-1.02); Calcium 8.6 mg/dL (8.5-10.1); Chloride 106 mmol/L (98-107); Estimated GFR 72.61 (mL/min/1.73m2); Glucose 110 mg/dL (74-106); INR 1.1 (0.9-1.1); PTT Activated 24.7 sec (23.6-32.8); Potassium 3.3 mmol/L (3.5-5.1); Sodium 142 mmol/L (136-145); Total Protein 6.7 g/dL (6.4-8.2)
[2023-11-25] MEDS: Omnipaque 350 MG/ML 100 ML BTL IJ (17:01)
[2023-11-25] MEDS: Normal Saline - Diluent 50 ML VIAL IJ (17:02)
--- NOTE | 2023-11-25 19:51 | NUR.NOTE ---
Nursing Note: Assumed care of pt. Report from [facility] [place]. Introduced self to pt. Pt has bruising to L side of face. Pt asking what is happening next. Will touch base with provider and report back
[2023-11-25] MEDS: Acetaminophen 325 MG TAB 650 MG PO (20:18)
[2023-11-25] MEDS: oxyCODONE 5 MG TAB PO (20:18)
--- NOTE | 2023-11-25 20:22 | NUR.NOTE ---
Nursing Note: pt is not comfortable going home and caring for herself alone. It took [facility] and this nurse to get the patient into a standing position and she was not steady at all just standing. Placed sling on L arm and straightened up the bedding. [facility] and this nurse got pt back into bed and resting. Pt is in tears from the pain
--- NOTE | 2023-11-25 20:45 | HPE_ITS ---
Date of service: 11/25/23 Time of Service: 20:45 Assessment and Plan Assessment and plan (1) Fracture, humerus closed: Start date: 11/25/23 Status: Acute Assessment and plan: This is an 83-year-old lady who had a mechanical fall while inspecting her car prior to presented to the ED and was found to have a comminuted, impacted proximal left humeral fracture. He is in sling and swath and will be seen by OT and PT in the morning for evaluation for safety with ambulation. She does use a cane to walk outside only but does need both arms to ambulate in her home. She does live alone. She will be given Tylenol with oxycodone for severe pain and hydromorphone IV for more severe pain, not responding to the first. Patient is a DNR/DNI. Qualifiers: Encounter type: initial encounter Fracture alignment: nondisplaced F racture morphology: other fracture Humerus Location: proximal Laterality: left Qualified Code(s): S42.295A - Other nondisplaced fracture of upper end of left humerus, initial encounter for closed fracture (2) Acute hypokalemia: Start date: 11/25/23 Status: Acute Assessment and plan: Patient is on chronic diuretics with chronic edema which is stable. She has had hypokalemia in the past and is on potassium supplement which he takes with she is slightly low normal and was given oral potassium dose in the ED and her usual dose will be increased to twice daily from once daily. Trend labs. (3) Hypomagnesemia: Start date: 11/25/23 Status: Acute Assessment and plan: Patient has a history of hypomagnesemia and is not able to tolerate magnesium oxide because of upset stomach. IV magnesium sulfate 2 g for repletion and follow-up lab in the morning. Trial of magnesium gluconate daily for maintenance. (4) Chronic atrial fibrillation with RVR: Status: Chronic Assessment and plan: Controlled rate with patient to continue outpatient medical therapy. She is on Eliquis. (5) Type 2 diabetes mellitus: Status: Chronic Assessment and plan: Hold outpatient medical therapy and do glucometers before meals and at bedtime with short acting insulin coverage on sliding scale. Qualifiers: Diabetes mellitus complication status: without complication Diabetes mellitus alf insulin use: with carpenter rough use Qualified Code(s): E11.9 - Type 2 diabetes mellitus without complications; Z79.4 - manager brand (current) use of insulin History of Present Illness History of Present Illness Chief Complaint: Left arm injury after fall at home while turning outside Narrative: This is an 83-year-old female patient who is on anticoagulation, Eliquis with history of chronic atrial fibrillation who had a mechanical fall at home outside of her house while looking at her car injuring her left arm and left cheek with a bruise and hematoma over her cheek and in the ED she was found to have a comminuted, impacted closed fracture of her proximal left humerus. She will usually use a cane to walk outside only and is still driving. She is having extreme pain with her arm in a sling and does live alone and cannot stand without using both arms. She is unsafe to go home and is requiring IV Dilaudid and then oral Percocet for pain control. She also has hypokalemia and hypomagnesemia which both appear to be chronic and recurrent with the patient on diuretics. She denies any orthostatic symptoms, she has no respiratory symptoms and no focal neurological complaints prior to and after her mechanical fall. She feels she simply lost her balance when she was looking at her car for leaks. Imaging of her head, C-spine and thoracic spine as well as abdomen were otherwise unrevealing for acute processes. She will be admitted for observation and repletion of her electrolytes as well as pain management requiring Tylenol with narcotics. The patient feels best if she lies very still without movement in bed with the arm sling. PT and OT to see her to evaluate for home safety versus placement of a nursing facility for recovery. Family needs to be engaged if available but she only has a niece who lives locally. Patient is a DNR/DNI after reviewing her CODE STATUS. There is no COLST form in her chart and should be filled out by her PCP and. Review of Systems Narrative: 13 point review of systems otherwise unrevealing or stable. PFSH All Active Problems Acute hypokalemia (Acute) Fracture, humerus closed (Acute) Phlegm in throat (Acute) sensation in throat then brings it up (vs reflux or vomit) Hypovitaminosis D (Acute) Thyroid nodule (Acute 01/28/15) 9/9/15 US 4mm nodule isthmus 05/15/15 US 4.5 nodule isthmus, ?7x5 nodule right Hypothyroidism (Chronic 01/02/13) States her muscles are getting sore, Especially in L arm, and also bone pain (pt read insert from pharmacy) States her knees are bothering as in, weakness and pain, as well, fluid is building up. PAD (peripheral artery disease) (Acute) Right - asymptomatic. Pt declines referral to [facility] at this time. 06/2023. EO Asthma (Chronic 01/18/13) [employer] Ellita Rx per insurance, 05/2023, ik .. possible asthma; PFTs normal 04/27/2012.07/2013 Hypomagnesemia (Acute) Noted @ ED, 02/2021 .. replenished. Monitor [ ] Low serum albumin (Acute) Amiodarone pulmonary toxicity (Acute) Diastolic heart failure (Acute) Chronic atrial fibrillation with RVR (Chronic) On deep vein thrombosis (DVT) prophylaxis (Acute) Ingrown toenail (Acute) Onychomycosis (Acute) PVD (peripheral vascular disease) (Chronic) Venous insufficiency (Acute) Sacroiliac joint dysfunction of right side (Acute) Hiatal hernia (Chronic) 01/25/23 5cm ([facility]) Nail dystrophy (Acute) Hypokalemia (Acute) Critically low, SOB (shortness of breath) (Acute) Cont post hospitalization despite ABx/Recovery from PNA Diabetes mellitus due to underlying condition, uncontrolled, with hyperglycemia (Acute) A1C rise due to inactivity 2' back/knee pain & steroid use.. winter 2021 Insulin dose changed (Acute) Atrial fibrillation (Acute 07/06/11) normal echo and cath 2008; flecanide Rx; apixiban; echo 09/2013 EF 60%.. Type 2 diabetes mellitus (Chronic) A1C jump 2' limited ambulation & steroid use. [ ] Insulin due to intolerance of PO Rx, ik, 03/2022.. Recent A1C increase, from pre-diabetes to DM this past year.. Edema (Acute) LE edema , R>L .. notable, possibly 2' Jardiance intolerance, but possible lymphedema (?) Medication intolerance (Acute) Unable to tolerate Jardiance (candidiasis!), Metformin. Dysphagia, unspecified (Acute 07/07/12) EGD KD: mild esophagitis 10/[address] Ragsdale 09/23/[address] Duncan, [facility], [place], [place]. Impression: Gerd Dysphagia. Rule out secondary to esophageal ulcer,dysmotility, or from perhaps a failing Singh. recommeded: Upper GI Gerd protocaol discussed w/ pt. panel 2,B12 If pt continues sx, may want to repeat upper endoscopy. Plans to see her back in follwup. Gastroesophageal reflux disease (Acute 07/07/12) Managed with PPI for years, worsening x 2-3 months. Now associated with LUQ tenderness, 05/26/17. []H.pylori [] U/S LUQ ik IMPROVED with weight loss, 06/02.19, ik EGD rescheduled with Dr. Escobar (2' [place] not yet taking appts @ [facility]), 05/26/17 .. Consulted, EGD sched for 06/29/17. note: s/p Singh, hernia repair, and esoph dilation (2013) 10/29/21 GI visit with f/u in 6w Atrophic gastritis without mention of hemorrhage (Acute 07/07/12) History of hiatal hernia (Acute) Reactive airway disease (Chronic) Medical History Iatrogenic hyperthyroidism Levothyroxine stopped, rechecked 08/14 (1 month later than planned) with very high TSH, so re-starting Rx High risk medication use Stopped (2022) ..Amiodarone since July, evaluating for tox (06/20/22 d/w [facility]) 2' SOB w/NEG CTA & no improvement post diuresis (furosemide 40) Elevated serum free T4 level Cardiology STOPPED levothyroxine, 05/2023..high TSH, High T4, 03/2022 ... Hx low TSH and high T4 (08/2021) Sepsis ICU during [facility] Hospitalization (pneumonia with quick onset/worsening!) Lipedema of lower extremity nodular, symm, tender inner upper calves Atrial tachycardia per Cardiology, [facility] .. Admitted post xfer from [facility] ED (08/08/21). EF 50%. Amiodarone started; Flecainide stopped. Amiodarone stopped 2022 concern for pulm tox Pacemaker (09/16/17) Sees DARNELL Tejada ([facility]). Dual lead Medtronic pacemaker Adapta .. Placed 2013, Dr. Edin Robles. 99Medtronic dual lead pacemaker implanted 12/04/2013 .. Adapta [id number] [id number] .. RA Medtronic [id number], 11/2013.. RV [id number] 12/04/2013)) Atrioventricular block (07/07/12) pacemaker placement 12/04/2013; 5 sec asystoles last interrogation, 03/2017. Lymphedema nonpitting edema -- seems lymphedema -- appreciate pt eval Arthropathy of left knee Arthritis of left knee s/p L TKA 05/26/22 Failed fundoplication Pyrosis Lesion of face or BCCA left lateral canthus 09/14/[address] Dillon 09/22/21 sutures removed Left knee pain DEPO MEDROL 01/14/22 Arthrocentesis @ [facility] (during hosp stay for atrial tach), NEG.. referred to local ortho ([facility]). High risk medications (not anticoagulants) long-term use Amiodarone started, 07/2021 (after years on flecainide).. [ ] Ophtho, EP, Echo, PFTs .. short-term lasix. Cardiomyopathy Due to atrial tachycardia.. xferred to [facility], PM reprogrammed. Amiodarone replacing flecainide. Low-dose diuretics (see 08/11/21 [facility] note).. Vulvovaginal candidiasis 2' Jardiance .. trial monostat or diflucan . STOP Jardiance if janae returns. Esophagitis determined by biopsy Macular pucker Leg edema Leg weakness With standing .. Hx lumbar stenosis .. Hx spinal injection (?) Muscle spasm of left shoulder area Trapezius MM Spasm .. Deformity of toenail Right lumbar radiculopathy Spinal stenosis of lumbar region High risk medications (not anticoagulants) long-term use Flecainide - started by Dr. Douglass Hot flashes Hot Flashes x 6 mos, 06/13/19. Piriformis syndrome of right side Pelvic pain (02/07/13) Trochanteric bursitis, right hip (05/19/16) Primary osteoarthritis of right knee (01/10/17) s/p RT TKR Fall 2018 Postnasal drip (01/09/15) Osteoarth NOS-unspec (07/06/11) Neurogenic pain of right lower extremity (09/19/15) Multinodular goiter (12/19/15) Impaired glucose tolerance (03/10/12) Hyperlipidemia (07/07/12) Family hx-breast malignancy (11/13/12) SISTER IN 60s Exertional dyspnea (01/28/15) Essential hypertension (01/18/13) FRS 13% .. 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 [facility] q6m x1 year, then annually. --[facility] 06/2016 Shakira Diaz MD Post-radiation association with new abd pain (?), michelle, 05/26/17 Controlled type 2 diabetes mellitus without complication, without long-term current use of insulin (03/26/16) POOR CTL, 01/2021 (A1C 7.6) .. A1C goal 7.5 ... 7.1 today, 08/07/20. 6.8/6.9 in 11/2016. A1C 6.5 post weight loss and focused effort on reducing carbs/sweets. 06/02/18, michelle A1C remains @ 6.5 08/2018, good job! Chronic eczematoid otitis externa of both ears (01/22/16) Dr Jeffrey Cardenas Sensorineural hearing loss of both ears Urge incontinence urgency/frequency History of postmenopausal bleeding Symptomatic bradycardia Surgical History History of total left knee replacement (TKR) (05/26/22) History of total knee arthroplasty (05/26/22) Status post right knee replacement Dr. Del Cid, Ortho. She is happy with knee, able to step down from sidewalk w/o fear per 03/02/18 appt discussion. COntinues to do well; seeing ortho for possible neuropathic pain (outer rt calf). upper GI Series (10/05/17) for sx of epigastric dysphagia,GERD. Done by Dr. Duncan. Impression: Moderate sized Hiatal Hernia. Marked gastroesophageal reflux. sentinal lymph node dissection (07/01/16) NEG for mets from endometrium Replacement of total knee joint (12/03/16) R knee Dr Del Cid Pacemaker (12/04/13) Hyseterectomy, Total Laparoscopic w/ BSO (07/01/16) +Endometrial cancer Hernia, hiatal (banding) EGD - MAC (06/29/17) Colonoscopy - IV Sedation (03/17/16) Cholecystectomy Extraction of cataract B/L Cardiac Cath, 2008 History of Surgical Procedure a. Cholecystectomy. b. Bilateral cataract surgery. c. Hiatal hernia repair 2008. d. Esophagus stretching 2013 - Dr. Ragsdale. e. Pacemaker 12/04/2013 Family History Mother , old age at age 98. No problems noted. Father , Heart disease at age 64. Heart disease [place] Sister , Colon [place] Personal history of malignant neoplasm Sister , Heart problems at age 72. Personal history of malignant neoplasm Breast cancer, dx'ed in her 60s Heart disease Sister Hypertensive disorder, systemic arterial Diabetes Sister Diabetes Sister Hypertensive disorder, systemic arterial Brother , Parkinson's at age 75. Personal history of malignant neoplasm Brother Parkinson's disease Brother , Heart condition at age 62. Hypertensive disorder, systemic arterial Diabetes Brother Hypertensive disorder, systemic arterial Diabetes Social History Smoking/Tobacco Use Status: Never Smoking risk assessment performed?: Yes Alcohol Intake: never Drug use: Never Substance use type: does not use Adopted: No Foster care: No Housing: apartment Number of Children: 0 number of grandchildren: 0 Communication Needs: Corrective Lenses current occupation: retired from [employer] Pets and animals: No Current gender identity: female What is your relationship status?: Panel score (0-1 are the most socially isolated patients): 0 Seatbelt use: always Working smoke detector in home: Yes Fire extinguisher in home: Yes Carbon monox detector in home: Yes Firearms in home: No Do you feel safe at home: Yes Do you feel safe in your relationship?: Yes Meds Allergies and Home Medications Allergies Allergy/AdvReac Type Severity Reaction Status Date / Time ranitidine Allergy Severe WHEEZING Verified 11/25/23 16:22 cefadroxil Allergy Mild Other (See Verified 11/25/23 16:22 Comment) empagliflozin (From AdvReac Severe UTI Verified 11/25/23 16:22 Jardiance) metformin AdvReac Severe Diarrhea Verified 11/25/23 16:22 ciprofloxacin AdvReac Intermediate WEAKNESS Verified 11/25/23 16:22 pneumococcal 13-valent AdvReac Intermediate temp and Verified 11/25/23 16:22 conjugate to (From Prevnar body aches 13 (PF)) sucralfate AdvReac Intermediate N/V Verified 11/25/23 16:22 levofloxacin AdvReac Other (See Verified 11/25/23 16:22 Comment) Home Medications ?Medication ?Instructions ?Recorded ?Confirmed ?Type multivitamin 1 ea PO DAILY 11/05/12 11/25/23 History compress.stocking,knee,reg,lrg #1 ea 03/20/21 11/11/23 Rx calcium carb 1,200 mg-mag hydrox 10 ml PO PRN PRN 06/23/21 11/25/23 History 270 mg-simeth 80 mg/10 mL oral susp (Mylanta Coat-Cool) blood-glucose meter (CDSM Interactive SolutionsTouch #1 ea 07/24/21 11/11/23 Rx Verio Meter) lancing device with lancets kit #1 ea 07/24/21 11/11/23 Rx (OneTouch Delica Plus Lancing Device kit) acetaminophen 500 mg tablet 1,000 mg (2 x 500 mg) PO Q8H PRN 05/26/22 11/25/23 Rx pain #90 tabs docusate sodium 100 mg capsule 100 mg PO BID #30 caps 05/26/22 11/25/23 Rx (Colace) ketoconazole 2 % topical cream 1 applic topical DAILY 3 months 02/23/23 11/25/23 Rx #60 grams albuterol sulfate 90 mcg/actuation 2 puff inhalation Q4H PRN PRN 05/13/23 11/25/23 Rx aerosol inhaler (ProAir HFA) shortness of breath or wheezing ##3 furosemide 20 mg tablet 20 mg PO BID edema #180 tabs 05/13/23 11/25/23 Rx metoprolol tartrate 25 mg tablet See Rx Instructions .Route 05/29/23 11/25/23 Rx .COMPLEX #90 tabs potassium chloride 20 mEq 20 meq PO DAILY #90 tabs 07/19/23 11/25/23 Rx tablet,extended release blood sugar diagnostic (OneTouch #200 ea 07/29/23 11/11/23 Rx Verio test strips) fluticasone propionate 110 2 puff inhalation BID #3 08/11/23 11/25/23 Rx mcg/actuation HFA aerosol inhaler inhalations beclomethasone dipropionate 40 2 inh inhalation BID #10.6 grams 08/18/23 11/25/23 Rx mcg/actuation HFA breath activated aerosol (Qvar RediHaler) levothyroxine 75 mcg tablet 75 mcg PO DAILY #90 tabs 09/09/23 11/25/23 Rx pen needle, diabetic 31 gauge x #100 ea 10/01/23 11/11/23 Rx 3/16 (BD Ultra-Fine Mini Pen Needle) sucralfate 1 gram tablet 1 g PO BID PRN gastric pain #60 11/01/23 11/25/23 Rx tabs apixaban 5 mg tablet (Eliquis) 5 mg PO BID #180 tab-caps 11/11/23 11/25/23 Rx lancets 33 gauge (OneTouch Delica #100 ea 11/17/23 Rx Plus Lancet) insulin glargine 100 unit/mL (3 10 unit (0.1 mL) subcut DAILY for 11/21/23 11/25/23 Rx mL) subcutaneous pen mgmt of diabetes, E11.9, with A1C goal < 7.5 #15 mL Exam Narrative Exam Narrative: General: Patient appears appropriate for age, alert and oriented x 3 and in no acute distress. She does have excruciating pain with movement of her left arm which is in a sling. She is lying comfortably in bed at a 45 degree angle. HEENT: Normocephalic, face with bruising over her left face with mild swelling. Eyes with pupils equal and reactive to light symmetrically, extraocular movement intact and sclera anicteric. Oropharynx with moist Koza and fair dentition. Neck: Supple without JVD. Back: Kyphotic without CVA tenderness. Lungs: Clear to auscultation and percussion with no expiratory wheeze. No focalizing rales or rhonchi. Breast: Exam deferred. Heart: Irregularly irregular rhythm with normal rate. No murmurs or gallops. Palpable subcutaneous pacemaker over left upper chest. Abdomen: Obese contour, soft nontender to palpation with no palpable hepatosplenomegaly. Bowel sounds positive all quadrants. No focalizing tenderness or guarding and no rebound. Extremities: Left shoulder in sling with swelling over proximal arm and tenderness with any movement. Full exam not performed with patient and sling and swath. No clubbing or cyanosis. Nonpitting edema and obesity over lower extremities. Good cap refill. Skin: Bruising of the left face and left arm otherwise normal color, warm and dry. Neuro: Cranial nerves II through XII gross intact, no focalizing motor deficits. No tremor. Psych: Normal affect and mood. Patient is very talkative. No abnormal thought processes. Remote and recent memory intact. Results Imaging Imaging Studies: EXAM: XR SHOULDER LT COMPLETE 2+V CLINICAL HISTORY: L shoulder pain s/p fall. TECHNIQUE: 2D digital imaging was performed of the left shoulder. Three images were obtained. AP, Grashey and Y views were obtained. COMPARISON: No exams were available for comparison FINDINGS: BONES: There is an acute comminuted fracture involving the proximal left humerus. There is an impacted component through the surgical neck. There is also a mildly displaced comminuted component involving the greater tuberosity. No bony destructive lesion is seen. JOINTS: No dislocation present. SOFT TISSUE: Normal. IMPRESSION: Comminuted impacted fracture involving the proximal left humerus. EXAM: XR KNEE LT 4V AP,LAT,IFEANYI,PAT CLINICAL HISTORY: L knee bruising s/p fall. TECHNIQUE: 2D digital imaging was performed. Three images were obtained. AP, AP tunnel and lateral views were obtained. 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 No fracture or dislocation. JOINTS: The orthopedic hardware is in good position. No evidence of hardware loosening. SOFT TISSUE: There is soft tissue swelling around the knee. No radiopaque foreign body is identified. IMPRESSION: 1. Stable left total knee replacement. 2. No acute fracture or dislocation. EXAM: CT CHEST/ABD/PEL W and CT thoracic and lumbar spine recons CLINICAL HISTORY: trauma, landed on L shoulder TECHNIQUE: Imaging Protocol: Axial computed tomography images with coronal and sagittal reformatted images were created and reviewed CONTRAST MATERIAL: Intravenous: Omnipaque 350 contrast volume:100 mL Oral: No COMPARISON: CT CT CHEST PE CTA from 12/31/[address] ABDOMEN PELVIS W from 04/07/2023 FINDINGS: CHEST: Tracheobronchial tree: Patent where visualized. Pulmonary parenchyma: No consolidation or dominant measurable mass. There is an area of atelectasis seen in the medial aspect of the right middle lobe. Visualized thyroid gland: Unremarkable. Mediastinum and Maricel: No dominant adenopathy or fluid collection. The esophagus is unremarkable. There is a moderate size hiatal hernia. Pleura: No effusion or pneumothorax. Heart: Mild cardiomegaly. Coronary artery calcifications are present. Cardiac monitoring device and wires are in place. No pericardial effusion. Pulmonary arteries: No central pulmonary embolism is present. Aorta: Thoracic aorta non-dilated. There is no evidence of dissection. Atherosclerotic calcification is present. Lymph nodes: Within normal limits. Tubes, Catheters, and Lines: Cardiac pacing device is in good position. Soft tissues: Unremarkable. Bones:There is a comminuted fracture of the surgical neck and head of the left humerus. Age-appropriate degenerative changes are present. CT scan of the thoracic spine recons: No acute fractures or subluxations are present. CT scan of the lumbar spine recons: Age-appropriate degenerative changes are present. There is a right convex lumbar scoliosis. No acute fractures or subluxations are present. ABDOMEN: Liver: Normal density. No measurable mass. Portal, Superior Mesenteric, and Splenic Veins: Unremarkable. Gallbladder and Biliary Tract: Status post cholecystectomy. There is unchanged size of the extrahepatic bile duct. Pancreas: There is again seen fatty atrophy of the pancreas. No inflammatory process is seen. Spleen: Normal. Adrenals: No masses seen. Kidneys: Normal size, contour and axis. No radiodense stones or obstructive uropathy. No masses seen. Abdominal Aorta: Abdominal portion non-dilated. Atherosclerotic calcification is present. Bowel: No obstruction or bowel wall thickening. No evidence of appendicitis. There are diverticula seen in the colon but no evidence of acute diverticulitis. Peritoneal Cavity: No ascites, collection or mesenteric inflammatory response. No free air. Lymph Nodes: Within normal limits. Bones: Within normal limits for the patient's age. Soft Tissues: Unremarkable. PELVIS: Bladder: Symmetric distention, no gross wall thickening. Reproductive Organs: The uterus is absent. Lymph Nodes: Within normal limits. Bones: Within normal limits. IMPRESSION: 1. No evidence of acute thoracic injury. 2. No acute abdominal or pelvic organ injury. 3. No acute fracture or subluxation in the thoracic or lumbar spine. EXAM: CT HEAD CERV SPINE FACIAL WO CLINICAL HISTORY: trauma, on eliquis. TECHNIQUE: Imaging Protocol: Axial computed tomography images with coronal and sagittal reformatted images were created and reviewed COMPARISON: CT HEAD WITHOUT CONTRAST from 07/04/2008 FINDINGS: CT Head: Ventricles and Extra axial spaces: Normal in size and morphology for the patient's age. Hemorrhage: None. Cerebral parenchyma: Normal. Midline shift: None. Brainstem/Cerebellum: Normal. Calvarium: Normal. Visualized Paranasal sinuses/Mastoids: Clear. Soft Tissues: Unremarkable. CT Face: Facial Bones: No definite fracture is noted in facial bones. Sinuses and Mastoids: Unremarkable. Bilateral hearing aids. Globes, extraocular muscles, optic nerves and retrobulbar fat: Normal. Upper aerodigestive tract: Normal. Mandible and bilateral temporomandibular joints: Normal. Soft tissues: A subcutaneous hematoma overlying the left cheek. CT Cervical Spine: Bones: No acute fracture or subluxation. Age-appropriate degenerative changes are seen in the cervical spine. Soft Tissues: Unremarkable. Lung Apices: Clear. IMPRESSION: 1. No acute intracranial process. 2. No acute fracture or subluxation in the cervical spine. 3. No acute facial fracture. 4. Cutaneous hematoma in the left cheek. Labs 11/25/23 15:50 11/25/23 16:26 Labs: Laboratory Results - last 24 hr 11/25/23 11/25/23 15:50 16:26 WBC 6.94 RBC 4.01 Hgb 12.7 Hct 37.5 MCV 94 MCH 31.7 MCHC 33.9 RDW 12.4 Plt Count 190 MPV 11.2 H PT Cancelled 11.0 INR Cancelled 1.1 APTT Cancelled 24.7 Sodium Cancelled 142 Potassium Cancelled 3.3 L Chloride Cancelled 106 Carbon Dioxide Cancelled 29.0 Anion Gap Cancelled 7.0 BUN Cancelled 12 Creatinine Cancelled 0.8 Est GFR (CKD-EPI 2020) Cancelled 72.61 Glucose Cancelled 110 H Calcium Cancelled 8.6 Total Bilirubin Cancelled 0.59 AST Cancelled 22 ALT Cancelled 18 Alkaline Phosphatase Cancelled 69 Total Protein Cancelled 6.7 Albumin Cancelled 3.3 L Last Vital Signs Temp 36.7 C 11/25/23 15:42 Pulse 89 11/25/23 18:36 Resp 16 11/25/23 18:36 BP 126/73 11/25/23 18:36 Pulse Ox 100 11/25/23 18:36 Time Spent Time spent with Patient: >75 minutes Time was spent: preparing to see the patient(eg.review tests), obtaining and/or reviewing separately otained hiistory, ordering medications,tests, procedures, indepentently interpreting results, counseling the patient and care coordination
[2023-11-25 21:26] LABS: Magnesium 1.6 mg/dL (1.8-2.4); TSH 6.23 uIU/Ml (0.36-3.74)
[2023-11-25 21:49] LABS: Hemoglobin A1C 6.3 % (<5.7)
[2023-11-25] MEDS: Apixaban 5 MG TAB PO (23:46)
[2023-11-25] MEDS: MAGNESIUM SULFATE 2 GM/50 ML BAG IVINF (23:46)
[2023-11-25] MEDS: Sucralfate 1 GM TAB PO (23:46)
[2023-11-25] MEDS: Potassium Chloride 20 MEQ TABCR PO (23:46)
[2023-11-26 02:06] LABS: Troponin I < 50 ng/L (< or =60)
[2023-11-26 03:00] VITALS: PULSE 90
[2023-11-26] MEDS: Acetaminophen 500 MG TAB 1000 MG PO ×2 (06:04→19:24)
[2023-11-26] MEDS: Levothyroxine 75 MCG TAB PO (06:05)
--- NOTE | 2023-11-26 06:46 | W.PC.ACHO ---
Registration Status: Primary Language: Preferred Language: ED Information & Data Chief Complaint Fall/Non TraumaCriteria 11/25/23 16:00 Triage Note 10 of 10 pain L shoulder 11/25/23 15:42 after falling onto a cement walk way outside her home. PT can not describe the event in detail but believes that she lost her balance while turning. Swelling and discoloration on L. Cheek/ face, Pain in shoulder radiating down to arm, pain in L hip. Medical / Surgical History (Last Reviewed 11/25/23 @ 20:55 by Nirav Laboy) Iatrogenic hyperthyroidism High risk medication use Elevated serum free T4 level Sepsis Lipedema of lower extremity Atrial tachycardia Pacemaker (09/16/17) Atrioventricular block (07/07/12) Lymphedema Arthropathy of left knee Arthritis of left knee Failed fundoplication Pyrosis Lesion of face Left knee pain High risk medications (not anticoagulants) long-term use Cardiomyopathy Vulvovaginal candidiasis Esophagitis determined by biopsy Macular pucker Leg edema Leg weakness Muscle spasm of left shoulder area Deformity of toenail Right lumbar radiculopathy Spinal stenosis of lumbar region High risk medications (not anticoagulants) long-term use Hot flashes Piriformis syndrome of right side Pelvic pain (02/07/13) Trochanteric bursitis, right hip (05/19/16) Primary osteoarthritis of right knee (01/10/17) Postnasal drip (01/09/15) Osteoarth NOS-unspec (07/06/11) Neurogenic pain of right lower extremity (09/19/15) Multinodular goiter (12/19/15) Impaired glucose tolerance (03/10/12) Hyperlipidemia (07/07/12) Family hx-breast malignancy (11/13/12) Exertional dyspnea (01/28/15) Essential hypertension (01/18/13) Endometrial cancer (07/19/16) Controlled type 2 diabetes mellitus without complication, without long-term current use of insulin (03/26/16) Chronic eczematoid otitis externa of both ears (01/22/16) Sensorineural hearing loss of both ears Urge incontinence History of postmenopausal bleeding Symptomatic bradycardia (Last Reviewed 11/25/23 @ 20:55 by Nirav Laboy) History of total left knee replacement (TKR) (05/26/22) History of total knee arthroplasty (05/26/22) Status post right knee replacement upper GI Series (10/05/17) sentinal lymph node dissection (07/01/16) Replacement of total knee joint (12/03/16) Pacemaker (12/04/13) Hyseterectomy, Total Laparoscopic w/ BSO (07/01/16) Hernia, hiatal (banding) EGD - MAC (06/29/17) Colonoscopy - IV Sedation (03/17/16) Cholecystectomy Extraction of cataract Cardiac Cath, 2008 History of Surgical Procedure Most Recent Vital Signs Temperature 37.4 C 11/25/23 23:16 Temperature Source Temporal Artery Scan 11/25/23 22:38 Pulse 90 11/26/23 03:00 Pulse Rhythm Irregular 11/26/23 03:00 Pulse 93 H 11/25/23 18:31 Respiratory Rate 20 11/25/23 23:16 Respiratory Effort Normal, Non-Labored 11/26/23 03:00 Respiratory Depth Normal 11/26/23 03:00 Respiratory Pattern Normal 11/26/23 03:00 Blood Pressure 110/64 11/25/23 23:16 Blood Pressure Mean 90 11/25/23 18:36 Pulse Oximetry 100 11/25/23 23:16 Oxygen Delivery Method Room Air 11/25/23 23:16 Oxygen Flow Rate 0 11/25/23 23:16 Pain Level 6 11/26/23 06:04 Allergies ranitidine Allergy (Severe, Verified 11/25/23 16:22) WHEEZING cefadroxil Allergy (Mild, Verified 11/25/23 16:22) Other (See Comment) pt. cant remember; HAS HAD CEFAZOLIN THE PAST WITH NO ISSUE empagliflozin (From Jardiance) Adverse Reaction (Severe, Verified 11/25/23 16:22) UTI metformin Adverse Reaction (Severe, Verified 11/25/23 16:22) Diarrhea ciprofloxacin Adverse Reaction (Intermediate, Verified 11/25/23 16:22) WEAKNESS pneumococcal 13-valent conjugate to (From Prevnar 13 (PF)) Adverse Reaction (Intermediate, Verified 11/25/23 16:22) temp and body aches sucralfate Adverse Reaction (Intermediate, Verified 11/25/23 16:22) N/V levofloxacin Adverse Reaction (Verified 11/25/23 16:22) Other (See Comment) pt reported stiff tendons both ankles. Active Medications Generic Name Dose Route Start Last Admin Trade Name Freq PRN Reason Stop Dose Admin Acetaminophen 1,000 mg 11/25/23 21:00 11/26/23 06:04 Acetaminophen 500 Mg Tab PO 1,000 mg Q8H PRN PRN Administration Apixaban 5 mg 11/25/23 23:00 11/25/23 23:46 Apixaban 5 Mg Tab PO 5 mg BID FLORIAN Administration Insulin Aspart 0 - 9 units 11/25/23 23:00 11/26/23 00:33 Insulin Aspart 300 Units/3 Ml Pen SC Not Given 0800,1200,1700,2200 [facility] Protocol Iohexol 100 ml 11/25/23 17:00 11/25/23 17:01 Omnipaque 350 Mg/Ml 100 Ml Btl IJ 12/25/23 23:59 100 ml DIRECTED FLORIAN Administration Levothyroxine Sodium 75 mcg 11/26/23 06:00 11/26/23 06:05 Levothyroxine 75 Mcg Tab PO 75 mcg 0600 FLORIAN Administration Potassium Chloride 20 meq 11/26/23 00:00 11/25/23 23:46 Potassium Chloride 20 Meq Tabcr PO 20 meq BID FLORIAN Administration Sucralfate 1 gm 11/25/23 23:00 11/25/23 23:46 Sucralfate 1 Gm Tab PO 1 gm AC & HS FLORIAN Administration IV IV Catheter Type [] Peripheral IV IV Catheter Gauge [] 18 Diet Orders Category Date Time Status Diabetes Consistent CHO/Low Na [DIET] Nutrition 11/26/23 Breakfast Active Diagnostics 11/26/23 11/26/23 11/25/23 Range/Units 06:17 01:29 16:26 WBC Pending (4.4-10.8) 10^3/uL RBC Pending (3.93-5.22) 10^6/uL Hgb Pending (11.2-15.7) g/dL Hct Pending (36.0-46.0) % MCV Pending (80-95) fL MCH Pending (27.0-33.0) pg MCHC Pending (32.0-36.0) % RDW Pending (11.7-14.6) % Plt Count Pending (130-400) 10^3/uL MPV Pending (8.0-11.0) fL PT 11.0 INR 1.1 APTT 24.7 Sodium Pending 142 Potassium Pending 3.3 L Chloride Pending 106 Carbon Dioxide Pending 29.0 Anion Gap Pending 7.0 BUN Pending 12 Creatinine Pending 0.8 Est GFR (CKD-EPI 2020) Pending 72.61 Glucose Pending 110 H Hemoglobin A1c 6.3 H (<5.7) % Calcium Pending 8.6 Magnesium Pending 1.6 L (1.8-2.4) mg/dL Total Bilirubin Pending 0.59 AST Pending 22 ALT Pending 18 Alkaline Phosphatase Pending 69 Troponin I Pending < 50 (< or =60) ng/L Total Protein Pending 6.7 Albumin Pending 3.3 L TSH 6.23 H (0.36-3.74) uIU/Ml 11/25/23 Range/Units 15:50 WBC 6.94 (4.4-10.8) 10^3/uL RBC 4.01 (3.93-5.22) 10^6/uL Hgb 12.7 (11.2-15.7) g/dL Hct 37.5 (36.0-46.0) % MCV 94 (80-95) fL MCH 31.7 (27.0-33.0) pg MCHC 33.9 (32.0-36.0) % RDW 12.4 (11.7-14.6) % Plt Count 190 (130-400) 10^3/uL MPV 11.2 H (8.0-11.0) fL PT Cancelled INR Cancelled APTT Cancelled Sodium Cancelled Potassium Cancelled Chloride Cancelled Carbon Dioxide Cancelled Anion Gap Cancelled BUN Cancelled Creatinine Cancelled Est GFR (CKD-EPI 2020) Cancelled Glucose Cancelled Hemoglobin A1c (<5.7) % Calcium Cancelled Magnesium (1.8-2.4) mg/dL Total Bilirubin Cancelled AST Cancelled ALT Cancelled Alkaline Phosphatase Cancelled Troponin I (< or =60) ng/L Total Protein Cancelled Albumin Cancelled TSH (0.36-3.74) uIU/Ml Hbfut-eg-[id number] Documentation Fingerstick Glucose Start: 11/25/23 21:15 Freq: AC & HS Status: Active Protocol: Activity Type Activity Date Activity User E-sign Co-sign Detail Recorded Client Recorded Date Recorded By Document 11/25/23 22:44 BKG DAEMON(3) [id number] 11/25/23 22:45 BKG DAEMON(4) Intake and Output - 24 Hour Total 11/25/23 15:32 thru 11/26/23 03:00 Output Total 400 Balance -400 Weight 76.4 kg Output: Urine 400 Other: Urine Color Yellow Urine Appearance Clear Voiding Methods Bedside Commode Falls Risk Assessment History of Falls Admit Due to Fall 11/25/23 23:16 Contributing Factors Impairments,Incontinence, 11/25/23 23:16 Medications Ambulatory Aids Uses ambulatory device + 11/25/23 23:16 Tubes/Lines None 11/25/23 23:16 Gait Evaluation W/any additional score 11/25/23 23:16 Cognition No cognitive impairment 11/25/23 23:16 Fall Total Score 84 11/25/23 23:16 Level of Risk Maximum Risk 11/25/23 23:16 Problems (Last Reviewed 11/25/23 @ 20:55 by Nirav Laboy) Acute hypokalemia (Acute) Fracture, humerus closed (Acute) Hypomagnesemia (Acute) Chronic atrial fibrillation with RVR (Chronic) Type 2 diabetes mellitus (Chronic) Notes 11/25/23 20:22 Nursing Notes by Magalys Medrano Nursing Note: pt is not comfortable going home and caring for herself alone. It took [facility] and this nurse to get the patient into a standing position and she was not steady at all just standing. Placed sling on L arm and straightened up the bedding. [facility] and this nurse got pt back into bed and resting. Pt is in tears from the pain Initialized on 11/25/23 20:22 - END OF NOTE 11/25/23 19:51 Nursing Notes by Magalys Medrano Nursing Note: Assumed care of pt. Report from [facility] [place]. Introduced self to pt. Pt has bruising to L side of face. Pt asking what is happening next. Will touch base with provider and report back Initialized on 11/25/23 19:51 - END OF NOTE v v v v v v v v v Sending and/or Receiving Nurses: Please use comment section below to note any information pertinent to the patient hand-off not included above. Information / Comments: patient lives independently at [facility], has her own apartment and lives alone. Patient presents s/p fall, left humerus fracture. Unable to discharge patient home due to living alone. Sling with shoulder immobilizer in place. Plan for pain management, PT/OT. Report received from: Selin Medrano RN
[2023-11-26 06:49] LABS: HCT 34.7 % (36.0-46.0); HGB 11.7 g/dL (11.2-15.7); MCH 31.5 pg (27.0-33.0); MCHC 33.7 % (32.0-36.0); MCV 93 fL (80-95); MPV 11.2 fL (8.0-11.0); Platelet Count 152 10^3/uL (130-400); RBC 3.72 10^6/uL (3.93-5.22); RDW 12.6 % (11.7-14.6); RDW-SD 43.3 fL; WBC 6.26 10^3/uL (4.4-10.8)
[2023-11-26] MEDS: Sucralfate 1 GM TAB PO ×4 (07:08→21:49)
[2023-11-26 07:11] LABS: ALT 21 U/L (14-59); AST 25 U/L (15-37); Albumin 3.2 g/dL (3.4-5.0); Alkaline Phosphatase 70 U/L (46-116); Anion Gap 5.6 mmol/L (3-11); BUN 10 mg/dL (7-18); Bilirubin, Total 0.79 mg/dL (0.2-1.0); CO2 29.4 mmol/L (21.0-32.0); CREATININE 0.6 mg/dL (0.55-1.02); Calcium 8.7 mg/dL (8.5-10.1); Chloride 104 mmol/L (98-107); Estimated GFR 88.45 (mL/min/1.73m2); Glucose 100 mg/dL (74-106); Magnesium 2.2 mg/dL (1.8-2.4); Potassium 3.4 mmol/L (3.5-5.1); Sodium 139 mmol/L (136-145); Total Protein 6.5 g/dL (6.4-8.2)
[2023-11-26 07:16] LABS: Troponin I < 50 ng/L (< or =60)
[2023-11-26] MEDS: Mometasone 220 MCG 14 DOSE INHALER 1 PUFF IH ×2 (07:43→19:44)
[2023-11-26 07:50] VITALS: BP 98/61; PULSE 94; RESP 15; TEMP 36.6; O2SAT 97
[2023-11-26] MEDS: Magnesium Gluconate 500 MG TAB PO (07:56)
[2023-11-26] MEDS: Multivitamin TAB 1 TAB PO (07:56)
[2023-11-26] MEDS: Docusate Sodium 100 MG CAP PO ×2 (07:56→19:23)
[2023-11-26] MEDS: Furosemide 20 MG TAB PO ×2 (07:56→15:58)
[2023-11-26] MEDS: Potassium Chloride 20 MEQ TABCR PO ×2 (07:56→19:24)
[2023-11-26] MEDS: Apixaban 5 MG TAB PO ×2 (07:56→19:23)
[2023-11-26] MEDS: Normal Saline Flush 10 ML SYR IVP ×3 (07:58→19:25)
[2023-11-26] MEDS: Ketoconazole 2% CREAM 15 GM TUBE TP (07:59)
--- NOTE | 2023-11-26 09:37 | INITIAL_ITS ---
Date of service: 11/26/23 Time of Service: 09:37 Care Management Initial Assmt Initial Assessment Reason for Hospitalization: Fracture, humerus closed, Acute hypokalemia, hypomagnesemia Functional Status/Living Situation Patient Presentation: Elaina was sitting in a recliner when CM met with her. Pt reports that she had been driving up until now, and will likely need to have one of her friends run her errands for the time being. Elaina lives in senior housing and feels very supported by her friends. Town of Residence: [place] Resides with: Alone Significant Other/Family: Local Natural Supports: [place] Senior housing, has several friends Employment Status: Retired Instrumental Activities of Daily Living (ADLs): Independent Medications Medication Management: No Issues/Barriers identified Physical Functioning/Mobility Assistive Device: Cane Advance Directives Advance Directives: Do you have an Advance Directive: AD On File at [facility]: N 11/25/23 21:34 Date Asked 11/26/23 11/26/23 09:14 AD Date Reviewed COLST On File at [facility] COLST Date Scanned Code Status Resuscitation Status DNR/DNI Portal Pt does not currently have a portal and education provided: Yes Insurance Coverage/Financial Issues Insurance: [facility] Medicare Care Team Visit Care Team Role Provider Type Vicenta Freed DO Primary Care Provider OSTEOPATHIC DOCTOR Keisha Pierre Other Providers REG OCCUPATIONAL THERAPIST InPatient Balta Lopez Other Providers OTHER Misa Nunn Emergency Provider NURSE PRACTITIONER Nirav Laboy Admit Provider NON-[facility] STAFF PHYSICIAN Attending Provider Discharge Potential Discharge Needs: PT Evaluation Anticipated Barriers to Discharge: None Identified Patient/Family Education Needs: Review discharge instructions, discuss Ask Me Three Transportation: Private vehicle Plan: PT/OT consult ordered. Anticipate Elaina will discharge home when medically ready per provider. She will transport via private vehicle with her friend or via RCT. She will follow up with community providers and discharge plan of care as prescribed. New [facility] services will be ordered if indicated. [facility] All Active Problems (Updated 11/26/23 @ 13:52 by Marj Armstrong NP) Discharge planning issues (Acute) Acute hypokalemia (Acute) Fracture, humerus closed (Acute) Phlegm in throat (Acute) sensation in throat then brings it up (vs reflux or vomit) Hypovitaminosis D (Acute) Thyroid nodule (Acute 01/28/15) 01/01/15 US 4mm nodule isthmus 05/15/15 US 4.5 nodule isthmus, ?7x5 nodule right Hypothyroidism (Chronic 01/02/13) States her muscles are getting sore, Especially in L arm, and also bone pain (pt read insert from pharmacy) States her knees are bothering as in, weakness and pain, as well, fluid is building up. PAD (peripheral artery disease) (Acute) Right - asymptomatic. Pt declines referral to [facility] at this time. 06/2023. EO Asthma (Chronic 01/18/13) [employer] [facility] Rx per insurance, 05/2023, ik .. possible asthma; PFTs normal 04/27/2012.07/2013 Hypomagnesemia (Acute) Noted @ ED, 02/2021 .. replenished. Monitor [ ] Low serum albumin (Acute) Amiodarone pulmonary toxicity (Acute) Diastolic heart failure (Acute) Chronic atrial fibrillation with RVR (Chronic) On deep vein thrombosis (DVT) prophylaxis (Acute) Ingrown toenail (Acute) Onychomycosis (Acute) PVD (peripheral vascular disease) (Chronic) Venous insufficiency (Acute) Sacroiliac joint dysfunction of right side (Acute) Hiatal hernia (Chronic) 01/25/23 5cm ([facility]) Nail dystrophy (Acute) Hypokalemia (Acute) Critically low, SOB (shortness of breath) (Acute) Cont post hospitalization despite ABx/Recovery from PNA Diabetes mellitus due to underlying condition, uncontrolled, with hyperglycemia (Acute) A1C rise due to inactivity 2' back/knee pain & steroid use.. winter 2021 Insulin dose changed (Acute) Atrial fibrillation (Acute 07/06/11) normal echo and cath 2008; flecanide Rx; apixiban; echo 09/2013 EF 60%.. Type 2 diabetes mellitus (Chronic) A1C jump 2' limited ambulation & steroid use. [ ] Insulin due to intolerance of PO Rx, ik, 03/2022.. Recent A1C increase, from pre-diabetes to DM this past year.. Edema (Acute) LE edema , R>L .. notable, possibly 2' Jardiance intolerance, but possible lymphedema (?) Medication intolerance (Acute) Unable to tolerate Jardiance (candidiasis!), Metformin. Dysphagia, unspecified (Acute 07/07/12) EGD KD: mild esophagitis 10/[address] Ragsdale 09/23/[address] Duncan, [facility], [place], [place]. Impression: Gerd Dysphagia. Rule out secondary to esophageal ulcer,dysmotility, or from perhaps a failing Singh. recommeded: Upper GI Gerd protocaol discussed w/ pt. panel 2,B12 If pt continues sx, may want to repeat upper endoscopy. Plans to see her back in follwup. Gastroesophageal reflux disease (Acute 07/07/12) Managed with PPI for years, worsening x 2-3 months. Now associated with LUQ tenderness, 05/26/17. []H.pylori [] U/S LUQ ik IMPROVED with weight loss, 06/02.19, ik EGD rescheduled with Dr. Escobar (2' Margaret not yet taking appts @ [facility]), 05/26/17 .. Consulted, EGD sched for 06/29/17. note: s/p Singh, hernia repair, and esoph dilation (2013) 10/29/21 GI visit with f/u in 6w Atrophic gastritis without mention of hemorrhage (Acute 07/07/12) History of hiatal hernia (Acute) Reactive airway disease (Chronic) Medical History Iatrogenic hyperthyroidism Levothyroxine stopped, rechecked 08/14 (1 month later than planned) with very high TSH, so re-starting Rx High risk medication use Stopped (2022) ..Amiodarone since July, evaluating for tox (06/20/22 d/w [facility]) 2' SOB w/NEG CTA & no improvement post diuresis (furosemide 40) Elevated serum free T4 level Cardiology STOPPED levothyroxine, 05/2023..high TSH, High T4, 03/2022 ... Hx low TSH and high T4 (08/2021) Sepsis ICU during [facility] Hospitalization (pneumonia with quick onset/worsening!) Lipedema of lower extremity nodular, symm, tender inner upper calves Atrial tachycardia per Cardiology, [facility] .. Admitted post xfer from [facility] ED (08/08/21). EF 50%. Amiodarone started; Flecainide stopped. Amiodarone stopped 2022 concern for pulm tox Pacemaker (09/16/17) Sees DARNELL Tejada ([facility]). Dual lead Medtronic pacemaker Adapta .. Placed 2013, Dr. Edin Robles. 99Medtronic dual lead pacemaker implanted 12/04/2013 .. Adapta [id number] [id number] .. RA Medtronic [id number], 11/2013.. RV [id number] 12/04/2013)) Atrioventricular block (07/07/12) pacemaker placement 12/04/2013; 5 sec asystoles last interrogation, 03/2017. Lymphedema nonpitting edema -- seems lymphedema -- appreciate pt eval Arthropathy of left knee Arthritis of left knee s/p L TKA 05/26/22 Failed fundoplication Pyrosis Lesion of face or BCCA left lateral canthus 09/14/[address] Dillon 09/22/21 sutures removed Left knee pain DEPO MEDROL 01/14/22 Arthrocentesis @ [facility] (during hosp stay for atrial tach), NEG.. referred to local ortho ([facility]). High risk medications (not anticoagulants) long-term use Amiodarone started, 07/2021 (after years on flecainide).. [ ] Ophtho, EP, Echo, PFTs .. short-term lasix. Cardiomyopathy Due to atrial tachycardia.. xferred to [facility] PM reprogrammed. Amiodarone replacing flecainide. Low-dose diuretics (see 08/11/21 [facility] note).. Vulvovaginal candidiasis 2' Jardiance .. trial monostat or diflucan . STOP Jardiance if janae returns. Esophagitis determined by biopsy Macular pucker Leg edema Leg weakness With standing .. Hx lumbar stenosis .. Hx spinal injection (?) Muscle spasm of left shoulder area Trapezius MM Spasm .. Deformity of toenail Right lumbar radiculopathy Spinal stenosis of lumbar region High risk medications (not anticoagulants) long-term use Flecainide - started by Dr. Douglass Hot flashes Hot Flashes x 6 mos, 06/13/19. Piriformis syndrome of right side Pelvic pain (02/07/13) Trochanteric bursitis, right hip (05/19/16) Primary osteoarthritis of right knee (01/10/17) s/p RT TKR Fall 2017 Postnasal drip (01/09/15) Osteoarth NOS-unspec (07/06/11) Neurogenic pain of right lower extremity (09/19/15) Multinodular goiter (12/19/15) Impaired glucose tolerance (03/10/12) Hyperlipidemia (07/07/12) Family hx-breast malignancy (11/13/12) SISTER IN 60s Exertional dyspnea (01/28/15) Essential hypertension (01/18/13) FRS 13% .. 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 [facility] q6m x1 year, then annually. --[facility] 06/2016 Shakira Diaz MD Post-radiation association with new abd pain (?), michelle, 05/26/17 Controlled type 2 diabetes mellitus without complication, without long-term current use of insulin (03/26/16) POOR CTL, 01/2021 (A1C 7.6) .. A1C goal 7.5 ... 7.1 today, 08/07/20. 6.8/6.9 in 11/2016. A1C 6.5 post weight loss and focused effort on reducing carbs/sweets. 06/02/18, michelle A1C remains @ 6.5 08/2018, good job! Chronic eczematoid otitis externa of both ears (01/22/16) Dr Jeffrey Cardenas Sensorineural hearing loss of both ears Urge incontinence urgency/frequency History of postmenopausal bleeding Symptomatic bradycardia Surgical History History of total left knee replacement (TKR) (05/26/22) History of total knee arthroplasty (05/26/22) Status post right knee replacement Dr. Del Cid, Ortho. She is happy with knee, able to step down from sidewalk w/o fear per 03/02/18 appt discussion. COntinues to do well; seeing ortho for possible neuropathic pain (outer rt calf). upper GI Series (10/05/17) for sx of epigastric dysphagia,GERD. Done by Dr. Duncan. Impression: Moderate sized Hiatal Hernia. Marked gastroesophageal reflux. sentinal lymph node dissection (07/01/16) NEG for mets from endometrium Replacement of total knee joint (12/03/16) R knee Dr Del Cid Pacemaker (12/04/13) Hyseterectomy, Total Laparoscopic w/ BSO (07/01/16) +Endometrial cancer Hernia, hiatal (banding) EGD - MAC (06/29/17) Colonoscopy - IV Sedation (03/17/16) Cholecystectomy Extraction of cataract B/L Cardiac Cath, 2008 History of Surgical Procedure a. Cholecystectomy. b. Bilateral cataract surgery. c. Hiatal hernia repair 2008. d. Esophagus stretching 2013 - Dr. Ragsdale. e. Pacemaker 12/04/2013 Family History Mother , old age at age 98. No problems noted. Father , Heart disease at age 64. Heart disease [place] Sister , Colon [place] Personal history of malignant neoplasm Sister , Heart problems at age 72. Personal history of malignant neoplasm Breast cancer, dx'ed in her 60s Heart disease Sister Hypertensive disorder, systemic arterial Diabetes Sister Diabetes Sister Hypertensive disorder, systemic arterial Brother , Parkinson's at age 75. Personal history of malignant neoplasm Brother Parkinson's disease Brother , Heart condition at age 62. Hypertensive disorder, systemic arterial Diabetes Brother Hypertensive disorder, systemic arterial Diabetes Social History Smoking/Tobacco Use Status: Never Smoking risk assessment performed?: Yes Alcohol Intake: never Drug use: Never Substance use type: does not use Adopted: No Foster care: No Housing: apartment Number of Children: 0 number of grandchildren: 0 Communication Needs: Corrective Lenses current occupation: retired from [employer] Pets and animals: No Current gender identity: female What is your relationship status?: Panel score (0-1 are the most socially isolated patients): 0 Seatbelt use: always Working smoke detector in home: Yes Fire extinguisher in home: Yes Carbon monox detector in home: Yes Firearms in home: No Do you feel safe at home: Yes Do you feel safe in your relationship?: Yes SDOH(Care Management) Screening Will the Patient Participate in the Screening?: Yes Do you worry about having a steady place to live?: no In the past 12 months, have you had to go without electric, gas, oil or water in your home?: no Have you or anyone in your house had to go without enough food to eat?: no Has lack of transportation kept you from medical appointments or from doing things needed for daily living?: no Has anyone in your support network made you feel unsafe for any reason?: no Interventions Care Management Referrals: HERMAN
--- NOTE | 2023-11-26 09:38 | IN_ITS ---
Date of service: 11/26/23 Time of Service: 08:55 PT Notes Visit Reasons: Comminuted impacted fracture of right proximal Inpatient Physical Therapy Evaluation I certify the need for these services as being medically necessary and skilled as furnished under this plan of treatment while under my care. Please sign and return within 14 days if you agree with the plan of care listed below.? Thank you for this referral! ? Referring Physician? Date Referring Doctor:? Nirav Laboy PT Orders: PT CONSULT for no use of left upper extremity for ambulation secon emilee to humerus fx Precautions: fall risk, no left UE use, HR ED note: Discussed case with [facility] orthopedist Dr. Samaniego, this may require surgical repair but is not to be done on an emergent basis. Recommend sling and pain control, with range of motion out of his sling a couple times a day being sure to mobilize the wrist, elbow, and fingers. Patient Profile/Admitting Diagnosis:? The patient is an 83 yo female adm on 11/25/23 s/p fall outside her home with left humeral fracture. Lives alone at senior housing facility in [place]. Has many friends around. Normally indep endent with cooking, cleaning, driving and shopping. Had started using a cane outside her home secondary to decrease balance on uneven surfaces. Has her own cane in the room and a shower bench at home. Home is one level with a ramp to enter. Friend came to visit her at the end of today's session. Past Medical History: Acute hypokalemia (Acute) Fracture, humerus closed (Acute) Phlegm in throat (Acute) sensation in throat then brings it up (vs reflux or vomit)Hypovitaminosis D (Acute) Thyroid nodule (Acute 01/28/15) 01/01/15 US 4mm nodule isthmus 05/15/15 US 4.5 nodule isthmus, ?7x5 nodule right Hypothyroidism (Chronic 01/02/13) States her muscles are getting sore, Especially in L arm, and also bone pain (pt read insert from pharmacy) States her knees are bothering as in, weakness and pain, as well, fluid is building up.PAD (peripheral artery disease) (Acute) Right - asymptomatic. Pt declines referral to [facility] vascular at this time. 06/2023. EOAsthma (Chronic 01/18/13) [employer] Rx per insurance, 05/2023, ik .. possible asthma; PFTs normal 04/27/2012.07/2013 Hypomagnesemia (Acute) Noted @ ED, 02/2021 .. replenished. Monitor [ ]Low serum albumin (Acute) Amiodarone pulmonary toxicity (Acute) Diastolic heart failure (Acute) Chronic atrial fibrillation with RVR (Chronic) On deep vein thrombosis (DVT) prophylaxis (Acute) Ingrown toenail (Acute) Onychomycosis (Acute) PVD (peripheral vascular disease) (Chronic) Venous insufficiency (Acute) Sacroiliac joint dysfunction of right side (Acute) Hiatal hernia (Chronic) 01/25/23 5cm ([facility] GI)Nail dystrophy (Acute) Hypokalemia (Acute) Critically low,SOB (shortness of breath) (Acute) Cont post hospitalization despite ABx/Recovery from PNADiabetes mellitus due to underlying condition, uncontrolled, with hyperglycemia (Acute) A1C rise due to inactivity 2' back/knee pain & steroid use.. winter 2021Insulin dose changed (Acute) Atrial fibrillation (Acute 07/06/11) normal echo and cath 2008; flecanide Rx; apixiban; echo 09/2013 EF 60%.. Type 2 diabetes mellitus (Chronic) A1C jump 2' limited ambulation & steroid use. [ ] Insulin due to intolerance of PO Rx, ik, 03/2022.. Recent A1C increase, from pre-diabetes to DM this past y ear..Edema (Acute) LE edema , R>L .. notable, possibly 2' Jardiance intolerance, but possible lymphedema (?)Medication intolerance (Acute) Unable to tolerate Jardiance (candidiasis!), Metformin.Dysphagia, unspecified (Acute 07/07/12) EGD KD: mild esophagitis 10/[address] Ragsdale 09/23/[address] Duncan, [facility], [place], [place]. Impression: Gerd Dysphagia. Rule out secondary to esophageal ulcer,dysmotility, or from perhaps a failing Singh. recommeded: Upper GI Gerd protocaol discussed w/ pt. panel 2,B12 If pt continues sx, may want to repeat upper endoscopy. Plans to see her back in follwup. Gastroesophageal reflux disease (Acute 07/07/12) Managed with PPI for years, worsening x 2-3 months. Now associated with LUQ tenderness, 05/26/17. []H.pylori [] U/S LUQ ik IMPROVED with weight loss, 06/02.19, ik EGD rescheduled with Dr. Escobar (2' [place] not yet taking appts @ [facility]), 05/26/17 .. Consulted, EGD sched for 06/29/17. note: s/p Singh, hernia repair, and esoph dilation (2013) 10/29/21 GI visit with f/u in 6w Atrophic gastritis without mention of hemorrhage (Acute 07/07/12) History of hiatal hernia (Acute) Reactive airway disease (Chronic) Medical History Iatrogenic hyperthyroidism Levothyroxine stopped, rechecked 08/14 (1 month later than planned) with very high TSH, so re-starting RxHigh risk medication use Stopped (2022) ..Amiodarone since July, evaluating for tox (06/20/22 d/w [facility] cardio) 2' SOB w/NEG CTA & no improvement post diuresis (furosemide 40)Elevated serum free T4 level Cardiology STOPPED levothyroxine, 05/2023..high TSH, High T4, 03/2022 ... Hx low TSH and high T4 (08/2021)Sepsis ICU during [facility] Hospitalization (pneumonia with quick onset/worsening!)Lipedema of lower extremity nodular, symm, tender inner upper calvesAtrial tachycardia per Cardiology, [facility] .. Admitted post xfer from [facility] ED (08/08/21). EF 50%. Amiodarone started; Flecainide stopped. Amiodarone stopped 2022 concern for pulm toxPacemaker (09/16/17) Sees DARNELL Tejada ([facility]). Dual lead Medtronic pacemaker Adapta .. Placed 2013, Dr. Edin Robles. 99Medtronic dual lead pacemaker implanted 12/04/2013 .. Adapta ADDRO1 [id number] .. RA Medtronic [id number], 11/2013.. RV [id number] 12/04/2013))Atrioventricular block (07/07/12) pacemaker placement 12/04/2013; 5 sec asystoles Lymphedema nonpitting edema -- seems lymphedema -- appreciate pt evalArthropathy of left knee Arthritis of left knee s/p L TKA 05/26/22Failed fundoplication Pyrosis Lesion of face or BCCA left lateral canthus 09/14/[address] Dillon 09/22/21 sutures removedLeft knee pain DEPO MEDROL 01/14/22 Arthrocentesis @ [facility] (during hosp stay for atrial tach), NEG.. referred to local ortho ([facility]).High risk medications (not anticoagulants) long-term use Amiodarone started, 07/2021 (after years on flecainide).. [ ] Ophtho, EP, Echo, PFTs .. short-term lasix.Cardiomyopathy Due to atrial tachycardia.. xferred to [facility], PM reprogrammed. Amiodarone replacing flecainide. Low-dose diuretics (see 08/11/21 [facility] Cardio note)..Vulvovaginal candidiasis 2' Jardiance .. trial monostat or diflucan . STOP Jardiance if janae returns.Esophagitis determined by biopsy Macular pucker Leg edema Leg weakness With standing .. Hx lumbar stenosis .. Hx spinal injection (?)Muscle spasm of left shoulder area Trapezius MM Spasm ..Deformity of toenail Right lumbar radiculopathy Spinal stenosis of lumbar region High risk medications (not anticoagulants) long-term use Flecainide - started by Dr. Hoffman flashes Hot Flashes x 6 mos, 06/13/19.Piriformis syndrome of right side Pelvic pain (02/07/13) Trochanteric bursitis, right hip (05/19/16) Primary osteoarthritis of right knee (01/10/17) s/p RT TKR Fall 2017Postnasal drip (01/09/15) Osteoarth NOS-unspec (07/06/11) Neurogenic pain of right lower extremity (09/19/15) Multinodular goiter (12/19/15) Impaired glucose tolerance (03/10/12) Hyperlipidemia (07/07/12) Family hx-breast malignancy (11/13/12) SISTER IN 60s Exertional dyspnea (01/28/15) Essential hypertension (01/18/13) FRS 13% .. 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 [facility] q6m x1 year, then annually. --[facility] 06/2016 Shakira Diaz MD Post-radiation association with new abd pain (?), micehlle, 05/26/17 Controlled type 2 diabetes mellitus without complication, without long-term current use of insulin (03/26/16) POOR CTL, 01/2021 (A1C 7.6) .. A1C goal 7.5 ... 7.1 today, 08/07/20. 6.8/6.9 in 11/2016. A1C 6.5 post weight loss and focused effort on reducing carbs/sweets. 06/02/18, michelle A1C remains @ 6.5 08/2018, good job! Chronic eczematoid otitis externa of both ears (01/22/16) Dr Jeffrey Cardenas Sensorineural hearing loss of both ears Urge incontinence urgency/frequencyHistory of postmenopausal bleeding Symptomatic bradycardia Surgical History History of total left knee replacement (TKR) (05/26/22) History of total knee arthroplasty (05/26/22) Status post right knee replacement Dr. Del Cid, Ortho. She is happy with knee, able to step down from sidewalk w/o fear per 03/02/18 appt discussion. COntinues to do well; seeing ortho for possible neuropathic pain (outer rt calf).upper GI Series (10/05/17) for sx of epigastric dysphagia,GERD. Done by Dr. Duncan. Impression: Moderate sized Hiatal Hernia. Marked gastroesophageal reflux.sentinal lymph node dissection (07/01/16) NEG for mets from endometriumReplacement of total knee joint (12/03/16) R knee Dr Alaniz (12/04/13) Hyseterectomy, Total Laparoscopic w/ BSO (07/01/16) +Endometrial cancerHernia, hiatal (banding) EGD - MAC (06/29/17) Colonoscopy - IV Sedation (03/17/16) Cholecystectomy Extraction of cataract B/LCardiac Cath, 2008 History of Surgical Procedure a. Cholecystectomy. b. Bilateral cataract surgery. c. Hiatal hernia repair 2008. d. Esophagus stretching 2013 - Dr. Ragsdale. e. Pacemaker 12/04/2013 Medications: See chart Subjective: Reports minimal left UE pain at rest. It hurts a lot with mobilization and attempted left UE movement. Objective: Rn came in upon sitting on commode secondary to HR in 150's Toileting with cg/min assist for balance in standing, set up for pericare, assist to pull up underwear and to move gown, assist for hand washing with wipe Mental Status: Patient is alert and oriented. Pain: see above Vital Signs: 7:50 am BP 98/61 94 HR per nursing. HR into 150's per Rn who entered room while patient on commode. ROM/Strength: Upper extremities: able to move right UE against gravity. able to move left hand with some shoulder discomfort. Lower extremities: able to move against gravity Sensation: Reports no numbness or tingling Soft tissue/edema: Brusing on left face, left knee Bed Mobility: Supine to sit slowly with HOB elevated, using right UE on mattress to assist to sitting Transfers: Sit to stand CGA slowly Gait: Ambulated 4, 3 feet with cane with close CGA, mildly unsteady. Treatment: supine LE ther ex x 10, all AROM Balance: Unable to stand without cg/min assist. [facility] AM-PAC 6 clicks Basic Mobility Inpatient Short Form: Raw Score:??13? CMS Score: 64.91% Informed Consent/Education:? Patient instructed in purpose of PT consult and plan of care and is agreeable Assessment:? Patient is an 83? year old female adm on 11/25/23 for left humeral fracture s/p fall outside her home.? Patient presents with left shoulder pain, decreased strength, decreased functional mobility, decreased balance and difficulty with ambulation. The patient would benefit from skilled inpatient services to improve these impairments to maximize function and safety. She will need to be able to mobilize independently to return home alone. She will have friends able to assist with some tasks. Patient is assessed as:? Low 94408?complexity based on the following: History: age, lives alone Examination: see above Presentation: Stable and uncomplicated? Decision Making:? Low (0 history, 1-2 exam, stable/predictable, easy 20) Physical Therapy Goals: 3 days Able to get in/out of bed with supervision only. Able to perform sit to/from stand with supervision only. Able to walk 50 feet with cane with supervision only. Independent with home exercise program Plan of Care/Treatment Plan: 1-2x/day, 7 days/week x 3 days. Plan of care has been reviewed with the ORDER RUNNER providing the service under Physical Therapy direction. Initiate Physical Therapy intervention for strengthening, bed mobility, transfers, gait, stairs, balance training, use of assistive device. DISCHARGE RECOMMENDATIONS: will need HHPT, make sure friends are able to assist with meals/errands Billing Charges: Treatment Units Time Duration Manual Therapy(25056) Hands-on techniques to modulate pain increase joint range of motion reduce or eliminate soft tissue swelling, inflammation, or restriction facilitate relaxation and improve contractile and non-contractile tissue extensibility ? ? Therapeutic Procedures (88260) Instruction in therapeutic exercises to develop strength and endurance, range of motion and flexibility. HEP instruction and review: Provided skilled instruction in proper exercise performance: Provided skilled manual cues to facilitate proper muscle recruitment and/or movement pattern 1 12 Neurological Re-Education(71603) To improve balance, coordination, kinesthetic and proprioceptive sensations. ? ? Ultrasound(06450) To promote healing. ? ? Gait Training(93098) ? ? Therapeutic Activity(65029) Instruction in dynamic activities with one on one patient contact by the provider to improve functional performance as follows: 1 ? 13 ? Self Care Training(80564) ? ? E-Stim (Attended)(04235) ? ? Low IE(52651) 1 18 Mod IE(36268) ? ? High IE(05196) ? ? Time Coded Treatment Time ? 25 Total Treatment Time ? 43
[2023-11-26] MEDS: Metoprolol 12.5 MG TAB PO ×2 (09:59→19:24)
--- NOTE | 2023-11-26 11:23 | PHA.REVIEW2 ---
Pharmacy Admission Review Admission Clinical Review Admission Pharmacy Review: Acute hypokalemia (Acute) Fracture, humerus closed (Acute) Hypomagnesemia (Acute) ranitidine Allergy (Severe, Verified 11/25/23 16:22) WHEEZING cefadroxil Allergy (Mild, Verified 11/25/23 16:22) Other (See Comment) empagliflozin (From Jardiance) Adverse Reaction (Severe, Verified 11/25/23 16:22) UTI metformin Adverse Reaction (Severe, Verified 11/25/23 16:22) Diarrhea ciprofloxacin Adverse Reaction (Intermediate, Verified 11/25/23 16:22) WEAKNESS pneumococcal 13-valent conjugate to (From Prevnar 13 (PF)) Adverse Reaction (Intermediate, Verified 11/25/23 16:22) temp and body aches sucralfate Adverse Reaction (Intermediate, Verified 11/25/23 16:22) N/V levofloxacin Adverse Reaction (Verified 11/25/23 16:22) Other (See Comment) Resuscitation Status DNR/DNI Height 5 ft 5 in Weight 76.4 kg Comments Comments/Follow Ups: Per morning meeting, patient will remain for observation for one more night and will be discharged tomorrow Pharmacy Admission Review Renal Dosing Renal Dosing: BUN 10 mg/dL (7-18) 11/26/23 06:17 Creatinine 0.6 mg/dL (0.55-1.02) 11/26/23 06:17 Medications needing adjustments: Intervened (CrCl 42.81 mL/min) List of meds needing interventions: Decreased oxycodone from q4h to q6h Anticoagulation Anticoagulation: Hgb 11.7 g/dL (11.2-15.7) 11/26/23 06:17 Hct 34.7 % (36.0-46.0) L 11/26/23 06:17 Plt Count 152 10^3/uL (130-400) 11/26/23 06:17 INR 1.1 (0.9-1.1) 11/25/23 16:26 Creatinine 0.6 mg/dL (0.55-1.02) 11/26/23 06:17 DVT Prophylaxis: Reviewed Medications: Enoxaparin (5mg PO BID) Opiate Usage Evaluate Pain Scale/Pains Meds: Reviewed (PRN hydromorphone and oxycodone) Scheduled Bowel Reg ordered if on Opiates?: Yes (docusate and PRN Miralax) Relevant Labs Relevant Labs: Sodium 139 mmol/L (136-145) 11/26/23 06:17 Potassium 3.4 mmol/L (3.5-5.1) L 11/26/23 06:17 Chloride 104 mmol/L (98-107) 11/26/23 06:17 Magnesium 2.2 mg/dL (1.8-2.4) 11/26/23 06:17 Electrolytes, C-Reactive P, ESR: Reviewed (K 3.4 - repleting with PO supplement) DM Control DM Control: Glucose 100 mg/dL (74-106) 11/26/23 06:17 Hemoglobin A1c 6.3 % (<5.7) H 11/25/23 16:26 Finger Stick Blood Glucose 116 0736 Finger Stick Blood Glucose 116 0736 DM Control: Reviewed Insulin Dosing, Diabetic Medication: Has order for SS insulin Cardiac Review Cardiac Review: Troponin I < 50 ng/L (< or =60) 11/26/23 06:17 BP, HR, EF%: Reviewed (BP 98/61 and HR 94) QTc Review QTc: Reviewed (444 from 11/25/23) IV to PO Switch IV Medications: Reviewed (hydromorphone) Home Meds Home Med List reviewed: Intervened Relevent Home Meds Not ordered & why?: Qvar (substituted with Asmanex per pharmacy protocol) and glargine (on hold - has order for SS insulin) Recently filled pantoprazole but is not on home med list. Reached out to nursing who is checking with patient to see if they take this at home. Waiting to hear back. Current Meds Current Medication Order Review: Reviewed Comments Comments/Follow Ups: Per morning meeting, patient will remain for observation for one more night and will be discharged tomorrow
[2023-11-26 11:39] VITALS: BP 100/64; PULSE 73; RESP 73; TEMP 36.5; O2SAT 99
[2023-11-26] MEDS: oxyCODONE 5 MG TAB PO ×2 (13:13→19:25)
--- NOTE | 2023-11-26 13:44 | PGE_ITS ---
Date of Service Date of service: 11/26/23 Time of Service: 13:45 Assessment and Plan Assessment and plan (1) Fracture, humerus closed: Status: Acute Assessment and plan: [id number]-[id number] with left comminuted, impacted proximal left humeral fracture. Maintain sling and swath OT and PT for routine evaluation treatment with anticipated home health services at discharge. uses a cane to walk outside only but does need both arms to ambulate in her home. She does live alone. Continue scheduled Tylenol with oxycodone for severe pain and hydromorphone IV for more severe pain while hospitalized Qualifiers: Encounter type: initial encounter Humerus Location: proximal Fracture morphology: other fracture Fracture alignment: nondisplaced Laterality: left Qualified Code(s): S42.295A - Other nondisplaced fracture of upper end of left humerus, initial encounter for closed fracture (2) Acute hypokalemia: Status: Acute Assessment and plan: Patient is on chronic diuretics for chronic edema which is stable. Continue oral potassium dose increased to twice daily from once daily. Trend labs. (3) Hypomagnesemia: Status: Acute Assessment and plan: Patient has a history of hypomagnesemia and is not able to tolerate magnesium oxide because of upset stomach. Received IV magnesium sulfate 2 g for repletion and will trial of magnesium gluconate daily for maintenance. (4) Chronic atrial fibrillation with RVR: Status: Chronic Assessment and plan: Controlled rate with patient to continue outpatient medical therapy. She is on Eliquis. (5) Type 2 diabetes mellitus: Status: Chronic Assessment and plan: Hold outpatient medical therapy and do glucometers before meals and at bedtime with short acting insulin coverage on sliding scale. Qualifiers: Diabetes mellitus long winder tender insulin use: with long winder tender use Diabetes mellitus complication status: without complication Qualified Code(s): E11.9 - Type 2 diabetes mellitus without complications; Z79.4 - senior care (current) use of insulin (6) Discharge planning issues: Status: Acute Assessment and plan: Anticipated discharge to home tomorrow if remains medically stable with home health PT and OT Discussed with Dr. Johnson Subjective Subjective Patient reports: no new complaints, still having pain, tolerating a regular diet, voiding w/o difficulty, no bowel movement and afebrile; denies shortness of breath Interval history since last seen: Reports pain with movement but at rest well-managed with current regimen. She has been reambulated but still feels generalized weakness. She is eating and drinking well voiding without difficulty. Denies any headache nausea or other complaints. Exam Narrative Exam Narrative: Elderly female of stated age in no acute distress her head and face with bruising on the left. Eyes nonicteric noninjected EOMs are intact oral mucosas moist neck is supple with no JVD full range of motion no C-spine tenderness her left upper extremity is in a sling she has good movement to her fingers good sensation strong radial pulse. Hand is warm. She does have bruising to bilateral upper extremities. Her respirations are even and unlabored cardiovascular regular rate and rhythm her abdomen is soft nontender bilateral lower extremities with no edema moves freely. Her skin various areas of ecchymosis scattered no lacerations or lesions noted. Neurologic she is awake alert oriented no focal deficits psychiatric normal mood and affect Objective Last Vital Signs Temp 36.5 C 11/26/23 11:39 Pulse 73 11/26/23 11:39 Resp 73 H 11/26/23 11:39 BP 100/64 11/26/23 11:39 Pulse Ox 99 11/26/23 11:39 Laboratory Results - last 24 hr 11/25/23 11/25/23 11/26/23 15:50 16:26 01:29 WBC 6.94 RBC 4.01 Hgb 12.7 Hct 37.5 MCV 94 MCH 31.7 MCHC 33.9 RDW 12.4 Plt Count 190 MPV 11.2 H PT Cancelled 11.0 INR Cancelled 1.1 APTT Cancelled 24.7 Sodium Cancelled 142 Potassium Cancelled 3.3 L Chloride Cancelled 106 Carbon Dioxide Cancelled 29.0 Anion Gap Cancelled 7.0 BUN Cancelled 12 Creatinine Cancelled 0.8 Est GFR (CKD-EPI 2020) Cancelled 72.61 Glucose Cancelled 110 H Hemoglobin A1c 6.3 H Calcium Cancelled 8.6 Magnesium 1.6 L Total Bilirubin Cancelled 0.59 AST Cancelled 22 ALT Cancelled 18 Alkaline Phosphatase Cancelled 69 Troponin I < 50 Total Protein Cancelled 6.7 Albumin Cancelled 3.3 L TSH 6.23 H 11/26/23 06:17 WBC 6.26 RBC 3.72 L Hgb 11.7 Hct 34.7 L MCV 93 MCH 31.5 MCHC 33.7 RDW 12.6 Plt Count 152 MPV 11.2 H PT INR APTT Sodium 139 Potassium 3.4 L Chloride 104 Carbon Dioxide 29.4 Anion Gap 5.6 BUN 10 Creatinine 0.6 Est GFR (CKD-EPI 2020) 88.45 Glucose 100 Hemoglobin A1c Calcium 8.7 Magnesium 2.2 Total Bilirubin 0.79 AST 25 ALT 21 Alkaline Phosphatase 70 Troponin I < 50 Total Protein 6.5 Albumin 3.2 L TSH Time Spent with Patient Time Spent with Patient: 35-49 minutes Time was spent: preparing to see the patient(eg.review tests), obtaining and/or reviewing separately otained hiistory, ordering medications,tests, procedures, indepentently interpreting results, counseling the patient and care coordination
[2023-11-26] MEDS: HYDROmorphone 2 MG/ML SYR 0.5 MG IVP (15:00)
[2023-11-26 15:13] VITALS: BP 103/65; PULSE 93; RESP 17; TEMP 37.1; O2SAT 95
[2023-11-26 19:31] VITALS: BP 105/81; PULSE 65; RESP 20; TEMP 37.4; O2SAT 94
[2023-11-26] MEDS: Insulin Aspart 300 UNITS/3 ML PEN SC (21:57)
[2023-11-26 23:21] VITALS: BP 118/69; PULSE 77; RESP 18; TEMP 36.6; O2SAT 97
[2023-11-27] MEDS: Acetaminophen 500 MG TAB 1000 MG PO ×2 (06:12→20:34)
[2023-11-27] MEDS: Levothyroxine 75 MCG TAB PO (06:13)
[2023-11-27 07:13] VITALS: BP 114/63; PULSE 97; RESP 18; TEMP 37.7; O2SAT 97
[2023-11-27] MEDS: Sucralfate 1 GM TAB PO ×4 (07:39→20:34)
[2023-11-27] MEDS: Metoprolol 12.5 MG TAB PO ×2 (08:24→20:34)
[2023-11-27] MEDS: Potassium Chloride 20 MEQ TABCR PO ×2 (08:25→20:34)
[2023-11-27] MEDS: Furosemide 20 MG TAB PO ×2 (08:25→15:30)
[2023-11-27] MEDS: Multivitamin TAB 1 TAB PO (08:25)
[2023-11-27] MEDS: Docusate Sodium 100 MG CAP PO ×2 (08:25→20:34)
[2023-11-27] MEDS: Normal Saline Flush 10 ML SYR IVP ×2 (08:25→20:35)
[2023-11-27] MEDS: Magnesium Gluconate 500 MG TAB PO (08:25)
[2023-11-27] MEDS: Apixaban 5 MG TAB PO ×2 (08:25→20:34)
[2023-11-27] MEDS: Mometasone 220 MCG 14 DOSE INHALER 1 PUFF IH ×2 (08:27→20:05)
--- NOTE | 2023-11-27 11:09 | PT.INTREAT ---
PT Notes Visit Reasons: Comminuted impacted fracture of right proximal Inpatient Physical Therapy Treatment Note [facility] Date: 11/27/23 SUBJECTIVE: Elaina states that she is doing ok. She c/o pain at fx site as well as wrist/forearm and hand. OBJECTIVE: []? PAIN: pain with mvmt of left UE VITALS: ?monitored by nsg. BED MOBILITY/TRANSFERS? pt seated in recliner. ? Sit-stand: CGA ? Stand-sit:CGA? Provided skilled cues and instruction on performance and technique throughout. ? Therapeutic Exercises (88989o4): Direct one-on-one instruction in therapeutic exercises to develop strength, endurance, range of motion and flexibility. ? Exercises ?A/AAROM of left UE including open/closing of the hand, all motions at wrist and elbow. Ambulation ? Assistive Device: SPC? Weight bearing: full Assist: SBA/CGA ? Distance:?30'x2? Deviation: slow careful mvmt. ? Provided skilled instruction in proper exercise performance ASSESSMENT:?no LOB or SOB noted with ambulation. Did encourage to open/close her hand frequently t/o the day as well as ice. PLAN: will continue to work on functional mobility per PT POC. TREATMENT CODE/TIME: 15 min. [id number] DISCHARGE RECOMMENDATION: home with services.
[2023-11-27 11:12] VITALS: BP 94/59; PULSE 89; RESP 18; TEMP 37; O2SAT 99
[2023-11-27] MEDS: Insulin Aspart 300 UNITS/3 ML PEN SC ×3 (11:42→22:31)
--- NOTE | 2023-11-27 12:22 | W.PM.PROGNOT ---
Date of Service Date of service: 11/27/23 Time of Service: 12:23 Assessment and Plan Assessment and plan (1) Fracture, humerus closed: Status: Acute Assessment and plan: [id number] with left comminuted, impacted proximal left humeral fracture. Maintain sling and swath OT and PT for routine evaluation treatment with anticipated home health services at discharge. uses a cane to walk outside only but does need both arms to ambulate in her home. She does live alone. Continue scheduled Tylenol with oxycodone for severe pain and hydromorphone IV for more severe pain while hospitalized Qualifiers: Encounter type: initial encounter Humerus Location: proximal Fracture morphology: other fracture Fracture alignment: nondisplaced Laterality: left Qualified Code(s): S42.295A - Other nondisplaced fracture of upper end of left humerus, initial encounter for closed fracture (2) Acute hypokalemia: Status: Acute Assessment and plan: Patient is on chronic diuretics for chronic edema which is stable. Continue oral potassium dose increased to twice daily from once daily. Trend labs. (3) Hypomagnesemia: Status: Acute Assessment and plan: Patient has a history of hypomagnesemia and is not able to tolerate magnesium oxide because of upset stomach. Received IV magnesium sulfate 2 g for repletion and will trial of magnesium gluconate daily for maintenance. (4) Chronic atrial fibrillation with RVR: Status: Chronic Assessment and plan: Controlled rate with patient to continue outpatient medical therapy. She is on Eliquis. (5) Type 2 diabetes mellitus: Status: Chronic Assessment and plan: Hold outpatient medical therapy and do glucometers before meals and at bedtime with short acting insulin coverage on sliding scale. Qualifiers: Diabetes mellitus intermediate card tender insulin use: with detention use Diabetes mellitus complication status: without complication Qualified Code(s): E11.9 - Type 2 diabetes mellitus without complications; Z79.4 - shelter (current) use of insulin (6) Discharge planning issues: Status: Acute Assessment and plan: Anticipated discharge to home tomorrow if remains medically stable with home health PT and OT vs rehab PT following Discussed with Dr. Collier Subjective Subjective Patient reports: no new complaints, still having pain, tolerating liquids well, tolerating a regular diet, voiding w/o difficulty, no bowel movement and afebrile; denies shortness of breath Exam Narrative Exam Narrative: Elderly female of stated age in no acute distress her head and face with bruising on the left. Eyes nonicteric noninjected EOMs are intact oral mucosas moist neck is supple with no JVD full range of motion no C-spine tenderness her left upper extremity is in a sling she has good movement to her fingers good sensation strong radial pulse. Hand is warm. She does have bruising to bilateral upper extremities. Her respirations are even and unlabored cardiovascular regular rate and rhythm her abdomen is soft nontender bilateral lower extremities with no edema moves freely. Her skin various areas of ecchymosis scattered no lacerations or lesions noted. Neurologic she is awake alert oriented no focal deficits psychiatric normal mood and affect Objective Last Vital Signs Temp 37 C 11/27/23 11:12 Pulse 89 11/27/23 11:12 Resp 18 11/27/23 11:12 BP 94/59 L 11/27/23 11:12 Pulse Ox 99 11/27/23 11:12 Time Spent with Patient Time Spent with Patient: 35-49 minutes Time was spent: preparing to see the patient(eg.review tests), obtaining and/or reviewing separately otained hiistory, ordering medications,tests, procedures, indepentently interpreting results, counseling the patient and care coordination
[2023-11-27 15:04] VITALS: BP 114/66; PULSE 93; RESP 18; TEMP 36.8; O2SAT 99
[2023-11-27 19:47] VITALS: BP 114/70; PULSE 110; RESP 18; TEMP 36.6; O2SAT 98
[2023-11-27] MEDS: oxyCODONE 5 MG TAB PO (20:34)
[2023-11-27 23:54] VITALS: BP 94/62; PULSE 87; RESP 18; TEMP 36.2; O2SAT 94
[2023-11-28 02:58] VITALS: BP 95/80; PULSE 82; RESP 18; TEMP 36.6; O2SAT 96
[2023-11-28] MEDS: Normal Saline Flush 10 ML SYR IVP ×2 (02:59→08:01)
[2023-11-28] MEDS: Acetaminophen 500 MG TAB 1000 MG PO (02:59)
[2023-11-28] MEDS: oxyCODONE 5 MG TAB PO (03:00)
[2023-11-28] MEDS: Levothyroxine 75 MCG TAB PO (06:22)
[2023-11-28] MEDS: Sucralfate 1 GM TAB PO ×2 (07:07→11:04)
[2023-11-28 07:46] VITALS: BP 106/61; PULSE 90; RESP 16; TEMP 36; O2SAT 94
[2023-11-28] MEDS: Mometasone 220 MCG 14 DOSE INHALER 1 PUFF IH (07:49)
[2023-11-28] MEDS: Ketoconazole 2% CREAM 15 GM TUBE TP (08:01)
[2023-11-28] MEDS: Metoprolol 12.5 MG TAB PO (08:01)
[2023-11-28] MEDS: Docusate Sodium 100 MG CAP PO (08:02)
[2023-11-28] MEDS: Magnesium Gluconate 500 MG TAB PO (08:02)
[2023-11-28] MEDS: Furosemide 20 MG TAB PO (08:02)
[2023-11-28] MEDS: Apixaban 5 MG TAB PO (08:02)
[2023-11-28] MEDS: Multivitamin TAB 1 TAB PO (08:02)
[2023-11-28] MEDS: Potassium Chloride 20 MEQ TABCR PO (08:03)
--- NOTE | 2023-11-28 09:22 | CMPROGNOTE_ITS ---
Date of service: 11/28/23 Time of Service: 09:23 Care Management Progress Note Progress Note Text Progress Note Text: Elaina is an 83 yo woman admitted on 11/25/23 s/p fracture of her left humerus. Elaina is right hand dominant. Elaina lives alone in senior housing at [facility]. Pt reports that she had been driving up until now, and will likely need to have one of her friends run her errands for the time being. Elaina lives in senior housing and feels very supported by her friends. Referral was sent to [place] [facility], and call was made today to expedite [employer] Whe[employer] delivery. Spoke with Rich who will start meals for Elaina tomorrow. 5 meals/week. Discharge Potential Discharge Needs: PT Evaluation and PCP F/U Appt Anticipated Barriers to Discharge: Other (inability to perform ADLs independently with broken humerus) Patient/Family Education Needs: Review discharge instructions, discuss Ask Me Three Transportation: Private vehicle Plan: Elaina will likely discharge with new home services for PT/OT , [employer] and will follow up with her PCP, ortho, and continue per plan of care. She will transport via private vehicle. CM will continue to follow. SDOH(Care Management) Screening Will the Patient Participate in the Screening?: Yes Do you worry about having a steady place to live?: no In the past 12 months, have you had to go without electric, gas, oil or water in your home?: no Have you or anyone in your house had to go without enough food to eat?: no Has lack of transportation kept you from medical appointments or from doing things needed for daily living?: no Has anyone in your support network made you feel unsafe for any reason?: no Anticipated HH Services Anticipated HH Services at Discharge [facility] [employer], OT and PT Anticipated Date of Discharge: 11/28/23. Following Provider: Mathieu.
--- NOTE | 2023-11-28 10:30 | W.PM.PROGNOT ---
Date of Service Date of service: 11/28/23 Time of Service: 10:30 Objective Last Vital Signs Temp 36 C L 11/28/23 07:46 Pulse 90 11/28/23 07:46 Resp 16 11/28/23 07:46 BP 106/61 11/28/23 07:46 Pulse Ox 94 11/28/23 07:46
[2023-11-28 11:35] VITALS: BP 106/60; PULSE 88; RESP 18; TEMP 36.7; O2SAT 97
[2023-11-28] MEDS: Insulin Aspart 300 UNITS/3 ML PEN SC (12:02)
[2023-11-28 12:19] LABS: Potassium 3.9 mmol/L (3.5-5.1)
--- NOTE | 2023-11-28 13:15 | CMDISCH_ITS ---
Date of service: 11/28/23 Time of Service: 13:15 LACE Index Scoring Tool Questions: Length of Stay (in days): 3 Was the patient admitted via the E.D.?: Yes Comorbidities: PVD and Diabetes w/o Complication E.D. Visits: 1 Answers: Total Score: 9 Risk of Readmission: Low Risk Care Management Discharge Plan Reason for Hospitalization: fracture of her left humerus, hypokalemia Discharge Plan: Elaina is discharging home with [facility] RN/PT/OT/[facility] services. Pt will follow up with her discharge plan of care and community providers as instructed. [facility] is coordinated by [facility] and will begin tomorrow. She will be driven home via private vehicle with her neighbor. Patient/Family Education Needs: Review discharge instructions, limitations, medications and plan to follow up with community providers. Discuss ask me three and goals of self care. Services Needed at Discharge: Home Health Care Services ([facility] RN/PT/OT/[facility]) SDOH Health Related Social Needs: No Data to Display Care Management Referrals: [facility] ([facility] was coordinated for patient prior to discharge)
--- NOTE | 2023-11-28 15:41 | DSE_ITS ---
Date of service: 11/28/23 Time of Service: 15:42 DS: Diagnosis Discharge Diagnosis (1) Fracture, humerus closed: Status: Acute (2) Acute hypokalemia: Status: Acute (3) Hypomagnesemia: Status: Acute (4) Chronic atrial fibrillation with RVR: Status: Chronic (5) Type 2 diabetes mellitus: Status: Chronic Discharge Plan Disposition Patient Disposition: Home W/Home Health Services Condition: Improving Discharge Details Reason For Visit: Comminuted Impacted Fracture of Right Proximal Hum Admit Date/Time: 11/25/23 21:03 Admit Provider: Nirav Laboy Attending Provider: Nirav Laboy Primary Care Provider: Vicenta Freed Hospital Course Hospital Course: This 83-year-old female patient living alone with a past medical history of atr ial fibrillation on Eliquis presented to the ED at [facility] on 11/25/2023 status post mechanical fall at home, outside while looking at her car for leaks. The patient reported bruises to her left cheek and left arm as well as pain. The ED workup showed an impacted closed fracture of her left proximal humerus. Labs showed hypokalemia and hypomagnesemia of an appearing chronic nature as the patient is on home diuretics. The patient denied symptoms of orthostasis, respiratory impairment or focal neurologic deficits. In the ED the patient received IV hydromorphone and oral Percocet for pain control. The hospitalist was consulted and the patient was admitted for observation and repletion of her electrolytes as well as pain management requiring acetaminophen and narcotics. During the stay, the patient continued to regular arm sling. Pain control was achieved with schedule acetaminophen and oxycodone as needed. Physical therapy consultation was completed with recommendation for home health physical therapy. The patient will also require occupational therapy via home health. Electrolytes are within normal level. Today the patient will be discharged home with home health physical therapy and occupational therapy as well as nursing and emergency medical service coordinator. Patient chronic condition were managed as per her home medicine regimen. The patient will need to follow-up with her primary care practitioner within 7 days of discharge. Discussed with Dr. Collier Home Meds and New Rx's Prescriptions: New oxycodone 5 mg Tablet 5 mg PO Q6H PRN PRNQty: 5 0RF polyethylene glycol 3350 17 gram Powder In Packet 17 g PO DAILY PRN PRN (Reason: Constipation) Qty: 14 0RF Continued (DME) compress.stocking,knee,reg,lrg Misc See Rx Instructions .ROUTE .MEDSUPPLY Qty: 1 0RF Rx Instructions: As directed, 20mmHg-30mmHg (pt unable to tolerate higher pressure) Mylanta Coat-Cool 1,200 mg-270 mg -80 mg/10 mL suspension 10 ml PO PRN PRN (DME) lancing device with lancets [[email or web address] Delica Plus Lanc Dev] Kit See Rx Instructions .ROUTE .MEDSUPPLY Qty: 1 0RF Rx Instructions: Monitor BS 2-3x/wk; E11.9, to achieve A1C under 7%, T 2 DM (DME) blood-glucose meter [OneTouch Verio Meter] Misc See Rx Instructions .ROUTE .MEDSUPPLY Qty: 1 0RF Rx Instructions: Monitor BS 2-3x/wk; E11.9, to achieve A1C under 7%, T 2 DM levothyroxine 75 mcg tablet 75 mcg PO DAILY Qty: 90 1RF Rx Instructions: estimated goal, ~ September 24, 2023, ik ketoconazole 2 % cream 1 applic topical DAILY 90 Days Qty: 60 3RF Rx Instructions: Apply to toenails once daily albuterol sulfate [ProAir HFA] 90 mcg/actuation HFA aerosol inhaler 2 puff Inhalation Q4H PRN PRN (Reason: shortness of breath or wheezing) Qty: 3 1RF furosemide 20 mg tablet 20 mg PO BID MDD 40mg Qty: 180 3RF Rx Instructions: Re-start @ 2/day Eliquis 5 mg tablet 5 mg PO BID Qty: 180 6RF metoprolol tartrate 25 mg tablet See Rx Instructions .ROUTE .COMPLEX Qty: 90 3RF Dose Instruction: TAKE 1/2 TABLET BY MOUTH TWICE DAILY Rx Instructions: TAKE 1/2 TABLET BY MOUTH TWICE DAILY potassium chloride 20 mEq tablet extended release 20 meq PO DAILY Qty: 90 3RF (DME) OneTouch Verio test strips Strip See Rx Instructions .ROUTE .MEDSUPPLY Qty: 200 3RF Rx Instructions: Monitor BS BID per CDE; E11.9, to achieve A1C under 7%, T2 DM Qvar RediHaler 40 mcg/actuation HFA aerosol breath activated 2 inh inhalation BID Qty: 10.6 1RF Rx Instructions: Trial QVAR per insurance (may need 80mcg trial) (DME) pen needle, diabetic [BD Ultra-Fine Mini Pen Needle] 31 gauge x 3/16 needle See Rx Instructions .ROUTE .COMPLEX Qty: 100 3RF Dose Instruction: TEST ONCE DAILY Rx Instructions: TEST ONCE DAILY sucralfate 1 gram tablet 1 g PO BID PRN (Reason: gastric pain) Qty: 60 1RF Rx Instructions: Mash (with water) into a slurry (DME) lancets [OneTouch Delica Plus Lancet] 33 gauge misc See Rx Instructions .ROUTE .COMPLEX Qty: 100 3RF Dose Instruction: TEST TWICE DAILY DIRECTED Rx Instructions: TEST TID for A1C goal <7, DM E11.9 insulin glargine 100 unit/mL (3 mL) insulin pen 10 unit subcut DAILY Qty: 15 1RF Rx Instructions: Start @ 10units and increase per CDE/PCP direction multivitamin 1 EACH capsule 1 ea PO DAILY docusate sodium [Colace] 100 mg capsule 100 mg PO BID Qty: 30 0RF Patient Comments: patient no longer taking Changed acetaminophen 500 mg tablet 1,000 mg PO TID Qty: 30 0RF Rx Instructions: Take two tablets up to every 8 hours as needed for pain Discharge Instructions Activity:: Activity as Tolerated Equipment/Supplies:: cane Diet:: heart healthy diabetic Discharge Orders Discharge Orders: Discharge Order (Routine); Ordered 11/28/23 Ordered By: Alexandra Gonzalez DS: Summary Time Spent with Patient providing and/or coordinating discharge services: Greater than 30 minutes Status at Discharge Functional status at discharge: uses cane/walker Overall status at discharge: patient is progressing back to baseline Mental Status: mental status grossly normal Speech and Movement: speech and movement normal Mood: congruent mood Affect: normal affect Quality:SDOH Health Related Social Needs: No Data to Display Exam Narrative Exam Narrative: Constitutional The patient is sitting in chair comfortable without acute distress and has average body habitus/is obese/ is thin. HENMT: Facial structures with left (cheek) sided old hematoma Eyes: Well aligned Neuro:alert and oriented to self, person, place time and situation. No neurological focal deficit Resp: Normal respiratory pattern, speaks in full sentences, unlabored breathing, clear lung bilaterally Cardio: regular rhythm, S1, S2, no murmur,, bilateral radial and dorsalis pedis pulses are positive GI: Abdomen is not distended, soft and non tender, bowel sounds are present Integumentary: No skin lesions or rash Extremities: strength 5/5 to bilateral lower extremities, left arm is in a sling and patient is able to move fingers/ intact sensation , right UE strength is intact Psych: RASS 0, congruent mood and normal affect. Psych Mental Status: mental status grossly normal Speech and Movement: speech and movement normal Mood: congruent mood Affect: normal affect DS: Data Vitals/I&O Vitals and I&O: Vital Signs Temperature 36.7 C 11/28/23 11:35 Temperature Source Tympanic 11/28/23 11:35 Pulse 88 11/28/23 11:35 Pulse Rhythm Irregular 11/28/23 08:51 Pulse 93 H 11/25/23 18:31 Respiratory Rate 18 11/28/23 11:35 Respiratory Effort Normal, Non-Labored 11/28/23 08:51 Respiratory Depth Normal 11/28/23 08:51 Respiratory Pattern Normal 11/28/23 08:51 Blood Pressure 106/60 11/28/23 11:35 Blood Pressure Mean 90 11/25/23 18:36 Pulse Oximetry 97 11/28/23 11:35 Oxygen Delivery Method Room Air 11/28/23 11:35 Oxygen Flow Rate 0 11/28/23 11:35 Pain Level 6 11/28/23 11:35 Comment RN informed of BP 11/27/23 11:12 Intake & Output 11/27/23 11/28/23 11/28/23 23:59 11:59 23:59 Intake Total 360 / 360 Output Total 200 / 600 700 / 700 Balance 160 / -240 -700 / -700 Weight 78.4 kg Intake: Oral 360 / 360 Output: Urine 200 / 600 700 / 700 Other: Urine Color Yellow Yellow Urine Appearance Clear Clear Voiding Methods Bedside Commode Bedside Commode Data Completed and Pending Labs on day of discharge: Labs from last 24 hours 11/28/23 11:30 Potassium 3.9 PFSH All Active Problems (Updated 11/26/23 @ 13:52 by Marj Armstrong NP) Discharge planning issues (Acute) Acute hypokalemia (Acute) Fracture, humerus closed (Acute) Phlegm in throat (Acute) sensation in throat then brings it up (vs reflux or vomit) Hypovitaminosis D (Acute) Thyroid nodule (Acute 01/28/15) 01/01/15 US 4mm nodule isthmus 05/15/15 US 4.5 nodule isthmus, ?7x5 nodule right Hypothyroidism (Chronic 01/02/13) States her muscles are getting sore, Especially in L arm, and also bone pain (pt read insert from pharmacy) States her knees are bothering as in, weakness and pain, as well, fluid is building up. PAD (peripheral artery disease) (Acute) Right - asymptomatic. Pt declines referral to [facility] vascular at this time. 06/2023. EO Asthma (Chronic 01/18/13) [employer] [facility] Rx per insurance, 05/2023, ik .. possible asthma; PFTs normal 04/27/2012.07/2013 Hypomagnesemia (Acute) Noted @ ED, 02/2021 .. replenished. Monitor [ ] Low serum albumin (Acute) Amiodarone pulmonary toxicity (Acute) Diastolic heart failure (Acute) Chronic atrial fibrillation with RVR (Chronic) On deep vein thrombosis (DVT) prophylaxis (Acute) Ingrown toenail (Acute) Onychomycosis (Acute) PVD (peripheral vascular disease) (Chronic) Venous insufficiency (Acute) Sacroiliac joint dysfunction of right side (Acute) Hiatal hernia (Chronic) 01/25/23 5cm ([facility]) Nail dystrophy (Acute) Hypokalemia (Acute) Critically low, SOB (shortness of breath) (Acute) Cont post hospitalization despite ABx/Recovery from PNA Diabetes mellitus due to underlying condition, uncontrolled, with hyperglycemia (Acute) A1C rise due to inactivity 2' back/knee pain & steroid use.. winter 2021 Insulin dose changed (Acute) Atrial fibrillation (Acute 07/06/11) normal echo and cath 2008; flecanide Rx; apixiban; echo 09/2013 EF 60%.. Type 2 diabetes mellitus (Chronic) A1C jump 2' limited ambulation & steroid use. [ ] Insulin due to intolerance of PO Rx, ik, 03/2022.. Recent A1C increase, from pre-diabetes to DM this past year.. Edema (Acute) LE edema , R>L .. notable, possibly 2' Jardiance intolerance, but possible lymphedema (?) Medication intolerance (Acute) Unable to tolerate Jardiance (candidiasis!), Metformin. Dysphagia, unspecified (Acute 07/07/12) EGD KD: mild esophagitis 10/[address] Ragsdale 09/23/[address] Duncan, [facility], [place], [place]. Impression: Gerd Dysphagia. Rule out secondary to esophageal ulcer,dysmotility, or from perhaps a failing Singh. recommeded: Upper GI Gerd protocaol discussed w/ pt. panel 2,B12 If pt continues sx, may want to repeat upper endoscopy. Plans to see her back in follwup. Gastroesophageal reflux disease (Acute 07/07/12) Managed with PPI for years, worsening x 2-3 months. Now associated with LUQ tenderness, 05/26/17. []H.pylori [] U/S LUQ ik IMPROVED with weight loss, 06/02.19, ik EGD rescheduled with Dr. Escobar (2' Margaret not yet taking appts @ [facility]), 05/26/17 .. Consulted, EGD sched for 06/29/17. note: s/p Singh, hernia repair, and esoph dilation (2013) 10/29/21 GI visit with f/u in 6w Atrophic gastritis without mention of hemorrhage (Acute 07/07/12) History of hiatal hernia (Acute) Reactive airway disease (Chronic) Medical History Iatrogenic hyperthyroidism Levothyroxine stopped, rechecked 08/14 (1 month later than planned) with very high TSH, so re-starting Rx High risk medication use Stopped (2022) ..Amiodarone since July, evaluating for tox (06/20/22 d/w [facility] 2' SOB w/NEG CTA & no improvement post diuresis (furosemide 40) Elevated serum free T4 level Cardiology STOPPED levothyroxine, 05/2023..high TSH, High T4, 03/2022 ... Hx low TSH and high T4 (08/2021) Sepsis ICU during [facility] Hospitalization (pneumonia with quick onset/worsening!) Lipedema of lower extremity nodular, symm, tender inner upper calves Atrial tachycardia per Cardiology, [facility] .. Admitted post xfer from [facility] ED (08/08/21). EF 50%. Am iodarone started; Flecainide stopped. Amiodarone stopped 2022 concern for pulm tox Pacemaker (09/16/17) Sees DARNELL Tejada ([facility]). Dual lead Medtronic pacemaker Adapta .. Placed 2013, Dr. Edin Robles. 99Medtronic dual lead pacemaker implanted 12/04/2013 .. Adapta [id number] .. RA Medtronic [id number], 11/2013.. RV [id number] 12/04/2013)) Atrioventricular block (07/07/12) pacemaker placement 12/04/2013; 5 sec asystoles last interrogation, 03/2017. Lymphedema nonpitting edema -- seems lymphedema -- appreciate pt eval Arthropathy of left knee Arthritis of left knee s/p L TKA 05/26/22 Failed fundoplication Pyrosis Lesion of face or BCCA left lateral canthus 09/14/[address] Dillon 09/22/21 sutures removed Left knee pain DEPO MEDROL 01/14/22 Arthrocentesis @ [facility] (during hosp stay for atrial tach), NEG.. referred to local ortho ([facility]). High risk medications (not anticoagulants) long-term use Amiodarone started, 07/2021 (after years on flecainide).. [ ] Ophtho, EP, Echo, PFTs .. short-term lasix. Cardiomyopathy Due to atrial tachycardia.. xferred to [facility], PM reprogrammed. Amiodarone replacing flecainide. Low-dose diuretics (see 08/11/21 [facility] Cardio note).. Vulvovaginal candidiasis 2' Jardiance .. trial monostat or diflucan . STOP Jardiance if janae returns. Esophagitis determined by biopsy Macular pucker Leg edema Leg weakness With standing .. Hx lumbar stenosis .. Hx spinal injection (?) Muscle spasm of left shoulder area Trapezius MM Spasm .. Deformity of toenail Right lumbar radiculopathy Spinal stenosis of lumbar region High risk medications (not anticoagulants) long-term use Flecainide - started by Dr. Douglass Hot flashes Hot Flashes x 6 mos, 06/13/19. Piriformis syndrome of right side Pelvic pain (02/07/13) Trochanteric bursitis, right hip (05/19/16) Primary osteoarthritis of right knee (01/10/17) s/p RT TKR Fall 2018 Postnasal drip (01/09/15) Osteoarth NOS-unspec (07/06/11) Neurogenic pain of right lower extremity (09/19/15) Multinodular goiter (12/19/15) Impaired glucose tolerance (03/10/12) Hyperlipidemia (07/07/12) Family hx-breast malignancy (11/13/12) SISTER IN 60s Exertional dyspnea (01/28/15) Essential hypertension (01/18/13) FRS 13% .. 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 [facility] q6m x1 year, then annually. --[facility] 06/2016 Shakira Diaz MD Post-radiation association with new abd pain (?), ik, 05/26/17 Controlled type 2 diabetes mellitus without complication, without long-term current use of insulin (03/26/16) POOR CTL, 01/2021 (A1C 7.6) .. A1C goal 7.5 ... 7.1 today, 08/07/20. 6.8/6.9 in 11/2016. A1C 6.5 post weight loss and focused effort on reducing carbs/sweets. 06/02/18, A1C remains @ 6.5 08/2018, good job! Chronic eczematoid otitis externa of both ears (01/22/16) Dr Jeffrey Cardenas Sensorineural hearing loss of both ears Urge incontinence urgency/frequency History of postmenopausal bleeding Symptomatic bradycardia Surgical History History of total left knee replacement (TKR) (05/26/22) History of total knee arthroplasty (05/26/22) Status post right knee replacement Dr. Del Cid, Ortho. She is happy with knee, able to step down from sidewalk w/o fear per 03/02/18 appt discussion. COntinues to do well; seeing ortho for possible neuropathic pain (outer rt calf). upper GI Series (10/05/17) for sx of epigastric dysphagia,GERD. Done by Dr. Duncan. Impression: Moderate sized Hiatal Hernia. Marked gastroesophageal reflux. sentinal lymph node dissection (07/01/16) NEG for mets from endometrium Replacement of total knee joint (12/03/16) R knee Dr Del Cid Pacemaker (12/04/13) Hyseterectomy, Total Laparoscopic w/ BSO (07/01/16) +Endometrial cancer Hernia, hiatal (banding) EGD - MAC (06/29/17) Colonoscopy - IV Sedation (03/17/16) Cholecystectomy Extraction of cataract B/L Cardiac Cath, 2008 History of Surgical Procedure a. Cholecystectomy. b. Bilateral cataract surgery. c. Hiatal hernia repair 2008. d. Esophagus stretching 2013 - Dr. Ragsdale. e. Pacemaker 12/04/2013 Family History Mother , old age at age 98. No problems noted. Father , Heart disease at age 64. Heart disease CA Sister , Colon Ca Personal history of malignant neoplasm Sister , Heart problems at age 72. Personal history of malignant neoplasm Breast cancer, dx'ed in her 60s Heart disease Sister Hypertensive disorder, systemic arterial Diabetes Sister Diabetes Sister Hypertensive disorder, systemic arterial Brother , Parkinson's at age 75. Personal history of malignant neoplasm Brother Parkinson's disease Brother , Heart condition at age 62. Hypertensive disorder, systemic arterial Diabetes Brother Hypertensive disorder, systemic arterial Diabetes Social History Smoking/Tobacco Use Status: Never Smoking risk assessment performed?: Yes Alcohol Intake: never Drug use: Never Substance use type: does not use Adopted: No Foster care: No Housing: apartment Number of Children: 0 number of grandchildren: 0 Communication Needs: Corrective Lenses current occupation: retired from [employer] Pets and animals: No Current gender identity: female What is your relationship status?: Panel score (0-1 are the most socially isolated patients): 0 Seatbelt use: always Working smoke detector in home: Yes Fire extinguisher in home: Yes Carbon monox detector in home: Yes Firearms in home: No Do you feel safe at home: Yes Do you feel safe in your relationship?: Yes Time Spent with Patient Time Spent with Patient: 45-69 minutes Time was spent: preparing to see the patient(eg.review tests), obtaining and/or reviewing separately otained hiistory, ordering medications,tests, procedures, referring, communicating with other health reservoir caretaker, indepentently interpreting results, counseling the patient and care coordination
--- NOTE | 2023-11-28 15:51 | PT.INDS ---
PT Notes Visit Reasons: Comminuted Impacted Fracture of Right Proximal Hum Inpatient Physical Therapy Discharge Summary Treatment Dates: 11/26/23 - 11/28/23 Precautions: fall risk, no left UE use ED note: Discussed case with [facility] orthopedist Dr. Samaniego, this may require surgical repair but is not to be done on an emergent basis. Recommend sling and pain control, with range of motion out of his sling a couple times a day being sure to mobilize the wrist, elbow, and fingers. Patient Profile/Admitting Diagnosis:? The patient is an 83 yo female adm on 11/25/23 s/p fall outside her home with left humeral fracture. Lives alone at [facility] in [place]. Has many friends around. Normally independent with cooking, cleaning, driving and shopping. Had started using a cane outside her home secondary to decrease balance on uneven surfaces. Has her own cane in the room and a shower bench at home. Home is one level with a ramp to enter. Subjective: Elaina states that she is doing well. She would like to try walking a little further today. Does have discomfort in LUE. Objective: Observation: Sitting up in chair with no lines. Sling to LUE, although has slipped to allow ulnar deviation of wrist, and elbow flexed to only approx 60*. This is adjusted, with improved comfort resulting. Mental Status: Patient is alert and oriented. ROM/Strength: able to partially open and close left hand. Bed Mobility: not assessed, as patient plans to sleep in lift chair Transfers: sit-stand: supervision, slow and cautious stand-sit: supervision Gait: Ambulated 120' with SBA, single point cane in LUE. Treatment: Adjusted sling and educated patient on appropriate positioning Instructed in gripping exercises for LUE Ambulated 120' with cane, SBA for improved activity tolerance. Informed Consent/Education:? Patient instructed in purpose of PT consult and plan of care and is agreeable Assessment:? Patient is an 83? year old female adm on 11/25/23 for left humeral fracture s/p fall outside her home.?She has demonstrated good independence and safety, and is appropriate for discharge home once medically stable. She requires HH PT upon discharge home for fall risk reduction and pain management. Physical Therapy Goals: 3 days Able to get in/out of bed with supervision only. (not met, but goal d/c'd as patient does not plan to sleep in bed initially) Able to perform sit to/from stand with supervision only. (MET) Able to walk 50 feet with cane with supervision only. (MET) Independent with home exercise program (MET) Plan of Care/Treatment Plan: D/C from PT services in acute care setting. DISCHARGE RECOMMENDATIONS: Home withHHPT, make sure friends are able to assist with meals/errands Bianka Vizcarra, PT, DPT [facility]
--- NOTE | 2023-11-28 15:57 | PDOC.HHF2F ---
Home Health Referral Home Health Orders Clinical synopsis of why skilled professionals are needed: This 83-year-old female patient living alone with a past medical history of atrial fibrillation on Eliquis presented to the ED at [facility] on 11/25/2023 status post mechanical fall at home, outside while looking at her car for leaks. The patient reported bruises to her left cheek and left arm as well as pain. The ED workup showed an impacted closed fracture of her left proximal humerus. Labs showed hypokalemia and hypomagnesemia of an appearing chronic nature as the patient is on home diuretics. The patient denied symptoms of orthostasis, respiratory impairment or focal neurologic deficits. In the ED the patient received IV hydromorphone and oral Percocet for pain control. The hospitalist was consulted and the patient was admitted for observation and repletion of her electrolytes as well as pain management requiring acetaminophen and narcotics. During the stay, the patient continued to regular arm sling. Pain control was achieved with schedule acetaminophen and oxycodone as needed. Physical therapy consultation was completed with recommendation for home health physical therapy. The patient will also require occupational therapy via home health. Electrolytes are within normal level. Today the patient will be discharged home with home health physical therapy and occupational therapy as well as nursing and medical office assistant. Patient chronic condition were managed as per her home medicine regimen. The patient will need to follow-up with her primary care practitioner within 7 days of discharge. Discussed with Dr. Collier Medical diagnosis necessitation home health referral: impacted closed fracture of her left proximal humerus, left arm sling Registered Nurse: Check all that apply Instruct on new or changed medication(s)/assess compliance: Ordered Assess for exacerbation of medical condition, instruct patient/caregivers on signs and symptoms to report for early detection: Ordered (worsening of pain despite med compliance ) Physical Therapist: Check all that apply Increase strength & endurance for safe mobility at home: Ordered To design/establish home maintenance program: Ordered Fall reduction therapy program for patient with history of frequent falls: Ordered Home safety evaluation and teaching/gait training including stair management (if applicable): Ordered Occupational Therapist: Evaluate and treat for patient unable to perform ADL/IADL/self-care: Ordered Upper extremity strengthening, range and motion: Ordered Microbiological Lab Technician: Assist with community resources: Ordered Assist with halfway care planning: Ordered Home Bound Status Requires the aid of supportive device (check all that apply): Cane Describe why leaving home would require a considerable and taxing effort: Side effects from pain medication (sedation/drowsiness) and Requires frequent rest periods Encounter Date and Reason: I certify that a FTF encounter for this patient was performed on November 28, 2023 and that such encounter was related to the primary reason the patient requires home health services. The encounter was conducted in the following manner: By me as the certifying physician, UKE DRIVER, PA or By an inpatient physician, UKE DRIVER or PA during an inpatient stay who communicated findings to me, Certification And Authentication I certify that I composed the above information based on my clinical judgment relating to this patient's medical condition and, if applicable, clinical findings communicated to me by the NPP or inpatient physician who performed the FTF encounter. Name of Provider that will be monitoring home health services: Vicenta Freed
== END 2023-11-28 16:38 | disposition home health service (06) | DRG 563 ==
LOC: ER 21:34 → MS 11-26 09:14
PROVIDERS: Nurse Practitioner Acute Care; Admitting Provider Family Medicine; Emergency Provider Nurse Practitioner Family; PCP Student in an Organized Health Care Education/Training Program; Visit Provider Family Medicine
DX: S42.292A Other displaced fracture of upper end of left humerus, initial encounter for closed fracture (principal); I48.20 Chronic atrial fibrillation, unspecified; I50.30 Unspecified diastolic (congestive) heart failure; E83.42 Hypomagnesemia; E87.6 Hypokalemia; E11.9 Type 2 diabetes mellitus without complications; Z79.4 Long term (current) use of insulin; W19.XXXA Unspecified fall, initial encounter; Z79.899 Other long term (current) drug therapy; Z79.01 Long term (current) use of anticoagulants; S00.83XA Contusion of other part of head, initial encounter; E03.9 Hypothyroidism, unspecified; I73.9 Peripheral vascular disease, unspecified; J45.909 Unspecified asthma, uncomplicated; I87.2 Venous insufficiency (chronic) (peripheral); K44.9 Diaphragmatic hernia without obstruction or gangrene; R60.0 Localized edema; K21.9 Gastro-esophageal reflux disease without esophagitis; Z95.0 Presence of cardiac pacemaker; I11.0 Hypertensive heart disease with heart failure; Z96.653 Presence of artificial knee joint, bilateral
CPT/HCPCS: 00123; 36415; 74177; 80053; 85027; 93005; 94640; 96365; 96374; 96376; 97110; 97161; 97530; 99285; 70450; 70486; 71260; 72125; 73030; 73564; 83036; 83735; 84132; 84443; 84484; 85610; 85730; 93010; 94664; 99223; 99232; 99239; J1170; J1815; J3475; J3490

== ENCOUNTER 2023-12-06 13:19 | Outpatient (CLI) | payer MEDICARE, SELFPAY ==
--- NOTE | 2023-12-06 09:00 | DI.RAD_ITS ---
Exam(s) XR SHOULDER LT COMPLETE 2+V EXAM: XR SHOULDER LT COMPLETE 2+V CLINICAL HISTORY: F/U FRACTURE. TECHNIQUE: 2D digital imaging was performed of the left shoulder. Three images were obtained. Gras hey and Y views were obtained. COMPARISON: CR XR SHOULDER LT COMPLETE 2+V from 11/25/2023 FINDINGS: BONES: There is again seen a comminuted fracture involving the proximal humerus. The fracture involv es the surgical neck and the greater tuberosity. There is displacement of the greater tuberosity fra cture components. No bony destructive lesion is seen. JOINTS: There is inferior subluxation of the humeral head relative to the glenoid which was not prese nt on the prior examination. There are degenerative changes seen at the acromioclavicular joint. SOFT TISSUE: Portions of the humerus are obscured by the patient's cardiac monitoring device. IMPRESSION: There is again seen a comminuted proximal left humeral fracture. There is now inferior subluxation o f the humeral head relative to the glenoid. DATA REPOSITORY: RADIATION DOSE DELIVERED:
== END 2023-12-06 13:20 | disposition home or self-care (01) ==
LOC: DIORS 13:19
PROVIDERS: PCP Student in an Organized Health Care Education/Training Program; Referring Provider Student in an Organized Health Care Education/Training Program; Visit Provider Student in an Organized Health Care Education/Training Program
DX: S42.202D Unspecified fracture of upper end of left humerus, subsequent encounter for fracture with routine healing; W19.XXXD Unspecified fall, subsequent encounter
CPT/HCPCS: 99213; 73030

== ENCOUNTER 2023-12-13 14:49 | Outpatient (REF) | payer MEDICARE, SELFPAY ==
[2023-12-13 19:01] LABS: HGB 11.5 g/dL (11.2-15.7)
[2023-12-13 19:33] LABS: Anion Gap 7.8 mmol/L (3-11); BUN 11 mg/dL (7-18); CO2 26.2 mmol/L (21.0-32.0); CREATININE 0.8 mg/dL (0.55-1.02); Chloride 106 mmol/L (98-107); Estimated GFR 72.61 (mL/min/1.73m2); Glucose 126 mg/dL (74-106); Potassium 4.5 mmol/L (3.5-5.1); Sodium 140 mmol/L (136-145); TSH (W/Ref FT4) 4.84 uIU/mL (0.36-3.74)
[2023-12-13 20:42] LABS: FREE T4 1.17 ng/dL (0.76-1.46)
== END 2023-12-13 14:50 | disposition home or self-care (01) ==
LOC: NCHCN 14:49
PROVIDERS: PCP Student in an Organized Health Care Education/Training Program; Visit Provider Student in an Organized Health Care Education/Training Program
DX: E03.9 Hypothyroidism, unspecified (principal); I10 Essential (primary) hypertension; R60.0 Localized edema
CPT/HCPCS: 80048; 84439; 84443; 85018

== ENCOUNTER 2024-01-11 15:42 | Outpatient (CLI) | payer MEDICARE, SELFPAY ==
--- NOTE | 2024-01-11 10:00 | DI.RAD_ITS ---
Exam(s) XR SHOULDER LT COMPLETE 2+V EXAM: XR SHOULDER LT COMPLETE 2+V INDICATION: F/U FRACTURE. COMPARISON: CR XR SHOULDER LT COMPLETE 2+V from 12/06/2023 TECHNIQUE: 2D digital imaging was performed. Two views. FINDINGS: Stable alignment of comminuted humeral head fracture. Inferior subluxation at the glenohumeral joint is now improved. No new abnormalities. DATA REPOSITORY: RADIATION DOSE DELIVERED:
--- NOTE | 2024-01-11 10:15 | DI.RAD_ITS ---
Exam(s) XR WRIST LT LIMITED EXAM: XR WRIST LT LIMITED CLINICAL HISTORY: WRIST PAIN S/P FALL. TECHNIQUE: 2D digital imaging was performed. Two views. COMPARISON: No exams were available for comparison FINDINGS: BONES: No acute fracture is present. No bony destructive lesion is seen. JOINTS: The carpal bones are normally aligned. Severe degenerative changes noted at the 1st carpal me tacarpal joint. Moderate degenerative changes at the scaphoid multangular joints. Advanced degenera tive changes noted in the visualized interphalangeal joints of the thumb and little finger. SOFT TISSUE: Vascular calcifications. Some swelling around ventral aspect of wrist. IMPRESSION: Degenerative changes. No acute bone abnormality. DATA REPOSITORY: RADIATION DOSE DELIVERED:
== END 2024-01-11 15:43 | disposition home or self-care (01) ==
LOC: DIORS 15:42
PROVIDERS: PCP Student in an Organized Health Care Education/Training Program; Referring Provider Student in an Organized Health Care Education/Training Program; Visit Provider Student in an Organized Health Care Education/Training Program
DX: S42.202D Unspecified fracture of upper end of left humerus, subsequent encounter for fracture with routine healing; S52.502D Unspecified fracture of the lower end of left radius, subsequent encounter for closed fracture with routine healing; X58.XXXD Exposure to other specified factors, subsequent encounter
CPT/HCPCS: 99213; 73030; 73100

== ENCOUNTER → 2024-01-12 10:33 | Outpatient (BNVA) | payer MEDICARE, SELFPAY | PROVIDERS: PCP Student in an Organized Health Care Education/Training Program; Visit Provider Internal Medicine Cardiovascular Disease | DX: I48.91 Unspecified atrial fibrillation (principal); Z95.0 Presence of cardiac pacemaker | CPT/HCPCS: 99213 ==

== ENCOUNTER → 2024-02-01 08:51 | Outpatient (BNVA) | payer MEDICARE, SELFPAY | PROVIDERS: PCP Student in an Organized Health Care Education/Training Program; Visit Provider Podiatrist | DX: L60.3 Nail dystrophy (principal); E08.65 Diabetes mellitus due to underlying condition with hyperglycemia; I73.89 Other specified peripheral vascular diseases; I87.2 Venous insufficiency (chronic) (peripheral); B35.1 Tinea unguium; R60.0 Localized edema; R20.8 Other disturbances of skin sensation; L65.9 Nonscarring hair loss, unspecified; L60.2 Onychogryphosis; R23.8 Other skin changes | CPT/HCPCS: 11719; 11721 ==

== ENCOUNTER 2024-02-22 10:30 | Outpatient (CLI) | payer MEDICARE, SELFPAY ==
--- NOTE | 2024-02-22 10:00 | DI.RAD_ITS ---
Exam(s) XR SHOULDER LT COMPLETE 2+V EXAM: XR SHOULDER LT COMPLETE 2+V INDICATION: F/U FRACTURE. COMPARISON: CR XR SHOULDER LT COMPLETE 2+V from 01/11/2024 TECHNIQUE: 2D digital imaging was performed. Two views. FINDINGS: Stable alignment of proximal humeral fracture. Some further healing noted. Pacemaker. DATA REPOSITORY: RADIATION DOSE DELIVERED:
--- NOTE | 2024-02-22 10:00 | DI.RAD_ITS ---
Exam(s) XR WRIST LT LIMITED EXAM: XR WRIST LT LIMITED CLINICAL HISTORY: F/U FRACTURE. TECHNIQUE: 2D digital imaging was performed. 2 views. COMPARISON: CR XR WRIST LT LIMITED from 01/11/2024 FINDINGS: No evidence of acute or subacute fracture. Degenerative changes again noted. IMPRESSION: No visible fracture. DATA REPOSITORY: RADIATION DOSE DELIVERED:
== END 2024-02-22 10:31 | disposition home or self-care (01) ==
LOC: DIORS 02-23 07:53
PROVIDERS: PCP Student in an Organized Health Care Education/Training Program; Referring Provider Student in an Organized Health Care Education/Training Program; Visit Provider Student in an Organized Health Care Education/Training Program
DX: S42.202D Unspecified fracture of upper end of left humerus, subsequent encounter for fracture with routine healing; S52.502D Unspecified fracture of the lower end of left radius, subsequent encounter for closed fracture with routine healing; X58.XXXD Exposure to other specified factors, subsequent encounter
CPT/HCPCS: 99213; 73030; 73100

== ENCOUNTER 2024-03-09 02:00 | Outpatient (CLI) | payer MEDICARE, SELFPAY ==
[2024-03-09 10:34] LABS: HCT 38.2 % (36.0-46.0); HGB 12.6 g/dL (11.2-15.7); MCH 31.3 pg (27.0-33.0); MCV 95 fL (80-95); MPV 10.6 fL (8.0-11.0); Platelet Count 228 10^3/uL (130-400); RBC 4.02 10^6/uL (3.93-5.22); RDW-SD 48.8 fL
[2024-03-09 10:46] LABS: Hemoglobin A1C 6.3 % (<5.7)
[2024-03-09 11:14] LABS: Folate 11.3 ng/mL (8.6-20.0)
[2024-03-09 11:26] LABS: ALT 21 U/L (14-59); AST 21 U/L (15-37); Albumin 3.6 g/dL (3.4-5.0); Alkaline Phosphatase 63 U/L (46-116); Anion Gap 8.9 mmol/L (3-11); BUN 13 mg/dL (7-18); Bilirubin, Total 0.53 mg/dL (0.2-1.0); CO2 30.1 mmol/L (21.0-32.0); CREATININE 0.8 mg/dL (0.55-1.02); Calcium 9.4 mg/dL (8.5-10.1); Chloride 105 mmol/L (98-107); Estimated GFR 72.16 (mL/min/1.73m2); Glucose 109 mg/dL (74-106); Potassium 3.8 mmol/L (3.5-5.1); Sodium 144 mmol/L (136-145); Total Protein 7.2 g/dL (6.4-8.2); Vitamin B12 217 pg/mL (193-986)
== END 2024-03-09 02:01 | disposition home or self-care (01) ==
LOC: LBO 02:00
PROVIDERS: PCP Student in an Organized Health Care Education/Training Program; Referring Provider Student in an Organized Health Care Education/Training Program; Visit Provider Student in an Organized Health Care Education/Training Program
DX: E11.9 Type 2 diabetes mellitus without complications (principal); Z79.4 Long term (current) use of insulin; E03.9 Hypothyroidism, unspecified; E55.9 Vitamin D deficiency, unspecified; E46 Unspecified protein-calorie malnutrition; K21.9 Gastro-esophageal reflux disease without esophagitis; Z91.89 Other specified personal risk factors, not elsewhere classified; Z87.898 Personal history of other specified conditions; I48.91 Unspecified atrial fibrillation; Z86.2 Personal history of diseases of the blood and blood-forming organs and certain disorders involving the immune mechanism
CPT/HCPCS: 36415; 80053; 85027; 82607; 82746; 83036; 84443

== ENCOUNTER → 2024-03-14 13:11 | Outpatient (BNVA) | payer MEDICARE, SELFPAY | PROVIDERS: PCP Student in an Organized Health Care Education/Training Program; Visit Provider Student in an Organized Health Care Education/Training Program | DX: Z95.810 Presence of automatic (implantable) cardiac defibrillator (principal); I48.91 Unspecified atrial fibrillation | CPT/HCPCS: 93280 ==

== ENCOUNTER 2024-05-10 00:20 | Outpatient (CLI) | payer MEDICARE, SELFPAY ==
--- NOTE | 2024-05-10 08:40 | DI.DEXA_ITS ---
Exam(s) XR DEXA BONE DENSITY W/WO PADILLA EXAM: XR DEXA BONE DENSITY W/WO PADILLA CLINICAL HISTORY: bone density SCREENING IN POSTMENOPAUSAL STATE,Z78.0 TECHNIQUE: COMPARISON: Comparison examination is 12/21/2011. FINDINGS: Lateral Spine Image: Unremarkable. No compression deformities identified. Left hip: Total T-Score: -0.8. Compares to 0.9 on the prior examination. Total Z-Score: 1.5 T- and Z-scores: Within normal limits. Lumbar Spine: Total T-Score: 0.1. This compares to 0.4 on the prior examination. Total Z-Score: 2.9 T- and Z-scores: Within normal limits. IMPRESSION: No evidence of osteoporosis.
--- NOTE | 2024-05-10 13:10 | DI.MAMMO_ITS ---
Exam(s) MAMMO SCREENING EXAM: MAMMO SCREENING CLINICAL HISTORY: screening,Z12.39 TECHNIQUE: Mammograms were interpreted according to the usual protocol including computer analysis w [employer] CAD system, tomosynthesis and C-view imaging. COMPARISON: 2015 through 2020 FINDINGS: The breasts are composed of scattered fibroglandular densities, Breast Density category B. No suspicious masses or suspicious microcalcifications are seen. Stable areas of nodularity in both breasts. Benign, coarse calcifications again noted in the right breast. No skin thickening or abnormal axillary lymph nodes are seen. There has been no significant change from prior exams. IMPRESSION: BI-RADS Category 2 - Negative Mammogram with benign findings. Yearly screening mammography is recom mended. Breast Density - Category B, scattered fibroglandular densities. A negative radiographic report should not delay biopsy if a dominant or clinically suspicious mass is present. Up to ten percent of cancers are not identified on mammography. A negative report may reinforce clinical impression. Adenosis and dense breasts may obscure an underlying neoplasm. False positive reports average 6 to 10%. Patient will receive a letter notifying them of these results.
== END 2024-05-10 00:40 ==
LOC: DI 00:21
PROVIDERS: PCP Student in an Organized Health Care Education/Training Program; Visit Provider Student in an Organized Health Care Education/Training Program
DX: Z12.31 Encounter for screening mammogram for malignant neoplasm of breast (principal); Z13.820 Encounter for screening for osteoporosis; Z78.0 Asymptomatic menopausal state
CPT/HCPCS: 77063; 77067; 77080

== ENCOUNTER 2024-05-30 15:30 | Outpatient (CLI) | payer MEDICARE, SELFPAY ==
--- NOTE | 2024-05-30 10:45 | DI.RAD_ITS ---
Exam(s) XR SHOULDER LT COMPLETE 2+V EXAM: XR SHOULDER LT COMPLETE 2+V CLINICAL HISTORY: F/U FRACTURE. TECHNIQUE: 2D digital imaging was performed of the left shoulder. Two images were obtained. Grashe y and axillary views were obtained. COMPARISON: CR XR SHOULDER LT COMPLETE 2+V from 02/22/2024 FINDINGS: BONES: There is an old healed proximal left humeral fracture deformity. No acute fracture is seen. No bony destructive lesion is seen. JOINTS: No dislocation present. There are degenerative changes seen at the acromioclavicular joint. The glenohumeral joint appears stable and is well maintained. SOFT TISSUE: There is a cardiac monitoring device seen overlying the left chest wall. IMPRESSION: No acute abnormality. DATA REPOSITORY: RADIATION DOSE DELIVERED:
== END 2024-05-30 15:31 | disposition home or self-care (01) ==
LOC: DIORS 15:31
PROVIDERS: PCP Student in an Organized Health Care Education/Training Program; Referring Provider Student in an Organized Health Care Education/Training Program; Visit Provider Student in an Organized Health Care Education/Training Program
DX: S42.202D Unspecified fracture of upper end of left humerus, subsequent encounter for fracture with routine healing (principal); S52.502D Unspecified fracture of the lower end of left radius, subsequent encounter for closed fracture with routine healing; X58.XXXD Exposure to other specified factors, subsequent encounter
CPT/HCPCS: 99213; 73030

== ENCOUNTER → 2024-06-04 09:50 | Outpatient (BNVA) | payer MEDICARE, SELFPAY | PROVIDERS: PCP Student in an Organized Health Care Education/Training Program; Referring Provider Student in an Organized Health Care Education/Training Program; Visit Provider Podiatrist | DX: I73.89 Other specified peripheral vascular diseases (principal); L60.3 Nail dystrophy; I87.2 Venous insufficiency (chronic) (peripheral); B35.1 Tinea unguium; R60.0 Localized edema; E08.65 Diabetes mellitus due to underlying condition with hyperglycemia; R09.89 Other specified symptoms and signs involving the circulatory and respiratory systems; L65.9 Nonscarring hair loss, unspecified; R20.8 Other disturbances of skin sensation; L60.8 Other nail disorders; L60.2 Onychogryphosis; R23.8 Other skin changes; I83.93 Asymptomatic varicose veins of bilateral lower extremities; M20.42 Other hammer toe(s) (acquired), left foot; M20.41 Other hammer toe(s) (acquired), right foot | CPT/HCPCS: 11719; 11721 ==

== ENCOUNTER → 2024-07-12 10:20 | Outpatient (BNVA) | payer MEDICARE, SELFPAY | PROVIDERS: PCP Student in an Organized Health Care Education/Training Program; Referring Provider Student in an Organized Health Care Education/Training Program; Visit Provider Internal Medicine Cardiovascular Disease | DX: I50.32 Chronic diastolic (congestive) heart failure (principal); I48.91 Unspecified atrial fibrillation; Z95.0 Presence of cardiac pacemaker | CPT/HCPCS: 99214 ==

== ENCOUNTER → 2024-09-03 09:50 | Outpatient (BNVA) | payer MEDICARE, SELFPAY | PROVIDERS: PCP Student in an Organized Health Care Education/Training Program; Referring Provider Student in an Organized Health Care Education/Training Program; Visit Provider Podiatrist | DX: L60.3 Nail dystrophy (principal); B35.1 Tinea unguium; E11.9 Type 2 diabetes mellitus without complications; I73.89 Other specified peripheral vascular diseases; R09.89 Other specified symptoms and signs involving the circulatory and respiratory systems; L65.9 Nonscarring hair loss, unspecified; R20.8 Other disturbances of skin sensation; R23.8 Other skin changes; I83.93 Asymptomatic varicose veins of bilateral lower extremities; L60.2 Onychogryphosis; L60.8 Other nail disorders; I87.2 Venous insufficiency (chronic) (peripheral) | CPT/HCPCS: 11721 ==

== ENCOUNTER 2024-09-10 04:13 | Outpatient (CLI) | payer MEDICARE, SELFPAY ==
[2024-09-10 08:24] LABS: HCT 40.8 % (36.0-46.0); HGB 13.8 g/dL (11.2-15.7); MCH 31.8 pg (27.0-33.0); MCHC 33.8 % (32.0-36.0); MCV 94 fL (80-95); Platelet Count 194 10^3/uL (130-400); RBC 4.34 10^6/uL (3.93-5.22); RDW 13.6 % (11.7-14.6); RDW-SD 47.5 fL; WBC 6.33 10^3/uL (4.4-10.8)
[2024-09-10 09:09] LABS: ALT 19 U/L (14-59); AST 24 U/L (15-37); Albumin 3.5 g/dL (3.4-5.0); Alkaline Phosphatase 59 U/L (46-116); BUN 11 mg/dL (7-18); CREATININE 0.7 mg/dL (0.55-1.02); Calcium 9.2 mg/dL (8.5-10.1); Calculated LDL 84 mg/dL (<100); Chloride 103 mmol/L (98-107); Cholesterol 181 mg/dL (<200); Glucose 116 mg/dL (74-106); HDL Cholesterol 83 mg/dL (>or=50); Potassium 3.8 mmol/L (3.5-5.1); Sodium 141 mmol/L (136-145); Total Protein 7.3 g/dL (6.4-8.2); Triglyceride 73 mg/dL (<150); Vitamin D 25 Total 19 ng/mL (30-100)
== END 2024-09-10 04:14 | disposition home or self-care (01) ==
PROVIDERS: PCP Student in an Organized Health Care Education/Training Program; Visit Provider Student in an Organized Health Care Education/Training Program
DX: I10 Essential (primary) hypertension (principal); Z91.89 Other specified personal risk factors, not elsewhere classified; J45.909 Unspecified asthma, uncomplicated; R60.0 Localized edema; K90.9 Intestinal malabsorption, unspecified
CPT/HCPCS: 36415; 80053; 80061; 82306; 85027; 84443

== ENCOUNTER 2024-09-12 07:57 | Outpatient (CLI) | payer MEDICARE, SELFPAY ==
--- NOTE | 2024-09-12 07:45 | RT.EKG_ITS ---
APPROVED REPORT Exam: Resting ECG Reason for Exam: afib Patient Location: O HR:78 bpm ECG Measurements Heart Rate 78 AXIS LA 172 P 0 QRSd 158 QRS -79 QT 425 T 80 QTc 485 Conclusion Ventricular-paced rhythm No further analysis attempted due to paced rhythm
== END 2024-09-12 07:58 | disposition home or self-care (01) ==
LOC: DI.CARD 07:57
PROVIDERS: PCP Student in an Organized Health Care Education/Training Program; Visit Provider Student in an Organized Health Care Education/Training Program
DX: I48.91 Unspecified atrial fibrillation (principal)
CPT/HCPCS: 93010

== ENCOUNTER → 2024-09-12 08:09 | Outpatient (BNVA) | payer MEDICARE, SELFPAY | PROVIDERS: PCP Student in an Organized Health Care Education/Training Program; Referring Provider Student in an Organized Health Care Education/Training Program; Visit Provider Registered Nurse | DX: I48.91 Unspecified atrial fibrillation (principal); Z95.0 Presence of cardiac pacemaker | CPT/HCPCS: 93280; 93005 ==

== ENCOUNTER → 2024-12-03 09:54 | Outpatient (BNVA) | payer MEDICARE, SELFPAY | PROVIDERS: PCP Student in an Organized Health Care Education/Training Program; Referring Provider Student in an Organized Health Care Education/Training Program; Visit Provider Podiatrist | DX: L60.3 Nail dystrophy (principal); L60.2 Onychogryphosis; B35.1 Tinea unguium; R60.0 Localized edema; I87.2 Venous insufficiency (chronic) (peripheral); I73.89 Other specified peripheral vascular diseases; R09.89 Other specified symptoms and signs involving the circulatory and respiratory systems; L65.9 Nonscarring hair loss, unspecified; R20.8 Other disturbances of skin sensation; R23.8 Other skin changes; I83.93 Asymptomatic varicose veins of bilateral lower extremities; M20.42 Other hammer toe(s) (acquired), left foot; M20.41 Other hammer toe(s) (acquired), right foot; L60.8 Other nail disorders; E11.8 Type 2 diabetes mellitus with unspecified complications | CPT/HCPCS: 11719; 11720 ==

== ENCOUNTER → 2025-01-10 10:13 | Outpatient (BNVA) | payer MEDICARE, SELFPAY | PROVIDERS: PCP Student in an Organized Health Care Education/Training Program; Referring Provider Student in an Organized Health Care Education/Training Program; Visit Provider Internal Medicine Cardiovascular Disease | DX: I50.32 Chronic diastolic (congestive) heart failure (principal); I48.91 Unspecified atrial fibrillation; Z95.0 Presence of cardiac pacemaker; Z79.01 Long term (current) use of anticoagulants | CPT/HCPCS: 99214 ==

== ENCOUNTER 2025-01-26 19:28 | Observation (INO) | payer MEDICARE, SELFPAY ==
[2025-01-26] VITALS (22 sets, daily range): BP systolic 108–132; BP diastolic 46–61; PULSE 62–86; RESP 11–24; TEMP 36.6; O2SAT 97–99
--- NOTE | 2025-01-26 19:30 | RT.EKG_ITS ---
APPROVED REPORT Exam: Resting ECG Reason for Exam: back pain Patient Location: E HR:75 bpm ECG Measurements Heart Rate 75 AXIS VA [id number] P [id number] QRSd 90 QRS 19 QT 357 T -88 QTc 399 Conclusion Afib/flut and V-paced complexes...other complexes, A-rate>240 Nonspecific T abnormalities, diffuse leads...T <-0.10mV, ant/lat/inf No STEMI
--- NOTE | 2025-01-26 19:59 | W.ED.GENAD ---
Discharge Plan Disposition Patient Disposition: Admit to [facility] Condition: Stable Discharge Details Clinical Impression: Bulging of lumbar intervertebral disc, Back pain Admit Date/Time: 01/27/25 00:23 Admit Provider: Jonah Jiménez Attending Provider: Jonah Jiménez Primary Care Provider: Vicenta Freed ED Provider: Jennifer Terry Discharge Data Discharge Date/Time-TO BE ENTERED AT DEPARTURE: 01/27/25 01:31 HPI General Mode of arrival: EMS. Date/Time Provider Initiated Documentation: 01/26/25 19:31. Limitations to Documentation: no limitations. Information obtained by: patient, RN notes reviewed and old records reviewed. HPI Narrative: 85-year-old female presents to the ER via EMS with a chief complaint left lower back pain and dysuria which began this morning. Patient states that she was having a difficult time getting herself up from a sitting position this morning she also endorses burning with urination. She denies any recent falls or bending injuries that she knows of. She denies any chest pain shortness of breath nausea vomiting diarrhea. Upon arrival she did have a run of approximately 4 beats of PVCs which resolved spontaneously. She does have a pacemaker, history of atrial fibrillation, PAD, PVD diabetes mellitus, spinal stenosis of the lumbar region, total left knee replacement, total right knee replacement humerus fracture a year ago. She is a DNR/DNI. Patient was given 1 g of IV Tylenol prior to arrival by EMS. Related Data Home Medications ?Medication ?Instructions ?Recorded ?Confirmed multivitamin 1 ea PO DAILY 11/05/12 01/26/25 compress.stocking,knee,reg,lrg #1 ea 03/20/21 01/26/25 calcium carb 1,200 mg-mag hydrox 10 ml PO PRN PRN 06/23/21 01/26/25 270 mg-simeth 80 mg/10 mL oral susp (Mylanta Coat-Cool) blood-glucose meter (Lazada IndonesiaTouch #1 ea 07/24/21 01/26/25 Verio Meter) lancing device with lancets kit #1 ea 07/24/21 01/26/25 (OneTouch Delica Plus Lancing Device kit) docusate sodium 100 mg capsule 100 mg PO BID #30 caps 05/26/22 01/26/25 (Colace) ketoconazole 2 % topical cream 1 applic topical DAILY 3 months 02/23/23 01/26/25 #60 grams albuterol sulfate 90 mcg/actuation 2 puff inhalation Q4H PRN PRN 05/13/23 01/26/25 aerosol inhaler (ProAir HFA) shortness of breath or wheezing ##3 acetaminophen 500 mg tablet 1,000 mg (2 x 500 mg) PO TID pain 11/28/23 01/26/25 #30 tabs polyethylene glycol 3350 17 gram 17 g PO DAILY PRN PRN Constipation 11/28/23 01/26/25 oral powder packet #14 ea cholecalciferol (vitamin D3) 125 125 mcg PO DAILY #90 caps 03/27/24 01/26/25 mcg (5,000 unit) capsule metoprolol tartrate 25 mg tablet See Rx Instructions .Route 04/07/24 01/26/25 .COMPLEX #90 tabs potassium chloride 20 mEq 20 meq PO DAILY #90 tabs 05/29/24 01/26/25 tablet,extended release sucralfate 1 gram tablet 1 g PO BID PRN gastric pain #60 06/29/24 01/26/25 tabs insulin glargine 100 unit/mL (3 See Rx Instructions .Route 07/18/24 01/26/25 mL) subcutaneous pen (Lantus .COMPLEX #15 mL Solostar U-100 Insulin) blood sugar diagnostic (Lazada IndonesiaTouch #200 strips 07/30/24 01/26/25 Verio test strips) lancets 33 gauge (OneTouch Delica #100 ea 07/30/24 01/26/25 Plus Lancet) levothyroxine 75 mcg tablet 75 mcg PO DAILY #90 tabs 08/13/24 01/26/25 pantoprazole 40 mg tablet,delayed 40 mg PO BID #180 tabs 09/04/24 01/26/25 release pen needle, diabetic 31 gauge x #100 ea 10/11/24 01/26/2507/08 apixaban 5 mg tablet (Eliquis) See Rx Instructions .Route 12/17/24 01/26/25 .COMPLEX #180 tabs beclomethasone dipropionate 40 See Rx Instructions .Route 01/01/25 01/26/25 mcg/actuation HFA breath activated .COMPLEX #10.6 grams aerosol (Qvar RediHaler) cyclobenzaprine 10 mg tablet 10 mg PO TID PRN muscle spasm #10 01/26/25 tabs lidocaine 5 % topical patch 1 patch topical DAILY Back Pain 01/26/25 #15 ea furosemide 20 mg tablet 20 mg PO BID edema #180 tabs 01/29/25 Previous Rx's ?Medication ?Instructions ?Recorded compress.stocking,knee,reg,lrg #1 ea 03/20/21 blood-glucose meter (OneTouch #1 ea 07/24/21 Verio Meter) lancing device with lancets kit #1 ea 07/24/21 (Lazada IndonesiaTouch Delica Plus Lancing Device kit) docusate sodium 100 mg capsule 100 mg PO BID #30 caps 05/26/22 (Colace) ketoconazole 2 % topical cream 1 applic topical DAILY 3 months 02/23/23 #60 grams albuterol sulfate 90 mcg/actuation 2 puff inhalation Q4H PRN PRN 05/13/23 aerosol inhaler (ProAir HFA) shortness of breath or wheezing ##3 acetaminophen 500 mg tablet 1,000 mg (2 x 500 mg) PO TID pain 11/28/23 #30 tabs polyethylene glycol 3350 17 gram 17 g PO DAILY PRN PRN Constipation 11/28/23 oral powder packet #14 ea cholecalciferol (vitamin D3) 125 125 mcg PO DAILY #90 caps 03/27/24 mcg (5,000 unit) capsule metoprolol tartrate 25 mg tablet See Rx Instructions .Route 04/07/24 .COMPLEX #90 tabs potassium chloride 20 mEq 20 meq PO DAILY #90 tabs 05/29/24 tablet,extended release sucralfate 1 gram tablet 1 g PO BID PRN gastric pain #60 06/29/24 tabs insulin glargine 100 unit/mL (3 See Rx Instructions .Route 07/18/24 mL) subcutaneous pen (Lantus .COMPLEX #15 mL Solostar U-100 Insulin) blood sugar diagnostic (OneTouch #200 strips 07/30/24 Verio test strips) lancets 33 gauge (Lazada IndonesiaTouch DelAMEE #100 ea 07/30/24 Plus Lancet) levothyroxine 75 mcg tablet 75 mcg PO DAILY #90 tabs 08/13/24 pantoprazole 40 mg tablet,delayed 40 mg PO BID #180 tabs 09/04/24 release pen needle, diabetic 31 gauge x #100 ea 10/11/24 3/16 apixaban 5 mg tablet (Eliquis) See Rx Instructions .Route 12/17/24 .COMPLEX #180 tabs beclomethasone dipropionate 40 See Rx Instructions .Route 01/01/25 mcg/actuation HFA breath activated .COMPLEX #10.6 grams aerosol (Qvar RediHaler) cyclobenzaprine 10 mg tablet 10 mg PO TID PRN muscle spasm #10 01/26/25 tabs lidocaine 5 % topical patch 1 patch topical DAILY Back Pain 01/26/25 #15 ea furosemide 20 mg tablet 20 mg PO BID edema #180 tabs 01/29/25 Allergies Allergy/AdvReac Type Severity Reaction Status Date / Time ranitidine Allergy Severe WHEEZING Verified 01/26/25 19:42 cefadroxil Allergy Mild Other (See Verified 01/26/25 19:42 Comment) empagliflozin (From AdvReac Severe UTI Verified 01/26/25 19:42 Jardiance) metformin AdvReac Severe Diarrhea Verified 01/26/25 19:42 ciprofloxacin AdvReac Intermediate WEAKNESS Verified 01/26/25 19:42 pneumococcal 13-valent AdvReac Intermediate temp and Verified 01/26/25 19:42 conjugate to (From Prevnar body aches 13 (PF)) levofloxacin AdvReac Other (See Verified 01/26/25 19:42 Comment) General Stated Complaint: Nk/Back Pain DEXTER: 3 Exam Narrative Exam Narrative: Constitutional: Alert and oriented x3. Appears stated age. Normal body habitus. Head: Normocephalic, no trauma. Eyes: Pupils PERRL, Red reflex noted, EOM's intact. Eyelids symmetrical without lesions, discharge, or swelling. Chest: RRR, does have frequent PVCs, she does have a pacemaker in place, normal S1, S2, distal pulses intact. Resp: Lungs clear to auscultation bilaterally, no wheezes, rales, or rhonchi. Abdomen: Soft, non-distended, Normoactive bowel sounds all 4 quads. Denies any abdominal pain. Musculoskeletal: Unable to assess gait, is complaining of right lower lumbar Skin: No suspicious rashes or lesions. Capillary refill less than 2 sec. Neurologic: Cranial nerves II-XII intact. Alert and oriented x 3. Motor: No deficits noted. Sensory: Intact bilaterally all 4 extremities. Hematologic/Lymphatic: No ecchymosis, no lymphadenopathy. Course Vital Signs Vital signs: Vital Signs Temperature 36.6 C 01/26/25 19:37 Pulse 83 01/26/25 19:37 Respiratory Rate 16 01/26/25 19:37 Blood Pressure 132/55 L 01/26/25 19:37 Pulse Oximetry 98 01/26/25 19:37 Temperature 36.6 C 01/26/25 19:37 Pulse 83 01/26/25 19:37 Respiratory Rate 16 01/26/25 19:37 Blood Pressure 132/55 L 01/26/25 19:37 Pulse Oximetry 98 01/26/25 19:37 Pain Level 10 01/26/25 19:37 Medical Decision Making 85-year-old female presents to the ER via EMS with a chief complaint left lower back pain and dysuria which began this morning. Patient states that she was having a difficult time getting herself up from a sitting position this morning she also endorses burning with urination. She denies any recent falls or bending injuries that she knows of. She denies any chest pain shortness of breath nausea vomiting diarrhea. Upon arrival she did have a run of approximately 4 beats of PVCs which resolved spontaneously. She does have a pacemaker, history of atrial fibrillation, PAD, PVD diabetes mellitus, spinal stenosis of the lumbar region, total left knee replacement, total right knee replacement humerus fracture a year ago. She is a DNR/DNI. Patient was given 1 g of IV Tylenol prior to arrival by EMS. Cardiac workup ordered including CBC CMP troponins, lipase urinalysis. Lidocaine patch and Tylenol p.o. No leukocytosis, CMP largely within normal limits glucose 124 magnesium slightly low at 1.72 troponins within normal limits at 8, lipase 15 no evidence of urinary tract infection. In-N-Out catheterization was done by staffing branch manager. Patient given oxycodone 5 mg which has had little to no effect on her pain. Will give 15 mg of Toradol IV and 2 mg of Valium p.o. At this time CT is pending. CT shows dextroscoliosis no acute abnormality. Patient to be discharged in the care of her family in hemodynamically stable condition. This text was generated using adRiseation system, please disregard any oddities of phrase or misspellings. Medical Records Medical records reviewed: Yes I reviewed the patient's medical records. Lab Data Lab results reviewed: Yes I reviewed the patient's lab results. Labs: Laboratory Tests Range/Units 01/26/25 01/26/25 01/26/25 20:05 21:24 21:34 WBC (4.4-10.8) 10^3/uL 7.63 RBC (3.93-5.22) 10^6/uL 3.90 L Hgb (11.2-15.7) g/dL 12.6 Hct (36.0-46.0) % 37.3 MCV (80-95) fL 96 H MCH (27.0-33.0) pg 32.3 MCHC (32.0-36.0) % 33.8 RDW (11.7-14.6) % 12.8 Plt Count (130-400) 10^3/uL 197 MPV (8.0-11.0) fL 10.8 Immature Gran % % 0.3 Neutrophils % % 69.9 Lymphocytes % % 18.5 Monocytes % % 9.8 Eosinophils % % 1.0 Basophils % % 0.5 Nucleated RBC % (0.0-0.3) % 0.0 Absolute Neutrophils (1.2-6.7) 10^3/uL 5.33 Absolute Lymphocytes (1.2-3.4) 10^3/uL 1.41 Absolute Monocytes (0.1-0.8) 10^3/uL 0.75 Absolute Eosinophils (0.0-0.7) 10^3/uL 0.08 Absolute Basophils (0.0-0.2) 10^3/uL 0.04 Sodium (136-145) mmol/L 141 Potassium (3.5-5.1) mmol/L 3.6 Chloride (98-107) mmol/L 104 Carbon Dioxide (21.0-32.0) mmol/L 28.2 Anion Gap (3-11) mmol/L 8.8 BUN (7-18) mg/dL 14 Creatinine (0.55-1.02) mg/dL 0.7 Est GFR (CKD-EPI 2020) (mL/min/1.73m2) 84.17 Glucose (74-106) mg/dL 124 H Calcium (8.5-10.1) mg/dL 8.7 Magnesium (1.8-2.4) mg/dL 1.7 L Total Bilirubin (0.2-1.0) mg/dL 0.6 AST (15-37) U/L 18 ALT (14-59) U/L 18 Alkaline Phosphatase (46-116) U/L 57 Troponin I (<or=51) ng/L 8 8 Total Protein (6.4-8.2) g/dL 6.7 Albumin (3.4-5.0) g/dL 3.4 Lipase (<78) U/L 15 Urine Color (Yellow) Yellow Urine Clarity (Clear) Clear Urine pH (5-8) 6.0 Ur Specific [place] (1.005-1.025) 1.015 Urine Protein (Neg-Trace) mg/dL Negative Urine Ketones (Negative) mg/dL Negative Urine Blood (Negative) Negative Urine Nitrite (Negative) Negative Urine Bilirubin (Negative) Negative Urine Urobilinogen (Up to 0.2) mg/dL 0.2 Ur Leukocyte Esterase (Negative) Negative Urine Glucose (Negative) mg/dL Negative Range/Units 01/26/25 22:48 WBC (4.4-10.8) 10^3/uL RBC (3.93-5.22) 10^6/uL Hgb (11.2-15.7) g/dL Hct (36.0-46.0) % MCV (80-95) fL MCH (27.0-33.0) pg MCHC (32.0-36.0) % RDW (11.7-14.6) % Plt Count (130-400) 10^3/uL MPV (8.0-11.0) fL Immature Gran % % Neutrophils % % Lymphocytes % % Monocytes % % Eosinophils % % Basophils % % Nucleated RBC % (0.0-0.3) % Absolute Neutrophils (1.2-6.7) 10^3/uL Absolute Lymphocytes (1.2-3.4) 10^3/uL Absolute Monocytes (0.1-0.8) 10^3/uL Absolute Eosinophils (0.0-0.7) 10^3/uL Absolute Basophils (0.0-0.2) 10^3/uL Sodium (136-145) mmol/L Potassium (3.5-5.1) mmol/L Chloride (98-107) mmol/L Carbon Dioxide (21.0-32.0) mmol/L Anion Gap (3-11) mmol/L BUN (7-18) mg/dL Creatinine (0.55-1.02) mg/dL Est GFR (CKD-EPI 2020) (mL/min/1.73m2) Glucose (74-106) mg/dL Calcium (8.5-10.1) mg/dL Magnesium (1.8-2.4) mg/dL Total Bilirubin (0.2-1.0) mg/dL AST (15-37) U/L ALT (14-59) U/L Alkaline Phosphatase (46-116) U/L Troponin I (<or=51) ng/L Cancelled Total Protein (6.4-8.2) g/dL Albumin (3.4-5.0) g/dL Lipase (<78) U/L Urine Color (Yellow) Urine Clarity (Clear) Urine pH (5-8) Ur Specific [place] (1.005-1.025) Urine Protein (Neg-Trace) mg/dL Urine Ketones (Negative) mg/dL Urine Blood (Negative) Urine Nitrite (Negative) Urine Bilirubin (Negative) Urine Urobilinogen (Up to 0.2) mg/dL Ur Leukocyte Esterase (Negative) Urine Glucose (Negative) mg/dL Quality:SDOH Health Related Social Needs: Health related social needs lonely/isolated Health related social needs details Pt declines help at this time PFSH All Active Problems (Updated 01/28/25 @ 00:03 by KRISTIAN VALVERDE) Elevated MCV (Acute) Back pain (Acute) Bulging of lumbar intervertebral disc (Acute) Long toenail (Acute) Vitamin D deficiency (Acute) DNR (do not resuscitate) (Acute) DNR/DNI, _transfer, +treat, +IV and abx. See 02/02/2024 COLST Fracture of left distal radius (Acute 11/25/23) ID after a few weeks.. splint/sling only and it seems to have healed Malnutrition compromising bodily function (Acute) Fracture of proximal end of left humerus (Acute ~11/25/23) Due to fall (looking over car issue), admitted to [facility], electrolyte abn; Home PT/OT requested History of uterine cancer (Acute) Counseling regarding end of life decision making (Acute) Pt told HH no CPR Phlegm in throat (Acute) sensation in throat then brings it up (vs reflux or vomit) Hypovitaminosis D (Acute) Thyroid nodule (Acute 01/28/15) 01/01/15 US 4mm nodule isthmus 05/15/15 US 4.5 nodule isthmus, ?7x5 nodule right Hypothyroidism (Chronic 01/02/13) States her muscles are getting sore, Especially in L arm, and also bone pain (pt read insert from pharmacy) States her knees are bothering as in, weakness and pain, as well, fluid is building up. PAD (peripheral artery disease) (Acute) Right - asymptomatic. Pt declines referral to [facility] vascular at this time. 06/2023. EO Asthma (Chronic 01/18/13) [employer] [facility] Rx per insurance, 05/2023, ik .. possible asthma; PFTs normal 04/27/2012.07/2013 Low serum albumin (Acute) Diastolic heart failure (Acute) Ingrown toenail (Acute) Onychomycosis (Acute) PVD (peripheral vascular disease) (Chronic) Venous insufficiency (Acute) Sacroiliac joint dysfunction of right side (Acute) Hiatal hernia (Chronic) 01/25/23 5cm ([facility]) Nail dystrophy (Acute) SOB (shortness of breath) (Acute) Cont post hospitalization despite ABx/Recovery from PNA Insulin dose changed (Acute) Atrial fibrillation (Acute 07/06/11) normal echo and cath 2008; flecanide Rx; apixiban; echo 09/2013 EF 60%.. Type 2 diabetes mellitus (Chronic) A1C jump 2' limited ambulation & steroid use. [ ] Insulin due to intolerance of PO Rx, ik, 03/2022.. Recent A1C increase, from pre-diabetes to DM this past year.. Edema (Acute) LE edema , R>L .. notable, possibly 2' Jardiance intolerance, but possible lymphedema (?). Hx pelvic radioation 2016 for endometrial CA. Medication intolerance (Acute) Unable to tolerate Jardiance (candidiasis!), Metformin. Gastroesophageal reflux disease (Acute 07/07/12) Managed with PPI for years, worsening x 2-3 months. Now associated with LUQ tenderness, 05/26/17. []H.pylori [] U/S LUQ ik IMPROVED with weight loss, 06/02.19, ik EGD rescheduled with Dr. Escobar (2' Margaret not yet taking appts @ [facility]), 05/26/17 .. Consulted, EGD sched for 06/29/17. note: s/p Singh, hernia repair, and esoph dilation (2013) 10/29/21 GI visit with f/u in 6w History of hiatal hernia (Acute) Reactive airway disease (Chronic) Medical History Palliative care encounter Advanced care planning/counseling discussion Amiodarone pulmonary toxicity On deep vein thrombosis (DVT) prophylaxis Diabetes mellitus due to underlying condition, uncontrolled, with hyperglycemia A1C rise due to inactivity 2' back/knee pain & steroid use.. winter 2021 Dysphagia, unspecified (07/07/12) EGD KD: mild esophagitis 10/[address] Ragsdale 09/23/[address] Duncan, [facility], [place], [place]. Impression: Gerd Dysphagia. Rule out secondary to esophageal ulcer,dysmotility, or from perhaps a failing Singh. recommeded: Upper GI Gerd protocaol discussed w/ pt. panel 2,B12 If pt continues sx, may want to repeat upper endoscopy. Plans to see her back in follwup. Atrophic gastritis without mention of hemorrhage (07/07/12) Iatrogenic hyperthyroidism Levothyroxine stopped, rechecked 08/14 (1 month later than planned) with very high TSH, so re-starting Rx Elevated serum free T4 level Cardiology STOPPED levothyroxine, 05/2023..high TSH, High T4, 03/2022 ... Hx low TSH and high T4 (08/2021) Sepsis ICU during [facility] Hospitalization (pneumonia with quick onset/worsening!) Lipedema of lower extremity nodular, symm, tender inner upper calves Atrial tachycardia per Cardiology, [facility] .. Admitted post xfer from [facility] ED (08/08/21). EF 50%. Amiodarone started; Flecainide stopped. Amiodarone stopped 2022 concern for pulm tox Pacemaker (09/16/17) Sees DARNELL Tejada ([facility]). Dual lead Medtronic pacemaker Adapta .. Placed 2013, Dr. Edin Robles. 99Medtronic dual lead pacemaker implanted 12/04/2013 .. Adapta [id number] .. RA Medtronic [id number], 11/2013.. RV [id number] 12/04/2013)) Atrioventricular block (07/07/12) pacemaker placement 12/04/2013; 5 sec asystoles last interrogation, 03/2017. Lymphedema nonpitting edema -- seems lymphedema -- appreciate pt eval Arthropathy of left knee Arthritis of left knee s/p L TKA 05/26/22 Failed fundoplication Pyrosis Lesion of face or BCCA left lateral canthus 09/14/[address] Dillon 09/22/21 sutures removed Left knee pain DEPO MEDROL 01/14/22 Arthrocentesis @ [facility] (during hosp stay for atrial tach), NEG.. referred to local ortho ([facility]). Vulvovaginal candidiasis 2' Jardiance .. trial monostat or diflucan . STOP Jardiance if janae returns. Esophagitis determined by biopsy Macular pucker Leg edema Leg weakness With standing .. Hx lumbar stenosis .. Hx spinal injection (?) Muscle spasm of left shoulder area Trapezius MM Spasm .. Deformity of toenail Right lumbar radiculopathy Spinal stenosis of lumbar region High risk medications (not anticoagulants) long-term use Flecainide - started by Dr. Douglass Hot flashes Hot Flashes x 6 mos, 06/13/19. Piriformis syndrome of right side Pelvic pain (02/07/13) Trochanteric bursitis, right hip (05/19/16) Primary osteoarthritis of right knee (01/10/17) s/p RT TKR Fall 2018 Postnasal drip (01/09/15) Osteoarth NOS-unspec (07/06/11) Neurogenic pain of right lower extremity (09/19/15) Multinodular goiter (12/19/15) Impaired glucose tolerance (03/10/12) Hyperlipidemia (07/07/12) Family hx-breast malignancy (11/13/12) SISTER IN 60s Exertional dyspnea (01/28/15) Essential hypertension (01/18/13) FRS 13% .. 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 [facility] q6m x1 year, then annually. --[facility] 06/2016 Shakira Diaz MD Post-radiation association with new abd pain (?), ik, 05/26/17 Controlled type 2 diabetes mellitus without complication, without long-term current use of insulin (03/26/16) POOR CTL, 01/2021 (A1C 7.6) .. A1C goal 7.5 ... 7.1 today, 08/07/20. 6.8/6.9 in 11/2016. A1C 6.5 post weight loss and focused effort on reducing carbs/sweets. 06/02/18, ik A1C remains @ 6.5 08/2018, good job! Chronic eczematoid otitis externa of both ears (01/22/16) Dr Jeffrey Cardenas Sensorineural hearing loss of both ears Urge incontinence urgency/frequency History of postmenopausal bleeding Symptomatic bradycardia Surgical History History of total left knee replacement (TKR) (05/26/22) History of total knee arthroplasty (05/26/22) Status post right knee replacement Dr. Del Cid, Ortho. She is happy with knee, able to step down from sidewalk w/o fear per 03/02/18 appt discussion. COntinues to do well; seeing ortho for possible neuropathic pain (outer rt calf). upper GI Series (10/05/17) for sx of epigastric dysphagia,GERD. Done by Dr. Duncan. Impression: Moderate sized Hiatal Hernia. Marked gastroesophageal reflux. sentinal lymph node dissection (07/01/16) NEG for mets from endometrium Replacement of total knee joint (12/03/16) R knee Dr Del Cid Pacemaker (12/04/13) Hyseterectomy, Total Laparoscopic w/ BSO (07/01/16) +Endometrial cancer Hernia, hiatal (banding) EGD - MAC (06/29/17) Colonoscopy - IV Sedation (03/17/16) Cholecystectomy Extraction of cataract B/L Cardiac Cath, 2008 History of Surgical Procedure a. Cholecystectomy. b. Bilateral cataract surgery. c. Hiatal hernia repair 2008. d. Esophagus stretching 2013 - Dr. Kindred. canela. Pacemaker 12/04/2013 Family History Mother , old age at age 98. No problems noted. Father , Heart disease at age 64. Heart disease [place] Sister , Colon [place] Personal history of malignant neoplasm Sister , Heart problems at age 72. Personal history of malignant neoplasm Breast cancer, dx'ed in her 60s Heart disease Sister Hypertensive disorder, systemic arterial Diabetes Sister Diabetes Sister Hypertensive disorder, systemic arterial Brother , Parkinson's at age 75. Personal history of malignant neoplasm Brother Parkinson's disease Brother , Heart condition at age 62. Hypertensive disorder, systemic arterial Diabetes Brother Hypertensive disorder, systemic arterial Diabetes Social History Smoking/Tobacco Use Status: Never Smoking risk assessment performed?: Yes Alcohol Intake: never Drug use: Never Substance use type: does not use Adopted: No Foster care: No Housing: apartment Number of Children: 0 number of grandchildren: 0 Communication Needs: Corrective Lenses current occupation: retired from [employer] Pets and animals: No Current gender identity: female What is your relationship status?: Panel score (0-1 are the most socially isolated patients): 0 Seatbelt use: always Working smoke detector in home: Yes Fire extinguisher in home: Yes Carbon monox detector in home: Yes Firearms in home: No Do you feel safe at home: Yes Do you feel safe in your relationship?: Yes
--- NOTE | 2025-01-26 20:00 | DI.CT_ITS ---
Exam(s) CT ABDOMEN PELVIS WO EXAM: CT ABDOMEN PELVIS WO CLINICAL HISTORY: Left lower lumbar pain, Dysuria. TECHNIQUE: Imaging Protocol: Axial computed tomography images with coronal and sagittal reformatted images were created and reviewed CONTRAST MATERIAL: Intravenous: none Oral: None COMPARISON: CT CT THORACIC LUMBAR SPINE REC from 11/25/2023 FINDINGS: VISUALIZED LUNG BASES: No infiltrates nor nodules nor pleural effusions evident in the lung bases.. 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 Moderate size hiatal hernia. ABDOMEN: There is no ascites. LIVER: There are no obvious focal hepatic lesions evident of this noninfused study. GALLBLADDER/BILIARY: Gallbladder surgically absent. CBD is not dilated. PANCREAS: No evidence of pancreatic mass nor dilatation of the pancreatic duct. SPLEEN: Spleen is not enlarged. No obvious intrasplenic lesions. ADRENALS: There are no significant adrenal masses. KIDNEYS:No cysts evident. No solid renal masses. No calculi nor hydronephrosis. . ABDOMINAL AORTA: Abdominal aorta is not significantly enlarged. LYMPH NODES: There is no retroperitoneal nor paraaortic adenopathy. ABDOMINAL WALL: No evidence of significant anterior abdominal wall nor inguinal hernia. GI: There is no evidence of bowel obstruction, free air, nor abscess. Non digested pill noted in the right-side of the colon. The appendix is not seen and may be surgically absent. PELVIS: LYMPH NODES: There is no intrapelvic nor inguinal adenopathy. GI: No evidence of appendicitis.Hyperdense sigmoid diverticuli but no evidence of obvious acute diverticulitis. URINARY BLADDER: No calculi nor obvious masses evident REPRODUCTIVE: Uterus is surgically absent. There are no abnormal adnexal masses and there is no free fluid in the pelvis OSSEOUS: No acute fractures. No osseous lesions. Degenerative scoliosis noted. Multilevel chronic degenerative disc disease. Advanced degenerative changes in the right hip; less so in the left hip. IMPRESSION: 1. No acute findings 2. Moderate size hiatal hernia noted 3. Previous cholecystectomy and hysterectomy. No evidence of bowel obstruction, free air, nor abscess. Preliminary virtual Radiology report was reviewed RADIATION DOSE DELIVERED: 588.92mGy.cm Total DLP DATA REPOSITORY: All CT scans at this facility are submitted to the National Radiology Data Registry (NRDR) Dose Index Registry (DIR) with the [employer] (A[employer]). RADIATION OPTIMIZATION: All CT scans at this facility use at least one of these dose optimization techniques: automated exposure control; mA and/or kV adjustment per patient size (includes targeted exams where dose is matched to clinical indication); or iterative reconstruction.
[2025-01-26 20:12] LABS: Abs Immature Grans 0.02 10^3/uL (0.0-0.06); HCT 37.3 % (36.0-46.0); HGB 12.6 g/dL (11.2-15.7); Immature Grans % 0.3 %; MCH 32.3 pg (27.0-33.0); MCHC 33.8 % (32.0-36.0); MCV 96 fL (80-95); MPV 10.8 fL (8.0-11.0); Platelet Count 197 10^3/uL (130-400); RBC 3.90 10^6/uL (3.93-5.22); RDW 12.8 % (11.7-14.6); RDW-SD 44.5 fL; WBC 7.63 10^3/uL (4.4-10.8)
[2025-01-26] MEDS: Lidocaine 5% Patch 1 PATCH TP (20:12)
[2025-01-26 20:33] LABS: ALT 18 U/L (14-59); AST 18 U/L (15-37); Albumin 3.4 g/dL (3.4-5.0); Alkaline Phosphatase 57 U/L (46-116); Anion Gap 8.8 mmol/L (3-11); BUN 14 mg/dL (7-18); Bilirubin, Total 0.6 mg/dL (0.2-1.0); CO2 28.2 mmol/L (21.0-32.0); Calcium 8.7 mg/dL (8.5-10.1); Chloride 104 mmol/L (98-107); Estimated GFR 84.17 (mL/min/1.73m2); Glucose 124 mg/dL (74-106); Lipase 15 U/L (<78); Magnesium 1.7 mg/dL (1.8-2.4); Potassium 3.6 mmol/L (3.5-5.1); Sodium 141 mmol/L (136-145); Total Protein 6.7 g/dL (6.4-8.2); Troponin I 8 ng/L (<or=51)
[2025-01-26] MEDS: oxyCODONE 5 MG TAB PO (20:51)
[2025-01-26 21:42] LABS: Glucose Negative (Negative)
[2025-01-26 21:47] LABS: Troponin I 8 ng/L (<or=51)
[2025-01-26] MEDS: diazePAM 2 MG TAB PO (22:19)
[2025-01-26] MEDS: Ketorolac 15 MG/ML VIAL IVP (22:20)
--- NOTE | 2025-01-26 22:27 | DI.VRAD_ITS ---
PROCEDURE INFORMATION: Exam: CT Abdomen And Pelvis Without Contrast Exam date and time: 01/26/2025 8:15 PM Age: 85 years old Clinical indication: Other: Lbp; Left lower lumbar pain, dysuria TECHNIQUE: Imaging protocol: Computed tomography of the abdomen and pelvis without contrast. COMPARISON: CT CHEST/ABD/PEL W 11/25/2023 5:17 PM FINDINGS: Lungs: Lung bases clear. Heart: Heart only partially included in the field of view. Pacemaker leads partially visualized in the right atrium and ventricle. Diaphragm: 4.0 cm x 3.8 cm hiatal hernia. Liver: Grossly unremarkable unenhanced liver. Gallbladder and biliary ducts: Prior cholecystectomy. No biliary dilatation. Pancreas: Pancreas partially obscured by close apposition of adjacent structures but at least moderately atrophic. Clinical correlation recommended to exclude pancreatic insufficiency. Spleen: Grossly unremarkable unenhanced spleen. Adrenal glands: Normal appearing adrenal glands. Kidneys and ureters: Grossly unremarkable unenhanced kidneys. No radiopaque urinary tract stones, hydronephrosis, or evidence of recent stone passage. Stomach and bowel: No oral contrast. Stomach partially decompressed. No small bowel dilatation to suggest obstruction. Scattered colonic diverticula. No evidence of diverticulitis or colitis. 5 mm x 5 mm x 12 mm oblong calcific density finding in the cecum on images 213 of series 3 and 29 of series 4 suspicious for ingested foreign material or possibly an ingested hyperdense capsule. Appendix: Normal appendix. Intraperitoneal space: No gross ascites or free air. Vasculature: Tortuous abdominal aorta, following spinal curvature. No aneurysmal dilatation. Lymph nodes: No pathologically enlarged mesenteric, retroperitoneal, or pelvic sidewall lymph nodes. Urinary bladder: Urinary bladder partially collapsed but grossly unremarkable, as seen. Reproductive: Prior hysterectomy. Ovaries not identified, obscured if present. Correlation with surgical history recommended. Bones/joints: Dextroscoliotic curvature through the lumbar spine with rightward listhesis of L3 relative to L4. Extensive lumbar degenerative change with discogenic degeneration, vacuum disc deformities, marginal osteophytic ridging, and facet arthrosis at multiple levels. 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 Soft tissues: No significant ventral or inguinal hernia. IMPRESSION: 1. No acute bowel pathology demonstrated. 5 mm x 5 mm x 12 mm oblong calcific density finding in the cecum on images 213 of series 3 and 29 of series 4 suspicious for ingested foreign material or possibly an ingested hyperdense capsule. 2. 4.0 cm x 3.8 cm hiatal hernia. 3. Dextroscoliotic curvature through the lumbar spine with rightward listhesis of L3 on L4 and extensive multilevel disc degeneration Dictated and Authenticated by: Kareem Mcelroy MD. Orderin Eufemia Borjas MD
--- NOTE | 2025-01-26 23:24 | ED.PROG_ITS ---
Date of service: 01/26/25 Time of Service: 23:24 Medical Decision Making This patient was signed out to me. Please see previous notes for H&P and initial eval. In brief, 85yo F presenting with lower back pain and dysuria. Labs, urine, and CT all reassuring. Has received oxycodone, toradol, valium, lidocaine patch, tyelnol from EMS. Signed out pending ambulatory trial. Patient motivated to go home and with good effort on ambulatory but unable to ambulate even with walker due to pain. Neurological intact with no numbness, weakness, or saddle anesthesia and aside from dysuria no new bowel or bladder symptoms. Not suggestive of acute cord compression, cauda equina, spinal epidural abscess, osteomyelitis, or other emergent process. No fracture noted on CT. Given her inability to ambulate and anti coagulated with high risk of falls (especially if given additional opiates or muscle relaxers) warrants observation stay for pain management and PT when available. Discussed with [facility] hospitalist Dr Jiménez; pt accepted to medicine service for further workup and management. Awaiting orders and transfer to the floor. Discharge Plan Disposition Patient Disposition: Admit to [facility] Condition: Stable Discharge Details Clinical Impression: Bulging of lumbar intervertebral disc, Back pain Primary Care Provider: Vicenta Freed ED Provider: Jennifer Terry Meds and New Rx's Prescriptions: New cyclobenzaprine 10 mg tablet 10 mg PO TID PRN (Reason: muscle spasm) Qty: 10 0RF lidocaine 5 % adhesive patch,medicated 1 patch topical DAILY Qty: 15 0RF Rx Instructions: leave on most painful area for up to 12 hrs No Action (DME) compress.stocking,knee,reg,lrg Misc See Rx Instructions .ROUTE .MEDSUPPLY Qty: 1 0RF Rx Instructions: As directed, 20mmHg-30mmHg (pt unable to tolerate higher pressure) Mylanta Coat-Cool 1,200 mg-270 mg -80 mg/10 mL suspension 10 ml PO PRN PRN (DME) lancing device with lancets [[employer], Part [employer] Delica Plus Lanc Dev] Kit See Rx Instructions .ROUTE .MEDSUPPLY Qty: 1 0RF Rx Instructions: Monitor BS 2-3x/wk; E11.9, to achieve A1C under 7%, T 2 DM (DME) blood-glucose meter [Clinverse Verio Meter] [facility] See Rx Instructions .ROUTE .MEDSUPPLY Qty: 1 0RF Rx Instructions: Monitor BS 2-3x/wk; E11.9, to achieve A1C under 7%, T 2 DM potassium chloride 20 mEq tablet extended release 20 meq PO DAILY Qty: 90 3RF ketoconazole 2 % cream 1 applic topical DAILY 90 Days Qty: 60 3RF Rx Instructions: Apply to toenails once daily albuterol sulfate [ProAir HFA] 90 mcg/actuation HFA aerosol inhaler 2 puff Inhalation Q4H PRN PRN (Reason: shortness of breath or wheezing) Qty: 3 1RF cholecalciferol (vitamin D3) 125 mcg (5,000 unit) capsule 125 mcg PO DAILY Qty: 90 2RF Rx Instructions: Start Vitamin D supplement (bone health) over the winter furosemide 20 mg tablet 20 mg PO BID MDD 40mg Qty: 180 3RF Rx Instructions: Re-start @ 2/day metoprolol tartrate 25 mg tablet See Rx Instructions .ROUTE .COMPLEX Qty: 90 3RF Dose Instruction: TAKE 1/2 TABLET BY MOUTH TWICE DAILY Rx Instructions: TAKE 1/2 TABLET BY MOUTH TWICE DAILY sucralfate 1 gram tablet 1 g PO BID PRN (Reason: gastric pain) Qty: 60 2RF Rx Instructions: Mash (with water) into a slurry insulin glargine [Lantus Solostar U-100 Insulin] 100 unit/mL (3 mL) insulin pen See Rx Instructions .ROUTE .COMPLEX Qty: 15 1RF Dose Instruction: INJECT 10 UNITS (0.1ML) SUBCUTANEOUSLY DAILY FOR MANAGEMENT OF DIABETES WITH A1C LESS THAN 7.5 (START AT 10 UNITS AND INCREASE DIRECTED PER CDE/PCP DIRECTION) Rx Instructions: INJECT 10 UNITS (0.1ML) SUBCUTANEOUSLY DAILY FOR MANAGEMENT OF DIABETES WITH A1C LESS THAN 7.5 (START AT 10 UNITS AND INCREASE DIRECTED PER CDE/PCP DIRECTION) (DME) OneTouch Verio test strips Strip See Rx Instructions .ROUTE .COMPLEX Qty: 200 3RF Dose Instruction: USE TO MONITOR BLOOD SUGARS TWO TIMES A DAY Rx Instructions: USE TO MONITOR BLOOD SUGARS TWO TIMES A DAY (DME) lancets [OneTouch Delica Plus Lancet] [facility] See Rx Instructions .ROUTE .COMPLEX Qty: 100 3RF Dose Instruction: TEST TWICE DAILY DIRECTED Rx Instructions: Check Blood sugars three times a day. DX: E11.9 DM Type II. Keep A1c below 7 levothyroxine 75 mcg tablet 75 mcg PO DAILY Qty: 90 1RF Rx Instructions: estimated goal, ~ September 24, 2023, ik pantoprazole 40 mg tablet,delayed release (DR/EC) 40 mg PO BID Qty: 180 3RF (DME) pen needle, diabetic 31 gauge x 3/16 needle See Rx Instructions .ROUTE .COMPLEX Qty: 100 3RF Dose Instruction: TEST ONCE DAILY Rx Instructions: TEST ONCE DAILY Eliquis 5 mg tablet See Rx Instructions .ROUTE .COMPLEX Qty: 180 3RF Dose Instruction: TAKE 1 TABLET BY MOUTH TWICE DAILY Rx Instructions: TAKE 1 TABLET BY MOUTH TWICE DAILY Qvar RediHaler 40 mcg/actuation HFA aerosol breath activated See Rx Instructions .ROUTE .COMPLEX Qty: 10.6 1RF Dose Instruction: INHALE TWO PUFFS BY MOUTH TWICE A DAY Rx Instructions: INHALE TWO PUFFS BY MOUTH TWICE A DAY multivitamin 1 EACH capsule 1 ea PO DAILY docusate sodium [Colace] 100 mg capsule 100 mg PO BID Qty: 30 0RF Patient Comments: patient no longer taking polyethylene glycol 3350 17 gram Powder In Packet 17 g PO DAILY PRN PRN (Reason: Constipation) Qty: 14 0RF acetaminophen 500 mg tablet 1,000 mg PO TID Qty: 30 0RF Rx Instructions: Take two tablets up to every 8 hours as needed for pain
--- NOTE | 2025-01-26 23:41 | NUR.NOTE ---
Nursing Note: Pt cleared for d/c home per OWEN Fall, provided pain controlled well enough to pass ambulation test. Pt attempted x2, and unable to stand up from stretcher both w/ assist from x2 personnel and w/ a walker and staff assist. Both weakness and pain a factor in inability to ambulate. MD Terry at bedside to assess. Pt live at home alone, and though she lives in a single story home, both her and her neighbor who is at bedside express hesitation at her being able to be safe at home w/ current pain and weakness
[2025-01-27] VITALS (49 sets, daily range): BP systolic 121–142; BP diastolic 44–76; PULSE 62–78; RESP 9–20; TEMP 36–36.9; O2SAT 90–100
--- NOTE | 2025-01-27 00:25 | W.PM.HP.N ---
Date of service: 01/27/25 Time of Service: 00:25 Assessment and Plan Assessment and plan (1) Weakness: Status: Acute Assessment and plan: Consult placed for PT in the a.m. Hopefully with the night sleep and medication with therapy she will be able to regain her strength and able to go home. (2) Atrial fibrillation: Status: Acute Assessment and plan: Patient is on Eliquis and is currently rate controlled. (3) Diastolic heart failure: Status: Acute Assessment and plan: Patient is actively followed by . Continue with medical management. (4) DNR (do not resuscitate): Status: Acute Assessment and plan: Patient reiterated her choices for DNR/DNI (5) Type 2 diabetes mellitus: Status: Chronic Assessment and plan: Continue with medical management (6) Low magnesium level: Status: Acute Assessment and plan: replace with orals (7) Elevated MCV: Status: Acute Assessment and plan: Consider outpatient workup versus follow-up labs in the next 24 hours. History of Present Illness History of Present Illness Chief Complaint: back pain Narrative: This is an 85-year-old female who presents to the ED with acute back pain. Patient denies any trauma or history of kidney stones. Patient did have a CT scan done which was indicative of scoliosis but also had a possible foreign body this was found incidentally as well as a hiatal hernia 4x3.8 centimeters. Patient was to be discharged home but when she tried to walk she was unable to use her walker safely. Considering the patient lives alone, is on Eliquis, has been given pain meds including narcotics but decision was made to admit her for observation. Patient is aware of the decision and is willing to stay in the hospital. Review of Systems All systems reviewed & are unremarkable except as noted in HPI and below PFSH All Active Problems (Updated 01/27/25 @ 00:30 by Jonah Jiménez MD) Elevated MCV (Acute) Low magnesium level (Acute) Weakness (Acute) Back pain (Acute) Bulging of lumbar intervertebral disc (Acute) Long toenail (Acute) Vitamin D deficiency (Acute) DNR (do not resuscitate) (Acute) DNR/DNI, _transfer, +treat, +IV and abx. See 02/02/2024 COLST Fracture of left distal radius (Acute 11/25/23) ID after a few weeks.. splint/sling only and it seems to have healed Malnutrition compromising bodily function (Acute) Fracture of proximal end of left humerus (Acute ~11/25/23) Due to fall (looking over car issue), admitted to [facility], electrolyte abn; Home PT/OT requested History of uterine cancer (Acute) Counseling regarding end of life decision making (Acute) Pt told HH no CPR Phlegm in throat (Acute) sensation in throat then brings it up (vs reflux or vomit) Hypovitaminosis D (Acute) Thyroid nodule (Acute 01/28/15) 01/01/15 US 4mm nodule isthmus 05/15/15 US 4.5 nodule isthmus, ?7x5 nodule right Hypothyroidism (Chronic 01/02/13) States her muscles are getting sore, Especially in L arm, and also bone pain (pt read insert from pharmacy) States her knees are bothering as in, weakness and pain, as well, fluid is building up. PAD (peripheral artery disease) (Acute) Right - asymptomatic. Pt declines referral to [facility] vascular at this time. 06/2023. EO Asthma (Chronic 01/18/13) [employer] [facility] Rx per insurance, 05/2023, ik .. possible asthma; PFTs normal 04/27/2012.07/2013 Low serum albumin (Acute) Diastolic heart failure (Acute) Ingrown toenail (Acute) Onychomycosis (Acute) PVD (peripheral vascular disease) (Chronic) Venous insufficiency (Acute) Sacroiliac joint dysfunction of right side (Acute) Hiatal hernia (Chronic) 01/25/23 5cm ([facility]) Nail dystrophy (Acute) SOB (shortness of breath) (Acute) Cont post hospitalization despite ABx/Recovery from PNA Insulin dose changed (Acute) Atrial fibrillation (Acute 07/06/11) normal echo and cath 2008; flecanide Rx; apixiban; echo 09/2013 EF 60%.. Type 2 diabetes mellitus (Chronic) A1C jump 2' limited ambulation & steroid use. [ ] Insulin due to intolerance of PO Rx, ik, 03/2022.. Recent A1C increase, from pre-diabetes to DM this past year.. Edema (Acute) LE edema , R>L .. notable, possibly 2' Jardiance intolerance, but possible lymphedema (?). Hx pelvic radioation 2016 for endometrial CA. Medication intolerance (Acute) Unable to tolerate Jardiance (candidiasis!), Metformin. Gastroesophageal reflux disease (Acute 07/07/12) Managed with PPI for years, worsening x 2-3 months. Now associated with LUQ tenderness, 05/26/17. []H.pylori [] U/S LUQ ik IMPROVED with weight loss, 06/02.19, ik EGD rescheduled with Dr. Escobar (2' Margaret not yet taking appts @ [facility]), 05/26/17 .. Consulted, EGD sched for 06/29/17. note: s/p Singh, hernia repair, and esoph dilation (2013) 10/29/21 GI visit with f/u in 6w History of hiatal hernia (Acute) Reactive airway disease (Chronic) Medical History Palliative care encounter Advanced care planning/counseling discussion Amiodarone pulmonary toxicity On deep vein thrombosis (DVT) prophylaxis Diabetes mellitus due to underlying condition, uncontrolled, with hyperglycemia A1C rise due to inactivity 2' back/knee pain & steroid use.. winter 2021 Dysphagia, unspecified (07/07/12) EGD KD: mild esophagitis 10/[address] Ragsdale 09/23/[address] Duncan, [facility], [place], [place]. Impression: Gerd Dysphagia. Rule out secondary to esophageal ulcer,dysmotility, or from perhaps a failing Singh. recommeded: Upper GI Gerd protocaol discussed w/ pt. panel 2,B12 If pt continues sx, may want to repeat upper endoscopy. Plans to see her back in follwup. Atrophic gastritis without mention of hemorrhage (07/07/12) Iatrogenic hyperthyroidism Levothyroxine stopped, rechecked 08/14 (1 month later than planned) with very high TSH, so re-starting Rx Elevated serum free T4 level Cardiology STOPPED levothyroxine, 05/2023..high TSH, High T4, 03/2022 ... Hx low TSH and high T4 (08/2021) Sepsis ICU during [facility] Hospitalization (pneumonia with quick onset/worsening!) Lipedema of lower extremity nodular, symm, tender inner upper calves Atrial tachycardia per Cardiology, [facility] .. Admitted post xfer from [facility] ED (08/08/21). EF 50%. Amiodarone started; Flecainide stopped. Amiodarone stopped 2022 concern for pulm tox Pacemaker (09/16/17) Sees DARNELL Tejada ([facility]). Dual lead Medtronic pacemaker Adapta .. Placed 2013, Dr. Edin Robles. 99Medtronic dual lead pacemaker implanted 12/04/2013 .. Adapta [id number] .. RA Medtronic [id number], 11/2013.. RV [id number] 12/04/2013)) Atrioventricular block (07/07/12) pacemaker placement 12/04/2013; 5 sec asystoles last interrogation, 03/2017. Lymphedema nonpitting edema -- seems lymphedema -- appreciate pt eval Arthropathy of left knee Arthritis of left knee s/p L TKA 05/26/22 Failed fundoplication Pyrosis Lesion of face or BCCA left lateral canthus 09/14/[address] Dillon 09/22/21 sutures removed Left knee pain DEPO MEDROL 01/14/22 Arthrocentesis @ [facility] (during hosp stay for atrial tach), NEG.. referred to local ortho ([facility]). Vulvovaginal candidiasis 2' Jardiance .. trial monostat or diflucan . STOP Jardiance if janae returns. Esophagitis determined by biopsy Macular pucker Leg edema Leg weakness With standing .. Hx lumbar stenosis .. Hx spinal injection (?) Muscle spasm of left shoulder area Trapezius MM Spasm .. Deformity of toenail Right lumbar radiculopathy Spinal stenosis of lumbar region High risk medications (not anticoagulants) long-term use Flecainide - started by Dr. Douglass Hot flashes Hot Flashes x 6 mos, 06/13/19. Piriformis syndrome of right side Pelvic pain (02/07/13) Trochanteric bursitis, right hip (05/19/16) Primary osteoarthritis of right knee (01/10/17) s/p RT TKR Fall 2018 Postnasal drip (01/09/15) Osteoarth NOS-unspec (07/06/11) Neurogenic pain of right lower extremity (09/19/15) Multinodular goiter (12/19/15) Impaired glucose tolerance (03/10/12) Hyperlipidemia (03/15/13) Family hx-breast malignancy (11/13/12) SISTER IN 60s Exertional dyspnea (01/28/15) Essential hypertension (01/18/13) FRS 13% .. 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 [facility] q6m x1 year, then annually. --[facility] 06/2016 Shakira Diaz MD Post-radiation association with new abd pain (?), ik, 05/26/17 Controlled type 2 diabetes mellitus without complication, without long-term current use of insulin (03/26/16) POOR CTL, 01/2021 (A1C 7.6) .. A1C goal 7.5 ... 7.1 today, 08/07/20. 6.8/6.9 in 11/2016. A1C 6.5 post weight loss and focused effort on reducing carbs/sweets. 06/02/18, michelle A1C remains @ 6.5 08/2018, good job! Chronic eczematoid otitis externa of both ears (01/22/16) Dr Jeffrey Cardenas Sensorineural hearing loss of both ears Urge incontinence urgency/frequency History of postmenopausal bleeding Symptomatic bradycardia Surgical History History of total left knee replacement (TKR) (05/26/22) History of total knee arthroplasty (05/26/22) Status post right knee replacement Dr. Del Cid, Ortho. She is happy with knee, able to step down from sidewalk w/o fear per 03/02/18 appt discussion. COntinues to do well; seeing ortho for possible neuropathic pain (outer rt calf). upper GI Series (10/05/17) for sx of epigastric dysphagia,GERD. Done by Dr. Duncan. Impression: Moderate sized Hiatal Hernia. Marked gastroesophageal reflux. sentinal lymph node dissection (07/01/16) NEG for mets from endometrium Replacement of total knee joint (12/03/16) R knee Dr Del Cid Pacemaker (12/04/13) Hyseterectomy, Total Laparoscopic w/ BSO (07/01/16) +Endometrial cancer Hernia, hiatal (banding) EGD - MAC (06/29/17) Colonoscopy - IV Sedation (03/17/16) Cholecystectomy Extraction of cataract B/L Cardiac Cath, 2008 History of Surgical Procedure a. Cholecystectomy. b. Bilateral cataract surgery. c. Hiatal hernia repair 2008. d. Esophagus stretching 2013 - Dr. Ragsdale. [place]. Pacemaker 12/04/2013 Family History Mother , old age at age 98. No problems noted. Father , Heart disease at age 64. Heart disease [place] Sister , Colon [place] Personal history of malignant neoplasm Sister , Heart problems at age 72. Personal history of malignant neoplasm Breast cancer, dx'ed in her 60s Heart disease Sister Hypertensive disorder, systemic arterial Diabetes Sister Diabetes Sister Hypertensive disorder, systemic arterial Brother , Parkinson's at age 75. Personal history of malignant neoplasm Brother Parkinson's disease Brother , Heart condition at age 62. Hypertensive disorder, systemic arterial Diabetes Brother Hypertensive disorder, systemic arterial Diabetes Social History Smoking/Tobacco Use Status: Never Smoking risk assessment performed?: Yes Alcohol Intake: never Drug use: Never Substance use type: does not use Adopted: No Foster care: No Housing: apartment Number of Children: 0 number of grandchildren: 0 Communication Needs: Corrective Lenses current occupation: retired from [employer] Pets and animals: No Current gender identity: female What is your relationship status?: Panel score (0-1 are the most socially isolated patients): 0 Seatbelt use: always Working smoke detector in home: Yes Fire extinguisher in home: Yes Carbon monox detector in home: Yes Firearms in home: No Do you feel safe at home: Yes Do you feel safe in your relationship?: Yes Meds Allergies and Home Medications Allergies Allergy/AdvReac Type Severity Reaction Status Date / Time ranitidine Allergy Severe WHEEZING Verified 01/26/25 19:42 cefadroxil Allergy Mild Other (See Verified 01/26/25 19:42 Comment) empagliflozin (From AdvReac Severe UTI Verified 01/26/25 19:42 Jardiance) metformin AdvReac Severe Diarrhea Verified 01/26/25 19:42 ciprofloxacin AdvReac Intermediate WEAKNESS Verified 01/26/25 19:42 pneumococcal 13-valent AdvReac Intermediate temp and Verified 01/26/25 19:42 conjugate to (From Prevnar body aches 13 (PF)) levofloxacin AdvReac Other (See Verified 01/26/25 19:42 Comment) Home Medications ?Medication ?Instructions ?Recorded ?Confirmed ?Type multivitamin 1 ea PO DAILY 11/05/12 01/26/25 History compress.stocking,knee,reg,lrg #1 ea 03/20/21 01/26/25 Rx calcium carb 1,200 mg-mag hydrox 10 ml PO PRN PRN 06/23/21 01/26/25 History 270 mg-simeth 80 mg/10 mL oral susp (Mylanta Coat-Cool) blood-glucose meter (Black Rhino GamesTouch #1 ea 07/24/21 01/26/25 Rx Verio Meter) lancing device with lancets kit #1 ea 07/24/21 01/26/25 Rx ([employer] Rhino GamesTouch Delica Plus Lancing Device kit) docusate sodium 100 mg capsule 100 mg PO BID #30 caps 05/26/22 01/26/25 Rx (Colace) ketoconazole 2 % topical cream 1 applic topical DAILY 3 months 02/23/23 01/26/25 Rx #60 grams albuterol sulfate 90 mcg/actuation 2 puff inhalation Q4H PRN PRN 05/13/23 01/26/25 Rx aerosol inhaler (ProAir HFA) shortness of breath or wheezing ##3 acetaminophen 500 mg tablet 1,000 mg (2 x 500 mg) PO TID pain 11/28/23 01/26/25 Rx #30 tabs polyethylene glycol 3350 17 gram 17 g PO DAILY PRN PRN Constipation 11/28/23 01/26/25 Rx oral powder packet #14 ea furosemide 20 mg tablet 20 mg PO BID edema #180 tabs 03/21/24 01/26/25 Rx cholecalciferol (vitamin D3) 125 125 mcg PO DAILY #90 caps 03/27/24 01/26/25 Rx mcg (5,000 unit) capsule metoprolol tartrate 25 mg tablet See Rx Instructions .Route 04/07/24 01/26/25 Rx .COMPLEX #90 tabs potassium chloride 20 mEq 20 meq PO DAILY #90 tabs 05/29/24 01/26/25 Rx tablet,extended release sucralfate 1 gram tablet 1 g PO BID PRN gastric pain #60 06/29/24 01/26/25 Rx tabs insulin glargine 100 unit/mL (3 See Rx Instructions .Route 07/18/24 01/26/25 Rx mL) subcutaneous pen (Lantus .COMPLEX #15 mL Solostar U-100 Insulin) blood sugar diagnostic (OneTouch #200 strips 07/30/24 01/26/25 Rx Verio test strips) lancets 33 gauge (OneTouch Delica #100 ea 07/30/24 01/26/25 Rx Plus Lancet) levothyroxine 75 mcg tablet 75 mcg PO DAILY #90 tabs 08/13/24 01/26/25 Rx pantoprazole 40 mg tablet,delayed 40 mg PO BID #180 tabs 09/04/24 01/26/25 Rx release pen needle, diabetic 31 gauge x #100 ea 10/11/24 01/26/25 Rx 3/16 apixaban 5 mg tablet (Eliquis) See Rx Instructions .Route 12/17/24 01/26/25 Rx .COMPLEX #180 tabs beclomethasone dipropionate 40 See Rx Instructions .Route 01/01/25 01/26/25 Rx mcg/actuation HFA breath activated .COMPLEX #10.6 grams aerosol (Qvar RediHaler) cyclobenzaprine 10 mg tablet 10 mg PO TID PRN muscle spasm #10 01/26/25 Rx tabs lidocaine 5 % topical patch 1 patch topical DAILY Back Pain 01/26/25 Rx #15 ea Exam Narrative Exam Narrative: HEENT-normocephalic atraumatic mucous membranes moist Neck-no lymphadenopathy no JVD no thyromegaly Cardiovascular-regular rate and rhythm no murmur rubs gallops Lungs-clear to auscultation bilaterally with good air exchange Abdomen-soft nontender nondistended Extremities-no sinus clubbing or edema Results Labs 01/26/25 20:05 01/26/25 20:05 Labs: Laboratory Results - last 24 hr 01/26/25 01/26/25 01/26/25 20:05 21:24 21:34 WBC 7.63 RBC 3.90 L Hgb 12.6 Hct 37.3 MCV 96 H MCH 32.3 MCHC 33.8 RDW 12.8 Plt Count 197 MPV 10.8 Immature Gran % 0.3 Neutrophils % 69.9 Lymphocytes % 18.5 Monocytes % 9.8 Eosinophils % 1.0 Basophils % 0.5 Nucleated RBC % 0.0 Absolute Neutrophils 5.33 Absolute Lymphocytes 1.41 Absolute Monocytes 0.75 Absolute Eosinophils 0.08 Absolute Basophils 0.04 Sodium 141 Potassium 3.6 Chloride 104 Carbon Dioxide 28.2 Anion Gap 8.8 BUN 14 Creatinine 0.7 Est GFR (CKD-EPI 2020) 84.17 Glucose 124 H Calcium 8.7 Magnesium 1.7 L Total Bilirubin 0.6 AST 18 ALT 18 Alkaline Phosphatase 57 Troponin I 8 8 Total Protein 6.7 Albumin 3.4 Lipase 15 Urine Color Yellow Urine Clarity Clear Urine pH 6.0 Ur Specific [place] 1.015 Urine Protein Negative Urine Ketones Negative Urine Blood Negative Urine Nitrite Negative Urine Bilirubin Negative Urine Urobilinogen 0.2 Ur Leukocyte Esterase Negative Urine Glucose Negative 01/26/25 22:48 WBC RBC Hgb Hct MCV MCH MCHC RDW Plt Count MPV Immature Gran % Neutrophils % Lymphocytes % Monocytes % Eosinophils % Basophils % Nucleated RBC % Absolute Neutrophils Absolute Lymphocytes Absolute Monocytes Absolute Eosinophils Absolute Basophils Sodium Potassium Chloride Carbon Dioxide Anion Gap BUN Creatinine Est GFR (CKD-EPI 2020) Glucose Calcium Magnesium Total Bilirubin AST ALT Alkaline Phosphatase Troponin I Cancelled Total Protein Albumin Lipase Urine Color Urine Clarity Urine pH Ur Specific [place] Urine Protein Urine Ketones Urine Blood Urine Nitrite Urine Bilirubin Urine Urobilinogen Ur Leukocyte Esterase Urine Glucose Last Vital Signs Temp 36.6 C 01/26/25 19:37 Pulse 76 01/26/25 21:30 Resp 11 L 01/26/25 21:30 BP 117/61 01/26/25 20:16 Pulse Ox 98 01/26/25 21:30 Time Spent Time spent with Patient: <40 minutes Time was spent: preparing to see the patient(eg.review tests), obtaining and/or reviewing separately otained hiistory, ordering medications,tests, procedures, referring, communicating with other health pet care assistant, indepentently interpreting results, counseling the patient and care coordination
--- NOTE | 2025-01-27 01:13 | W.PC.ACHO ---
Registration Status: REG ER Primary Language: Preferred Language: Setswana ED Information & Data Chief Complaint Nk/Back Pain 01/26/25 20:02 Triage Note severe and sudden back pain 01/26/25 19:37 when she woke up this am. burning with urination. irregular rhythm on monitor Medical / Surgical History (Last Reviewed 01/26/25 @ 20:01 by Suad Fall NP) Advanced care planning/counseling discussion Amiodarone pulmonary toxicity Arthritis of left knee Arthropathy of left knee Atrial tachycardia Atrioventricular block (07/07/12) Atrophic gastritis without mention of hemorrhage (07/07/12) Chronic eczematoid otitis externa of both ears (01/22/16) Controlled type 2 diabetes mellitus without complication, without long-term current use of insulin (03/26/16) Deformity of toenail Diabetes mellitus due to underlying condition, uncontrolled, with hyperglycemia Dysphagia, unspecified (07/07/12) Elevated serum free T4 level Endometrial cancer (07/19/16) Esophagitis determined by biopsy Essential hypertension (01/18/13) Exertional dyspnea (01/28/15) Failed fundoplication Family hx-breast malignancy (11/13/12) High risk medications (not anticoagulants) long-term use History of postmenopausal bleeding Hot flashes Hyperlipidemia (07/07/12) Iatrogenic hyperthyroidism Impaired glucose tolerance (03/10/12) Left knee pain Leg edema Leg weakness Lesion of face Lipedema of lower extremity Lymphedema Macular pucker Multinodular goiter (12/19/15) Muscle spasm of left shoulder area Neurogenic pain of right lower extremity (09/19/15) On deep vein thrombosis (DVT) prophylaxis Osteoarth NOS-unspec (07/06/11) Pacemaker (09/16/17) Palliative care encounter Pelvic pain (02/07/13) Piriformis syndrome of right side Postnasal drip (01/09/15) Primary osteoarthritis of right knee (01/10/17) Pyrosis Right lumbar radiculopathy Sensorineural hearing loss of both ears Sepsis Spinal stenosis of lumbar region Symptomatic bradycardia Trochanteric bursitis, right hip (05/19/16) Urge incontinence Vulvovaginal candidiasis (Last Reviewed 01/26/25 @ 20:01 by Suad Fall NP) Cardiac Cath, 2008 Cholecystectomy Colonoscopy - IV Sedation (03/17/16) EGD - MAC (06/29/17) Extraction of cataract Hernia, hiatal (banding) History of Surgical Procedure History of total knee arthroplasty (05/26/22) History of total left knee replacement (TKR) (05/26/22) Hyseterectomy, Total Laparoscopic w/ BSO (07/01/16) Pacemaker (12/04/13) Replacement of total knee joint (12/03/16) sentinal lymph node dissection (07/01/16) Status post right knee replacement upper GI Series (10/05/17) Most Recent Vital Signs Temperature 36.6 C 01/26/25 19:37 Pulse 68 01/27/25 00:46 Pulse 76 01/26/25 21:30 Respiratory Rate 16 01/27/25 00:46 Blood Pressure 142/50 H 01/27/25 00:30 Blood Pressure Mean 83 01/27/25 00:30 Pulse Oximetry 98 01/27/25 00:46 Pain Level 10 01/26/25 21:36 Allergies ranitidine Allergy (Severe, Verified 01/26/25 19:42) WHEEZING cefadroxil Allergy (Mild, Verified 01/26/25 19:42) Other (See Comment) pt. cant remember; HAS HAD CEFAZOLIN THE PAST WITH NO ISSUE empagliflozin (From Jardiance) Adverse Reaction (Severe, Verified 01/26/25 19:42) UTI metformin Adverse Reaction (Severe, Verified 01/26/25 19:42) Diarrhea ciprofloxacin Adverse Reaction (Intermediate, Verified 01/26/25 19:42) WEAKNESS pneumococcal 13-valent conjugate to (From Prevnar 13 (PF)) Adverse Reaction (Intermediate, Verified 01/26/25 19:42) temp and body aches levofloxacin Adverse Reaction (Verified 01/26/25 19:42) Other (See Comment) pt reported stiff tendons both ankles. IV IV Catheter Gauge [Left Hand] 20 Diet Orders Category Date Time Status Regular/Normal [DIET] Nutrition 01/27/25 Breakfast Active Diagnostics 01/27/25 01/26/25 01/26/25 Range/Units 05:35 22:48 21:34 WBC Pending (4.4-10.8) 10^3/uL RBC Pending (3.93-5.22) 10^6/uL Hgb Pending (11.2-15.7) g/dL Hct Pending (36.0-46.0) % MCV Pending (80-95) fL MCH Pending (27.0-33.0) pg MCHC Pending (32.0-36.0) % RDW Pending (11.7-14.6) % Plt Count Pending (130-400) 10^3/uL MPV Pending (8.0-11.0) fL Immature Gran % Pending % Neutrophils % Pending % Lymphocytes % Pending % Monocytes % Pending % Eosinophils % Pending % Basophils % Pending % Nucleated RBC % (0.0-0.3) % Absolute Neutrophils Pending (1.2-6.7) 10^3/uL Absolute Lymphocytes Pending (1.2-3.4) 10^3/uL Absolute Monocytes Pending (0.1-0.8) 10^3/uL Absolute Eosinophils Pending (0.0-0.7) 10^3/uL Absolute Basophils Pending (0.0-0.2) 10^3/uL Sodium Pending (136-145) mmol/L Potassium Pending (3.5-5.1) mmol/L Chloride Pending (98-107) mmol/L Carbon Dioxide Pending (21.0-32.0) mmol/L Anion Gap Pending (3-11) mmol/L BUN Pending (7-18) mg/dL Creatinine Pending (0.55-1.02) mg/dL Est GFR (CKD-EPI 2020) Pending (mL/min/1.73m2) Glucose Pending (74-106) mg/dL Calcium Pending (8.5-10.1) mg/dL Magnesium (1.8-2.4) mg/dL Total Bilirubin Pending (0.2-1.0) mg/dL AST Pending (15-37) U/L ALT Pending (14-59) U/L Alkaline Phosphatase Pending (46-116) U/L Troponin I Cancelled (<or=51) ng/L Total Protein Pending (6.4-8.2) g/dL Albumin Pending (3.4-5.0) g/dL Lipase (<78) U/L Urine Color Yellow (Yellow) Urine Clarity Clear (Clear) Urine pH 6.0 (5-8) Ur Specific [place] 1.015 (1.005-1.025) Urine Protein Negative (Neg-Trace) mg/dL Urine Ketones Negative (Negative) mg/dL Urine Blood Negative (Negative) Urine Nitrite Negative (Negative) Urine Bilirubin Negative (Negative) Urine Urobilinogen 0.2 (Up to 0.2) mg/dL Ur Leukocyte Esterase Negative (Negative) Urine Glucose Negative (Negative) mg/dL 01/26/25 01/26/25 Range/Units 21:24 20:05 WBC 7.63 (4.4-10.8) 10^3/uL RBC 3.90 L (3.93-5.22) 10^6/uL Hgb 12.6 (11.2-15.7) g/dL Hct 37.3 (36.0-46.0) % MCV 96 H (80-95) fL MCH 32.3 (27.0-33.0) pg MCHC 33.8 (32.0-36.0) % RDW 12.8 (11.7-14.6) % Plt Count 197 (130-400) 10^3/uL MPV 10.8 (8.0-11.0) fL Immature Gran % 0.3 % Neutrophils % 69.9 % Lymphocytes % 18.5 % Monocytes % 9.8 % Eosinophils % 1.0 % Basophils % 0.5 % Nucleated RBC % 0.0 (0.0-0.3) % Absolute Neutrophils 5.33 (1.2-6.7) 10^3/uL Absolute Lymphocytes 1.41 (1.2-3.4) 10^3/uL Absolute Monocytes 0.75 (0.1-0.8) 10^3/uL Absolute Eosinophils 0.08 (0.0-0.7) 10^3/uL Absolute Basophils 0.04 (0.0-0.2) 10^3/uL Sodium 141 (136-145) mmol/L Potassium 3.6 (3.5-5.1) mmol/L Chloride 104 (98-107) mmol/L Carbon Dioxide 28.2 (21.0-32.0) mmol/L Anion Gap 8.8 (3-11) mmol/L BUN 14 (7-18) mg/dL Creatinine 0.7 (0.55-1.02) mg/dL Est GFR (CKD-EPI 2020) 84.17 (mL/min/1.73m2) Glucose 124 H (74-106) mg/dL Calcium 8.7 (8.5-10.1) mg/dL Magnesium 1.7 L (1.8-2.4) mg/dL Total Bilirubin 0.6 (0.2-1.0) mg/dL AST 18 (15-37) U/L ALT 18 (14-59) U/L Alkaline Phosphatase 57 (46-116) U/L Troponin I 8 8 (<or=51) ng/L Total Protein 6.7 (6.4-8.2) g/dL Albumin 3.4 (3.4-5.0) g/dL Lipase 15 (<78) U/L Urine Color (Yellow) Urine Clarity (Clear) Urine pH (5-8) Ur Specific [place] (1.005-1.025) Urine Protein (Neg-Trace) mg/dL Urine Ketones (Negative) mg/dL Urine Blood (Negative) Urine Nitrite (Negative) Urine Bilirubin (Negative) Urine Urobilinogen (Up to 0.2) mg/dL Ur Leukocyte Esterase (Negative) Urine Glucose (Negative) mg/dL Intake and Output - 24 Hour Total 01/26/25 19:24 thru 01/26/25 21:36 Output Total 200 Balance -200 Weight 68.039 kg Output: Urine 200 Urinary Catheter Urinary Catheter Date of 01/26/25 Insertion [Straight] Time of insertion [Straight] 21:34 Falls Risk Assessment History of Falls No History 01/26/25 19:59 Contributing Factors No Factors 01/26/25 19:59 Ambulatory Aids Independent 01/26/25 19:59 Tubes/Lines None 01/26/25 19:59 Gait Evaluation No gait disturbance 01/26/25 19:59 Cognition No cognitive impairment 01/26/25 19:59 Fall Total Score 0 01/26/25 19:59 Level of Risk Standard/Low Risk 01/26/25 19:59 Problems (Last Reviewed 01/26/25 @ 20:01 by Suad Fall NP) Atrial fibrillation (Acute 07/06/11) Diastolic heart failure (Acute) DNR (do not resuscitate) (Acute) Elevated MCV (Acute) Low magnesium level (Acute) Type 2 diabetes mellitus (Chronic) Weakness (Acute) Notes 01/26/25 23:41 Nursing Notes by Tiki Mendenhall Nursing Note: Pt cleared for d/c home per EMPLOYEE DEVELOPMENT SPECIALIST Eufemia, provided pain controlled well enough to pass ambulation test. Pt attempted x2, and unable to stand up from stretcher both w/ assist from x2 personnel and w/ a walker and staff assist. Both weakness and pain a factor in inability to ambulate. MD Terry at bedside to assess. Pt live at home alone, and though she lives in a single story home, both her and her neighbor who is at bedside express hesitation at her being able to be safe at home w/ current pain and weakness Initialized on 01/26/25 23:41 - END OF NOTE v v v v v v v v v Sending and/or Receiving Nurses: Please use comment section below to note any information pertinent to the patient hand-off not included above. Information / Comments: Paged 00:43. Called for handoff 01:00. Pt arrived to ED this afternoon after waking with severe burning back pain and one episode of total urinary incontinence. Normally continent, lives independently. ED gave Lidoderm patch, 500 mg Tylenol, and 5 mg oxy, then 15 mg ketorolac and 2 mg valium around 22:00 before ambulation trial. Failed two ambulation tests with max assist. No findings on imaging; scoliosis and disc degeneration of L3 and L4 present before this visit. No findings with UA or serum labs, no troponin abnormalities. Was supposed to go home, but decision was made to keep her overnight for monitoring d/t ongoing pain and generalized weakness that precludes mobility. A&Ox4. In and out of Afib, conduction variable from SA and AV nodes. Resp: Sat 96-99% on RA. BP last 124/44. Straight cath'd in ED. 20 gauge IV in L hand. Report received from: JUAN MANUEL Nails RN
[2025-01-27] MEDS: Normal Saline Flush 10 ML SYR IVP ×2 (02:37→09:11)
[2025-01-27] MEDS: Levothyroxine 75 MCG TAB PO (06:15)
[2025-01-27 07:32] LABS: Abs Immature Grans 0.02 10^3/uL (0.0-0.06); HCT 37.3 % (36.0-46.0); HGB 12.5 g/dL (11.2-15.7); Immature Grans % 0.4 %; MCH 31.6 pg (27.0-33.0); MCHC 33.5 % (32.0-36.0); MCV 94 fL (80-95); MPV 10.8 fL (8.0-11.0); Platelet Count 188 10^3/uL (130-400); RBC 3.95 10^6/uL (3.93-5.22); RDW 12.6 % (11.7-14.6); RDW-SD 43.8 fL; WBC 4.91 10^3/uL (4.4-10.8)
[2025-01-27 07:52] LABS: ALT 17 U/L (14-59); AST 17 U/L (15-37); Albumin 3.2 g/dL (3.4-5.0); Alkaline Phosphatase 55 U/L (46-116); Anion Gap 7.6 mmol/L (3-11); BUN 10 mg/dL (7-18); Bilirubin, Total 0.9 mg/dL (0.2-1.0); CO2 31.4 mmol/L (21.0-32.0); Calcium 8.7 mg/dL (8.5-10.1); Chloride 104 mmol/L (98-107); Estimated GFR 87.36 (mL/min/1.73m2); Glucose 93 mg/dL (74-106); Potassium 3.5 mmol/L (3.5-5.1); Sodium 143 mmol/L (136-145); Total Protein 6.7 g/dL (6.4-8.2)
--- NOTE | 2025-01-27 08:00 | PDOC.CMIN ---
Date of service: 01/27/25 Time of Service: 08:00 Care Management Initial Assmt Initial Assessment Reason for Hospitalization: back pain Functional Status/Living Situation Patient Presentation: Elaina was sitting up in a chair when CM met with her. She was alert and oriented and readily engaged in conversation. Elaina lives alone in an apartment in [place]. She retired after working at [employer] for over 30 years. She does not have any children but has many good neighbors who are helpful and supportive. Elaina has a cane and a walker but mostly uses the cane. She is independent with ADLs and does not receive any community services. She does have a Life line. Town of Residence: [place] Resides with: Alone Employment Status: Retired Instrumental Activities of Daily Living (ADLs): Independent Medications Medication Management: No Issues/Barriers identified Physical Functioning/Mobility Assistive Device: walker Advance Directives Advance Directives: Do you have an Advance Directive: AD On File at [facility]: N 12/03/23, 18:44 Date Asked 01/26/25 01/26/25, 19:29 AD Date Reviewed COLST On File at [facility] COLST Date Scanned Code Status Resuscitation Status DNR/DNI Portal Pt does not currently have a portal and education provided: Yes Insurance Coverage/Financial Issues Insurance: Medicare [facility] Care Team Visit Care Team Role Provider Type Joe Collier MD MD [facility] STAFF PHYSICIAN Vicenta Freed DO Primary Care Provider OSTEOPATHIC DOCTOR Eliot Lopez Other Providers OTHER Jennifer Terry MD Emergency Provider [facility] STAFF PHYSICIAN Jonah Jiménez MD Admit Provider [facility] STAFF PHYSICIAN Attending Provider Discharge Potential Discharge Needs: PCP F/U Appt Anticipated Barriers to Discharge: None Identified Patient/Family Education Needs: Review discharge instructions, discuss Ask Me Three Transportation: Private vehicle Plan: Anticipate Elaina will be discharged home with new home health services for RN, OT, PT and FLOOR LAYER TILE, when medically stable. She will follow up with her PCP and plan of care and transport with family. CM will follow and continue to assess for discharge needs. Social Determinants of Health Screening Social Determinants of health last assessed in clinic: 01/27/25 Will the Patient Participate in the Screening?: Yes Do you worry about having a steady place to live?: no Problems where you live: no known problems In the past 12 months, have you had to go without electric, gas, oil or water in your home?: no 1. Within the past 12 months, we worried whether our food would run out before we got money to buy more.: Never true 2. Within the past 12 months, the food we bought just didn't last and we didn't have money to get more.: Never true Has lack of transportation kept you from medical appointments or from doing things needed for daily living?: no Has anyone in your life made you feel unsafe or unsupported?: no How hard is it for you to pay for the very basics like food, housing, medical care, and heating? Would you say it is:: Not hard at all Do you want help finding or keeping work or a job?: I do not need or want help If for any reason you need help with day-to-day activities such as bathing, preparing meals, shopping, managing finances, etc., do you get the help you need?: I don?t need any help How often do you feel lonely or isolated from those around you?: Rarely Do you speak a language other than Danish at home?: No Does the patient want assistance with any of the above?: No Health Related Social Needs Health related social needs: feeling lonely/isolated (Z60.8) Health related social needs details: Pt declines help at this time PFSH All Active Problems (Updated 01/27/25 @ 00:30 by Jonah Jiménez MD) Elevated MCV (Acute) Low magnesium level (Acute) Weakness (Acute) Back pain (Acute) Bulging of lumbar intervertebral disc (Acute) Long toenail (Acute) Vitamin D deficiency (Acute) DNR (do not resuscitate) (Acute) DNR/DNI, _transfer, +treat, +IV and abx. See 02/02/2024 COLST Fracture of left distal radius (Acute 11/25/23) ID after a few weeks.. splint/sling only and it seems to have healed Malnutrition compromising bodily function (Acute) Fracture of proximal end of left humerus (Acute ~11/25/23) Due to fall (looking over car issue), admitted to [facility], electrolyte abn; Home PT/OT requested History of uterine cancer (Acute) Counseling regarding end of life decision making (Acute) Pt told HH no CPR Phlegm in throat (Acute) sensation in throat then brings it up (vs reflux or vomit) Hypovitaminosis D (Acute) Thyroid nodule (Acute 01/28/15) 01/01/15 US 4mm nodule isthmus 05/15/15 US 4.5 nodule isthmus, ?7x5 nodule right Hypothyroidism (Chronic 01/02/13) States her muscles are getting sore, Especially in L arm, and also bone pain (pt read insert from pharmacy) States her knees are bothering as in, weakness and pain, as well, fluid is building up. PAD (peripheral artery disease) (Acute) Right - asymptomatic. Pt declines referral to [facility] vascular at this time. 06/2023. EO Asthma (Chronic 01/18/13) [employer] [facility] Rx per insurance, 05/2023, ik .. possible asthma; PFTs normal 04/27/2012.07/2013 Low serum albumin (Acute) Diastolic heart failure (Acute) Ingrown toenail (Acute) Onychomycosis (Acute) PVD (peripheral vascular disease) (Chronic) Venous insufficiency (Acute) Sacroiliac joint dysfunction of right side (Acute) Hiatal hernia (Chronic) 01/25/23 5cm ([facility]) Nail dystrophy (Acute) SOB (shortness of breath) (Acute) Cont post hospitalization despite ABx/Recovery from PNA Insulin dose changed (Acute) Atrial fibrillation (Acute 07/06/11) normal echo and cath 2008; flecanide Rx; apixiban; echo 09/2013 EF 60%.. Type 2 diabetes mellitus (Chronic) A1C jump 2' limited ambulation & steroid use. [ ] Insulin due to intolerance of PO Rx, ik, 03/2022.. Recent A1C increase, from pre-diabetes to DM this past year.. Edema (Acute) LE edema , R>L .. notable, possibly 2' Jardiance intolerance, but possible lymphedema (?). Hx pelvic radioation 2016 for endometrial CA. Medication intolerance (Acute) Unable to tolerate Jardiance (candidiasis!), Metformin. Gastroesophageal reflux disease (Acute 07/07/12) Managed with PPI for years, worsening x 2-3 months. Now associated with LUQ tenderness, 05/26/17. []H.pylori [] U/S LUQ ik IMPROVED with weight loss, 06/02.19, ik EGD rescheduled with Dr. Escobar (2' Margaret not yet taking appts @ [facility]), 05/26/17 .. Consulted, EGD sched for 06/29/17. note: s/p Singh, hernia repair, and esoph dilation (2013) 10/29/21 GI visit with f/u in 6w History of hiatal hernia (Acute) Reactive airway disease (Chronic) Medical History Palliative care encounter Advanced care planning/counseling discussion Amiodarone pulmonary toxicity On deep vein thrombosis (DVT) prophylaxis Diabetes mellitus due to underlying condition, uncontrolled, with hyperglycemia A1C rise due to inactivity 2' back/knee pain & steroid use.. winter 2021 Dysphagia, unspecified (07/07/12) EGD KD: mild esophagitis 10/[address] Ragsdale 09/23/[address] Duncan, [facility], [place], [place]. Impression: Gerd Dysphagia. Rule out secondary to esophageal ulcer,dysmotility, or from perhaps a failing Singh. recommeded: Upper GI Gerd protocaol discussed w/ pt. panel 2,B12 If pt continues sx, may want to repeat upper endoscopy. Plans to see her back in follwup. Atrophic gastritis without mention of hemorrhage (07/07/12) Iatrogenic hyperthyroidism Levothyroxine stopped, rechecked 08/14 (1 month later than planned) with very high TSH, so re-starting Rx Elevated serum free T4 level Cardiology STOPPED levothyroxine, 05/2023..high TSH, High T4, 03/2022 ... Hx low TSH and high T4 (08/2021) Sepsis ICU during [facility] Hospitalization (pneumonia with quick onset/worsening!) Lipedema of lower extremity nodular, symm, tender inner upper calves Atrial tachycardia per Cardiology, [facility] .. Admitted post xfer from [facility] ED (08/08/21). EF 50%. Amiodarone started; Flecainide stopped. Amiodarone stopped 2022 concern for pulm tox Pacemaker (09/16/17) Sees DARNELL Tejada ([facility]). Dual lead Medtronic pacemaker Adapta .. Placed 2013, Dr. Edin Robles. 99Medtronic dual lead pacemaker implanted 12/04/2013 .. Adapta ADDRO1 [id number] .. RA Medtronic [id number], 11/2013.. RV [id number] 12/04/2013)) Atrioventricular block (07/07/12) pacemaker placement 12/04/2013; 5 sec asystoles last interrogation, 03/2017. Lymphedema nonpitting edema -- seems lymphedema -- appreciate pt eval Arthropathy of left knee Arthritis of left knee s/p L TKA 05/26/22 Failed fundoplication Pyrosis Lesion of face or BCCA left lateral canthus 09/14/[address] Dillon 09/22/21 sutures removed Left knee pain DEPO MEDROL 01/14/22 [address] [facility] (during hosp stay for atrial tach), NEG.. referred to local ortho ([facility]). Vulvovaginal candidiasis 2' Jardiance .. trial monostat or diflucan . STOP Jardiance if janae returns. Esophagitis determined by biopsy Macular pucker Leg edema Leg weakness With standing .. Hx lumbar stenosis .. Hx spinal injection (?) Muscle spasm of left shoulder area Trapezius MM Spasm .. Deformity of toenail Right lumbar radiculopathy Spinal stenosis of lumbar region High risk medications (not anticoagulants) long-term use Flecainide - started by Dr. Douglass Hot flashes Hot Flashes x 6 mos, 06/13/19. Piriformis syndrome of right side Pelvic pain (02/07/13) Trochanteric bursitis, right hip (05/19/16) Primary osteoarthritis of right knee (01/10/17) s/p RT TKR Fall 2017 Postnasal drip (01/09/15) Osteoarth NOS-unspec (07/06/11) Neurogenic pain of right lower extremity (09/19/15) Multinodular goiter (12/19/15) Impaired glucose tolerance (03/10/12) Hyperlipidemia (07/07/12) Family hx-breast malignancy (11/13/12) SISTER IN 60s Exertional dyspnea (01/28/15) Essential hypertension (01/18/13) FRS 13% .. 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 [facility] q6m x1 year, then annually. --[facility] 06/2016 Shakira Diaz MD Post-radiation association with new abd pain (?), ik, 05/26/17 Controlled type 2 diabetes mellitus without complication, without long-term current use of insulin (03/26/16) POOR CTL, 01/2021 (A1C 7.6) .. A1C goal 7.5 ... 7.1 today, 08/07/20. 6.8/6.9 in 11/2016. A1C 6.5 post weight loss and focused effort on reducing carbs/sweets. 06/02/18, ik A1C remains @ 6.5 08/2018, good job! Chronic eczematoid otitis externa of both ears (01/22/16) Dr Jeffrey Cardenas Sensorineural hearing loss of both ears Urge incontinence urgency/frequency History of postmenopausal bleeding Symptomatic bradycardia Surgical History History of total left knee replacement (TKR) (05/26/22) History of total knee arthroplasty (05/26/22) Status post right knee replacement Dr. Del Cid, Ortho. She is happy with knee, able to step down from sidewalk w/o fear per 03/02/18 appt discussion. COntinues to do well; seeing ortho for possible neuropathic pain (outer rt calf). upper GI Series (10/05/17) for sx of epigastric dysphagia,GERD. Done by Dr. Duncan. Impression: Moderate sized Hiatal Hernia. Marked gastroesophageal reflux. sentinal lymph node dissection (07/01/16) NEG for mets from endometrium Replacement of total knee joint (12/03/16) R knee Dr Del Cid Pacemaker (12/04/13) Hyseterectomy, Total Laparoscopic w/ BSO (07/01/16) +Endometrial cancer Hernia, hiatal (banding) EGD - MAC (06/29/17) Colonoscopy - IV Sedation (03/17/16) Cholecystectomy Extraction of cataract B/L Cardiac Cath, 2008 History of Surgical Procedure a. Cholecystectomy. b. Bilateral cataract surgery. c. Hiatal hernia repair 2008. d. Esophagus stretching 2013 - Dr. Ragsdale. e. Pacemaker 12/04/2013 Family History Mother , old age at age 98. No problems noted. Father , Heart disease at age 64. Heart disease [place] Sister , Colon Ca Personal history of malignant neoplasm Sister , Heart problems at age 72. Personal history of malignant neoplasm Breast cancer, dx'ed in her 60s Heart disease Sister Hypertensive disorder, systemic arterial Diabetes Sister Diabetes Sister Hypertensive disorder, systemic arterial Brother , Parkinson's at age 75. Personal history of malignant neoplasm Brother Parkinson's disease Brother , Heart condition at age 62. Hypertensive disorder, systemic arterial Diabetes Brother Hypertensive disorder, systemic arterial Diabetes Social History Smoking/Tobacco Use Status: Never Smoking risk assessment performed?: Yes Alcohol Intake: never Drug use: Never Substance use type: does not use Adopted: No Foster care: No Housing: apartment Number of Children: 0 number of grandchildren: 0 Communication Needs: Corrective Lenses current occupation: retired from [employer] Pets and animals: No Current gender identity: female What is your relationship status?: Panel score (0-1 are the most socially isolated patients): 0 Seatbelt use: always Working smoke detector in home: Yes Fire extinguisher in home: Yes Carbon monox detector in home: Yes Firearms in home: No Do you feel safe at home: Yes Do you feel safe in your relationship?: Yes
[2025-01-27] MEDS: Magnesium Oxide 400 MG TAB PO (09:10)
[2025-01-27] MEDS: Cholecalciferol (Vitamin D3) 1,000 UNIT TAB 1000 UNITS PO (09:10)
[2025-01-27] MEDS: Metoprolol 12.5 MG TAB PO (09:10)
[2025-01-27] MEDS: Docusate Sodium 100 MG CAP PO (09:10)
[2025-01-27] MEDS: Acetaminophen 500 MG TAB 1000 MG PO (09:10)
[2025-01-27] MEDS: Insulin Glargine 300 UNITS/3 ML PEN 10 UNITS SC (09:10)
[2025-01-27] MEDS: Furosemide 20 MG TAB PO (09:10)
[2025-01-27] MEDS: Apixaban 5 MG TAB PO (09:10)
[2025-01-27] MEDS: Potassium Chloride 20 MEQ TABCR PO (09:10)
--- NOTE | 2025-01-27 10:32 | NUR.NOTE ---
Accessed Pt chart to locate Primary Care Provider. This was documented on a Referral Request and faxed to Primary Care Providers Office
--- NOTE | 2025-01-27 10:45 | PT.INIE ---
PT Notes Visit Reasons: back pain Inpatient Physical Therapy Evaluation Date: 01/27/25 Referring Doctor: Dr. Jiménez Precautions: Back pain Patient Profile/Admitting Diagnosis: Back pain PMHX: Elevated MCV (Acute) Low magnesium level (Acute) Weakness (Acute) Back pain (Acute) Bulging of lumbar intervertebral disc (Acute) Long toenail (Acute) Vitamin D deficiency (Acute) DNR (do not resuscitate) (Acute) Fracture of proximal end of left humerus (Acute ~11/25/23) History of uterine cancer (Acute) Thyroid nodule (Acute 01/28/15) Hypothyroidism (Chronic 01/02/13) Low serum albumin (Acute) Diastolic heart failure (Acute) Ingrown toenail (Acute) Onychomycosis (Acute) PVD (peripheral vascular disease) (Chronic) Venous insufficiency (Acute) Sacroiliac joint dysfunction of right side (Acute) Atrial fibrillation (Acute 07/06/11) Type 2 diabetes mellitus (Chronic) History of hiatal hernia (Acute) Reactive airway disease (Chronic) Social History/Home Situation: Lives alone in an apartment, no stairs to enter and has a ramp, has friends that can assist her Current Functional Limitations: Does everything independently including driving Equipment Owned/DME: uses a cane primarily but also has a walker Subjective: Pt states she was unable to get up out of her chair yesterday due to back pain so she called EMS. She then again was unable to get up while in the ED so she was admitted. Today, she is feeling a lot better and is able to move although she still has pain. Objective: General Observation: resting in chair, pleasant and willing to participate in PT Mental Status: A+Ox4 Pain: back pain along the left side of her lumbar spine Vital Signs: monitored by nursing ROM: WFL throughout her bilat LEs and UEs Strength: Grossly 4/5 strength throughout bilat LEs w/MMTs Sensation: full and equal bilateally Bed Mobility/Transfers: sit to stand w/SBA stand to sit w/SBA bed to chair w/SBA chair to bed w/SBA Gait: Ambulates 150 ft w/RW and SBA Balance: Static Sitting: Good Dynamic Sitting: Good Static Standing: Fair Dynamic Standing: Fair Special Tests: Mobility Limitations Standardized Measure [facility] 6 clicks Basic Mobility Inpatient Short Form: Raw Score: 18 CMS Score: 46.58% Informed Consent/Education: Patient instructed in purpose of PT consult and plan of care. Assessment: Pt currently dealing with left sided low back pain that is limiting her mobility. She is showing improvements compared to yesterday and is safe to go home when medically cleared. She is able to stand up by herself and ambulate with a RW. She was encouraged to use the RW when going home to take pressure off of her low back and make her more mobile. She will not have to manage any stairs when going home. It is recommended that she go to outpatient PT when d/c'd to find different strategies to manage her back pain. She agrees to this. She no longer requires any additional in-hospital PT services. Patient is assessed as a [x] Low [id number] complexity based on the following: History: Low Examination: Low Presentation: Low Decision Making: Low Goals: N/A - d/c'ing to home Plan of Care/Treatment Plan: 1-2x/day, 7 days/week x 1 week. Plan of care has been reviewed with the OPTICAL MANUFACTURING TECHNICIAN providing the service under Physical Therapy direction. Initiate Physical Therapy intervention for strengthening, bed mobility, transfers, gait, stairs, balance training, use of assistive device. DISCHARGE RECOMMENDATIONS: Home with outpatient PT to help manage her back pain [x] Home with outpatient PT TREATMENT CODE/TIME: Garfield Lopez ([id number]) x1 - 25 min
--- NOTE | 2025-01-27 11:05 | DSE_ITS ---
Date of service: 01/27/25 Time of Service: 16:26 DS: Diagnosis Discharge Diagnosis (1) Weakness: Status: Acute (2) Atrial fibrillation: Status: Acute (3) Diastolic heart failure: Status: Acute (4) DNR (do not resuscitate): Status: Acute (5) Type 2 diabetes mellitus: Status: Chronic (6) Low magnesium level: Status: Acute (7) Elevated MCV: Status: Acute Discharge Plan Disposition Patient Disposition: Home W/Home Health Services Condition: Good Discharge Details Reason For Visit: back pain Admit Date/Time: 01/27/25 00:23 Admit Provider: Jonah Jiménez Attending Provider: Jonah Jiménez Primary Care Provider: [facility] Hospital Course: Patient presented to the hospital for concerns of back pain and weakness she was unable to ambulate in the emergency department. However, overnight patient's symptoms significantly improved and she was able to work with physical therapy and ambulate back to her baseline. PT did recommend home health physical therapy. Given that the patient had improvement and is able to ambulate it was determined that she was stable for discharge home. Home Meds and New Rx's Prescriptions: New cyclobenzaprine 10 mg tablet 10 mg PO TID PRN (Reason: muscle spasm) Qty: 10 0RF lidocaine 5 % adhesive patch,medicated 1 patch topical DAILY Qty: 15 0RF Rx Instructions: leave on most painful area for up to 12 hrs Continued Mylanta Coat-Cool 1,200 mg-270 mg -80 mg/10 mL suspension 10 ml PO PRN PRN potassium chloride 20 mEq tablet extended release 20 meq PO DAILY Qty: 90 3RF ketoconazole 2 % cream 1 applic topical DAILY 90 Days Qty: 60 3RF Rx Instructions: Apply to toenails once daily albuterol sulfate [ProAir HFA] 90 mcg/actuation HFA aerosol inhaler 2 puff Inhalation Q4H PRN PRN (Reason: shortness of breath or wheezing) Qty: 3 1RF cholecalciferol (vitamin D3) 125 mcg (5,000 unit) capsule 125 mcg PO DAILY Qty: 90 2RF Rx Instructions: Start Vitamin D supplement (bone health) over the winter furosemide 20 mg tablet 20 mg PO BID MDD 40mg Qty: 180 3RF Rx Instructions: Re-start @ 2/day metoprolol tartrate 25 mg tablet See Rx Instructions .ROUTE .COMPLEX Qty: 90 3RF Dose Instruction: TAKE 1/2 TABLET BY MOUTH TWICE DAILY Rx Instructions: TAKE 1/2 TABLET BY MOUTH TWICE DAILY sucralfate 1 gram tablet 1 g PO BID PRN (Reason: gastric pain) Qty: 60 2RF Rx Instructions: Mash (with water) into a slurry insulin glargine [Lantus Solostar U-100 Insulin] 100 unit/mL (3 mL) insulin pen See Rx Instructions .ROUTE .COMPLEX Qty: 15 1RF Dose Instruction: INJECT 10 UNITS (0.1ML) SUBCUTANEOUSLY DAILY FOR MANAGEMENT OF DIABETES WITH A1C LESS THAN 7.5 (START AT 10 UNITS AND INCREASE DIRECTED PER CDE/PCP DIRECTION) Rx Instructions: INJECT 10 UNITS (0.1ML) SUBCUTANEOUSLY DAILY FOR MANAGEMENT OF DIABETES WITH A1C LESS THAN 7.5 (START AT 10 UNITS AND INCREASE DIRECTED PER CDE/PCP DIRECTION) levothyroxine 75 mcg tablet 75 mcg PO DAILY Qty: 90 1RF Rx Instructions: estimated goal, ~ September 24, 2023, ik pantoprazole 40 mg tablet,delayed release (DR/EC) 40 mg PO BID Qty: 180 3RF Eliquis 5 mg tablet See Rx Instructions .ROUTE .COMPLEX Qty: 180 3RF Dose Instruction: TAKE 1 TABLET BY MOUTH TWICE DAILY Rx Instructions: TAKE 1 TABLET BY MOUTH TWICE DAILY Qvar RediHaler 40 mcg/actuation HFA aerosol breath activated See Rx Instructions .ROUTE .COMPLEX Qty: 10.6 1RF Dose Instruction: INHALE TWO PUFFS BY MOUTH TWICE A DAY Rx Instructions: INHALE TWO PUFFS BY MOUTH TWICE A DAY multivitamin 1 EACH capsule 1 ea PO DAILY docusate sodium [Colace] 100 mg capsule 100 mg PO BID Qty: 30 0RF Patient Comments: patient no longer taking polyethylene glycol 3350 17 gram Powder In Packet 17 g PO DAILY PRN PRN (Reason: Constipation) Qty: 14 0RF acetaminophen 500 mg tablet 1,000 mg PO TID Qty: 30 0RF Rx Instructions: Take two tablets up to every 8 hours as needed for pain No Action (DME) compress.stocking,knee,reg,lrg Misc See Rx Instructions .ROUTE .MEDSUPPLY Qty: 1 0RF Rx Instructions: As directed, 20mmHg-30mmHg (pt unable to tolerate higher pressure) (DME) lancing device with lancets [OneTouch Delica Plus Lanc Dev] Kit See Rx Instructions .ROUTE .MEDSUPPLY Qty: 1 0RF Rx Instructions: Monitor BS 2-3x/wk; E11.9, to achieve A1C under 7%, T 2 DM (DME) blood-glucose meter [OneTouch Verio Meter] Misc See Rx Instructions .ROUTE .MEDSUPPLY Qty: 1 0RF Rx Instructions: Monitor BS 2-3x/wk; E11.9, to achieve A1C under 7%, T 2 DM (DME) OneTouch Verio test strips Strip See Rx Instructions .ROUTE .COMPLEX Qty: 200 3RF Dose Instruction: USE TO MONITOR BLOOD SUGARS TWO TIMES A DAY Rx Instructions: USE TO MONITOR BLOOD SUGARS TWO TIMES A DAY (DME) lancets [OneTouch Delica Plus Lancet] 33 gauge misc See Rx Instructions .ROUTE .COMPLEX Qty: 100 3RF Dose Instruction: TEST TWICE DAILY DIRECTED Rx Instructions: Check Blood sugars three times a day. DX: E11.9 DM Type II. Keep A1c below 7 (DME) pen needle, diabetic 31 gauge x 3/16 needle See Rx Instructions .ROUTE .COMPLEX Qty: 100 3RF Dose Instruction: TEST ONCE DAILY Rx Instructions: TEST ONCE DAILY Discharge Instructions Instructions: Low Back Pain ED, Degenerative Disc Disease ED Additional Instructions: At this time CT shows degenerative disc disease in your lumbar spine, you do have some dextroscoliosis which is affecting L3 and L4 which I do believe is contributing to your back pain. No evidence of urinary tract infection Please use the lidocaine patches daily as prescribed. Take the muscle relaxers as prescribed these may make you sleepy. Please take Tylenol or Ibuprofen with food every 4-6 hours as needed for pain and swelling. Please use the other pain medications as needed for moderate to severe pain. Follow up with primary care provider in 3-5 days. Return to ED sooner if any worsening loss of bowel or bladder control, weakness in your legs or concerns. Stand Alone Forms: Nursing Discharge Form Referrals: Vicenta Freed DO [Primary Care Provider, Medicine] - 5 days Referral Note: Please call your drs office to schedule a follow up appointment to be within the next 5 days Activity:: Activity as Tolerated Equipment/Supplies:: No Equipment Needed Diet:: As Tolerated Discharge Orders Discharge Orders: Discharge Order (Routine); Ordered 01/27/25 Ordered By: Joe Collier Discharge Data Discharge Date/Time-TO BE ENTERED AT DEPARTURE: 01/27/25 14:14 DS: Summary Time Spent with Patient providing and/or coordinating discharge services: Greater than 30 minutes Status at Discharge Functional status at discharge: independent ambulation Overall status at discharge: patient is back to baseline Mental Status: mental status grossly normal Speech and Movement: speech and movement normal Mood: congruent mood Affect: normal affect Quality:SDOH Health Related Social Needs: Health related social needs lonely/isolated Health related social needs details Pt declines help a t this time Health related social needs details: Pt declines help at this time Exam Narrative Exam Narrative: Well-appearing older female sitting up in the chair no acute distress, ANO x 4, heart regular rhythm, lungs good auscultation bilaterally, abdomen soft, nontender, nondistended Psych Mental Status: mental status grossly normal Speech and Movement: speech and movement normal Mood: congruent mood Affect: normal affect DS: Data Vitals/I&O Vitals and I&O: Vital Signs Temperature 97.2 F L 01/27/25 07:13 Temperature Source Temporal Artery Scan 01/27/25 07:13 Pulse 69 01/27/25 07:13 Pulse Rhythm Irregular 01/27/25 01:21 Pulse 76 01/26/25 21:30 Respiratory Rate 16 01/27/25 07:13 Respiratory Effort Normal, Non-Labored 01/27/25 01:21 Respiratory Depth Normal 01/27/25 01:21 Respiratory Pattern Normal 01/27/25 01:21 Blood Pressure 121/74 01/27/25 07:13 Blood Pressure Mean 89 01/27/25 07:13 Pulse Oximetry 95 01/27/25 07:13 Oxygen Delivery Method Room Air 01/27/25 07:13 Oxygen Flow Rate 0 01/27/25 07:13 Pain Level 0 01/27/25 07:13 Intake & Output 01/26/25 01/27/25 01/27/25 17:59 05:59 17:59 Intake Total Output Total 200 / 200 400 / 400 Balance -180 / -180 -400 / -400 Weight 161 lb 14.4 oz Intake: IV Output: Urine 200 / 200 400 / 400 Other: Urine Color Yellow Yellow Urine Appearance Clear Clear Urine Odor None Comment Pt voided small amount of urine to bedpan, too little to measure. Data Completed and Pending Labs on day of discharge: Labs from last 24 hours 01/27/25 01/26/25 01/26/25 06:45 22:48 21:34 WBC 4.91 RBC 3.95 Hgb 12.5 Hct 37.3 MCV 94 MCH 31.6 MCHC 33.5 RDW 12.6 Plt Count 188 MPV 10.8 Immature Gran % 0.4 Neutrophils % 54.9 Lymphocytes % 30.5 Monocytes % 11.0 Eosinophils % 2.6 Basophils % 0.6 Nucleated RBC % 0.0 Absolute Neutrophils 2.69 Absolute Lymphocytes 1.50 Absolute Monocytes 0.54 Absolute Eosinophils 0.13 Absolute Basophils 0.03 Sodium 143 Potassium 3.5 Chloride 104 Carbon Dioxide 31.4 Anion Gap 7.6 BUN 10 Creatinine 0.6 Est GFR (CKD-EPI 2020) 87.36 Glucose 93 Calcium 8.7 Magnesium Total Bilirubin 0.9 AST 17 ALT 17 Alkaline Phosphatase 55 Troponin I Cancelled Total Protein 6.7 Albumin 3.2 L Lipase Urine Color Yellow Urine Clarity Clear Urine pH 6.0 Ur Specific [place] 1.015 Urine Protein Negative Urine Ketones Negative Urine Blood Negative Urine Nitrite Negative Urine Bilirubin Negative Urine Urobilinogen 0.2 Ur Leukocyte Esterase Negative Urine Glucose Negative 01/26/25 01/26/25 21:24 20:05 WBC 7.63 RBC 3.90 L Hgb 12.6 Hct 37.3 MCV 96 H MCH 32.3 MCHC 33.8 RDW 12.8 Plt Count 197 MPV 10.8 Immature Gran % 0.3 Neutrophils % 69.9 Lymphocytes % 18.5 Monocytes % 9.8 Eosinophils % 1.0 Basophils % 0.5 Nucleated RBC % 0.0 Absolute Neutrophils 5.33 Absolute Lymphocytes 1.41 Absolute Monocytes 0.75 Absolute Eosinophils 0.08 Absolute Basophils 0.04 Sodium 141 Potassium 3.6 Chloride 104 Carbon Dioxide 28.2 Anion Gap 8.8 BUN 14 Creatinine 0.7 Est GFR (CKD-EPI 2020) 84.17 Glucose 124 H Calcium 8.7 Magnesium 1.7 L Total Bilirubin 0.6 AST 18 ALT 18 Alkaline Phosphatase 57 Troponin I 8 8 Total Protein 6.7 Albumin 3.4 Lipase 15 Urine Color Urine Clarity Urine pH Ur Specific [place] Urine Protein Urine Ketones Urine Blood Urine Nitrite Urine Bilirubin Urine Urobilinogen Ur Leukocyte Esterase Urine Glucose PFSH All Active Problems (Updated 01/27/25 @ 00:30 by Jonah Jiménez MD) Elevated MCV (Acute) Low magnesium level (Acute) Weakness (Acute) Back pain (Acute) Bulging of lumbar intervertebral disc (Acute) Long toenail (Acute) Vitamin D deficiency (Acute) DNR (do not resuscitate) (Acute) DNR/DNI, _transfer, +treat, +IV and abx. See 02/02/2024 COLST Fracture of left distal radius (Acute 11/25/23) ID after a few weeks.. splint/sling only and it seems to have healed Malnutrition compromising bodily function (Acute) Fracture of proximal end of left humerus (Acute ~11/25/23) Due to fall (looking over car issue), admitted to [facility], electrolyte abn; Home PT/OT requested History of uterine cancer (Acute) Counseling regarding end of life decision making (Acute) Pt told HH no CPR Phlegm in throat (Acute) sensation in throat then brings it up (vs reflux or vomit) Hypovitaminosis D (Acute) Thyroid nodule (Acute 01/28/15) 01/01/15 US 4mm nodule isthmus 05/15/15 US 4.5 nodule isthmus, ?7x5 nodule right Hypothyroidism (Chronic 01/02/13) States her muscles are getting sore, Especially in L arm, and also bone pain (pt read insert from pharmacy) States her knees are bothering as in, weakness and pain, as well, fluid is building up. PAD (peripheral artery disease) (Acute) Right - asymptomatic. Pt declines referral to [facility] vascular at this time. 06/2023. EO Asthma (Chronic 01/18/13) [employer] [facility] Rx per insurance, 05/2023, ik .. possible asthma; PFTs normal 04/27/2012.07/2013 Low serum albumin (Acute) Diastolic heart failure (Acute) Ingrown toenail (Acute) Onychomycosis (Acute) PVD (peripheral vascular disease) (Chronic) Venous insufficiency (Acute) Sacroiliac joint dysfunction of right side (Acute) Hiatal hernia (Chronic) 01/25/23 5cm ([facility]) Nail dystrophy (Acute) SOB (shortness of breath) (Acute) Cont post hospitalization despite ABx/Recovery from PNA Insulin dose changed (Acute) Atrial fibrillation (Acute 07/06/11) normal echo and cath 2008; flecanide Rx; apixiban; echo 09/2013 EF 60%.. Type 2 diabetes mellitus (Chronic) A1C jump 2' limited ambulation & steroid use. [ ] Insulin due to intolerance of PO Rx, ik, 03/2022.. Recent A1C increase, from pre-diabetes to DM this past year.. Edema (Acute) LE edema , R>L .. notable, possibly 2' Jardiance intolerance, but possible lymphedema (?). Hx pelvic radioation 2016 for endometrial CA. Medication intolerance (Acute) Unable to tolerate Jardiance (candidiasis!), Metformin. Gastroesophageal reflux disease (Acute 07/07/12) Managed with PPI for years, worsening x 2-3 months. Now associated with LUQ tenderness, 05/26/17. []H.pylori [] U/S LUQ ik IMPROVED with weight loss, 06/02.19, ik EGD rescheduled with Dr. Escobar (2' Margaret not yet taking appts @ [facility]), 05/26/17 .. Consulted, EGD sched for 06/29/17. note: s/p Singh, hernia repair, and esoph dilation (2013) 10/29/21 GI visit with f/u in 6w History of hiatal hernia (Acute) Reactive airway disease (Chronic) Medical History Palliative care encounter Advanced care planning/counseling discussion Amiodarone pulmonary toxicity On deep vein thrombosis (DVT) prophylaxis Diabetes mellitus due to underlying condition, uncontrolled, with hyperglycemia A1C rise due to inactivity 2' back/knee pain & steroid use.. winter 2021 Dysphagia, unspecified (07/07/12) EGD KD: mild esophagitis 10/[address] Ragsdale 09/23/[address] Duncan, [facility], [place], [place]. Impression: Gerd Dysphagia. Rule out secondary to esophageal ulcer,dysmotility, or from perhaps a failing Singh. recommeded: Upper GI Gerd protocaol discussed w/ pt. panel 2,B12 If pt continues sx, may want to repeat upper endoscopy. Plans to see her back in follwup. Atrophic gastritis without mention of hemorrhage (07/07/12) Iatrogenic hyperthyroidism Levothyroxine stopped, rechecked 08/14 (1 month later than planned) with very high TSH, so re-starting Rx Elevated serum free T4 level Cardiology STOPPED levothyroxine, 05/2023..high TSH, High T4, 03/2022 ... Hx low TSH and high T4 (08/2021) Sepsis ICU during [facility] Hospitalization (pneumonia with quick onset/worsening!) Lipedema of lower extremity nodular, symm, tender inner upper calves Atrial tachycardia per Cardiology, [facility] .. Admitted post xfer from [facility] ED (08/08/21). EF 50%. Amiodarone started; Flecainide stopped. Amiodarone stopped 2022 concern for pulm tox Pacemaker (09/16/17) Sees DARNELL Tejada ([facility]). Dual lead Medtronic pacemaker Adapta .. Placed 2013, Dr. Edin Robles. 99Medtronic dual lead pacemaker implanted 12/04/2013 .. Adapta [id number] [id number] .. RA Medtronic [id number], 11/2013.. RV [id number] 12/04/2013)) Atrioventricular block (07/07/12) pacemaker placement 12/04/2013; 5 sec asystoles last interrogation, 03/2017. Lymphedema nonpitting edema -- seems lymphedema -- appreciate pt eval Arthropathy of left knee Arthritis of left knee s/p L TKA 05/26/22 Failed fundoplication Pyrosis Lesion of face or BCCA left lateral canthus 09/14/[address] Dillon 09/22/21 sutures removed Left knee pain DEPO MEDROL 01/14/22 Arthrocentesis @ [facility] (during hosp stay for atrial tach), NEG.. referred to local ortho ([facility]). Vulvovaginal candidiasis 2' Jardiance .. trial monostat or diflucan . STOP Jardiance if janae returns. Esophagitis determined by biopsy Macular pucker Leg edema Leg weakness With standing .. Hx lumbar stenosis .. Hx spinal injection (?) Muscle spasm of left shoulder area Trapezius MM Spasm .. Deformity of toenail Right lumbar radiculopathy Spinal stenosis of lumbar region High risk medications (not anticoagulants) long-term use Flecainide - started by Dr. Douglass Hot flashes Hot Flashes x 6 mos, 2/19/20. Piriformis syndrome of right side Pelvic pain (02/07/13) Trochanteric bursitis, right hip (05/19/16) Primary osteoarthritis of right knee (01/10/17) s/p RT TKR Fall 2017 Postnasal drip (01/09/15) Osteoarth NOS-unspec (07/06/11) Neurogenic pain of right lower extremity (09/19/15) Multinodular goiter (12/19/15) Impaired glucose tolerance (03/10/12) Hyperlipidemia (07/07/12) Family hx-breast malignancy (11/13/12) SISTER IN 60s Exertional dyspnea (01/28/15) Essential hypertension (01/18/13) FRS 13% .. 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 [facility] q6m x1 year, then annually. --[facility] 06/2016 Shakira Diaz MD Post-radiation association with new abd pain (?), michelle, 05/26/17 Controlled type 2 diabetes mellitus without complication, without long-term current use of insulin (03/26/16) POOR CTL, 01/2021 (A1C 7.6) .. A1C goal 7.5 ... 7.1 today, 08/07/20. 6.8/6.9 in 11/2016. A1C 6.5 post weight loss and focused effort on reducing carbs/sweets. 06/02/18, michelle A1C remains @ 6.5 08/2018, good job! Chronic eczematoid otitis externa of both ears (01/22/16) Dr Jeffrey Cardenas Sensorineural hearing loss of both ears Urge incontinence urgency/frequency History of postmenopausal bleeding Symptomatic bradycardia Surgical History History of total left knee replacement (TKR) (05/26/22) History of total knee arthroplasty (05/26/22) Status post right knee replacement Dr. Del Cid, Ortho. She is happy with knee, able to step down from sidewalk w/o fear per 03/02/18 appt discussion. COntinues to do well; seeing ortho for possible neuropathic pain (outer rt calf). upper GI Series (10/05/17) for sx of epigastric dysphagia,GERD. Done by Dr. Duncan. Impression: Moderate sized Hiatal Hernia. Marked gastroesophageal reflux. sentinal lymph node dissection (07/01/16) NEG for mets from endometrium Replacement of total knee joint (12/03/16) R knee Dr Del Cid Pacemaker (12/04/13) Hyseterectomy, Total Laparoscopic w/ BSO (07/01/16) +Endometrial cancer Hernia, hiatal (banding) EGD - MAC (06/29/17) Colonoscopy - IV Sedation (03/17/16) Cholecystectomy Extraction of cataract B/L Cardiac Cath, 2008 History of Surgical Procedure a. Cholecystectomy. b. Bilateral cataract surgery. c. Hiatal hernia repair 2008. d. Esophagus stretching 2013 - Dr. Ragsdale. e. Pacemaker 12/04/2013 Family History Mother , old age at age 98. No problems noted. Father , Heart disease at age 64. Heart disease [place] Sister , Colon [place] Personal history of malignant neoplasm Sister , Heart problems at age 72. Personal history of malignant neoplasm Breast cancer, dx'ed in her 60s Heart disease Sister Hypertensive disorder, systemic arterial Diabetes Sister Diabetes Sister Hypertensive disorder, systemic arterial Brother , Parkinson's at age 75. Personal history of malignant neoplasm Brother Parkinson's disease Brother , Heart condition at age 62. Hypertensive disorder, systemic arterial Diabetes Brother Hypertensive disorder, systemic arterial Diabetes Social History Smoking/Tobacco Use Status: Never Smoking risk assessment performed?: Yes Alcohol Intake: never Drug use: Never Substance use type: does not use Adopted: No Foster care: No Housing: apartment Number of Children: 0 number of grandchildren: 0 Communication Needs: Corrective Lenses current occupation: retired from [employer] Pets and animals: No Current gender identity: female What is your relationship status?: Panel score (0-1 are the most socially isolated patients): 0 Seatbelt use: always Working smoke detector in home: Yes Fire extinguisher in home: Yes Carbon monox detector in home: Yes Firearms in home: No Do you feel safe at home: Yes Do you feel safe in your relationship?: Yes Time Spent with Patient Time Spent with Patient: <45 minutes Time was spent: preparing to see the patient(eg.review tests), obtaining and/or reviewing separately otained hiistory, ordering medications,tests, procedures, referring, communicating with other health health care facility administrator, indepentently interpreting results, counseling the patient and care coordination
--- NOTE | 2025-01-27 11:06 | PDOC.HHF2F ---
Date of service: 01/27/25 Time of Service: 11:06 Home Health Referral Home Health Orders Clinical synopsis of why skilled professionals are needed: A-fib, heart failure, low back pain Registered Nurse: Check all that apply Instruct on new or changed medication(s)/assess compliance: Ordered Assess for exacerbation of medical condition, instruct patient/caregivers on signs and symptoms to report for early detection: Ordered (worsening of pain despite med compliance ) Physical Therapist: Check all that apply Increase strength & endurance for safe mobility at home: Ordered To design/establish home maintenance program: Ordered Fall reduction therapy program for patient with history of frequent falls: Ordered Home safety evaluation and teaching/gait training including stair management (if applicable): Ordered Occupational Therapist: Evaluate and treat for patient unable to perform ADL/IADL/self-care: Ordered Christmas Bell Ringer: Assist with community resources: Ordered Assist with long lines operator care planning: Ordered Home Bound Status Requires the aid of supportive device (check all that apply): Cane Encounter Date and Reason: I certify that a FTF encounter for this patient was performed on January 27, 2025 and that such encounter was related to the primary reason the patient requires home health services. The encounter was conducted in the following manner: By me as the certifying physician, TELECOMMUNICATION TOWER TECHNICIAN, PA or By an inpatient physician, TELECOMMUNICATION TOWER TECHNICIAN or PA during an inpatient stay who communicated findings to me, Certification And Authentication I certify that I composed the above information based on my clinical judgment relating to this patient's medical condition and, if applicable, clinical findings communicated to me by the NPP or inpatient physician who performed the FTF encounter. Name of Provider that will be monitoring home health services: Vicenta Freed
== END 2025-01-27 14:14 | disposition home health service (06) ==
LOC: ER 01-27 00:49 → MS 01-27 01:20
PROVIDERS: Registered Nurse Emergency; Admitting Provider Hospitalist; Emergency Provider Student in an Organized Health Care Education/Training Program; PCP Student in an Organized Health Care Education/Training Program; Responsible Provider Family Medicine; Visit Provider Hospitalist
DX: M51.360 Other intervertebral disc degeneration, lumbar region with discogenic back pain only (principal); M48.061 Spinal stenosis, lumbar region without neurogenic claudication; R53.1 Weakness; R26.2 Difficulty in walking, not elsewhere classified; R30.0 Dysuria; I50.32 Chronic diastolic (congestive) heart failure; E11.9 Type 2 diabetes mellitus without complications; K44.9 Diaphragmatic hernia without obstruction or gangrene; M41.86 Other forms of scoliosis, lumbar region; I73.9 Peripheral vascular disease, unspecified; Z66 Do not resuscitate; Z95.0 Presence of cardiac pacemaker; Z96.653 Presence of artificial knee joint, bilateral; Z79.01 Long term (current) use of anticoagulants; Z79.4 Long term (current) use of insulin; Z79.899 Other long term (current) drug therapy; E83.42 Hypomagnesemia; R79.89 Other specified abnormal findings of blood chemistry; E46 Unspecified protein-calorie malnutrition; E03.9 Hypothyroidism, unspecified; I87.2 Venous insufficiency (chronic) (peripheral); R60.0 Localized edema; K21.9 Gastro-esophageal reflux disease without esophagitis; J45.909 Unspecified asthma, uncomplicated; Z85.42 Personal history of malignant neoplasm of other parts of uterus; Z60.8 Other problems related to social environment
CPT/HCPCS: 00123; 36415; 51701; 80053; 83690; 93005; 96374; 97161; 99285; 74176; 81003; 83735; 84484; 85025; 93010; 99236; G0378; J1815; J1885; J3490

== ENCOUNTER → 2025-03-04 09:20 | Outpatient (BNVA) | payer MEDICARE, SELFPAY | PROVIDERS: PCP Family Medicine; Referring Provider Student in an Organized Health Care Education/Training Program; Visit Provider Podiatrist | DX: L60.3 Nail dystrophy (principal); B35.1 Tinea unguium; E11.42 Type 2 diabetes mellitus with diabetic polyneuropathy; I73.89 Other specified peripheral vascular diseases; L60.2 Onychogryphosis; I87.2 Venous insufficiency (chronic) (peripheral); R60.0 Localized edema; R09.89 Other specified symptoms and signs involving the circulatory and respiratory systems; L65.9 Nonscarring hair loss, unspecified; R20.8 Other disturbances of skin sensation; R23.8 Other skin changes; I83.93 Asymptomatic varicose veins of bilateral lower extremities; L60.8 Other nail disorders; L85.8 Other specified epidermal thickening | CPT/HCPCS: 11720; 11719 ==

== ENCOUNTER → 2025-03-13 09:42 | Outpatient (BNVA) | payer MEDICARE, SELFPAY | PROVIDERS: PCP Family Medicine; Visit Provider Registered Nurse | DX: I44.30 Unspecified atrioventricular block (principal); I48.91 Unspecified atrial fibrillation; I50.32 Chronic diastolic (congestive) heart failure; Z79.01 Long term (current) use of anticoagulants; Z79.899 Other long term (current) drug therapy; Z45.018 Encounter for adjustment and management of other part of cardiac pacemaker | CPT/HCPCS: 93280 ==

== ENCOUNTER → 2025-04-05 01:24 | Outpatient (CLI) | payer MEDICARE, SELFPAY ==
--- NOTE | 2025-04-05 12:30 | DI.US_ITS ---
APPROVED REPORT EXAM: Comprehensive 2D, Doppler, and color-flow Echocardiogram Patient Location: Out-Patient Communications Department Chairperson: Casey Howell RDCS (AE) Indications: Heart failure, pacemaker Conclusion Normal left ventricular wall thickness and chamber size. Ejection fraction is 55%. Wall motion is normal Normal right ventricular size and function Moderately dilated left atrium. Mildly dilated right atrium Device lead noted in the right heart Trileaflet aortic valve with mild regurgitation Mild tricuspid and mitral regurgitation. Estimated right ventricular systolic pressure is 28 mmHg Wall motion Left Ventricle The left ventricle is normal size. The left ventricular systolic function is normal. The left ventricular ejection fraction is within the normal range. There is normal left ventricular wall thickness. No segmental wall motion abnormalities There is no ventricular septal defect visualized. LVEF is 55%. Right Ventricle The right ventricle is normal size. The right ventricular systolic function is normal. Pacemaker lead is present in the right ventricle. Atria The left atrium size is moderately dilated The right atrium size is mildly dilated The interatrial septum is intact with no evidence for an atrial septal defect. Aortic Valve The aortic valve is normal in structure. Aortic valve is trileaflet. There is no aortic valvular stenosis. Mild aortic regurgitation. Mitral Valve The mitral valve is normal in structure. No evidence of mitral valve stenosis. Mild mitral regurgitation. Tricuspid Valve The tricuspid valve is normal in structure. There is no tricuspid valve stenosis. Mild tricuspid regurgitation. The RVSP is 27.6 mmHg. Pulmonic Valve The pulmonary valve is normal in structure. There is no pulmonic valvular stenosis. Trace pulmonic regurgitation. Great Vessels The aortic root is normal in size. The ascending aorta is normal in size. Aortic arch is normal in caliber. IVC is normal in size and collapses >50% with inspiration. Pericardium There is no pericardial effusion. 2D Dimensions IVSD d PLAX 0.81 cm F: 0.6-1.0 Ao Root d 2.60 cm F: 2.7 - 3.3 LVPW d PLAX 0.82 cm F: 0.6 - 1.0 Ao Asc Diam d 3.13 cm F: 2.3 - 3.1 LVID d PLAX 4.43 cm F: 3.8 - 5.2 LVDs 3.43 cm F: 2.2 - 3.5 LV EF Teichholz 45.6 % FS 22.58 % LV EDV (Teich) 89.3 mL LV ESV (Teich) 48.5 mL Stroke Vol Index (Teich) 24.69 M-Mode TAPSE 2.45 cm (M/F) >1.7 Auto EF LV EDV A4C 73.5 mL LV EDV A2C 79.0 mL LV EDV BP 77.6 mL LV ESV A4C 38.7 mL LV ESV A2C 38.9 mL LV ESV BP 38.9 mL LVEF(%) A4C 47.4 % LVEF(%) A2C 50.8 % LVEF(%) BP 49.9 % LV SV A4C 34.9 ml LV SV A2C 40.1 ml LV SV BP 38.7 ml LV CO A4C 2.8 L/min LV CO A2C 3.5 L/min LV CO BP 3.2 L/min HR A4C 81.64 BPM HR A2C 87.38 BPM LV EDV Index (BP) LA Volume LA Length A4C 4.9 cm LA Length A2C 5.8 cm LA Area A4C s 13.78 cm2 LA Area A2C s 17.08 cm2 LA Vol A4C A-L 33.15 mL LA Vol A2C A-L 42.98 mL LA Vol Biplane A-L 41.1 mL LA Vol/BSA A4C A-L LA Vol/BSA A2C A-L LA Vol/BSA BP A-L 24.9 mL/m2 LA Vol A4C MOD 31.1 mL LA Vol A2C MOD 42.1 mL LA Vol BP MOD 39.0 mL RA Volume RA Area A4C 14.4 cm2 RA ESV A4C (A-L) 34.5mL RA Vol/BSA A4C A-L RA Length A4C 5.1 cm RA ESV A4C (MOD) 34.9mL LV Diastology MV E' lateral 0.120 (>0.1 m/s) MV E Vmax 0.96 (0.4-1.3 m/s) Aortic Valve AoV Vmax 1.21 m/s LVOT Vmax 0.76 m/s AoV Peak Grad 43.9 mmHg LVOT Peak Grad 2.3 mmHg AoV Area (Vmax) 1.51 cm2 LVOT VTI 0.153 m AoV VTI 0.268 m LVOT Mean Grad 1.2 mmHg AoV Mean Bret. 0.85 m/s LVOT SV 36.64 mL AoV Mean Grad 3.3 mmHg LVOT Diam s 1.70 cm AoV Area (VTI) 1.37 cm2 AV Regurg Peak Gr. 5.88 mmHg Velocity Ratio 0.63 AR Decel [place] 2.2m/sec2 AR DT 2098 msec AR PHT 608 msec AR Vmax 4.52 m/s Mitral Valve MV Vmax TIPS 0.92 m/s MV Mean Grad 1.3 (<2mmHg) MV VTI 0.194 m Pulmonary Valve PV Vmax 1.08 (0.5-1.5 m/s) RVOT Vmax 0.69 m/s PV Peak Grad 4.6 mmHg RVOT Peak Gr. 1.9 mmHg PV Mean Bret 0.68 m/s RVOT VTI 0.140 m PV Mean Grad 2.1 mmHg RVOT Mean Gr. 1.0 mmHg Tricuspid Valve RA Pressure 3.00 mmHg TR Vmax 2.48 m/s TR Peak Grad 24.6 mmHg RVSP (TR) 27.6 mmHg
== END ==
LOC: DI 01:24
PROVIDERS: PCP Family Medicine; Visit Provider Registered Nurse
DX: I50.30 Unspecified diastolic (congestive) heart failure (principal); I08.1 Rheumatic disorders of both mitral and tricuspid valves
CPT/HCPCS: 93306

== ENCOUNTER → 2025-04-15 14:50 | Outpatient (BNVA) | payer MEDICARE, SELFPAY | PROVIDERS: PCP Family Medicine; Referring Provider Family Medicine; Visit Provider Physician Assistant | DX: M16.11 Unilateral primary osteoarthritis, right hip (principal) | CPT/HCPCS: 99213 ==